=== PATIENT | female | born 1940 | race African-American/Black ===

== ENCOUNTER 2016-06-11 14:03 | Inpatient (IN) | payer MEDICARE, MEDICAID ==
[~2016-06-11] VITALS: Ht 165.1 cm; Wt 88.5 kg
[~2016-06-11 14:03] MED LIST: ACETAMINOPHEN325 M1 ORAL; ALDACTONE25 MG ORAL; APRESOLINE10 MG ORAL; ATORVASTATIN CA10 MG ORAL; BP MEDS; COLACE100 MG ORAL; FLUCONAZOLE100 MG ORAL; FUROSEMIDE40 MG ORAL; GABAPENTIN100 MG ORAL; METFORMIN HCL500 M1 ORAL; MONTELUKAST SOD10 MG ORAL; NAMENDA5 MG ORAL; NOVOLOG100 UNITS1 SUBQ; POTASSIUM20 MEQ/15 ORAL; PROTONIX40 MG ORAL; TORADOL30 MG IV; UNOBMED; VERAPAMIL ER240 MG ORAL; XARELTO15 MG NG
[2016-06-11 14:10] VITALS: BP 102/43
[2016-06-11] MEDS ORDERED: Vancomycin 1.5gm/D5W 300ml 325 ML IVPB ONE (14:30)
--- NOTE | 2016-06-11 14:37 | Emergency Room Report ---
History of Present Illness General Chief Complaint: Altered Level of Consciousness Source: Medical Record, EMS Present Illness HPI 75 YOF BIBEMS from [facility] for "more altered than usual" and fever. EMS states patient currently being treated for UTI (Bactrim per SNF paperwork). Vitals there were hypotension, tachycardia, hypoxia. Improved with supplemental O2, IVF bolus en route. Fingerstick WNL. History of dementia. Patient not providing additional info. HPI otherwise limited. No family members present at time of endorsement. Allergies: Coded Allergies: ERYTHROMYCIN BASE (Verified Allergy, Intermediate, 06/11/16) MEPERIDINE (Verified Allergy, Unknown, 06/11/16) PENICILLINS (Verified Allergy, Unknown, 06/11/16) Patient History Past Medical History: CHF, dementia Past Surgical History: pacemaker Pertinent Family History: unable to obtain Social History: Denies: alcohol use, drug use, smoking Now: No Immunizations: UTD Reviewed Nursing Documentation: PMH: Agreed, PSxH: Agreed Nursing Documentation-PMH Hx Cardiac Problems: Yes Hx Hypertension: Yes Hx Pacemaker: Yes Hx Asthma: Yes Hx COPD: Yes Hx Diabetes: Yes Hx Cancer: No Hx Gastrointestinal Problems: Yes History Of Psychiatric Problem: Yes - dementia Hx Neurological Problems: Yes - neuralgia Review of Systems All Other Systems: limited Physical Exam Vital Signs Date Time Temp Pulse Resp B/P Pulse Ox O2 Delivery O2 Flow Rate FiO2 06/11/16 14:05 99.7 80 20 90/60 98 Nasal Cannula Sp02 EP Interpretation: reviewed, abnormal General Appearance: no apparent distress, non-toxic, lethargic, obese, other Head: normocephalic, atraumatic Eyes: bilateral eye EOMI, bilateral eye PERRL ENT: normal ENT inspection, hearing grossly normal, normal pharynx, no angioedema, TMs + canals normal, uvula midline, dry mucus membranes Neck: normal inspection, full range of motion, supple, thyroid normal, no meningismus, no bony tend Respiratory: normal inspection, lungs clear, normal breath sounds, no respiratory distress, no retraction, no wheezing Cardiovascular #1: regular rate, rhythm, no edema Gastrointestinal: normal inspection, normal bowel sounds, non tender, soft, no guarding, no hernia Genitourinary: no CVA tenderness Musculoskeletal: normal inspection, back normal, normal range of motion, Lorne' s Sign negative, other - lower extremity contractures Neurologic: normal inspection, responsive, customer service assistant III-XII nml as tested, motor strength/tone normal, other - Opens eyes to commands. Knows name. Skin: normal inspection, normal color, no rash Lymphatic: normal inspection Procedures Critical Care Time Critical Care Time CC time 35 minutes Care for a 75 YOF with AMS, febrile, hypotensive DDx includes likely sepsis, metabolic abnormality Patient is disoriented, no obvious sign of trauma. Comprehensive physical exam completed, atraumatic. Unreliable history from patient. Labs include CBC, chem panel, CT head, EKG 12 lead and constant cardiac rhythm strip monitoring, IV established, Blood Cx Airway adequately maintained by patient upon arrival. EKG reveals atrial paced Empiric Abx and IVF bolus given for suspected sepsis. Will not give full bolus because of patient's history of CHF. Physician spent 35 minutes of direct critical care time monitoring patient's respiratory, cardiac and neurological status, reassessment, review of imaging, labs and discussion with attending hospitalist. Does not include procedures Medical Decision Making Medicare Attestation I Derek Anne MD hereby attest that the medical record entry for date of service, 03/17/16 accurately reflects signatures/notations that I made in my capacity as MD when I treated/diagnosed the above listed Medicare beneficiary. I attest that this information is true, accurate and complete to the best of my knowledge. I understand that any falsification, omission, or concealment of material fact may subject me to administrative, civil, or criminal liability. This patient warrants hospital admission for extreme of age and has a condition that cannot be treated as outpatient. Diagnostic Impression: Primary Impression: Altered mental status Qualified Codes: R41.82 - Altered mental status, unspecified Additional Impression: Sepsis due to urinary tract infection ER Course Labs: 21k. UA + for nitrites. CXR does not show PNA. Unchanged from previous Empiric Abx given DC tylenol given for fever Only 1L NS given as patient with history of CHF and has interstitial fluid on exam Endorsed to Dr Echevarria at 346pm for tele admission EKG Diagnostic Results Rate: tachycardiac, other - atrial senses, ventricular paced Rhythm Strip Diag. Results EP Interpretation: yes Rate: 109 Rhythm: no PVC's, no ectopy Chest X-Ray Diagnostic Results EP Interpretation: Yes Findings: no consolidation, no effusion, no pneumothorax, no acute cardiopulmonary disease Number of Views: 1 Last Vital Signs Date Time Temp Pulse Resp B/P Pulse Ox O2 Delivery O2 Flow Rate FiO2 06/11/16 14:05 99.7 80 20 90/60 98 Nasal Cannula Status: improved Disposition: ADMITTED INPATIENT Condition: Critical Referrals: Zion Echevarria MD (PCP) DEREK ANNE M.D. Jun 11, 2016 14:37
--- NOTE | 2016-06-11 15:03 | Diagnostic Imaging Report ---
Indication: Dyspnea Comparison: 09/01/15 A single view chest radiograph was obtained. Findings: There is hazy increased vascularity within the lungs. Findings do not appear significantly different from the last study. There is a pacemaker on the left. Aorta is enlarged and calcified. Bones are osteopenic. Impression: Some pulmonary vascularity without overt CHF.
[2016-06-11] MEDS ORDERED: Acetaminophen 650 MG SUPP RECTAL ONE (15:15)
[2016-06-11 15:18] LABS: APPEARANCE,URINE CLEAR; KETONES,URINE NEGATIVE (NEGATIVE); LEUKOCYTE ESTERASE ,URINE 1+ (NEGATIVE); MEAN CORPUSCULAR HEMOGLOBIN 27.5 PG (27.0-31.0); MEAN CORPUSCULAR HGB CONC 32.7 G/DL (32.0-36.0); MEAN CORPUSCULAR VOLUME 84 FL (80-99); MEAN PLATELET VOLUME 7.8 FL (6.5-10.1); NITRITE,URINE POSITIVE (NEGATIVE); PH,URINE 6 (4.5-8.0); PLATELET COUNT 110 K/UL (150-450); PROTEIN,URINE NEGATIVE (NEGATIVE); RED BLOOD COUNT 5.31 M/UL (4.20-5.40); RED CELL DISTRIBUTION WIDTH 13.4 % (11.6-14.8); UROBILINOGEN,URINE NORMAL MG/DL (0.0-1.0); WHITE BLOOD COUNT 20.6 K/UL (4.8-10.8)
[2016-06-11 15:21] VITALS: BP 103/52
[2016-06-11 15:25] LABS: BACTERIA,URINE MANY /HPF; RBC,URINE 0-2 /HPF (0 - 2); SQUAMOUS EPITHELIAL CELL,UR OCCASIONAL /LPF (NONE/OCC)
[2016-06-11] MEDS ORDERED: GABAPENTIN300 MG ORAL (15:31)
[2016-06-11] MEDS ORDERED: DUONEB 0.5-3(2.53 ML HHN (15:31)
[2016-06-11] MEDS ORDERED: IBUPROFEN600 MG ORAL (15:31)
[2016-06-11 15:44] LABS: ALANINE AMINOTRANSFERASE 170 U/L (3-33); ANION GAP 19 (5-15); ASPARTATE AMINO TRANSFERASE 90 U/L (5-40); CALCIUM 8.9 mg/dL (8.6-10.2); CARBON DIOXIDE 25 mEQ/L (20-30); CHLORIDE 90 mEQ/L (98-107); CREATININE 1.2 mg/dL (0.5-0.9); HEMOLYSIS 11; POTASSIUM 3.9 mEQ/L (3.4-4.9); SODIUM 134 mEQ/L (135-145); TOTAL PROTEIN 7.2 g/dL (6.6-8.7)
[2016-06-11] MEDS ORDERED: DiphenhydrAMINE 50mg/ml Inj IM ONE (15:45)
[2016-06-11] MEDS ORDERED: LORazepam Inj 2mg/ml 1ml IM ONE (15:45)
[2016-06-11 15:46] LABS: TROPONIN I < 0.30 ng/mL (<=0.30)
[2016-06-11 15:51] LABS: REFLEX LACTIC ACID YES OR NO YES
[2016-06-11 15:54] LABS: CKMB < 1.5 ng/mL (< 3.8)
[2016-06-11 16:07] LABS: BILIRUBIN,DIRECT 0.4 mg/dL (0.1-0.3)
[2016-06-11 16:17] LABS: BAND NEUTROPHILS % (MANUAL) 10 % (0-8); LYMPHOCYTES % (MANUAL) 8 % (20-45); NEUTROPHILS % (MANUAL) 81 % (45-75); TOTAL CELLS COUNTED 100
[2016-06-11 16:26] LABS: BASOPHILS % (MANUAL) 0 % (0-2); EOSINOPHILS % (MANUAL) 0 % (0-3); PLATELET ESTIMATE DECREASED
[2016-06-11 16:33] LABS: PLATELET MORPHOLOGY NORMAL
[2016-06-11 17:56] VITALS: BP 92/49
[2016-06-11 20:00] VITALS: BP 85/51
[2016-06-11] MEDS: Docusate 100mg cap ORAL SCH (20:36)
[2016-06-11] MEDS ORDERED: NovoLOG Insulin Flexpen SUBQ SCH (21:00)
--- NOTE | 2016-06-11 21:39 | History & Physical ---
History and Physical History & Physicial job # [id number] Zion Echevarria MD Jun 11, 2016 21:39
[2016-06-11] MEDS: Cefepime HCl 1 GM in D5W 55 ML IVPB SCH (22:19)
[2016-06-11] MEDS: Xarelto 15mg tab ORAL SCH (22:28)
[2016-06-11] MEDS: Verapamil 80mg tab ORAL SCH (22:28)
[2016-06-11] MEDS: NovoLOG Insulin Flexpen SUBQ SCH (22:30)
[2016-06-11] MEDS ORDERED: Acetaminophen 650 MG SUPP RECTAL PRN (23:00)
[2016-06-12] VITALS: BP 98/51
--- NOTE | 2016-06-12 01:08 | History and Physical Report ---
DATE OF ADMISSION: 06/11/2016 CHIEF COMPLAINT: Transfer from the skilled nursing of [facility] due to the altered mental status. HISTORY OF PRESENT ILLNESS: This is a 75-year-old very unfortunate female, with past medical history significant for sick sinus syndrome status post pacemaker, dyslipidemia, hypertension, chronic obstructive pulmonary disease, and asthma, who has presented to the hospital from [facility] after she was noted to be in altered mental status. The patient was noted to be febrile and was currently on Bactrim for a urinary tract infection, however, her symptoms not improved and she become hypotensive, tachycardic, and hypoxemic, and subsequently, the patient required oxygen and a bolus of fluid was given in route to the hospital. The patient's blood glucose level was checked and was within normal. Shortly after initial evaluation in the emergency room, the patient was admitted to the hospital with altered mental status, most likely secondary to toxic metabolic encephalopathy as well as sepsis secondary to urinary tract infection. History is very limited and the patient's history mostly taken from the previous admission to [place] as well as the skilled nursing documentation. PAST MEDICAL HISTORY: As above. History of sick sinus syndrome status post pacemaker, dyslipidemia, hypertension, chronic obstructive pulmonary disease, asthma, dysphagia, history of urinary tract infection in the past with a pyelonephritis and Enterococcus urinary tract infection, and the patient has a history of diabetes type 2. Previous admission was noted at the [facility] on 08/27/2015 with the same presentation with altered mental status as well as dehydration. PAST SURGICAL HISTORY: Significant for pacemaker in left chest wall. MEDICATIONS: At home significant for Lipitor, Colace, gabapentin, hydralazine, Namenda, Singulair, Protonix, and verapamil. ALLERGIES: Penicillin, meperidine, codeine, and erythromycin basis medication. However, the patient tolerated cefepime and cephalosporins in the past. SOCIAL HISTORY: assisted resident. No smoking, alcohol, or drugs. FAMILY HISTORY: Noncontributory. CODE STATUS: Full Code. REVIEW OF SYSTEMS: Limited secondary to the patient's status. She is not verbal at this time and confused. However at the nursing documentation, the patient was febrile and hypotensive. PHYSICAL EXAMINATION: VITAL SIGNS: On admission from the ER, temperature 99.7 degrees, pulse of 80, respirations 20, and blood pressure 90/60. GENERAL: The patient is awake, responsive to verbal comment only with one word, however, cannot follow commands. HEENT: Pupils reactive to light. Extraocular movements are intact. NECK: Supple. No JVD. LUNGS: Good air entry. Poor inspiratory effort. No wheezing or rales. HEART: Reveals S1 and S2. Tachycardic. Pacemaker in the left upper chest wall was noted. ABDOMEN: Soft and nontender. Mildly obese. EXTREMITIES: No cyanosis, clubbing, or edema. NEUROLOGIC: Very limited secondary to the patient's status. The patient is moving all her extremities very slowly. CENTRAL NERVOUS SYSTEM: Cranial nerves II through XII, unable to obtain due to the patient cannot follow commands. LABORATORY DATA: On admission from the ER, WBC of 20, hemoglobin of 14, hematocrit 44, and platelet is 110,000. Sodium 134, potassium 2.9, chloride 90, bicarb 25, BUN 33, creatinine 1.2, and glucose is 163. Lactic acid is 2.90 and second one is 3.40. Direct bilirubin of 0.4 and total bilirubin of 1.2. AST of 90, ALT of 170, and alkaline phosphatase was 113. First troponin less than 0.30. Urinalysis, +3 occult blood, positive nitrates, +1 leukocytes, 5 to 10 WBCs, and many bacteria. The patient had a chest x-ray and some pulmonary vascularity without overt congestive heart failure. ASSESSMENT: 1. Altered mental status, most likely secondary to toxic metabolic encephalopathy as a result of sepsis. 2. Sepsis secondary to urinary tract infection. 3. Mild obesity. 4. Hyponatremia. 5. Acute kidney injury most likely secondary to dehydration. 6. Dehydration and hypovolemia. 7. Sick sinus syndrome status post pacemaker. 8. Hypertension. 9. Dyslipidemia. 10. Chronic obstructive pulmonary disease and asthma. PLAN: Admit the patient to telemetry. We will follow up laboratory, intravenous hydration, septic workup, broad-spectrum antibiotics vancomycin and cefepime, and resume skilled nursing medications. Keep the patient NPO. We will follow up with the bedside swallow study in the morning and review records from prior admission. Dr. Mayes consultation from Cardiology and Dr. Carlos Woody from ID. Follow up with 2D echo and DVT prophylaxis. The patient is already on Xarelto. Zion Echevarria M.D. DR: YUKI JOB#: [id number] CC:
[2016-06-12 04:25] VITALS: BP 99/50
[2016-06-12] MEDS: NovoLOG Insulin Flexpen SUBQ SCH ×4 (06:30→22:02)
[2016-06-12 08:00] VITALS: BP 107/49
[2016-06-12 08:26] LABS: MEAN CORPUSCULAR HEMOGLOBIN 27.9 PG (27.0-31.0); MEAN CORPUSCULAR HGB CONC 33.2 G/DL (32.0-36.0); MEAN CORPUSCULAR VOLUME 84 FL (80-99); MEAN PLATELET VOLUME 7.7 FL (6.5-10.1); PLATELET COUNT 117 K/UL (150-450); RED BLOOD COUNT 4.29 M/UL (4.20-5.40); RED CELL DISTRIBUTION WIDTH 13.7 % (11.6-14.8)
[2016-06-12 08:36] LABS: ALANINE AMINOTRANSFERASE 125 U/L (3-33); ALBUMIN/GLOBULIN RATIO 0.9 (1.0-2.7); ANION GAP 14 (5-15); ASPARTATE AMINO TRANSFERASE 75 U/L (5-40); CARBON DIOXIDE 26 mEQ/L (20-30); CHLORIDE 96 mEQ/L (98-107); CREATININE 1.2 mg/dL (0.5-0.9); HEMOLYSIS 3; MAGNESIUM 1.7 mg/dL (1.7-2.5); PHOSPHORUS 3.8 mg/dL (2.5-4.8); SODIUM 136 mEQ/L (135-145); TOTAL PROTEIN 6.1 g/dL (6.6-8.7)
[2016-06-12 08:37] LABS: WHITE BLOOD COUNT 26.6 K/UL (4.8-10.8)
[2016-06-12 09:00] LABS: BILIRUBIN,DIRECT 0.5 mg/dL (0.1-0.3)
[2016-06-12] MEDS: Docusate 100mg cap ORAL SCH ×2 (09:00→22:00)
[2016-06-12] MEDS: Verapamil 80mg tab ORAL SCH ×2 (09:00→22:00)
[2016-06-12 10:14] LABS: BAND NEUTROPHILS % (MANUAL) 1 % (0-8); BASOPHILS % (MANUAL) 0 % (0-2); EOSINOPHILS % (MANUAL) 0 % (0-3); HYPOCHROMASIA 1+; LYMPHOCYTES % (MANUAL) 13 % (20-45); NEUTROPHILS % (MANUAL) 81 % (45-75); PLATELET ESTIMATE DECREASED; PLATELET MORPHOLOGY NORMAL; TOTAL CELLS COUNTED 100
--- NOTE | 2016-06-12 11:56 | Wound Care Consultation ---
Wound Assessment Wound Assessment : Wound Number: #1 Wound Present on Admission: Yes New Wound: No Status Change of Wound: No Wound Location Body Site Modif: mid Wound Location Body Site: sacral Wound Type: pressure ulcer Dyan Test: Does not Dyan Pressure Ulcer Stage: IV/unstageable Wound Thickness: Full Thickness Wound Length: 2.0 Wound Width: 2.0 Wound Depth: 0.5 Percent of Wound [place]/Red: 50 Percent of Wound Purple/Maroon: 50 Wound Drainage Description: Serosanguineous Wound Drainage Amount: Moderate Wound Drainage Odor: None/Absent Tissue Surrounding Wound: Macerated Wound General Appearance: Reddened - 50% maroon color also noted to wound bed, Draining Wound Comment #1 Sacral pressure ulcer stage IV/Unstageable. #2 Right and left superior gluteal fold full thickness scar tissue. Recommendation -Local wound care as ordered. -Apply Low air loss overlay mattress. -Turn and reposition. -Keep clean and dry. -Optimize nutrition. -Heel protectors. -Offload affected area. -Assess and notify MD for change of condition. MICHAEL TAMAYO Jun 12, 2016 11:56
[2016-06-12 12:00] VITALS: BP 107/59
[2016-06-12] MEDS ORDERED: Amikacin Rx to dose MISC PRN (13:45)
--- NOTE | 2016-06-12 13:45 | Infectious Diseases Prog Note ---
Assessment/Plan Assessment/Plan Full consult to follow: A) 1) uti, sepsis, ? c.diff., ? hx multi drug resistant uti per pt, ? hx abx 2) allergies - pcn 3) pmh noted P) 1) cefepime, flagyl, amikacin to cover mdr 2) check uc, watch cr closely and wbc, check c.diff. if has diarrhea 3) thank you Subjective Allergies: Coded Allergies: ERYTHROMYCIN BASE (Verified Allergy, Intermediate, 06/11/16) CODEINE (Verified Allergy, Unknown, 06/11/16) MEPERIDINE (Verified Allergy, Unknown, 06/11/16) PENICILLINS (Verified Allergy, Unknown, 06/11/16) Objective Vital Signs Last 24 Hour Vital Signs Date Time Temp Pulse Resp B/P Pulse Ox O2 Delivery O2 Flow Rate FiO2 06/12/16 12:00 95 06/12/16 09:00 89 107/49 06/12/16 08:00 96.9 89 17 107/49 95 Nasal Cannula 2.0 06/12/16 08:00 87 06/12/16 04:25 98.2 89 20 99/50 98 Nasal Cannula 2.0 06/12/16 04:05 91 06/12/16 04:00 86 06/12/16 00:00 98.4 94 20 98/51 100 Nasal Cannula 2.0 06/11/16 20:04 101 06/11/16 20:00 101.7 101 20 85/51 Nasal Cannula 2.0 100 06/11/16 17:56 99.9 89 20 92/49 Nasal Cannula 06/11/16 17:38 85 06/11/16 16:45 100.3 85 24 86/45 97 Nasal Cannula 2.0 06/11/16 16:34 100.3 06/11/16 16:08 100.3 06/11/16 15:21 86 24 103/52 97 Nasal Cannula 2.0 06/11/16 14:10 103.3 112 24 102/43 97 Nasal Cannula 2.0 06/11/16 14:05 99.7 80 20 90/60 98 Nasal Cannula Height (Feet): 5 Height (Inches): 5.00 Weight (Pounds): 195 Microbiology Date/Time Source Procedure Growth Status 06/11/16 14:30 Urine,Clean Catch Urine Culture - Preliminary Gram Negative Bacillus 1 Resulted Laboratory Tests Test 06/11/16 14:30 06/11/16 16:20 06/12/16 07:22 White Blood Count 20.6 K/UL (4.8-10.8) H 26.6 K/UL (4.8-10.8) *H Red Blood Count 5.31 M/UL (4.20-5.40) 4.29 M/UL (4.20-5.40) Hemoglobin 14.6 G/DL (12.0-16.0) 12.0 G/DL (12.0-16.0) Hematocrit 44.7 % (37.0-47.0) 36.0 % (37.0-47.0) L Mean Corpuscular Volume 84 FL (80-99) 84 FL (80-99) Mean Corpuscular Hemoglobin 27.5 PG (27.0-31.0) 27.9 PG (27.0-31.0) Mean Corpuscular Hemoglobin Concent 32.7 G/DL (32.0-36.0) 33.2 G/DL (32.0-36.0) Red Cell Distribution Width 13.4 % (11.6-14.8) 13.7 % (11.6-14.8) Platelet Count 110 K/UL (150-450) L 117 K/UL (150-450) L Mean Platelet Volume 7.8 FL (6.5-10.1) 7.7 FL (6.5-10.1) Neutrophils (%) (Auto) % (45.0-75.0) % (45.0-75.0) Lymphocytes (%) (Auto) % (20.0-45.0) % (20.0-45.0) Monocytes (%) (Auto) % (1.0-10.0) % (1.0-10.0) Eosinophils (%) (Auto) % (0.0-3.0) % (0.0-3.0) Basophils (%) (Auto) % (0.0-2.0) % (0.0-2.0) Differential Total Cells Counted 100 100 Neutrophils % (Manual) 81 % (45-75) H 81 % (45-75) H Lymphocytes % (Manual) 8 % (20-45) L 13 % (20-45) L Monocytes % (Manual) 1 % (1-10) 5 % (1-10) Eosinophils % (Manual) 0 % (0-3) 0 % (0-3) Basophils % (Manual) 0 % (0-2) 0 % (0-2) Band Neutrophils 10 % (0-8) H 1 % (0-8) Platelet Estimate Decreased L Decreased L Platelet Morphology Normal Normal Red Blood Cell Morphology Normal Urine Color Pale yellow Urine Appearance Clear Urine pH 6 (4.5-8.0) Urine Specific [place] 1.010 (1.005-1.035) Urine Protein Negative (NEGATIVE) Urine Glucose (UA) Negative (NEGATIVE) Urine Ketones Negative (NEGATIVE) Urine Occult Blood 3+ (NEGATIVE) H Urine Nitrite Positive (NEGATIVE) H Urine Bilirubin Negative (NEGATIVE) Urine Urobilinogen Normal MG/DL (0.0-1.0) Urine Leukocyte Esterase 1+ (NEGATIVE) H Urine RBC 0-2 /HPF (0 - 2) Urine WBC 5-10 /HPF (0 - 2) H Urine Squamous Epithelial Cells Occasional /LPF Urine Bacteria Many /HPF (NONE) H Sodium Level 134 mEQ/L (135-145) L 136 mEQ/L (135-145) Potassium Level 3.9 mEQ/L (3.4-4.9) 4.0 mEQ/L (3.4-4.9) Chloride Level 90 mEQ/L (98-107) L 96 mEQ/L (98-107) L Carbon Dioxide Level 25 mEQ/L (20-30) 26 mEQ/L (20-30) Anion Gap 19 (5-15) H 14 (5-15) Blood Urea Nitrogen 33 mg/dL (7-23) H 36 mg/dL (7-23) H Creatinine 1.2 mg/dL (0.5-0.9) H 1.2 mg/dL (0.5-0.9) H Estimat Glomerular Filtration Rate mL/min (>60) mL/min (>60) Glucose Level 168 mg/dL (74-106) H 146 mg/dL (74-106) H Hemoglobin A1c 7.0 % (< 6.0) H Lactic Acid Level 2.90 mmol/L (0.66-2.22) H 3.40 mmol/L (0.66-2.22) H Calcium Level 8.9 mg/dL (8.6-10.2) 8.0 mg/dL (8.6-10.2) L Total Bilirubin 1.2 mg/dL (0.0-1.2) 1.2 mg/dL (0.0-1.2) Direct Bilirubin 0.4 mg/dL (0.1-0.3) H 0.5 mg/dL (0.1-0.3) H Aspartate Amino Transf (AST/SGOT) 90 U/L (5-40) H 75 U/L (5-40) H Alanine Aminotransferase (ALT/SGPT) 170 U/L (3-33) H 125 U/L (3-33) H Alkaline Phosphatase 113 U/L (35-104) H 90 U/L (35-104) Total Creatine Kinase 24 U/L (26-140) L Creatine Kinase MB < 1.5 ng/mL (< 3.8) Creatine Kinase MB Relative Index 6.2 Troponin I < 0.30 ng/mL (<=0.30) Total Protein 7.2 g/dL (6.6-8.7) 6.1 g/dL (6.6-8.7) L Albumin 3.6 g/dL (3.5-5.2) 2.9 g/dL (3.5-5.2) L Globulin 3.6 g/dL 3.2 g/dL Albumin/Globulin Ratio 1.0 (1.0-2.7) 0.9 (1.0-2.7) L Hypochromasia 1+ Phosphorus Level 3.8 mg/dL (2.5-4.8) Magnesium Level 1.7 mg/dL (1.7-2.5) Current Medications Medications (Trade) Dose Ordered Sig/Joann Route PRN Reason Start Time Stop Time Status Last Admin Dose Admin Acetaminophen (Tylenol) 650 mg Q4H PRN ORAL Mild Pain / TEMP>101 06/11/16 18:45 07/11/16 18:44 Acetaminophen (Tylenol) 650 mg Q4H PRN RECTAL Mild Pain/Temp > 100.5 06/11/16 23:00 07/11/16 22:59 Atorvastatin Calcium (Lipitor) 10 mg BEDTIME ORAL 06/11/16 21:00 07/11/16 20:59 Cefepime HCl 1 gm/ Dextrose 55 ml @ 110 mls/hr DAILY@2100 IVPB 06/11/16 22:30 06/18/16 22:29 06/11/16 22:19 Dextrose STAT PRN IV Hypoglycemia 06/11/16 21:30 07/11/16 21:29 Docusate Sodium (Colace) 100 mg EVERY 12 HOURS ORAL 06/11/16 21:00 07/11/16 20:59 Ibuprofen (Advil) 200 mg Q4H PRN ORAL For Pain 06/11/16 18:45 07/11/16 18:44 Insulin Aspart (NovoLOG) BEFORE MEALS AND HS SUBQ 06/11/16 22:30 07/11/16 22:29 Pantoprazole (Protonix) 40 mg DAILY ORAL 06/12/16 09:00 07/12/16 08:59 Rivaroxaban (Xarelto) 15 mg QPM ORAL 06/11/16 23:00 07/11/16 22:59 Sodium Chloride (Sodium Chloride 1000ml bag) 1,000 ml @ 75 mls/hr [id number] IV 06/11/16 23:00 07/11/16 22:59 06/12/16 13:19 Verapamil HCl (Calan) 80 mg Q12HR ORAL 06/11/16 23:00 07/11/16 22:59 RAMÓN ALMARAZ 2, 2017 13:45
[2016-06-12] MEDS: metroNIDAZOLE 500mg tab ORAL SCH ×2 (14:42→21:59)
--- NOTE | 2016-06-12 15:00 | Cardiac Electrophysiology PN ---
Subjective Subjective 1. Status post [employer] pacemaker. 2. Hypertension. 3. CHF with EF 40% by echo. 4. Bilateral acute lower extremity deep venous thrombosis, on Xarelto 15 mg b.i.d. 5. Hyperlipidemia. 6. UTI sepsiss Dictated Objective Last 24 Hour Vital Signs Date Time Temp Pulse Resp B/P Pulse Ox O2 Delivery O2 Flow Rate FiO2 06/12/16 12:00 97.5 92 17 107/59 97 Room Air 93 06/12/16 12:00 95 06/12/16 09:00 89 107/49 06/12/16 08:00 96.9 89 17 107/49 95 Nasal Cannula 2.0 06/12/16 08:00 87 06/12/16 04:25 98.2 89 20 99/50 98 Nasal Cannula 2.0 06/12/16 04:05 91 06/12/16 04:00 86 06/12/16 00:00 98.4 94 20 98/51 100 Nasal Cannula 2.0 06/11/16 20:04 101 06/11/16 20:00 101.7 101 20 85/51 Nasal Cannula 2.0 100 06/11/16 17:56 99.9 89 20 92/49 Nasal Cannula 06/11/16 17:38 85 06/11/16 16:45 100.3 85 24 86/45 97 Nasal Cannula 2.0 06/11/16 16:34 100.3 06/11/16 16:08 100.3 06/11/16 15:21 86 24 103/52 97 Nasal Cannula 2.0 Intake and Output 06/11/16 06/12/16 19:00 07:00 Intake Total 1000 ml 600 ml Output Total 650 ml Balance 1000 ml -50 ml IV Total 600 ml Other 1000 ml Output Urine Total 650 ml Laboratory Tests Test 06/11/16 16:20 06/12/16 07:22 Lactic Acid Level 3.40 mmol/L (0.66-2.22) H White Blood Count 26.6 K/UL (4.8-10.8) *H Red Blood Count 4.29 M/UL (4.20-5.40) Hemoglobin 12.0 G/DL (12.0-16.0) Hematocrit 36.0 % (37.0-47.0) L Mean Corpuscular Volume 84 FL (80-99) Mean Corpuscular Hemoglobin 27.9 PG (27.0-31.0) Mean Corpuscular Hemoglobin Concent 33.2 G/DL (32.0-36.0) Red Cell Distribution Width 13.7 % (11.6-14.8) Platelet Count 117 K/UL (150-450) L Mean Platelet Volume 7.7 FL (6.5-10.1) Neutrophils (%) (Auto) % (45.0-75.0) Lymphocytes (%) (Auto) % (20.0-45.0) Monocytes (%) (Auto) % (1.0-10.0) Eosinophils (%) (Auto) % (0.0-3.0) Basophils (%) (Auto) % (0.0-2.0) Differential Total Cells Counted 100 Neutrophils % (Manual) 81 % (45-75) H Lymphocytes % (Manual) 13 % (20-45) L Monocytes % (Manual) 5 % (1-10) Eosinophils % (Manual) 0 % (0-3) Basophils % (Manual) 0 % (0-2) Band Neutrophils 1 % (0-8) Platelet Estimate Decreased L Platelet Morphology Normal Hypochromasia 1+ Sodium Level 136 mEQ/L (135-145) Potassium Level 4.0 mEQ/L (3.4-4.9) Chloride Level 96 mEQ/L (98-107) L Carbon Dioxide Level 26 mEQ/L (20-30) Anion Gap 14 (5-15) Blood Urea Nitrogen 36 mg/dL (7-23) H Creatinine 1.2 mg/dL (0.5-0.9) H Estimat Glomerular Filtration Rate mL/min (>60) Glucose Level 146 mg/dL (74-106) H Calcium Level 8.0 mg/dL (8.6-10.2) L Phosphorus Level 3.8 mg/dL (2.5-4.8) Magnesium Level 1.7 mg/dL (1.7-2.5) Total Bilirubin 1.2 mg/dL (0.0-1.2) Direct Bilirubin 0.5 mg/dL (0.1-0.3) H Aspartate Amino Transf (AST/SGOT) 75 U/L (5-40) H Alanine Aminotransferase (ALT/SGPT) 125 U/L (3-33) H Alkaline Phosphatase 90 U/L (35-104) Total Protein 6.1 g/dL (6.6-8.7) L Albumin 2.9 g/dL (3.5-5.2) L Globulin 3.2 g/dL Albumin/Globulin Ratio 0.9 (1.0-2.7) L Microbiology Date/Time Source Procedure Growth Status 06/11/16 14:30 Urine,Clean Catch Urine Culture - Preliminary Gram Negative Bacillus 1 Resulted JAMAAL LAWS Jun 12, 2016 15:00
--- NOTE | 2016-06-12 15:47 | Consultation ---
History of Present Illness General Date patient seen: Jun 12, 2016 Chief Complaint: Altered Level of Consciousness Referring physician: Dr. Byrd Present Illness HPI 75 year old female with hx of COPD, DM, CVA, bed bound, pace maker brought in by paramedics from [facility] for "more altered than usual" and fever. EMS states patient currently being treated for UTI (Bactrim per SNF paperwork). She also had hypotension, tachycardia, hypoxia. Improved with supplemental O2 , IVF bolus en route. She was diagnosed to have sepsis and received abx in ER. Her initial mental status improved somewhat after initial treatment in the ER. She is admitted to telemetry to further work up Allergies: Coded Allergies: ERYTHROMYCIN BASE (Verified Allergy, Intermediate, 06/11/16) CODEINE (Verified Allergy, Unknown, 06/11/16) MEPERIDINE (Verified Allergy, Unknown, 06/11/16) PENICILLINS (Verified Allergy, Unknown, 06/11/16) Medication History Scheduled Atorvastatin Calcium* (Lipitor*), 10 MG ORAL BEDTIME, (Reported) Docusate Sodium* (Colace*), 100 MG ORAL EVERY 12 HOURS Furosemide* (Lasix*), 40 MG ORAL DAILY Gabapentin* (Gabapentin*), 100 MG ORAL TID Gabapentin* (Gabapentin*), 300 MG ORAL BID, (Reported) Hydralazine HCl (Hydralazine HCl), 25 MG ORAL EVERY 6 HOURS, (Reported) Insulin Aspart (Novolog Flexpen), 0 UNITS SUBQ BEFORE MEALS AND HS Memantine Hcl* (Namenda*), 5 MG ORAL BID, (Reported) Montelukast Sodium* (Montelukast Sodium*), 10 MG ORAL DAILY, (Reported) Pantoprazole* (Protonix*), 40 MG ORAL DAILY Potassium Chloride (Potassium Chloride), 10 MEQ ORAL DAILY Rivaroxaban (Xarelto), 15 MG NG BIAC Spironolactone (Aldactone), 25 MG ORAL DAILY Verapamil Hcl* (Calan Sr*), 250 MG ORAL DAILY, (Reported) Scheduled PRN Acetaminophen* (Acetaminophen*), 650 MG ORAL Q4H PRN for Mild Pain / TEMP>101 Ibuprofen* (Motrin*), 200 MG ORAL Q4HR PRN for For Pain, (Reported) Miscellaneous Medications Ipratropium/Albuterol Sulfate (DuoNeb 0.5-3(2.5)mg/3ml), 3 ML HHN, (Reported) Patient History Healthcare decision maker Resuscitation status Full Code Advanced Directive on File Past Medical/Surgical History Past Medical/Surgical History: (1) Pacemaker (2) Decubitus ulcer (3) COPD (chronic obstructive pulmonary disease) (4) Hypertension (5) Gout Review of Systems All Other Systems: negative except mentioned in HPI Physical Exam General Appearance: WD/WN Lines, tubes and drains: peripheral, central line HEENT: normocephalic Neck: non-tender, normal alignment Breasts: no masses Cardiovascular/Chest: normal peripheral pulses, normal rate, no JVD Abdomen: non tender Last 24 Hour Vital Signs Date Time Temp Pulse Resp B/P Pulse Ox O2 Delivery O2 Flow Rate FiO2 06/12/16 12:00 97.5 92 17 107/59 97 Room Air 93 06/12/16 12:00 95 06/12/16 09:00 89 107/49 06/12/16 08:00 96.9 89 17 107/49 95 Nasal Cannula 2.0 06/12/16 08:00 87 06/12/16 04:25 98.2 89 20 99/50 98 Nasal Cannula 2.0 06/12/16 04:05 91 06/12/16 04:00 86 06/12/16 00:00 98.4 94 20 98/51 100 Nasal Cannula 2.0 06/11/16 20:04 101 06/11/16 20:00 101.7 101 20 85/51 Nasal Cannula 2.0 100 06/11/16 17:56 99.9 89 20 92/49 Nasal Cannula 06/11/16 17:38 85 06/11/16 16:45 100.3 85 24 86/45 97 Nasal Cannula 2.0 06/11/16 16:34 100.3 06/11/16 16:08 100.3 Intake and Output 06/11/16 06/12/16 19:00 07:00 Intake Total 1000 ml 600 ml Output Total 650 ml Balance 1000 ml -50 ml IV Total 600 ml Other 1000 ml Output Urine Total 650 ml Laboratory Tests Test 06/11/16 16:20 06/12/16 07:22 Lactic Acid Level 3.40 mmol/L (0.66-2.22) H White Blood Count 26.6 K/UL (4.8-10.8) *H Red Blood Count 4.29 M/UL (4.20-5.40) Hemoglobin 12.0 G/DL (12.0-16.0) Hematocrit 36.0 % (37.0-47.0) L Mean Corpuscular Volume 84 FL (80-99) Mean Corpuscular Hemoglobin 27.9 PG (27.0-31.0) Mean Corpuscular Hemoglobin Concent 33.2 G/DL (32.0-36.0) Red Cell Distribution Width 13.7 % (11.6-14.8) Platelet Count 117 K/UL (150-450) L Mean Platelet Volume 7.7 FL (6.5-10.1) Neutrophils (%) (Auto) % (45.0-75.0) Lymphocytes (%) (Auto) % (20.0-45.0) Monocytes (%) (Auto) % (1.0-10.0) Eosinophils (%) (Auto) % (0.0-3.0) Basophils (%) (Auto) % (0.0-2.0) Differential Total Cells Counted 100 Neutrophils % (Manual) 81 % (45-75) H Lymphocytes % (Manual) 13 % (20-45) L Monocytes % (Manual) 5 % (1-10) Eosinophils % (Manual) 0 % (0-3) Basophils % (Manual) 0 % (0-2) Band Neutrophils 1 % (0-8) Platelet Estimate Decreased L Platelet Morphology Normal Hypochromasia 1+ Sodium Level 136 mEQ/L (135-145) Potassium Level 4.0 mEQ/L (3.4-4.9) Chloride Level 96 mEQ/L (98-107) L Carbon Dioxide Level 26 mEQ/L (20-30) Anion Gap 14 (5-15) Blood Urea Nitrogen 36 mg/dL (7-23) H Creatinine 1.2 mg/dL (0.5-0.9) H Estimat Glomerular Filtration Rate mL/min (>60) Glucose Level 146 mg/dL (74-106) H Calcium Level 8.0 mg/dL (8.6-10.2) L Phosphorus Level 3.8 mg/dL (2.5-4.8) Magnesium Level 1.7 mg/dL (1.7-2.5) Total Bilirubin 1.2 mg/dL (0.0-1.2) Direct Bilirubin 0.5 mg/dL (0.1-0.3) H Aspartate Amino Transf (AST/SGOT) 75 U/L (5-40) H Alanine Aminotransferase (ALT/SGPT) 125 U/L (3-33) H Alkaline Phosphatase 90 U/L (35-104) Total Protein 6.1 g/dL (6.6-8.7) L Albumin 2.9 g/dL (3.5-5.2) L Globulin 3.2 g/dL Albumin/Globulin Ratio 0.9 (1.0-2.7) L Height (Feet): 5 Height (Inches): 5.00 Weight (Pounds): 195 Medications Current Medications Medications (Trade) Dose Ordered Sig/Joann Route PRN Reason Start Time Stop Time Status Last Admin Dose Admin Acetaminophen (Tylenol) 650 mg Q4H PRN ORAL Mild Pain / TEMP>101 06/11/16 18:45 07/11/16 18:44 Acetaminophen (Tylenol) 650 mg Q4H PRN RECTAL Mild Pain/Temp > 100.5 06/11/16 23:00 07/11/16 22:59 Amikacin Protocol 1 ea 1 ea DAILY PRN MISC Per rx protocol 06/12/16 13:45 07/12/16 13:44 Amikacin Sulfate/ Dextrose (Amikin/D5W) 114 ml @ 228 mls/hr Q36H IV 06/12/16 16:00 06/19/16 15:59 Atorvastatin Calcium (Lipitor) 10 mg BEDTIME ORAL 06/11/16 21:00 07/11/16 20:59 Cefepime HCl 1 gm/ Dextrose 55 ml @ 110 mls/hr DAILY@2100 IVPB 06/11/16 22:30 06/18/16 22:29 06/11/16 22:19 Dextrose STAT PRN IV Hypoglycemia 06/11/16 21:30 07/11/16 21:29 Docusate Sodium (Colace) 100 mg EVERY 12 HOURS ORAL 06/11/16 21:00 07/11/16 20:59 Ibuprofen (Advil) 200 mg Q4H PRN ORAL For Pain 06/11/16 18:45 07/11/16 18:44 Insulin Aspart (NovoLOG) BEFORE MEALS AND HS SUBQ 06/11/16 22:30 07/11/16 22:29 Metronidazole (Flagyl) 500 mg EVERY 8 HOURS ORAL 06/12/16 14:00 06/19/16 13:59 06/12/16 14:42 Pantoprazole (Protonix) 40 mg DAILY ORAL 06/12/16 09:00 07/12/16 08:59 Rivaroxaban (Xarelto) 15 mg QPM ORAL 06/11/16 23:00 07/11/16 22:59 Sodium Chloride (Sodium Chloride 1000ml bag) 1,000 ml @ 75 mls/hr [id number] IV 06/11/16 23:00 07/11/16 22:59 06/12/16 13:19 Verapamil HCl (Calan) 80 mg Q12HR ORAL 06/11/16 23:00 07/11/16 22:59 Assessment/Plan Problem List: (1) Sepsis ICD Codes: A41.9 - Sepsis, unspecified organism SNOMED: 48882252 (2) COPD (chronic obstructive pulmonary disease) ICD Codes: J44.9 - Chronic obstructive pulmonary disease, unspecified SNOMED: 00305303 (3) Toxic metabolic encephalopathy ICD Codes: G92 - Toxic encephalopathy SNOMED: 864661507 (4) Pacemaker ICD Codes: Z95.0 - Presence of cardiac pacemaker SNOMED: 107762464 (5) Functional quadriplegia ICD Codes: R53.2 - Functional quadriplegia SNOMED: 902145122684254 (6) Hypertension ICD Codes: I10 - Essential (primary) hypertension SNOMED: 19183073 Assessment/Plan IV fluids lind cultures IV antibiotics check cultures check electrolytes respiratory treatment titrate fio2 to sat of 92% JONH RODRIGUEZ Jun 12, 2016 15:47
[2016-06-12 16:00] VITALS: BP 155/95
[2016-06-12] MEDS: Amikacin 1,000 MG in D5W 110 ML IV SCH (16:57)
[2016-06-12] MEDS: Xarelto 15mg tab ORAL SCH (16:57)
--- NOTE | 2016-06-12 17:12 | Internal Med Progress Note ---
Subjective Date of Service: Jun 12, 2016 Physician Name Chema Vázquez Attending Physician Zion Echevarria MD Current Medications Medications (Trade) Dose Ordered Sig/Joann Route PRN Reason Start Time Stop Time Status Last Admin Dose Admin Acetaminophen (Tylenol) 650 mg Q4H PRN ORAL Mild Pain / TEMP>101 06/11/16 18:45 07/11/16 18:44 06/12/16 16:58 Acetaminophen (Tylenol) 650 mg Q4H PRN RECTAL Mild Pain/Temp > 100.5 06/11/16 23:00 07/11/16 22:59 Amikacin Protocol 1 ea 1 ea DAILY PRN MISC Per rx protocol 06/12/16 13:45 07/12/16 13:44 Amikacin Sulfate/ Dextrose (Amikin/D5W) 114 ml @ 228 mls/hr Q36H IV 06/12/16 16:00 06/19/16 15:59 06/12/16 16:57 Atorvastatin Calcium (Lipitor) 10 mg BEDTIME ORAL 06/11/16 21:00 07/11/16 20:59 Cefepime HCl 1 gm/ Dextrose 55 ml @ 110 mls/hr DAILY@2100 IVPB 06/11/16 22:30 06/18/16 22:29 06/11/16 22:19 Dextrose STAT PRN IV Hypoglycemia 06/11/16 21:30 07/11/16 21:29 Docusate Sodium (Colace) 100 mg EVERY 12 HOURS ORAL 06/11/16 21:00 07/11/16 20:59 Ibuprofen (Advil) 200 mg Q4H PRN ORAL For Pain 06/11/16 18:45 07/11/16 18:44 Insulin Aspart (NovoLOG) BEFORE MEALS AND HS SUBQ 06/11/16 22:30 07/11/16 22:29 06/12/16 17:01 Metronidazole (Flagyl) 500 mg EVERY 8 HOURS ORAL 06/12/16 14:00 06/19/16 13:59 06/12/16 14:42 Ondansetron HCl (Zofran) 4 mg Q4H PRN IVP Nausea & Vomiting 06/12/16 16:45 07/12/16 16:44 06/12/16 17:00 Pantoprazole (Protonix) 40 mg DAILY ORAL 06/12/16 09:00 07/12/16 08:59 Rivaroxaban (Xarelto) 15 mg QPM ORAL 06/11/16 23:00 07/11/16 22:59 06/12/16 16:57 Sodium Chloride (Sodium Chloride 1000ml bag) 1,000 ml @ 75 mls/hr [id number] IV 06/11/16 23:00 07/11/16 22:59 06/12/16 13:19 Verapamil HCl (Calan) 80 mg Q12HR ORAL 06/11/16 23:00 07/11/16 22:59 Allergies: Coded Allergies: ERYTHROMYCIN BASE (Verified Allergy, Intermediate, 06/11/16) CODEINE (Verified Allergy, Unknown, 06/11/16) MEPERIDINE (Verified Allergy, Unknown, 06/11/16) PENICILLINS (Verified Allergy, Unknown, 06/11/16) ROS Limited/Unobtainable: Yes Subjective 75 YO F admitted with altered mental status. Now Urinary tract infection. C/O nausea and vomiting. Cover for Int Med-Dr Echevarria. Objective Last Vital Signs Date Time Temp Pulse Resp B/P Pulse Ox O2 Delivery O2 Flow Rate FiO2 06/12/16 12:00 97.5 92 17 107/59 97 Room Air 93 06/12/16 08:00 2.0 06/11/16 20:00 100 General Appearance: WD/WN, moderate distress, obese EENT: PERRL/EOMI, normal ENT inspection Neck: non-tender, normal alignment, supple Cardiovascular: normal peripheral pulses, normal rate, regular rhythm, no gallop/murmur, no JVD Respiratory/Chest: chest wall non-tender, lungs clear, normal breath sounds, no respiratory distress, no accessory muscle use Abdomen: no organomegaly, no mass, decreased bowel sounds, guarding, tender Extremities: normal range of motion Neurologic: community services officer II-XII grossly normal, no motor/sensory deficits Skin: normal pigmentation, warm/dry Laboratory Tests Test 06/12/16 07:22 White Blood Count 26.6 K/UL (4.8-10.8) *H Red Blood Count 4.29 M/UL (4.20-5.40) Hemoglobin 12.0 G/DL (12.0-16.0) Hematocrit 36.0 % (37.0-47.0) L Mean Corpuscular Volume 84 FL (80-99) Mean Corpuscular Hemoglobin 27.9 PG (27.0-31.0) Mean Corpuscular Hemoglobin Concent 33.2 G/DL (32.0-36.0) Red Cell Distribution Width 13.7 % (11.6-14.8) Platelet Count 117 K/UL (150-450) L Mean Platelet Volume 7.7 FL (6.5-10.1) Neutrophils (%) (Auto) % (45.0-75.0) Lymphocytes (%) (Auto) % (20.0-45.0) Monocytes (%) (Auto) % (1.0-10.0) Eosinophils (%) (Auto) % (0.0-3.0) Basophils (%) (Auto) % (0.0-2.0) Differential Total Cells Counted 100 Neutrophils % (Manual) 81 % (45-75) H Lymphocytes % (Manual) 13 % (20-45) L Monocytes % (Manual) 5 % (1-10) Eosinophils % (Manual) 0 % (0-3) Basophils % (Manual) 0 % (0-2) Band Neutrophils 1 % (0-8) Platelet Estimate Decreased L Platelet Morphology Normal Hypochromasia 1+ Sodium Level 136 mEQ/L (135-145) Potassium Level 4.0 mEQ/L (3.4-4.9) Chloride Level 96 mEQ/L (98-107) L Carbon Dioxide Level 26 mEQ/L (20-30) Anion Gap 14 (5-15) Blood Urea Nitrogen 36 mg/dL (7-23) H Creatinine 1.2 mg/dL (0.5-0.9) H Estimat Glomerular Filtration Rate mL/min (>60) Glucose Level 146 mg/dL (74-106) H Calcium Level 8.0 mg/dL (8.6-10.2) L Phosphorus Level 3.8 mg/dL (2.5-4.8) Magnesium Level 1.7 mg/dL (1.7-2.5) Total Bilirubin 1.2 mg/dL (0.0-1.2) Direct Bilirubin 0.5 mg/dL (0.1-0.3) H Aspartate Amino Transf (AST/SGOT) 75 U/L (5-40) H Alanine Aminotransferase (ALT/SGPT) 125 U/L (3-33) H Alkaline Phosphatase 90 U/L (35-104) Total Protein 6.1 g/dL (6.6-8.7) L Albumin 2.9 g/dL (3.5-5.2) L Globulin 3.2 g/dL Albumin/Globulin Ratio 0.9 (1.0-2.7) L Microbiology Date/Time Source Procedure Growth Status 06/11/16 14:30 Urine,Clean Catch Urine Culture - Preliminary Gram Negative Bacillus 1 Resulted Intake and Output 06/11/16 06/12/16 19:00 07:00 Intake Total 1000 ml 600 ml Output Total 650 ml Balance 1000 ml -50 ml IV Total 600 ml Other 1000 ml Output Urine Total 650 ml Assessment/Plan Problem List: (1) DVT (deep venous thrombosis) Assessment & Plan: Cont xarelto. (2) Renal failure Assessment & Plan: Pre renal. ?dehydration? Cont IV fluids. (3) Sick sinus syndrome (4) UTI (urinary tract infection) Assessment & Plan: Gram neg eloise. Cont cefepime, flagyl and amikacin per ID. Await ID and sensitivity. (5) Altered mental status Assessment & Plan: Due to UTI. (6) Toxic metabolic encephalopathy (7) Pacemaker (8) Sepsis Assessment & Plan: See ID note. (9) Hypertension Assessment & Plan: Cont verapamil. (10) COPD (chronic obstructive pulmonary disease) (11) Hypercholesterolemia (12) Dysphagia (13) Leukocytosis (14) Nausea & vomiting Assessment & Plan: Start zofran. Status: not improved CHEMA VÁZQUEZ Jun 12, 2016 17:12
[2016-06-12 17:47] LABS: LIPASE 25 U/L (< 60)
[2016-06-12 17:51] LABS: AMYLASE 969 U/L (10-110)
[2016-06-12 20:00] VITALS: BP 109/60
--- NOTE | 2016-06-12 21:10 | Consultation ---
DATE OF CONSULTATION: 06/12/2016 CARDIOLOGY CONSULTATION REFERRING PHYSICIAN: Zion Echevarria M.D. REASON FOR CONSULTATION: Evaluation of the patient's pacemaker as well as hypertension. HISTORY OF PRESENT ILLNESS: The patient is a 75-year-old lady with a history of sick sinus syndrome status post [employer] pacemaker implantation, hyperlipidemia and COPD and asthma, who presented from [facility] for altered mental status. The patient was noted to be febrile, was already on Bactrim for UTI. The patient also became hypotensive, tachycardic and hypoxic and required IV bolus as well as oxygen. In the emergency room, the patient was still altered and also due to metabolic encephalopathy and sepsis secondary to urinary tract infection. At the time of my evaluation, the patient is on telemetry unit, denies any chest pain and quite alert and oriented. PAST MEDICAL HISTORY: 1. Hypertension. 2. Diabetes. 3. Hyperlipidemia. 4. Sick sinus syndrome status post [employer] pacemaker implantation. 5. COPD and asthma. 6. Urinary tract infection with pyelonephritis, with the most recent hospitalization of [place] in August 2015. PAST SURGICAL HISTORY: Permanent pacemaker placement. MEDICATIONS: Per reconciliation. ALLERGIES: She is allergic to penicillin, meperidine, codeine and erythromycin. SOCIAL HISTORY: She lives in correction. Does smoke or drink alcohol. FAMILY HISTORY: Noncontributory. REVIEW OF SYSTEMS: Negative other than what was mentioned in history of present illness. PHYSICAL EXAMINATION: VITAL SIGNS: Blood pressure is 107/59, pulse is 95, respirations 18, and she is afebrile. HEAD AND NECK: No JVD. LUNGS: Clear. CARDIOVASCULAR: Regular S1 and S2 with no gallop or murmur. The pacemaker is left subclavian. ABDOMEN: Soft, but obese. EXTREMITIES: There is 1+ pitting edema. LABORATORY AND DIAGNOSTIC DATA: White count of 26.6, hemoglobin 12 and hematocrit 36, and platelets of 117,000. Sodium 136, potassium 4.0, BUN of 36, creatinine 1.2 and glucose of 146. INR is 1.2. Vancomycin level was 7.3, but it was from August. Urinalysis was positive for nitrites with 5 to 10 WBC. ASSESSMENT AND PLAN: 1. Status post [employer] pacemaker placement. We will interrogate the pacemaker for further evaluation. The patient's insisted that the battery needs to be changed, but again we will interrogate the pacemaker. 2. Hypertension. The patient on verapamil 80 mg b.i.d. 3. Hyperlipidemia, on Lipitor. 4. Urinary tract infection and sepsis on broad-spectrum antibiotics with amikacin and Flagyl per Dr. Woody. 5. Chronic obstructive pulmonary disease, although the patient is currently on Xarelto, but EKG is sinus rhythm and echocardiogram showed ejection fraction of 40% to 45%. with no burden of atrial fibrillation if she has any atrial fibrillation, but my last note in 2015, the patient was on for bilateral lower extremity DVT. Thank you very much Dr. Echevarria for allowing me to participate in the care of this patient. Please do not hesitate to contact me for any questions regarding my evaluation. Juve Mayes M.D. DR: JOSS JOB#: [id number] CC:
[2016-06-12] MEDS: Cefepime HCl 1 GM in D5W 55 ML IVPB SCH (21:59)
[2016-06-13] VITALS: BP 103/58
[2016-06-13 04:12] VITALS: BP 92/54
[2016-06-13 04:22] LABS: BASOPHILS % (AUTO) 0.9 % (0.0-2.0); EOSINOPHILS % (AUTO) 0.7 % (0.0-3.0); LYMPHOCYTES % (AUTO) 10.7 % (20.0-45.0); MEAN CORPUSCULAR HEMOGLOBIN 27.8 PG (27.0-31.0); MEAN CORPUSCULAR HGB CONC 33.2 G/DL (32.0-36.0); MEAN CORPUSCULAR VOLUME 84 FL (80-99); MEAN PLATELET VOLUME 7.3 FL (6.5-10.1); MONOCYTES % (AUTO) 6.6 % (1.0-10.0); NEUTROPHILS % (AUTO) 81.1 % (45.0-75.0); PLATELET COUNT 116 K/UL (150-450); RED CELL DISTRIBUTION WIDTH 13.4 % (11.6-14.8); WHITE BLOOD COUNT 16.1 K/UL (4.8-10.8)
[2016-06-13 04:39] LABS: ANION GAP 12 (5-15); CALCIUM 8.7 mg/dL (8.6-10.2); CARBON DIOXIDE 27 mEQ/L (20-30); CHLORIDE 100 mEQ/L (98-107); CREATININE 0.9 mg/dL (0.5-0.9); HEMOLYSIS 0; POTASSIUM 3.9 mEQ/L (3.4-4.9); SODIUM 139 mEQ/L (135-145)
[2016-06-13] MEDS: metroNIDAZOLE 500mg tab ORAL SCH ×3 (06:00→22:00)
[2016-06-13] MEDS: NovoLOG Insulin Flexpen SUBQ SCH ×4 (06:23→22:07)
[2016-06-13 06:27] LABS: BILIRUBIN,DIRECT 0.6 mg/dL (0.1-0.3)
[2016-06-13 07:46] VITALS: BP 108/58
[2016-06-13] MEDS: Docusate 100mg cap ORAL SCH ×2 (09:00→21:00)
[2016-06-13] MEDS: Verapamil 80mg tab ORAL SCH ×2 (09:00→21:00)
[2016-06-13 11:25] VITALS: BP 107/63
[2016-06-13 12:26] LABS: OTHERS PATHOLOGIST COMMENT
--- NOTE | 2016-06-13 13:42 | Diagnostic Imaging Report ---
Indications: Nausea Technique: AP abdomen Findings: Comparison: 08/31/2015 Bowel gas pattern remains unremarkable. Right upper quadrant surgical clips, lumbar vertebral degenerative changes, scattered vascular calcifications again noted. Surgical clip also noted in left hemipelvis, are excluded from image previously. Mondragon catheter in place. IMPRESSION: No evidence of acute abdominopelvic disease, unchanged Chronic changes as described
--- NOTE | 2016-06-13 13:42 | Cardiology Report ---
APPROVED REPORT EXAM: Two-dimensional and M-mode echocardiogram with Doppler and color Doppler. INDICATION Abnormal cardiac study M-Mode DIMENSIONS IVSd1.7 (0.7-1.1cm)Left Atrium (MM)3.8 (1.6-4.0cm) LVDd5.1 (3.5-5.6cm)Aortic Root3.0 (2.0-3.7cm) PWd1.5 (0.7-1.1cm)Aortic Cusp Exc.1.0 (1.5-2.0cm) LVDs3.4 (2.5-4.0cm) PWs1.8 cm Technically difficult study due to poor acoustical windows. Normal left ventricular chamber size. Abnormal septal motion. Left ventricular ejection fraction estimated to be 50-55 %. Study quality precludes accurate assessment of regional wall motion. Moderate left ventricular hypertrophy. No evidence of pericardial effusion. Right ventricular chamber size is within normal limits. Aortic valve calcification with decreased cusp excursion c/w mild aortic stenosis. Thickened mitral valve leaflets with normal excursion. Mitral annulus and aortic root calcification. Pulmonic valve not well visualized. Normal tricuspid valve structure. IVC measured at 2.2 cm with physiologic collapse. Pacemaker wire present in the right side chambers. A color flow and spectral Doppler study was performed and revealed: Trace aortic regurgitation. Peak aortic valve gradient of 18 mm Hg and a mean of 11 mmHg. Aortic valve area 1.9 cm2 calculated by continuity equation. Mild mitral regurgitation. Mitral diastolic velocities suggest reduced left ventricular relaxation c/w mild LV diastolic dysfunction (Grade I ). Mild tricuspid regurgitation. Tricuspid systolic velocities suggests peak right ventricular systolic pressure of 50 mmHg, consistent with moderate pulmonary hypertension.
--- NOTE | 2016-06-13 14:53 | Cardiac Electrophysiology PN ---
Assessment/Plan Assessment/Plan 1. Status post [employer] pacemaker. Interrogation showed normal function. 2. Hypertension. On Verapamil 80 bid. 3. CHF with EF 40% by prior echo. Now 50-55% by echo yesterday. 4. Bilateral acute lower extremity deep venous thrombosis, on Xarelto 15 mg daily 5. Hyperlipidemia. 6. UTI sepsis DW RN Subjective Subjective Felling better.Denies any chest pain. Objective Last 24 Hour Vital Signs Date Time Temp Pulse Resp B/P Pulse Ox O2 Delivery O2 Flow Rate FiO2 06/13/16 12:09 98.8 06/13/16 11:25 100.0 83 18 107/63 99 Nasal Cannula 2.0 06/13/16 09:00 82 108/58 06/13/16 08:00 80 06/13/16 07:46 99.0 82 18 108/58 99 Nasal Cannula 2.0 06/13/16 04:12 99.7 87 20 92/54 100 Nasal Cannula 2.0 06/13/16 04:00 81 06/13/16 01:44 81 06/13/16 00:00 98.0 79 24 103/58 100 Nasal Cannula 2.0 06/12/16 22:00 81 109/60 06/12/16 20:00 106 06/12/16 20:00 96.6 81 20 109/60 Nasal Cannula 2.0 99 06/12/16 16:00 96 06/12/16 16:00 102.0 125 20 155/95 99 Room Air Intake and Output 06/12/16 06/13/16 19:00 07:00 Intake Total 1165 ml 525 ml Output Total 450 ml 600 ml Balance 715 ml -75 ml Intake Oral 640 ml IV Total 525 ml 525 ml Output Urine Total 450 ml 600 ml Laboratory Tests Test 06/13/16 04:00 White Blood Count 16.1 K/UL (4.8-10.8) H Red Blood Count 4.00 M/UL (4.20-5.40) L Hemoglobin 11.1 G/DL (12.0-16.0) L Hematocrit 33.5 % (37.0-47.0) L Mean Corpuscular Volume 84 FL (80-99) Mean Corpuscular Hemoglobin 27.8 PG (27.0-31.0) Mean Corpuscular Hemoglobin Concent 33.2 G/DL (32.0-36.0) Red Cell Distribution Width 13.4 % (11.6-14.8) Platelet Count 116 K/UL (150-450) L Mean Platelet Volume 7.3 FL (6.5-10.1) Neutrophils (%) (Auto) 81.1 % (45.0-75.0) H Lymphocytes (%) (Auto) 10.7 % (20.0-45.0) L Monocytes (%) (Auto) 6.6 % (1.0-10.0) Eosinophils (%) (Auto) 0.7 % (0.0-3.0) Basophils (%) (Auto) 0.9 % (0.0-2.0) Sodium Level 139 mEQ/L (135-145) Potassium Level 3.9 mEQ/L (3.4-4.9) Chloride Level 100 mEQ/L (98-107) Carbon Dioxide Level 27 mEQ/L (20-30) Anion Gap 12 (5-15) Blood Urea Nitrogen 24 mg/dL (7-23) H Creatinine 0.9 mg/dL (0.5-0.9) Estimat Glomerular Filtration Rate mL/min (>60) Glucose Level 137 mg/dL (74-106) H Calcium Level 8.7 mg/dL (8.6-10.2) Total Bilirubin 1.6 mg/dL (0.0-1.2) H Direct Bilirubin 0.6 mg/dL (0.1-0.3) H Aspartate Amino Transf (AST/SGOT) 160 U/L (5-40) H Alanine Aminotransferase (ALT/SGPT) 146 U/L (3-33) H Alkaline Phosphatase 83 U/L (35-104) Total Protein 6.0 g/dL (6.6-8.7) L Albumin 2.8 g/dL (3.5-5.2) L Random Amikacin Level 7.6 ug/mL Microbiology Date/Time Source Procedure Growth Status 06/11/16 14:45 Blood Blood Culture - Preliminary NO GROWTH AFTER 24 HOURS Resulted 06/11/16 14:30 Blood Blood Culture - Preliminary NO GROWTH AFTER 24 HOURS Resulted 06/11/16 16:00 Nasal Nares MRSA Culture - Final NO METHICILLIN RESISTANT STAPH AUREUS... Complete 06/11/16 14:30 Urine,Clean Catch Urine Culture - Final Escherichia Coli - Esbl Complete 06/11/16 16:00 Rectum VRE Culture - Final Enterococcus Faecalis - Vre Complete Objective HEAD AND NECK: No JVD. LUNGS: Clear. CARDIOVASCULAR: Regular S1 and S2 with no gallop or murmur. The pacemaker is left subclavian. ABDOMEN: Soft, but obese. EXTREMITIES: There is 1+ pitting edema. JAMAAL LAWS Jun 13, 2016 14:53
--- NOTE | 2016-06-13 15:08 | Pulmonology Progress Note ---
Assessment/Plan Problems: (1) Sepsis (2) COPD (chronic obstructive pulmonary disease) (3) Toxic metabolic encephalopathy (4) Pacemaker (5) Functional quadriplegia (6) Hypertension Assessment/Plan continue IV antibiotic MRD urosepsis check electrolytes pace maker interrogated, titrate fio2 to sat of 92% Subjective ROS Limited/Unobtainable: No Interval Events: no new complains Constitutional: Reports: no symptoms HEENT: Repors: no symptoms Allergies: Coded Allergies: ERYTHROMYCIN BASE (Verified Allergy, Intermediate, 06/11/16) CODEINE (Verified Allergy, Unknown, 06/11/16) MEPERIDINE (Verified Allergy, Unknown, 06/11/16) PENICILLINS (Verified Allergy, Unknown, 06/11/16) Objective Last 24 Hour Vital Signs Date Time Temp Pulse Resp B/P Pulse Ox O2 Delivery O2 Flow Rate FiO2 06/13/16 12:09 98.8 06/13/16 11:25 100.0 83 18 107/63 99 Nasal Cannula 2.0 06/13/16 09:00 82 108/58 06/13/16 08:00 80 06/13/16 07:46 99.0 82 18 108/58 99 Nasal Cannula 2.0 06/13/16 04:12 99.7 87 20 92/54 100 Nasal Cannula 2.0 06/13/16 04:00 81 06/13/16 01:44 81 06/13/16 00:00 98.0 79 24 103/58 100 Nasal Cannula 2.0 06/12/16 22:00 81 109/60 06/12/16 20:00 106 06/12/16 20:00 96.6 81 20 109/60 Nasal Cannula 2.0 99 06/12/16 16:00 96 06/12/16 16:00 102.0 125 20 155/95 99 Room Air Intake and Output 06/12/16 06/13/16 19:00 07:00 Intake Total 1165 ml 525 ml Output Total 450 ml 600 ml Balance 715 ml -75 ml Intake Oral 640 ml IV Total 525 ml 525 ml Output Urine Total 450 ml 600 ml General Appearance: WD/WN HEENT: normocephalic, atraumatic Respiratory/Chest: chest wall non-tender, lungs clear Cardiovascular: normal peripheral pulses, normal rate Abdomen: normal bowel sounds, soft, non tender Genitourinary: normal external genitalia Skin: no rash 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 Complete 06/11/16 14:30 Urine,Clean Catch Urine Culture - Final Escherichia Coli - Esbl Complete 06/11/16 16:00 Rectum VRE Culture - Final Enterococcus Faecalis - Vre Complete Laboratory Tests 06/13/16 04:00: White Blood Count 16.1H, Red Blood Count 4.00L, Hemoglobin 11.1L, Hematocrit 33.5L, Mean Corpuscular Volume 84, Mean Corpuscular Hemoglobin 27.8, Mean Corpuscular Hemoglobin Concent 33.2, Red Cell Distribution Width 13.4, Platelet Count 116L, Mean Platelet Volume 7.3, Neutrophils (%) (Auto) 81.1H, Lymphocytes (%) (Auto) 10.7L, Monocytes (%) (Auto) 6.6, Eosinophils (%) (Auto) 0.7, Basophils (%) (Auto) 0.9, Sodium Level 139, Potassium Level 3.9, Chloride Level 100, Carbon Dioxide Level 27, Anion Gap 12, Blood Urea Nitrogen 24H, Creatinine 0.9, Estimat Glomerular Filtration Rate , Glucose Level 137H, Calcium Level 8.7 , Total Bilirubin 1.6H, Direct Bilirubin 0.6H, Aspartate Amino Transf (AST/SGOT ) 160H, Alanine Aminotransferase (ALT/SGPT) 146H, Alkaline Phosphatase 83, Total Protein 6.0L, Albumin 2.8L, Random Amikacin Level 7.6 Current Medications Medications (Trade) Dose Ordered Sig/Joann Route PRN Reason Start Time Stop Time Status Last Admin Dose Admin Acetaminophen (Tylenol) 650 mg Q4H PRN ORAL Mild Pain / TEMP>101 06/11/16 18:45 07/11/16 18:44 06/13/16 11:10 Acetaminophen (Tylenol) 650 mg Q4H PRN RECTAL Mild Pain/Temp > 100.5 06/11/16 23:00 07/11/16 22:59 Amikacin Protocol 1 ea 1 ea DAILY PRN MISC Per rx protocol 3/2/17 13:45 07/12/16 13:44 Amikacin Sulfate/ Dextrose (Amikin/D5W) 114 ml @ 228 mls/hr Q36H IV 06/12/16 16:00 06/19/16 15:59 06/12/16 16:57 Atorvastatin Calcium (Lipitor) 10 mg BEDTIME ORAL 06/11/16 21:00 07/11/16 20:59 06/12/16 22:00 Cefepime HCl 1 gm/ Dextrose 55 ml @ 110 mls/hr DAILY@2100 IVPB 06/11/16 22:30 06/18/16 22:29 06/12/16 21:59 Dextrose STAT PRN IV Hypoglycemia 06/11/16 21:30 07/11/16 21:29 Docusate Sodium (Colace) 100 mg EVERY 12 HOURS ORAL 06/11/16 21:00 07/11/16 20:59 06/12/16 22:00 Ibuprofen (Advil) 200 mg Q4H PRN ORAL For Pain 06/11/16 18:45 07/11/16 18:44 Insulin Aspart (NovoLOG) BEFORE MEALS AND HS SUBQ 06/11/16 22:30 07/11/16 22:29 06/13/16 12:50 Metronidazole (Flagyl) 500 mg EVERY 8 HOURS ORAL 06/12/16 14:00 06/19/16 13:59 06/13/16 14:42 Ondansetron HCl (Zofran) 4 mg Q4H PRN IVP Nausea & Vomiting 06/12/16 16:45 07/12/16 16:44 06/12/16 17:00 Pantoprazole (Protonix) 40 mg DAILY ORAL 06/12/16 09:00 07/12/16 08:59 Rivaroxaban (Xarelto) 15 mg QPM ORAL 06/11/16 23:00 07/11/16 22:59 06/12/16 16:57 Sodium Chloride (Sodium Chloride 1000ml bag) 1,000 ml @ 75 mls/hr [id number] IV 06/11/16 23:00 07/11/16 22:59 06/13/16 06:00 Verapamil HCl (Calan) 80 mg Q12HR ORAL 06/11/16 23:00 07/11/16 22:59 06/12/16 22:00 JONH RODRIGUEZ Jun 13, 2016 15:08
--- NOTE | 2016-06-13 15:13 | Infectious Diseases Prog Note ---
Assessment/Plan Assessment/Plan A) 1) esbl e.coli uti, sepsis, ? c.diff., leukocytosis, fevers 2) allergies - pcn 3) pmh noted P) 1) amikacin and flagyl 2) check uc, watch cr closely and wbc, check c.diff. if has diarrhea 3) vre colonization and isolation Subjective Allergies: Coded Allergies: ERYTHROMYCIN BASE (Verified Allergy, Intermediate, 06/11/16) CODEINE (Verified Allergy, Unknown, 06/11/16) MEPERIDINE (Verified Allergy, Unknown, 06/11/16) PENICILLINS (Verified Allergy, Unknown, 06/11/16) Objective Vital Signs Last 24 Hour Vital Signs Date Time Temp Pulse Resp B/P Pulse Ox O2 Delivery O2 Flow Rate FiO2 06/13/16 12:09 98.8 06/13/16 11:25 100.0 83 18 107/63 99 Nasal Cannula 2.0 06/13/16 09:00 82 108/58 06/13/16 08:00 80 06/13/16 07:46 99.0 82 18 108/58 99 Nasal Cannula 2.0 06/13/16 04:12 99.7 87 20 92/54 100 Nasal Cannula 2.0 06/13/16 04:00 81 06/13/16 01:44 81 06/13/16 00:00 98.0 79 24 103/58 100 Nasal Cannula 2.0 06/12/16 22:00 81 109/60 06/12/16 20:00 106 06/12/16 20:00 96.6 81 20 109/60 Nasal Cannula 2.0 99 06/12/16 16:00 96 06/12/16 16:00 102.0 125 20 155/95 99 Room Air Height (Feet): 5 Height (Inches): 5.00 Weight (Pounds): 195 Microbiology Date/Time Source Procedure Growth Status 06/11/16 14:45 Blood Blood Culture - Preliminary NO GROWTH AFTER 24 HOURS Resulted 06/11/16 14:30 Blood Blood Culture - Preliminary NO GROWTH AFTER 24 HOURS Resulted 06/11/16 16:00 Nasal Nares MRSA Culture - Final NO METHICILLIN RESISTANT STAPH AUREUS... Complete 06/11/16 14:30 Urine,Clean Catch Urine Culture - Final Escherichia Coli - Esbl Complete 06/11/16 16:00 Rectum VRE Culture - Final Enterococcus Faecalis - Vre Complete Laboratory Tests Test 06/13/16 04:00 White Blood Count 16.1 K/UL (4.8-10.8) H Red Blood Count 4.00 M/UL (4.20-5.40) L Hemoglobin 11.1 G/DL (12.0-16.0) L Hematocrit 33.5 % (37.0-47.0) L Mean Corpuscular Volume 84 FL (80-99) Mean Corpuscular Hemoglobin 27.8 PG (27.0-31.0) Mean Corpuscular Hemoglobin Concent 33.2 G/DL (32.0-36.0) Red Cell Distribution Width 13.4 % (11.6-14.8) Platelet Count 116 K/UL (150-450) L Mean Platelet Volume 7.3 FL (6.5-10.1) Neutrophils (%) (Auto) 81.1 % (45.0-75.0) H Lymphocytes (%) (Auto) 10.7 % (20.0-45.0) L Monocytes (%) (Auto) 6.6 % (1.0-10.0) Eosinophils (%) (Auto) 0.7 % (0.0-3.0) Basophils (%) (Auto) 0.9 % (0.0-2.0) Sodium Level 139 mEQ/L (135-145) Potassium Level 3.9 mEQ/L (3.4-4.9) Chloride Level 100 mEQ/L (98-107) Carbon Dioxide Level 27 mEQ/L (20-30) Anion Gap 12 (5-15) Blood Urea Nitrogen 24 mg/dL (7-23) H Creatinine 0.9 mg/dL (0.5-0.9) Estimat Glomerular Filtration Rate mL/min (>60) Glucose Level 137 mg/dL (74-106) H Calcium Level 8.7 mg/dL (8.6-10.2) Total Bilirubin 1.6 mg/dL (0.0-1.2) H Direct Bilirubin 0.6 mg/dL (0.1-0.3) H Aspartate Amino Transf (AST/SGOT) 160 U/L (5-40) H Alanine Aminotransferase (ALT/SGPT) 146 U/L (3-33) H Alkaline Phosphatase 83 U/L (35-104) Total Protein 6.0 g/dL (6.6-8.7) L Albumin 2.8 g/dL (3.5-5.2) L Random Amikacin Level 7.6 ug/mL Current Medications Medications (Trade) Dose Ordered Sig/Joann Route PRN Reason Start Time Stop Time Status Last Admin Dose Admin Acetaminophen (Tylenol) 650 mg Q4H PRN ORAL Mild Pain / TEMP>101 06/11/16 18:45 07/11/16 18:44 06/13/16 11:10 Acetaminophen (Tylenol) 650 mg Q4H PRN RECTAL Mild Pain/Temp > 100.5 06/11/16 23:00 07/11/16 22:59 Amikacin Protocol 1 ea 1 ea DAILY PRN MISC Per rx protocol 06/12/16 13:45 07/12/16 13:44 Amikacin Sulfate/ Dextrose (Amikin/D5W) 114 ml @ 228 mls/hr Q36H IV 06/12/16 16:00 06/19/16 15:59 06/12/16 16:57 Atorvastatin Calcium (Lipitor) 10 mg BEDTIME ORAL 06/11/16 21:00 07/11/16 20:59 06/12/16 22:00 Cefepime HCl 1 gm/ Dextrose 55 ml @ 110 mls/hr DAILY@2100 IVPB 06/11/16 22:30 06/18/16 22:29 06/12/16 21:59 Dextrose STAT PRN IV Hypoglycemia 06/11/16 21:30 07/11/16 21:29 Docusate Sodium (Colace) 100 mg EVERY 12 HOURS ORAL 06/11/16 21:00 07/11/16 20:59 06/12/16 22:00 Ibuprofen (Advil) 200 mg Q4H PRN ORAL For Pain 06/11/16 18:45 07/11/16 18:44 Insulin Aspart (NovoLOG) BEFORE MEALS AND HS SUBQ 06/11/16 22:30 07/11/16 22:29 06/13/16 12:50 Metronidazole (Flagyl) 500 mg EVERY 8 HOURS ORAL 06/12/16 14:00 06/19/16 13:59 06/13/16 14:42 Ondansetron HCl (Zofran) 4 mg Q4H PRN IVP Nausea & Vomiting 06/12/16 16:45 4/1/17 16:44 06/12/16 17:00 Pantoprazole (Protonix) 40 mg DAILY ORAL 06/12/16 09:00 07/12/16 08:59 Rivaroxaban (Xarelto) 15 mg QPM ORAL 06/11/16 23:00 07/11/16 22:59 06/12/16 16:57 Sodium Chloride (Sodium Chloride 1000ml bag) 1,000 ml @ 75 mls/hr [id number] IV 06/11/16 23:00 07/11/16 22:59 06/13/16 06:00 Verapamil HCl (Calan) 80 mg Q12HR ORAL 06/11/16 23:00 07/11/16 22:59 06/12/16 22:00 RAMÓN ALMARAZ 3, 2017 15:13
[2016-06-13 16:00] VITALS: BP 105/62
--- NOTE | 2016-06-13 17:35 | Internal Med Progress Note ---
Subjective Date of Service: Jun 13, 2016 Physician Name Wilder Vázquez Attending Physician Zion Echevarria MD Current Medications Medications (Trade) Dose Ordered Sig/Joann Route PRN Reason Start Time Stop Time Status Last Admin Dose Admin Acetaminophen (Tylenol) 650 mg Q4H PRN ORAL Mild Pain / TEMP>101 06/11/16 18:45 07/11/16 18:44 06/13/16 11:10 Acetaminophen (Tylenol) 650 mg Q4H PRN RECTAL Mild Pain/Temp > 100.5 06/11/16 23:00 07/11/16 22:59 Amikacin Protocol 1 ea 1 ea DAILY PRN MISC Per rx protocol 06/12/16 13:45 07/12/16 13:44 Amikacin Sulfate/ Dextrose (Amikin/D5W) 114 ml @ 228 mls/hr Q36H IV 06/12/16 16:00 06/19/16 15:59 06/12/16 16:57 Atorvastatin Calcium (Lipitor) 10 mg BEDTIME ORAL 06/11/16 21:00 07/11/16 20:59 06/12/16 22:00 Dextrose STAT PRN IV Hypoglycemia 06/11/16 21:30 07/11/16 21:29 Docusate Sodium (Colace) 100 mg EVERY 12 HOURS ORAL 06/11/16 21:00 07/11/16 20:59 06/12/16 22:00 Ibuprofen (Advil) 200 mg Q4H PRN ORAL For Pain 06/11/16 18:45 07/11/16 18:44 Insulin Aspart (NovoLOG) BEFORE MEALS AND HS SUBQ 06/11/16 22:30 07/11/16 22:29 06/13/16 12:50 Metronidazole (Flagyl) 500 mg EVERY 8 HOURS ORAL 06/12/16 14:00 06/19/16 13:59 06/13/16 14:42 Ondansetron HCl (Zofran) 4 mg Q4H PRN IVP Nausea & Vomiting 06/12/16 16:45 07/12/16 16:44 06/12/16 17:00 Pantoprazole (Protonix) 40 mg DAILY ORAL 06/12/16 09:00 07/12/16 08:59 Rivaroxaban (Xarelto) 15 mg QPM ORAL 06/11/16 23:00 07/11/16 22:59 06/12/16 16:57 Sodium Chloride (Sodium Chloride 1000ml bag) 1,000 ml @ 75 mls/hr [id number] IV 06/11/16 23:00 07/11/16 22:59 06/13/16 06:00 Verapamil HCl (Calan) 80 mg Q12HR ORAL 06/11/16 23:00 07/11/16 22:59 06/12/16 22:00 Allergies: Coded Allergies: ERYTHROMYCIN BASE (Verified Allergy, Intermediate, 06/11/16) CODEINE (Verified Allergy, Unknown, 06/11/16) MEPERIDINE (Verified Allergy, Unknown, 06/11/16) PENICILLINS (Verified Allergy, Unknown, 06/11/16) ROS Limited/Unobtainable: No Constitutional: Reports: no symptoms HEENT: Reports: no symptoms Cardiovascular: Reports: no symptoms Respiratory: Reports: no symptoms Gastrointestinal/Abdominal: Reports: no symptoms Genitourinary: Reports: no symptoms Neurologic/Psychiatric: Reports: no symptoms Subjective 75 YO F admitted with altered mental status. Now Urinary tract infection. C/O nausea and vomiting. Cover for Int Med-Dr Echevarria. Objective Last Vital Signs Date Time Temp Pulse Resp B/P Pulse Ox O2 Delivery O2 Flow Rate FiO2 06/13/16 16:00 97.7 67 20 105/62 98 Nasal Cannula 2.0 06/12/16 20:00 99 Laboratory Tests Test 06/13/16 04:00 White Blood Count 16.1 K/UL (4.8-10.8) H Red Blood Count 4.00 M/UL (4.20-5.40) L Hemoglobin 11.1 G/DL (12.0-16.0) L Hematocrit 33.5 % (37.0-47.0) L Mean Corpuscular Volume 84 FL (80-99) Mean Corpuscular Hemoglobin 27.8 PG (27.0-31.0) Mean Corpuscular Hemoglobin Concent 33.2 G/DL (32.0-36.0) Red Cell Distribution Width 13.4 % (11.6-14.8) Platelet Count 116 K/UL (150-450) L Mean Platelet Volume 7.3 FL (6.5-10.1) Neutrophils (%) (Auto) 81.1 % (45.0-75.0) H Lymphocytes (%) (Auto) 10.7 % (20.0-45.0) L Monocytes (%) (Auto) 6.6 % (1.0-10.0) Eosinophils (%) (Auto) 0.7 % (0.0-3.0) Basophils (%) (Auto) 0.9 % (0.0-2.0) Sodium Level 139 mEQ/L (135-145) Potassium Level 3.9 mEQ/L (3.4-4.9) Chloride Level 100 mEQ/L (98-107) Carbon Dioxide Level 27 mEQ/L (20-30) Anion Gap 12 (5-15) Blood Urea Nitrogen 24 mg/dL (7-23) H Creatinine 0.9 mg/dL (0.5-0.9) Estimat Glomerular Filtration Rate mL/min (>60) Glucose Level 137 mg/dL (74-106) H Calcium Level 8.7 mg/dL (8.6-10.2) Total Bilirubin 1.6 mg/dL (0.0-1.2) H Direct Bilirubin 0.6 mg/dL (0.1-0.3) H Aspartate Amino Transf (AST/SGOT) 160 U/L (5-40) H Alanine Aminotransferase (ALT/SGPT) 146 U/L (3-33) H Alkaline Phosphatase 83 U/L (35-104) Total Protein 6.0 g/dL (6.6-8.7) L Albumin 2.8 g/dL (3.5-5.2) L Random Amikacin Level 7.6 ug/mL Microbiology Date/Time Source Procedure Growth Status 06/11/16 14:45 Blood Blood Culture - Preliminary NO GROWTH AFTER 24 HOURS Resulted 06/11/16 14:30 Blood Blood Culture - Preliminary NO GROWTH AFTER 24 HOURS Resulted 06/11/16 16:00 Nasal Nares MRSA Culture - Final NO METHICILLIN RESISTANT STAPH AUREUS... Complete 06/11/16 14:30 Urine,Clean Catch Urine Culture - Final Escherichia Coli - Esbl Complete 06/11/16 16:00 Rectum VRE Culture - Final Enterococcus Faecalis - Vre Complete Intake and Output 06/12/16 06/13/16 19:00 07:00 Intake Total 1165 ml 525 ml Output Total 450 ml 600 ml Balance 715 ml -75 ml Intake Oral 640 ml IV Total 525 ml 525 ml Output Urine Total 450 ml 600 ml Objective General Appearance: WD/WN, moderate distress, obese EENT: PERRL/EOMI, normal ENT inspection Neck: non-tender, normal alignment, supple Cardiovascular: normal peripheral pulses, normal rate, regular rhythm, no gallop/murmur, no JVD Respiratory/Chest: chest wall non-tender, lungs clear, normal breath sounds, no respiratory distress, no accessory muscle use Abdomen: no organomegaly, no mass, decreased bowel sounds, guarding, tender Extremities: normal range of motion 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 (2) Renal failure Assessment & Plan: Pre renal. ?dehydration? Cont IV fluids. (3) Sick sinus syndrome Assessment & Plan: S/P pacemaker - normal interrogation. See cardiology note. (4) UTI (urinary tract infection) Assessment & Plan: ESBL E. Coli. D/C cefepime. Continue flagyl and amikacin per ID. (5) Altered mental status Assessment & Plan: Due to UTI. (6) Toxic metabolic encephalopathy (7) Pacemaker (8) Sepsis Assessment & Plan: See ID note. (9) Hypertension Assessment & Plan: Cont verapamil. (10) COPD (chronic obstructive pulmonary disease) (11) Hypercholesterolemia (12) Dysphagia (13) Leukocytosis (14) Nausea & vomiting Assessment & Plan: Start zofran. Status: not improved WILDER VÁZQUEZ Jun 13, 2016 17:35
[2016-06-13] MEDS: Xarelto 15mg tab ORAL SCH (18:21)
[2016-06-13 20:00] VITALS: BP 106/45
--- NOTE | 2016-06-13 23:18 | Consultation ---
DATE OF CONSULTATION: The patient has also conversation. There is no need for treatment. We will continue isolation of if possible. Carlos Woody M.D. DR: Odell JOB#: [id number] CC:
[2016-06-14] VITALS: BP 118/61
--- NOTE | 2016-06-14 02:28 | Consultation ---
DATE OF CONSULTATION: INFECTIOUS DISEASE CONSULTATION ATTENDING PHYSICIAN: Zion Echevarria M.D. REASON FOR CONSULTATION: E. coli, ESBL, UTI, sepsis, and liver cirrhosis. CHIEF COMPLAINT: The patient's chief complaint coming in the hospital with alerted level of consciousness. HISTORY OF PRESENT ILLNESS: This is a 75-year-old female, who comes in to [facility] with altered mental status. The patient was noted to have significant elevated white count likely aseptic. The patient's workup shows that she has ESBL E. coli UTI with sepsis. Infectious consultation was requested for further antibiotic management. The patient also had elevated lactic level, which was consistent with sepsis syndrome. When I saw the patient yesterday, the patient was placed on antibiotics including amikacin, Flagyl and cefepime. Today, the culture came back to be ESBL E. coli. sensitive to amikacin. She has allergy to penicillins. The patient will continue amikacin and Flagyl. She has a risk for C. diff. MAR was noted. Orders were noted. Notes were reviewed. Case was discussed with Dr. Echevarria. She has a Mondragon that will be removed. PAST MEDICAL HISTORY: Obtained from the records: The patient has a past medical history as following: The patient has a past medical history of sick sinus syndrome, history of pacemaker, history of dyslipidemia, history of hypertension, history of COPD, asthma, dysphagia, history of UTI, history of pyelonephritis, history of enterococcus and history of diabetes. She has a Mondragon. She came in with elevated creatinine, but now it is normalized. She has anemia. She has a history of dementia, CHF, cardiac disease, and asthma. Please put past medical history in medical order. MEDICATIONS: Upon reviewing the MAR, the patient is on the following medications. The patient is on Zofran, amikacin, and Flagyl. I will discontinue cefepime she was on. She is on Xarelto, and Protonix. She is on Tylenol, NovoLog insulin, and IV fluids. She is on Colace, Tylenol, and Advil. Please see medications in medical order and past medical history in medical order. ALLERGIES: Include codeine, erythromycin, meperidine, and penicillin. FAMILY HISTORY: Noncontributory. Negative exposure to tuberculosis or cancer. SOCIAL HISTORY: Negative for smoking, alcohol, or drug abuse. She is a long term resident. REVIEW OF SYSTEMS: Constitutional: No central line. She has a Mondragon. She came in with altered mental status. She is more alert now. She has fevers low grade. Head And Neck: No head pain or neck pain. No thrush or dysphagia. Cardiac: No chest pain. GI: No nausea, vomiting, or diarrhea. No pressors. : She has a Mondragon. Pulmonary: No significant shortness of breath or congestion. Skin: No rash or itching. Extremities: No extremity pain. Neurologic: No seizures. She has generalized weakness and fatigue. No weight loss. PHYSICAL EXAMINATION: VITAL SIGNS: The patient's temperature 100.0 degrees, pulse rate 80, respiratory rate 18, blood pressure 106/63, and saturation 99%. Pulse rate is as high as 125. Temperature is as high as 103.3 degrees. GENERAL: Alert and responsive, in no acute distress. HEENT: Head and Neck: Oral exam, no thrush. Eye exam, no icterus. Neck is supple. No JVD. No sinus tenderness. Normocephalic. No facial droop. No neck stiffness. HEART: Regular. No gallop or murmur. No friction or rub. LUNGS: Clear. Bilateral rhonchi and rales. ABDOMEN: Soft. Positive bowel sounds. SKIN: No rash or dermatitis. MUSCULOSKELETAL: No effusions or contractures. Lower extremities without cellulitis. PERIPHERAL VASCULAR: No cyanosis or gangrene. RECTAL: Deferred. GENITOURINARY: She has a Mondragon. Urine is cloudy. LINES: Line sites are without phlebitis. NEUROLOGIC: Generalized weakness. Responsive. I reviewed her wound. There is a small wound on the sacral area that looks clean and it is not infected in sacral areas. LABORATORY AND DIAGNOSTIC DATA: Laboratory as follows, white count is as high as 20.6, and hemoglobin 12.0. Now, white count today is 16.1, and hemoglobin 11.1. The patient's creatinine is normal was 1.2. Urinalysis had 1+ leukocyte esterase, 5 to 10 white blood cells, C. diff was ordered. It is pending. VRE screen is positive. Blood cultures are negative. Urine culture, ESBL E. Coli. Sensitive to amikacin, ertapenem, imipenem, Zosyn and Tygacil and also nitrofurantoin. IMAGING STUDIES: Chest x-ray was done, which showed pulmonary vascular congestion. No CHF. ASSESSMENT AND PLAN: 1. The patient has Extended-Spectrum beta- Lactamase, Escherichia Coli, urinary tract infection with sepsis and liver cirrhosis possible . She has fevers. She likely has pyelonephritis. She is on day #2 amikacin. She penicillin. Continue amikacin and Flagyl since discharge diarrhea. Watch creatinine closely. She will need around approximately 10 day course of amikacin. 10. Continue antibiotics. She will follow up as needed. Watch creatinine closely. Check C. diff as well as diarrhea. Continue Flagyl for now. 2. The patient has history of sick sinus syndrome. 3. Dyslipidemia. 4. Hypertension. 5. Diabetes. 6. Chronic obstructive pulmonary disease. 7. Asthma. 8. Dysphagia. 9. History of urinary tract infection. 10. Elevated creatinine improved. 11. Anemia. 12. Continue treatment for diabetes and hypertension, per primary. 13. Dementia. 14. Dehydration. 15. Pacemaker. 16. 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 17. Allergy to codeine, erythromycin, meperidine, and penicillin. 18. Family history is noncontributory. 19. Social history is negative. 20. . 21. MAR was noted. 22. Case was discussed with RN. 23. Case was discussed with patient. 24. Case was discussed with Dr. Echevarria. 25. Wound care protocol. Carlos Woody M.D. DR: PABLO JOB#: [id number] CC:
[2016-06-14 04:00] VITALS: BP 132/71
[2016-06-14] MEDS: Amikacin 1,000 MG in D5W 110 ML IV SCH (04:30)
[2016-06-14] MEDS: metroNIDAZOLE 500mg tab ORAL SCH ×3 (06:00→21:19)
[2016-06-14] MEDS: NovoLOG Insulin Flexpen SUBQ SCH ×4 (06:17→21:18)
[2016-06-14 08:00] VITALS: BP 140/60
[2016-06-14] MEDS: Verapamil 80mg tab ORAL SCH ×2 (09:11→21:16)
[2016-06-14] MEDS: Docusate 100mg cap ORAL SCH ×2 (09:11→21:16)
[2016-06-14 09:56] LABS: BASOPHILS % (AUTO) 0.7 % (0.0-2.0); EOSINOPHILS % (AUTO) 1.2 % (0.0-3.0); LYMPHOCYTES % (AUTO) 15.1 % (20.0-45.0); MEAN CORPUSCULAR HEMOGLOBIN 27.5 PG (27.0-31.0); MEAN CORPUSCULAR HGB CONC 32.4 G/DL (32.0-36.0); MEAN CORPUSCULAR VOLUME 85 FL (80-99); MEAN PLATELET VOLUME 7.6 FL (6.5-10.1); MONOCYTES % (AUTO) 9.9 % (1.0-10.0); NEUTROPHILS % (AUTO) 73.2 % (45.0-75.0); PLATELET COUNT 105 K/UL (150-450); RED BLOOD COUNT 3.75 M/UL (4.20-5.40); RED CELL DISTRIBUTION WIDTH 13.6 % (11.6-14.8); WHITE BLOOD COUNT 7.7 K/UL (4.8-10.8)
[2016-06-14 10:00] LABS: ALANINE AMINOTRANSFERASE 126 U/L (3-33); ALBUMIN/GLOBULIN RATIO 0.9 (1.0-2.7); ANION GAP 12 (5-15); ASPARTATE AMINO TRANSFERASE 145 U/L (5-40); CALCIUM 8.5 mg/dL (8.6-10.2); CARBON DIOXIDE 26 mEQ/L (20-30); CHLORIDE 99 mEQ/L (98-107); CREATININE 0.6 mg/dL (0.5-0.9); HEMOLYSIS 3; INR 1.2 (0.9-1.1); MAGNESIUM 1.4 mg/dL (1.7-2.5); PHOSPHORUS 2.6 mg/dL (2.5-4.8); POTASSIUM 3.5 mEQ/L (3.4-4.9); PROTHROMBIN TIME 12.2 SEC (9.30-11.50); SODIUM 137 mEQ/L (135-145); TOTAL PROTEIN 5.7 g/dL (6.6-8.7)
[2016-06-14 11:07] LABS: BILIRUBIN,DIRECT 0.5 mg/dL (0.1-0.3)
[2016-06-14 12:00] VITALS: BP 111/59
[2016-06-14] MEDS ORDERED: DuoNeb 0.5-3(2.5)mg/3ml neb HHN SCH (12:30)
[2016-06-14] MEDS ORDERED: Furosemide 40mg tab ORAL SCH (12:30)
[2016-06-14] MEDS ORDERED: HydrALAZINE 10mg Tab ORAL SCH (12:30)
[2016-06-14] MEDS ORDERED: Memantine 10mg tab ORAL SCH (12:30)
[2016-06-14] MEDS ORDERED: Verapamil SR 240mg tab ORAL SCH (12:30)
[2016-06-14] MEDS ORDERED: Spironolactone 25mg tab ORAL SCH (12:30)
[2016-06-14] MEDS ORDERED: KCl 10% 20 mEq/15ml liquid ORAL SCH (12:30)
[2016-06-14] MEDS ORDERED: Montelukast 10mg tablet ORAL SCH (12:30)
[2016-06-14] MEDS ORDERED: Acetaminophen 650 MG SUPP RECTAL PRN (12:45)
[2016-06-14] MEDS ORDERED: Amikacin Rx to dose MISC PRN (13:00)
[2016-06-14 16:00] VITALS: BP 111/68
[2016-06-14] MEDS ORDERED: Tubing IV Secondary IV ONE (16:37)
[2016-06-14] MEDS ORDERED: NS 275ml ONE (16:37)
--- NOTE | 2016-06-14 16:40 | Pulmonology Progress Note ---
Subjective Allergies: Coded Allergies: ERYTHROMYCIN BASE (Verified Allergy, Intermediate, 06/11/16) CODEINE (Verified Allergy, Unknown, 06/11/16) MEPERIDINE (Verified Allergy, Unknown, 06/11/16) PENICILLINS (Verified Allergy, Unknown, 06/11/16) Objective Last 24 Hour Vital Signs Date Time Temp Pulse Resp B/P Pulse Ox O2 Delivery O2 Flow Rate FiO2 06/14/16 12:00 97.8 69 17 111/59 100 Nasal Cannula 06/14/16 09:11 69 132/71 06/14/16 08:00 97.9 78 18 140/60 96 Nasal Cannula 2.0 06/14/16 04:00 98.8 69 20 132/71 92 Nasal Cannula 2.0 06/14/16 00:00 99.3 73 20 118/61 98 Nasal Cannula 2.0 06/13/16 21:00 106/45 06/13/16 20:00 98.1 76 20 106/45 96 Nasal Cannula 2.0 Intake and Output 06/13/16 06/14/16 19:00 07:00 Intake Total 1215 ml 1235 ml Output Total 475 ml Balance 740 ml 1235 ml Intake Oral 240 ml 300 ml IV Total 975 ml 935 ml Output Urine Total 475 ml # Voids 4 # Bowel Movements 1 2 Laboratory Tests 06/14/16 04:50: White Blood Count 7.7#, Red Blood Count 3.75L, Hemoglobin 10.3L, Hematocrit 31.8L, Mean Corpuscular Volume 85, Mean Corpuscular Hemoglobin 27.5, Mean Corpuscular Hemoglobin Concent 32.4, Red Cell Distribution Width 13.6, Platelet Count 105L, Mean Platelet Volume 7.6, Neutrophils (%) (Auto) 73.2, Lymphocytes ( %) (Auto) 15.1L, Monocytes (%) (Auto) 9.9, Eosinophils (%) (Auto) 1.2, Basophils (%) (Auto) 0.7, Prothrombin Time 12.2H, Prothromb Time International Ratio 1.2H, Activated Partial Thromboplast Time 35H, Sodium Level 137, Potassium Level 3.5, Chloride Level 99, Carbon Dioxide Level 26, Anion Gap 12, Blood Urea Nitrogen 15, Creatinine 0.6, Estimat Glomerular Filtration Rate , Glucose Level 233H, Calcium Level 8.5L, Phosphorus Level 2.6, Magnesium Level 1.4L, Total Bilirubin 1.2, Direct Bilirubin 0.5H, Aspartate Amino Transf (AST/ SGOT) 145H, Alanine Aminotransferase (ALT/SGPT) 126H, Alkaline Phosphatase 72, Total Protein 5.7L, Albumin 2.7L, Globulin 3.0, Albumin/Globulin Ratio 0.9L Current Medications Medications (Trade) Dose Ordered Sig/Joann Route PRN Reason Start Time Stop Time Status Last Admin Dose Admin Acetaminophen (Tylenol) 650 mg Q4H PRN ORAL Mild Pain / TEMP>101 06/14/16 12:30 07/14/16 12:29 Acetaminophen (Tylenol) 650 mg Q4H PRN RECTAL Mild Pain/Temp > 100.5 06/14/16 12:45 07/14/16 12:44 Amikacin Protocol (Amikacin pharmacy to dose) 1 ea DAILY PRN MISC Per rx protocol 06/14/16 13:00 07/14/16 12:59 Amikacin Sulfate 1000 mg/Dextrose 114 ml @ 228 mls/hr Q36H IV 06/15/16 16:00 06/22/16 15:59 Atorvastatin Calcium (Lipitor) 10 mg BEDTIME ORAL 06/14/16 21:00 07/14/16 20:59 Dextrose (Dextrose 50%) STAT PRN IV Hypoglycemia 06/14/16 13:00 07/14/16 12:59 Docusate Sodium (Colace) 100 mg EVERY 12 HOURS ORAL 06/14/16 21:00 07/14/16 20:59 Ibuprofen (Advil) 200 mg Q4H PRN ORAL Mild Pain (Pain Scale 1-3) 06/14/16 14:45 07/14/16 14:44 Insulin Aspart (NovoLOG) BEFORE MEALS AND HS SUBQ 06/14/16 13:00 07/14/16 12:59 06/14/16 13:01 Metronidazole (Flagyl) 500 mg EVERY 8 HOURS ORAL 06/14/16 14:00 06/21/16 13:59 06/14/16 13:41 Ondansetron HCl (Zofran) 4 mg Q4H PRN IVP Nausea & Vomiting 06/14/16 12:45 07/14/16 12:44 Pantoprazole (Protonix) 40 mg DAILY ORAL 06/15/16 09:00 07/15/16 08:59 Rivaroxaban (Xarelto) 15 mg QPM ORAL 06/14/16 16:30 07/14/16 16:29 Sodium Chloride (Sodium Chloride 1000ml bag) 1,000 ml @ 75 mls/hr [id number] IV 06/14/16 12:45 07/14/16 12:44 06/14/16 13:42 Verapamil HCl (Calan) 80 mg Q12HR ORAL 06/14/16 21:00 07/14/16 20:59 Satya ([facility])Margo NP Jun 14, 2016 16:40
--- NOTE | 2016-06-14 16:51 | Internal Med Progress Note ---
Subjective Date of Service: Jun 14, 2016 Physician Name Chema Vzáquez Attending Physician Zion Echevarria MD Current Medications Medications (Trade) Dose Ordered Sig/Joann Route PRN Reason Start Time Stop Time Status Last Admin Dose Admin Acetaminophen (Tylenol) 650 mg Q4H PRN ORAL Mild Pain / TEMP>101 06/14/16 12:30 07/14/16 12:29 Acetaminophen (Tylenol) 650 mg Q4H PRN RECTAL Mild Pain/Temp > 100.5 06/14/16 12:45 07/14/16 12:44 Amikacin Protocol (Amikacin pharmacy to dose) 1 ea DAILY PRN MISC Per rx protocol 06/14/16 13:00 07/14/16 12:59 Amikacin Sulfate 1000 mg/Dextrose 114 ml @ 228 mls/hr Q36H IV 06/15/16 16:00 06/22/16 15:59 Atorvastatin Calcium (Lipitor) 10 mg BEDTIME ORAL 06/14/16 21:00 07/14/16 20:59 Dextrose (Dextrose 50%) STAT PRN IV Hypoglycemia 06/14/16 13:00 07/14/16 12:59 Docusate Sodium (Colace) 100 mg EVERY 12 HOURS ORAL 06/14/16 21:00 07/14/16 20:59 Ibuprofen (Advil) 200 mg Q4H PRN ORAL Mild Pain (Pain Scale 1-3) 06/14/16 14:45 07/14/16 14:44 Insulin Aspart (NovoLOG) BEFORE MEALS AND HS SUBQ 06/14/16 13:00 07/14/16 12:59 06/14/16 13:01 Metronidazole (Flagyl) 500 mg EVERY 8 HOURS ORAL 06/14/16 14:00 06/21/16 13:59 06/14/16 13:41 Ondansetron HCl (Zofran) 4 mg Q4H PRN IVP Nausea & Vomiting 06/14/16 12:45 07/14/16 12:44 Pantoprazole (Protonix) 40 mg DAILY ORAL 06/15/16 09:00 07/15/16 08:59 Rivaroxaban (Xarelto) 15 mg QPM ORAL 06/14/16 16:30 07/14/16 16:29 Sodium Chloride (Sodium Chloride 1000ml bag) 1,000 ml @ 75 mls/hr [id number] IV 06/14/16 12:45 07/14/16 12:44 06/14/16 13:42 Verapamil HCl (Calan) 80 mg Q12HR ORAL 06/14/16 21:00 07/14/16 20:59 Allergies: Coded Allergies: ERYTHROMYCIN BASE (Verified Allergy, Intermediate, 06/11/16) CODEINE (Verified Allergy, Unknown, 06/11/16) MEPERIDINE (Verified Allergy, Unknown, 06/11/16) PENICILLINS (Verified Allergy, Unknown, 06/11/16) ROS Limited/Unobtainable: No Constitutional: Reports: no symptoms HEENT: Reports: no symptoms Cardiovascular: Reports: no symptoms Respiratory: Reports: no symptoms Gastrointestinal/Abdominal: Reports: no symptoms Genitourinary: Reports: no symptoms Neurologic/Psychiatric: Reports: no symptoms Subjective 75 YO F admitted with altered mental status. Now Urinary tract infection. C/O nausea and vomiting. Cover for Int Ryan-Dr Echevarria. Objective Last Vital Signs Date Time Temp Pulse Resp B/P Pulse Ox O2 Delivery O2 Flow Rate FiO2 06/14/16 12:00 97.8 69 17 111/59 100 Nasal Cannula 06/14/16 08:00 2.0 06/12/16 20:00 99 Laboratory Tests Test 06/14/16 04:50 White Blood Count 7.7 K/UL (4.8-10.8) # Red Blood Count 3.75 M/UL (4.20-5.40) L Hemoglobin 10.3 G/DL (12.0-16.0) L Hematocrit 31.8 % (37.0-47.0) L Mean Corpuscular Volume 85 FL (80-99) Mean Corpuscular Hemoglobin 27.5 PG (27.0-31.0) Mean Corpuscular Hemoglobin Concent 32.4 G/DL (32.0-36.0) Red Cell Distribution Width 13.6 % (11.6-14.8) Platelet Count 105 K/UL (150-450) L Mean Platelet Volume 7.6 FL (6.5-10.1) Neutrophils (%) (Auto) 73.2 % (45.0-75.0) Lymphocytes (%) (Auto) 15.1 % (20.0-45.0) L Monocytes (%) (Auto) 9.9 % (1.0-10.0) Eosinophils (%) (Auto) 1.2 % (0.0-3.0) Basophils (%) (Auto) 0.7 % (0.0-2.0) Prothrombin Time 12.2 SEC (9.30-11.50) H Prothromb Time International Ratio 1.2 (0.9-1.1) H Activated Partial Thromboplast Time 35 SEC (23-33) H Sodium Level 137 mEQ/L (135-145) Potassium Level 3.5 mEQ/L (3.4-4.9) Chloride Level 99 mEQ/L (98-107) Carbon Dioxide Level 26 mEQ/L (20-30) Anion Gap 12 (5-15) Blood Urea Nitrogen 15 mg/dL (7-23) Creatinine 0.6 mg/dL (0.5-0.9) Estimat Glomerular Filtration Rate mL/min (>60) Glucose Level 233 mg/dL (74-106) H Calcium Level 8.5 mg/dL (8.6-10.2) L Phosphorus Level 2.6 mg/dL (2.5-4.8) Magnesium Level 1.4 mg/dL (1.7-2.5) L Total Bilirubin 1.2 mg/dL (0.0-1.2) Direct Bilirubin 0.5 mg/dL (0.1-0.3) H Aspartate Amino Transf (AST/SGOT) 145 U/L (5-40) H Alanine Aminotransferase (ALT/SGPT) 126 U/L (3-33) H Alkaline Phosphatase 72 U/L (35-104) Total Protein 5.7 g/dL (6.6-8.7) L Albumin 2.7 g/dL (3.5-5.2) L Globulin 3.0 g/dL Albumin/Globulin Ratio 0.9 (1.0-2.7) L Intake and Output 06/13/16 06/14/16 19:00 07:00 Intake Total 1215 ml 1235 ml Output Total 475 ml Balance 740 ml 1235 ml Intake Oral 240 ml 300 ml IV Total 975 ml 935 ml Output Urine Total 475 ml # Voids 4 # Bowel Movements 1 2 Objective General Appearance: WD/WN, moderate distress, obese EENT: PERRL/EOMI, normal ENT inspection Neck: non-tender, normal alignment, supple Cardiovascular: normal peripheral pulses, normal rate, regular rhythm, no gallop/murmur, no JVD Respiratory/Chest: chest wall non-tender, lungs clear, normal breath sounds, no respiratory distress, no accessory muscle use Abdomen: no organomegaly, no mass, decreased bowel sounds, guarding, tender Extremities: normal range of motion Neurologic: language assistant II-XII grossly normal, no motor/sensory deficits Skin: normal pigmentation, warm/dry Assessment/Plan Problem List: (1) DVT (deep venous thrombosis) Assessment & Plan: Cont xarelto. (2) Renal failure Assessment & Plan: Pre renal. ?dehydration? Cont IV fluids. (3) Sick sinus syndrome Assessment & Plan: S/P pacemaker - normal interrogation. See cardiology note. (4) UTI (urinary tract infection) Assessment & Plan: ESBL E. Coli. D/C cefepime. Continue flagyl and amikacin per ID. (5) Altered mental status Assessment & Plan: Due to UTI. (6) Toxic metabolic encephalopathy (7) Pacemaker (8) Sepsis Assessment & Plan: See ID note. (9) Hypertension Assessment & Plan: Cont verapamil. (10) COPD (chronic obstructive pulmonary disease) (11) Hypercholesterolemia (12) Dysphagia (13) Leukocytosis (14) Nausea & vomiting Assessment & Plan: Start zofran. (15) Pancreatitis, acute Assessment & Plan: Await MRCP. Await GI consult. Dr Roper contacted earlier in week; Dr Massey notified. (16) Elevated liver function tests Status: not improved CHEMA VÁZQUEZ Jun 14, 2016 16:51
[2016-06-14] MEDS: Xarelto 15mg tab ORAL SCH (17:00)
--- NOTE | 2016-06-14 19:10 | Pulmonology Progress Note ---
Assessment/Plan Assessment/Plan ASSESSMENT acute metabolic encephalopathy ( due to sepsis) sepsis UTI COPD pacemaker HTN moderate pulmonary HTN acute DVT BLE hyperlipidemia DM functional quadriplegia sacral decub st 4, present on admission PLAN OF CARE [facility] floor IVF abx, ID follows urine cx + E coli ESBL, blood cx preliminary negative ECHO with EF 50-55% and RVSP of 50 c/w moderate pulmonary HTN , moderate LVH, midl pacemaker interrogation done, functioning properly BP management with CCB and optimize as needed continue Xarelto, no evidcne of bleeding BS management with SS of insulin, HgA1c -5.5 swallow eval GI prophylaxis lipid panel noted, no statin due to elevated LFT, small trend down wound care as per wound nurse recommendations case discussed and evaluated by supervising physician Subjective Allergies: Coded Allergies: ERYTHROMYCIN BASE (Verified Allergy, Intermediate, 06/11/16) CODEINE (Verified Allergy, Unknown, 06/11/16) MEPERIDINE (Verified Allergy, Unknown, 06/11/16) PENICILLINS (Verified Allergy, Unknown, 06/11/16) Subjective leukocytosis resolved, afebrile on O2 via NC sat stable, no sign of respiratory distress Objective Last 24 Hour Vital Signs Date Time Temp Pulse Resp B/P Pulse Ox O2 Delivery O2 Flow Rate FiO2 06/14/16 16:00 97.9 61 19 111/68 100 Nasal Cannula 2.0 06/14/16 12:00 97.8 69 17 111/59 100 Nasal Cannula 06/14/16 09:11 69 132/71 06/14/16 08:00 97.9 78 18 140/60 96 Nasal Cannula 2.0 06/14/16 04:00 98.8 69 20 132/71 92 Nasal Cannula 2.0 06/14/16 00:00 99.3 73 20 118/61 98 Nasal Cannula 2.0 06/13/16 21:00 106/45 06/13/16 20:00 98.1 76 20 106/45 96 Nasal Cannula 2.0 Intake and Output 06/13/16 06/14/16 19:00 07:00 Intake Total 1215 ml 1235 ml Output Total 475 ml Balance 740 ml 1235 ml Intake Oral 240 ml 300 ml IV Total 975 ml 935 ml Output Urine Total 475 ml # Voids 4 # Bowel Movements 1 2 Objective General Appearance: WD/WN, in NAD, obese female EENT: EOMI, sclera anicteric Neck: non-tender, normal alignment, supple Cardiovascular: normal peripheral pulses, normal rate, regular rhythm, no gallop/murmur, no JVD Respiratory/Chest: chest wall non-tender, lungs clear, normal breath sounds, no respiratory distress, no accessory muscle use Abdomen: no organomegaly, no mass, decreased bowel sounds, soft, obese Extremities: moves al extremities Skin: sacral decub st 4, POA Laboratory Tests 06/14/16 04:50: White Blood Count 7.7#, Red Blood Count 3.75L, Hemoglobin 10.3L, Hematocrit 31.8L, Mean Corpuscular Volume 85, Mean Corpuscular Hemoglobin 27.5, Mean Corpuscular Hemoglobin Concent 32.4, Red Cell Distribution Width 13.6, Platelet Count 105L, Mean Platelet Volume 7.6, Neutrophils (%) (Auto) 73.2, Lymphocytes ( %) (Auto) 15.1L, Monocytes (%) (Auto) 9.9, Eosinophils (%) (Auto) 1.2, Basophils (%) (Auto) 0.7, Prothrombin Time 12.2H, Prothromb Time International Ratio 1.2H, Activated Partial Thromboplast Time 35H, Sodium Level 137, Potassium Level 3.5, Chloride Level 99, Carbon Dioxide Level 26, Anion Gap 12, Blood Urea Nitrogen 15, Creatinine 0.6, Estimat Glomerular Filtration Rate , Glucose Level 233H, Calcium Level 8.5L, Phosphorus Level 2.6, Magnesium Level 1.4L, Total Bilirubin 1.2, Direct Bilirubin 0.5H, Aspartate Amino Transf (AST/ SGOT) 145H, Alanine Aminotransferase (ALT/SGPT) 126H, Alkaline Phosphatase 72, Total Protein 5.7L, Albumin 2.7L, Globulin 3.0, Albumin/Globulin Ratio 0.9L Current Medications Medications (Trade) Dose Ordered Sig/Joann Route PRN Reason Start Time Stop Time Status Last Admin Dose Admin Acetaminophen (Tylenol) 650 mg Q4H PRN ORAL Mild Pain / TEMP>101 06/14/16 12:30 07/14/16 12:29 Acetaminophen (Tylenol) 650 mg Q4H PRN RECTAL Mild Pain/Temp > 100.5 06/14/16 12:45 07/14/16 12:44 Amikacin Protocol (Amikacin pharmacy to dose) 1 ea DAILY PRN MISC Per rx protocol 06/14/16 13:00 07/14/16 12:59 Amikacin Sulfate 1000 mg/Dextrose 114 ml @ 228 mls/hr Q36H IV 06/15/16 16:00 06/22/16 15:59 Atorvastatin Calcium (Lipitor) 10 mg BEDTIME ORAL 06/14/16 21:00 07/14/16 20:59 Dextrose (Dextrose 50%) STAT PRN IV Hypoglycemia 06/14/16 13:00 07/14/16 12:59 Docusate Sodium (Colace) 100 mg EVERY 12 HOURS ORAL 06/14/16 21:00 07/14/16 20:59 Ibuprofen (Advil) 200 mg Q4H PRN ORAL Mild Pain (Pain Scale 1-3) 06/14/16 14:45 07/14/16 14:44 Insulin Aspart (NovoLOG) BEFORE MEALS AND HS SUBQ 06/14/16 13:00 07/14/16 12:59 06/14/16 17:53 Metronidazole (Flagyl) 500 mg EVERY 8 HOURS ORAL 06/14/16 14:00 06/21/16 13:59 06/14/16 13:41 Ondansetron HCl (Zofran) 4 mg Q4H PRN IVP Nausea & Vomiting 06/14/16 12:45 07/14/16 12:44 Pantoprazole (Protonix) 40 mg DAILY ORAL 06/15/16 09:00 07/15/16 08:59 Rivaroxaban (Xarelto) 15 mg QPM ORAL 06/14/16 16:30 07/14/16 16:29 06/14/16 17:00 Sodium Chloride (Sodium Chloride 1000ml bag) 1,000 ml @ 75 mls/hr [id number] IV 06/14/16 12:45 07/14/16 12:44 06/14/16 13:42 Verapamil HCl (Calan) 80 mg Q12HR ORAL 06/14/16 21:00 07/14/16 20:59 Satya (John)Margo NP Jun 14, 2016 19:10
[2016-06-14] MEDS ORDERED: DuoNeb 0.5-3(2.5)mg/3ml neb HHN PRN (19:15)
[2016-06-14 20:00] VITALS: BP 126/73
--- NOTE | 2016-06-14 20:00 | Cardiac Electrophysiology PN ---
Assessment/Plan Assessment/Plan 1. Status post [employer] pacemaker. Interrogation showed normal function. 2. Hypertension. Stable on Verapamil 80 bid. 3. CHF with EF 40% by prior echo. Now 50-55% by echo 4. Bilateral acute lower extremity deep venous thrombosis, on Xarelto 15 mg daily 5. Hyperlipidemia. On Lipitor 10 6. UTI sepsis DW RN Subjective Subjective Felling better.Denies any chest pain or SOB. RN at bedside. Objective Last 24 Hour Vital Signs Date Time Temp Pulse Resp B/P Pulse Ox O2 Delivery O2 Flow Rate FiO2 06/14/16 16:00 97.9 61 19 111/68 100 Nasal Cannula 2.0 06/14/16 12:00 97.8 69 17 111/59 100 Nasal Cannula 06/14/16 09:11 69 132/71 06/14/16 08:00 97.9 78 18 140/60 96 Nasal Cannula 2.0 06/14/16 04:00 98.8 69 20 132/71 92 Nasal Cannula 2.0 06/14/16 00:00 99.3 73 20 118/61 98 Nasal Cannula 2.0 06/13/16 21:00 106/45 06/13/16 20:00 98.1 76 20 106/45 96 Nasal Cannula 2.0 Intake and Output 06/13/16 06/14/16 19:00 07:00 Intake Total 1215 ml 1235 ml Output Total 475 ml Balance 740 ml 1235 ml Intake Oral 240 ml 300 ml IV Total 975 ml 935 ml Output Urine Total 475 ml # Voids 4 # Bowel Movements 1 2 Laboratory Tests Test 06/14/16 04:50 White Blood Count 7.7 K/UL (4.8-10.8) # Red Blood Count 3.75 M/UL (4.20-5.40) L Hemoglobin 10.3 G/DL (12.0-16.0) L Hematocrit 31.8 % (37.0-47.0) L Mean Corpuscular Volume 85 FL (80-99) Mean Corpuscular Hemoglobin 27.5 PG (27.0-31.0) Mean Corpuscular Hemoglobin Concent 32.4 G/DL (32.0-36.0) Red Cell Distribution Width 13.6 % (11.6-14.8) Platelet Count 105 K/UL (150-450) L Mean Platelet Volume 7.6 FL (6.5-10.1) Neutrophils (%) (Auto) 73.2 % (45.0-75.0) Lymphocytes (%) (Auto) 15.1 % (20.0-45.0) L Monocytes (%) (Auto) 9.9 % (1.0-10.0) Eosinophils (%) (Auto) 1.2 % (0.0-3.0) Basophils (%) (Auto) 0.7 % (0.0-2.0) Prothrombin Time 12.2 SEC (9.30-11.50) H Prothromb Time International Ratio 1.2 (0.9-1.1) H Activated Partial Thromboplast Time 35 SEC (23-33) H Sodium Level 137 mEQ/L (135-145) Potassium Level 3.5 mEQ/L (3.4-4.9) Chloride Level 99 mEQ/L (98-107) Carbon Dioxide Level 26 mEQ/L (20-30) Anion Gap 12 (5-15) Blood Urea Nitrogen 15 mg/dL (7-23) Creatinine 0.6 mg/dL (0.5-0.9) Estimat Glomerular Filtration Rate mL/min (>60) Glucose Level 233 mg/dL (74-106) H Calcium Level 8.5 mg/dL (8.6-10.2) L Phosphorus Level 2.6 mg/dL (2.5-4.8) Magnesium Level 1.4 mg/dL (1.7-2.5) L Total Bilirubin 1.2 mg/dL (0.0-1.2) Direct Bilirubin 0.5 mg/dL (0.1-0.3) H Aspartate Amino Transf (AST/SGOT) 145 U/L (5-40) H Alanine Aminotransferase (ALT/SGPT) 126 U/L (3-33) H Alkaline Phosphatase 72 U/L (35-104) Total Protein 5.7 g/dL (6.6-8.7) L Albumin 2.7 g/dL (3.5-5.2) L Globulin 3.0 g/dL Albumin/Globulin Ratio 0.9 (1.0-2.7) L Objective HEAD AND NECK: No JVD. LUNGS: Clear. CARDIOVASCULAR: Regular S1 and S2 with no gallop or murmur. The pacemaker is left subclavian. ABDOMEN: Soft, but obese. EXTREMITIES: 1+ pitting edema. JAMAAL LAWS Jun 14, 2016 20:00
[2016-06-15] VITALS (7 sets, daily range): BP systolic 108–148; BP diastolic 58–76
[2016-06-15] MEDS: metroNIDAZOLE 500mg tab ORAL SCH ×3 (06:27→21:15)
[2016-06-15] MEDS: NovoLOG Insulin Flexpen SUBQ SCH ×4 (06:27→21:16)
[2016-06-15 08:07] LABS: EOSINOPHILS % (AUTO) 1.6 % (0.0-3.0); LYMPHOCYTES % (AUTO) 22.4 % (20.0-45.0); MEAN CORPUSCULAR HEMOGLOBIN 27.2 PG (27.0-31.0); MEAN CORPUSCULAR HGB CONC 32.1 G/DL (32.0-36.0); MEAN CORPUSCULAR VOLUME 85 FL (80-99); MEAN PLATELET VOLUME 7.4 FL (6.5-10.1); PLATELET COUNT 127 K/UL (150-450); RED BLOOD COUNT 3.72 M/UL (4.20-5.40); RED CELL DISTRIBUTION WIDTH 13.1 % (11.6-14.8); WHITE BLOOD COUNT 6.6 K/UL (4.8-10.8)
[2016-06-15 08:24] LABS: ALANINE AMINOTRANSFERASE 125 U/L (3-33); ALBUMIN/GLOBULIN RATIO 0.8 (1.0-2.7); AMYLASE 91 U/L (10-110); ANION GAP 13 (5-15); ASPARTATE AMINO TRANSFERASE 151 U/L (5-40); CALCIUM 8.7 mg/dL (8.6-10.2); CARBON DIOXIDE 27 mEQ/L (20-30); CHLORIDE 100 mEQ/L (98-107); CREATININE 0.6 mg/dL (0.5-0.9); HEMOLYSIS 8; LIPASE 52 U/L (< 60); POTASSIUM 3.3 mEQ/L (3.4-4.9); SODIUM 140 mEQ/L (135-145); TOTAL PROTEIN 5.5 g/dL (6.6-8.7)
[2016-06-15 08:37] LABS: BILIRUBIN,DIRECT 0.5 mg/dL (0.1-0.3)
[2016-06-15] MEDS: Docusate 100mg cap ORAL SCH ×2 (09:35→21:15)
[2016-06-15] MEDS: Verapamil 80mg tab ORAL SCH ×2 (09:36→21:15)
--- NOTE | 2016-06-15 12:47 | Pulmonology Progress Note ---
Assessment/Plan Assessment/Plan ASSESSMENT acute metabolic encephalopathy ( due to sepsis) sepsis UTI COPD pacemaker HTN moderate pulmonary HTN acute DVT BLE hyperlipidemia DM functional quadriplegia sacral decub st 4, present on admission e/lyte imbalance : hypo K, hypo Mg PLAN OF CARE [facility] floor IVF abx, ID follows urine cx + E coli ESBL, blood cx preliminary negative ECHO with EF 50-55% and RVSP of 50 c/w moderate pulmonary HTN , moderate LVH, midl pacemaker interrogation done, functioning properly BP management with CCB and optimize as needed continue Xarelto, no evidcne of bleeding BS management with SS of insulin, HgA1c -5.5 swallow eval GI prophylaxis lipid panel noted, no statin due to elevated LFT with small trend down replace K and Mg. ccehck in am wound care as per wound nurse recommendations case discussed and evaluated by supervising physician Subjective Allergies: Coded Allergies: ERYTHROMYCIN BASE (Verified Allergy, Intermediate, 06/11/16) CODEINE (Verified Allergy, Unknown, 06/11/16) MEPERIDINE (Verified Allergy, Unknown, 06/11/16) PENICILLINS (Verified Allergy, Unknown, 06/11/16) Subjective leukocytosis resolved, afebrile on O2 via NC sat stable, no sign of respiratory distress K-3.3 ; Mg-1.4 later done ( added) Objective Last 24 Hour Vital Signs Date Time Temp Pulse Resp B/P Pulse Ox O2 Delivery O2 Flow Rate FiO2 06/15/16 12:15 98.0 67 19 134/76 95 Room Air 06/15/16 09:36 61 143/70 06/15/16 08:15 98.2 61 20 143/70 97 Room Air 06/15/16 04:00 98.1 61 18 144/66 100 Nasal Cannula 2.0 06/15/16 00:00 98.2 67 18 148/70 97 Nasal Cannula 2.0 06/14/16 22:33 66 18 Nasal Cannula 2.0 28 06/14/16 21:16 66 126/73 06/14/16 20:00 99.0 66 18 126/73 100 Nasal Cannula 2.0 06/14/16 16:00 97.9 61 19 111/68 100 Nasal Cannula 2.0 Intake and Output 06/14/16 06/15/16 19:00 07:00 Intake Total 500 ml 720 ml Balance 500 ml 720 ml Intake Oral 500 ml 720 ml # Voids 3 3 # Bowel Movements 1 Objective General Appearance: WD/WN, in NAD, obese female EENT: EOMI, sclera anicteric Neck: non-tender, normal alignment, supple Cardiovascular: normal peripheral pulses, normal rate, regular rhythm, no gallop/murmur, no JVD Respiratory/Chest: chest wall non-tender, lungs clear, normal breath sounds, no respiratory distress, no accessory muscle use Abdomen: no organomegaly, no mass, decreased bowel sounds, soft, obese Extremities: moves al extremities Skin: sacral decub st 4, POA Laboratory Tests 06/15/16 05:10: White Blood Count 6.6, Red Blood Count 3.72L, Hemoglobin 10.1L, Hematocrit 31.5L , Mean Corpuscular Volume 85, Mean Corpuscular Hemoglobin 27.2, Mean Corpuscular Hemoglobin Concent 32.1, Red Cell Distribution Width 13.1, Platelet Count 127L, Mean Platelet Volume 7.4, Neutrophils (%) (Auto) 65.0, Lymphocytes ( %) (Auto) 22.4, Monocytes (%) (Auto) 10.0, Eosinophils (%) (Auto) 1.6, Basophils (%) (Auto) 1.0, Sodium Level 140, Potassium Level 3.3L, Chloride Level 100, Carbon Dioxide Level 27, Anion Gap 13, Blood Urea Nitrogen 10, Creatinine 0.6, Estimat Glomerular Filtration Rate , Glucose Level 116#H, Calcium Level 8.7, Total Bilirubin 1.1, Direct Bilirubin 0.5H, Aspartate Amino Transf (AST/SGOT) 151H, Alanine Aminotransferase (ALT/SGPT) 125H, Alkaline Phosphatase 68, Total Protein 5.5L, Albumin 2.5L, Globulin 3.0, Albumin/ Globulin Ratio 0.8L, Amylase Level 91, Lipase 52 Current Medications Medications (Trade) Dose Ordered Sig/Joann Route PRN Reason Start Time Stop Time Status Last Admin Dose Admin Acetaminophen (Tylenol) 650 mg Q4H PRN ORAL Mild Pain / TEMP>101 06/14/16 12:30 07/14/16 12:29 Acetaminophen (Tylenol) 650 mg Q4H PRN RECTAL Mild Pain/Temp > 100.5 06/14/16 12:45 07/14/16 12:44 Albuterol/ Ipratropium (DuoNeb 0.5-3(2.5)mg/3ml) 3 ml Q4H PRN HHN Shortness of Breath 06/14/16 19:15 06/19/16 19:14 Amikacin Protocol (Amikacin pharmacy to dose) 1 ea DAILY PRN MISC Per rx protocol 06/14/16 13:00 07/14/16 12:59 Amikacin Sulfate 1000 mg/Dextrose 114 ml @ 228 mls/hr Q36H IV 06/15/16 16:00 06/22/16 15:59 Atorvastatin Calcium (Lipitor) 10 mg BEDTIME ORAL 06/14/16 21:00 07/14/16 20:59 06/14/16 21:15 Dextrose (Dextrose 50%) STAT PRN IV Hypoglycemia 06/14/16 13:00 07/14/16 12:59 Docusate Sodium (Colace) 100 mg EVERY 12 HOURS ORAL 06/14/16 21:00 07/14/16 20:59 06/15/16 09:35 Ibuprofen (Advil) 200 mg Q4H PRN ORAL Mild Pain (Pain Scale 1-3) 06/14/16 14:45 07/14/16 14:44 Insulin Aspart (NovoLOG) BEFORE MEALS AND HS SUBQ 06/14/16 13:00 07/14/16 12:59 06/14/16 21:18 Metronidazole (Flagyl) 500 mg EVERY 8 HOURS ORAL 06/14/16 14:00 06/21/16 13:59 06/15/16 06:27 Ondansetron HCl (Zofran) 4 mg Q4H PRN IVP Nausea & Vomiting 06/14/16 12:45 07/14/16 12:44 Pantoprazole (Protonix) 40 mg DAILY ORAL 06/15/16 09:00 07/15/16 08:59 06/15/16 09:35 Rivaroxaban (Xarelto) 15 mg QPM ORAL 06/14/16 16:30 07/14/16 16:29 06/14/16 17:00 Sodium Chloride (Sodium Chloride 1000ml bag) 1,000 ml @ 75 mls/hr [id number] IV 06/14/16 12:45 07/14/16 12:44 06/15/16 00:12 Verapamil HCl (Calan) 80 mg Q12HR ORAL 06/14/16 21:00 07/14/16 20:59 06/15/16 09:36 Satya ([facility]),Margo MELENDEZ Jun 15, 2016 12:47
--- NOTE | 2016-06-15 13:16 | Internal Med Progress Note ---
Subjective Date of Service: Jun 15, 2016 Physician Name Vázquez,Chema Attending Physician Zion Echevarria MD Current Medications Medications (Trade) Dose Ordered Sig/Joann Route PRN Reason Start Time Stop Time Status Last Admin Dose Admin Acetaminophen (Tylenol) 650 mg Q4H PRN ORAL Mild Pain / TEMP>101 06/14/16 12:30 07/14/16 12:29 Acetaminophen (Tylenol) 650 mg Q4H PRN RECTAL Mild Pain/Temp > 100.5 06/14/16 12:45 07/14/16 12:44 Albuterol/ Ipratropium 3 ml 3 ml Q4H PRN HHN Shortness of Breath 06/14/16 19:15 06/19/16 19:14 Amikacin Protocol (Amikacin pharmacy to dose) 1 ea DAILY PRN MISC Per rx protocol 06/14/16 13:00 07/14/16 12:59 Amikacin Sulfate/ Dextrose (Amikin/D5W) 114 ml @ 228 mls/hr Q36H IV 06/15/16 16:00 06/22/16 15:59 Atorvastatin Calcium (Lipitor) 10 mg BEDTIME ORAL 06/14/16 21:00 07/14/16 20:59 06/14/16 21:15 Dextrose (Dextrose 50%) STAT PRN IV Hypoglycemia 06/14/16 13:00 07/14/16 12:59 Docusate Sodium (Colace) 100 mg EVERY 12 HOURS ORAL 06/14/16 21:00 07/14/16 20:59 06/15/16 09:35 Ibuprofen (Advil) 200 mg Q4H PRN ORAL Mild Pain (Pain Scale 1-3) 06/14/16 14:45 07/14/16 14:44 Insulin Aspart (NovoLOG) BEFORE MEALS AND HS SUBQ 06/14/16 13:00 07/14/16 12:59 06/14/16 21:18 Magnesium Sulfate 100 ml @ 100 mls/hr Q1H IVPB 06/15/16 13:00 06/15/16 14:59 Metronidazole (Flagyl) 500 mg EVERY 8 HOURS ORAL 06/14/16 14:00 06/21/16 13:59 06/15/16 06:27 Ondansetron HCl (Zofran) 4 mg Q4H PRN IVP Nausea & Vomiting 06/14/16 12:45 07/14/16 12:44 Pantoprazole (Protonix) 40 mg DAILY ORAL 06/15/16 09:00 07/15/16 08:59 06/15/16 09:35 Rivaroxaban (Xarelto) 15 mg QPM ORAL 06/14/16 16:30 07/14/16 16:29 06/14/16 17:00 Sodium Chloride (Sodium Chloride 1000ml bag) 1,000 ml @ 50 mls/hr Q20H IV 06/15/16 13:00 07/15/16 12:59 Verapamil HCl (Calan) 80 mg Q12HR ORAL 06/14/16 21:00 07/14/16 20:59 06/15/16 09:36 Allergies: Coded Allergies: ERYTHROMYCIN BASE (Verified Allergy, Intermediate, 06/11/16) CODEINE (Verified Allergy, Unknown, 06/11/16) MEPERIDINE (Verified Allergy, Unknown, 06/11/16) PENICILLINS (Verified Allergy, Unknown, 06/11/16) ROS Limited/Unobtainable: No Constitutional: Reports: no symptoms HEENT: Reports: no symptoms Cardiovascular: Reports: no symptoms Respiratory: Reports: no symptoms Gastrointestinal/Abdominal: Reports: no symptoms Genitourinary: Reports: no symptoms Neurologic/Psychiatric: Reports: no symptoms Subjective 75 YO F admitted with altered mental status. Now Urinary tract infection. C/O nausea and vomiting. Await GI consult. Cover for Int Med-Dr Echevarria. Objective Last Vital Signs Date Time Temp Pulse Resp B/P Pulse Ox O2 Delivery O2 Flow Rate FiO2 06/15/16 12:15 98.0 67 19 134/76 95 Room Air 06/15/16 07:18 1.5 06/14/16 22:33 28 Laboratory Tests Test 06/15/16 05:10 White Blood Count 6.6 K/UL (4.8-10.8) Red Blood Count 3.72 M/UL (4.20-5.40) L Hemoglobin 10.1 G/DL (12.0-16.0) L Hematocrit 31.5 % (37.0-47.0) L Mean Corpuscular Volume 85 FL (80-99) Mean Corpuscular Hemoglobin 27.2 PG (27.0-31.0) Mean Corpuscular Hemoglobin Concent 32.1 G/DL (32.0-36.0) Red Cell Distribution Width 13.1 % (11.6-14.8) Platelet Count 127 K/UL (150-450) L Mean Platelet Volume 7.4 FL (6.5-10.1) Neutrophils (%) (Auto) 65.0 % (45.0-75.0) Lymphocytes (%) (Auto) 22.4 % (20.0-45.0) Monocytes (%) (Auto) 10.0 % (1.0-10.0) Eosinophils (%) (Auto) 1.6 % (0.0-3.0) Basophils (%) (Auto) 1.0 % (0.0-2.0) Sodium Level 140 mEQ/L (135-145) Potassium Level 3.3 mEQ/L (3.4-4.9) L Chloride Level 100 mEQ/L (98-107) Carbon Dioxide Level 27 mEQ/L (20-30) Anion Gap 13 (5-15) Blood Urea Nitrogen 10 mg/dL (7-23) Creatinine 0.6 mg/dL (0.5-0.9) Estimat Glomerular Filtration Rate mL/min (>60) Glucose Level 116 mg/dL (74-106) #H Calcium Level 8.7 mg/dL (8.6-10.2) Total Bilirubin 1.1 mg/dL (0.0-1.2) Direct Bilirubin 0.5 mg/dL (0.1-0.3) H Aspartate Amino Transf (AST/SGOT) 151 U/L (5-40) H Alanine Aminotransferase (ALT/SGPT) 125 U/L (3-33) H Alkaline Phosphatase 68 U/L (35-104) Total Protein 5.5 g/dL (6.6-8.7) L Albumin 2.5 g/dL (3.5-5.2) L Globulin 3.0 g/dL Albumin/Globulin Ratio 0.8 (1.0-2.7) L Amylase Level 91 U/L (10-110) Lipase 52 U/L (< 60) Intake and Output 06/14/16 06/15/16 19:00 07:00 Intake Total 500 ml 720 ml Balance 500 ml 720 ml Intake Oral 500 ml 720 ml # Voids 3 3 # Bowel Movements 1 Objective General Appearance: WD/WN, moderate distress, obese EENT: PERRL/EOMI, normal ENT inspection Neck: non-tender, normal alignment, supple Cardiovascular: normal peripheral pulses, normal rate, regular rhythm, no gallop/murmur, no JVD Respiratory/Chest: chest wall non-tender, lungs clear, normal breath sounds, no respiratory distress, no accessory muscle use Abdomen: no organomegaly, no mass, decreased bowel sounds, guarding, tender Extremities: normal range of motion 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 (2) Renal failure Assessment & Plan: Pre renal. ?dehydration? Cont IV fluids. (3) Sick sinus syndrome Assessment & Plan: S/P pacemaker - normal interrogation. See cardiology note. (4) UTI (urinary tract infection) Assessment & Plan: ESBL E. Coli. D/C cefepime. Continue flagyl and amikacin per ID. (5) Altered mental status Assessment & Plan: Due to UTI. (6) Toxic metabolic encephalopathy (7) Pacemaker (8) Sepsis Assessment & Plan: See ID note. (9) Hypertension Assessment & Plan: Cont verapamil. (10) COPD (chronic obstructive pulmonary disease) (11) Hypercholesterolemia (12) Dysphagia (13) Leukocytosis (14) Nausea & vomiting Assessment & Plan: Start zofran. (15) Pancreatitis, acute Assessment & Plan: Await MRCP. Await GI consult. Dr Roper contacted earlier in week; Dr Massey notified. (16) Elevated liver function tests Status: not improved Assessment/Plan Discharge planning: [facility] CHEMA VÁZQUEZ Jun 15, 2016 13:16
--- NOTE | 2016-06-15 13:55 | Infectious Diseases Prog Note ---
Assessment/Plan Assessment/Plan 1. esbl e.coli uti, sepsis, fevers, leukocytosis, ? c.diff. - clinically better - leukocytosis and fever resolved - day number 4 of amikacin and flagyl - check labs 2. The patient has history of sick sinus syndrome. 3. Dyslipidemia. 4. Hypertension. 5. Diabetes. 6. Chronic obstructive pulmonary disease. 7. Asthma. 8. Dysphagia. 9. History of urinary tract infection. 10. Elevated creatinine improved. 11. Anemia. 12. Continue treatment for diabetes and hypertension, per primary. 13. Dementia. 14. Dehydration. 15. Pacemaker. 16. Continue treatment per primary library consultant. 17. Allergy to codeine, erythromycin, meperidine, and penicillin. 18. Family history is noncontributory. 19. Social history is negative. 20. guadarrama removed 21. MAR was noted. 22. Case was discussed with RN. 23. Case was discussed with patient. 24. continue treatment per primary and consultants 25. Wound care protocol. 26. d/w pt and answered questions 27. notes and record reviewed Subjective Constitutional: Denies: fever HEENT: Denies: congestion Respiratory: Denies: shortness of breath Cardiovascular: Denies: chest pain Gastrointestinal/Abdominal: Denies: diarrhea, nausea, vomiting Genitourinary: Reports: other - guadarrama removed, Denies: frequency, hematuria, nocturia Neurologic: Denies: headache Psychiatric: Denies: depression Skin: Denies: rash Hematologic: Denies: bleeding Musculoskeletal: Denies: pain Allergies: Coded Allergies: ERYTHROMYCIN BASE (Verified Allergy, Intermediate, 06/11/16) CODEINE (Verified Allergy, Unknown, 06/11/16) MEPERIDINE (Verified Allergy, Unknown, 06/11/16) PENICILLINS (Verified Allergy, Unknown, 06/11/16) Objective Vital Signs Last 24 Hour Vital Signs Date Time Temp Pulse Resp B/P Pulse Ox O2 Delivery O2 Flow Rate FiO2 06/15/16 12:15 98.0 67 19 134/76 95 Room Air 06/15/16 09:36 61 143/70 06/15/16 08:15 98.2 61 20 143/70 97 Room Air 06/15/16 07:18 61 16 Nasal Cannula 1.5 06/15/16 04:00 98.1 61 18 144/66 100 Nasal Cannula 2.0 06/15/16 00:00 98.2 67 18 148/70 97 Nasal Cannula 2.0 06/14/16 22:33 66 18 Nasal Cannula 2.0 28 06/14/16 21:16 66 126/73 06/14/16 20:00 99.0 66 18 126/73 100 Nasal Cannula 2.0 06/14/16 16:00 97.9 61 19 111/68 100 Nasal Cannula 2.0 Height (Feet): 5 Height (Inches): 5.00 Weight (Pounds): 195 General Appearance: no acute distress HEENT: normocephalic, atraumatic, anicteric, mucous membranes moist, PERRL, EOMI, pharynx normal, supple, no JVD Respiratory/Chest: lungs clear, normal breath sounds, no respiratory distress, no accessory muscle use Cardiovascular: normal rate, regular rhythm, no gallop/murmur, no JVD Abdomen: normal bowel sounds, soft, non tender, no organomegaly, non distended Genitourinary: other - no guadarrama Extremities: no cyanosis Skin: no rash 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 Complete 06/11/16 14:30 Urine,Clean Catch Urine Culture - Final Escherichia Coli - Esbl Complete 06/11/16 16:00 Rectum VRE Culture - Final Enterococcus Faecalis - Vre Complete Laboratory Tests Test 06/15/16 05:10 White Blood Count 6.6 K/UL (4.8-10.8) Red Blood Count 3.72 M/UL (4.20-5.40) L Hemoglobin 10.1 G/DL (12.0-16.0) L Hematocrit 31.5 % (37.0-47.0) L Mean Corpuscular Volume 85 FL (80-99) Mean Corpuscular Hemoglobin 27.2 PG (27.0-31.0) Mean Corpuscular Hemoglobin Concent 32.1 G/DL (32.0-36.0) Red Cell Distribution Width 13.1 % (11.6-14.8) Platelet Count 127 K/UL (150-450) L Mean Platelet Volume 7.4 FL (6.5-10.1) Neutrophils (%) (Auto) 65.0 % (45.0-75.0) Lymphocytes (%) (Auto) 22.4 % (20.0-45.0) Monocytes (%) (Auto) 10.0 % (1.0-10.0) Eosinophils (%) (Auto) 1.6 % (0.0-3.0) Basophils (%) (Auto) 1.0 % (0.0-2.0) Sodium Level 140 mEQ/L (135-145) Potassium Level 3.3 mEQ/L (3.4-4.9) L Chloride Level 100 mEQ/L (98-107) Carbon Dioxide Level 27 mEQ/L (20-30) Anion Gap 13 (5-15) Blood Urea Nitrogen 10 mg/dL (7-23) Creatinine 0.6 mg/dL (0.5-0.9) Estimat Glomerular Filtration Rate mL/min (>60) Glucose Level 116 mg/dL (74-106) #H Calcium Level 8.7 mg/dL (8.6-10.2) Total Bilirubin 1.1 mg/dL (0.0-1.2) Direct Bilirubin 0.5 mg/dL (0.1-0.3) H Aspartate Amino Transf (AST/SGOT) 151 U/L (5-40) H Alanine Aminotransferase (ALT/SGPT) 125 U/L (3-33) H Alkaline Phosphatase 68 U/L (35-104) Total Protein 5.5 g/dL (6.6-8.7) L Albumin 2.5 g/dL (3.5-5.2) L Globulin 3.0 g/dL Albumin/Globulin Ratio 0.8 (1.0-2.7) L Amylase Level 91 U/L (10-110) Lipase 52 U/L (< 60) Current Medications Medications (Trade) Dose Ordered Sig/Joann Route PRN Reason Start Time Stop Time Status Last Admin Dose Admin Acetaminophen (Tylenol) 650 mg Q4H PRN ORAL Mild Pain / TEMP>101 06/14/16 12:30 07/14/16 12:29 Acetaminophen (Tylenol) 650 mg Q4H PRN RECTAL Mild Pain/Temp > 100.5 06/14/16 12:45 07/14/16 12:44 Albuterol/ Ipratropium 3 ml 3 ml Q4H PRN HHN Shortness of Breath 06/14/16 19:15 06/19/16 19:14 Amikacin Protocol (Amikacin pharmacy to dose) 1 ea DAILY PRN MISC Per rx protocol 06/14/16 13:00 07/14/16 12:59 Amikacin Sulfate/ Dextrose (Amikin/D5W) 114 ml @ 228 mls/hr Q36H IV 06/15/16 16:00 06/22/16 15:59 Atorvastatin Calcium (Lipitor) 10 mg BEDTIME ORAL 06/14/16 21:00 07/14/16 20:59 06/14/16 21:15 Dextrose (Dextrose 50%) STAT PRN IV Hypoglycemia 06/14/16 13:00 07/14/16 12:59 Docusate Sodium (Colace) 100 mg EVERY 12 HOURS ORAL 06/14/16 21:00 07/14/16 20:59 06/15/16 09:35 Ibuprofen (Advil) 200 mg Q4H PRN ORAL Mild Pain (Pain Scale 1-3) 06/14/16 14:45 07/14/16 14:44 Insulin Aspart (NovoLOG) BEFORE MEALS AND HS SUBQ 06/14/16 13:00 07/14/16 12:59 06/15/16 13:21 Magnesium Sulfate 100 ml @ 100 mls/hr Q1H IVPB 06/15/16 13:00 06/15/16 14:59 06/15/16 13:25 Metronidazole (Flagyl) 500 mg EVERY 8 HOURS ORAL 06/14/16 14:00 06/21/16 13:59 06/15/16 13:25 Ondansetron HCl (Zofran) 4 mg Q4H PRN IVP Nausea & Vomiting 06/14/16 12:45 07/14/16 12:44 Pantoprazole (Protonix) 40 mg DAILY ORAL 06/15/16 09:00 07/15/16 08:59 06/15/16 09:35 Rivaroxaban (Xarelto) 15 mg QPM ORAL 06/14/16 16:30 07/14/16 16:29 06/14/16 17:00 Sodium Chloride (Sodium Chloride 1000ml bag) 1,000 ml @ 50 mls/hr Q20H IV 06/15/16 13:00 07/15/16 12:59 06/15/16 13:24 Verapamil HCl (Calan) 80 mg Q12HR ORAL 06/14/16 21:00 07/14/16 20:59 06/15/16 09:36 RAMÓN ALMARAZ Jun 15, 2016 13:55
[2016-06-15] MEDS: Amikacin 1,000 MG in D5W 110 ML IV SCH (16:15)
[2016-06-15] MEDS: Xarelto 15mg tab ORAL SCH (16:23)
[2016-06-16] VITALS: BP_SYST 109; BP_SYST 119; BP_DIAS 55; BP_DIAS 57
--- NOTE | 2016-06-16 03:38 | Consultation ---
DATE OF CONSULTATION: 06/15/2016 CHIEF COMPLAINT: Nausea, vomiting, and abdominal pain. HISTORY OF PRESENT ILLNESS: This is a 75-year-old female, who has past medical history of cholecystectomy, history of diabetes for over 10 years. She has history of dysphagia and altered mental status in the past, was admitted to the hospital. She had an episode of vomiting yesterday, so GI consult was requested for evaluation. PAST MEDICAL HISTORY: 1. History of diabetes for over 10 years. 2. History of UTI. 3. History of pacemaker placement. 4. Hypercholesterolemia. 5. COPD. 6. Hypertension. 7. Altered mental status. 8. Anemia. PAST SURGICAL HISTORY: Hysterectomy, cholecystectomy, and pacemaker placement. ALLERGIES: To codeine, erythromycin, meperidine, and penicillin. MEDICATIONS: Please see medication reconciliation list. SOCIAL HISTORY: The patient denies any tobacco, alcohol, or drug abuse. FAMILY HISTORY: Noncontributory. REVIEW OF SYSTEMS: Ten point review of system was performed pertinent positives in history of present illness. PHYSICAL EXAMINATION: GENERAL: This is a well-developed female, in no acute distress. VITAL SIGNS: Most recent vital signs, temperature is 98.2 degrees, pulse 61, respirations 20, and blood pressure is 143/70. HEENT: Normocephalic and atraumatic. Sclerae anicteric. NECK: Supple. No evidence of lymphadenopathy. CARDIOVASCULAR: Rhythm. Plus S1 and S2. LUNGS: Decreased breath sounds bilaterally . ABDOMEN: Soft and nontender. No rebound. No guarding. There is a scar in the midline below the umbilicus from prior hysterectomy. EXTREMITIES: No cyanosis, no clubbing, no edema. LABORATORY AND DIAGNOSTIC DATA: White count is 6.6, hemoglobin 10.1, hematocrit 31.5, and platelets are 127. INR is 1.2. Chem-7, sodium is 140, potassium 3.3, BUN is 10, creatinine is 0.6, and glucose is 116. Bilirubin is 1.1. AST of 151, ALT of 125, alkaline phosphatase of 68. Albumin is 2.5. INR is 1.2. ASSESSMENT: 1. Nausea and vomiting. 2. Abnormal liver function test. 3. Diabetes. 4. History of pacemaker placement. 5. Anemia, chronic. 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 Given, the patient has diabetes over 10 years. Other possibility given abnormal liver function tests and prior history of dilated common bile duct will be retained CBD stone. Other causes for abnormal liver function tests, would be given her body habitus and will be fatty liver and possibly Guerra on alcoholic steatohepatitis. The patient also had evidence of hypoalbuminemia, mild coagulopathy, mild thrombocytopenia, which suggest maybe chronic liver disease. Our plan will be to order abdominal ultrasound. Unfortunately, cannot do an MRCP given the patient has pacemaker. We are going to order an abnormal MRCP repeat liver function tests for tomorrow. We will send her for acute hepatitis panel for tomorrow. Meanwhile, we will consider adding Reglan for nausea and vomiting, the patient has recurrent vomiting. We also recommend tight blood sugar control. In terms of anemia, it seems to be chronic in prior admissions, the patient was anemic before. The patient denies any prior history of endoscopy and colonoscopy. We will start anemia workup. The patient is on Zoloft the patient is gastrointestinal procedures. We will have to stop the Zoloft for 48 hours. I want to thank, Dr. Zion Echevarria, for this kind referral. Prabhjot Massey M.D. DR: Tristan JOB#: [id number] CC: Zion Echevarria M.D.; Fax#: [phone]
[2016-06-16 04:00] VITALS: BP 134/72
[2016-06-16] MEDS: metroNIDAZOLE 500mg tab ORAL SCH ×3 (05:49→22:12)
[2016-06-16] MEDS: NovoLOG Insulin Flexpen SUBQ SCH ×4 (06:19→22:18)
[2016-06-16 07:23] LABS: MEAN CORPUSCULAR HEMOGLOBIN 27.9 PG (27.0-31.0); MEAN CORPUSCULAR HGB CONC 33.1 G/DL (32.0-36.0); MEAN CORPUSCULAR VOLUME 84 FL (80-99); PLATELET COUNT 150 K/UL (150-450); RED BLOOD COUNT 3.73 M/UL (4.20-5.40); RED CELL DISTRIBUTION WIDTH 13.3 % (11.6-14.8); WHITE BLOOD COUNT 5.8 K/UL (4.8-10.8)
[2016-06-16 07:24] LABS: BASOPHILS % (AUTO) 2.3 % (0.0-2.0); EOSINOPHILS % (AUTO) 2.1 % (0.0-3.0); LYMPHOCYTES % (AUTO) 22.2 % (20.0-45.0); MEAN PLATELET VOLUME 7.6 FL (6.5-10.1); MONOCYTES % (AUTO) 11.5 % (1.0-10.0); NEUTROPHILS % (AUTO) 61.8 % (45.0-75.0)
[2016-06-16 07:30] LABS: ALANINE AMINOTRANSFERASE 94 U/L (3-33); ALBUMIN/GLOBULIN RATIO 0.8 (1.0-2.7); ANION GAP 11 (5-15); ASPARTATE AMINO TRANSFERASE 73 U/L (5-40); CALCIUM 8.6 mg/dL (8.6-10.2); CARBON DIOXIDE 28 mEQ/L (20-30); CHLORIDE 103 mEQ/L (98-107); CREATININE 0.5 mg/dL (0.5-0.9); POTASSIUM 3.5 mEQ/L (3.4-4.9); SODIUM 142 mEQ/L (135-145); TOTAL PROTEIN 5.8 g/dL (6.6-8.7)
[2016-06-16 07:58] VITALS: BP 132/72
[2016-06-16 08:01] LABS: HEMOLYSIS 1; IRON 51 ug/dL (37-145); TOTAL IRON BINDING CAPACITY 217 ug/dL (250-400)
--- NOTE | 2016-06-16 11:13 | Internal Med Progress Note ---
Subjective Date of Service: Jun 16, 2016 Physician Name Wilder Vázquez Attending Physician Zion Echevarria MD Current Medications Medications (Trade) Dose Ordered Sig/Joann Route PRN Reason Start Time Stop Time Status Last Admin Dose Admin Acetaminophen (Tylenol) 650 mg Q4H PRN ORAL Mild Pain / TEMP>101 06/14/16 12:30 07/14/16 12:29 Acetaminophen (Tylenol) 650 mg Q4H PRN RECTAL Mild Pain/Temp > 100.5 06/14/16 12:45 07/14/16 12:44 Albuterol/ Ipratropium 3 ml 3 ml Q4H PRN HHN Shortness of Breath 06/14/16 19:15 06/19/16 19:14 Amikacin Protocol (Amikacin pharmacy to dose) 1 ea DAILY PRN MISC Per rx protocol 06/14/16 13:00 07/14/16 12:59 Amikacin Sulfate/ Dextrose (Amikin/D5W) 114 ml @ 228 mls/hr Q36H IV 06/15/16 16:00 06/22/16 15:59 06/15/16 16:15 Atorvastatin Calcium (Lipitor) 10 mg BEDTIME ORAL 06/14/16 21:00 07/14/16 20:59 06/15/16 21:14 Dextrose (Dextrose 50%) STAT PRN IV Hypoglycemia 06/14/16 13:00 07/14/16 12:59 Docusate Sodium (Colace) 100 mg EVERY 12 HOURS ORAL 06/14/16 21:00 07/14/16 20:59 06/15/16 21:15 Ibuprofen (Advil) 200 mg Q4H PRN ORAL Mild Pain (Pain Scale 1-3) 06/14/16 14:45 07/14/16 14:44 Insulin Aspart (NovoLOG) BEFORE MEALS AND HS SUBQ 06/14/16 13:00 07/14/16 12:59 06/15/16 21:16 Metronidazole (Flagyl) 500 mg EVERY 8 HOURS ORAL 06/14/16 14:00 06/21/16 13:59 06/16/16 05:49 Ondansetron HCl (Zofran) 4 mg Q4H PRN IVP Nausea & Vomiting 06/14/16 12:45 07/14/16 12:44 Pantoprazole (Protonix) 40 mg DAILY ORAL 06/15/16 09:00 07/15/16 08:59 06/15/16 09:35 Rivaroxaban (Xarelto) 15 mg QPM ORAL 06/14/16 16:30 07/14/16 16:29 06/15/16 16:23 Sodium Chloride (Sodium Chloride 1000ml bag) 1,000 ml @ 50 mls/hr Q20H IV 06/15/16 13:00 07/15/16 12:59 06/15/16 13:24 Verapamil HCl (Calan) 80 mg Q12HR ORAL 06/14/16 21:00 07/14/16 20:59 06/15/16 21:15 Allergies: Coded Allergies: ERYTHROMYCIN BASE (Verified Allergy, Intermediate, 06/11/16) CODEINE (Verified Allergy, Unknown, 06/11/16) MEPERIDINE (Verified Allergy, Unknown, 06/11/16) PENICILLINS (Verified Allergy, Unknown, 06/11/16) ROS Limited/Unobtainable: No Constitutional: Reports: no symptoms HEENT: Reports: no symptoms Cardiovascular: Reports: no symptoms Respiratory: Reports: no symptoms Gastrointestinal/Abdominal: Reports: no symptoms Genitourinary: Reports: no symptoms Neurologic/Psychiatric: Reports: no symptoms Subjective 75 YO F admitted with altered mental status. Now Urinary tract infection. Appreciate GI consult. Await abdominal ultrasound. Cover for Int Med-Dr Echevarria. Objective Last Vital Signs Date Time Temp Pulse Resp B/P Pulse Ox O2 Delivery O2 Flow Rate FiO2 06/16/16 07:58 97.7 61 20 132/72 96 Nasal Cannula 06/16/16 04:00 2.0 06/15/16 21:52 28 Laboratory Tests Test 06/16/16 06:25 White Blood Count 5.8 K/UL (4.8-10.8) Red Blood Count 3.73 M/UL (4.20-5.40) L Hemoglobin 10.4 G/DL (12.0-16.0) L Hematocrit 31.5 % (37.0-47.0) L Mean Corpuscular Volume 84 FL (80-99) Mean Corpuscular Hemoglobin 27.9 PG (27.0-31.0) Mean Corpuscular Hemoglobin Concent 33.1 G/DL (32.0-36.0) Red Cell Distribution Width 13.3 % (11.6-14.8) Platelet Count 150 K/UL (150-450) Mean Platelet Volume 7.6 FL (6.5-10.1) Neutrophils (%) (Auto) 61.8 % (45.0-75.0) Lymphocytes (%) (Auto) 22.2 % (20.0-45.0) Monocytes (%) (Auto) 11.5 % (1.0-10.0) H Eosinophils (%) (Auto) 2.1 % (0.0-3.0) Basophils (%) (Auto) 2.3 % (0.0-2.0) H Sodium Level 142 mEQ/L (135-145) Potassium Level 3.5 mEQ/L (3.4-4.9) Chloride Level 103 mEQ/L (98-107) Carbon Dioxide Level 28 mEQ/L (20-30) Anion Gap 11 (5-15) Blood Urea Nitrogen 9 mg/dL (7-23) Creatinine 0.5 mg/dL (0.5-0.9) Estimat Glomerular Filtration Rate mL/min (>60) Glucose Level 141 mg/dL (74-106) H Calcium Level 8.6 mg/dL (8.6-10.2) Magnesium Level 1.7 mg/dL (1.7-2.5) Iron Level 51 ug/dL (37-145) Total Iron Binding Capacity 217 ug/dL (250-400) L Percent Iron Saturation 24 % (15-50) Unsaturated Iron Binding 166 ug/dL (112-346) Total Bilirubin 0.8 mg/dL (0.0-1.2) Aspartate Amino Transf (AST/SGOT) 73 U/L (5-40) H Alanine Aminotransferase (ALT/SGPT) 94 U/L (3-33) H Alkaline Phosphatase 67 U/L (35-104) Total Protein 5.8 g/dL (6.6-8.7) L Albumin 2.7 g/dL (3.5-5.2) L Globulin 3.1 g/dL Albumin/Globulin Ratio 0.8 (1.0-2.7) L Carcinoembryonic Antigen 1.8 ng/mL Vitamin B12 Level 1015 pg/mL (211-946) H Folate Pending Hepatitis A IgM Antibody Pending Hepatitis B Surface Antigen Pending Hepatitis B Core IgM Antibody Pending Hepatitis C Antibody Pending Intake and Output 06/15/16 06/16/16 18:59 06:59 Intake Total 480 ml 800 ml Balance 480 ml 800 ml Intake Oral 480 ml 250 ml IV Total 550 ml # Voids 3 2 Objective General Appearance: WD/WN, moderate distress, obese EENT: PERRL/EOMI, normal ENT inspection Neck: non-tender, normal alignment, supple Cardiovascular: normal peripheral pulses, normal rate, regular rhythm, no gallop/murmur, no JVD Respiratory/Chest: chest wall non-tender, lungs clear, normal breath sounds, no respiratory distress, no accessory muscle use Abdomen: no organomegaly, no mass, decreased bowel sounds, guarding, tender Extremities: normal range of motion 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 (2) Renal failure Assessment & Plan: Pre renal. ?dehydration? Cont IV fluids. (3) Sick sinus syndrome Assessment & Plan: S/P pacemaker - normal interrogation. See cardiology note. (4) UTI (urinary tract infection) Assessment & Plan: ESBL E. Coli. D/C cefepime. Continue flagyl and amikacin per ID. (5) Altered mental status Assessment & Plan: Due to UTI. (6) Toxic metabolic encephalopathy (7) Pacemaker (8) Sepsis Assessment & Plan: See ID note. (9) Hypertension Assessment & Plan: Cont verapamil. (10) COPD (chronic obstructive pulmonary disease) (11) Hypercholesterolemia (12) Dysphagia (13) Leukocytosis (14) Nausea & vomiting Assessment & Plan: Start zofran. (15) Pancreatitis, acute Assessment & Plan: MRCP cancelled due to pacemaker - see GI consult; Dr Massey (16) Elevated liver function tests Assessment/Plan Discharge planning: [facility] if abdominal ultrasound normal. WILDER VÁZQUEZ Jun 16, 2016 11:13
[2016-06-16 11:47] VITALS: BP 136/70
[2016-06-16] MEDS: Verapamil 80mg tab ORAL SCH ×2 (12:26→22:12)
[2016-06-16] MEDS: Docusate 100mg cap ORAL SCH ×2 (12:26→22:12)
[2016-06-16 16:00] VITALS: BP 127/72
--- NOTE | 2016-06-16 16:12 | Cardiac Electrophysiology PN ---
Assessment/Plan Assessment/Plan 1. Status post [employer] pacemaker with normal function. 2. Hypertension. Continue Verapamil 80 bid. 3. Diastolic CHF with EF 50-55%. Euvolemic 4. Bilateral acute lower extremity deep venous thrombosis, on Xarelto 15 mg daily 5. Hyperlipidemia. On Lipitor 10 6. UTI sepsis DW RN Subjective Subjective No new events overnight. Denies any chest pain or SOB. DC planning is for tomorrow. Objective Last 24 Hour Vital Signs Date Time Temp Pulse Resp B/P Pulse Ox O2 Delivery O2 Flow Rate FiO2 06/16/16 12:26 60 136/70 06/16/16 11:47 98.7 60 21 136/70 99 Nasal Cannula 2.0 06/16/16 07:58 97.7 61 20 132/72 96 Nasal Cannula 06/16/16 07:19 Nasal Cannula 2.0 06/16/16 07:19 60 16 Nasal Cannula 2.0 06/16/16 07:19 99 Nasal Cannula 2.0 06/16/16 04:00 97.3 63 20 134/72 100 Nasal Cannula 2.0 06/16/16 00:00 97.9 60 20 119/57 94 Nasal Cannula 2.0 06/15/16 21:52 Nasal Cannula 2.0 28 06/15/16 21:52 99 Nasal Cannula 2.0 28 06/15/16 21:51 65 16 Nasal Cannula 2.0 28 06/15/16 21:15 66 129/70 06/15/16 20:00 98.2 65 20 108/58 99 Nasal Cannula 2.0 Intake and Output 06/15/16 06/16/16 19:00 07:00 Intake Total 480 ml 850 ml Balance 480 ml 850 ml Intake Oral 480 ml 250 ml IV Total 600 ml # Voids 3 2 Laboratory Tests Test 06/16/16 06:25 White Blood Count 5.8 K/UL (4.8-10.8) Red Blood Count 3.73 M/UL (4.20-5.40) L Hemoglobin 10.4 G/DL (12.0-16.0) L Hematocrit 31.5 % (37.0-47.0) L Mean Corpuscular Volume 84 FL (80-99) Mean Corpuscular Hemoglobin 27.9 PG (27.0-31.0) Mean Corpuscular Hemoglobin Concent 33.1 G/DL (32.0-36.0) Red Cell Distribution Width 13.3 % (11.6-14.8) Platelet Count 150 K/UL (150-450) Mean Platelet Volume 7.6 FL (6.5-10.1) Neutrophils (%) (Auto) 61.8 % (45.0-75.0) Lymphocytes (%) (Auto) 22.2 % (20.0-45.0) Monocytes (%) (Auto) 11.5 % (1.0-10.0) H Eosinophils (%) (Auto) 2.1 % (0.0-3.0) Basophils (%) (Auto) 2.3 % (0.0-2.0) H Sodium Level 142 mEQ/L (135-145) Potassium Level 3.5 mEQ/L (3.4-4.9) Chloride Level 103 mEQ/L (98-107) Carbon Dioxide Level 28 mEQ/L (20-30) Anion Gap 11 (5-15) Blood Urea Nitrogen 9 mg/dL (7-23) Creatinine 0.5 mg/dL (0.5-0.9) Estimat Glomerular Filtration Rate mL/min (>60) Glucose Level 141 mg/dL (74-106) H Calcium Level 8.6 mg/dL (8.6-10.2) Magnesium Level 1.7 mg/dL (1.7-2.5) Iron Level 51 ug/dL (37-145) Total Iron Binding Capacity 217 ug/dL (250-400) L Percent Iron Saturation 24 % (15-50) Unsaturated Iron Binding 166 ug/dL (112-346) Total Bilirubin 0.8 mg/dL (0.0-1.2) Aspartate Amino Transf (AST/SGOT) 73 U/L (5-40) H Alanine Aminotransferase (ALT/SGPT) 94 U/L (3-33) H Alkaline Phosphatase 67 U/L (35-104) Total Protein 5.8 g/dL (6.6-8.7) L Albumin 2.7 g/dL (3.5-5.2) L Globulin 3.1 g/dL Albumin/Globulin Ratio 0.8 (1.0-2.7) L Carcinoembryonic Antigen 1.8 ng/mL Vitamin B12 Level 1015 pg/mL (211-946) H Folate Pending Hepatitis A IgM Antibody Pending Hepatitis B Surface Antigen Pending Hepatitis B Core IgM Antibody Pending Hepatitis C Antibody Pending Objective HEAD AND NECK: No JVD. LUNGS: Clear. CARDIOVASCULAR: Regular S1 and S2 with no gallop or murmur. The pacemaker is left subclavian. ABDOMEN: Soft, but obese. EXTREMITIES: 1+ pitting edema. JAMAAL LAWS Jun 16, 2016 16:12
--- NOTE | 2016-06-16 16:28 | Pulmonology Progress Note ---
Assessment/Plan Problems: (1) Sepsis (2) COPD (chronic obstructive pulmonary disease) (3) Toxic metabolic encephalopathy (4) Pacemaker (5) Functional quadriplegia (6) Hypertension Assessment/Plan continue IV antibiotic MRD urosepsis improving tolerating diet check electrolytes pace maker interrogated, titrate fio2 to sat of 92% dc planning Subjective ROS Limited/Unobtainable: No Interval Events: comfortable, no new complains Allergies: Coded Allergies: ERYTHROMYCIN BASE (Verified Allergy, Intermediate, 06/11/16) CODEINE (Verified Allergy, Unknown, 06/11/16) MEPERIDINE (Verified Allergy, Unknown, 06/11/16) PENICILLINS (Verified Allergy, Unknown, 06/11/16) Objective Last 24 Hour Vital Signs Date Time Temp Pulse Resp B/P Pulse Ox O2 Delivery O2 Flow Rate FiO2 06/16/16 12:26 60 136/70 06/16/16 11:47 98.7 60 21 136/70 99 Nasal Cannula 2.0 06/16/16 07:58 97.7 61 20 132/72 96 Nasal Cannula 06/16/16 07:19 Nasal Cannula 2.0 06/16/16 07:19 60 16 Nasal Cannula 2.0 06/16/16 07:19 99 Nasal Cannula 2.0 06/16/16 04:00 97.3 63 20 134/72 100 Nasal Cannula 2.0 06/16/16 00:00 97.9 60 20 119/57 94 Nasal Cannula 2.0 06/15/16 21:52 Nasal Cannula 2.0 28 06/15/16 21:52 99 Nasal Cannula 2.0 28 06/15/16 21:51 65 16 Nasal Cannula 2.0 28 06/15/16 21:15 66 129/70 06/15/16 20:00 98.2 65 20 108/58 99 Nasal Cannula 2.0 Intake and Output 06/15/16 06/16/16 19:00 07:00 Intake Total 480 ml 850 ml Balance 480 ml 850 ml Intake Oral 480 ml 250 ml IV Total 600 ml # Voids 3 2 General Appearance: WD/WN HEENT: normocephalic, atraumatic Respiratory/Chest: chest wall non-tender, lungs clear, normal breath sounds Cardiovascular: normal peripheral pulses, normal rate Abdomen: normal bowel sounds Extremities: no cyanosis Skin: no rash, no lesions 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, no motor/sensory deficits Lymphatic: no neck adenopathy Laboratory Tests 06/16/16 06:25: White Blood Count 5.8, Red Blood Count 3.73L, Hemoglobin 10.4L, Hematocrit 31.5L , Mean Corpuscular Volume 84, Mean Corpuscular Hemoglobin 27.9, Mean Corpuscular Hemoglobin Concent 33.1, Red Cell Distribution Width 13.3, Platelet Count 150, Mean Platelet Volume 7.6, Neutrophils (%) (Auto) 61.8, Lymphocytes (% ) (Auto) 22.2, Monocytes (%) (Auto) 11.5H, Eosinophils (%) (Auto) 2.1, Basophils (%) (Auto) 2.3H, Sodium Level 142, Potassium Level 3.5, Chloride Level 103, Carbon Dioxide Level 28, Anion Gap 11, Blood Urea Nitrogen 9, Creatinine 0.5, Estimat Glomerular Filtration Rate , Glucose Level 141H, Calcium Level 8.6, Magnesium Level 1.7, Iron Level 51, Total Iron Binding Capacity 217L, Percent Iron Saturation 24, Unsaturated Iron Binding 166, Total Bilirubin 0.8, Aspartate Amino Transf (AST/SGOT) 73H, Alanine Aminotransferase ( ALT/SGPT) 94H, Alkaline Phosphatase 67, Total Protein 5.8L, Albumin 2.7L, Globulin 3.1, Albumin/Globulin Ratio 0.8L, Carcinoembryonic Antigen 1.8, Vitamin B12 Level 1015H, Folate [Pending], Hepatitis A IgM Antibody [Pending], Hepatitis B Surface Antigen [Pending], Hepatitis B Core IgM Antibody [Pending], Hepatitis C Antibody [Pending] Current Medications Medications (Trade) Dose Ordered Sig/Joann Route PRN Reason Start Time Stop Time Status Last Admin Dose Admin Acetaminophen (Tylenol) 650 mg Q4H PRN ORAL Mild Pain / TEMP>101 06/14/16 12:30 07/14/16 12:29 Acetaminophen (Tylenol) 650 mg Q4H PRN RECTAL Mild Pain/Temp > 100.5 06/14/16 12:45 07/14/16 12:44 Albuterol/ Ipratropium (DuoNeb 0.5-3(2.5)mg/3ml) 3 ml Q4H PRN HHN Shortness of Breath 06/14/16 19:15 06/19/16 19:14 Amikacin Protocol (Amikacin pharmacy to dose) 1 ea DAILY PRN MISC Per rx protocol 06/14/16 13:00 07/14/16 12:59 Amikacin Sulfate/ Dextrose (Amikin/D5W) 114 ml @ 228 mls/hr Q36H IV 06/15/16 16:00 06/22/16 15:59 06/15/16 16:15 Atorvastatin Calcium (Lipitor) 10 mg BEDTIME ORAL 06/14/16 21:00 07/14/16 20:59 06/15/16 21:14 Dextrose (Dextrose 50%) STAT PRN IV Hypoglycemia 06/14/16 13:00 07/14/16 12:59 Docusate Sodium (Colace) 100 mg EVERY 12 HOURS ORAL 06/14/16 21:00 07/14/16 20:59 06/16/16 12:26 Ibuprofen (Advil) 200 mg Q4H PRN ORAL Mild Pain (Pain Scale 1-3) 06/14/16 14:45 07/14/16 14:44 Insulin Aspart (NovoLOG) BEFORE MEALS AND HS SUBQ 06/14/16 13:00 07/14/16 12:59 06/16/16 12:30 Metronidazole (Flagyl) 500 mg EVERY 8 HOURS ORAL 06/14/16 14:00 06/21/16 13:59 06/16/16 14:11 Ondansetron HCl (Zofran) 4 mg Q4H PRN IVP Nausea & Vomiting 06/14/16 12:45 07/14/16 12:44 Pantoprazole (Protonix) 40 mg DAILY ORAL 06/15/16 09:00 07/15/16 08:59 06/15/16 09:35 Rivaroxaban (Xarelto) 15 mg QPM ORAL 06/14/16 16:30 07/14/16 16:29 06/15/16 16:23 Verapamil HCl (Calan) 80 mg Q12HR ORAL 06/14/16 21:00 07/14/16 20:59 06/16/16 12:26 JONH RODRIGUEZ Jun 16, 2016 16:28
--- NOTE | 2016-06-16 16:51 | GI Progress Note ---
Assessment/Plan Problems: (1) Uncontrolled diabetes mellitus ICD Codes: E11.65 - Type 2 diabetes mellitus with hyperglycemia SNOMED: 427111988 (2) Pacemaker ICD Codes: Z95.0 - Presence of cardiac pacemaker SNOMED: 797457979 (3) Elevated liver function tests ICD Codes: R94.5 - Abnormal results of liver function studies SNOMED: 739207995 (4) Altered mental status ICD Codes: R41.82 - Altered mental status, unspecified SNOMED: 228488533 Qualifiers: Qualified Codes: R41.82 - Altered mental status, unspecified (5) Dysphagia ICD Codes: R13.10 - Dysphagia, unspecified SNOMED: 17075173, 975995717 (6) Failure to thrive ICD Codes: QIJ4589 - Reserved for [id number] codable problem concepts SNOMED: 78640222 Status: unchanged Status Narrative Discussed with Dr. Massey. Assessment/Plan abnormal LFTs >> downtrending N/V >> possible DM induced gastroparesis >> reglan fu abdominal U/S fu hep side panel hanger H&H, transfuse prn ppi bowel regime fu labs pt on Xarelto (will have to stop x 48 hours prior GI procedures) The patient was seen and examined at bedside and all new and available data was reviewed in the patients chart. I agree with the above findings, impression and plan. (Patient seen earlier today. Signature stamp does not reflect patient encounter time.). -Prabhjot Massey MD Subjective Subjective limited Objective Last 24 Hour Vital Signs Date Time Temp Pulse Resp B/P Pulse Ox O2 Delivery O2 Flow Rate FiO2 06/16/16 12:26 60 136/70 06/16/16 11:47 98.7 60 21 136/70 99 Nasal Cannula 2.0 06/16/16 07:58 97.7 61 20 132/72 96 Nasal Cannula 06/16/16 07:19 Nasal Cannula 2.0 06/16/16 07:19 60 16 Nasal Cannula 2.0 06/16/16 07:19 99 Nasal Cannula 2.0 06/16/16 04:00 97.3 63 20 134/72 100 Nasal Cannula 2.0 06/16/16 00:00 97.9 60 20 119/57 94 Nasal Cannula 2.0 06/15/16 21:52 Nasal Cannula 2.0 28 06/15/16 21:52 99 Nasal Cannula 2.0 28 06/15/16 21:51 65 16 Nasal Cannula 2.0 28 06/15/16 21:15 66 129/70 06/15/16 20:00 98.2 65 20 108/58 99 Nasal Cannula 2.0 Intake and Output 06/15/16 06/16/16 19:00 07:00 Intake Total 480 ml 850 ml Balance 480 ml 850 ml Intake Oral 480 ml 250 ml IV Total 600 ml # Voids 3 2 Laboratory Tests Test 06/16/16 06:25 White Blood Count 5.8 K/UL (4.8-10.8) Red Blood Count 3.73 M/UL (4.20-5.40) L Hemoglobin 10.4 G/DL (12.0-16.0) L Hematocrit 31.5 % (37.0-47.0) L Mean Corpuscular Volume 84 FL (80-99) Mean Corpuscular Hemoglobin 27.9 PG (27.0-31.0) Mean Corpuscular Hemoglobin Concent 33.1 G/DL (32.0-36.0) Red Cell Distribution Width 13.3 % (11.6-14.8) Platelet Count 150 K/UL (150-450) Mean Platelet Volume 7.6 FL (6.5-10.1) Neutrophils (%) (Auto) 61.8 % (45.0-75.0) Lymphocytes (%) (Auto) 22.2 % (20.0-45.0) Monocytes (%) (Auto) 11.5 % (1.0-10.0) H Eosinophils (%) (Auto) 2.1 % (0.0-3.0) Basophils (%) (Auto) 2.3 % (0.0-2.0) H Sodium Level 142 mEQ/L (135-145) Potassium Level 3.5 mEQ/L (3.4-4.9) Chloride Level 103 mEQ/L (98-107) Carbon Dioxide Level 28 mEQ/L (20-30) Anion Gap 11 (5-15) Blood Urea Nitrogen 9 mg/dL (7-23) Creatinine 0.5 mg/dL (0.5-0.9) Estimat Glomerular Filtration Rate mL/min (>60) Glucose Level 141 mg/dL (74-106) H Calcium Level 8.6 mg/dL (8.6-10.2) Magnesium Level 1.7 mg/dL (1.7-2.5) Iron Level 51 ug/dL (37-145) Total Iron Binding Capacity 217 ug/dL (250-400) L Percent Iron Saturation 24 % (15-50) Unsaturated Iron Binding 166 ug/dL (112-346) Total Bilirubin 0.8 mg/dL (0.0-1.2) Aspartate Amino Transf (AST/SGOT) 73 U/L (5-40) H Alanine Aminotransferase (ALT/SGPT) 94 U/L (3-33) H Alkaline Phosphatase 67 U/L (35-104) Total Protein 5.8 g/dL (6.6-8.7) L Albumin 2.7 g/dL (3.5-5.2) L Globulin 3.1 g/dL Albumin/Globulin Ratio 0.8 (1.0-2.7) L Carcinoembryonic Antigen 1.8 ng/mL Vitamin B12 Level 1015 pg/mL (211-946) H Folate Pending Hepatitis A IgM Antibody Pending Hepatitis B Surface Antigen Pending Hepatitis B Core IgM Antibody Pending Hepatitis C Antibody Pending Height (Feet): 5 Height (Inches): 5.00 Weight (Pounds): 195 General Appearance: no apparent distress, alert, confused Cardiovascular: normal rate Respiratory/Chest: no respiratory distress Abdominal Exam: normal bowel sounds, non tender, soft Juanita Friedman N.P. Jun 16, 2016 16:51 PRABHJOT MASSEY Jun 20, 2016 07:59
--- NOTE | 2016-06-16 17:14 | Diagnostic Imaging Report ---
Indication: Abdominal pain, abnormal liver function tests, abnormal amylase and lipase Technique: Liu-scale and duplex images of the upper abdomen were obtained Comparison: 05/02/2015 Findings: The pancreas is unremarkable. The liver demonstrates normal echogenicity, no focal abnormality. Patent portal and hepatic veins. Right kidney measures 10.9 cm in length. It demonstrates mild hydronephrosis. It demonstrates multiple cysts, measuring up to 2.8 cm long axis dimension. Focal hyperechoic area measuring 5 mm diameter is seen within the cortex. This is not definitely evident previously. The gallbladder is surgically absent. The common bile duct measures 9 mm diameter. Is larger than the previous dimension of 4 mm diameter. The abdominal aorta is normal in caliber. The left kidney measures 11.4 cm in length. Demonstrates multiple cysts. Possible calcifications are seen within the cortex. Is not definitely evident previously. The spleen is borderline enlarged, measuring 13 cm long axis dimension. The bladder is unremarkable. Impression: Surgically absent gallbladder. Mildly dilated common bile duct, downstream obstruction not. Correlate with liver function tests, consider MRCP if clinically indicated. Mild right hydronephrosis. Etiology not demonstrated. Consider CT for further evaluation if clinically indicated. Echogenic structure in the left kidney, may reflect small calculi demonstrated on CT scan of 08/29/2015 Questionable echogenic structure in the right kidney, possibly a calculus or cortical calcification. Note, however, no corresponding abnormality is seen on recent CT scan the right kidney Bilateral renal cysts Borderline splenomegaly
[2016-06-16] MEDS: Xarelto 15mg tab ORAL SCH (17:50)
[2016-06-16 19:00] VITALS: BP 136/76
[2016-06-17] VITALS (7 sets, daily range): BP systolic 103–141; BP diastolic 40–74
[2016-06-17] MEDS: Amikacin 1,000 MG in D5W 110 ML IV SCH (05:12)
[2016-06-17] MEDS: metroNIDAZOLE 500mg tab ORAL SCH ×2 (05:12→14:46)
[2016-06-17] MEDS: NovoLOG Insulin Flexpen SUBQ SCH ×4 (06:47→21:00)
[2016-06-17 07:22] LABS: ALANINE AMINOTRANSFERASE 78 U/L (3-33); ALBUMIN/GLOBULIN RATIO 0.7 (1.0-2.7); ANION GAP 13 (5-15); ASPARTATE AMINO TRANSFERASE 68 U/L (5-40); CALCIUM 8.7 mg/dL (8.6-10.2); CARBON DIOXIDE 26 mEQ/L (20-30); CHLORIDE 100 mEQ/L (98-107); CREATININE 0.4 mg/dL (0.5-0.9); HEMOLYSIS 7; POTASSIUM 3.4 mEQ/L (3.4-4.9); SODIUM 139 mEQ/L (135-145); TOTAL PROTEIN 5.9 g/dL (6.6-8.7)
[2016-06-17 07:41] LABS: BASOPHILS % (AUTO) 1.3 % (0.0-2.0); EOSINOPHILS % (AUTO) 2.3 % (0.0-3.0); LYMPHOCYTES % (AUTO) 21.5 % (20.0-45.0); MEAN CORPUSCULAR HEMOGLOBIN 27.4 PG (27.0-31.0); MEAN CORPUSCULAR HGB CONC 32.5 G/DL (32.0-36.0); MEAN CORPUSCULAR VOLUME 84 FL (80-99); MEAN PLATELET VOLUME 7.1 FL (6.5-10.1); MONOCYTES % (AUTO) 10.1 % (1.0-10.0); NEUTROPHILS % (AUTO) 64.7 % (45.0-75.0); PLATELET COUNT 178 K/UL (150-450); RED CELL DISTRIBUTION WIDTH 13.2 % (11.6-14.8); WHITE BLOOD COUNT 6.1 K/UL (4.8-10.8)
[2016-06-17] MEDS: Docusate 100mg cap ORAL SCH ×2 (08:04→21:31)
[2016-06-17] MEDS: Verapamil 80mg tab ORAL SCH ×2 (08:05→21:31)
--- NOTE | 2016-06-17 13:02 | GI Progress Note ---
Assessment/Plan Problems: (1) Uncontrolled diabetes mellitus ICD Codes: E11.65 - Type 2 diabetes mellitus with hyperglycemia SNOMED: 912268734 (2) Pacemaker ICD Codes: Z95.0 - Presence of cardiac pacemaker SNOMED: 962831273 (3) Elevated liver function tests ICD Codes: R94.5 - Abnormal results of liver function studies SNOMED: 195583020 (4) Altered mental status ICD Codes: R41.82 - Altered mental status, unspecified SNOMED: 835739270 Qualifiers: Qualified Codes: R41.82 - Altered mental status, unspecified (5) Dysphagia ICD Codes: R13.10 - Dysphagia, unspecified SNOMED: 84203865, 120453262 (6) Failure to thrive ICD Codes: OIW4429 - Reserved for [id number] codable problem concepts SNOMED: 81915890 Status: stable, progressing Status Narrative Discussed with Dr. Massey. Assessment/Plan elevated LFTs >> downtrending N/V >> possible DM induced gastroparesis >> reglan fu abdominal U/S >> Mildly dilated common bile duct >> defer MRCP, pt has pacemaker fu hep panel beater H&H, transfuse prn ppi bowel regime tolerating diet fu labs pt on Xarelto (will have to stop x 48 hours prior GI procedures) Subjective Gastrointestinal/Abdominal: Reports: no symptoms Objective Last 24 Hour Vital Signs Date Time Temp Pulse Resp B/P Pulse Ox O2 Delivery O2 Flow Rate FiO2 06/17/16 11:26 97.1 66 14 130/64 97 Room Air 06/17/16 08:05 60 127/77 06/17/16 07:51 Room Air 06/17/16 07:51 97 Room Air 21 06/17/16 07:50 60 18 Room Air 21 06/17/16 07:33 97.0 60 14 127/67 97 Room Air 06/17/16 04:00 97.9 62 20 123/63 98 Nasal Cannula 2.0 06/17/16 00:00 98.2 64 20 136/67 100 Nasal Cannula 2.0 06/16/16 22:12 60 136/76 06/16/16 20:26 100 Nasal Cannula 2.0 28 06/16/16 20:26 Nasal Cannula 2.0 28 06/16/16 20:25 60 18 Nasal Cannula 2.0 28 06/16/16 19:00 98.6 64 20 136/76 99 Room Air 06/16/16 16:00 97.7 60 20 127/72 98 Room Air Intake and Output 06/16/16 06/17/16 18:59 06:59 Intake Total 590 ml 240 ml Balance 590 ml 240 ml Intake Oral 240 ml 240 ml IV Total 350 ml # Voids 2 6 Laboratory Tests Test 06/17/16 04:35 White Blood Count 6.1 K/UL (4.8-10.8) Red Blood Count 3.80 M/UL (4.20-5.40) L Hemoglobin 10.4 G/DL (12.0-16.0) L Hematocrit 32.1 % (37.0-47.0) L Mean Corpuscular Volume 84 FL (80-99) Mean Corpuscular Hemoglobin 27.4 PG (27.0-31.0) Mean Corpuscular Hemoglobin Concent 32.5 G/DL (32.0-36.0) Red Cell Distribution Width 13.2 % (11.6-14.8) Platelet Count 178 K/UL (150-450) Mean Platelet Volume 7.1 FL (6.5-10.1) Neutrophils (%) (Auto) 64.7 % (45.0-75.0) Lymphocytes (%) (Auto) 21.5 % (20.0-45.0) Monocytes (%) (Auto) 10.1 % (1.0-10.0) H Eosinophils (%) (Auto) 2.3 % (0.0-3.0) Basophils (%) (Auto) 1.3 % (0.0-2.0) Sodium Level 139 mEQ/L (135-145) Potassium Level 3.4 mEQ/L (3.4-4.9) Chloride Level 100 mEQ/L (98-107) Carbon Dioxide Level 26 mEQ/L (20-30) Anion Gap 13 (5-15) Blood Urea Nitrogen 9 mg/dL (7-23) Creatinine 0.4 mg/dL (0.5-0.9) L Estimat Glomerular Filtration Rate mL/min (>60) Glucose Level 146 mg/dL (74-106) H Calcium Level 8.7 mg/dL (8.6-10.2) Total Bilirubin 0.7 mg/dL (0.0-1.2) Aspartate Amino Transf (AST/SGOT) 68 U/L (5-40) H Alanine Aminotransferase (ALT/SGPT) 78 U/L (3-33) H Alkaline Phosphatase 70 U/L (35-104) Total Protein 5.9 g/dL (6.6-8.7) L Albumin 2.6 g/dL (3.5-5.2) L Globulin 3.3 g/dL Albumin/Globulin Ratio 0.7 (1.0-2.7) L Height (Feet): 5 Height (Inches): 5.00 Weight (Pounds): 195 General Appearance: no apparent distress, alert, obese Cardiovascular: normal rate Respiratory/Chest: normal breath sounds, no respiratory distress Abdominal Exam: normal bowel sounds, non tender, soft Juanita Friedman N.Stella Jun 17, 2016 13:02
--- NOTE | 2016-06-17 13:03 | Infectious Diseases Prog Note ---
Assessment/Plan Assessment/Plan 1. esbl e.coli uti, sepsis, fevers, leukocytosis, ? c.diff. - clinically improving - leukocytosis and fever resolved - day number 6 of amikacin and flagyl - check labs 2. The patient has history of sick sinus syndrome. 3. Dyslipidemia. 4. Hypertension. 5. Diabetes. 6. Chronic obstructive pulmonary disease. 7. Asthma. 8. Dysphagia. 9. History of urinary tract infection. 10. Elevated creatinine improved. 11. Anemia. 12. Continue treatment for diabetes and hypertension, per primary. 13. Dementia. 14. Dehydration. 15. Pacemaker. 16. Continue treatment per primary assessment consultant. 17. Allergy to codeine, erythromycin, meperidine, and penicillin. 18. Family history is noncontributory. 19. Social history is negative. 20. ugadarrama removed 21. MAR was noted. 22. Case was discussed with RN. 23. Case was discussed with patient. 24. continue treatment per primary and consultants 25. Wound care protocol. 26. d/w pt and answered questions 27. notes and record reviewed Subjective Constitutional: Reports: fatigue, other - feels better, Denies: fever Respiratory: Denies: shortness of breath Cardiovascular: Denies: chest pain Gastrointestinal/Abdominal: Denies: diarrhea, nausea, vomiting Genitourinary: Reports: other - no guadarrama Neurologic: Denies: headache Skin: Denies: rash Endocrine: Denies: feels warm Musculoskeletal: Denies: pain, stiffness Allergies: Coded Allergies: ERYTHROMYCIN BASE (Verified Allergy, Intermediate, 06/11/16) CODEINE (Verified Allergy, Unknown, 06/11/16) MEPERIDINE (Verified Allergy, Unknown, 06/11/16) PENICILLINS (Verified Allergy, Unknown, 06/11/16) Objective Vital Signs Last 24 Hour Vital Signs Date Time Temp Pulse Resp B/P Pulse Ox O2 Delivery O2 Flow Rate FiO2 06/17/16 11:26 97.1 66 14 130/64 97 Room Air 06/17/16 08:05 60 127/77 06/17/16 07:51 Room Air 06/17/16 07:51 97 Room Air 21 06/17/16 07:50 60 18 Room Air 21 06/17/16 07:33 97.0 60 14 127/67 97 Room Air 06/17/16 04:00 97.9 62 20 123/63 98 Nasal Cannula 2.0 06/17/16 00:00 98.2 64 20 136/67 100 Nasal Cannula 2.0 06/16/16 22:12 60 136/76 06/16/16 20:26 100 Nasal Cannula 2.0 28 06/16/16 20:26 Nasal Cannula 2.0 28 06/16/16 20:25 60 18 Nasal Cannula 2.0 28 06/16/16 19:00 98.6 64 20 136/76 99 Room Air 06/16/16 16:00 97.7 60 20 127/72 98 Room Air Height (Feet): 5 Height (Inches): 5.00 Weight (Pounds): 195 General Appearance: no acute distress HEENT: normocephalic, atraumatic, anicteric, mucous membranes moist, PERRL, EOMI, pharynx normal, supple, no JVD Respiratory/Chest: lungs clear, normal breath sounds, no respiratory distress, no accessory muscle use Cardiovascular: normal rate, regular rhythm, no gallop/murmur, no JVD Abdomen: normal bowel sounds, soft, non tender, no organomegaly, non distended Genitourinary: other - no guadarrama Extremities: no cyanosis Skin: no rash 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 Complete 06/11/16 14:30 Urine,Clean Catch Urine Culture - Final Escherichia Coli - Esbl Complete 06/11/16 16:00 Rectum VRE Culture - Final Enterococcus Faecalis - Vre Complete Laboratory Tests Test 06/17/16 04:35 White Blood Count 6.1 K/UL (4.8-10.8) Red Blood Count 3.80 M/UL (4.20-5.40) L Hemoglobin 10.4 G/DL (12.0-16.0) L Hematocrit 32.1 % (37.0-47.0) L Mean Corpuscular Volume 84 FL (80-99) Mean Corpuscular Hemoglobin 27.4 PG (27.0-31.0) Mean Corpuscular Hemoglobin Concent 32.5 G/DL (32.0-36.0) Red Cell Distribution Width 13.2 % (11.6-14.8) Platelet Count 178 K/UL (150-450) Mean Platelet Volume 7.1 FL (6.5-10.1) Neutrophils (%) (Auto) 64.7 % (45.0-75.0) Lymphocytes (%) (Auto) 21.5 % (20.0-45.0) Monocytes (%) (Auto) 10.1 % (1.0-10.0) H Eosinophils (%) (Auto) 2.3 % (0.0-3.0) Basophils (%) (Auto) 1.3 % (0.0-2.0) Sodium Level 139 mEQ/L (135-145) Potassium Level 3.4 mEQ/L (3.4-4.9) Chloride Level 100 mEQ/L (98-107) Carbon Dioxide Level 26 mEQ/L (20-30) Anion Gap 13 (5-15) Blood Urea Nitrogen 9 mg/dL (7-23) Creatinine 0.4 mg/dL (0.5-0.9) L Estimat Glomerular Filtration Rate mL/min (>60) Glucose Level 146 mg/dL (74-106) H Calcium Level 8.7 mg/dL (8.6-10.2) Total Bilirubin 0.7 mg/dL (0.0-1.2) Aspartate Amino Transf (AST/SGOT) 68 U/L (5-40) H Alanine Aminotransferase (ALT/SGPT) 78 U/L (3-33) H Alkaline Phosphatase 70 U/L (35-104) Total Protein 5.9 g/dL (6.6-8.7) L Albumin 2.6 g/dL (3.5-5.2) L Globulin 3.3 g/dL Albumin/Globulin Ratio 0.7 (1.0-2.7) L Current Medications Medications (Trade) Dose Ordered Sig/Joann Route PRN Reason Start Time Stop Time Status Last Admin Dose Admin Acetaminophen (Tylenol) 650 mg Q4H PRN ORAL Mild Pain / TEMP>101 06/14/16 12:30 07/14/16 12:29 06/17/16 08:20 Acetaminophen (Tylenol) 650 mg Q4H PRN RECTAL Mild Pain/Temp > 100.5 06/14/16 12:45 07/14/16 12:44 Albuterol/ Ipratropium (DuoNeb 0.5-3(2.5)mg/3ml) 3 ml Q4H PRN HHN Shortness of Breath 06/14/16 19:15 06/19/16 19:14 Amikacin Protocol (Amikacin pharmacy to dose) 1 ea DAILY PRN MISC Per rx protocol 06/14/16 13:00 07/14/16 12:59 Amikacin Sulfate/ Dextrose (Amikin/D5W) 114 ml @ 228 mls/hr Q36H IV 06/15/16 16:00 06/22/16 15:59 06/17/16 05:12 Atorvastatin Calcium (Lipitor) 10 mg BEDTIME ORAL 06/14/16 21:00 07/14/16 20:59 06/16/16 22:12 Dextrose (Dextrose 50%) STAT PRN IV Hypoglycemia 06/14/16 13:00 07/14/16 12:59 Docusate Sodium (Colace) 100 mg EVERY 12 HOURS ORAL 06/14/16 21:00 07/14/16 20:59 06/17/16 08:04 Ibuprofen (Advil) 200 mg Q4H PRN ORAL Mild Pain (Pain Scale 1-3) 06/14/16 14:45 07/14/16 14:44 Insulin Aspart (NovoLOG) BEFORE MEALS AND HS SUBQ 06/14/16 13:00 07/14/16 12:59 06/17/16 12:31 Metronidazole (Flagyl) 500 mg EVERY 8 HOURS ORAL 06/14/16 14:00 06/21/16 13:59 06/17/16 05:12 Ondansetron HCl (Zofran) 4 mg Q4H PRN IVP Nausea & Vomiting 06/14/16 12:45 07/14/16 12:44 Pantoprazole (Protonix) 40 mg DAILY ORAL 06/15/16 09:00 07/15/16 08:59 06/17/16 08:04 Rivaroxaban (Xarelto) 15 mg QPM ORAL 06/14/16 16:30 07/14/16 16:29 06/16/16 17:50 Verapamil HCl (Calan) 80 mg Q12HR ORAL 06/14/16 21:00 07/14/16 20:59 06/17/16 08:05 RAMÓN ALMARAZ Jun 17, 2016 13:03
--- NOTE | 2016-06-17 16:23 | Cardiac Electrophysiology PN ---
Assessment/Plan Assessment/Plan 1. Status post [employer] pacemaker with normal function. 2. Hypertension. Continue Verapamil 80 bid. 3. Diastolic CHF with EF 50-55%. Euvolemic 4. Bilateral acute lower extremity deep venous thrombosis, on Xarelto 15 mg daily 5. Hyperlipidemia. On Lipitor 10 6. UTI sepsis. On IV abx per ID DW RN Subjective Subjective Comfortable. Denies any chest pain or SOB. Objective Last 24 Hour Vital Signs Date Time Temp Pulse Resp B/P Pulse Ox O2 Delivery O2 Flow Rate FiO2 06/17/16 11:26 97.1 66 14 130/64 97 Room Air 06/17/16 08:05 60 127/77 06/17/16 07:51 Room Air 06/17/16 07:51 97 Room Air 21 06/17/16 07:50 60 18 Room Air 21 06/17/16 07:33 97.0 60 14 127/67 97 Room Air 06/17/16 04:00 97.9 62 20 123/63 98 Nasal Cannula 2.0 06/17/16 00:00 98.2 64 20 136/67 100 Nasal Cannula 2.0 06/16/16 22:12 60 136/76 06/16/16 20:26 100 Nasal Cannula 2.0 28 06/16/16 20:26 Nasal Cannula 2.0 28 06/16/16 20:25 60 18 Nasal Cannula 2.0 28 06/16/16 19:00 98.6 64 20 136/76 99 Room Air Intake and Output 06/16/16 06/17/16 19:00 07:00 Intake Total 540 ml 240 ml Balance 540 ml 240 ml Intake Oral 240 ml 240 ml IV Total 300 ml # Voids 2 6 Laboratory Tests Test 06/17/16 04:35 White Blood Count 6.1 K/UL (4.8-10.8) Red Blood Count 3.80 M/UL (4.20-5.40) L Hemoglobin 10.4 G/DL (12.0-16.0) L Hematocrit 32.1 % (37.0-47.0) L Mean Corpuscular Volume 84 FL (80-99) Mean Corpuscular Hemoglobin 27.4 PG (27.0-31.0) Mean Corpuscular Hemoglobin Concent 32.5 G/DL (32.0-36.0) Red Cell Distribution Width 13.2 % (11.6-14.8) Platelet Count 178 K/UL (150-450) Mean Platelet Volume 7.1 FL (6.5-10.1) Neutrophils (%) (Auto) 64.7 % (45.0-75.0) Lymphocytes (%) (Auto) 21.5 % (20.0-45.0) Monocytes (%) (Auto) 10.1 % (1.0-10.0) H Eosinophils (%) (Auto) 2.3 % (0.0-3.0) Basophils (%) (Auto) 1.3 % (0.0-2.0) Sodium Level 139 mEQ/L (135-145) Potassium Level 3.4 mEQ/L (3.4-4.9) Chloride Level 100 mEQ/L (98-107) Carbon Dioxide Level 26 mEQ/L (20-30) Anion Gap 13 (5-15) Blood Urea Nitrogen 9 mg/dL (7-23) Creatinine 0.4 mg/dL (0.5-0.9) L Estimat Glomerular Filtration Rate mL/min (>60) Glucose Level 146 mg/dL (74-106) H Calcium Level 8.7 mg/dL (8.6-10.2) Total Bilirubin 0.7 mg/dL (0.0-1.2) Aspartate Amino Transf (AST/SGOT) 68 U/L (5-40) H Alanine Aminotransferase (ALT/SGPT) 78 U/L (3-33) H Alkaline Phosphatase 70 U/L (35-104) Total Protein 5.9 g/dL (6.6-8.7) L Albumin 2.6 g/dL (3.5-5.2) L Globulin 3.3 g/dL Albumin/Globulin Ratio 0.7 (1.0-2.7) L Microbiology Date/Time Source Procedure Growth Status 06/15/16 05:30 Blood Blood Culture - Preliminary NO GROWTH AFTER 24 HOURS Resulted 06/15/16 05:10 Blood Blood Culture - Preliminary NO GROWTH AFTER 24 HOURS Resulted Objective HEAD AND NECK: No JVD. LUNGS: Clear. CARDIOVASCULAR: Regular S1 and S2 with no gallop or murmur. The pacemaker is left subclavian. ABDOMEN: Soft, but obese. EXTREMITIES: 1+ pitting edema. JAMAAL LAWS Jun 17, 2016 16:23
[2016-06-17] MEDS ORDERED: Xarelto 10mg tab ORAL SCH (16:30)
--- NOTE | 2016-06-17 17:32 | Internal Med Progress Note ---
Subjective Date of Service: Jun 17, 2016 Physician Name Colin,Chema Attending Physician Zion Echevarria MD Current Medications Medications (Trade) Dose Ordered Sig/Joann Route PRN Reason Start Time Stop Time Status Last Admin Dose Admin Acetaminophen (Tylenol) 650 mg Q4H PRN ORAL Mild Pain / TEMP>101 06/14/16 12:30 07/14/16 12:29 06/17/16 08:20 Acetaminophen (Tylenol) 650 mg Q4H PRN RECTAL Mild Pain/Temp > 100.5 06/14/16 12:45 07/14/16 12:44 Albuterol/ Ipratropium (DuoNeb 0.5-3(2.5)mg/3ml) 3 ml Q4H PRN HHN Shortness of Breath 06/14/16 19:15 06/19/16 19:14 Amikacin Protocol (Amikacin pharmacy to dose) 1 ea DAILY PRN MISC Per rx protocol 06/14/16 13:00 07/14/16 12:59 Amikacin Sulfate/ Dextrose (Amikin/D5W) 114 ml @ 228 mls/hr Q36H IV 06/15/16 16:00 06/22/16 15:59 06/17/16 05:12 Atorvastatin Calcium (Lipitor) 10 mg BEDTIME ORAL 06/14/16 21:00 07/14/16 20:59 06/16/16 22:12 Dextrose (Dextrose 50%) STAT PRN IV Hypoglycemia 06/14/16 13:00 07/14/16 12:59 Docusate Sodium (Colace) 100 mg EVERY 12 HOURS ORAL 06/14/16 21:00 07/14/16 20:59 06/17/16 08:04 Ibuprofen (Advil) 200 mg Q4H PRN ORAL Mild Pain (Pain Scale 1-3) 06/14/16 14:45 07/14/16 14:44 Insulin Aspart (NovoLOG) BEFORE MEALS AND HS SUBQ 06/14/16 13:00 07/14/16 12:59 06/17/16 12:31 Metronidazole (Flagyl) 500 mg EVERY 8 HOURS ORAL 06/14/16 14:00 06/21/16 13:59 06/17/16 14:46 Ondansetron HCl (Zofran) 4 mg Q4H PRN IVP Nausea & Vomiting 06/14/16 12:45 07/14/16 12:44 Pantoprazole (Protonix) 40 mg DAILY ORAL 06/15/16 09:00 07/15/16 08:59 06/17/16 08:04 Rivaroxaban (Xarelto) 15 mg QPM ORAL 06/14/16 16:30 07/14/16 16:29 06/16/16 17:50 Verapamil HCl (Calan) 80 mg Q12HR ORAL 06/14/16 21:00 07/14/16 20:59 06/17/16 08:05 Allergies: Coded Allergies: ERYTHROMYCIN BASE (Verified Allergy, Intermediate, 06/11/16) CODEINE (Verified Allergy, Unknown, 06/11/16) MEPERIDINE (Verified Allergy, Unknown, 06/11/16) PENICILLINS (Verified Allergy, Unknown, 06/11/16) ROS Limited/Unobtainable: No Constitutional: Reports: no symptoms HEENT: Reports: no symptoms Cardiovascular: Reports: no symptoms Respiratory: Reports: no symptoms Gastrointestinal/Abdominal: Reports: no symptoms Genitourinary: Reports: no symptoms Neurologic/Psychiatric: Reports: no symptoms Subjective 75 YO F admitted with altered mental status. Now Urinary tract infection. Cover for Int Med-Dr Echevarria. Await transfer to [facility]. Objective Last Vital Signs Date Time Temp Pulse Resp B/P Pulse Ox O2 Delivery O2 Flow Rate FiO2 06/17/16 11:26 97.1 66 14 130/64 97 Room Air 06/17/16 07:51 21 06/17/16 04:00 2.0 Laboratory Tests Test 06/17/16 04:35 White Blood Count 6.1 K/UL (4.8-10.8) Red Blood Count 3.80 M/UL (4.20-5.40) L Hemoglobin 10.4 G/DL (12.0-16.0) L Hematocrit 32.1 % (37.0-47.0) L Mean Corpuscular Volume 84 FL (80-99) Mean Corpuscular Hemoglobin 27.4 PG (27.0-31.0) Mean Corpuscular Hemoglobin Concent 32.5 G/DL (32.0-36.0) Red Cell Distribution Width 13.2 % (11.6-14.8) Platelet Count 178 K/UL (150-450) Mean Platelet Volume 7.1 FL (6.5-10.1) Neutrophils (%) (Auto) 64.7 % (45.0-75.0) Lymphocytes (%) (Auto) 21.5 % (20.0-45.0) Monocytes (%) (Auto) 10.1 % (1.0-10.0) H Eosinophils (%) (Auto) 2.3 % (0.0-3.0) Basophils (%) (Auto) 1.3 % (0.0-2.0) Sodium Level 139 mEQ/L (135-145) Potassium Level 3.4 mEQ/L (3.4-4.9) Chloride Level 100 mEQ/L (98-107) Carbon Dioxide Level 26 mEQ/L (20-30) Anion Gap 13 (5-15) Blood Urea Nitrogen 9 mg/dL (7-23) Creatinine 0.4 mg/dL (0.5-0.9) L Estimat Glomerular Filtration Rate mL/min (>60) Glucose Level 146 mg/dL (74-106) H Calcium Level 8.7 mg/dL (8.6-10.2) Total Bilirubin 0.7 mg/dL (0.0-1.2) Aspartate Amino Transf (AST/SGOT) 68 U/L (5-40) H Alanine Aminotransferase (ALT/SGPT) 78 U/L (3-33) H Alkaline Phosphatase 70 U/L (35-104) Total Protein 5.9 g/dL (6.6-8.7) L Albumin 2.6 g/dL (3.5-5.2) L Globulin 3.3 g/dL Albumin/Globulin Ratio 0.7 (1.0-2.7) L Microbiology Date/Time Source Procedure Growth Status 06/15/16 05:30 Blood Blood Culture - Preliminary NO GROWTH AFTER 24 HOURS Resulted 06/15/16 05:10 Blood Blood Culture - Preliminary NO GROWTH AFTER 24 HOURS Resulted Intake and Output 06/16/16 06/17/16 19:00 07:00 Intake Total 540 ml 240 ml Balance 540 ml 240 ml Intake Oral 240 ml 240 ml IV Total 300 ml # Voids 2 6 Objective General Appearance: WD/WN, moderate distress, obese EENT: PERRL/EOMI, normal ENT inspection Neck: non-tender, normal alignment, supple Cardiovascular: normal peripheral pulses, normal rate, regular rhythm, no gallop/murmur, no JVD Respiratory/Chest: chest wall non-tender, lungs clear, normal breath sounds, no respiratory distress, no accessory muscle use Abdomen: no organomegaly, no mass, decreased bowel sounds, guarding, tender Extremities: normal range of motion 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 (2) Renal failure Assessment & Plan: Pre renal. ?dehydration? Cont IV fluids. (3) Sick sinus syndrome Assessment & Plan: S/P pacemaker - normal interrogation. See cardiology note. (4) UTI (urinary tract infection) Assessment & Plan: ESBL E. Coli. D/C cefepime. Continue flagyl and amikacin per ID. (5) Altered mental status Assessment & Plan: Due to UTI. (6) Toxic metabolic encephalopathy (7) Pacemaker (8) Sepsis Assessment & Plan: See ID note. (9) Hypertension Assessment & Plan: Cont verapamil. (10) COPD (chronic obstructive pulmonary disease) (11) Hypercholesterolemia (12) Dysphagia (13) Leukocytosis (14) Nausea & vomiting Assessment & Plan: Start zofran. (15) Pancreatitis, acute Assessment & Plan: MRCP cancelled due to pacemaker - see GI consult; Dr Massey (16) Elevated liver function tests Status: stable Assessment/Plan Discharge planning: [facility] CHEMA Grace Jun 17, 2016 17:32
[2016-06-17] MEDS: Xarelto 15mg tab ORAL SCH (17:35)
[2016-06-17] MEDS ORDERED: Amikacin Rx to dose MISC (17:36)
[2016-06-17] MEDS ORDERED: FLAGYL500 MG ORAL (17:36)
--- NOTE | 2016-06-17 23:01 | Pulmonology Progress Note ---
Assessment/Plan Problems: (1) Sepsis (2) COPD (chronic obstructive pulmonary disease) (3) Toxic metabolic encephalopathy (4) Pacemaker (5) Functional quadriplegia (6) Hypertension Assessment/Plan continue IV antibiotic MRD urosepsis improving tolerating diet check electrolytes pace maker interrogated, titrate fio2 to sat of 92% dc planning Subjective ROS Limited/Unobtainable: Yes Constitutional: Reports: anorexia, chills, fatigue, fever Respiratory: Reports: dyspnea at rest, productive cough, shortness of breath, sputum Neurologic: Reports: confusion, numbness, weakness Skin: Reports: rash, ulcer Musculoskeletal: Reports: pain, stiffness, swelling Allergies: Coded Allergies: ERYTHROMYCIN BASE (Verified Allergy, Intermediate, 06/11/16) CODEINE (Verified Allergy, Unknown, 06/11/16) MEPERIDINE (Verified Allergy, Unknown, 06/11/16) PENICILLINS (Verified Allergy, Unknown, 06/11/16) Objective Last 24 Hour Vital Signs Date Time Temp Pulse Resp B/P Pulse Ox O2 Delivery O2 Flow Rate FiO2 06/17/16 21:31 60 141/74 06/17/16 20:40 Room Air 06/17/16 20:40 98 Room Air 21 06/17/16 20:40 60 18 Room Air 21 06/17/16 20:00 98.2 60 16 141/74 98 Room Air 06/17/16 16:00 98.1 68 16 103/40 96 Room Air 06/17/16 11:26 97.1 66 14 130/64 97 Room Air 06/17/16 08:05 60 127/77 06/17/16 07:51 Room Air 06/17/16 07:51 97 Room Air 21 06/17/16 07:50 60 18 Room Air 21 06/17/16 07:33 97.0 60 14 127/67 97 Room Air 06/17/16 04:00 97.9 62 20 123/63 98 Nasal Cannula 2.0 06/17/16 00:00 98.2 64 20 136/67 100 Nasal Cannula 2.0 Intake and Output 06/16/16 06/17/16 19:00 07:00 Intake Total 540 ml 240 ml Balance 540 ml 240 ml Intake Oral 240 ml 240 ml IV Total 300 ml # Voids 2 6 General Appearance: no acute distress HEENT: normocephalic, atraumatic, PERRL Respiratory/Chest: chest wall non-tender, decreased breath sounds, accessory muscle use, rhonchi Breasts: no masses Cardiovascular: normal peripheral pulses, normal rate, regular rhythm, no JVD Abdomen: normal bowel sounds, soft, non tender, no organomegaly Genitourinary: normal external genitalia Extremities: no cyanosis Skin: rash, lesions, ulcers Neurologic/Psychiatric: responsive, abnormal CN, motor weakness, disoriented Microbiology Date/Time Source Procedure Growth Status 06/15/16 05:30 Blood Blood Culture - Preliminary NO GROWTH AFTER 24 HOURS Resulted 06/15/16 05:10 Blood Blood Culture - Preliminary NO GROWTH AFTER 24 HOURS Resulted Laboratory Tests 06/17/16 04:35: White Blood Count 6.1, Red Blood Count 3.80L, Hemoglobin 10.4L, Hematocrit 32.1L , Mean Corpuscular Volume 84, Mean Corpuscular Hemoglobin 27.4, Mean Corpuscular Hemoglobin Concent 32.5, Red Cell Distribution Width 13.2, Platelet Count 178, Mean Platelet Volume 7.1, Neutrophils (%) (Auto) 64.7, Lymphocytes (% ) (Auto) 21.5, Monocytes (%) (Auto) 10.1H, Eosinophils (%) (Auto) 2.3, Basophils (%) (Auto) 1.3, Sodium Level 139, Potassium Level 3.4, Chloride Level 100, Carbon Dioxide Level 26, Anion Gap 13, Blood Urea Nitrogen 9, Creatinine 0.4L, Estimat Glomerular Filtration Rate , Glucose Level 146H, Calcium Level 8.7 , Total Bilirubin 0.7, Aspartate Amino Transf (AST/SGOT) 68H, Alanine Aminotransferase (ALT/SGPT) 78H, Alkaline Phosphatase 70, Total Protein 5.9L, Albumin 2.6L, Globulin 3.3, Albumin/Globulin Ratio 0.7L JONH RODRIGUEZ Jun 17, 2016 23:01
--- NOTE | 2016-06-19 14:50 | Discharge Summary ---
Discharge Summary Hospital Course Date of Admission Jun 11, 2016 at 14:37 Date of Discharge Jun 17, 2016 at 21:45 Admitting Diagnosis ALOC HPI Amol Serrano is a 75 year old female who was admitted on Jun 11, 2016 at 14: 37 for Altered Level Of Consciousness Hospital Course [id number] Discharge Discharge Disposition Patient was discharged to [facility] (04) Discharge Diagnoses: Delmi Graham NP Jun 19, 2016 14:50
--- NOTE | 2016-06-20 00:18 | Discharge Summary 2 SIG ---
DATE OF ADMISSION: 06/11/2016 DATE OF DISCHARGE: 06/17/2016 CONSULTANTS: 1. Chelsea Telles M.D. 2. Juve Mayes M.D. 3. Carlos Woody M.D. 4. Prabhjot Massey M.D. BRIEF HOSPITAL COURSE: The patient is a 75-year-old female with past medical history significant for sick sinus syndrome, status post pacemaker, dyslipidemia, hypertension, chronic obstructive pulmonary disease, and asthma, presented to the hospital from [facility] after she was noted to be in altered mental status. The patient was febrile and has been on Bactrim for urinary tract infection, however, symptoms has not improved and she became hypotensive, tachycardic, and hypoxemic. On evaluation at ED, the patient was assessed to have altered mental status, most likely secondary to toxic metabolic encephalopathy as well as sepsis, secondary to urinary tract infection. During hospital stay, she was followed by Infectious Disease specialist. Workup showed the patient has ESBL E. coli urinary tract infection and had elevated lactic acid consistent with sepsis syndrome. She has allergy to penicillin. Culture showed sensitivity to amikacin and was given amikacin and Flagyl. Dr. Mayes was consulted. The patient has [employer] pacemaker, interrogation done showed normal function. She had bilateral lower extremity DVT and Xarelto was continued. The patient has a history of dysphagia and had episodes of vomiting and nausea probably secondary to diabetes-induced gastroparesis. She has evidence of hypoalbuminemia, mild coagulopathy, and mild thrombocytopenia suggestive of chronic liver disease. Unfortunately, unable to do an MRCP as the patient has a pacemaker. She was given proton pump inhibitors and was given bowel regimen and Reglan for gastroparesis. LFTs downtrended. She was eventually transferred back to halfway. FINAL DIAGNOSES: 1. Acute toxic metabolic encephalopathy. 2. Sepsis, secondary to urinary tract infection with extended-spectrum beta-lactamases Escherichia coli. 3. Sick sinus syndrome, status post [employer] pacemaker with normal function. 4. Acute renal failure, prerenal, possibly from dehydration. 5. Deep vein thrombosis, on Xarelto. 6. Hypertension. 7. Chronic obstructive pulmonary disease. 8. Hypercholesterolemia. 9. Nausea and vomiting, possibly from diabetic gastroparesis. 10. Acute pancreatitis, unable to do MRCP. 11. Elevated liver transaminases. 12. Functional quadriplegia. 13. Dyslipidemia. 14. Uncontrolled diabetes mellitus with hyperglycemia. 15. Dysphagia. 16. Sacral pressure ulcer stage IV/unstageable, present on admission. Wilder Colin M.D. I have been assigned to dictate discharge summary on this account and I was not involved in the patient's management. Delmi Graham N.P. DR: REYNA JOB#: [id number] CC: BLANCA
== END 2016-06-17 21:45 | DRG 871 ==
LOC: EDBD 14:03 → EMR 14:26 → 2E 14:37 → EDBEDREQ 16:44 → 4E 06-14 01:45
DX: A41.9 Sepsis, unspecified organism (principal); G92 Toxic encephalopathy; N17.9 Acute kidney failure, unspecified; R53.2 Functional quadriplegia; K31.84 Gastroparesis; E87.1 Hypo-osmolality and hyponatremia; J44.9 Chronic obstructive pulmonary disease, unspecified; E11.43 Type 2 diabetes mellitus with diabetic autonomic (poly)neuropathy; N39.0 Urinary tract infection, site not specified; E86.0 Dehydration; I10 Essential (primary) hypertension; Z95.0 Presence of cardiac pacemaker; B96.20 Unspecified Escherichia coli [E. coli] as the cause of diseases classified elsewhere; Z16.12 Extended spectrum beta lactamase (ESBL) resistance; Z88.0 Allergy status to penicillin; Z86.718 Personal history of other venous thrombosis and embolism; Z79.01 Long term (current) use of anticoagulants; E78.00 Pure hypercholesterolemia, unspecified; R13.10 Dysphagia, unspecified; J45.909 Unspecified asthma, uncomplicated
CPT/HCPCS: 36415; 71010; 74000; 76700; 80048; 80053; 80076; 80150; 81003; 82150; 82248; 82378; 82550; 82553; 82607; 82746; 82962; 83036; 83540; 83550; 83605; 83690; 83735; 84100; 84484; 85007; 85025; 85610; 85730; 86705; 86709; 86803; 87040; 87081; 87086; 87181; 87340; 93005; 93306; 94664; 94760; J1815; J2405; J8499

== ENCOUNTER 2016-08-28 00:09 | Inpatient (IN) | payer MEDICARE, MEDICAID ==
[~2016-08-28] VITALS: Ht 165.1 cm; Wt 105.2 kg
[2016-08-28] VITALS (7 sets, daily range): BP systolic 91–108; BP diastolic 47–66
[~2016-08-28 00:09] MED LIST changes: +Amikacin Rx to dose MISC; +DUONEB 0.5-3(2.53 ML HHN; +FLAGYL500 MG ORAL; +GABAPENTIN300 MG ORAL; +IBUPROFEN600 MG ORAL
[2016-08-28] MEDS ORDERED: NS 1000ml 2,600 ML IVLG ONE (00:15)
[2016-08-28] MEDS ORDERED: Cefepime HCl 1 GM in NS 55 ML IV SCH (00:15)
--- NOTE | 2016-08-28 00:18 | Emergency Room Report ---
History of Present Illness General Chief Complaint: Fever Source: Patient Present Illness HPI This is a 75-year-old female with multiple medical problem. She presents with chief complaint of fever and weakness. Onset for last day or so. She was given Tylenol around 10:30 PM. She has cough and vomiting. No abdominal pain. Vomiting is nonbloody nonbilious. No diarrhea. Coughing is nonproductive in nature. Allergies: Coded Allergies: ERYTHROMYCIN BASE (Verified Allergy, Intermediate, 08/28/16) CODEINE (Verified Allergy, Unknown, 08/28/16) MEPERIDINE (Verified Allergy, Unknown, 08/28/16) PENICILLINS (Verified Allergy, Unknown, 08/28/16) Patient History Past Medical History: see triage record, old chart reviewed Past Surgical History: other Pertinent Family History: none Social History: Denies: smoking Last Menstrual Period: n/a Now: No Immunizations: other Reviewed Nursing Documentation: PMH: Agreed, PSxH: Agreed Nursing Documentation-PMH Past Medical History: No History, Except For Hx Hypertension: Yes Hx Pacemaker: Yes Hx Asthma: Yes Hx COPD: Yes Hx Diabetes: Yes Hx Cancer: No Hx Gastrointestinal Problems: Yes - gerd Hx Neurological Problems: Yes - neuralgia, SCHIZOPHRENIA Hx Dementia: Yes Review of Systems Constitutional: Reports: fever, weakness Eye: Denies: blurred vision, eye pain ENT: Denies: ear pain, nose congestion, throat swelling Respiratory: Reports: cough, Denies: shortness of breath Cardiovascular: Denies: chest pain, palpitations Gastrointestinal: Reports: nausea, vomiting, Denies: abdominal pain, diarrhea Musculoskeletal: Denies: back pain, joint pain Skin: Denies: rash Neurological: Denies: headache, numbness Endocrine: Denies: increased thirst, increased urine Hematologic/Lymphatic: Denies: easy bruising All Other Systems: negative except mentioned in HPI Physical Exam Vital Signs Date Time Temp Pulse Resp B/P Pulse Ox O2 Delivery O2 Flow Rate FiO2 08/28/16 00:09 99.9 85 33 145/113 96 Nasal Cannula 2.0 vitals with fever and hypertension Sp02 EP Interpretation: abnormal General Appearance: alert, mild distress, Chronically Ill Head: normocephalic, atraumatic Eyes: bilateral eye EOMI, bilateral eye PERRL ENT: hearing grossly normal, normal pharynx Neck: full range of motion, supple, no meningismus Respiratory: chest non-tender, normal breath sounds, rhonchi Cardiovascular #1: regular rate, rhythm, no murmur Gastrointestinal: normal bowel sounds, non tender, no mass, no organomegaly, no bruit, non-distended Musculoskeletal: back normal, normal range of motion Neurologic: alert Psychiatric: mood/affect normal Skin: warm/dry Procedures Critical Care Time Critical Care Time Critical care is mandated in this patient who presented with severe sepsis. Patient require my urgent intervention to attenuate the risks of metabolic collapse which may lead to cardiovascular collapse and . Critical care time is 35 minutes excluding any reportable procedure. Critical care time included evaluation, multiple reevaluation, looking at old charts, interpreting laboratory and diagnostic data, discussing case with patient and family and consultants, and charting. Medical Decision Making Diagnostic Impression: Primary Impression: Severe sepsis Additional Impressions: UTI (urinary tract infection) Qualified Codes: N30.00 - Acute cystitis without hematuria Infection due to ESBL-producing Escherichia coli Proteinuria Qualified Codes: R80.9 - Proteinuria, unspecified Nausea & vomiting Qualified Codes: R11.2 - Nausea with vomiting, unspecified ER Course Patient presents with fever up to 103 rectally here. She also has a urinary tract infection and severe sepsis. Mentation better and heart rate better after IV fluid. In June she grew out ESBL Escherichia coli that is resistant to multiple drugs. It is sensitive to Invanz. I gave her a dose here. No evidence of pneumonia, septic shock, TIA or CVA. Will admit for IV antibiotics. Prognosis poor. Lab Results Impression labs was high lactic acid EKG Diagnostic Results Rate: normal, tachycardiac Rhythm: NSR ST Segments: no acute changes Rhythm Strip Diag. Results EP Interpretation: yes Rate: 110 Rhythm: NSR, no PVC's, no ectopy Chest X-Ray Diagnostic Results EP Interpretation: Yes Findings: no consolidation, no effusion, no pneumothorax, no acute cardiopulmonary disease, other - No change from prior chest x-ray Number of Views: 1 Last Vital Signs Date Time Temp Pulse Resp B/P Pulse Ox O2 Delivery O2 Flow Rate FiO2 08/28/16 00:09 99.9 85 33 145/113 96 Nasal Cannula 2.0 Status: improved Disposition: ADMITTED INPATIENT Condition: Serious JAVY BAR M.D. August 28, 2016 00:18
[2016-08-28] MEDS ORDERED: OMEPRAZOLE20 M2 ORAL (00:21)
[2016-08-28] MEDS ORDERED: METFORMIN HCL500 M1 ORAL (00:21)
[2016-08-28 00:37] LABS: BASOPHILS % (AUTO) 0.6 % (0.0-2.0); EOSINOPHILS % (AUTO) 0.8 % (0.0-3.0); LYMPHOCYTES % (AUTO) 14.3 % (20.0-45.0); MEAN CORPUSCULAR HEMOGLOBIN 27.5 PG (27.0-31.0); MEAN CORPUSCULAR HGB CONC 32.4 G/DL (32.0-36.0); MEAN CORPUSCULAR VOLUME 85 FL (80-99); MEAN PLATELET VOLUME 7.3 FL (6.5-10.1); MONOCYTES % (AUTO) 1.3 % (1.0-10.0); PLATELET COUNT 172 K/UL (150-450); RED BLOOD COUNT 4.92 M/UL (4.20-5.40); RED CELL DISTRIBUTION WIDTH 13.1 % (11.6-14.8); WHITE BLOOD COUNT 4.8 K/UL (4.8-10.8)
[2016-08-28 00:49] LABS: PROTHROMBIN TIME 10.4 SEC (9.30-11.50)
[2016-08-28 00:53] LABS: ALANINE AMINOTRANSFERASE 29 U/L (3-33); ANION GAP 17 (5-15); ASPARTATE AMINO TRANSFERASE 38 U/L (5-40); CALCIUM 9.6 mg/dL (8.6-10.2); CARBON DIOXIDE 26 mEQ/L (20-30); CHLORIDE 97 mEQ/L (98-107); HEMOLYSIS 2; SODIUM 140 mEQ/L (135-145)
[2016-08-28 00:55] LABS: REFLEX LACTIC ACID YES OR NO YES
[2016-08-28 00:59] LABS: TROPONIN I < 0.30 ng/mL (<=0.30)
[2016-08-28 01:05] LABS: APPEARANCE,URINE SLIGHTLY CLOUDY; KETONES,URINE NEGATIVE (NEGATIVE); LEUKOCYTE ESTERASE ,URINE 3+ (NEGATIVE); NITRITE,URINE NEGATIVE (NEGATIVE); PH,URINE 5 (4.5-8.0); PROTEIN,URINE 2+ (NEGATIVE); UROBILINOGEN,URINE 1 MG/DL (0.0-1.0)
[2016-08-28 01:15] LABS: BACTERIA,URINE MANY /HPF; RBC,URINE 15-20 /HPF (0 - 2); SQUAMOUS EPITHELIAL CELL,UR FEW /LPF (NONE/OCC); WBC,URINE TNTC /HPF (0 - 2)
[2016-08-28] MEDS ORDERED: Ertapenem (INVanz) Inj ONE (01:27)
[2016-08-28] MEDS ORDERED: Acetaminophen 500mg (ES) tab ORAL ONE (01:30)
[2016-08-28] MEDS ORDERED: Ertapenem 1 GM in NS 55 ML IV ONE (01:30)
[2016-08-28 03:12] LABS: CKMB < 1.5 ng/mL (< 3.8)
[2016-08-28] MEDS ORDERED: Metoclopramide 10mg/2ml Inj IVP PRN (04:45)
[2016-08-28] MEDS ORDERED: LORazepam Inj 2mg/ml 1ml IV PRN (04:45)
[2016-08-28] MEDS ORDERED: Miralax 17gm pkt ORAL PRN (04:45)
[2016-08-28] MEDS ORDERED: Mylanta II UD 30ml ORAL PRN (04:45)
[2016-08-28] MEDS ORDERED: Nitroglycerin Subl 0.4mg tab (Bottle Of 25) SL PRN (04:45)
[2016-08-28] MEDS: HydrALAZINE 10mg Tab ORAL SCH ×3 (06:00→18:00)
[2016-08-28] MEDS ORDERED: Heparin 5000 units/ml inj SUBQ SCH (09:00)
[2016-08-28] MEDS ORDERED: Docusate 100mg cap ORAL SCH (09:00)
[2016-08-28] MEDS: Memantine 10mg tab ORAL SCH ×2 (09:29→18:27)
[2016-08-28] MEDS: Pantoprazole Inj IV SCH (09:29)
[2016-08-28 10:25] LABS: MEAN CORPUSCULAR HEMOGLOBIN 28.2 PG (27.0-31.0); MEAN CORPUSCULAR HGB CONC 32.4 G/DL (32.0-36.0); MEAN CORPUSCULAR VOLUME 87 FL (80-99); PLATELET COUNT 161 K/UL (150-450); RED BLOOD COUNT 4.16 M/UL (4.20-5.40); RED CELL DISTRIBUTION WIDTH 13.5 % (11.6-14.8); WHITE BLOOD COUNT 20.2 K/UL (4.8-10.8)
--- NOTE | 2016-08-28 10:25 | Diagnostic Imaging Report ---
Indications: Shortness of breath Technique: Portable AP chest Findings: Comparison: 06/11/2016 Inspiratory effort remains suboptimal. Linear densities persist in the right lower and left midlung regions, decreased in prominence. Cardiac silhouette remains enlarged. Left retrocardiac region better defined. Pulmonary vasculature are main be mildly redistributed. No pleural abnormalities demonstrated. Aortic arch calcification, left chest wall pacemaker again noted. IMPRESSION: Decrease in bilateral pulmonary subsegmental atelectasis Resolution of left retrocardiac atelectasis versus focal infiltrate Stable cardiomegaly with suggestion of mild pulmonary venous hypertension No new abnormality
[2016-08-28 10:44] LABS: ALANINE AMINOTRANSFERASE 28 U/L (3-33); ALBUMIN/GLOBULIN RATIO 1.1 (1.0-2.7); ANION GAP 15 (5-15); ASPARTATE AMINO TRANSFERASE 38 U/L (5-40); CALCIUM 8.9 mg/dL (8.6-10.2); CARBON DIOXIDE 26 mEQ/L (20-30); CHLORIDE 101 mEQ/L (98-107); CREATININE 1.4 mg/dL (0.5-0.9); HEMOLYSIS 1; MAGNESIUM 1.3 mg/dL (1.7-2.5); PHOSPHORUS 3.7 mg/dL (2.5-4.8); POTASSIUM 4.5 mEQ/L (3.4-4.9); SODIUM 142 mEQ/L (135-145); TOTAL PROTEIN 6.6 g/dL (6.6-8.7)
[2016-08-28 10:45] LABS: REFLEX LACTIC ACID YES OR NO YES
--- NOTE | 2016-08-28 11:41 | GI Initial Consult Note ---
History of Present Illness General Date patient seen: August 28, 2016 Time patient seen: 10:00 Reason for Hospitalization: Fever Referring physician: FATUMA ADAN Reason for Consultation: ABNORMAL LFTS Present Illness HPI This is a 75-year-old female with multiple medical problem. She presents with chief complaint of fever and weakness. Onset for last day or so. She was given Tylenol around 10:30 PM. She has cough and vomiting. No abdominal pain. Vomiting is nonbloody nonbilious. No diarrhea. Coughing is nonproductive in nature. GI CONSULT: This is a 75-year-old female, who has past medical history of cholecystectomy, history of diabetes for over 10 years. She has history of dysphagia and altered mental status in the past, was admitted to the hospital. She had an episode of vomiting yesterday, so GI consult was requested for evaluation. Home Meds Active Scripts Metronidazole* (FLAGYL*) 500 Mg Tablet, 500 MG ORAL EVERY 8 HOURS for 4 Days, TAB Prov:CHEMA VÁZQUEZ 06/17/16 [Amikacin Rx to dose] 1 EA MISC No Conflict Check, 1 EA MISC DAILY Y for 4 Days Prov:CHEMA VÁZQUEZ 06/17/16 Potassium Chloride (Potassium Chloride) 20 Meq/15 Ml Liqd, 10 MEQ ORAL DAILY, # 30 ML Prov:Fatuma Adan MD 09/07/15 Spironolactone (ALDACTONE) 25 Mg Tablet, 25 MG ORAL DAILY, #30 TAB Prov:Fatuma Adan MD 09/07/15 Rivaroxaban (XARELTO) 15 Mg Tablet, 15 MG NG BIAC, #10 TAB Prov:Fatuma Adan MD 09/07/15 Furosemide* (LASIX*) 40 Mg Tablet, 40 MG ORAL DAILY, #30 TAB Prov:Fatuma Adan MD 09/07/15 Pantoprazole* (PROTONIX*) 40 Mg Tablet.dr, 40 MG ORAL DAILY for 30 Days, TAB Prov:Feliciano Ricardo M.D. 05/01/15 Insulin Aspart (Novolog Flexpen) 100 Units/Ml Pen, 0 UNITS SUBQ BEFORE MEALS AND HS for 30 Days, EA Prov:Feliciano Ricardo M.D. 05/01/15 Gabapentin* (GABAPENTIN*) 100 Mg Capsule, 100 MG ORAL TID for 30 Days, CAP Prov:Feliciano Ricardo M.D. 05/01/15 Docusate Sodium* (COLACE*) 100 Mg Capsule, 100 MG ORAL EVERY 12 HOURS for 30 Days, CAP Prov:Feliciano Ricardo M.D. 05/01/15 Acetaminophen* (ACETAMINOPHEN 325MG TABLET*) 325 Mg Tablet, 650 MG ORAL Q4H Y for Mild Pain / TEMP>101 for 30 Days, TAB Prov:Feliciano Ricardo M.D. 05/01/15 Reported Medications Omeprazole (OMEPRAZOLE) 20 Mg Capsule.dr, 20 MG ORAL DAILY, CAP 08/28/16 Metformin Hcl* (METFORMIN HCL*) 500 Mg Tablet, 500 MG ORAL TWICE A DAY, TAB 08/28/16 Ibuprofen* (MOTRIN*) 600 Mg Tablet, 200 MG ORAL Q4HR Y for For Pain, #30 TAB 06/11/16 Gabapentin* (GABAPENTIN*) 300 Mg Capsule, 300 MG ORAL BID, CAP 06/11/16 Ipratropium/Albuterol Sulfate (DuoNeb 0.5-3(2.5)mg/3ml) 3 Ml Ampul.neb, 3 ML HHN , EA 06/11/16 Memantine Hcl* (NAMENDA*) 5 Mg Tablet, 5 MG ORAL BID, TAB 05/15/15 Hydralazine HCl (Hydralazine HCl) 10 Mg Tab, 25 MG ORAL EVERY 6 HOURS for For High Blood Pressure, TAB 05/15/15 Atorvastatin Calcium* (LIPITOR*) 10 Mg Tablet, 10 MG ORAL BEDTIME, TAB 04/26/15 Montelukast Sodium* (MONTELUKAST SODIUM*) 10 Mg Tablet, 10 MG ORAL DAILY, TAB 04/26/15 Verapamil Hcl* (CALAN SR*) 240 Mg Tablet.er, 250 MG ORAL DAILY, #30 CAP 0 Refills 04/26/15 Med list reviewed/reconciled: Yes Allergies: Coded Allergies: ERYTHROMYCIN BASE (Verified Allergy, Intermediate, 08/28/16) CODEINE (Verified Allergy, Unknown, 08/28/16) MEPERIDINE (Verified Allergy, Unknown, 08/28/16) PENICILLINS (Verified Allergy, Unknown, 08/28/16) Patient History Limited by: medical condition History Provided By: Medical Record [facility] Narrative Past Medical History: see triage record, old chart reviewed Past Surgical History: other Pertinent Family History: none Social History: Denies: smoking Last Menstrual Period: n/a Now: No Immunizations: other Reviewed Nursing Documentation: PMH: Agreed, PSxH: Agreed Nursing Documentation-PMH Past Medical History: No History, Except For Hx Hypertension: Yes Hx Pacemaker: Yes Hx Asthma: Yes Hx COPD: Yes Hx Diabetes: Yes Hx Cancer: No Hx Gastrointestinal Problems: Yes - gerd Hx Neurological Problems: Yes - neuralgia, SCHIZOPHRENIA Hx Dementia: Yes Review of Systems All Other Systems: negative except mentioned in HPI Physical Exam Vital Signs Date Time Temp Pulse Resp B/P Pulse Ox O2 Delivery O2 Flow Rate FiO2 08/28/16 00:09 99.9 85 33 145/113 96 Nasal Cannula 2.0 08/28/16 08:00 97 Sp02 EP Interpretation: reviewed Labs Laboratory Tests Test 08/28/16 00:22 08/28/16 00:44 08/28/16 01:56 08/28/16 09:50 White Blood Count 4.8 K/UL (4.8-10.8) 20.2 K/UL (4.8-10.8) #H Red Blood Count 4.92 M/UL (4.20-5.40) 4.16 M/UL (4.20-5.40) L Hemoglobin 13.5 G/DL (12.0-16.0) 11.7 G/DL (12.0-16.0) L Hematocrit 41.7 % (37.0-47.0) 36.2 % (37.0-47.0) L Mean Corpuscular Volume 85 FL (80-99) 87 FL (80-99) Mean Corpuscular Hemoglobin 27.5 PG (27.0-31.0) 28.2 PG (27.0-31.0) Mean Corpuscular Hemoglobin Concent 32.4 G/DL (32.0-36.0) 32.4 G/DL (32.0-36.0) Red Cell Distribution Width 13.1 % (11.6-14.8) 13.5 % (11.6-14.8) Platelet Count 172 K/UL (150-450) 161 K/UL (150-450) Mean Platelet Volume 7.3 FL (6.5-10.1) 8.0 FL (6.5-10.1) Neutrophils (%) (Auto) 83.0 % (45.0-75.0) H % (45.0-75.0) Lymphocytes (%) (Auto) 14.3 % (20.0-45.0) L % (20.0-45.0) Monocytes (%) (Auto) 1.3 % (1.0-10.0) % (1.0-10.0) Eosinophils (%) (Auto) 0.8 % (0.0-3.0) % (0.0-3.0) Basophils (%) (Auto) 0.6 % (0.0-2.0) % (0.0-2.0) Prothrombin Time 10.4 SEC (9.30-11.50) Prothromb Time International Ratio 1.0 (0.9-1.1) Activated Partial Thromboplast Time 24 SEC (23-33) Sodium Level 140 mEQ/L (135-145) 142 mEQ/L (135-145) Potassium Level 4.0 mEQ/L (3.4-4.9) 4.5 mEQ/L (3.4-4.9) Chloride Level 97 mEQ/L (98-107) L 101 mEQ/L (98-107) Carbon Dioxide Level 26 mEQ/L (20-30) 26 mEQ/L (20-30) Anion Gap 17 (5-15) H 15 (5-15) Blood Urea Nitrogen 28 mg/dL (7-23) H 34 mg/dL (7-23) H Creatinine 1.0 mg/dL (0.5-0.9) H 1.4 mg/dL (0.5-0.9) H Estimat Glomerular Filtration Rate mL/min (>60) mL/min (>60) Glucose Level 158 mg/dL (74-106) H 155 mg/dL (74-106) H Lactic Acid Level 4.60 mmol/L (0.66-2.22) H 3.80 mmol/L (0.66-2.22) H 3.00 mmol/L (0.66-2.22) H Calcium Level 9.6 mg/dL (8.6-10.2) 8.9 mg/dL (8.6-10.2) Total Bilirubin 0.6 mg/dL (0.0-1.2) 0.5 mg/dL (0.0-1.2) Aspartate Amino Transf (AST/SGOT) 38 U/L (5-40) 38 U/L (5-40) Alanine Aminotransferase (ALT/SGPT) 29 U/L (3-33) 28 U/L (3-33) Alkaline Phosphatase 147 U/L (35-104) H 117 U/L (35-104) H Total Creatine Kinase 38 U/L (26-140) Creatine Kinase MB < 1.5 ng/mL (< 3.8) Creatine Kinase MB Relative Index 3.9 Troponin I < 0.30 ng/mL (<=0.30) Total Protein 8.0 g/dL (6.6-8.7) 6.6 g/dL (6.6-8.7) Albumin 4.1 g/dL (3.5-5.2) 3.5 g/dL (3.5-5.2) Globulin 3.9 g/dL 3.1 g/dL Albumin/Globulin Ratio 1.0 (1.0-2.7) 1.1 (1.0-2.7) Urine Color Yellow Urine Appearance Slightly cloudy Urine pH 5 (4.5-8.0) Urine Specific [place] 1.010 (1.005-1.035) Urine Protein 2+ (NEGATIVE) H Urine Glucose (UA) Negative (NEGATIVE) Urine Ketones Negative (NEGATIVE) Urine Occult Blood 4+ (NEGATIVE) H Urine Nitrite Negative (NEGATIVE) Urine Bilirubin Negative (NEGATIVE) Urine Urobilinogen 1 MG/DL (0.0-1.0) H Urine Leukocyte Esterase 3+ (NEGATIVE) H Urine RBC 15-20 /HPF (0 - 2) H Urine WBC Tntc /HPF (0 - 2) H Urine Squamous Epithelial Cells Few /LPF (NONE/OCC) Urine Bacteria Many /HPF (NONE) H Neutrophils % (Manual) Pending Lymphocytes % (Manual) Pending Platelet Estimate Pending Platelet Morphology Pending Phosphorus Level 3.7 mg/dL (2.5-4.8) Magnesium Level 1.3 mg/dL (1.7-2.5) L General Appearance: no apparent distress, alert Head: normocephalic EENT: normal ENT inspection Neck: supple Respiratory: no respiratory distress, other - 2LNC Cardiovascular: normal rate Gastrointestinal: normal inspection, non tender, soft Rectal: deferred Musculoskeletal: back normal Neurologic: alert, other - sleepy Skin: normal inspection, normal color, no rash Lymphatic: normal inspection, no adenopathy Current Medications Current Medications Medications (Trade) Dose Ordered Sig/Joann Route PRN Reason Start Time Stop Time Status Last Admin Dose Admin Acetaminophen (Tylenol) 650 mg Q4H PRN ORAL fever 08/28/16 04:45 09/27/16 04:44 Al Hydroxide/Mg Hydroxide (Mylanta II) 30 ml Q6H PRN ORAL dyspepsia 08/28/16 04:45 09/27/16 04:44 Atorvastatin Calcium (Lipitor) 10 mg BEDTIME ORAL 08/28/16 21:00 09/27/16 20:59 Dextrose (Dextrose 50%) STAT PRN IV Hypoglycemia 08/28/16 04:45 09/27/16 04:44 Dextrose/Sodium Chloride (D5 0.45% NS) 1,000 ml @ 75 mls/hr [id number] IV 08/28/16 17:40 09/27/16 17:39 Diphenhydramine HCl (Benadryl) 25 mg Q6H PRN ORAL Itching/Pruritis 08/28/16 04:45 09/27/16 04:44 Docusate Sodium (Colace) 100 mg EVERY 12 HOURS ORAL 08/28/16 09:00 09/27/16 08:59 08/28/16 09:29 Ertapenem/Sodium Chloride (INVanz/Sodium Chloride) 55 ml @ 110 mls/hr Q24HRS IVPB 08/29/16 01:00 08/30/16 00:59 Gabapentin (Neurontin) 100 mg TID ORAL 08/28/16 09:00 09/27/16 08:59 08/28/16 09:29 Heparin Sodium (Porcine) (Heparin 5000 units/ml) 5,000 units EVERY 12 HOURS SUBQ 08/28/16 09:00 09/27/16 08:59 08/28/16 09:33 Hydralazine HCl (Apresoline) 25 mg EVERY 6 HOURS ORAL 08/28/16 06:00 09/27/16 05:59 Lorazepam (Ativan 2mg/ml 1ml) 1 mg EVERY 4 HOURS PRN IV agitation 08/28/16 04:45 09/04/16 04:44 Memantine (Namenda) 5 mg BID ORAL 08/28/16 09:00 09/27/16 08:59 08/28/16 09:29 Metoclopramide HCl (Reglan) 10 mg Q6H PRN IVP servere nausea 08/28/16 04:45 09/27/16 04:44 Nitroglycerin (Ntg) 0.4 mg Q5M X 3 DOSES PRN SL Prn Chest Pain 08/28/16 04:45 09/27/16 04:44 Ondansetron HCl (Zofran) 4 mg Q6H PRN IVP Nausea & Vomiting 08/28/16 04:45 09/27/16 04:44 Pantoprazole (Protonix) 40 mg DAILY IV 08/28/16 09:00 09/27/16 08:59 08/28/16 09:29 Polyethylene Glycol (Miralax) 17 gm HSPRN PRN ORAL Constipation 08/28/16 04:45 09/27/16 04:44 Rivaroxaban 15 mg 15 mg BIAC NG 08/28/16 06:30 09/27/16 06:29 UNV Sodium Chloride 1,000 ml @ 75 mls/hr [id number] IV 08/28/16 03:00 09/27/16 02:59 Temazepam (Restoril) 15 mg HSPRN PRN ORAL Insomnia 08/28/16 04:45 09/04/16 04:44 GI: Plan Problems: (1) Hepatitis C (2) Uncontrolled diabetes mellitus (3) Pacemaker (4) Altered mental status Plan Hep C positive >> outpt tx elevated alkaline phos DM induced gastroparesis >> reglan hold MRCP >> pt has pacemaker held Xarelto 20 mg for EGD/colonoscopy tomorrow, resume after procedure fu abdominal U/S monitor LFTs monitor H&H, transfuse prn ppi bowel regime tolerating diet fu labs pt on Xarelto (will have to stop x 48 hours prior GI procedures) Discussed with Dr. Massey. Thank you for referring this patient, we will follow. Juanita Friedman N.P. August 28, 2016 11:41
--- NOTE | 2016-08-28 13:06 | Consultation ---
History of Present Illness General Date patient seen: August 28, 2016 Chief Complaint: Fever Referring physician: FATUMA ADAN Reason for Consultation: ABNORMAL LFTS Present Illness HPI 75-year-old female with PMHx of asthma, pacemaker, dementia, senior living resident JOSE with chief complaint of fever and weakness. She was given Tylenol around 10:30 PM. She has cough and vomiting. No abdominal pain. Vomiting is nonbloody nonbilious. No diarrhea. Pt is confused and doesn't know why she is in hospital. Baseline mental status unknown. She had a temp of 103 in ER. Allergies: Coded Allergies: ERYTHROMYCIN BASE (Verified Allergy, Intermediate, 08/28/16) CODEINE (Verified Allergy, Unknown, 08/28/16) MEPERIDINE (Verified Allergy, Unknown, 08/28/16) PENICILLINS (Verified Allergy, Unknown, 08/28/16) Medication History Scheduled Atorvastatin Calcium* (Lipitor*), 10 MG ORAL BEDTIME, (Reported) Docusate Sodium* (Colace*), 100 MG ORAL EVERY 12 HOURS Furosemide* (Lasix*), 40 MG ORAL DAILY Gabapentin* (Gabapentin*), 100 MG ORAL TID Gabapentin* (Gabapentin*), 300 MG ORAL BID, (Reported) Hydralazine HCl (Hydralazine HCl), 25 MG ORAL EVERY 6 HOURS, (Reported) Insulin Aspart (Novolog Flexpen), 0 UNITS SUBQ BEFORE MEALS AND HS Memantine Hcl* (Namenda*), 5 MG ORAL BID, (Reported) Metformin Hcl* (Metformin Hcl*), 500 MG ORAL TWICE A DAY, (Reported) Metronidazole* (Flagyl*), 500 MG ORAL EVERY 8 HOURS Montelukast Sodium* (Montelukast Sodium*), 10 MG ORAL DAILY, (Reported) Omeprazole (Omeprazole), 20 MG ORAL DAILY, (Reported) Pantoprazole* (Protonix*), 40 MG ORAL DAILY Potassium Chloride (Potassium Chloride), 10 MEQ ORAL DAILY Rivaroxaban (Xarelto), 15 MG NG BIAC Spironolactone (Aldactone), 25 MG ORAL DAILY Verapamil Hcl* (Calan Sr*), 250 MG ORAL DAILY, (Reported) Scheduled PRN Acetaminophen* (Acetaminophen 325MG Tablet*), 650 MG ORAL Q4H PRN for Mild Pain / TEMP>101 Ibuprofen* (Motrin*), 200 MG ORAL Q4HR PRN for For Pain, (Reported) [Amikacin Rx to dose], 1 EA MISC DAILY PRN Miscellaneous Medications Ipratropium/Albuterol Sulfate (DuoNeb 0.5-3(2.5)mg/3ml), 3 ML HHN, (Reported) Patient History Healthcare decision maker Resuscitation status Full Code Advanced Directive on File Past Medical/Surgical History Past Medical/Surgical History: (1) COPD (chronic obstructive pulmonary disease) (2) Gout (3) Hypertension (4) Hepatitis C Physical Exam General Appearance: WD/WN Lines, tubes and drains: peripheral HEENT: normocephalic, atraumatic Neck: non-tender, normal alignment Respiratory/Chest: chest wall non-tender, lungs clear Cardiovascular/Chest: normal peripheral pulses Genitourinary/Rectal: normal genital exam Extremities: normal range of motion Skin Exam: normal pigmentation 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 Last 24 Hour Vital Signs Date Time Temp Pulse Resp B/P Pulse Ox O2 Delivery O2 Flow Rate FiO2 08/28/16 12:00 97.0 109 20 108/58 Nasal Cannula 2.0 100 08/28/16 08:00 98.2 115 20 93/66 Nasal Cannula 2.0 97 08/28/16 06:00 100/47 08/28/16 04:00 119 08/28/16 04:00 119 08/28/16 03:52 98.1 104 19 100/47 99 Nasal Cannula 4.0 08/28/16 02:32 100.0 101 26 100/65 100 Nasal Cannula 2.0 08/28/16 02:28 100.0 08/28/16 01:59 100.0 101 26 100/65 100 Nasal Cannula 2.0 08/28/16 01:06 103.2 124 30 108/49 100 Nasal Cannula 2.0 08/28/16 00:09 99.9 85 33 145/113 96 Nasal Cannula 2.0 Intake and Output 08/27/16 08/28/16 19:00 07:00 Intake Total 1055 ml Output Total 250 ml Balance 805 ml Intake IV Total 1055 ml Output Urine Total 250 ml # Bowel Movements 1 Laboratory Tests Test 08/28/16 00:22 08/28/16 00:44 08/28/16 01:56 08/28/16 09:50 White Blood Count 4.8 K/UL (4.8-10.8) 20.2 K/UL (4.8-10.8) #H Red Blood Count 4.92 M/UL (4.20-5.40) 4.16 M/UL (4.20-5.40) L Hemoglobin 13.5 G/DL (12.0-16.0) 11.7 G/DL (12.0-16.0) L Hematocrit 41.7 % (37.0-47.0) 36.2 % (37.0-47.0) L Mean Corpuscular Volume 85 FL (80-99) 87 FL (80-99) Mean Corpuscular Hemoglobin 27.5 PG (27.0-31.0) 28.2 PG (27.0-31.0) Mean Corpuscular Hemoglobin Concent 32.4 G/DL (32.0-36.0) 32.4 G/DL (32.0-36.0) Red Cell Distribution Width 13.1 % (11.6-14.8) 13.5 % (11.6-14.8) Platelet Count 172 K/UL (150-450) 161 K/UL (150-450) Mean Platelet Volume 7.3 FL (6.5-10.1) 8.0 FL (6.5-10.1) Neutrophils (%) (Auto) 83.0 % (45.0-75.0) H % (45.0-75.0) Lymphocytes (%) (Auto) 14.3 % (20.0-45.0) L % (20.0-45.0) Monocytes (%) (Auto) 1.3 % (1.0-10.0) % (1.0-10.0) Eosinophils (%) (Auto) 0.8 % (0.0-3.0) % (0.0-3.0) Basophils (%) (Auto) 0.6 % (0.0-2.0) % (0.0-2.0) Prothrombin Time 10.4 SEC (9.30-11.50) Prothromb Time International Ratio 1.0 (0.9-1.1) Activated Partial Thromboplast Time 24 SEC (23-33) Sodium Level 140 mEQ/L (135-145) 142 mEQ/L (135-145) Potassium Level 4.0 mEQ/L (3.4-4.9) 4.5 mEQ/L (3.4-4.9) Chloride Level 97 mEQ/L (98-107) L 101 mEQ/L (98-107) Carbon Dioxide Level 26 mEQ/L (20-30) 26 mEQ/L (20-30) Anion Gap 17 (5-15) H 15 (5-15) Blood Urea Nitrogen 28 mg/dL (7-23) H 34 mg/dL (7-23) H Creatinine 1.0 mg/dL (0.5-0.9) H 1.4 mg/dL (0.5-0.9) H Estimat Glomerular Filtration Rate mL/min (>60) mL/min (>60) Glucose Level 158 mg/dL (74-106) H 155 mg/dL (74-106) H Lactic Acid Level 4.60 mmol/L (0.66-2.22) H 3.80 mmol/L (0.66-2.22) H 3.00 mmol/L (0.66-2.22) H Calcium Level 9.6 mg/dL (8.6-10.2) 8.9 mg/dL (8.6-10.2) Total Bilirubin 0.6 mg/dL (0.0-1.2) 0.5 mg/dL (0.0-1.2) Aspartate Amino Transf (AST/SGOT) 38 U/L (5-40) 38 U/L (5-40) Alanine Aminotransferase (ALT/SGPT) 29 U/L (3-33) 28 U/L (3-33) Alkaline Phosphatase 147 U/L (35-104) H 117 U/L (35-104) H Total Creatine Kinase 38 U/L (26-140) Creatine Kinase MB < 1.5 ng/mL (< 3.8) Creatine Kinase MB Relative Index 3.9 Troponin I < 0.30 ng/mL (<=0.30) Total Protein 8.0 g/dL (6.6-8.7) 6.6 g/dL (6.6-8.7) Albumin 4.1 g/dL (3.5-5.2) 3.5 g/dL (3.5-5.2) Globulin 3.9 g/dL 3.1 g/dL Albumin/Globulin Ratio 1.0 (1.0-2.7) 1.1 (1.0-2.7) Urine Color Yellow Urine Appearance Slightly cloudy Urine pH 5 (4.5-8.0) Urine Specific [place] 1.010 (1.005-1.035) Urine Protein 2+ (NEGATIVE) H Urine Glucose (UA) Negative (NEGATIVE) Urine Ketones Negative (NEGATIVE) Urine Occult Blood 4+ (NEGATIVE) H Urine Nitrite Negative (NEGATIVE) Urine Bilirubin Negative (NEGATIVE) Urine Urobilinogen 1 MG/DL (0.0-1.0) H Urine Leukocyte Esterase 3+ (NEGATIVE) H Urine RBC 15-20 /HPF (0 - 2) H Urine WBC Tntc /HPF (0 - 2) H Urine Squamous Epithelial Cells Few /LPF (NONE/OCC) Urine Bacteria Many /HPF (NONE) H Neutrophils % (Manual) Pending Lymphocytes % (Manual) Pending Platelet Estimate Pending Platelet Morphology Pending Phosphorus Level 3.7 mg/dL (2.5-4.8) Magnesium Level 1.3 mg/dL (1.7-2.5) L Height (Feet): 5 Height (Inches): 6.00 Weight (Pounds): 222 Medications Current Medications Medications (Trade) Dose Ordered Sig/Joann Route PRN Reason Start Time Stop Time Status Last Admin Dose Admin Acetaminophen (Tylenol) 650 mg Q4H PRN ORAL fever 08/28/16 04:45 09/27/16 04:44 Al Hydroxide/Mg Hydroxide (Mylanta II) 30 ml Q6H PRN ORAL dyspepsia 08/28/16 04:45 09/27/16 04:44 Atorvastatin Calcium (Lipitor) 10 mg BEDTIME ORAL 08/28/16 21:00 09/27/16 20:59 Dextrose (Dextrose 50%) STAT PRN IV Hypoglycemia 08/28/16 04:45 09/27/16 04:44 Dextrose/Sodium Chloride (D5 0.45% NS) 1,000 ml @ 75 mls/hr [id number] IV 08/28/16 17:40 09/27/16 17:39 Diphenhydramine HCl (Benadryl) 25 mg Q6H PRN ORAL Itching/Pruritis 08/28/16 04:45 09/27/16 04:44 Docusate Sodium (Colace) 100 mg THREE TIMES A DAY ORAL 08/28/16 13:00 09/27/16 12:59 Ertapenem/Sodium Chloride (INVanz/Sodium Chloride) 55 ml @ 110 mls/hr Q24HRS IVPB 08/29/16 01:00 08/30/16 00:59 Gabapentin (Neurontin) 100 mg TID ORAL 08/28/16 09:00 09/27/16 08:59 08/28/16 09:29 Heparin Sodium (Porcine) (Heparin 5000 units/ml) 5,000 units EVERY 12 HOURS SUBQ 08/28/16 09:00 09/27/16 08:59 08/28/16 09:33 Hydralazine HCl (Apresoline) 25 mg EVERY 6 HOURS ORAL 08/28/16 06:00 09/27/16 05:59 Lorazepam (Ativan 2mg/ml 1ml) 1 mg EVERY 4 HOURS PRN IV agitation 08/28/16 04:45 09/04/16 04:44 Magnesium Sulfate (Magnesium Sulfate 1gm/100ml) 100 ml @ 100 mls/hr Q1H IVPB 08/28/16 12:00 08/28/16 13:59 08/28/16 12:10 Memantine (Namenda) 5 mg BID ORAL 08/28/16 09:00 09/27/16 08:59 08/28/16 09:29 Metoclopramide HCl (Reglan) 10 mg Q6H PRN IVP servere nausea 08/28/16 04:45 09/27/16 04:44 Nitroglycerin (Ntg) 0.4 mg Q5M X 3 DOSES PRN SL Prn Chest Pain 08/28/16 04:45 09/27/16 04:44 Ondansetron HCl (Zofran) 4 mg Q6H PRN IVP Nausea & Vomiting 08/28/16 04:45 09/27/16 04:44 Pantoprazole (Protonix) 40 mg DAILY IV 08/28/16 09:00 09/27/16 08:59 08/28/16 09:29 Polyethylene Glycol (Miralax) 17 gm HSPRN PRN ORAL Constipation 08/28/16 04:45 09/27/16 04:44 Polyethylene Glycol 17 gm 17 gm BEDTIME ORAL 08/28/16 21:00 09/27/16 20:59 Rivaroxaban 15 mg 15 mg BIAC NG 08/28/16 06:30 09/27/16 06:29 UNV Sodium Chloride 1,000 ml @ 75 mls/hr [id number] IV 08/28/16 03:00 09/27/16 02:59 Temazepam (Restoril) 15 mg HSPRN PRN ORAL Insomnia 08/28/16 04:45 09/04/16 04:44 Assessment/Plan Problem List: (1) Encephalopathy acute ICD Codes: G93.40 - Encephalopathy, unspecified SNOMED: 1279057 (2) Severe sepsis ICD Codes: A41.9 - Sepsis, unspecified organism; R65.20 - Severe sepsis without septic shock SNOMED: 77503344 (3) COPD (chronic obstructive pulmonary disease) ICD Codes: J44.9 - Chronic obstructive pulmonary disease, unspecified SNOMED: 17517451 (4) Gout ICD Codes: M10.9 - Gout, unspecified SNOMED: 18314708 (5) Hypertension ICD Codes: I10 - Essential (primary) hypertension SNOMED: 99330690 (6) Pacemaker ICD Codes: Z95.0 - Presence of cardiac pacemaker SNOMED: 727437832 (7) Hepatitis C ICD Codes: B19.20 - Unspecified viral hepatitis C without hepatic coma SNOMED: 35648822 Assessment/Plan lind culture broad spectrum antibiotics iv fluids swallow study monitor in teli check electrolytes. JONH RODRIGUEZ August 28, 2016 13:06
--- NOTE | 2016-08-28 13:14 | Diagnostic Imaging Report ---
Indications: Abdominal pain, elevated renal and hepatic function tests Technique: Transabdominal real-time grayscale and duplex Doppler imaging of the upper abdomen and retroperitoneum was performed. Findings: Comparison: Abdominal ultrasound of 06/16/2016; abdominopelvic CT scan 08/29/2015. Liver normal size and surface contour, diffuse coarsening of parenchymal echogenicity. No focal lesions. Gallbladder not identified. Sonographic Jesus sign reported as negative. Bile ducts normal caliber. Common bile duct 7 mm. Pancreas head and body unremarkable; tail obscured. Spleen unremarkable. Right kidney contains several circumscribed anechoic cortical foci up to 2.7 cm, several small nodular non-shadowing echogenic foci up to 7 mm, and demonstrates very mild distention of its collecting system.. Left kidney contains several circumscribed anechoic cortical foci up to 2.5 cm, one or more small nodular non-shadowing echogenic foci up to 8 mm. Abdominal aorta, intrahepatic portion of inferior vena cava patent, normal caliber. Duplex Doppler imaging demonstrates antegrade flow in splenic, portal, hepatic veins. No ascites. IMPRESSION: Coarsened liver echotexture compatible with chronic hepatocellular disease, nonspecific. Nonvisualization of gallbladder compatible with previous cholecystectomy Pancreatic tail obscured Mild right renal collecting system dilation, nonspecific, stable. Bilateral renal cortical cysts Bilateral renal echogenic non-shadowing foci--stones versus angiomyolipomas versus other nonspecific specular reflectors. 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
[2016-08-28 13:26] LABS: BAND NEUTROPHILS % (MANUAL) 9 % (0-8); BASOPHILS % (MANUAL) 1 % (0-2); EOSINOPHILS % (MANUAL) 0 % (0-3); LYMPHOCYTES % (MANUAL) 8 % (20-45); NEUTROPHILS % (MANUAL) 74 % (45-75); PLATELET ESTIMATE ADEQUATE; PLATELET MORPHOLOGY NORMAL; TOTAL CELLS COUNTED 100
[2016-08-28 13:27] LABS: HYPOCHROMASIA 1+
[2016-08-28] MEDS: Docusate 100mg cap ORAL SCH ×2 (14:32→18:00)
--- NOTE | 2016-08-28 14:54 | Consultation ---
Consult Note Consult Note ID Dic # [id number] Assessment/Plan A: Sepsis leukocytosis Abd pain probable UTI ? Pna P : CT of Abd w cont when Cr improves FAHAD SMITH M.D. August 28, 2016 14:54
[2016-08-28] MEDS ORDERED: Nulytely 4L ORAL ONE (16:00)
[2016-08-28] MEDS ORDERED: Bisacodyl EC 5mg tab ORAL ONE (16:00)
--- NOTE | 2016-08-28 16:48 | History & Physical ---
History and Physical History & Physicial Dictated for Int Med-Dr Echevarria no. [id number]. CHEMA VÁZQUEZ August 28, 2016 16:48
[2016-08-28] MEDS: D5 1/2NS 1,000 ML IV SCH (18:26)
[2016-08-28] MEDS: Miralax 17gm pkt ORAL SCH (21:04)
--- NOTE | 2016-08-28 21:31 | Consultation ---
DATE OF CONSULTATION: INFECTIOUS DISEASE CONSULT CONSULTING PHYSICIAN: Kaushal Chaney M.D. REFERRING PHYSICIAN: Chelsae Telles M.D. REASON FOR CONSULTATION: Evaluation of the patient for sepsis and antibiotic management. HISTORY OF PRESENT ILLNESS: The patient is a 75-year-old female with multiple medical problems, as listed below, who was admitted to this medical center because of the fever, general weakness, abdominal pain, and cough. The patient was found to have leukocytosis of 20,000. An Infectious Disease consultation has been requested for further evaluation of the patient and antibiotic management. PAST MEDICAL HISTORY: 1. History of recent ESBL E. coli urinary tract infection. 2. Sick sinus syndrome. 3. Hyperlipidemia. 4. Hypertension. 5. Diabetes. 6. COPD. 7. Dysphagia. 8. Anemia. 9. Status post pacemaker placement. MEDICATIONS: Ertapenem. ALLERGIES: Erythromycin, meperidine, and penicillin. FAMILY HISTORY: Noncontributory. REVIEW OF SYSTEMS: HEENT: No recent change in vision or hearing. Pulmonary: The patient has cough with mild sputum production times few days. Cardiovascular: No chest pain or palpitations. Gastrointestinal/Abdomen: As mentioned above. The patient has lower abdominal pain x1 day. Genitourinary: No dysuria. Musculoskeletal: The patient is unable to ambulate due to DJD. PHYSICAL EXAMINATION: VITAL SIGNS: Temperature 98 degrees, blood pressure 108/58, pulse 86, and respiratory rate 18. T-max 103.2 degrees. HEENT: Mild pale conjunctivae. No icterus. NECK: No lymphadenopathy. CHEST: Coarse breathing sounds. HEART: S1 and S2. ABDOMEN: Obese. The patient has abdominal tenderness in all four quadrants mostly on the liver quadrants with [id number] rebound. EXTREMITIES: No cyanosis. NEUROLOGIC: Awake and alert. LABORATORY DATA: BUN 34 and creatinine 1.4. White blood cells 20, hemoglobin 11, and platelets 161,000. Hepatitis C antibody is positive from two months ago. Ultrasound of the abdomen suggestive of chronic hepatocellular disease status post cholecystectomy. Chest x-ray noted pulmonary atelectasis. ASSESSMENT: This patient is a 75-year-old female with multiple medical problems, who has been admitted to this medical center for fever and leukocytosis. The patient has lower abdominal pain and some cough. The patient has a history of Escherichia coli urinary tract infection. It is possible the patient have recurrent urinary tract infection bacteremia, however, the source of intraabdominal abscess needs to be considered. PLAN: 1. We will continue the patient on IV Invanz. 2. Monitor CBC. 3. Monitor BMP. 4. Monitor cultures (blood, urine, and sputum). 5. CT scan of the abdomen when the patient's renal function improves. 6. Monitor chest x-ray. 7. Based on the patient's clinical course and laboratories, we will do further recommendations. Thank you, Dr. Telles, for allowing me to participate in the care of this patient. I will follow the patient with you during this hospitalization. Kaushal Chaney M.D. DR: NAHEED JOB#: [id number] CC:
--- NOTE | 2016-08-28 22:16 | History and Physical Report ---
DATE OF ADMISSION: 08/28/[address] Echevarria. CHIEF COMPLAINT: The patient is a 75-year-old, female, who presents with chief complaint of fever and generalized weakness. HISTORY OF PRESENT ILLNESS: The patient is a resident of [facility]. According to staff at [facility], the patient began to experience fevers of up to 101 degrees Fahrenheit. The patient also has had a nonproductive cough. The patient had vomiting a couple of times. The patient presented to [place] emergency room. The patient was found to have urinary tract infection. The patient was admitted for urinary tract infection to rule out sepsis. PAST MEDICAL HISTORY: Significant for. 1. Sick sinus syndrome. 2. Hypercholesterolemia. 3. Hypertension. 4. Chronic obstructive pulmonary disease. 5. Dysphagia. 6. Diabetes type 2. PAST SURGICAL HISTORY: Significant for pacemaker implantation in the left chest wall. CURRENT MEDICATIONS: 1. Tylenol 650 mg p.o. q.4 hours p.r.n. 2. Spironolactone 25 mg one tablet p.o. daily. 3. Aleve 220 mg p.o. q.8 hours p.r.n. 4. Lipitor 10 mg one tablet p.o. daily. 5. Colace 100 mg one tablet p.o. twice daily p.r.n. 6. DuoNeb nebulized q.6 hours p.r.n. 7. Eliquis 2.5 mg one tablet p.o. twice daily. 8. Gabapentin 300 mg one tablet p.o. twice daily. 9. Hydralazine 25 mg one tablet p.o. q.6 hours p.r.n. for hypertension. 10. Lasix 40 mg one tablet p.o. daily for heart failure. 11. Magnesium oxide 400 mg one tablet p.o. daily. 12. Metformin 500 mg one tablet p.o. twice daily. 13. Singulair 10 mg one tablet p.o. daily. 14. Multivitamin one tablet p.o. daily. 15. Namenda 5 mg one tablet p.o. twice daily. 16. Webster 5/325 mg one tablet p.o. q.6 hours p.r.n. 17. NovoLog insulin sliding scale. 18. Omeprazole 20 mg one tablet p.o. daily. 19. Potassium chloride 20 mEq one tablet p.o. daily. 20. Verapamil 240 mg one tablet p.o. daily. 21. Vitamin C 500 mg one tablet p.o. twice daily. ALLERGIES: 1. Erythromycin. 2. Codeine. 3. Meperidine. 4. Penicillin. SOCIAL HISTORY: The patient is a resident of [facility]. The patient denies tobacco or alcohol use. REVIEW OF SYSTEMS: Unable to assess, secondary to the patient's mental condition. PHYSICAL EXAMINATION: VITAL SIGNS: Temperature 98.1 degrees, respirations 19, pulse 104, and blood pressure 100/47. GENERAL: The patient is a thin-appearing, well-developed, well-nourished, female, who is somnolent, but arousable. HEENT: Eyes, pupils are equal and responsive to light and accommodation. Extraocular movements intact. NECK: Supple without lymphadenopathy. CHEST: Lungs are clear to auscultation bilaterally without wheezes or rales. CARDIOVASCULAR: Regular rhythm and rate. S1 and S2 are normal without murmurs, rubs, or gallops. ABDOMEN: Soft, nontender, and nondistended. Positive bowel sounds. No evidence of hepatosplenomegaly. Currently, no rebound or guarding. EXTREMITIES: Negative for clubbing, cyanosis, or edema. RECTAL: Refused. GENITALIA: Refused. NEUROLOGIC: Cranial nerves II through XII are grossly intact without focal deficits. Motor strength is 5/5 bilaterally. Deep tendon reflexes are 2+ plantar. LABORATORY STUDIES: WBC 4.8, hemoglobin 13.5, hematocrit 41.7, and platelets 172,000. Sodium 142, potassium 4.5, chloride 101, CO2 26, BUN 34, creatinine 1.4, and glucose 165. Lactic acid is elevated at 4.6. Urinalysis showed 2+ protein, 4+ occult blood, 3+ leukocyte esterase with WBC too numerous to count. ASSESSMENT: This is a 75-year-old, female. 1. Sepsis. 2. Urinary tract infection. 3. Fever. 4. Generalized weakness. 5. Leukocytosis. 6. Renal failure. 7. Sick sinus syndrome. 8. Diabetes type 2. 9. Hypertension. 10. Hypercholesterolemia. 11. Chronic obstructive pulmonary disease. 12. Dysphagia. TREATMENT: 1. Sepsis/urinary tract infection. An Infectious Disease consultation was obtained with Dr. Chnaey. Urine cultures are pending. Blood cultures are pending. The patient has been started empirically on ertapenem. We will follow recommendation of Infectious Disease. 2. Fever/generalized weakness. This is probably secondary to sepsis as above. 3. Leukocytosis. This is probably secondary to sepsis as above. 4. Renal failure. A Nephrology consultation is pending. This may be secondary to dehydration. The patient is currently receiving intravenous fluids. 5. Sick sinus syndrome. The patient is status post pacemaker implantation. 6. Diabetes type 2. Continue NovoLog sliding scale and metformin as above. 7. Hypertension. The patient is currently off antihypertensive medications secondary to hypotension. 8. Hypercholesterolemia. Continue Lipitor as above. 9. Chronic obstructive pulmonary disease. A Pulmonary consultation was obtained with Dr. Chelsea Telles. Continue DuoNeb as above. 10. Dysphagia. Wilder Colin M.D. DR: CONNIE JOB#: [id number] CC:
[2016-08-28] MEDS ORDERED: Fleet's Enema 133ml RECTAL ONE (23:00)
[2016-08-29] VITALS: BP 97/60
[2016-08-29] MEDS: HydrALAZINE 10mg Tab ORAL SCH ×2 (00:16→06:11)
[2016-08-29] MEDS ORDERED: Ertapenem 1 GM in NS 55 ML IVPB SCH (01:00)
[2016-08-29] MEDS: D5 1/2NS 1,000 ML IV SCH ×3 (07:00→20:20)
[2016-08-29 07:23] LABS: BASOPHILS % (AUTO) 0.7 % (0.0-2.0); EOSINOPHILS % (AUTO) 1.2 % (0.0-3.0); LYMPHOCYTES % (AUTO) 14.9 % (20.0-45.0); MEAN CORPUSCULAR HGB CONC 32.3 G/DL (32.0-36.0); MEAN CORPUSCULAR VOLUME 87 FL (80-99); MEAN PLATELET VOLUME 7.8 FL (6.5-10.1); MONOCYTES % (AUTO) 9.4 % (1.0-10.0); NEUTROPHILS % (AUTO) 73.8 % (45.0-75.0); PLATELET COUNT 131 K/UL (150-450); RED BLOOD COUNT 4.02 M/UL (4.20-5.40); RED CELL DISTRIBUTION WIDTH 13.8 % (11.6-14.8); WHITE BLOOD COUNT 17.1 K/UL (4.8-10.8)
[2016-08-29 07:38] LABS: INR 1.2 (0.9-1.1); PROTHROMBIN TIME 11.8 SEC (9.30-11.50)
--- NOTE | 2016-08-29 07:48 | Infectious Diseases Prog Note ---
Assessment/Plan Assessment/Plan ASSESSMENT: 75 y/o female with: Probable complicated UTI - UCx pending - US: Mild right renal collecting system dilation, nonspecific, stable. Bilateral renal cortical cysts. Bilateral renal echogenic non-shadowing foci-- stones versus angiomyolipomas versus other nonspecific specular reflectors. 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 Severe sepsis - improved lactic acidosis Leukocytosis - improved Fever - improved Left nephrolithiasis DM2 - HbA1c 7% Gastroparesis PCN, Emycin allergies - tolerating invanz Full Code PLAN: continue invanz d# 2 f/u cultures CT of Abd w cont when Cr improves EGD per GI monitor CBC, temperatures monitor BMP Subjective Allergies: Coded Allergies: ERYTHROMYCIN BASE (Verified Allergy, Intermediate, 08/28/16) CODEINE (Verified Allergy, Unknown, 08/28/16) MEPERIDINE (Verified Allergy, Unknown, 08/28/16) PENICILLINS (Verified Allergy, Unknown, 08/28/16) Subjective fevers, leukocytosis improved for possible EGD Objective Vital Signs Last 24 Hour Vital Signs Date Time Temp Pulse Resp B/P Pulse Ox O2 Delivery O2 Flow Rate FiO2 08/29/16 06:11 112/57 08/29/16 04:00 115 08/29/16 00:16 98/62 08/29/16 00:00 115 08/29/16 00:00 97.3 116 20 97/60 99 Nasal Cannula 2.0 99 08/28/16 20:00 103 08/28/16 20:00 97.3 103 18 96/62 96 Nasal Cannula 2.0 99 08/28/16 16:00 100 08/28/16 16:00 97.3 96 18 91/47 Nasal Cannula 2.0 99 08/28/16 12:00 97.0 109 20 108/58 Nasal Cannula 2.0 100 08/28/16 12:00 110 08/28/16 08:00 98.2 115 20 93/66 Nasal Cannula 2.0 97 08/28/16 08:00 112 Height (Feet): 5 Height (Inches): 5.00 Weight (Pounds): 221 General Appearance: no acute distress Respiratory/Chest: no respiratory distress Cardiovascular: normal rate, regular rhythm Abdomen: normal bowel sounds, soft, non tender, non distended Microbiology Date/Time Source Procedure Growth Status 08/28/16 00:40 Blood Blood Culture - Preliminary NO GROWTH AFTER 24 HOURS Resulted 08/28/16 00:25 Blood Blood Culture - Preliminary NO GROWTH AFTER 24 HOURS Resulted Laboratory Tests Test 08/28/16 09:50 08/28/16 13:10 08/29/16 05:35 White Blood Count 20.2 K/UL (4.8-10.8) #H 17.1 K/UL (4.8-10.8) H Red Blood Count 4.16 M/UL (4.20-5.40) L 4.02 M/UL (4.20-5.40) L Hemoglobin 11.7 G/DL (12.0-16.0) L 11.3 G/DL (12.0-16.0) L Hematocrit 36.2 % (37.0-47.0) L 34.9 % (37.0-47.0) L Mean Corpuscular Volume 87 FL (80-99) 87 FL (80-99) Mean Corpuscular Hemoglobin 28.2 PG (27.0-31.0) 28.0 PG (27.0-31.0) Mean Corpuscular Hemoglobin Concent 32.4 G/DL (32.0-36.0) 32.3 G/DL (32.0-36.0) Red Cell Distribution Width 13.5 % (11.6-14.8) 13.8 % (11.6-14.8) Platelet Count 161 K/UL (150-450) 131 K/UL (150-450) L Mean Platelet Volume 8.0 FL (6.5-10.1) 7.8 FL (6.5-10.1) Neutrophils (%) (Auto) % (45.0-75.0) 73.8 % (45.0-75.0) Lymphocytes (%) (Auto) % (20.0-45.0) 14.9 % (20.0-45.0) L Monocytes (%) (Auto) % (1.0-10.0) 9.4 % (1.0-10.0) Eosinophils (%) (Auto) % (0.0-3.0) 1.2 % (0.0-3.0) Basophils (%) (Auto) % (0.0-2.0) 0.7 % (0.0-2.0) Differential Total Cells Counted 100 Neutrophils % (Manual) 74 % (45-75) Lymphocytes % (Manual) 8 % (20-45) L Monocytes % (Manual) 8 % (1-10) Eosinophils % (Manual) 0 % (0-3) Basophils % (Manual) 1 % (0-2) Band Neutrophils 9 % (0-8) H Platelet Estimate Adequate Platelet Morphology Normal Hypochromasia 1+ Sodium Level 142 mEQ/L (135-145) Pending Potassium Level 4.5 mEQ/L (3.4-4.9) Pending Chloride Level 101 mEQ/L (98-107) Pending Carbon Dioxide Level 26 mEQ/L (20-30) Pending Anion Gap 15 (5-15) Blood Urea Nitrogen 34 mg/dL (7-23) H Pending Creatinine 1.4 mg/dL (0.5-0.9) H Pending Estimat Glomerular Filtration Rate mL/min (>60) Pending Glucose Level 155 mg/dL (74-106) H Pending Lactic Acid Level 3.00 mmol/L (0.66-2.22) H 2.60 mmol/L (0.66-2.22) H Calcium Level 8.9 mg/dL (8.6-10.2) Pending Phosphorus Level 3.7 mg/dL (2.5-4.8) Magnesium Level 1.3 mg/dL (1.7-2.5) L Total Bilirubin 0.5 mg/dL (0.0-1.2) Pending Aspartate Amino Transf (AST/SGOT) 38 U/L (5-40) Pending Alanine Aminotransferase (ALT/SGPT) 28 U/L (3-33) Pending Alkaline Phosphatase 117 U/L (35-104) H Pending Total Protein 6.6 g/dL (6.6-8.7) Pending Albumin 3.5 g/dL (3.5-5.2) Pending Globulin 3.1 g/dL Pending Albumin/Globulin Ratio 1.1 (1.0-2.7) Prothrombin Time 11.8 SEC (9.30-11.50) H Prothromb Time International Ratio 1.2 (0.9-1.1) H Activated Partial Thromboplast Time 36 SEC (23-33) H Amylase Level Pending Lipase Pending Current Medications Medications (Trade) Dose Ordered Sig/Joann Route PRN Reason Start Time Stop Time Status Last Admin Dose Admin Acetaminophen (Tylenol) 650 mg Q4H PRN ORAL fever 08/28/16 04:45 09/27/16 04:44 Al Hydroxide/Mg Hydroxide (Mylanta II) 30 ml Q6H PRN ORAL dyspepsia 08/28/16 04:45 09/27/16 04:44 Atorvastatin Calcium (Lipitor) 10 mg BEDTIME ORAL 08/28/16 21:00 09/27/16 20:59 08/28/16 21:04 Dextrose (Dextrose 50%) STAT PRN IV Hypoglycemia 08/28/16 04:45 09/27/16 04:44 Dextrose/Sodium Chloride (D5 0.45% NS) 1,000 ml @ 75 mls/hr [id number] IV 08/28/16 17:40 09/27/16 17:39 08/28/16 18:26 Diphenhydramine HCl (Benadryl) 25 mg Q6H PRN ORAL Itching/Pruritis 08/28/16 04:45 09/27/16 04:44 Docusate Sodium (Colace) 100 mg THREE TIMES A DAY ORAL 08/28/16 13:00 09/27/16 12:59 08/28/16 14:32 Ertapenem/Sodium Chloride (INVanz/Sodium Chloride) 55 ml @ 110 mls/hr Q24HRS IVPB 08/29/16 01:00 08/30/16 00:59 08/29/16 01:09 Gabapentin (Neurontin) 100 mg TID ORAL 08/28/16 09:00 09/27/16 08:59 08/28/16 18:27 Hydralazine HCl (Apresoline) 25 mg Q6HR ORAL 08/29/16 12:00 09/28/16 11:59 Lorazepam (Ativan 2mg/ml 1ml) 1 mg EVERY 4 HOURS PRN IV agitation 08/28/16 04:45 09/04/16 04:44 Memantine 5 mg 5 mg BID ORAL 08/28/16 09:00 09/27/16 08:59 08/28/16 18:27 Metoclopramide HCl (Reglan) 10 mg Q6H PRN IVP servere nausea 08/28/16 04:45 09/27/16 04:44 Nitroglycerin (Ntg) 0.4 mg Q5M X 3 DOSES PRN SL Prn Chest Pain 08/28/16 04:45 09/27/16 04:44 Ondansetron HCl (Zofran) 4 mg Q6H PRN IVP Nausea & Vomiting 08/28/16 04:45 09/27/16 04:44 Pantoprazole (Protonix) 40 mg DAILY IV 08/28/16 09:00 09/27/16 08:59 08/28/16 09:29 Polyethylene Glycol (Miralax) 17 gm BEDTIME ORAL 08/28/16 21:00 09/27/16 20:59 08/28/16 21:04 Polyethylene Glycol (Miralax) 17 gm HSPRN PRN ORAL Constipation 08/28/16 04:45 09/27/16 04:44 Temazepam (Restoril) 15 mg HSPRN PRN ORAL Insomnia 08/28/16 04:45 09/04/16 04:44 DANNA RODRIGUEZ August 29, 2016 07:48
[2016-08-29 07:55] LABS: ALANINE AMINOTRANSFERASE 29 U/L (3-33); ALBUMIN/GLOBULIN RATIO 0.9 (1.0-2.7); AMYLASE 346 U/L (10-110); ANION GAP 14 (5-15); ASPARTATE AMINO TRANSFERASE 36 U/L (5-40); CALCIUM 8.8 mg/dL (8.6-10.2); CARBON DIOXIDE 28 mEQ/L (20-30); CHLORIDE 94 mEQ/L (98-107); CREATININE 0.9 mg/dL (0.5-0.9); HEMOLYSIS 0; LIPASE 18 U/L (< 60); POTASSIUM 3.7 mEQ/L (3.4-4.9); SODIUM 136 mEQ/L (135-145); TOTAL PROTEIN 6.9 g/dL (6.6-8.7)
[2016-08-29 08:00] VITALS: BP 105/57
[2016-08-29] MEDS ORDERED: Pneumococcal Vaccine 25mcg/0.5ml IM ONE (09:00)
[2016-08-29] MEDS: Docusate 100mg cap ORAL SCH ×3 (10:49→18:01)
[2016-08-29] MEDS: Memantine 10mg tab ORAL SCH ×2 (10:49→10:54)
[2016-08-29] MEDS: Pantoprazole Inj IV SCH (10:50)
[2016-08-29 12:00] VITALS: BP_SYST 110; BP_SYST 116; BP_DIAS 51; BP_DIAS 68
[2016-08-29] MEDS: HydrALAZINE 25mg tab ORAL SCH ×2 (12:00→18:00)
--- NOTE | 2016-08-29 12:32 | Pulmonology Progress Note ---
Assessment/Plan Problems: (1) Severe sepsis (2) Encephalopathy acute (3) COPD (chronic obstructive pulmonary disease) (4) Gout (5) Hypertension (6) Pacemaker (7) Hepatitis C Assessment/Plan iv antibiotics check blood cultures EGD, for today liver disease stable renal function improving dvt borderline hypotensive, will keep in teli for today continue antibiotics Subjective Interval Events: general malaise, npo for EGD Allergies: Coded Allergies: ERYTHROMYCIN BASE (Verified Allergy, Intermediate, 08/28/16) CODEINE (Verified Allergy, Unknown, 08/28/16) MEPERIDINE (Verified Allergy, Unknown, 08/28/16) PENICILLINS (Verified Allergy, Unknown, 08/28/16) Objective Last 24 Hour Vital Signs Date Time Temp Pulse Resp B/P Pulse Ox O2 Delivery O2 Flow Rate FiO2 08/29/16 08:00 97.0 114 17 105/57 99 Nasal Cannula 2.0 08/29/16 06:11 112/57 08/29/16 04:00 115 08/29/16 00:16 98/62 08/29/16 00:00 115 08/29/16 00:00 97.3 116 20 97/60 99 Nasal Cannula 2.0 99 08/28/16 20:00 103 08/28/16 20:00 97.3 103 18 96/62 96 Nasal Cannula 2.0 99 08/28/16 16:00 100 08/28/16 16:00 97.3 96 18 91/47 Nasal Cannula 2.0 99 Intake and Output 08/28/16 08/29/16 19:00 07:00 Intake Total 880 ml Output Total 1000 ml Balance -120 ml Intake IV Total 880 ml Output Urine Total 1000 ml # Bowel Movements 1 1 General Appearance: WD/WN HEENT: normocephalic, atraumatic Respiratory/Chest: chest wall non-tender, normal breath sounds Cardiovascular: normal peripheral pulses, normal rate Abdomen: normal bowel sounds, soft, non tender Genitourinary: normal external genitalia Extremities: no clubbing Skin: no rash Microbiology Date/Time Source Procedure Growth Status 08/28/16 00:40 Blood Blood Culture - Preliminary Resulted 08/28/16 00:25 Blood Blood Culture - Preliminary Resulted 08/28/16 00:44 Nasal Nares MRSA Culture - Final Staphylococcus Aureus - Mrsa Complete 08/28/16 00:44 Urine,Clean Catch Urine Culture - Preliminary Gram Negative Bacillus 1 Resulted Laboratory Tests 08/28/16 13:10: Lactic Acid Level 2.60H 08/29/16 05:35: White Blood Count 17.1H, Red Blood Count 4.02L, Hemoglobin 11.3L, Hematocrit 34.9L, Mean Corpuscular Volume 87, Mean Corpuscular Hemoglobin 28.0, Mean Corpuscular Hemoglobin Concent 32.3, Red Cell Distribution Width 13.8, Platelet Count 131L, Mean Platelet Volume 7.8, Neutrophils (%) (Auto) 73.8, Lymphocytes ( %) (Auto) 14.9L, Monocytes (%) (Auto) 9.4, Eosinophils (%) (Auto) 1.2, Basophils (%) (Auto) 0.7, Prothrombin Time 11.8H, Prothromb Time International Ratio 1.2H, Activated Partial Thromboplast Time 36H, Sodium Level 136, Potassium Level 3.7, Chloride Level 94L, Carbon Dioxide Level 28, Anion Gap 14, Blood Urea Nitrogen 31H, Creatinine 0.9, Estimat Glomerular Filtration Rate , Glucose Level 115H, Calcium Level 8.8, Total Bilirubin 0.5, Aspartate Amino Transf (AST/SGOT) 36, Alanine Aminotransferase (ALT/SGPT) 29, Alkaline Phosphatase 144H, Total Protein 6.9, Albumin 3.3L, Globulin 3.6, Albumin/ Globulin Ratio 0.9L, Amylase Level 346H, Lipase 18 Current Medications Medications (Trade) Dose Ordered Sig/Joann Route PRN Reason Start Time Stop Time Status Last Admin Dose Admin Acetaminophen (Tylenol) 650 mg Q4H PRN ORAL fever 08/28/16 04:45 09/27/16 04:44 Al Hydroxide/Mg Hydroxide (Mylanta II) 30 ml Q6H PRN ORAL dyspepsia 08/28/16 04:45 09/27/16 04:44 Atorvastatin Calcium (Lipitor) 10 mg BEDTIME ORAL 08/28/16 21:00 09/27/16 20:59 08/28/16 21:04 Dextrose (Dextrose 50%) STAT PRN IV Hypoglycemia 08/28/16 04:45 09/27/16 04:44 Dextrose/Sodium Chloride (D5 0.45% NS) 1,000 ml @ 75 mls/hr [id number] IV 08/28/16 17:40 09/27/16 17:39 08/28/16 18:26 Diphenhydramine HCl (Benadryl) 25 mg Q6H PRN ORAL Itching/Pruritis 08/28/16 04:45 09/27/16 04:44 Docusate Sodium (Colace) 100 mg THREE TIMES A DAY ORAL 08/28/16 13:00 09/27/16 12:59 08/28/16 14:32 Ertapenem/Sodium Chloride (INVanz/Sodium Chloride) 55 ml @ 110 mls/hr Q24HRS IVPB 08/29/16 01:00 09/02/16 00:59 08/29/16 01:09 Gabapentin (Neurontin) 100 mg TID ORAL 08/28/16 09:00 09/27/16 08:59 08/28/16 18:27 Hydralazine HCl 25 mg 25 mg Q6HR ORAL 08/29/16 12:00 09/28/16 11:59 Lorazepam (Ativan 2mg/ml 1ml) 1 mg EVERY 4 HOURS PRN IV agitation 08/28/16 04:45 09/04/16 04:44 Memantine 5 mg 5 mg BID ORAL 08/28/16 09:00 09/27/16 08:59 08/28/16 18:27 Meropenem/Sodium Chloride (Merrem/Sodium Chloride) 110 ml @ 220 mls/hr Q8HR IVPB 08/29/16 14:00 09/03/16 13:59 UNV Metoclopramide HCl (Reglan) 10 mg Q6H PRN IVP servere nausea 08/28/16 04:45 09/27/16 04:44 Nitroglycerin (Ntg) 0.4 mg Q5M X 3 DOSES PRN SL Prn Chest Pain 08/28/16 04:45 09/27/16 04:44 Ondansetron HCl (Zofran) 4 mg Q6H PRN IVP Nausea & Vomiting 08/28/16 04:45 09/27/16 04:44 Pantoprazole (Protonix) 40 mg DAILY IV 08/28/16 09:00 09/27/16 08:59 08/29/16 10:50 Polyethylene Glycol (Miralax) 17 gm BEDTIME ORAL 08/28/16 21:00 09/27/16 20:59 08/28/16 21:04 Polyethylene Glycol (Miralax) 17 gm HSPRN PRN ORAL Constipation 08/28/16 04:45 09/27/16 04:44 Temazepam (Restoril) 15 mg HSPRN PRN ORAL Insomnia 08/28/16 04:45 09/04/16 04:44 JONH RODRIGUEZ August 29, 2016 12:31
--- NOTE | 2016-08-29 12:51 | Pre-Procedure Note/Attestation ---
Pre-Procedure Note/Attestation Complete Prior to Procedure Planned Procedure: not applicable Procedure Narrative: egd/colon Indications for Procedure Pre-Operative Diagnosis: anemia Attestation I attest that I discussed the nature of the procedure; its benefits; risks and complications; and alternatives (and the risks and benefits of such alternatives ), prior to the procedure, with the patient (or the patient's legal rental representative). I attest that, if there was a reasonable possibility of needing a blood transfusion, the patient (or the patient's legal rental representative) was given the [facility] standardized written summary, pursuant to the [employer] Blood Safety Act ([place] Health and Safety Code # 1645, as amended). I attest that I re-evaluated the patient just prior to the surgery and that there has been no change in the patient's H&P, except as documented below: MICHAEL SINGH August 29, 2016 12:51
--- NOTE | 2016-08-29 12:58 | Anethesia Preoperative Eval ---
Anesthesia Pre-op PMH/ROS General Date of Evaluation: August 29, 2016 Time of Evaluation: 12:55 Anesthesiologist: nakul ASA Score: ASA 3 Mallampati Score Class I : Soft palate, uvula, fauces, pillars visible Class II: Soft palate, uvula, fauces visible Class III: Soft palate, base of uvula visible Class IV: Only hard plate visible Mallampati Classification: Class III Surgeon: dariela Diagnosis: anemia, vomiting Surgical Procedure: egd/colonoscopy Anesthesia History: none Allergies: Coded Allergies: ERYTHROMYCIN BASE (Verified Allergy, Intermediate, 08/28/16) CODEINE (Verified Allergy, Unknown, 08/28/16) MEPERIDINE (Verified Allergy, Unknown, 08/28/16) PENICILLINS (Verified Allergy, Unknown, 08/28/16) Past Medical History Cardiovascular: Reports: HTN Pulmonary: Reports: COPD Gastrointestinal/Genitourinary: Reports: CRI, other - HEP C, pancreatitis Neurologic/Psychiatric: Reports: dementia Endocrine: Reports: DM Hematology/Immune: Reports: DVT, anemia Other: obesity Anesthesia Pre-op Phys. Exam Physician Exam Last Vital Signs Date Time Temp Pulse Resp B/P Pulse Ox O2 Delivery O2 Flow Rate FiO2 08/29/16 08:00 97.0 114 17 105/57 99 Nasal Cannula 2.0 08/29/16 00:00 99 Airway Exam Mallampati Score: Class III Teeth: missing Anesthesia Pre-op A/P Labs Hematology Test 08/29/16 05:35 White Blood Count 17.1 K/UL (4.8-10.8) H Red Blood Count 4.02 M/UL (4.20-5.40) L Hemoglobin 11.3 G/DL (12.0-16.0) L Hematocrit 34.9 % (37.0-47.0) L Mean Corpuscular Volume 87 FL (80-99) Mean Corpuscular Hemoglobin 28.0 PG (27.0-31.0) Mean Corpuscular Hemoglobin Concent 32.3 G/DL (32.0-36.0) Red Cell Distribution Width 13.8 % (11.6-14.8) Platelet Count 131 K/UL (150-450) L Mean Platelet Volume 7.8 FL (6.5-10.1) Neutrophils (%) (Auto) 73.8 % (45.0-75.0) Lymphocytes (%) (Auto) 14.9 % (20.0-45.0) L Monocytes (%) (Auto) 9.4 % (1.0-10.0) Eosinophils (%) (Auto) 1.2 % (0.0-3.0) Basophils (%) (Auto) 0.7 % (0.0-2.0) Coagulation Test 08/29/16 05:35 Prothrombin Time 11.8 SEC (9.30-11.50) H Prothromb Time International Ratio 1.2 (0.9-1.1) H Activated Partial Thromboplast Time 36 SEC (23-33) H Chemistry Test 08/28/16 13:10 08/29/16 05:35 Lactic Acid Level 2.60 mmol/L (0.66-2.22) H Sodium Level 136 mEQ/L (135-145) Potassium Level 3.7 mEQ/L (3.4-4.9) Chloride Level 94 mEQ/L (98-107) L Carbon Dioxide Level 28 mEQ/L (20-30) Anion Gap 14 (5-15) Blood Urea Nitrogen 31 mg/dL (7-23) H Creatinine 0.9 mg/dL (0.5-0.9) Estimat Glomerular Filtration Rate mL/min (>60) Glucose Level 115 mg/dL (74-106) H Calcium Level 8.8 mg/dL (8.6-10.2) Total Bilirubin 0.5 mg/dL (0.0-1.2) Aspartate Amino Transf (AST/SGOT) 36 U/L (5-40) Alanine Aminotransferase (ALT/SGPT) 29 U/L (3-33) Alkaline Phosphatase 144 U/L (35-104) H Total Protein 6.9 g/dL (6.6-8.7) Albumin 3.3 g/dL (3.5-5.2) L Globulin 3.6 g/dL Albumin/Globulin Ratio 0.9 (1.0-2.7) L Amylase Level 346 U/L (10-110) H Lipase 18 U/L (< 60) Risk Assessment & Plan Plan: propofol Status Change Before Surgery: Rashaun Hsu MD August 29, 2016 12:58
--- NOTE | 2016-08-29 13:00 | Immediate Post-Op Evaluation ---
Immediate Post-Op Evalulation Immediate Post-Op Evalulation Date of Evaluation: August 29, 2016 Pain Score (1-10): 0 Nausea: No Vomiting: No Complications none Patient Status: awake, patent, none Hydration Status: adequate Rashaun Faith MD August 29, 2016 13:00
--- NOTE | 2016-08-29 13:01 | 48 Hour Post Anesthesia Eval ---
Post Anesthesia Evaluation Date of Evaluation: August 29, 2016 Rashaun Faith MD August 29, 2016 13:01
[2016-08-29 13:08] VITALS: BP 118/65
--- NOTE | 2016-08-29 13:13 | General Progress Note ---
Assessment/Plan Problem List: (1) Hepatitis C ICD Codes: B19.20 - Unspecified viral hepatitis C without hepatic coma SNOMED: 19000674 (2) COPD (chronic obstructive pulmonary disease) ICD Codes: J44.9 - Chronic obstructive pulmonary disease, unspecified SNOMED: 96494224 (3) Hypertension ICD Codes: I10 - Essential (primary) hypertension SNOMED: 02590558 (4) Pacemaker ICD Codes: Z95.0 - Presence of cardiac pacemaker SNOMED: 487727869 (5) Fever ICD Codes: R50.9 - Fever, unspecified SNOMED: 030699365 Assessment/Plan GI procedures was canceled due to fever, elevated WBC, tachycardia plan possibly on Thursday if patient is stable Subjective ROS Limited/Unobtainable: No Allergies: Coded Allergies: ERYTHROMYCIN BASE (Verified Allergy, Intermediate, 08/28/16) CODEINE (Verified Allergy, Unknown, 08/28/16) MEPERIDINE (Verified Allergy, Unknown, 08/28/16) PENICILLINS (Verified Allergy, Unknown, 08/28/16) Objective Last 24 Hour Vital Signs Date Time Temp Pulse Resp B/P Pulse Ox O2 Delivery O2 Flow Rate FiO2 08/29/16 13:08 100.6 120 22 118/65 98 Nasal Cannula 4.0 08/29/16 12:00 98.0 118 17 110/51 98 Nasal Cannula 2.0 08/29/16 08:00 97.0 114 17 105/57 99 Nasal Cannula 2.0 08/29/16 06:11 112/57 08/29/16 04:00 115 08/29/16 00:16 98/62 08/29/16 00:00 115 08/29/16 00:00 97.3 116 20 97/60 99 Nasal Cannula 2.0 99 08/28/16 20:00 103 08/28/16 20:00 97.3 103 18 96/62 96 Nasal Cannula 2.0 99 08/28/16 16:00 100 08/28/16 16:00 97.3 96 18 91/47 Nasal Cannula 2.0 99 Intake and Output 08/28/16 08/29/16 19:00 07:00 Intake Total 880 ml Output Total 1000 ml Balance -120 ml Intake IV Total 880 ml Output Urine Total 1000 ml # Bowel Movements 1 1 Laboratory Tests 08/29/16 05:35: White Blood Count 17.1H, Red Blood Count 4.02L, Hemoglobin 11.3L, Hematocrit 34.9L, Mean Corpuscular Volume 87, Mean Corpuscular Hemoglobin 28.0, Mean Corpuscular Hemoglobin Concent 32.3, Red Cell Distribution Width 13.8, Platelet Count 131L, Mean Platelet Volume 7.8, Neutrophils (%) (Auto) 73.8, Lymphocytes ( %) (Auto) 14.9L, Monocytes (%) (Auto) 9.4, Eosinophils (%) (Auto) 1.2, Basophils (%) (Auto) 0.7, Prothrombin Time 11.8H, Prothromb Time International Ratio 1.2H, Activated Partial Thromboplast Time 36H, Sodium Level 136, Potassium Level 3.7, Chloride Level 94L, Carbon Dioxide Level 28, Anion Gap 14, Blood Urea Nitrogen 31H, Creatinine 0.9, Estimat Glomerular Filtration Rate , Glucose Level 115H, Calcium Level 8.8, Total Bilirubin 0.5, Aspartate Amino Transf (AST/SGOT) 36, Alanine Aminotransferase (ALT/SGPT) 29, Alkaline Phosphatase 144H, Total Protein 6.9, Albumin 3.3L, Globulin 3.6, Albumin/ Globulin Ratio 0.9L, Amylase Level 346H, Lipase 18 Height (Feet): 5 Height (Inches): 5.00 Weight (Pounds): 221 General Appearance: confused EENT: normal ENT inspection Neck: supple Cardiovascular: tachycardia Respiratory/Chest: decreased breath sounds Abdomen: normal bowel sounds, non tender, soft Extremities: non-tender MICHAEL SINGH August 29, 2016 13:13
[2016-08-29] MEDS: Meropenem 1 GM in NS 110 ML IVPB SCH ×2 (14:53→21:04)
[2016-08-29] MEDS ORDERED: Tubing IV Secondary IV ONE (15:31)
[2016-08-29] MEDS ORDERED: D5 1/2NS 1000ml IV ONE (15:31)
[2016-08-29 16:00] VITALS: BP 101/59
--- NOTE | 2016-08-29 16:14 | Internal Med Progress Note ---
Subjective Date of Service: August 29, 2016 Physician Name VázquezChema Attending Physician Zion Echevarria MD Current Medications Medications (Trade) Dose Ordered Sig/Joann Route PRN Reason Start Time Stop Time Status Last Admin Dose Admin Acetaminophen (Tylenol) 650 mg Q4H PRN ORAL fever 08/28/16 04:45 09/27/16 04:44 08/29/16 14:08 Al Hydroxide/Mg Hydroxide (Mylanta II) 30 ml Q6H PRN ORAL dyspepsia 08/28/16 04:45 09/27/16 04:44 Atorvastatin Calcium (Lipitor) 10 mg BEDTIME ORAL 08/28/16 21:00 09/27/16 20:59 08/28/16 21:04 Dextrose (Dextrose 50%) STAT PRN IV Hypoglycemia 08/28/16 04:45 09/27/16 04:44 Dextrose/Sodium Chloride (D5 0.45% NS) 1,000 ml @ 75 mls/hr [id number] IV 08/28/16 17:40 09/27/16 17:39 08/28/16 18:26 Diphenhydramine HCl (Benadryl) 25 mg Q6H PRN ORAL Itching/Pruritis 08/28/16 04:45 09/27/16 04:44 Docusate Sodium (Colace) 100 mg THREE TIMES A DAY ORAL 08/28/16 13:00 09/27/16 12:59 08/28/16 14:32 Gabapentin (Neurontin) 100 mg TID ORAL 08/28/16 09:00 09/27/16 08:59 08/28/16 18:27 Hydralazine HCl 25 mg 25 mg Q6HR ORAL 08/29/16 12:00 09/28/16 11:59 Lorazepam (Ativan 2mg/ml 1ml) 1 mg EVERY 4 HOURS PRN IV agitation 08/28/16 04:45 09/04/16 04:44 Memantine 5 mg 5 mg BID ORAL 08/28/16 09:00 09/27/16 08:59 08/28/16 18:27 Meropenem/Sodium Chloride (Merrem/Sodium Chloride) 110 ml @ 220 mls/hr Q8HR IVPB 08/29/16 14:30 09/03/16 14:29 08/29/16 14:53 Metoclopramide HCl (Reglan) 10 mg Q6H PRN IVP servere nausea 08/28/16 04:45 09/27/16 04:44 Nitroglycerin (Ntg) 0.4 mg Q5M X 3 DOSES PRN SL Prn Chest Pain 08/28/16 04:45 09/27/16 04:44 Ondansetron HCl (Zofran) 4 mg Q6H PRN IVP Nausea & Vomiting 08/28/16 04:45 09/27/16 04:44 Pantoprazole (Protonix) 40 mg DAILY IV 08/28/16 09:00 09/27/16 08:59 08/29/16 10:50 Polyethylene Glycol (Miralax) 17 gm BEDTIME ORAL 08/28/16 21:00 09/27/16 20:59 08/28/16 21:04 Polyethylene Glycol (Miralax) 17 gm HSPRN PRN ORAL Constipation 08/28/16 04:45 09/27/16 04:44 Temazepam (Restoril) 15 mg HSPRN PRN ORAL Insomnia 08/28/16 04:45 09/04/16 04:44 Allergies: Coded Allergies: ERYTHROMYCIN BASE (Verified Allergy, Intermediate, 08/28/16) CODEINE (Verified Allergy, Unknown, 08/28/16) MEPERIDINE (Verified Allergy, Unknown, 08/28/16) PENICILLINS (Verified Allergy, Unknown, 08/28/16) ROS Limited/Unobtainable: No Constitutional: Reports: fever HEENT: Reports: no symptoms Cardiovascular: Reports: no symptoms Respiratory: Reports: no symptoms Gastrointestinal/Abdominal: Reports: no symptoms Genitourinary: Reports: no symptoms Neurologic/Psychiatric: Reports: no symptoms Subjective 75 YO F admitted for fever and gen weakness. Now UTI. Cover for Int Med-Dr Echevarria. Low grade fever this am. "I thought I was in [place]". Objective Last Vital Signs Date Time Temp Pulse Resp B/P Pulse Ox O2 Delivery O2 Flow Rate FiO2 08/29/16 13:08 100.6 120 22 118/65 98 Nasal Cannula 4.0 08/29/16 00:00 99 Laboratory Tests Test 08/29/16 05:35 White Blood Count 17.1 K/UL (4.8-10.8) H Red Blood Count 4.02 M/UL (4.20-5.40) L Hemoglobin 11.3 G/DL (12.0-16.0) L Hematocrit 34.9 % (37.0-47.0) L Mean Corpuscular Volume 87 FL (80-99) Mean Corpuscular Hemoglobin 28.0 PG (27.0-31.0) Mean Corpuscular Hemoglobin Concent 32.3 G/DL (32.0-36.0) Red Cell Distribution Width 13.8 % (11.6-14.8) Platelet Count 131 K/UL (150-450) L Mean Platelet Volume 7.8 FL (6.5-10.1) Neutrophils (%) (Auto) 73.8 % (45.0-75.0) Lymphocytes (%) (Auto) 14.9 % (20.0-45.0) L Monocytes (%) (Auto) 9.4 % (1.0-10.0) Eosinophils (%) (Auto) 1.2 % (0.0-3.0) Basophils (%) (Auto) 0.7 % (0.0-2.0) Prothrombin Time 11.8 SEC (9.30-11.50) H Prothromb Time International Ratio 1.2 (0.9-1.1) H Activated Partial Thromboplast Time 36 SEC (23-33) H Sodium Level 136 mEQ/L (135-145) Potassium Level 3.7 mEQ/L (3.4-4.9) Chloride Level 94 mEQ/L (98-107) L Carbon Dioxide Level 28 mEQ/L (20-30) Anion Gap 14 (5-15) Blood Urea Nitrogen 31 mg/dL (7-23) H Creatinine 0.9 mg/dL (0.5-0.9) Estimat Glomerular Filtration Rate mL/min (>60) Glucose Level 115 mg/dL (74-106) H Calcium Level 8.8 mg/dL (8.6-10.2) Total Bilirubin 0.5 mg/dL (0.0-1.2) Aspartate Amino Transf (AST/SGOT) 36 U/L (5-40) Alanine Aminotransferase (ALT/SGPT) 29 U/L (3-33) Alkaline Phosphatase 144 U/L (35-104) H Total Protein 6.9 g/dL (6.6-8.7) Albumin 3.3 g/dL (3.5-5.2) L Globulin 3.6 g/dL Albumin/Globulin Ratio 0.9 (1.0-2.7) L Amylase Level 346 U/L (10-110) H Lipase 18 U/L (< 60) Microbiology Date/Time Source Procedure Growth Status 08/28/16 00:40 Blood Blood Culture - Preliminary Resulted 08/28/16 00:25 Blood Blood Culture - Preliminary Resulted 08/28/16 00:44 Nasal Nares MRSA Culture - Final Staphylococcus Aureus - Mrsa Complete 08/28/16 00:44 Urine,Clean Catch Urine Culture - Preliminary Gram Negative Bacillus 1 Resulted Intake and Output 08/28/16 08/29/16 19:00 07:00 Intake Total 880 ml Output Total 1000 ml Balance -120 ml Intake IV Total 880 ml Output Urine Total 1000 ml # Bowel Movements 1 1 Objective General: alert, cooperative, no distress, appears stated age Head: normocephalic, without obvious abnormality, atraumatic Eyes: conjunctivae/corneas clear. PERRL, EOM's intact Throat: lips, mucosa, and tongue normal. MMM Neck: supple, symmetrical, trachea midline, and no JVD Lungs: clear to auscultation bilaterally Heart: Sinus tachycardia; regular rhythm, S1, S2 normal, no murmur, click, rub or gallop Abdomen: soft, non-tender, non-distended, bowel sounds normal; no masses or organomegaly Extremities: extremities normal, atraumatic, no cyanosis or edema Pulses: 2+ and symmetric Skin: skin color, texture, turgor normal; no rashes or lesions Neurologic: grossly normal, no focal deficits Assessment/Plan Problem List: (1) Diabetes mellitus, type II Assessment & Plan: Continue novolog sliding scale. (2) Generalized weakness (3) Severe sepsis (4) Fever Assessment & Plan: Continues low grade. See ID note. D/C ertapenem; start Meropenem (5) UTI (urinary tract infection) Assessment & Plan: Gram neg eloise. D/C ertapenem; start meropenem. (6) Leukocytosis (7) Renal failure (8) Sick sinus syndrome Assessment & Plan: S/P pacemaker. Await interrogation. (9) Hypertension Assessment & Plan: Cont hydralazine (10) Hypercholesterolemia Assessment & Plan: Continue lipitor (11) COPD (chronic obstructive pulmonary disease) (12) Dysphagia (13) Sinus tachycardia Assessment & Plan: Await cardiology consult. (14) Toxic metabolic encephalopathy (15) Pacemaker Status: not improved CHEMA VÁZQUEZ August 29, 2016 16:14
[2016-08-29] MEDS ORDERED: Xarelto 10mg tab ORAL SCH (16:30)
[2016-08-29] MEDS: NovoLOG Insulin Flexpen SUBQ SCH ×2 (17:25→21:00)
[2016-08-29] MEDS: Albuterol ud Inhalation HHN SCH (18:00)
[2016-08-29 20:13] VITALS: BP 108/70
[2016-08-29] MEDS: Miralax 17gm pkt ORAL SCH (21:02)
[2016-08-30] VITALS: BP 131/64
[2016-08-30] MEDS: Albuterol ud Inhalation HHN SCH ×4 (01:00→19:21)
[2016-08-30] MEDS: HydrALAZINE 25mg tab ORAL SCH ×3 (01:07→13:35)
[2016-08-30 04:00] VITALS: BP 126/70
[2016-08-30] MEDS: Meropenem 1 GM in NS 110 ML IVPB SCH ×3 (05:51→21:00)
[2016-08-30] MEDS: NovoLOG Insulin Flexpen SUBQ SCH ×4 (05:58→21:05)
[2016-08-30 07:33] LABS: BASOPHILS % (AUTO) 0.8 % (0.0-2.0); EOSINOPHILS % (AUTO) 1.1 % (0.0-3.0); LYMPHOCYTES % (AUTO) 18.6 % (20.0-45.0); MEAN CORPUSCULAR HEMOGLOBIN 27.9 PG (27.0-31.0); MEAN CORPUSCULAR VOLUME 87 FL (80-99); MEAN PLATELET VOLUME 8.3 FL (6.5-10.1); MONOCYTES % (AUTO) 8.8 % (1.0-10.0); NEUTROPHILS % (AUTO) 70.7 % (45.0-75.0); PLATELET COUNT 138 K/UL (150-450); RED BLOOD COUNT 3.83 M/UL (4.20-5.40); RED CELL DISTRIBUTION WIDTH 13.2 % (11.6-14.8)
--- NOTE | 2016-08-30 07:36 | Pulmonology Progress Note ---
Assessment/Plan Assessment/Plan ASSESSMENT severe sepsis with bacteremia gram negative bacteremia UTI E coli ESBL COPD pacemaker L chest acute encephalopathy Hx of HTN Hep C ARF DM diabetes induced gastroparesis PLAN OF CARE tele IVF abx ID follows urine cx + E coli ESBL, blood cx + GNR GI follows EGD cancelled 08/29 due to fever and tachy, possible Thursday if stable abdominal US c/w chronic hepatocellular disease outpt Rx for hep C Reglan prn no MRCP -pt with pacemaker Xarelto on hold in lieu of pending GI procedure, to be resumed after procedure bowel regimen creat down to normal, ARF likely prerenal 2 to dehydration O2 HHN prn CXR no new abnormalities BS management with SS of insulin, [id number]. optimize as needed continue statin DVT, GI prophylaxis case discussed and evaluated by supervising physician Subjective Allergies: Coded Allergies: ERYTHROMYCIN BASE (Verified Allergy, Intermediate, 08/28/16) CODEINE (Verified Allergy, Unknown, 08/28/16) MEPERIDINE (Verified Allergy, Unknown, 08/28/16) PENICILLINS (Verified Allergy, Unknown, 08/28/16) Subjective low grade fever this am, mild tachy, leukocytosis trending down denies chest pain, SOB no n/v/ complains about food Objective Last 24 Hour Vital Signs Date Time Temp Pulse Resp B/P Pulse Ox O2 Delivery O2 Flow Rate FiO2 08/30/16 07:17 104 18 100 Room Air 21 08/30/16 07:09 21 08/30/16 07:09 105 18 99 Room Air 08/30/16 05:51 125/74 08/30/16 04:00 110 08/30/16 04:00 100.2 109 20 126/70 92 Room Air 4.0 08/30/16 01:15 103 18 99 Room Air 08/30/16 01:15 21 08/30/16 01:07 131/64 08/30/16 01:00 103 18 99 Room Air 21 08/30/16 00:00 103 08/30/16 00:00 99.7 101 20 131/64 94 Room Air 4.0 21 08/29/16 20:13 97.0 105 20 108/70 100 Room Air 08/29/16 20:00 105 08/29/16 19:25 21 08/29/16 19:25 Room Air 08/29/16 19:25 Room Air 08/29/16 18:00 101/59 08/29/16 16:00 98.2 98 17 101/59 98 Room Air 08/29/16 16:00 102 08/29/16 15:07 99.0 08/29/16 13:08 100.6 120 22 118/65 98 Nasal Cannula 4.0 08/29/16 12:00 117 08/29/16 12:00 98.0 118 17 110/51 98 Nasal Cannula 2.0 08/29/16 08:00 97.0 114 17 105/57 99 Nasal Cannula 2.0 08/29/16 08:00 116 Intake and Output 08/29/16 08/30/16 19:00 07:00 Intake Total 465 ml 862.5 ml Output Total 1010 ml 800 ml Balance -545 ml 62.5 ml Intake Oral 240 ml IV Total 225 ml 862.5 ml Output Urine Total 1010 ml 800 ml # Voids 1 General Appearance: no acute distress, other - awake, alert, oriented elderly AA female, obese HEENT: normocephalic, atraumatic, anicteric, mucous membranes moist Respiratory/Chest: lungs clear, no respiratory distress, no accessory muscle use, other - L chest pacemaker Cardiovascular: no JVD, tachycardia - 100-106 ; V pacing Abdomen: normal bowel sounds, soft, non tender - obese Extremities: no edema Neurologic/Psychiatric: abnormal gait, alert, responsive Microbiology Date/Time Source Procedure Growth Status 08/28/16 00:40 Blood Blood Culture - Preliminary Gram Negative Douglas Resulted 08/28/16 00:25 Blood Blood Culture - Preliminary Gram Negative Douglas Resulted 08/28/16 00:44 Nasal Nares MRSA Culture - Final Staphylococcus Aureus - Mrsa Complete 08/28/16 00:44 Urine,Clean Catch Urine Culture - Final Escherichia Coli - Esbl Complete Current Medications Medications (Trade) Dose Ordered Sig/Joann Route PRN Reason Start Time Stop Time Status Last Admin Dose Admin Acetaminophen (Tylenol) 650 mg Q4H PRN ORAL fever 08/28/16 04:45 09/27/16 04:44 08/29/16 14:08 Al Hydroxide/Mg Hydroxide (Mylanta II) 30 ml Q6H PRN ORAL dyspepsia 08/28/16 04:45 09/27/16 04:44 Albuterol Sulfate (Proventil) 2.5 mg Q6HRT HHN 08/29/16 18:00 09/03/16 17:59 08/30/16 07:09 Atorvastatin Calcium (Lipitor) 10 mg BEDTIME ORAL 08/28/16 21:00 09/27/16 20:59 08/29/16 21:03 Dextrose (Dextrose 50%) STAT PRN IV Hypoglycemia 08/29/16 16:00 09/28/16 15:59 Dextrose/Sodium Chloride (D5 0.45% NS) 1,000 ml @ 75 mls/hr [id number] IV 08/28/16 17:40 09/27/16 17:39 08/29/16 19:00 Diphenhydramine HCl (Benadryl) 25 mg Q6H PRN ORAL Itching/Pruritis 08/28/16 04:45 09/27/16 04:44 Docusate Sodium (Colace) 100 mg THREE TIMES A DAY ORAL 08/28/16 13:00 09/27/16 12:59 08/29/16 18:01 Gabapentin (Neurontin) 100 mg TID ORAL 08/28/16 09:00 09/27/16 08:59 08/29/16 18:01 Hydralazine HCl 25 mg 25 mg Q6HR ORAL 08/29/16 12:00 09/28/16 11:59 08/30/16 05:51 Insulin Aspart (NovoLOG) BEFORE MEALS AND HS SUBQ 08/29/16 17:00 09/28/16 16:59 08/30/16 05:58 Lorazepam (Ativan 2mg/ml 1ml) 1 mg EVERY 4 HOURS PRN IV agitation 08/28/16 04:45 09/04/16 04:44 Memantine 5 mg 5 mg BID ORAL 08/28/16 09:00 09/27/16 08:59 08/28/16 18:27 Meropenem/Sodium Chloride (Merrem/Sodium Chloride) 110 ml @ 220 mls/hr Q8HR IVPB 08/29/16 14:30 09/03/16 14:29 08/30/16 05:51 Metoclopramide HCl (Reglan) 10 mg Q6H PRN IVP servere nausea 08/28/16 04:45 09/27/16 04:44 Nitroglycerin (Ntg) 0.4 mg Q5M X 3 DOSES PRN SL Prn Chest Pain 08/28/16 04:45 09/27/16 04:44 Ondansetron HCl (Zofran) 4 mg Q6H PRN IVP Nausea & Vomiting 08/28/16 04:45 09/27/16 04:44 Pantoprazole (Protonix) 40 mg DAILY IV 08/28/16 09:00 09/27/16 08:59 08/29/16 10:50 Polyethylene Glycol (Miralax) 17 gm BEDTIME ORAL 08/28/16 21:00 09/27/16 20:59 08/29/16 21:02 Polyethylene Glycol (Miralax) 17 gm HSPRN PRN ORAL Constipation 08/28/16 04:45 09/27/16 04:44 Temazepam (Restoril) 15 mg HSPRN PRN ORAL Insomnia 08/28/16 04:45 09/04/16 04:44 Satya RizzoMary Imogene Bassett HospitalMargo Torres NP August 30, 2016 07:36
[2016-08-30 08:00] LABS: CALCIUM 9.4 mg/dL (8.6-10.2); CHLORIDE 97 mEQ/L (98-107); CREATININE 0.7 mg/dL (0.5-0.9); SODIUM 137 mEQ/L (135-145)
[2016-08-30 08:06] VITALS: BP 119/69
[2016-08-30 08:10] LABS: HEMOLYSIS 2
[2016-08-30 08:29] LABS: ANION GAP 15 (5-15); CARBON DIOXIDE 25 mEQ/L (20-30)
[2016-08-30] MEDS: Docusate 100mg cap ORAL SCH ×3 (08:42→17:29)
[2016-08-30] MEDS: Memantine 10mg tab ORAL SCH ×2 (08:45→17:30)
[2016-08-30] MEDS: Pantoprazole Inj IV SCH (08:46)
--- NOTE | 2016-08-30 09:07 | Diagnostic Imaging Report ---
Indications: COUGH Technique: Portable AP chest Findings: Comparison: 08/28/16 Linear densities have developed left midlung and base. Left costophrenic angle less distinct. Right lung and pleura remain grossly clear. Cardiac silhouette remains enlarged. Pulmonary vasculature remains within normal limits. IMPRESSION: Development of left mid and lower lung subsegmental atelectasis Indistinctness of left costophrenic angle likely secondary to cardiomegaly and suboptimal inspiration. Small pleural effusion not excludable. Upright PA and lateral chest radiographs with better inspiratory effort and optimal technique recommended for more complete evaluation.
--- NOTE | 2016-08-30 10:28 | General Progress Note ---
Assessment/Plan Problem List: (1) Hepatitis C ICD Codes: B19.20 - Unspecified viral hepatitis C without hepatic coma SNOMED: 13506423 (2) COPD (chronic obstructive pulmonary disease) ICD Codes: J44.9 - Chronic obstructive pulmonary disease, unspecified SNOMED: 55527567 (3) Hypertension ICD Codes: I10 - Essential (primary) hypertension SNOMED: 03628658 (4) Pacemaker ICD Codes: Z95.0 - Presence of cardiac pacemaker SNOMED: 504905031 (5) Fever ICD Codes: R50.9 - Fever, unspecified SNOMED: 863542897 (6) Anemia ICD Codes: D64.9 - Anemia, unspecified SNOMED: 685443745 (7) Diabetes mellitus, type II ICD Codes: E11.9 - Type 2 diabetes mellitus without complications SNOMED: 46284094 Assessment/Plan GI procedures was canceled due to fever, elevated WBC, tachycardia plan possibly on Thursday if patient is stable fu labs advance diet Subjective ROS Limited/Unobtainable: Yes Allergies: Coded Allergies: ERYTHROMYCIN BASE (Verified Allergy, Intermediate, 08/28/16) CODEINE (Verified Allergy, Unknown, 08/28/16) MEPERIDINE (Verified Allergy, Unknown, 08/28/16) PENICILLINS (Verified Allergy, Unknown, 08/28/16) Subjective no abd pain no BM c/o hip pain Objective Last 24 Hour Vital Signs Date Time Temp Pulse Resp B/P Pulse Ox O2 Delivery O2 Flow Rate FiO2 08/30/16 08:06 98.1 104 18 119/69 99 Room Air 08/30/16 07:17 104 18 100 Room Air 21 08/30/16 07:09 21 08/30/16 07:09 105 18 99 Room Air 08/30/16 05:51 125/74 08/30/16 04:00 110 08/30/16 04:00 100.2 109 20 126/70 92 Room Air 4.0 08/30/16 01:15 103 18 99 Room Air 08/30/16 01:15 21 08/30/16 01:07 131/64 08/30/16 01:00 103 18 99 Room Air 21 08/30/16 00:00 103 08/30/16 00:00 99.7 101 20 131/64 94 Room Air 4.0 08/29/16 20:13 97.0 105 20 108/70 100 Room Air 08/29/16 20:00 105 08/29/16 19:25 21 08/29/16 19:25 Room Air 08/29/16 19:25 Room Air 08/29/16 18:00 101/59 08/29/16 16:00 98.2 98 17 101/59 98 Room Air 08/29/16 16:00 102 08/29/16 15:07 99.0 08/29/16 13:08 100.6 120 22 118/65 98 Nasal Cannula 4.0 08/29/16 12:00 117 08/29/16 12:00 98.0 118 17 110/51 98 Nasal Cannula 2.0 Intake and Output 08/29/16 08/30/16 19:00 07:00 Intake Total 465 ml 862.5 ml Output Total 1010 ml 800 ml Balance -545 ml 62.5 ml Intake Oral 240 ml IV Total 225 ml 862.5 ml Output Urine Total 1010 ml 800 ml # Voids 1 Laboratory Tests 08/30/16 06:30: White Blood Count 12.0H, Red Blood Count 3.83L, Hemoglobin 10.7L, Hematocrit 33.4L, Mean Corpuscular Volume 87, Mean Corpuscular Hemoglobin 27.9, Mean Corpuscular Hemoglobin Concent 32.0, Red Cell Distribution Width 13.2, Platelet Count 138L, Mean Platelet Volume 8.3, Neutrophils (%) (Auto) 70.7, Lymphocytes ( %) (Auto) 18.6L, Monocytes (%) (Auto) 8.8, Eosinophils (%) (Auto) 1.1, Basophils (%) (Auto) 0.8, Sodium Level 137, Potassium Level 4.0, Chloride Level 97L, Carbon Dioxide Level 25, Anion Gap 15, Blood Urea Nitrogen 14, Creatinine 0.7, Estimat Glomerular Filtration Rate , Glucose Level 129H, Calcium Level 9.4 Height (Feet): 5 Height (Inches): 5.00 Weight (Pounds): 230 General Appearance: alert EENT: normal ENT inspection Neck: supple Cardiovascular: normal rate Respiratory/Chest: chest wall non-tender, lungs clear Abdomen: normal bowel sounds, non tender, soft Extremities: non-tender MICHAEL SINGH August 30, 2016 10:28
[2016-08-30 11:13] VITALS: BP 124/72
--- NOTE | 2016-08-30 12:58 | Internal Med Progress Note ---
Subjective Date of Service: August 30, 2016 Physician Name Vázquez,Chema Attending Physician Zion Echevarria MD Current Medications Medications (Trade) Dose Ordered Sig/Joann Route PRN Reason Start Time Stop Time Status Last Admin Dose Admin Acetaminophen (Tylenol) 650 mg Q4H PRN ORAL fever 08/28/16 04:45 09/27/16 04:44 08/29/16 14:08 Al Hydroxide/Mg Hydroxide (Mylanta II) 30 ml Q6H PRN ORAL dyspepsia 08/28/16 04:45 09/27/16 04:44 Albuterol Sulfate (Proventil) 2.5 mg Q6HRT HHN 08/29/16 18:00 09/03/16 17:59 08/30/16 07:09 Atorvastatin Calcium (Lipitor) 10 mg BEDTIME ORAL 08/28/16 21:00 09/27/16 20:59 08/29/16 21:03 Dextrose (Dextrose 50%) STAT PRN IV Hypoglycemia 08/29/16 16:00 09/28/16 15:59 Dextrose/Sodium Chloride (D5 0.45% NS) 1,000 ml @ 75 mls/hr [id number] IV 08/28/16 17:40 09/27/16 17:39 08/29/16 19:00 Diphenhydramine HCl (Benadryl) 25 mg Q6H PRN ORAL Itching/Pruritis 08/28/16 04:45 09/27/16 04:44 Docusate Sodium (Colace) 100 mg THREE TIMES A DAY ORAL 08/28/16 13:00 09/27/16 12:59 08/30/16 08:42 Gabapentin (Neurontin) 100 mg TID ORAL 08/28/16 09:00 09/27/16 08:59 08/30/16 08:42 Hydralazine HCl 25 mg 25 mg Q6HR ORAL 08/29/16 12:00 09/28/16 11:59 08/30/16 05:51 Insulin Aspart (NovoLOG) BEFORE MEALS AND HS SUBQ 08/29/16 17:00 09/28/16 16:59 08/30/16 05:58 Lorazepam (Ativan 2mg/ml 1ml) 1 mg EVERY 4 HOURS PRN IV agitation 08/28/16 04:45 09/04/16 04:44 Memantine 5 mg 5 mg BID ORAL 08/28/16 09:00 09/27/16 08:59 08/30/16 08:45 Meropenem/Sodium Chloride (Merrem/Sodium Chloride) 110 ml @ 220 mls/hr Q8HR IVPB 08/29/16 14:30 09/03/16 14:29 08/30/16 05:51 Metoclopramide HCl (Reglan) 10 mg Q6H PRN IVP servere nausea 08/28/16 04:45 09/27/16 04:44 Nitroglycerin (Ntg) 0.4 mg Q5M X 3 DOSES PRN SL Prn Chest Pain 08/28/16 04:45 09/27/16 04:44 Ondansetron HCl (Zofran) 4 mg Q6H PRN IVP Nausea & Vomiting 08/28/16 04:45 09/27/16 04:44 Pantoprazole (Protonix) 40 mg DAILY IV 08/28/16 09:00 09/27/16 08:59 08/29/16 10:50 Polyethylene Glycol (Miralax) 17 gm BEDTIME ORAL 08/28/16 21:00 09/27/16 20:59 08/29/16 21:02 Polyethylene Glycol (Miralax) 17 gm HSPRN PRN ORAL Constipation 08/28/16 04:45 09/27/16 04:44 Temazepam (Restoril) 15 mg HSPRN PRN ORAL Insomnia 08/28/16 04:45 09/04/16 04:44 Allergies: Coded Allergies: ERYTHROMYCIN BASE (Verified Allergy, Intermediate, 08/28/16) CODEINE (Verified Allergy, Unknown, 08/28/16) MEPERIDINE (Verified Allergy, Unknown, 08/28/16) PENICILLINS (Verified Allergy, Unknown, 08/28/16) ROS Limited/Unobtainable: No Constitutional: Reports: chills, fever HEENT: Reports: no symptoms Cardiovascular: Reports: no symptoms Respiratory: Reports: no symptoms Gastrointestinal/Abdominal: Reports: no symptoms Genitourinary: Reports: no symptoms Neurologic/Psychiatric: Reports: no symptoms Subjective 75 YO F admitted for fever and gen weakness. Now UTI and sepsis. Cover for Int Ryan-Dr Echevarria. Objective Last Vital Signs Date Time Temp Pulse Resp B/P Pulse Ox O2 Delivery O2 Flow Rate FiO2 08/30/16 11:13 98.4 111 18 124/72 97 Room Air 08/30/16 07:17 21 08/30/16 04:00 4.0 Laboratory Tests Test 08/30/16 06:30 White Blood Count 12.0 K/UL (4.8-10.8) H Red Blood Count 3.83 M/UL (4.20-5.40) L Hemoglobin 10.7 G/DL (12.0-16.0) L Hematocrit 33.4 % (37.0-47.0) L Mean Corpuscular Volume 87 FL (80-99) Mean Corpuscular Hemoglobin 27.9 PG (27.0-31.0) Mean Corpuscular Hemoglobin Concent 32.0 G/DL (32.0-36.0) Red Cell Distribution Width 13.2 % (11.6-14.8) Platelet Count 138 K/UL (150-450) L Mean Platelet Volume 8.3 FL (6.5-10.1) Neutrophils (%) (Auto) 70.7 % (45.0-75.0) Lymphocytes (%) (Auto) 18.6 % (20.0-45.0) L Monocytes (%) (Auto) 8.8 % (1.0-10.0) Eosinophils (%) (Auto) 1.1 % (0.0-3.0) Basophils (%) (Auto) 0.8 % (0.0-2.0) Sodium Level 137 mEQ/L (135-145) Potassium Level 4.0 mEQ/L (3.4-4.9) Chloride Level 97 mEQ/L (98-107) L Carbon Dioxide Level 25 mEQ/L (20-30) Anion Gap 15 (5-15) Blood Urea Nitrogen 14 mg/dL (7-23) Creatinine 0.7 mg/dL (0.5-0.9) Estimat Glomerular Filtration Rate mL/min (>60) Glucose Level 129 mg/dL (74-106) H Calcium Level 9.4 mg/dL (8.6-10.2) Microbiology Date/Time Source Procedure Growth Status 08/28/16 00:40 Blood Blood Culture - Preliminary Gram Negative Douglas Resulted 08/28/16 00:25 Blood Blood Culture - Preliminary Gram Negative Douglas Resulted 5/18/17 00:44 Nasal Nares MRSA Culture - Final Staphylococcus Aureus - Mrsa Complete 08/28/16 00:44 Urine,Clean Catch Urine Culture - Final Escherichia Coli - Esbl Complete 08/28/16 00:44 Rectum VRE Culture - Final Enterococcus Faecalis - Vre Complete Intake and Output 08/29/16 08/30/16 19:00 07:00 Intake Total 465 ml 862.5 ml Output Total 1010 ml 800 ml Balance -545 ml 62.5 ml Intake Oral 240 ml IV Total 225 ml 862.5 ml Output Urine Total 1010 ml 800 ml # Voids 1 Objective General: alert, cooperative, no distress, appears stated age Head: normocephalic, without obvious abnormality, atraumatic Eyes: conjunctivae/corneas clear. PERRL, EOM's intact Throat: lips, mucosa, and tongue normal. MMM Neck: supple, symmetrical, trachea midline, and no JVD Lungs: clear to auscultation bilaterally Heart: Sinus tachycardia; regular rhythm, S1, S2 normal, no murmur, click, rub or gallop Abdomen: soft, non-tender, non-distended, bowel sounds normal; no masses or organomegaly Extremities: extremities normal, atraumatic, no cyanosis or edema Pulses: 2+ and symmetric Skin: skin color, texture, turgor normal; no rashes or lesions Neurologic: grossly normal, no focal deficits Assessment/Plan Problem List: (1) Diabetes mellitus, type II Assessment & Plan: Continue novolog sliding scale. (2) Generalized weakness (3) Severe sepsis Assessment & Plan: Gram neg douglas. Await ID and Sens. See ID note. Cont meropenem for now. (4) Fever Assessment & Plan: Continues low grade. See ID note. D/C ertapenem; start Meropenem (5) UTI (urinary tract infection) Assessment & Plan: ESBL E. Coli. D/C ertapenem; start meropenem-see ID note. (6) Leukocytosis (7) Renal failure (8) Sick sinus syndrome Assessment & Plan: S/P pacemaker. Await interrogation. (9) Hypertension Assessment & Plan: Cont hydralazine (10) Hypercholesterolemia Assessment & Plan: Continue lipitor (11) COPD (chronic obstructive pulmonary disease) (12) Dysphagia (13) Sinus tachycardia Assessment & Plan: Await cardiology consult. (14) Toxic metabolic encephalopathy (15) Pacemaker Status: not improved CHEMA VÁZQUEZ August 30, 2016 12:58
--- NOTE | 2016-08-30 14:08 | Cardiac Electrophysiology PN ---
Subjective Subjective [id number] Objective Last 24 Hour Vital Signs Date Time Temp Pulse Resp B/P Pulse Ox O2 Delivery O2 Flow Rate FiO2 08/30/16 13:35 124/72 08/30/16 11:13 98.4 111 18 124/72 97 Room Air 08/30/16 08:06 98.1 104 18 119/69 99 Room Air 08/30/16 08:00 100 08/30/16 07:17 104 18 100 Room Air 08/30/16 07:09 21 08/30/16 07:09 105 18 99 Room Air 08/30/16 05:51 125/74 08/30/16 04:00 110 08/30/16 04:00 100.2 109 20 126/70 92 Room Air 4.0 08/30/16 01:15 103 18 99 Room Air 08/30/16 01:15 21 08/30/16 01:07 131/64 08/30/16 01:00 103 18 99 Room Air 08/30/16 00:00 103 08/30/16 00:00 99.7 101 20 131/64 94 Room Air 4.0 21 08/29/16 20:13 97.0 105 20 108/70 100 Room Air 08/29/16 20:00 105 08/29/16 19:25 21 08/29/16 19:25 Room Air 08/29/16 19:25 Room Air 08/29/16 18:00 101/59 08/29/16 16:00 98.2 98 17 101/59 98 Room Air 08/29/16 16:00 102 08/29/16 15:07 99.0 Intake and Output 08/29/16 08/30/16 19:00 07:00 Intake Total 465 ml 862.5 ml Output Total 1010 ml 800 ml Balance -545 ml 62.5 ml Intake Oral 240 ml IV Total 225 ml 862.5 ml Output Urine Total 1010 ml 800 ml # Voids 1 Laboratory Tests Test 08/30/16 06:30 White Blood Count 12.0 K/UL (4.8-10.8) H Red Blood Count 3.83 M/UL (4.20-5.40) L Hemoglobin 10.7 G/DL (12.0-16.0) L Hematocrit 33.4 % (37.0-47.0) L Mean Corpuscular Volume 87 FL (80-99) Mean Corpuscular Hemoglobin 27.9 PG (27.0-31.0) Mean Corpuscular Hemoglobin Concent 32.0 G/DL (32.0-36.0) Red Cell Distribution Width 13.2 % (11.6-14.8) Platelet Count 138 K/UL (150-450) L Mean Platelet Volume 8.3 FL (6.5-10.1) Neutrophils (%) (Auto) 70.7 % (45.0-75.0) Lymphocytes (%) (Auto) 18.6 % (20.0-45.0) L Monocytes (%) (Auto) 8.8 % (1.0-10.0) Eosinophils (%) (Auto) 1.1 % (0.0-3.0) Basophils (%) (Auto) 0.8 % (0.0-2.0) Sodium Level 137 mEQ/L (135-145) Potassium Level 4.0 mEQ/L (3.4-4.9) Chloride Level 97 mEQ/L (98-107) L Carbon Dioxide Level 25 mEQ/L (20-30) Anion Gap 15 (5-15) Blood Urea Nitrogen 14 mg/dL (7-23) Creatinine 0.7 mg/dL (0.5-0.9) Estimat Glomerular Filtration Rate mL/min (>60) Glucose Level 129 mg/dL (74-106) H Calcium Level 9.4 mg/dL (8.6-10.2) Microbiology Date/Time Source Procedure Growth Status 08/28/16 00:40 Blood Blood Culture - Preliminary Gram Negative Douglas Resulted 08/28/16 00:25 Blood Blood Culture - Preliminary Gram Negative Douglas Resulted 08/28/16 00:44 Nasal Nares MRSA Culture - Final Staphylococcus Aureus - Mrsa Complete 08/28/16 00:44 Urine,Clean Catch Urine Culture - Final Escherichia Coli - Esbl Complete 08/28/16 00:44 Rectum VRE Culture - Final Enterococcus Faecalis - Vre Complete JAMAAL LAWS August 30, 2016 14:08
[2016-08-30 15:16] VITALS: BP 106/60
[2016-08-30] MEDS ORDERED: NS 275 ML IVPB ONE (17:15)
[2016-08-30] MEDS ORDERED: Tubing IV Secondary IV ONE (18:57)
[2016-08-30 20:00] VITALS: BP 108/61
--- NOTE | 2016-08-30 20:46 | Consultation ---
DATE OF CONSULTATION: 08/30/2016 CARDIOLOGY CONSULTATION REFERRING PHYSICIAN: Zion Echevarria M.D. REASON FOR CONSULTATION: Management of hypertension and evaluation of the patient's pacemaker. HISTORY OF PRESENT ILLNESS: The patient is a 75-year-old lady with history of [employer] pacemaker, hypertension, hyperlipidemia, COPD, and diabetes, who is a resident of [facility]. The patient was having temperature of 101 degrees, as well as nonproductive cough and vomited couple of times. The patient was brought to the emergency room and was found to have urinary tract infection, and was started on IV antibiotics. In view of the patient's pacemaker, a Cardiology consultation was obtained for further evaluation and management. REVIEW OF SYSTEMS: Review of systems was performed and was negative other than what was mentioned in the history of present illness. PAST MEDICAL HISTORY: include: 1. Hypertension. 2. Diabetes. 3. Hyperlipidemia. 4. Sick sinus syndrome. 5. Status post [employer] pacemaker. 6. COPD. 7. DVT. MEDICATIONS: Per reconciliation form that also includes verapamil 240 mg daily, Lasix 40 mg daily, hydralazine 25 mg, Eliquis 2.5 mg b.i.d., Lipitor 10 mg daily, Aldactone 25 mg daily. ALLERGIES: The patient is allergic to erythromycin, , penicillin, and codeine. SOCIAL HISTORY: Does not smoke or drink alcohol. Resident of [facility] / [facility]. FAMILY HISTORY: Noncontributory. PHYSICAL EXAMINATION: VITAL SIGNS: Blood pressure is 124/72, pulse 110, respirations 18, and temperature 98.4 degrees. HEAD AND NECK: Showed no JVD. LUNGS: Clear. CARDIOVASCULAR: Shows regular S1 and S2 with no gallop or murmur. ABDOMEN: Soft. EXTREMITIES: No pitting edema. Pacemaker in left subclavian is intact. LABORATORY AND DIAGNOSTIC DATA: White count was as high as 20,000 on 08/28/2016 and today it down to 12, hemoglobin 10.7, hematocrit 33.5, and platelet count of 138,000. Sodium is 137, potassium 4.0, BUN of 14, creatinine 0.7, and glucose 129. Lipase 346. Troponin was negative. ASSESSMENT AND PLAN: 1. Status post [employer] pacemaker. The pacemaker will be interrogated for further evaluation and management. On telemetry, pacemaker is functioning normally. 2. History of cardiomyopathy with ejection fraction of 40%. The ejection fraction improved to 50% by echocardiogram. 3. Hypertension. Continue verapamil. 4. Bilateral lower extremity deep venous thrombosis. The patient is on Xarelto. 5. Hyperlipidemia, on Lipitor. 6. Urinary tract infection and sepsis with white count of 20,000, currently on intravenous antibiotics and meropenem. 7. Hypertension. I would discontinue hydralazine and resume the patient's verapamil, which was on the floor. Thank very much, Dr. Echevarria, for allowing me to participate in the care of this patient. Please do not hesitate to contact me for any questions regarding my evaluation. Juve Mayes M.D. DR: Chandler JOB#: [id number] CC:
[2016-08-30] MEDS: Miralax 17gm pkt ORAL SCH (20:59)
[2016-08-30] MEDS: D5 1/2NS 1,000 ML IV SCH (22:46)
--- NOTE | 2016-08-31 01:19 | Infectious Diseases Prog Note ---
Assessment/Plan Assessment/Plan ASSESSMENT: 75 y/o female with: Bacteremia : ESBL EColi Probable complicated UTI - UCx ESBL EColi - US: Mild right renal collecting system dilation, nonspecific, stable. Bilateral renal cortical cysts. Bilateral renal echogenic non-shadowing foci-- stones versus angiomyolipomas versus other nonspecific specular reflectors. 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 Severe sepsis - improved lactic acidosis Leukocytosis - improved Fever - improved Left nephrolithiasis DM2 - HbA1c 7% Gastroparesis PCN, Emycin allergies - tolerating invanz Full Code PLAN: continue invanz d# 3 f/u cultures CT of Abd w cont when Cr improves EGD per GI monitor CBC, temperatures monitor BMP late Entry date 08/30 Subjective Constitutional: Denies: anorexia, chills, drenching sweats, fatigue, fever, no symptoms, other Allergies: Coded Allergies: ERYTHROMYCIN BASE (Verified Allergy, Intermediate, 08/28/16) CODEINE (Verified Allergy, Unknown, 08/28/16) MEPERIDINE (Verified Allergy, Unknown, 08/28/16) PENICILLINS (Verified Allergy, Unknown, 08/28/16) Objective Vital Signs Last 24 Hour Vital Signs Date Time Temp Pulse Resp B/P Pulse Ox O2 Delivery O2 Flow Rate FiO2 08/30/16 20:00 97.5 95 17 108/61 100 Room Air 08/30/16 19:32 82 16 98 Room Air 08/30/16 19:21 104 15 97 Room Air 21 08/30/16 15:28 88 08/30/16 15:16 96.6 88 18 106/60 98 Room Air 08/30/16 14:10 78 18 98 Room Air 08/30/16 14:00 91 18 96 Room Air 08/30/16 13:35 124/72 08/30/16 12:00 96 08/30/16 11:13 98.4 111 18 124/72 97 Room Air 08/30/16 08:06 98.1 104 18 119/69 99 Room Air 08/30/16 08:00 100 08/30/16 07:17 104 18 100 Room Air 21 08/30/16 07:09 21 08/30/16 07:09 105 18 99 Room Air 21 08/30/16 05:51 125/74 08/30/16 04:00 110 08/30/16 04:00 100.2 109 20 126/70 92 Room Air 4.0 21 Height (Feet): 5 Height (Inches): 5.00 Weight (Pounds): 230 HEENT: atraumatic Respiratory/Chest: lungs clear Cardiovascular: normal rate Abdomen: no organomegaly Laboratory Tests Test 08/30/16 06:30 White Blood Count 12.0 K/UL (4.8-10.8) H Red Blood Count 3.83 M/UL (4.20-5.40) L Hemoglobin 10.7 G/DL (12.0-16.0) L Hematocrit 33.4 % (37.0-47.0) L Mean Corpuscular Volume 87 FL (80-99) Mean Corpuscular Hemoglobin 27.9 PG (27.0-31.0) Mean Corpuscular Hemoglobin Concent 32.0 G/DL (32.0-36.0) Red Cell Distribution Width 13.2 % (11.6-14.8) Platelet Count 138 K/UL (150-450) L Mean Platelet Volume 8.3 FL (6.5-10.1) Neutrophils (%) (Auto) 70.7 % (45.0-75.0) Lymphocytes (%) (Auto) 18.6 % (20.0-45.0) L Monocytes (%) (Auto) 8.8 % (1.0-10.0) Eosinophils (%) (Auto) 1.1 % (0.0-3.0) Basophils (%) (Auto) 0.8 % (0.0-2.0) Sodium Level 137 mEQ/L (135-145) Potassium Level 4.0 mEQ/L (3.4-4.9) Chloride Level 97 mEQ/L (98-107) L Carbon Dioxide Level 25 mEQ/L (20-30) Anion Gap 15 (5-15) Blood Urea Nitrogen 14 mg/dL (7-23) Creatinine 0.7 mg/dL (0.5-0.9) Estimat Glomerular Filtration Rate mL/min (>60) Glucose Level 129 mg/dL (74-106) H Calcium Level 9.4 mg/dL (8.6-10.2) Current Medications Medications (Trade) Dose Ordered Sig/Joann Route PRN Reason Start Time Stop Time Status Last Admin Dose Admin Acetaminophen (Tylenol) 650 mg Q4H PRN ORAL fever 08/28/16 04:45 09/27/16 04:44 08/29/16 14:08 Al Hydroxide/Mg Hydroxide (Mylanta II) 30 ml Q6H PRN ORAL dyspepsia 08/28/16 04:45 09/27/16 04:44 Albuterol Sulfate (Proventil) 2.5 mg Q6HRT HHN 08/29/16 18:00 09/03/16 17:59 08/30/16 19:21 Atorvastatin Calcium (Lipitor) 10 mg BEDTIME ORAL 08/28/16 21:00 09/27/16 20:59 08/30/16 20:59 Dextrose (Dextrose 50%) STAT PRN IV Hypoglycemia 08/29/16 16:00 09/28/16 15:59 Dextrose/Sodium Chloride (D5 0.45% NS) 1,000 ml @ 75 mls/hr [id number] IV 08/28/16 17:40 09/27/16 17:39 08/30/16 22:46 Diphenhydramine HCl (Benadryl) 25 mg Q6H PRN ORAL Itching/Pruritis 08/28/16 04:45 09/27/16 04:44 Docusate Sodium (Colace) 100 mg THREE TIMES A DAY ORAL 08/28/16 13:00 09/27/16 12:59 08/30/16 17:29 Gabapentin (Neurontin) 100 mg TID ORAL 08/28/16 09:00 09/27/16 08:59 08/30/16 17:29 Insulin Aspart (NovoLOG) BEFORE MEALS AND HS SUBQ 08/29/16 17:00 09/28/16 16:59 08/30/16 21:05 Lorazepam (Ativan 2mg/ml 1ml) 1 mg EVERY 4 HOURS PRN IV agitation 08/28/16 04:45 09/04/16 04:44 Memantine 5 mg 5 mg BID ORAL 08/28/16 09:00 09/27/16 08:59 08/30/16 17:30 Meropenem/Sodium Chloride (Merrem/Sodium Chloride) 110 ml @ 220 mls/hr Q8HR IVPB 08/29/16 14:30 09/03/16 14:29 08/30/16 21:00 Metoclopramide HCl (Reglan) 10 mg Q6H PRN IVP servere nausea 08/28/16 04:45 09/27/16 04:44 Nitroglycerin (Ntg) 0.4 mg Q5M X 3 DOSES PRN SL Prn Chest Pain 08/28/16 04:45 09/27/16 04:44 Ondansetron HCl (Zofran) 4 mg Q6H PRN IVP Nausea & Vomiting 08/28/16 04:45 09/27/16 04:44 Pantoprazole (Protonix) 40 mg DAILY IV 08/28/16 09:00 09/27/16 08:59 08/29/16 10:50 Polyethylene Glycol (Miralax) 17 gm HSPRN PRN ORAL Constipation 08/28/16 04:45 09/27/16 04:44 Polyethylene Glycol 17 gm 17 gm BEDTIME ORAL 08/28/16 21:00 09/27/16 20:59 08/30/16 20:59 Temazepam (Restoril) 15 mg HSPRN PRN ORAL Insomnia 08/28/16 04:45 09/04/16 04:44 Verapamil HCl (Calan SR) 240 mg DAILY ORAL 08/31/16 09:00 09/30/16 08:59 FAHAD SMITH M.D. August 31, 2016 01:19
[2016-08-31] MEDS: Albuterol ud Inhalation HHN SCH ×4 (03:16→20:37)
[2016-08-31 04:00] VITALS: BP 109/65
[2016-08-31 05:40] LABS: BASOPHILS % (AUTO) 1.4 % (0.0-2.0); EOSINOPHILS % (AUTO) 2.7 % (0.0-3.0); MEAN CORPUSCULAR HEMOGLOBIN 28.1 PG (27.0-31.0); MEAN CORPUSCULAR HGB CONC 32.4 G/DL (32.0-36.0); MEAN CORPUSCULAR VOLUME 87 FL (80-99); MEAN PLATELET VOLUME 8.1 FL (6.5-10.1); MONOCYTES % (AUTO) 7.3 % (1.0-10.0); NEUTROPHILS % (AUTO) 60.5 % (45.0-75.0); PLATELET COUNT 146 K/UL (150-450); RED BLOOD COUNT 3.86 M/UL (4.20-5.40); RED CELL DISTRIBUTION WIDTH 12.8 % (11.6-14.8); WHITE BLOOD COUNT 7.3 K/UL (4.8-10.8)
[2016-08-31] MEDS: Meropenem 1 GM in NS 110 ML IVPB SCH ×3 (05:51→21:42)
[2016-08-31] MEDS: NovoLOG Insulin Flexpen SUBQ SCH ×3 (06:21→17:24)
[2016-08-31 06:43] LABS: AMYLASE 155 U/L (10-110); LIPASE 34 U/L (< 60)
[2016-08-31 06:45] LABS: ANION GAP 15 (5-15); CALCIUM 9.4 mg/dL (8.6-10.2); CARBON DIOXIDE 26 mEQ/L (20-30); CHLORIDE 99 mEQ/L (98-107); CREATININE 0.6 mg/dL (0.5-0.9); HEMOLYSIS 23; POTASSIUM 4.1 mEQ/L (3.4-4.9); SODIUM 140 mEQ/L (135-145)
[2016-08-31 06:47] LABS: HEMOLYSIS 29; IRON 49 ug/dL (37-145); TOTAL IRON BINDING CAPACITY 259 ug/dL (250-400)
[2016-08-31 08:00] VITALS: BP 118/59
--- NOTE | 2016-08-31 08:13 | General Progress Note ---
Assessment/Plan Problem List: (1) Hepatitis C ICD Codes: B19.20 - Unspecified viral hepatitis C without hepatic coma SNOMED: 26166608 (2) COPD (chronic obstructive pulmonary disease) ICD Codes: J44.9 - Chronic obstructive pulmonary disease, unspecified SNOMED: 96292893 (3) Hypertension ICD Codes: I10 - Essential (primary) hypertension SNOMED: 27259941 (4) Pacemaker ICD Codes: Z95.0 - Presence of cardiac pacemaker SNOMED: 551141880 (5) Fever ICD Codes: R50.9 - Fever, unspecified SNOMED: 615470481 (6) Anemia ICD Codes: D64.9 - Anemia, unspecified SNOMED: 287871155 (7) Diabetes mellitus, type II ICD Codes: E11.9 - Type 2 diabetes mellitus without complications SNOMED: 86549870 Assessment/Plan GI procedures was canceled due to fever, elevated WBC, tachycardia plan on Thursday fu labs Subjective ROS Limited/Unobtainable: No Allergies: Coded Allergies: ERYTHROMYCIN BASE (Verified Allergy, Intermediate, 08/28/16) CODEINE (Verified Allergy, Unknown, 08/28/16) MEPERIDINE (Verified Allergy, Unknown, 08/28/16) PENICILLINS (Verified Allergy, Unknown, 08/28/16) Subjective no abd pain no BM c/o hip pain Objective Last 24 Hour Vital Signs Date Time Temp Pulse Resp B/P Pulse Ox O2 Delivery O2 Flow Rate FiO2 08/31/16 07:20 58 16 99 Room Air 08/31/16 06:20 56 16 96 Room Air 08/31/16 04:00 97.2 88 18 109/65 100 Room Air 08/31/16 04:00 82 08/31/16 03:55 85 16 99 Room Air 08/31/16 03:16 85 15 96 Room Air 08/31/16 00:00 87 08/30/16 20:00 97.5 95 17 108/61 100 Room Air 08/30/16 20:00 87 08/30/16 20:00 58 08/30/16 19:32 82 16 98 Room Air 08/30/16 19:21 104 15 97 Room Air 21 08/30/16 15:28 88 08/30/16 15:16 96.6 88 18 106/60 98 Room Air 08/30/16 14:10 78 18 98 Room Air 08/30/16 14:00 91 18 96 Room Air 08/30/16 13:35 124/72 08/30/16 12:00 96 08/30/16 11:13 98.4 111 18 124/72 97 Room Air Intake and Output 08/30/16 08/31/16 19:00 07:00 Intake Total 650 ml 990 ml Output Total 1100 ml Balance -450 ml 990 ml Intake Oral 390 ml 100 ml IV Total 260 ml 890 ml Output Urine Total 1100 ml # Voids 2 Laboratory Tests 08/31/16 04:15: White Blood Count 7.3, Red Blood Count 3.86L, Hemoglobin 10.9L, Hematocrit 33.5L , Mean Corpuscular Volume 87, Mean Corpuscular Hemoglobin 28.1, Mean Corpuscular Hemoglobin Concent 32.4, Red Cell Distribution Width 12.8, Platelet Count 146L, Mean Platelet Volume 8.1, Neutrophils (%) (Auto) 60.5, Lymphocytes ( %) (Auto) 28.0, Monocytes (%) (Auto) 7.3, Eosinophils (%) (Auto) 2.7, Basophils (%) (Auto) 1.4, Sodium Level 140, Potassium Level 4.1, Chloride Level 99, Carbon Dioxide Level 26, Anion Gap 15, Blood Urea Nitrogen 9, Creatinine 0.6, Estimat Glomerular Filtration Rate , Glucose Level 185H, Lactic Acid Level 1.30 , Calcium Level 9.4, Iron Level 49, Total Iron Binding Capacity 259, Percent Iron Saturation 19, Unsaturated Iron Binding 210, Amylase Level 155H, Lipase 34 Height (Feet): 5 Height (Inches): 5.00 Weight (Pounds): 230 General Appearance: alert EENT: normal ENT inspection Neck: supple Cardiovascular: normal rate Respiratory/Chest: decreased breath sounds Abdomen: normal bowel sounds, non tender, soft Extremities: non-tender MICHAEL SINGH August 31, 2016 08:13
--- NOTE | 2016-08-31 08:40 | Pulmonology Progress Note ---
Assessment/Plan Assessment/Plan ASSESSMENT severe sepsis with bacteremia gram negative bacteremia ( E coli ESBL) UTI E coli ESBL COPD pacemaker L chest acute encephalopathy Hx of HTN Hep C ARF DM diabetes induced gastroparesis PLAN OF CARE tele IVF abx ID follows urine cx + E coli ESBL, blood cx +E coli ESBL ( bacteremia clearly 2 to UTI) GI follows EGD cancelled 08/29 due to fever and tachy, possible Thursday abdominal US c/w chronic hepatocellular disease outpt Rx for hep C Reglan prn no MRCP -pt with pacemaker Xarelto on hold in lieu of pending GI procedure, to be resumed after procedure bowel regimen creat down to normal, ARF likely prerenal 2 to dehydration O2 HHN prn CXR no new abnormalities BS management with SS of insulin, ThV9v-2.6. optimize as needed continue statin DVT, GI prophylaxis case discussed and evaluated by supervising physician Subjective Allergies: Coded Allergies: ERYTHROMYCIN BASE (Verified Allergy, Intermediate, 08/28/16) CODEINE (Verified Allergy, Unknown, 08/28/16) MEPERIDINE (Verified Allergy, Unknown, 08/28/16) PENICILLINS (Verified Allergy, Unknown, 08/28/16) Subjective afebrile, leukocytosis resolved denies chest pain, SOB tachy resolved no n/v/ occasional abdominal pain Objective Last 24 Hour Vital Signs Date Time Temp Pulse Resp B/P Pulse Ox O2 Delivery O2 Flow Rate FiO2 08/31/16 07:20 58 16 99 Room Air 08/31/16 06:20 56 16 96 Room Air 08/31/16 04:00 97.2 88 18 109/65 100 Room Air 08/31/16 04:00 82 08/31/16 03:55 85 16 99 Room Air 08/31/16 03:16 85 15 96 Room Air 08/31/16 00:00 87 08/30/16 20:00 97.5 95 17 108/61 100 Room Air 08/30/16 20:00 87 08/30/16 20:00 58 08/30/16 19:32 82 16 98 Room Air 08/30/16 19:21 104 15 97 Room Air 08/30/16 15:28 88 08/30/16 15:16 96.6 88 18 106/60 98 Room Air 08/30/16 14:10 78 18 98 Room Air 08/30/16 14:00 91 18 96 Room Air 08/30/16 13:35 124/72 08/30/16 12:00 96 08/30/16 11:13 98.4 111 18 124/72 97 Room Air Intake and Output 08/30/16 08/31/16 19:00 07:00 Intake Total 650 ml 990 ml Output Total 1100 ml Balance -450 ml 990 ml Intake Oral 390 ml 100 ml IV Total 260 ml 890 ml Output Urine Total 1100 ml # Voids 2 Objective General Appearance: no acute distress, other - awake, alert, oriented elderly AA female, obese HEENT: normocephalic, atraumatic, anicteric, mucous membranes moist Respiratory/Chest: lungs clear, no respiratory distress, no accessory muscle use, L chest pacemaker Cardiovascular: no JVD, V pacing Abdomen: normal bowel sounds, soft, non tender - obese Extremities: no edema Neurologic/Psychiatric: abnormal gait, alert, responsive Laboratory Tests 08/31/16 04:15: White Blood Count 7.3, Red Blood Count 3.86L, Hemoglobin 10.9L, Hematocrit 33.5L , Mean Corpuscular Volume 87, Mean Corpuscular Hemoglobin 28.1, Mean Corpuscular Hemoglobin Concent 32.4, Red Cell Distribution Width 12.8, Platelet Count 146L, Mean Platelet Volume 8.1, Neutrophils (%) (Auto) 60.5, Lymphocytes ( %) (Auto) 28.0, Monocytes (%) (Auto) 7.3, Eosinophils (%) (Auto) 2.7, Basophils (%) (Auto) 1.4, Sodium Level 140, Potassium Level 4.1, Chloride Level 99, Carbon Dioxide Level 26, Anion Gap 15, Blood Urea Nitrogen 9, Creatinine 0.6, Estimat Glomerular Filtration Rate , Glucose Level 185H, Lactic Acid Level 1.30 , Calcium Level 9.4, Iron Level 49, Total Iron Binding Capacity 259, Percent Iron Saturation 19, Unsaturated Iron Binding 210, Amylase Level 155H, Lipase 34 Current Medications Medications (Trade) Dose Ordered Sig/Joann Route PRN Reason Start Time Stop Time Status Last Admin Dose Admin Acetaminophen (Tylenol) 650 mg Q4H PRN ORAL fever 08/28/16 04:45 09/27/16 04:44 08/29/16 14:08 Al Hydroxide/Mg Hydroxide (Mylanta II) 30 ml Q6H PRN ORAL dyspepsia 08/28/16 04:45 09/27/16 04:44 Albuterol Sulfate (Proventil) 2.5 mg Q6HRT HHN 08/29/16 18:00 09/03/16 17:59 08/31/16 07:25 Atorvastatin Calcium (Lipitor) 10 mg BEDTIME ORAL 08/28/16 21:00 09/27/16 20:59 08/30/16 20:59 Dextrose (Dextrose 50%) STAT PRN IV Hypoglycemia 08/29/16 16:00 09/28/16 15:59 Dextrose/Sodium Chloride (D5 0.45% NS) 1,000 ml @ 75 mls/hr [id number] IV 08/28/16 17:40 09/27/16 17:39 08/30/16 22:46 Diphenhydramine HCl (Benadryl) 25 mg Q6H PRN ORAL Itching/Pruritis 08/28/16 04:45 09/27/16 04:44 Docusate Sodium (Colace) 100 mg THREE TIMES A DAY ORAL 08/28/16 13:00 09/27/16 12:59 08/30/16 17:29 Gabapentin (Neurontin) 100 mg TID ORAL 08/28/16 09:00 09/27/16 08:59 08/30/16 17:29 Insulin Aspart (NovoLOG) BEFORE MEALS AND HS SUBQ 08/29/16 17:00 09/28/16 16:59 08/31/16 06:21 Lorazepam (Ativan 2mg/ml 1ml) 1 mg EVERY 4 HOURS PRN IV agitation 08/28/16 04:45 09/04/16 04:44 Memantine 5 mg 5 mg BID ORAL 08/28/16 09:00 09/27/16 08:59 08/30/16 17:30 Meropenem/Sodium Chloride (Merrem/Sodium Chloride) 110 ml @ 220 mls/hr Q8HR IVPB 08/29/16 14:30 09/03/16 14:29 08/31/16 05:51 Metoclopramide HCl (Reglan) 10 mg Q6H PRN IVP servere nausea 08/28/16 04:45 09/27/16 04:44 Nitroglycerin (Ntg) 0.4 mg Q5M X 3 DOSES PRN SL Prn Chest Pain 08/28/16 04:45 09/27/16 04:44 Ondansetron HCl (Zofran) 4 mg Q6H PRN IVP Nausea & Vomiting 08/28/16 04:45 09/27/16 04:44 Pantoprazole (Protonix) 40 mg DAILY IV 08/28/16 09:00 09/27/16 08:59 08/29/16 10:50 Polyethylene Glycol (Miralax) 17 gm HSPRN PRN ORAL Constipation 08/28/16 04:45 09/27/16 04:44 Polyethylene Glycol 17 gm 17 gm BEDTIME ORAL 08/28/16 21:00 09/27/16 20:59 08/30/16 20:59 Polyethylene Glycol/ Electrolytes (Nulytely) 4,000 ml ONCE ONCE ORAL 08/31/16 14:00 08/31/16 14:01 UNV Temazepam (Restoril) 15 mg HSPRN PRN ORAL Insomnia 08/28/16 04:45 09/04/16 04:44 Verapamil HCl (Calan SR) 240 mg DAILY ORAL 08/31/16 09:00 09/30/16 08:59 Satya ([facility])Margo NP August 31, 2016 08:40
--- NOTE | 2016-08-31 09:39 | Infectious Diseases Prog Note ---
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 P; continue Meropenem Subjective ROS Limited/Unobtainable: No Constitutional: Reports: no symptoms Respiratory: Reports: dry cough Gastrointestinal/Abdominal: Reports: other - epigastric pain Genitourinary: Reports: no symptoms Allergies: Coded Allergies: ERYTHROMYCIN BASE (Verified Allergy, Intermediate, 08/28/16) CODEINE (Verified Allergy, Unknown, 08/28/16) MEPERIDINE (Verified Allergy, Unknown, 08/28/16) PENICILLINS (Verified Allergy, Unknown, 08/28/16) Objective Vital Signs Last 24 Hour Vital Signs Date Time Temp Pulse Resp B/P Pulse Ox O2 Delivery O2 Flow Rate FiO2 08/31/16 08:00 98 08/31/16 07:20 58 16 99 Room Air 08/31/16 06:20 56 16 96 Room Air 21 08/31/16 04:00 97.2 88 18 109/65 100 Room Air 08/31/16 04:00 82 08/31/16 03:55 85 16 99 Room Air 08/31/16 03:16 85 15 96 Room Air 21 08/31/16 00:00 87 08/30/16 20:00 97.5 95 17 108/61 100 Room Air 08/30/16 20:00 87 08/30/16 20:00 58 08/30/16 19:32 82 16 98 Room Air 08/30/16 19:21 104 15 97 Room Air 21 08/30/16 15:28 88 08/30/16 15:16 96.6 88 18 106/60 98 Room Air 08/30/16 14:10 78 18 98 Room Air 08/30/16 14:00 91 18 96 Room Air 08/30/16 13:35 124/72 08/30/16 12:00 96 08/30/16 11:13 98.4 111 18 124/72 97 Room Air Height (Feet): 5 Height (Inches): 5.00 Weight (Pounds): 230 General Appearance: no acute distress HEENT: mucous membranes moist Respiratory/Chest: lungs clear Cardiovascular: normal rate Abdomen: soft, non tender Extremities: no edema Neurologic/Psychiatric: alert, oriented x 3, responsive Laboratory Tests Test 08/31/16 04:15 White Blood Count 7.3 K/UL (4.8-10.8) Red Blood Count 3.86 M/UL (4.20-5.40) L Hemoglobin 10.9 G/DL (12.0-16.0) L Hematocrit 33.5 % (37.0-47.0) L Mean Corpuscular Volume 87 FL (80-99) Mean Corpuscular Hemoglobin 28.1 PG (27.0-31.0) Mean Corpuscular Hemoglobin Concent 32.4 G/DL (32.0-36.0) Red Cell Distribution Width 12.8 % (11.6-14.8) Platelet Count 146 K/UL (150-450) L Mean Platelet Volume 8.1 FL (6.5-10.1) Neutrophils (%) (Auto) 60.5 % (45.0-75.0) Lymphocytes (%) (Auto) 28.0 % (20.0-45.0) Monocytes (%) (Auto) 7.3 % (1.0-10.0) Eosinophils (%) (Auto) 2.7 % (0.0-3.0) Basophils (%) (Auto) 1.4 % (0.0-2.0) Sodium Level 140 mEQ/L (135-145) Potassium Level 4.1 mEQ/L (3.4-4.9) Chloride Level 99 mEQ/L (98-107) Carbon Dioxide Level 26 mEQ/L (20-30) Anion Gap 15 (5-15) Blood Urea Nitrogen 9 mg/dL (7-23) Creatinine 0.6 mg/dL (0.5-0.9) Estimat Glomerular Filtration Rate mL/min (>60) Glucose Level 185 mg/dL (74-106) H Lactic Acid Level 1.30 mmol/L (0.66-2.22) Calcium Level 9.4 mg/dL (8.6-10.2) Iron Level 49 ug/dL (37-145) Total Iron Binding Capacity 259 ug/dL (250-400) Percent Iron Saturation 19 % (15-50) Unsaturated Iron Binding 210 ug/dL (112-346) Amylase Level 155 U/L (10-110) H Lipase 34 U/L (< 60) Current Medications Medications (Trade) Dose Ordered Sig/Joann Route PRN Reason Start Time Stop Time Status Last Admin Dose Admin Acetaminophen (Tylenol) 650 mg Q4H PRN ORAL fever 08/28/16 04:45 09/27/16 04:44 08/29/16 14:08 Al Hydroxide/Mg Hydroxide (Mylanta II) 30 ml Q6H PRN ORAL dyspepsia 08/28/16 04:45 09/27/16 04:44 Albuterol Sulfate (Proventil) 2.5 mg Q6HRT HHN 08/29/16 18:00 09/03/16 17:59 08/31/16 07:25 Atorvastatin Calcium (Lipitor) 10 mg BEDTIME ORAL 08/28/16 21:00 09/27/16 20:59 08/30/16 20:59 Dextrose (Dextrose 50%) STAT PRN IV Hypoglycemia 08/29/16 16:00 09/28/16 15:59 Dextrose/Sodium Chloride (D5 0.45% NS) 1,000 ml @ 75 mls/hr [id number] IV 08/28/16 17:40 09/27/16 17:39 08/30/16 22:46 Diphenhydramine HCl (Benadryl) 25 mg Q6H PRN ORAL Itching/Pruritis 08/28/16 04:45 09/27/16 04:44 Docusate Sodium (Colace) 100 mg THREE TIMES A DAY ORAL 08/28/16 13:00 09/27/16 12:59 08/30/16 17:29 Gabapentin (Neurontin) 100 mg TID ORAL 08/28/16 09:00 09/27/16 08:59 08/30/16 17:29 Insulin Aspart (NovoLOG) BEFORE MEALS AND HS SUBQ 08/29/16 17:00 09/28/16 16:59 08/31/16 06:21 Lorazepam (Ativan 2mg/ml 1ml) 1 mg EVERY 4 HOURS PRN IV agitation 08/28/16 04:45 09/04/16 04:44 Memantine 5 mg 5 mg BID ORAL 08/28/16 09:00 09/27/16 08:59 08/30/16 17:30 Meropenem/Sodium Chloride (Merrem/Sodium Chloride) 110 ml @ 220 mls/hr Q8HR IVPB 08/29/16 14:30 09/03/16 14:29 08/31/16 05:51 Metoclopramide HCl (Reglan) 10 mg Q6H PRN IVP servere nausea 08/28/16 04:45 09/27/16 04:44 Nitroglycerin (Ntg) 0.4 mg Q5M X 3 DOSES PRN SL Prn Chest Pain 08/28/16 04:45 09/27/16 04:44 Ondansetron HCl (Zofran) 4 mg Q6H PRN IVP Nausea & Vomiting 08/28/16 04:45 09/27/16 04:44 Pantoprazole (Protonix) 40 mg DAILY IV 08/28/16 09:00 09/27/16 08:59 08/29/16 10:50 Polyethylene Glycol (Miralax) 17 gm HSPRN PRN ORAL Constipation 08/28/16 04:45 09/27/16 04:44 Polyethylene Glycol 17 gm 17 gm BEDTIME ORAL 08/28/16 21:00 09/27/16 20:59 08/30/16 20:59 Polyethylene Glycol/ Electrolytes (Nulytely) 4,000 ml ONCE ONCE ORAL 08/31/16 14:00 08/31/16 14:01 Temazepam (Restoril) 15 mg HSPRN PRN ORAL Insomnia 08/28/16 04:45 09/04/16 04:44 Verapamil HCl (Calan SR) 240 mg DAILY ORAL 08/31/16 09:00 09/30/16 08:59 JUAQUIN PATTON August 31, 2016 09:39
[2016-08-31] MEDS: Docusate 100mg cap ORAL SCH ×3 (10:13→17:16)
[2016-08-31] MEDS: Memantine 10mg tab ORAL SCH ×2 (10:13→17:16)
[2016-08-31] MEDS: Verapamil SR 240mg tab ORAL SCH (10:13)
[2016-08-31] MEDS: Pantoprazole Inj IV SCH (10:14)
[2016-08-31 12:00] VITALS: BP 119/73
[2016-08-31] MEDS: D5 1/2NS 1,000 ML IV SCH (13:28)
[2016-08-31] MEDS ORDERED: Nulytely 4L ORAL ONE (14:00)
[2016-08-31 16:00] VITALS: BP 116/69
--- NOTE | 2016-08-31 16:31 | Internal Med Progress Note ---
Subjective Date of Service: August 31, 2016 Physician Name Vázquez,Chema Attending Physician Zion Echevarria MD Current Medications Medications (Trade) Dose Ordered Sig/Joann Route PRN Reason Start Time Stop Time Status Last Admin Dose Admin Acetaminophen (Tylenol) 650 mg Q4H PRN ORAL fever 08/28/16 04:45 09/27/16 04:44 08/29/16 14:08 Al Hydroxide/Mg Hydroxide (Mylanta II) 30 ml Q6H PRN ORAL dyspepsia 08/28/16 04:45 09/27/16 04:44 Albuterol Sulfate (Proventil) 2.5 mg Q6HRT HHN 08/29/16 18:00 09/03/16 17:59 08/31/16 13:57 Atorvastatin Calcium (Lipitor) 10 mg BEDTIME ORAL 08/28/16 21:00 09/27/16 20:59 08/30/16 20:59 Dextrose (Dextrose 50%) STAT PRN IV Hypoglycemia 08/29/16 16:00 09/28/16 15:59 Dextrose/Sodium Chloride (D5 0.45% NS) 1,000 ml @ 75 mls/hr [id number] IV 08/28/16 17:40 09/27/16 17:39 08/31/16 13:28 Diphenhydramine HCl (Benadryl) 25 mg Q6H PRN ORAL Itching/Pruritis 08/28/16 04:45 09/27/16 04:44 Docusate Sodium (Colace) 100 mg THREE TIMES A DAY ORAL 08/28/16 13:00 09/27/16 12:59 08/31/16 13:29 Gabapentin (Neurontin) 100 mg TID ORAL 08/28/16 09:00 09/27/16 08:59 08/31/16 13:29 Insulin Aspart (NovoLOG) BEFORE MEALS AND HS SUBQ 08/29/16 17:00 09/28/16 16:59 08/31/16 06:21 Lorazepam (Ativan 2mg/ml 1ml) 1 mg EVERY 4 HOURS PRN IV agitation 08/28/16 04:45 09/04/16 04:44 Memantine 5 mg 5 mg BID ORAL 08/28/16 09:00 09/27/16 08:59 08/31/16 10:13 Meropenem/Sodium Chloride (Merrem/Sodium Chloride) 110 ml @ 220 mls/hr Q8HR IVPB 08/29/16 14:30 09/03/16 14:29 08/31/16 14:15 Metoclopramide HCl (Reglan) 10 mg Q6H PRN IVP servere nausea 08/28/16 04:45 09/27/16 04:44 Nitroglycerin (Ntg) 0.4 mg Q5M X 3 DOSES PRN SL Prn Chest Pain 08/28/16 04:45 09/27/16 04:44 Ondansetron HCl (Zofran) 4 mg Q6H PRN IVP Nausea & Vomiting 08/28/16 04:45 09/27/16 04:44 Pantoprazole (Protonix) 40 mg DAILY ORAL 09/01/16 09:00 10/01/16 08:59 Polyethylene Glycol (Miralax) 17 gm HSPRN PRN ORAL Constipation 08/28/16 04:45 09/27/16 04:44 Polyethylene Glycol 17 gm 17 gm BEDTIME ORAL 08/28/16 21:00 09/27/16 20:59 08/30/16 20:59 Temazepam (Restoril) 15 mg HSPRN PRN ORAL Insomnia 08/28/16 04:45 09/04/16 04:44 Verapamil HCl (Calan SR) 240 mg DAILY ORAL 08/31/16 09:00 09/30/16 08:59 Allergies: Coded Allergies: ERYTHROMYCIN BASE (Verified Allergy, Intermediate, 08/28/16) CODEINE (Verified Allergy, Unknown, 08/28/16) MEPERIDINE (Verified Allergy, Unknown, 08/28/16) PENICILLINS (Verified Allergy, Unknown, 08/28/16) ROS Limited/Unobtainable: No Constitutional: Reports: no symptoms HEENT: Reports: no symptoms Cardiovascular: Reports: no symptoms Respiratory: Reports: no symptoms Gastrointestinal/Abdominal: Reports: no symptoms Genitourinary: Reports: no symptoms Neurologic/Psychiatric: Reports: no symptoms Subjective 75 YO F admitted for fever and gen weakness. Now UTI and sepsis. Cover for Int Med-Dr Echevarria. Objective Last Vital Signs Date Time Temp Pulse Resp B/P Pulse Ox O2 Delivery O2 Flow Rate FiO2 08/31/16 13:50 62 16 96 Room Air 21 08/31/16 12:00 97.9 119/73 08/30/16 04:00 4.0 Laboratory Tests Test 08/31/16 04:15 White Blood Count 7.3 K/UL (4.8-10.8) Red Blood Count 3.86 M/UL (4.20-5.40) L Hemoglobin 10.9 G/DL (12.0-16.0) L Hematocrit 33.5 % (37.0-47.0) L Mean Corpuscular Volume 87 FL (80-99) Mean Corpuscular Hemoglobin 28.1 PG (27.0-31.0) Mean Corpuscular Hemoglobin Concent 32.4 G/DL (32.0-36.0) Red Cell Distribution Width 12.8 % (11.6-14.8) Platelet Count 146 K/UL (150-450) L Mean Platelet Volume 8.1 FL (6.5-10.1) Neutrophils (%) (Auto) 60.5 % (45.0-75.0) Lymphocytes (%) (Auto) 28.0 % (20.0-45.0) Monocytes (%) (Auto) 7.3 % (1.0-10.0) Eosinophils (%) (Auto) 2.7 % (0.0-3.0) Basophils (%) (Auto) 1.4 % (0.0-2.0) Sodium Level 140 mEQ/L (135-145) Potassium Level 4.1 mEQ/L (3.4-4.9) Chloride Level 99 mEQ/L (98-107) Carbon Dioxide Level 26 mEQ/L (20-30) Anion Gap 15 (5-15) Blood Urea Nitrogen 9 mg/dL (7-23) Creatinine 0.6 mg/dL (0.5-0.9) Estimat Glomerular Filtration Rate mL/min (>60) Glucose Level 185 mg/dL (74-106) H Lactic Acid Level 1.30 mmol/L (0.66-2.22) Calcium Level 9.4 mg/dL (8.6-10.2) Iron Level 49 ug/dL (37-145) Total Iron Binding Capacity 259 ug/dL (250-400) Percent Iron Saturation 19 % (15-50) Unsaturated Iron Binding 210 ug/dL (112-346) Amylase Level 155 U/L (10-110) H Lipase 34 U/L (< 60) Intake and Output 08/30/16 08/31/16 19:00 07:00 Intake Total 650 ml 990 ml Output Total 1100 ml Balance -450 ml 990 ml Intake Oral 390 ml 100 ml IV Total 260 ml 890 ml Output Urine Total 1100 ml # Voids 2 Objective General: alert, cooperative, no distress, appears stated age Head: normocephalic, without obvious abnormality, atraumatic Eyes: conjunctivae/corneas clear. PERRL, EOM's intact Throat: lips, mucosa, and tongue normal. MMM Neck: supple, symmetrical, trachea midline, and no JVD Lungs: clear to auscultation bilaterally Heart: Sinus tachycardia; regular rhythm, S1, S2 normal, no murmur, click, rub or gallop Abdomen: soft, non-tender, non-distended, bowel sounds normal; no masses or organomegaly Extremities: extremities normal, atraumatic, no cyanosis or edema Pulses: 2+ and symmetric Skin: skin color, texture, turgor normal; no rashes or lesions Neurologic: grossly normal, no focal deficits Assessment/Plan Problem List: (1) Diabetes mellitus, type II Assessment & Plan: Continue novolog sliding scale. (2) Generalized weakness (3) Severe sepsis Assessment & Plan: E.Coli ESBL. See ID note. Cont meropenem. (4) Fever Assessment & Plan: Continues low grade. See ID note. D/C ertapenem; start Meropenem (5) UTI (urinary tract infection) Assessment & Plan: ESBL E. Coli. D/C ertapenem; start meropenem-see ID note. (6) Leukocytosis (7) Renal failure (8) Sick sinus syndrome Assessment & Plan: S/P pacemaker. Await interrogation. (9) Hypertension Assessment & Plan: Cont hydralazine (10) Hypercholesterolemia Assessment & Plan: Continue lipitor (11) COPD (chronic obstructive pulmonary disease) (12) Dysphagia (13) Sinus tachycardia Assessment & Plan: Await cardiology consult. (14) Toxic metabolic encephalopathy (15) Pacemaker Status: not improved CHEMA VÁZQUEZ August 31, 2016 16:31
[2016-08-31] MEDS ORDERED: D5 1/2NS 1000ml IV ONE (17:32)
[2016-08-31] MEDS ORDERED: Tubing IV Secondary IV ONE (17:32)
[2016-08-31] MEDS ORDERED: NS 275ml ONE (17:32)
[2016-08-31] MEDS ORDERED: metFORMIN 500mg tab ORAL SCH (18:00)
[2016-08-31] MEDS: Norco 5mg/325mg tab ORAL PRN (18:18)
[2016-08-31] MEDS: Miralax 17gm pkt ORAL SCH (21:35)
[2016-09-01] VITALS: BP 116/80
[2016-09-01] MEDS: Albuterol ud Inhalation HHN SCH ×4 (01:34→19:00)
[2016-09-01] MEDS: D5 1/2NS 1,000 ML IV SCH ×3 (01:40→19:00)
[2016-09-01] MEDS: Norco 5mg/325mg tab ORAL PRN ×2 (01:44→10:11)
[2016-09-01 04:00] VITALS: BP 131/56
[2016-09-01 06:59] LABS: EOSINOPHILS % (AUTO) 3.8 % (0.0-3.0); LYMPHOCYTES % (AUTO) 25.4 % (20.0-45.0); MEAN CORPUSCULAR HEMOGLOBIN 27.8 PG (27.0-31.0); MEAN CORPUSCULAR VOLUME 84 FL (80-99); MEAN PLATELET VOLUME 7.9 FL (6.5-10.1); MONOCYTES % (AUTO) 9.8 % (1.0-10.0); PLATELET COUNT 166 K/UL (150-450); RED BLOOD COUNT 3.81 M/UL (4.20-5.40); RED CELL DISTRIBUTION WIDTH 12.9 % (11.6-14.8); WHITE BLOOD COUNT 7.1 K/UL (4.8-10.8)
[2016-09-01] MEDS: Meropenem 1 GM in NS 110 ML IVPB SCH ×3 (06:59→21:30)
[2016-09-01] MEDS: metFORMIN 500mg tab ORAL SCH ×2 (06:59→17:25)
[2016-09-01 07:40] LABS: ANION GAP 15 (5-15); CALCIUM 9.8 mg/dL (8.6-10.2); CARBON DIOXIDE 26 mEQ/L (20-30); CHLORIDE 99 mEQ/L (98-107); CREATININE 0.6 mg/dL (0.5-0.9); HEMOLYSIS 2; POTASSIUM 3.8 mEQ/L (3.4-4.9); SODIUM 140 mEQ/L (135-145)
[2016-09-01 08:00] VITALS: BP 136/68
[2016-09-01] MEDS: Verapamil SR 240mg tab ORAL SCH (08:17)
[2016-09-01] MEDS: Memantine 10mg tab ORAL SCH ×2 (08:17→17:25)
[2016-09-01] MEDS: Docusate 100mg cap ORAL SCH ×3 (08:17→17:25)
--- NOTE | 2016-09-01 10:23 | Infectious Diseases Prog Note ---
Assessment/Plan Assessment/Plan ASSESSMENT: 75 y/o female with: Bacteremia : ESBL EColi Complicated UTI - UCx ESBL EColi - US: Mild right renal collecting system dilation, nonspecific, stable. Bilateral renal cortical cysts. Bilateral renal echogenic non-shadowing foci-- stones versus angiomyolipomas versus other nonspecific specular reflectors. 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 Severe sepsis -SP Leukocytosis , SP Fever -SP Left nephrolithiasis DM2 - HbA1c 7% Gastroparesis PCN, Emycin allergies - tolerating invanz Full Code PLAN: continue on Merrem d# , upon DC will change to Invanz to complete the course f/u cultures EGD per GI monitor CBC, temperatures monitor BMP Subjective Constitutional: Denies: anorexia, chills, drenching sweats, fatigue, fever, no symptoms, other Allergies: Coded Allergies: ERYTHROMYCIN BASE (Verified Allergy, Intermediate, 08/28/16) CODEINE (Verified Allergy, Unknown, 08/28/16) MEPERIDINE (Verified Allergy, Unknown, 08/28/16) PENICILLINS (Verified Allergy, Unknown, 08/28/16) Objective Vital Signs Last 24 Hour Vital Signs Date Time Temp Pulse Resp B/P Pulse Ox O2 Delivery O2 Flow Rate FiO2 09/01/16 08:17 84 136/78 09/01/16 08:00 97.2 47 18 136/68 96 Room Air 09/01/16 07:35 84 14 99 Room Air 09/01/16 07:27 84 12 99 Room Air 09/01/16 04:00 97.2 85 17 131/56 96 Room Air 09/01/16 01:43 89 16 99 Room Air 09/01/16 01:34 86 16 99 Room Air 09/01/16 00:00 91 09/01/16 00:00 97.5 91 18 116/80 97 Room Air 4.0 21 08/31/16 20:44 86 16 99 Room Air 08/31/16 20:36 91 16 99 Room Air 08/31/16 20:00 90 08/31/16 16:00 97.5 116 18 116/69 98 Room Air 08/31/16 16:00 115 08/31/16 13:50 62 16 96 Room Air 21 08/31/16 13:50 61 16 98 Room Air 08/31/16 12:00 97.9 90 16 119/73 98 Room Air 08/31/16 12:00 95 Height (Feet): 5 Height (Inches): 5.00 Weight (Pounds): 230 HEENT: PERRL Respiratory/Chest: no accessory muscle use Abdomen: normal bowel sounds, non distended Microbiology Date/Time Source Procedure Growth Status 08/30/16 06:45 Blood Blood Culture - Preliminary NO GROWTH AFTER 24 HOURS Resulted 08/30/16 06:30 Blood Blood Culture - Preliminary NO GROWTH AFTER 24 HOURS Resulted 08/31/16 08:10 Wound Gram Stain - Final Resulted 08/31/16 08:10 Wound Wound Culture - Preliminary Resulted Laboratory Tests Test 09/01/16 04:40 White Blood Count 7.1 K/UL (4.8-10.8) Red Blood Count 3.81 M/UL (4.20-5.40) L Hemoglobin 10.6 G/DL (12.0-16.0) L Hematocrit 32.1 % (37.0-47.0) L Mean Corpuscular Volume 84 FL (80-99) Mean Corpuscular Hemoglobin 27.8 PG (27.0-31.0) Mean Corpuscular Hemoglobin Concent 33.0 G/DL (32.0-36.0) Red Cell Distribution Width 12.9 % (11.6-14.8) Platelet Count 166 K/UL (150-450) Mean Platelet Volume 7.9 FL (6.5-10.1) Neutrophils (%) (Auto) 60.0 % (45.0-75.0) Lymphocytes (%) (Auto) 25.4 % (20.0-45.0) Monocytes (%) (Auto) 9.8 % (1.0-10.0) Eosinophils (%) (Auto) 3.8 % (0.0-3.0) H Basophils (%) (Auto) 1.0 % (0.0-2.0) Sodium Level 140 mEQ/L (135-145) Potassium Level 3.8 mEQ/L (3.4-4.9) Chloride Level 99 mEQ/L (98-107) Carbon Dioxide Level 26 mEQ/L (20-30) Anion Gap 15 (5-15) Blood Urea Nitrogen 8 mg/dL (7-23) Creatinine 0.6 mg/dL (0.5-0.9) Estimat Glomerular Filtration Rate mL/min (>60) Glucose Level 141 mg/dL (74-106) H Calcium Level 9.8 mg/dL (8.6-10.2) Current Medications Medications (Trade) Dose Ordered Sig/Joann Route PRN Reason Start Time Stop Time Status Last Admin Dose Admin Acetaminophen (Tylenol) 650 mg Q4H PRN ORAL fever 08/28/16 04:45 09/27/16 04:44 08/29/16 14:08 Acetaminophen/ Hydrocodone Bitart ([place] 5/325) 1 tab Q6H PRN ORAL For Pain 08/31/16 18:00 09/07/16 17:59 09/01/16 10:11 Al Hydroxide/Mg Hydroxide (Mylanta II) 30 ml Q6H PRN ORAL dyspepsia 08/28/16 04:45 09/27/16 04:44 Albuterol Sulfate (Proventil) 2.5 mg Q6HRT HHN 08/29/16 18:00 09/03/16 17:59 09/01/16 07:27 Atorvastatin Calcium (Lipitor) 10 mg BEDTIME ORAL 08/28/16 21:00 09/27/16 20:59 08/31/16 21:35 Dextrose/Sodium Chloride (D5 0.45% NS) 1,000 ml @ 75 mls/hr [id number] IV 08/28/16 17:40 09/27/16 17:39 08/31/16 13:28 Diphenhydramine HCl (Benadryl) 25 mg Q6H PRN ORAL Itching/Pruritis 08/28/16 04:45 09/27/16 04:44 Docusate Sodium (Colace) 100 mg THREE TIMES A DAY ORAL 08/28/16 13:00 09/27/16 12:59 09/01/16 08:17 Gabapentin (Neurontin) 100 mg TID ORAL 08/28/16 09:00 09/27/16 08:59 09/01/16 08:16 Lorazepam (Ativan 2mg/ml 1ml) 1 mg EVERY 4 HOURS PRN IV agitation 08/28/16 04:45 09/04/16 04:44 Memantine 5 mg 5 mg BID ORAL 08/28/16 09:00 09/27/16 08:59 09/01/16 08:17 Meropenem/Sodium Chloride (Merrem/Sodium Chloride) 110 ml @ 220 mls/hr Q8HR IVPB 08/29/16 14:30 09/03/16 14:29 09/01/16 06:59 Metformin HCl (Glucophage) 500 mg BIAC ORAL 09/01/16 06:30 10/01/16 06:29 09/01/16 06:59 Metoclopramide HCl (Reglan) 10 mg Q6H PRN IVP servere nausea 08/28/16 04:45 09/27/16 04:44 Nitroglycerin (Ntg) 0.4 mg Q5M X 3 DOSES PRN SL Prn Chest Pain 08/28/16 04:45 09/27/16 04:44 Ondansetron HCl (Zofran) 4 mg Q6H PRN IVP Nausea & Vomiting 08/28/16 04:45 09/27/16 04:44 Pantoprazole (Protonix) 40 mg DAILY ORAL 09/01/16 09:00 10/01/16 08:59 09/01/16 08:16 Polyethylene Glycol (Miralax) 17 gm HSPRN PRN ORAL Constipation 08/28/16 04:45 09/27/16 04:44 Polyethylene Glycol 17 gm 17 gm BEDTIME ORAL 08/28/16 21:00 09/27/16 20:59 08/31/16 21:35 Temazepam (Restoril) 15 mg HSPRN PRN ORAL Insomnia 08/28/16 04:45 09/04/16 04:44 Verapamil HCl (Calan SR) 240 mg DAILY ORAL 08/31/16 09:00 09/30/16 08:59 09/01/16 08:17 FAHAD SMITH M.D. September 01, 2016 10:23
--- NOTE | 2016-09-01 10:49 | GI Progress Note ---
Assessment/Plan Problems: (1) Failure to thrive ICD Codes: [id number] - Reserved for [id number] codable problem concepts SNOMED: 49193561 (2) Nausea & vomiting ICD Codes: R11.2 - Nausea with vomiting, unspecified SNOMED: 99782566 Qualifiers: Qualified Codes: R11.2 - Nausea with vomiting, unspecified (3) Altered mental status ICD Codes: R41.82 - Altered mental status, unspecified SNOMED: 276821068 (4) Hepatitis C ICD Codes: B19.20 - Unspecified viral hepatitis C without hepatic coma SNOMED: 61628147 (5) Generalized weakness ICD Codes: R53.1 - Weakness SNOMED: 26111837 (6) Anemia ICD Codes: D64.9 - Anemia, unspecified SNOMED: 328514681 (7) Pacemaker ICD Codes: Z95.0 - Presence of cardiac pacemaker SNOMED: 765879180 Status: stable Status Narrative Discussed with Dr. Massey. Assessment/Plan Hep C positive >> outpt tx elevated alkaline phos DM induced gastroparesis >> reglan hold MRCP >> pt has pacemaker abdominal U/S reviewed >> Coarsened liver echotexture compatible with chronic hepatocellular disease, nonspecific. held Xarelto 20 mg for EGD, resume after procedure pt refused to take colonoscopy prep monitor LFTs monitor H&H, transfuse prn ppi bowel regime fu labs Subjective Gastrointestinal/Abdominal: Reports: no symptoms Subjective constipated Objective Last 24 Hour Vital Signs Date Time Temp Pulse Resp B/P Pulse Ox O2 Delivery O2 Flow Rate FiO2 09/01/16 08:17 84 136/78 09/01/16 08:00 97.2 47 18 136/68 96 Room Air 09/01/16 07:35 84 14 99 Room Air 09/01/16 07:27 84 12 99 Room Air 09/01/16 04:00 97.2 85 17 131/56 96 Room Air 09/01/16 01:43 89 16 99 Room Air 09/01/16 01:34 86 16 99 Room Air 09/01/16 00:00 91 09/01/16 00:00 97.5 91 18 116/80 97 Room Air 4.0 21 08/31/16 20:44 86 16 99 Room Air 08/31/16 20:36 91 16 99 Room Air 08/31/16 20:00 90 08/31/16 16:00 97.5 116 18 116/69 98 Room Air 08/31/16 16:00 115 08/31/16 13:50 62 16 96 Room Air 21 08/31/16 13:50 61 16 98 Room Air 08/31/16 12:00 97.9 90 16 119/73 98 Room Air 08/31/16 12:00 95 Intake and Output 08/31/16 09/01/16 19:00 07:00 Intake Total 1405 ml 200 ml Balance 1405 ml 200 ml Intake Oral 550 ml 200 ml IV Total 855 ml # Voids 2 1 Laboratory Tests Test 09/01/16 04:40 White Blood Count 7.1 K/UL (4.8-10.8) Red Blood Count 3.81 M/UL (4.20-5.40) L Hemoglobin 10.6 G/DL (12.0-16.0) L Hematocrit 32.1 % (37.0-47.0) L Mean Corpuscular Volume 84 FL (80-99) Mean Corpuscular Hemoglobin 27.8 PG (27.0-31.0) Mean Corpuscular Hemoglobin Concent 33.0 G/DL (32.0-36.0) Red Cell Distribution Width 12.9 % (11.6-14.8) Platelet Count 166 K/UL (150-450) Mean Platelet Volume 7.9 FL (6.5-10.1) Neutrophils (%) (Auto) 60.0 % (45.0-75.0) Lymphocytes (%) (Auto) 25.4 % (20.0-45.0) Monocytes (%) (Auto) 9.8 % (1.0-10.0) Eosinophils (%) (Auto) 3.8 % (0.0-3.0) H Basophils (%) (Auto) 1.0 % (0.0-2.0) Sodium Level 140 mEQ/L (135-145) Potassium Level 3.8 mEQ/L (3.4-4.9) Chloride Level 99 mEQ/L (98-107) Carbon Dioxide Level 26 mEQ/L (20-30) Anion Gap 15 (5-15) Blood Urea Nitrogen 8 mg/dL (7-23) Creatinine 0.6 mg/dL (0.5-0.9) Estimat Glomerular Filtration Rate mL/min (>60) Glucose Level 141 mg/dL (74-106) H Calcium Level 9.8 mg/dL (8.6-10.2) Height (Feet): 5 Height (Inches): 5.00 Weight (Pounds): 230 General Appearance: no apparent distress, alert, confused Cardiovascular: normal rate Respiratory/Chest: lungs clear, no respiratory distress Abdominal Exam: normal bowel sounds, non tender, soft Juanita Friedman N.P. September 01, 2016 10:49
[2016-09-01 12:00] VITALS: BP 144/69
--- NOTE | 2016-09-01 12:11 | Internal Med Progress Note ---
Subjective Date of Service: September 01, 2016 Physician Name Wilder Colin Attending Physician Zion Echevarria MD Current Medications Medications (Trade) Dose Ordered Sig/Joann Route PRN Reason Start Time Stop Time Status Last Admin Dose Admin Acetaminophen (Tylenol) 650 mg Q4H PRN ORAL fever 08/28/16 04:45 09/27/16 04:44 08/29/16 14:08 Acetaminophen/ Hydrocodone Bitart ([place] 5/325) 1 tab Q6H PRN ORAL For Pain 08/31/16 18:00 09/07/16 17:59 09/01/16 10:11 Al Hydroxide/Mg Hydroxide (Mylanta II) 30 ml Q6H PRN ORAL dyspepsia 08/28/16 04:45 09/27/16 04:44 Albuterol Sulfate (Proventil) 2.5 mg Q6HRT HHN 08/29/16 18:00 09/03/16 17:59 09/01/16 07:27 Atorvastatin Calcium (Lipitor) 10 mg BEDTIME ORAL 08/28/16 21:00 09/27/16 20:59 08/31/16 21:35 Dextrose/Sodium Chloride (D5 0.45% NS) 1,000 ml @ 75 mls/hr [id number] IV 08/28/16 17:40 09/27/16 17:39 08/31/16 13:28 Diphenhydramine HCl (Benadryl) 25 mg Q6H PRN ORAL Itching/Pruritis 08/28/16 04:45 09/27/16 04:44 Docusate Sodium (Colace) 100 mg THREE TIMES A DAY ORAL 08/28/16 13:00 09/27/16 12:59 09/01/16 08:17 Gabapentin (Neurontin) 100 mg TID ORAL 08/28/16 09:00 09/27/16 08:59 09/01/16 08:16 Lorazepam (Ativan 2mg/ml 1ml) 1 mg EVERY 4 HOURS PRN IV agitation 08/28/16 04:45 09/04/16 04:44 Memantine 5 mg 5 mg BID ORAL 08/28/16 09:00 09/27/16 08:59 09/01/16 08:17 Meropenem/Sodium Chloride (Merrem/Sodium Chloride) 110 ml @ 220 mls/hr Q8HR IVPB 08/29/16 14:30 09/03/16 14:29 09/01/16 06:59 Metformin HCl (Glucophage) 500 mg BIAC ORAL 09/01/16 06:30 10/01/16 06:29 09/01/16 06:59 Metoclopramide HCl (Reglan) 10 mg Q6H PRN IVP servere nausea 08/28/16 04:45 09/27/16 04:44 Nitroglycerin (Ntg) 0.4 mg Q5M X 3 DOSES PRN SL Prn Chest Pain 08/28/16 04:45 09/27/16 04:44 Ondansetron HCl (Zofran) 4 mg Q6H PRN IVP Nausea & Vomiting 08/28/16 04:45 09/27/16 04:44 Pantoprazole (Protonix) 40 mg DAILY ORAL 09/01/16 09:00 10/01/16 08:59 09/01/16 08:16 Polyethylene Glycol (Miralax) 17 gm HSPRN PRN ORAL Constipation 08/28/16 04:45 09/27/16 04:44 Polyethylene Glycol 17 gm 17 gm BEDTIME ORAL 08/28/16 21:00 09/27/16 20:59 08/31/16 21:35 Temazepam (Restoril) 15 mg HSPRN PRN ORAL Insomnia 08/28/16 04:45 09/04/16 04:44 Verapamil HCl (Calan SR) 240 mg DAILY ORAL 08/31/16 09:00 09/30/16 08:59 09/01/16 08:17 Allergies: Coded Allergies: ERYTHROMYCIN BASE (Verified Allergy, Intermediate, 08/28/16) CODEINE (Verified Allergy, Unknown, 08/28/16) MEPERIDINE (Verified Allergy, Unknown, 08/28/16) PENICILLINS (Verified Allergy, Unknown, 08/28/16) ROS Limited/Unobtainable: Yes Subjective 75 YO F admitted for fever and gen weakness. Now UTI and sepsis. Cover for Int Med-Dr Echevarria. Objective Last Vital Signs Date Time Temp Pulse Resp B/P Pulse Ox O2 Delivery O2 Flow Rate FiO2 09/01/16 12:00 97.5 93 18 144/69 97 Room Air 09/01/16 00:00 4.0 21 Laboratory Tests Test 09/01/16 04:40 White Blood Count 7.1 K/UL (4.8-10.8) Red Blood Count 3.81 M/UL (4.20-5.40) L Hemoglobin 10.6 G/DL (12.0-16.0) L Hematocrit 32.1 % (37.0-47.0) L Mean Corpuscular Volume 84 FL (80-99) Mean Corpuscular Hemoglobin 27.8 PG (27.0-31.0) Mean Corpuscular Hemoglobin Concent 33.0 G/DL (32.0-36.0) Red Cell Distribution Width 12.9 % (11.6-14.8) Platelet Count 166 K/UL (150-450) Mean Platelet Volume 7.9 FL (6.5-10.1) Neutrophils (%) (Auto) 60.0 % (45.0-75.0) Lymphocytes (%) (Auto) 25.4 % (20.0-45.0) Monocytes (%) (Auto) 9.8 % (1.0-10.0) Eosinophils (%) (Auto) 3.8 % (0.0-3.0) H Basophils (%) (Auto) 1.0 % (0.0-2.0) Sodium Level 140 mEQ/L (135-145) Potassium Level 3.8 mEQ/L (3.4-4.9) Chloride Level 99 mEQ/L (98-107) Carbon Dioxide Level 26 mEQ/L (20-30) Anion Gap 15 (5-15) Blood Urea Nitrogen 8 mg/dL (7-23) Creatinine 0.6 mg/dL (0.5-0.9) Estimat Glomerular Filtration Rate mL/min (>60) Glucose Level 141 mg/dL (74-106) H Calcium Level 9.8 mg/dL (8.6-10.2) Microbiology Date/Time Source Procedure Growth Status 08/30/16 06:45 Blood Blood Culture - Preliminary NO GROWTH AFTER 24 HOURS Resulted 08/30/16 06:30 Blood Blood Culture - Preliminary NO GROWTH AFTER 24 HOURS Resulted 08/31/16 08:10 Wound Gram Stain - Final Resulted 08/31/16 08:10 Wound Wound Culture - Preliminary Resulted Intake and Output 08/31/16 09/01/16 19:00 07:00 Intake Total 1405 ml 200 ml Balance 1405 ml 200 ml Intake Oral 550 ml 200 ml IV Total 855 ml # Voids 2 1 Objective General: alert, cooperative, no distress, appears stated age Head: normocephalic, without obvious abnormality, atraumatic Eyes: conjunctivae/corneas clear. PERRL, EOM's intact Throat: lips, mucosa, and tongue normal. MMM Neck: supple, symmetrical, trachea midline, and no JVD Lungs: clear to auscultation bilaterally Heart: Sinus tachycardia; regular rhythm, S1, S2 normal, no murmur, click, rub or gallop Abdomen: soft, non-tender, non-distended, bowel sounds normal; no masses or organomegaly Extremities: extremities normal, atraumatic, no cyanosis or edema Pulses: 2+ and symmetric Skin: skin color, texture, turgor normal; no rashes or lesions Neurologic: grossly normal, no focal deficits Assessment/Plan Problem List: (1) Diabetes mellitus, type II Assessment & Plan: Continue novolog sliding scale. (2) Generalized weakness (3) Severe sepsis Assessment & Plan: E.Coli ESBL. See ID note. Cont meropenem. (4) Fever Assessment & Plan: Continues low grade. See ID note. D/C ertapenem; start Meropenem (5) UTI (urinary tract infection) Assessment & Plan: ESBL E. Coli. D/C ertapenem; start meropenem-see ID note. (6) Leukocytosis (7) Renal failure (8) Sick sinus syndrome Assessment & Plan: S/P pacemaker. Await interrogation. (9) Hypertension Assessment & Plan: Cont hydralazine (10) Hypercholesterolemia Assessment & Plan: Continue lipitor (11) COPD (chronic obstructive pulmonary disease) (12) Dysphagia (13) Sinus tachycardia Assessment & Plan: Await cardiology consult. (14) Toxic metabolic encephalopathy (15) Pacemaker Status: progressing Assessment/Plan Discharge planning: WILDER Fraga September 01, 2016 12:11
--- NOTE | 2016-09-01 12:43 | Pulmonology Progress Note ---
Assessment/Plan Problems: (1) Severe sepsis (2) Encephalopathy acute (3) COPD (chronic obstructive pulmonary disease) (4) Gout (5) Hypertension (6) Pacemaker (7) Hepatitis C Assessment/Plan iv antibiotics check blood cultures, Ecoli, f/u with sensitivity continue on Merrem d# / , liver disease stable renal function improving dvt Med/surg Subjective ROS Limited/Unobtainable: No Constitutional: Reports: no symptoms HEENT: Repors: no symptoms Respiratory: Reports: no symptoms Allergies: Coded Allergies: ERYTHROMYCIN BASE (Verified Allergy, Intermediate, 08/28/16) CODEINE (Verified Allergy, Unknown, 08/28/16) MEPERIDINE (Verified Allergy, Unknown, 08/28/16) PENICILLINS (Verified Allergy, Unknown, 08/28/16) Objective Last 24 Hour Vital Signs Date Time Temp Pulse Resp B/P Pulse Ox O2 Delivery O2 Flow Rate FiO2 09/01/16 12:00 97.5 93 18 144/69 97 Room Air 09/01/16 08:17 84 136/78 09/01/16 08:00 97.2 47 18 136/68 96 Room Air 09/01/16 07:35 84 14 99 Room Air 09/01/16 07:27 84 12 99 Room Air 09/01/16 04:00 97.2 85 17 131/56 96 Room Air 09/01/16 01:43 89 16 99 Room Air 09/01/16 01:34 86 16 99 Room Air 09/01/16 00:00 91 09/01/16 00:00 97.5 91 18 116/80 97 Room Air 4.0 21 08/31/16 20:44 86 16 99 Room Air 08/31/16 20:36 91 16 99 Room Air 08/31/16 20:00 90 08/31/16 16:00 97.5 116 18 116/69 98 Room Air 08/31/16 16:00 115 08/31/16 13:50 62 16 96 Room Air 21 08/31/16 13:50 61 16 98 Room Air Intake and Output 08/31/16 09/01/16 19:00 07:00 Intake Total 1405 ml 200 ml Balance 1405 ml 200 ml Intake Oral 550 ml 200 ml IV Total 855 ml # Voids 2 1 General Appearance: WD/WN HEENT: normocephalic, atraumatic Respiratory/Chest: chest wall non-tender, lungs clear Breasts: no masses Cardiovascular: normal peripheral pulses Abdomen: normal bowel sounds, soft, non tender Extremities: no cyanosis Skin: no rash 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 Lymphatic: no neck adenopathy Microbiology Date/Time Source Procedure Growth Status 08/30/16 06:45 Blood Blood Culture - Preliminary NO GROWTH AFTER 24 HOURS Resulted 08/30/16 06:30 Blood Blood Culture - Preliminary NO GROWTH AFTER 24 HOURS Resulted 08/31/16 08:10 Wound Gram Stain - Final Resulted 08/31/16 08:10 Wound Wound Culture - Preliminary Resulted Laboratory Tests 09/01/16 04:40: White Blood Count 7.1, Red Blood Count 3.81L, Hemoglobin 10.6L, Hematocrit 32.1L , Mean Corpuscular Volume 84, Mean Corpuscular Hemoglobin 27.8, Mean Corpuscular Hemoglobin Concent 33.0, Red Cell Distribution Width 12.9, Platelet Count 166, Mean Platelet Volume 7.9, Neutrophils (%) (Auto) 60.0, Lymphocytes (% ) (Auto) 25.4, Monocytes (%) (Auto) 9.8, Eosinophils (%) (Auto) 3.8H, Basophils (%) (Auto) 1.0, Sodium Level 140, Potassium Level 3.8, Chloride Level 99, Carbon Dioxide Level 26, Anion Gap 15, Blood Urea Nitrogen 8, Creatinine 0.6, Estimat Glomerular Filtration Rate , Glucose Level 141H, Calcium Level 9.8 Current Medications Medications (Trade) Dose Ordered Sig/Joann Route PRN Reason Start Time Stop Time Status Last Admin Dose Admin Acetaminophen (Tylenol) 650 mg Q4H PRN ORAL fever 08/28/16 04:45 09/27/16 04:44 08/29/16 14:08 Acetaminophen/ Hydrocodone Bitart ([place] 5/325) 1 tab Q6H PRN ORAL For Pain 08/31/16 18:00 09/07/16 17:59 09/01/16 10:11 Al Hydroxide/Mg Hydroxide (Mylanta II) 30 ml Q6H PRN ORAL dyspepsia 08/28/16 04:45 09/27/16 04:44 Albuterol Sulfate (Proventil) 2.5 mg Q6HRT HHN 08/29/16 18:00 09/03/16 17:59 09/01/16 07:27 Atorvastatin Calcium (Lipitor) 10 mg BEDTIME ORAL 08/28/16 21:00 09/27/16 20:59 08/31/16 21:35 Dextrose/Sodium Chloride (D5 0.45% NS) 1,000 ml @ 75 mls/hr [id number] IV 08/28/16 17:40 09/27/16 17:39 08/31/16 13:28 Diphenhydramine HCl (Benadryl) 25 mg Q6H PRN ORAL Itching/Pruritis 08/28/16 04:45 09/27/16 04:44 Docusate Sodium (Colace) 100 mg THREE TIMES A DAY ORAL 08/28/16 13:00 09/27/16 12:59 09/01/16 08:17 Gabapentin (Neurontin) 100 mg TID ORAL 08/28/16 09:00 09/27/16 08:59 09/01/16 08:16 Lorazepam (Ativan 2mg/ml 1ml) 1 mg EVERY 4 HOURS PRN IV agitation 08/28/16 04:45 09/04/16 04:44 Memantine 5 mg 5 mg BID ORAL 08/28/16 09:00 09/27/16 08:59 09/01/16 08:17 Meropenem/Sodium Chloride (Merrem/Sodium Chloride) 110 ml @ 220 mls/hr Q8HR IVPB 08/29/16 14:30 09/03/16 14:29 09/01/16 06:59 Metformin HCl (Glucophage) 500 mg BIAC ORAL 09/01/16 06:30 10/01/16 06:29 09/01/16 06:59 Metoclopramide HCl (Reglan) 10 mg Q6H PRN IVP servere nausea 08/28/16 04:45 09/27/16 04:44 Nitroglycerin (Ntg) 0.4 mg Q5M X 3 DOSES PRN SL Prn Chest Pain 08/28/16 04:45 09/27/16 04:44 Ondansetron HCl (Zofran) 4 mg Q6H PRN IVP Nausea & Vomiting 08/28/16 04:45 09/27/16 04:44 Pantoprazole (Protonix) 40 mg DAILY ORAL 5/22/17 09:00 10/01/16 08:59 09/01/16 08:16 Polyethylene Glycol (Miralax) 17 gm HSPRN PRN ORAL Constipation 08/28/16 04:45 09/27/16 04:44 Polyethylene Glycol 17 gm 17 gm BEDTIME ORAL 08/28/16 21:00 09/27/16 20:59 08/31/16 21:35 Temazepam (Restoril) 15 mg HSPRN PRN ORAL Insomnia 08/28/16 04:45 09/04/16 04:44 Verapamil HCl (Calan SR) 240 mg DAILY ORAL 08/31/16 09:00 09/30/16 08:59 09/01/16 08:17 JONH RODRIGUEZ September 01, 2016 12:43
[2016-09-01 16:00] VITALS: BP 108/68
--- NOTE | 2016-09-01 16:25 | Wound Care Consultation ---
Wound Assessment Wound Assessment #1: Wound Present on Admission: Yes New Wound: No Status Change of Wound: Yes Wound Location Body Site Modif: mid Wound Location Body Site: sacral Wound Type: pressure ulcer - resurfaced Dyan Test: Does not Dyan Pressure Ulcer Stage: IV/unstageable Wound Thickness: Full Thickness Wound Length: 0.7 Wound Width: 0.7 Wound Depth: utd Percent of Wound Bed Yellow/Wh: 100 Wound Drainage Description: Serosanguineous Wound Drainage Amount: Scant Wound Drainage Odor: None/Absent Tissue Surrounding Wound: full thickness scar tissue Wound General Appearance: Draining Wound Assessment #2: Wound Number: #2 Wound Present on Admission: Yes New Wound: No Status Change of Wound: No Wound Location Body Site Modif: left Wound Location Body Site: buttocks Wound Type: pressure ulcer Dyan Test: Does not Dyan Pressure Ulcer Stage: deep tissue injury Wound Thickness: Full Thickness Wound Length: 4.5 Wound Width: 2.0 Wound Depth: utd Percent of Wound Purple/Maroon: 100 Wound Drainage Amount: None Wound Drainage Odor: None/Absent Tissue Surrounding Wound: full thickness scar tissue Wound General Appearance: Reddened Wound Assessment #3: Wound Number: #3 Wound Present on Admission: Yes New Wound: No Status Change of Wound: No Wound Location Body Site Modif: right Wound Location Body Site: buttocks Wound Type: pressure ulcer Dyan Test: Does not Dyan Pressure Ulcer Stage: deep tissue injury Wound Thickness: Full Thickness Wound Length: 3.5 Wound Width: 1.4 Wound Depth: utd Percent of Wound Purple/Maroon: 100 Wound Drainage Amount: None Wound Drainage Odor: None/Absent Tissue Surrounding Wound: full thickness scar tissue Wound General Appearance: Reddened Wound Comment #1 Sacral resurfaced scar tissue unstageable pressure ulcer #2 Right buttock DTI pressure ulcer #3 Left buttock DTI pressure ulcer Recommendation -Sacral pressure ulcer Cleanse with saline, pat dry, apply Therahoney Gel to wound bed, cover with Biatain silicone daily and PRN soiled/dislodged -Local wound care per protocol for DTI on left and right buttock -Optimize nutrition -Low air loss mattress -Turn and reposition -Keep clean and dry -Offload both heels -Heel protector on both heels -Assess and f/u accordingly for any changes SANDRO RIDER RN September 01, 2016 16:25
--- NOTE | 2016-09-01 16:57 | Cardiac Electrophysiology PN ---
Assessment/Plan Assessment/Plan 1. Status post [employer] pacemaker. That was interrogated today and showed Nl Fx. 2. History of cardiomyopathy with ejection fraction of 40%. The ejection fraction improved to 50% by echocardiogram. 3. Hypertension. Continue verapamil 240 qd. 4. Bilateral lower extremity deep venous thrombosis. Xarelto on hold for EGD. 5. Hyperlipidemia, on Lipitor. 6. Urinary tract infection and sepsis with white count of 20,000 on intravenous meropenem. 7. Hep C. Subjective Subjective Comfortable in NAD. Pacer interrogated and showed NL Fx. Objective Last 24 Hour Vital Signs Date Time Temp Pulse Resp B/P Pulse Ox O2 Delivery O2 Flow Rate FiO2 09/01/16 16:00 97.0 65 18 108/68 99 Room Air 09/01/16 13:24 86 16 100 Room Air 09/01/16 13:17 87 14 98 Room Air 09/01/16 12:00 97.5 93 18 144/69 97 Room Air 09/01/16 08:17 84 136/78 09/01/16 08:00 97.2 47 18 136/68 96 Room Air 09/01/16 07:35 84 14 99 Room Air 09/01/16 07:27 84 12 99 Room Air 09/01/16 04:00 97.2 85 17 131/56 96 Room Air 09/01/16 01:43 89 16 99 Room Air 09/01/16 01:34 86 16 99 Room Air 09/01/16 00:00 91 09/01/16 00:00 97.5 91 18 116/80 97 Room Air 4.0 21 08/31/16 20:44 86 16 99 Room Air 08/31/16 20:36 91 16 99 Room Air 08/31/16 20:00 90 Intake and Output 08/31/16 09/01/16 19:00 07:00 Intake Total 1405 ml 200 ml Balance 1405 ml 200 ml Intake Oral 550 ml 200 ml IV Total 855 ml # Voids 2 1 Laboratory Tests Test 09/01/16 04:40 White Blood Count 7.1 K/UL (4.8-10.8) Red Blood Count 3.81 M/UL (4.20-5.40) L Hemoglobin 10.6 G/DL (12.0-16.0) L Hematocrit 32.1 % (37.0-47.0) L Mean Corpuscular Volume 84 FL (80-99) Mean Corpuscular Hemoglobin 27.8 PG (27.0-31.0) Mean Corpuscular Hemoglobin Concent 33.0 G/DL (32.0-36.0) Red Cell Distribution Width 12.9 % (11.6-14.8) Platelet Count 166 K/UL (150-450) Mean Platelet Volume 7.9 FL (6.5-10.1) Neutrophils (%) (Auto) 60.0 % (45.0-75.0) Lymphocytes (%) (Auto) 25.4 % (20.0-45.0) Monocytes (%) (Auto) 9.8 % (1.0-10.0) Eosinophils (%) (Auto) 3.8 % (0.0-3.0) H Basophils (%) (Auto) 1.0 % (0.0-2.0) Sodium Level 140 mEQ/L (135-145) Potassium Level 3.8 mEQ/L (3.4-4.9) Chloride Level 99 mEQ/L (98-107) Carbon Dioxide Level 26 mEQ/L (20-30) Anion Gap 15 (5-15) Blood Urea Nitrogen 8 mg/dL (7-23) Creatinine 0.6 mg/dL (0.5-0.9) Estimat Glomerular Filtration Rate mL/min (>60) Glucose Level 141 mg/dL (74-106) H Calcium Level 9.8 mg/dL (8.6-10.2) Microbiology Date/Time Source Procedure Growth Status 08/30/16 06:45 Blood Blood Culture - Preliminary NO GROWTH AFTER 24 HOURS Resulted 08/30/16 06:30 Blood Blood Culture - Preliminary NO GROWTH AFTER 24 HOURS Resulted 08/31/16 08:10 Wound Gram Stain - Final Resulted 08/31/16 08:10 Wound Wound Culture - Preliminary Resulted Objective HEAD AND NECK: Showed no JVD. LUNGS: Clear. CARDIOVASCULAR: Shows regular S1 and S2 with no gallop or murmur. Pacemaker in left subclavian intact. ABDOMEN: Soft. EXTREMITIES: No pitting edema. JAMAAL LAWS September 01, 2016 16:57
[2016-09-01] MEDS ORDERED: Nitroglycerin Subl 0.4mg tab (Bottle Of 25) SL PRN (18:15)
[2016-09-01] MEDS ORDERED: Mylanta II UD 30ml ORAL PRN (18:45)
[2016-09-01] MEDS ORDERED: LORazepam Inj 2mg/ml 1ml IV PRN (18:49)
[2016-09-01] MEDS ORDERED: Metoclopramide 10mg/2ml Inj IVP PRN (18:49)
[2016-09-01] MEDS ORDERED: Miralax 17gm pkt ORAL PRN (18:52)
[2016-09-01] MEDS ORDERED: Norco 5mg/325mg tab ORAL PRN (19:00)
[2016-09-01 20:00] VITALS: BP 112/71
[2016-09-01] MEDS: Miralax 17gm pkt ORAL SCH (21:00)
[2016-09-02] VITALS (10 sets, daily range): BP systolic 110–134; BP diastolic 60–72
[2016-09-02] MEDS: Albuterol ud Inhalation HHN SCH ×4 (00:08→19:32)
[2016-09-02] MEDS: Meropenem 1 GM in NS 110 ML IVPB SCH ×3 (05:52→21:25)
[2016-09-02] MEDS: metFORMIN 500mg tab ORAL SCH ×2 (06:06→17:32)
[2016-09-02 06:40] LABS: EOSINOPHILS % (AUTO) 3.5 % (0.0-3.0); LYMPHOCYTES % (AUTO) 30.1 % (20.0-45.0); MEAN CORPUSCULAR HEMOGLOBIN 27.7 PG (27.0-31.0); MEAN CORPUSCULAR HGB CONC 32.7 G/DL (32.0-36.0); MEAN CORPUSCULAR VOLUME 85 FL (80-99); MEAN PLATELET VOLUME 7.5 FL (6.5-10.1); MONOCYTES % (AUTO) 6.8 % (1.0-10.0); NEUTROPHILS % (AUTO) 58.5 % (45.0-75.0); PLATELET COUNT 185 K/UL (150-450); RED BLOOD COUNT 3.86 M/UL (4.20-5.40); RED CELL DISTRIBUTION WIDTH 12.7 % (11.6-14.8); WHITE BLOOD COUNT 6.9 K/UL (4.8-10.8)
[2016-09-02 07:02] LABS: PROTHROMBIN TIME 10.5 SEC (9.30-11.50)
[2016-09-02 08:04] LABS: ANION GAP 15 (5-15); CALCIUM 9.1 mg/dL (8.6-10.2); CARBON DIOXIDE 25 mEQ/L (20-30); CHLORIDE 99 mEQ/L (98-107); CREATININE 0.7 mg/dL (0.5-0.9); HEMOLYSIS 4; POTASSIUM 3.9 mEQ/L (3.4-4.9); SODIUM 139 mEQ/L (135-145)
[2016-09-02] MEDS: D5 1/2NS 1,000 ML IV SCH ×2 (08:41→21:25)
[2016-09-02] MEDS: Verapamil SR 240mg tab ORAL SCH (09:00)
[2016-09-02] MEDS: Memantine 10mg tab ORAL SCH ×2 (09:00→17:33)
[2016-09-02] MEDS: Docusate 100mg cap ORAL SCH ×3 (09:00→17:33)
--- NOTE | 2016-09-02 09:42 | Infectious Diseases Prog Note ---
Assessment/Plan Assessment/Plan ASSESSMENT: 75 y/o female with: Bacteremia : ESBL EColi Complicated UTI - UCx ESBL EColi - US: Mild right renal collecting system dilation, nonspecific, stable. Bilateral renal cortical cysts. Bilateral renal echogenic non-shadowing foci-- stones versus angiomyolipomas versus other nonspecific specular reflectors. 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 Severe sepsis -SP Leukocytosis , SP Fever -SP Left nephrolithiasis DM2 - HbA1c 7% Gastroparesis PCN, Emycin allergies - tolerating invanz Full Code PLAN: continue on Merrem d# , upon DC will change to Invanz to complete the course f/u cultures monitor CBC, temperatures monitor BMP Subjective Constitutional: Denies: anorexia, chills, drenching sweats, fatigue, fever, no symptoms, other Allergies: Coded Allergies: ERYTHROMYCIN BASE (Verified Allergy, Intermediate, 08/28/16) CODEINE (Verified Allergy, Unknown, 08/28/16) MEPERIDINE (Verified Allergy, Unknown, 08/28/16) PENICILLINS (Verified Allergy, Unknown, 08/28/16) Objective Vital Signs Last 24 Hour Vital Signs Date Time Temp Pulse Resp B/P Pulse Ox O2 Delivery O2 Flow Rate FiO2 09/02/16 07:52 97.2 84 16 133/71 97 Room Air 09/02/16 07:41 86 18 100 Room Air 21 09/02/16 07:33 85 16 98 Room Air 09/02/16 04:00 98.1 90 18 121/72 96 Room Air 09/02/16 00:51 97.7 09/02/16 00:09 88 20 100 Room Air 21 09/02/16 00:08 83 20 98 Room Air 21 09/02/16 00:00 98.1 82 18 119/71 100 Room Air 09/01/16 20:00 97.7 79 18 112/71 97 Room Air 09/01/16 19:30 16 09/01/16 19:30 16 09/01/16 16:00 97.0 65 18 108/68 99 Room Air 09/01/16 13:24 86 16 100 Room Air 09/01/16 13:17 87 14 98 Room Air 09/01/16 12:00 97.5 93 18 144/69 97 Room Air Height (Feet): 5 Height (Inches): 5.00 Weight (Pounds): 230 HEENT: anicteric Respiratory/Chest: respiratory distress Cardiovascular: no gallop/murmur Abdomen: no organomegaly Microbiology Date/Time Source Procedure Growth Status 08/31/16 08:10 Wound Gram Stain - Final Resulted 08/31/16 08:10 Wound Wound Culture - Preliminary Resulted Laboratory Tests Test 09/02/16 05:00 White Blood Count 6.9 K/UL (4.8-10.8) Red Blood Count 3.86 M/UL (4.20-5.40) L Hemoglobin 10.7 G/DL (12.0-16.0) L Hematocrit 32.7 % (37.0-47.0) L Mean Corpuscular Volume 85 FL (80-99) Mean Corpuscular Hemoglobin 27.7 PG (27.0-31.0) Mean Corpuscular Hemoglobin Concent 32.7 G/DL (32.0-36.0) Red Cell Distribution Width 12.7 % (11.6-14.8) Platelet Count 185 K/UL (150-450) Mean Platelet Volume 7.5 FL (6.5-10.1) Neutrophils (%) (Auto) 58.5 % (45.0-75.0) Lymphocytes (%) (Auto) 30.1 % (20.0-45.0) Monocytes (%) (Auto) 6.8 % (1.0-10.0) Eosinophils (%) (Auto) 3.5 % (0.0-3.0) H Basophils (%) (Auto) 1.0 % (0.0-2.0) Prothrombin Time 10.5 SEC (9.30-11.50) Prothromb Time International Ratio 1.0 (0.9-1.1) Activated Partial Thromboplast Time 29 SEC (23-33) Sodium Level 139 mEQ/L (135-145) Potassium Level 3.9 mEQ/L (3.4-4.9) Chloride Level 99 mEQ/L (98-107) Carbon Dioxide Level 25 mEQ/L (20-30) Anion Gap 15 (5-15) Blood Urea Nitrogen 10 mg/dL (7-23) Creatinine 0.7 mg/dL (0.5-0.9) Estimat Glomerular Filtration Rate mL/min (>60) Glucose Level 175 mg/dL (74-106) H Calcium Level 9.1 mg/dL (8.6-10.2) Current Medications Medications (Trade) Dose Ordered Sig/Joann Route PRN Reason Start Time Stop Time Status Last Admin Dose Admin Acetaminophen (Tylenol) 650 mg Q4H PRN ORAL fever 09/01/16 18:45 10/01/16 18:44 Acetaminophen/ Hydrocodone Bitart ([place] 5325) 1 tab Q6H PRN ORAL For Pain 09/01/16 19:00 09/08/16 18:59 09/01/16 23:52 Al Hydroxide/Mg Hydroxide (Mylanta II) 30 ml Q6H PRN ORAL dyspepsia 09/01/16 18:45 10/01/16 18:44 Albuterol Sulfate (Proventil) 2.5 mg Q6HRT HHN 09/01/16 19:00 09/06/16 18:59 09/02/16 07:33 Atorvastatin Calcium (Lipitor) 10 mg BEDTIME ORAL 09/01/16 21:00 10/01/16 20:59 09/01/16 21:29 Dextrose/Sodium Chloride 1,000 ml @ 75 mls/hr [id number] IV 09/01/16 19:00 10/01/16 18:59 09/02/16 08:41 Diphenhydramine HCl (Benadryl) 25 mg Q6H PRN ORAL Itching/Pruritis 09/01/16 18:46 10/01/16 18:45 Docusate Sodium (Colace) 100 mg THREE TIMES A DAY ORAL 09/02/16 09:00 10/02/16 08:59 Gabapentin (Neurontin) 100 mg TID ORAL 09/02/16 09:00 10/02/16 08:59 Lorazepam (Ativan 2mg/ml 1ml) 1 mg Q4H PRN IV agitation 09/01/16 18:49 09/08/16 18:48 Memantine (Namenda) 5 mg BID ORAL 09/02/16 09:00 10/02/16 08:59 Meropenem/Sodium Chloride (Merrem/Sodium Chloride) 110 ml @ 220 mls/hr Q8HR IVPB 09/01/16 22:00 09/06/16 21:59 09/02/16 05:52 Metformin HCl (Glucophage) 500 mg BIAC ORAL 09/02/16 06:30 10/02/16 06:29 Metoclopramide HCl (Reglan) 10 mg Q6H PRN IVP servere nausea 09/01/16 18:49 10/01/16 18:48 Nitroglycerin (Ntg) 0.4 mg Q5M X 3 DOSES PRN SL Prn Chest Pain 09/01/16 18:15 10/01/16 18:14 Ondansetron HCl (Zofran) 4 mg Q6H PRN IVP N/V 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 September 02, 2016 09:42
[2016-09-02] MEDS ORDERED: LR 1000ml ONE (11:45)
[2016-09-02] MEDS ORDERED: Lidocaine 1% MPF 10mg/ml 5ml ONE (11:45)
[2016-09-02] MEDS ORDERED: Propofol 10mg/ml 20ml IV ONE (11:45)
--- NOTE | 2016-09-02 11:48 | Pre-Procedure Note/Attestation ---
Pre-Procedure Note/Attestation Complete Prior to Procedure Planned Procedure: not applicable Procedure Narrative: egd Indications for Procedure Pre-Operative Diagnosis: anemia Attestation I attest that I discussed the nature of the procedure; its benefits; risks and complications; and alternatives (and the risks and benefits of such alternatives ), prior to the procedure, with the patient (or the patient's legal labor service representative). I attest that, if there was a reasonable possibility of needing a blood transfusion, the patient (or the patient's legal labor service representative) was given the [facility] standardized written summary, pursuant to the [place] Blood Safety Act ([place] Health and Safety Code # 1645, as amended). I attest that I re-evaluated the patient just prior to the surgery and that there has been no change in the patient's H&P, except as documented below: MICHAEL SINGH September 02, 2016 11:48
--- NOTE | 2016-09-02 11:58 | Endoscopy Procedure Note ---
Endoscopy Procedure Note Indication for Procedure: anemia Procedures Performed: EGD Operative Findings/Diagnosis: gastritis Specimen: yes Pt Tolerated Procedure Well: Yes Estimated Blood Loss: none Anesthesiologist: michael Anesthesia: MAC Implant(s) used?: No 50 yrs or older w/o bx or poly: Not Applicable 10yrs. F/U not recommended: Not Applicable MICHAEL SINGH September 02, 2016 11:58
--- NOTE | 2016-09-02 12:17 | Immediate Post-Op Evaluation ---
Immediate Post-Op Evalulation Immediate Post-Op Evalulation Procedure: EGD Date of Evaluation: September 02, 2016 Time of Evaluation: 12:22 IV Fluids: 200 LR Blood Products: 0 Estimated Blood Loss: 1 Urinary Output: 0 Blood Pressure Systolic: 122 Blood Pressure Diastolic: 65 Pulse Rate: 89 Respiratory Rate: 16 O2 Sat by Pulse Oximetry: 100 Temperature (Fahrenheit): 99 Pain Score (1-10): 0 Nausea: No Vomiting: No Complications 0 Patient Status: awake, reacts, patent, extubated, none Hydration Status: adequate Kelvin Jacinto MD September 02, 2016 12:17
--- NOTE | 2016-09-02 12:18 | 48 Hour Post Anesthesia Eval ---
Post Anesthesia Evaluation Procedure: EGD Date of Evaluation: September 02, 2016 Time of Evaluation: 14:36 Blood Pressure Systolic: 133 0: 67 Pulse Rate: 81 Respiratory Rate: 18 Temperature (Fahrenheit): 99 O2 Sat by Pulse Oximetry: 99 Airway: patent Nausea: No Vomiting: No Pain Intensity: 0 Hydration Status: adequate Cardiopulmonary Status: Stable Mental Status/LOC: patient returned to baseline Follow-up Care/Observations: 0 Post-Anesthesia Complications: 0 Follow-up care needed: N/A Kelvin Jacinto MD September 02, 2016 12:18
--- NOTE | 2016-09-02 16:21 | Cardiac Electrophysiology PN ---
Assessment/Plan Assessment/Plan 1. Status post [employer] pacemaker that was interrogated and showed Nl Fx. 2. History of cardiomyopathy with ejection fraction of 40%. The ejection fraction improved to 50% by echocardiogram. 3. Hypertension. Continue verapamil 240 qd. 4. Bilateral lower extremity deep venous thrombosis. Resume Xarelto if OK with GI. 5. Hyperlipidemia, on Lipitor. 6. Urinary tract infection and sepsis with white count of 20,000 on intravenous meropenem. 7. Hep C. ABIODUN RN. Subjective Subjective Comfortable in NAD. Had EGD and refused colonoscopy. Objective Last 24 Hour Vital Signs Date Time Temp Pulse Resp B/P Pulse Ox O2 Delivery O2 Flow Rate FiO2 09/02/16 12:30 98.8 85 18 114/72 96 Room Air 09/02/16 12:23 Room Air 09/02/16 12:23 Room Air 09/02/16 12:20 83 17 111/64 98 Room Air 09/02/16 12:18 81 18 99 09/02/16 12:17 89 16 100 09/02/16 12:15 81 14 110/62 100 Simple Mask 6.0 09/02/16 12:11 99.0 84 16 133/65 100 Simple Mask 6.0 09/02/16 09:00 84 133/71 09/02/16 07:52 97.2 84 16 133/71 97 Room Air 09/02/16 07:41 86 18 100 Room Air 21 09/02/16 07:33 85 16 98 Room Air 09/02/16 04:00 98.1 90 18 121/72 96 Room Air 09/02/16 00:51 97.7 09/02/16 00:09 88 20 100 Room Air 21 09/02/16 00:08 83 20 98 Room Air 21 09/02/16 00:00 98.1 82 18 119/71 100 Room Air 09/01/16 20:00 97.7 79 18 112/71 97 Room Air 09/01/16 19:30 16 09/01/16 19:30 16 Intake and Output 09/01/16 09/02/16 19:00 07:00 Intake Total 660 ml 1325 ml Balance 660 ml 1325 ml Intake Oral 660 ml 540 ml IV Total 785 ml # Voids 3 1 # Bowel Movements 1 Laboratory Tests Test 09/02/16 05:00 White Blood Count 6.9 K/UL (4.8-10.8) Red Blood Count 3.86 M/UL (4.20-5.40) L Hemoglobin 10.7 G/DL (12.0-16.0) L Hematocrit 32.7 % (37.0-47.0) L Mean Corpuscular Volume 85 FL (80-99) Mean Corpuscular Hemoglobin 27.7 PG (27.0-31.0) Mean Corpuscular Hemoglobin Concent 32.7 G/DL (32.0-36.0) Red Cell Distribution Width 12.7 % (11.6-14.8) Platelet Count 185 K/UL (150-450) Mean Platelet Volume 7.5 FL (6.5-10.1) Neutrophils (%) (Auto) 58.5 % (45.0-75.0) Lymphocytes (%) (Auto) 30.1 % (20.0-45.0) Monocytes (%) (Auto) 6.8 % (1.0-10.0) Eosinophils (%) (Auto) 3.5 % (0.0-3.0) H Basophils (%) (Auto) 1.0 % (0.0-2.0) Prothrombin Time 10.5 SEC (9.30-11.50) Prothromb Time International Ratio 1.0 (0.9-1.1) Activated Partial Thromboplast Time 29 SEC (23-33) Sodium Level 139 mEQ/L (135-145) Potassium Level 3.9 mEQ/L (3.4-4.9) Chloride Level 99 mEQ/L (98-107) Carbon Dioxide Level 25 mEQ/L (20-30) Anion Gap 15 (5-15) Blood Urea Nitrogen 10 mg/dL (7-23) Creatinine 0.7 mg/dL (0.5-0.9) Estimat Glomerular Filtration Rate mL/min (>60) Glucose Level 175 mg/dL (74-106) H Calcium Level 9.1 mg/dL (8.6-10.2) Microbiology Date/Time Source Procedure Growth Status 08/31/16 08:10 Wound Gram Stain - Final Resulted 08/31/16 08:10 Wound Wound Culture - Preliminary Resulted Objective HEAD AND NECK: Showed no JVD. LUNGS: Clear. CARDIOVASCULAR: Shows regular S1 and S2 with no gallop or murmur. Pacemaker in left subclavian intact. ABDOMEN: Soft. EXTREMITIES: No pitting edema. JAMAAL LAWS September 02, 2016 16:21
[2016-09-02] MEDS ORDERED: D5NS 1000ml IV ONE (17:53)
[2016-09-02] MEDS ORDERED: D5 1/2NS 1000ml IV ONE ×2 (17:53→17:58)
[2016-09-02] MEDS ORDERED: Tubing IV Secondary IV ONE ×2 (17:53→17:58)
--- NOTE | 2016-09-02 18:36 | Internal Med Progress Note ---
Subjective Physician Name Wilder Vázquez Attending Physician Zion Echevarria MD Current Medications Medications (Trade) Dose Ordered Sig/Joann Route PRN Reason Start Time Stop Time Status Last Admin Dose Admin Acetaminophen (Tylenol) 650 mg Q4H PRN ORAL fever 09/01/16 18:45 10/01/16 18:44 Acetaminophen/ Hydrocodone Bitart ([place] 5/325) 1 tab Q6H PRN ORAL For Pain 09/01/16 19:00 09/08/16 18:59 09/01/16 23:52 Al Hydroxide/Mg Hydroxide (Mylanta II) 30 ml Q6H PRN ORAL dyspepsia 09/01/16 18:45 10/01/16 18:44 Albuterol Sulfate (Proventil) 2.5 mg Q6HRT HHN 09/01/16 19:00 09/06/16 18:59 09/02/16 07:33 Atorvastatin Calcium (Lipitor) 10 mg BEDTIME ORAL 09/01/16 21:00 10/01/16 20:59 09/01/16 21:29 Dextrose/Sodium Chloride 1,000 ml @ 75 mls/hr [id number] IV 09/01/16 19:00 10/01/16 18:59 09/02/16 08:41 Diphenhydramine HCl (Benadryl) 25 mg Q6H PRN ORAL Itching/Pruritis 09/01/16 18:46 10/01/16 18:45 Docusate Sodium (Colace) 100 mg THREE TIMES A DAY ORAL 09/02/16 09:00 10/02/16 08:59 09/02/16 17:33 Gabapentin (Neurontin) 100 mg TID ORAL 09/02/16 09:00 10/02/16 08:59 09/02/16 17:33 Lorazepam (Ativan 2mg/ml 1ml) 1 mg Q4H PRN IV agitation 09/01/16 18:49 09/08/16 18:48 Memantine (Namenda) 5 mg BID ORAL 09/02/16 09:00 10/02/16 08:59 09/02/16 17:33 Meropenem/Sodium Chloride (Merrem/Sodium Chloride) 110 ml @ 220 mls/hr Q8HR IVPB 09/01/16 22:00 09/10/16 21:59 09/02/16 13:37 Metformin HCl (Glucophage) 500 mg BIAC ORAL 09/02/16 06:30 10/02/16 06:29 09/02/16 17:32 Metoclopramide HCl (Reglan) 10 mg Q6H PRN IVP servere nausea 09/01/16 18:49 10/01/16 18:48 Nitroglycerin (Ntg) 0.4 mg Q5M X 3 DOSES PRN SL Prn Chest Pain 09/01/16 18:15 10/01/16 18:14 Ondansetron HCl (Zofran) 4 mg Q6H PRN IVP N/V FIRST LINE AGENT 09/01/16 18:51 10/01/16 18:50 Pantoprazole (Protonix) 40 mg DAILY ORAL 09/02/16 09:00 10/02/16 08:59 Polyethylene Glycol (Miralax) 17 gm BEDTIME ORAL 09/01/16 21:00 10/01/16 20:59 Polyethylene Glycol (Miralax) 17 gm HSPRN PRN ORAL Constipation 09/01/16 18:52 10/01/16 18:51 Temazepam (Restoril) 15 mg HSPRN PRN ORAL Insomnia 09/01/16 18:53 09/08/16 18:52 Verapamil HCl (Calan SR) 240 mg DAILY ORAL 09/02/16 09:00 10/02/16 08:59 Allergies: Coded Allergies: ERYTHROMYCIN BASE (Verified Allergy, Intermediate, 08/28/16) CODEINE (Verified Allergy, Unknown, 08/28/16) MEPERIDINE (Verified Allergy, Unknown, 08/28/16) PENICILLINS (Verified Allergy, Unknown, 08/28/16) Subjective 75 YO F admitted for fever and gen weakness. Now UTI and sepsis. Cover for Int Med-Dr Echevarria. Objective Last Vital Signs Date Time Temp Pulse Resp B/P Pulse Ox O2 Delivery O2 Flow Rate FiO2 09/02/16 16:00 98.1 106 18 134/60 95 Room Air 09/02/16 12:15 6.0 09/02/16 07:41 21 Laboratory Tests Test 09/02/16 05:00 White Blood Count 6.9 K/UL (4.8-10.8) Red Blood Count 3.86 M/UL (4.20-5.40) L Hemoglobin 10.7 G/DL (12.0-16.0) L Hematocrit 32.7 % (37.0-47.0) L Mean Corpuscular Volume 85 FL (80-99) Mean Corpuscular Hemoglobin 27.7 PG (27.0-31.0) Mean Corpuscular Hemoglobin Concent 32.7 G/DL (32.0-36.0) Red Cell Distribution Width 12.7 % (11.6-14.8) Platelet Count 185 K/UL (150-450) Mean Platelet Volume 7.5 FL (6.5-10.1) Neutrophils (%) (Auto) 58.5 % (45.0-75.0) Lymphocytes (%) (Auto) 30.1 % (20.0-45.0) Monocytes (%) (Auto) 6.8 % (1.0-10.0) Eosinophils (%) (Auto) 3.5 % (0.0-3.0) H Basophils (%) (Auto) 1.0 % (0.0-2.0) Prothrombin Time 10.5 SEC (9.30-11.50) Prothromb Time International Ratio 1.0 (0.9-1.1) Activated Partial Thromboplast Time 29 SEC (23-33) Sodium Level 139 mEQ/L (135-145) Potassium Level 3.9 mEQ/L (3.4-4.9) Chloride Level 99 mEQ/L (98-107) Carbon Dioxide Level 25 mEQ/L (20-30) Anion Gap 15 (5-15) Blood Urea Nitrogen 10 mg/dL (7-23) Creatinine 0.7 mg/dL (0.5-0.9) Estimat Glomerular Filtration Rate mL/min (>60) Glucose Level 175 mg/dL (74-106) H Calcium Level 9.1 mg/dL (8.6-10.2) Microbiology Date/Time Source Procedure Growth Status 08/31/16 08:10 Wound Gram Stain - Final Resulted 08/31/16 08:10 Wound Wound Culture - Preliminary Resulted Intake and Output 09/01/16 09/02/16 19:00 07:00 Intake Total 660 ml 1325 ml Balance 660 ml 1325 ml Intake Oral 660 ml 540 ml IV Total 785 ml # Voids 3 1 # Bowel Movements 1 Objective General: alert, cooperative, no distress, appears stated age Head: normocephalic, without obvious abnormality, atraumatic Eyes: conjunctivae/corneas clear. PERRL, EOM's intact Throat: lips, mucosa, and tongue normal. MMM Neck: supple, symmetrical, trachea midline, and no JVD Lungs: clear to auscultation bilaterally Heart: Sinus tachycardia; regular rhythm, S1, S2 normal, no murmur, click, rub or gallop Abdomen: soft, non-tender, non-distended, bowel sounds normal; no masses or organomegaly Extremities: extremities normal, atraumatic, no cyanosis or edema Pulses: 2+ and symmetric Skin: skin color, texture, turgor normal; no rashes or lesions Neurologic: grossly normal, no focal deficits Assessment/Plan Problem List: (1) Diabetes mellitus, type II Assessment & Plan: Continue novolog sliding scale. (2) Generalized weakness (3) Severe sepsis Assessment & Plan: E.Coli ESBL. See ID note. Cont meropenem. (4) Fever Assessment & Plan: Continues low grade. See ID note. Continue Meropenem D #6/ (5) UTI (urinary tract infection) Assessment & Plan: ESBL E. Coli. D/C ertapenem; start meropenem-see ID note. (6) Leukocytosis (7) Renal failure (8) Sick sinus syndrome Assessment & Plan: S/P pacemaker. Await interrogation. (9) Hypertension Assessment & Plan: Cont hydralazine (10) Hypercholesterolemia Assessment & Plan: Continue lipitor (11) COPD (chronic obstructive pulmonary disease) (12) Dysphagia (13) Sinus tachycardia Assessment & Plan: Await cardiology consult. (14) Toxic metabolic encephalopathy (15) Pacemaker Status: progressing Assessment/Plan Discharge planning: [facility]. Needs PICC WILDER VÁZQUEZ September 02, 2016 18:36
[2016-09-02] MEDS: Miralax 17gm pkt ORAL SCH (21:00)
--- NOTE | 2016-09-02 22:16 | Procedure Note ---
DATE OF PROCEDURE: 09/02/2016 SURGEON: Prabhjot Massey M.D. PROCEDURE: Upper endoscopy with biopsy. ANESTHESIOLOGIST: Kelvin Jacinto M.D. INSTRUMENT: Olympus adult flexible upper endoscope. INDICATION: Anemia. REASON FOR PROCEDURE: The procedure, risks, benefits, and possible consequences, including hemorrhage, aspiration, perforation and infection, and alternative treatments, were explained to the patient/legal guardian by Dr. Prabhjot Massey and the patient/legal guardian understood and accepted these risks. DESCRIPTION OF PROCEDURE: After informed consent was obtained and the patient was adequately sedated, the Olympus upper endoscope was advanced from mouth into the second portion of duodenum and retroflexion was performed in the stomach. The patient has diffuse gastritis. Random biopsy from antrum was obtained to rule out H. pylori infection. Otherwise, the rest of the upper endoscopy examination grossly within normal limits. The patient tolerated the procedure very well without any complication. SUMMARY OF FINDINGS: Gastritis, otherwise normal endoscopic examination. RECOMMENDATIONS: 1. Followup biopsies and treat accordingly. 2. The patient will need outpatient colonoscopy. Prabhjot Massey M.D. DR: Tristan JOB#: [id number] CC:
--- NOTE | 2016-09-02 23:43 | Pulmonology Progress Note ---
Assessment/Plan Problems: (1) Severe sepsis (2) Encephalopathy acute (3) COPD (chronic obstructive pulmonary disease) (4) Gout (5) Hypertension (6) Pacemaker (7) Hepatitis C Assessment/Plan iv antibiotics check blood cultures, Ecoli, f/u with sensitivity continue on Merrem d# 5 / , liver disease stable renal function improving dvt Med/surg Subjective Allergies: Coded Allergies: ERYTHROMYCIN BASE (Verified Allergy, Intermediate, 08/28/16) CODEINE (Verified Allergy, Unknown, 08/28/16) MEPERIDINE (Verified Allergy, Unknown, 08/28/16) PENICILLINS (Verified Allergy, Unknown, 08/28/16) Objective Last 24 Hour Vital Signs Date Time Temp Pulse Resp B/P Pulse Ox O2 Delivery O2 Flow Rate FiO2 09/02/16 23:35 98.4 108 18 124/69 95 Room Air 09/02/16 20:00 97.9 85 18 122/70 93 Room Air 09/02/16 19:35 89 18 100 Room Air 21 09/02/16 19:34 92 16 98 Room Air 09/02/16 16:00 98.1 106 18 134/60 95 Room Air 09/02/16 12:30 98.8 85 18 114/72 96 Room Air 09/02/16 12:23 Room Air 09/02/16 12:23 Room Air 09/02/16 12:20 83 17 111/64 98 Room Air 09/02/16 12:18 81 18 99 09/02/16 12:17 89 16 100 09/02/16 12:15 81 14 110/62 100 Simple Mask 6.0 09/02/16 12:11 99.0 84 16 133/65 100 Simple Mask 6.0 09/02/16 09:00 84 133/71 09/02/16 07:52 97.2 84 16 133/71 97 Room Air 09/02/16 07:41 86 18 100 Room Air 21 09/02/16 07:33 85 16 98 Room Air 09/02/16 04:00 98.1 90 18 121/72 96 Room Air 09/02/16 00:51 97.7 09/02/16 00:09 88 20 100 Room Air 21 09/02/16 00:08 83 20 98 Room Air 21 09/02/16 00:00 98.1 82 18 119/71 100 Room Air Intake and Output 09/01/16 09/02/16 19:00 07:00 Intake Total 660 ml 1325 ml Balance 660 ml 1325 ml Intake Oral 660 ml 540 ml IV Total 785 ml # Voids 3 1 # Bowel Movements 1 Microbiology Date/Time Source Procedure Growth Status 08/31/16 08:10 Wound Gram Stain - Final Resulted 08/31/16 08:10 Wound Wound Culture - Preliminary Resulted Laboratory Tests 09/02/16 05:00: White Blood Count 6.9, Red Blood Count 3.86L, Hemoglobin 10.7L, Hematocrit 32.7L , Mean Corpuscular Volume 85, Mean Corpuscular Hemoglobin 27.7, Mean Corpuscular Hemoglobin Concent 32.7, Red Cell Distribution Width 12.7, Platelet Count 185, Mean Platelet Volume 7.5, Neutrophils (%) (Auto) 58.5, Lymphocytes (% ) (Auto) 30.1, Monocytes (%) (Auto) 6.8, Eosinophils (%) (Auto) 3.5H, Basophils (%) (Auto) 1.0, Prothrombin Time 10.5, Prothromb Time International Ratio 1.0, Activated Partial Thromboplast Time 29, Sodium Level 139, Potassium Level 3.9, Chloride Level 99, Carbon Dioxide Level 25, Anion Gap 15, Blood Urea Nitrogen 10 , Creatinine 0.7, Estimat Glomerular Filtration Rate , Glucose Level 175H, Calcium Level 9.1 Current Medications Medications (Trade) Dose Ordered Sig/Joann Route PRN Reason Start Time Stop Time Status Last Admin Dose Admin Acetaminophen (Tylenol) 650 mg Q4H PRN ORAL fever 09/01/16 18:45 10/01/16 18:44 Acetaminophen/ Hydrocodone Bitart ([place] 5/325) 1 tab Q6H PRN ORAL For Pain 09/01/16 19:00 09/08/16 18:59 09/01/16 23:52 Al Hydroxide/Mg Hydroxide (Mylanta II) 30 ml Q6H PRN ORAL dyspepsia 09/01/16 18:45 10/01/16 18:44 Albuterol Sulfate (Proventil) 2.5 mg Q6HRT HHN 09/01/16 19:00 09/06/16 18:59 09/02/16 19:32 Atorvastatin Calcium (Lipitor) 10 mg BEDTIME ORAL 09/01/16 21:00 10/01/16 20:59 09/02/16 21:25 Chlorhexidine Gluconate (Della-Hex 2%) 1 applic DAILY TOPIC 09/03/16 09:00 10/03/16 08:59 Dextrose/Sodium Chloride 1,000 ml @ 75 mls/hr [id number] IV 09/01/16 19:00 10/01/16 18:59 09/02/16 21:25 Diphenhydramine HCl (Benadryl) 25 mg Q6H PRN ORAL Itching/Pruritis 09/01/16 18:46 10/01/16 18:45 Docusate Sodium (Colace) 100 mg THREE TIMES A DAY ORAL 09/02/16 09:00 10/02/16 08:59 09/02/16 17:33 Gabapentin (Neurontin) 100 mg TID ORAL 09/02/16 09:00 10/02/16 08:59 09/02/16 17:33 Heparin Sodium/ Sodium Chloride (Heparin 2000 units/Ns 1000ml premix) 2,000 unit ONCE ONCE INJ 09/03/16 09:00 09/03/16 09:01 Lidocaine HCl (Xylocaine 1% 30ml) 30 ml ONCE ONCE INJ 09/03/16 09:00 09/03/16 09:01 Lorazepam (Ativan 2mg/ml 1ml) 1 mg Q4H PRN IV agitation 09/01/16 18:49 09/08/16 18:48 Memantine (Namenda) 5 mg BID ORAL 09/02/16 09:00 10/02/16 08:59 09/02/16 17:33 Meropenem/Sodium Chloride (Merrem/Sodium Chloride) 110 ml @ 220 mls/hr Q8HR IVPB 09/01/16 22:00 09/10/16 21:59 09/02/16 21:25 Metformin HCl (Glucophage) 500 mg BIAC ORAL 09/02/16 06:30 10/02/16 06:29 09/02/16 17:32 Metoclopramide HCl (Reglan) 10 mg Q6H PRN IVP servere nausea 09/01/16 18:49 10/01/16 18:48 Nitroglycerin (Ntg) 0.4 mg Q5M X 3 DOSES PRN SL Prn Chest Pain 09/01/16 18:15 10/01/16 18:14 Ondansetron HCl (Zofran) 4 mg Q6H PRN IVP N/V FIRST LINE AGENT 09/01/16 18:51 10/01/16 18:50 Pantoprazole (Protonix) 40 mg DAILY ORAL 09/02/16 09:00 10/02/16 08:59 Polyethylene Glycol (Miralax) 17 gm BEDTIME ORAL 09/01/16 21:00 10/01/16 20:59 Polyethylene Glycol (Miralax) 17 gm HSPRN PRN ORAL Constipation 09/01/16 18:52 10/01/16 18:51 Rivaroxaban (Xarelto) 20 mg DAILY ORAL 09/03/16 09:00 10/03/16 08:59 Sodium Bicarbonate (Sodium Bicarbonate 4%) 1 ml ONCE ONCE INJ 09/03/16 09:00 09/03/16 09:01 Temazepam (Restoril) 15 mg HSPRN PRN ORAL Insomnia 09/01/16 18:53 09/08/16 18:52 Verapamil HCl (Calan SR) 240 mg DAILY ORAL 09/02/16 09:00 10/02/16 08:59 JONH RODRIGUEZ September 02, 2016 23:43
[2016-09-03] MEDS: Albuterol ud Inhalation HHN SCH ×3 (01:25→12:41)
[2016-09-03 04:00] VITALS: BP 100/71
[2016-09-03] MEDS: Meropenem 1 GM in NS 110 ML IVPB SCH (06:02)
[2016-09-03] MEDS: metFORMIN 500mg tab ORAL SCH (06:02)
[2016-09-03 06:54] LABS: BASOPHILS % (AUTO) 1.8 % (0.0-2.0); EOSINOPHILS % (AUTO) 3.4 % (0.0-3.0); LYMPHOCYTES % (AUTO) 32.1 % (20.0-45.0); MEAN CORPUSCULAR HEMOGLOBIN 27.9 PG (27.0-31.0); MEAN CORPUSCULAR HGB CONC 33.2 G/DL (32.0-36.0); MEAN CORPUSCULAR VOLUME 84 FL (80-99); MEAN PLATELET VOLUME 7.2 FL (6.5-10.1); MONOCYTES % (AUTO) 8.7 % (1.0-10.0); PLATELET COUNT 208 K/UL (150-450); RED BLOOD COUNT 3.82 M/UL (4.20-5.40); RED CELL DISTRIBUTION WIDTH 12.7 % (11.6-14.8); WHITE BLOOD COUNT 6.4 K/UL (4.8-10.8)
[2016-09-03 07:02] LABS: ANION GAP 14 (5-15); CALCIUM 9.4 mg/dL (8.6-10.2); CARBON DIOXIDE 25 mEQ/L (20-30); CHLORIDE 100 mEQ/L (98-107); CREATININE 0.5 mg/dL (0.5-0.9); HEMOLYSIS 0; POTASSIUM 3.7 mEQ/L (3.4-4.9); SODIUM 139 mEQ/L (135-145)
[2016-09-03] MEDS: Docusate 100mg cap ORAL SCH (08:38)
[2016-09-03] MEDS: Verapamil SR 240mg tab ORAL SCH (08:39)
[2016-09-03] MEDS: Memantine 10mg tab ORAL SCH (08:39)
[2016-09-03 09:00] VITALS: BP 122/73
[2016-09-03] MEDS ORDERED: Lidocaine 1% Plain 30 ml INJ ONE (09:00)
[2016-09-03] MEDS ORDERED: Dyna-Hex 2% Top Sol 8oz TOPIC SCH (09:00)
[2016-09-03] MEDS ORDERED: Xarelto 10mg tab ORAL SCH (09:00)
[2016-09-03] MEDS ORDERED: Sodium Bicarbonate 4% 2.4meq/5ml vial INJ ONE (09:00)
[2016-09-03] MEDS ORDERED: Heparin 2000 units/Ns 1000ml INJ ONE (09:00)
--- NOTE | 2016-09-03 10:02 | Internal Med Progress Note ---
Subjective Date of Service: September 03, 2016 Physician Name Chema Vázquez Attending Physician Zion Echevarria MD Current Medications Medications (Trade) Dose Ordered Sig/Joann Route PRN Reason Start Time Stop Time Status Last Admin Dose Admin Acetaminophen (Tylenol) 650 mg Q4H PRN ORAL fever 09/01/16 18:45 10/01/16 18:44 Acetaminophen/ Hydrocodone Bitart ([place] 5/325) 1 tab Q6H PRN ORAL For Pain 09/01/16 19:00 09/08/16 18:59 09/01/16 23:52 Al Hydroxide/Mg Hydroxide (Mylanta II) 30 ml Q6H PRN ORAL dyspepsia 09/01/16 18:45 10/01/16 18:44 Albuterol Sulfate (Proventil) 2.5 mg Q6HRT HHN 09/01/16 19:00 09/06/16 18:59 09/03/16 07:57 Atorvastatin Calcium (Lipitor) 10 mg BEDTIME ORAL 09/01/16 21:00 10/01/16 20:59 09/02/16 21:25 Chlorhexidine Gluconate (Della-Hex 2%) 1 applic DAILY TOPIC 09/03/16 09:00 10/03/16 08:59 Dextrose/Sodium Chloride 1,000 ml @ 75 mls/hr [id number] IV 09/01/16 19:00 10/01/16 18:59 09/02/16 21:25 Diphenhydramine HCl (Benadryl) 25 mg Q6H PRN ORAL Itching/Pruritis 09/01/16 18:46 10/01/16 18:45 Docusate Sodium (Colace) 100 mg THREE TIMES A DAY ORAL 09/02/16 09:00 10/02/16 08:59 09/03/16 08:38 Gabapentin (Neurontin) 100 mg TID ORAL 09/02/16 09:00 10/02/16 08:59 09/03/16 08:38 Lorazepam (Ativan 2mg/ml 1ml) 1 mg Q4H PRN IV agitation 09/01/16 18:49 09/08/16 18:48 Memantine (Namenda) 5 mg BID ORAL 09/02/16 09:00 10/02/16 08:59 09/03/16 08:39 Meropenem/Sodium Chloride (Merrem/Sodium Chloride) 110 ml @ 220 mls/hr Q8HR IVPB 09/01/16 22:00 09/10/16 21:59 09/03/16 06:02 Metformin HCl (Glucophage) 500 mg BIAC ORAL 09/02/16 06:30 10/02/16 06:29 09/03/16 06:02 Metoclopramide HCl (Reglan) 10 mg Q6H PRN IVP servere nausea 09/01/16 18:49 10/01/16 18:48 Nitroglycerin (Ntg) 0.4 mg Q5M X 3 DOSES PRN SL Prn Chest Pain 09/01/16 18:15 10/01/16 18:14 Ondansetron HCl (Zofran) 4 mg Q6H PRN IVP N/V FIRST LINE AGENT 09/01/16 18:51 10/01/16 18:50 Pantoprazole (Protonix) 40 mg DAILY ORAL 09/02/16 09:00 10/02/16 08:59 09/03/16 08:38 Polyethylene Glycol (Miralax) 17 gm BEDTIME ORAL 09/01/16 21:00 10/01/16 20:59 Polyethylene Glycol (Miralax) 17 gm HSPRN PRN ORAL Constipation 09/01/16 18:52 10/01/16 18:51 Rivaroxaban (Xarelto) 20 mg DAILY ORAL 09/03/16 09:00 10/03/16 08:59 Temazepam (Restoril) 15 mg HSPRN PRN ORAL Insomnia 09/01/16 18:53 09/08/16 18:52 Verapamil HCl (Calan SR) 240 mg DAILY ORAL 09/02/16 09:00 10/02/16 08:59 09/03/16 08:39 Allergies: Coded Allergies: ERYTHROMYCIN BASE (Verified Allergy, Intermediate, 08/28/16) CODEINE (Verified Allergy, Unknown, 08/28/16) MEPERIDINE (Verified Allergy, Unknown, 08/28/16) PENICILLINS (Verified Allergy, Unknown, 08/28/16) ROS Limited/Unobtainable: No Constitutional: Reports: no symptoms HEENT: Reports: no symptoms Cardiovascular: Reports: no symptoms Respiratory: Reports: no symptoms Gastrointestinal/Abdominal: Reports: no symptoms Genitourinary: Reports: no symptoms Neurologic/Psychiatric: Reports: no symptoms Subjective 75 YO F admitted for fever and gen weakness. Now UTI and sepsis. Cover for Int Med-Dr Echevarria. S/P EGD and Colonoscopy on 09/02/16. Patient refused PICC. Await transfer to [facility] today Objective Last Vital Signs Date Time Temp Pulse Resp B/P Pulse Ox O2 Delivery O2 Flow Rate FiO2 09/03/16 09:00 98.1 91 20 122/73 100 Room Air 09/03/16 08:02 21 09/02/16 12:15 6.0 Laboratory Tests Test 09/03/16 05:20 White Blood Count 6.4 K/UL (4.8-10.8) Red Blood Count 3.82 M/UL (4.20-5.40) L Hemoglobin 10.6 G/DL (12.0-16.0) L Hematocrit 32.1 % (37.0-47.0) L Mean Corpuscular Volume 84 FL (80-99) Mean Corpuscular Hemoglobin 27.9 PG (27.0-31.0) Mean Corpuscular Hemoglobin Concent 33.2 G/DL (32.0-36.0) Red Cell Distribution Width 12.7 % (11.6-14.8) Platelet Count 208 K/UL (150-450) Mean Platelet Volume 7.2 FL (6.5-10.1) Neutrophils (%) (Auto) 54.0 % (45.0-75.0) Lymphocytes (%) (Auto) 32.1 % (20.0-45.0) Monocytes (%) (Auto) 8.7 % (1.0-10.0) Eosinophils (%) (Auto) 3.4 % (0.0-3.0) H Basophils (%) (Auto) 1.8 % (0.0-2.0) Sodium Level 139 mEQ/L (135-145) Potassium Level 3.7 mEQ/L (3.4-4.9) Chloride Level 100 mEQ/L (98-107) Carbon Dioxide Level 25 mEQ/L (20-30) Anion Gap 14 (5-15) Blood Urea Nitrogen 9 mg/dL (7-23) Creatinine 0.5 mg/dL (0.5-0.9) Estimat Glomerular Filtration Rate mL/min (>60) Glucose Level 141 mg/dL (74-106) H Calcium Level 9.4 mg/dL (8.6-10.2) Intake and Output 09/02/16 09/03/16 19:00 07:00 Intake Total 1160 ml 1445 ml Output Total 0 ml Balance 1160 ml 1445 ml Intake Oral 200 ml 475 ml IV Total 960 ml 970 ml Estimated Blood Loss 0 ml # Voids 1 4 Objective General: alert, cooperative, no distress, appears stated age Head: normocephalic, without obvious abnormality, atraumatic Eyes: conjunctivae/corneas clear. PERRL, EOM's intact Throat: lips, mucosa, and tongue normal. MMM Neck: supple, symmetrical, trachea midline, and no JVD Lungs: clear to auscultation bilaterally Heart: Sinus tachycardia; regular rhythm, S1, S2 normal, no murmur, click, rub or gallop Abdomen: soft, non-tender, non-distended, bowel sounds normal; no masses or organomegaly Extremities: extremities normal, atraumatic, no cyanosis or edema Pulses: 2+ and symmetric Skin: skin color, texture, turgor normal; no rashes or lesions Neurologic: grossly normal, no focal deficits Assessment/Plan Problem List: (1) Diabetes mellitus, type II Assessment & Plan: Continue novolog sliding scale. (2) Generalized weakness (3) Severe sepsis Assessment & Plan: E.Coli ESBL. See ID note. D/C meropenem; patient refused PICC. Change to Invanz q 24 hr via peripheral IV. (4) Fever Assessment & Plan: Continues low grade. See ID note. Continue Meropenem D #/ (5) UTI (urinary tract infection) Assessment & Plan: ESBL E. Coli. D/C ertapenem; start meropenem-see ID note. (6) Leukocytosis (7) Renal failure (8) Sick sinus syndrome Assessment & Plan: S/P pacemaker. Await interrogation. (9) Hypertension Assessment & Plan: Cont hydralazine (10) Hypercholesterolemia Assessment & Plan: Continue lipitor (11) COPD (chronic obstructive pulmonary disease) (12) Dysphagia (13) Sinus tachycardia Assessment & Plan: Await cardiology consult. (14) Toxic metabolic encephalopathy (15) Pacemaker (16) Nausea & vomiting (17) Hepatitis C Assessment/Plan Discharge planning: Transfer to [facility] today 09/03/16. Patient refused PICC; change antibiotic from meropenem to Invanz with peripheral IV CHEMA VÁZQUEZ September 03, 2016 10:02
[2016-09-03] MEDS ORDERED: INVANZ1 GM IVPB (10:13)
[2016-09-03] MEDS ORDERED: XARELTO10 MG ORAL (10:13)
[2016-09-03] MEDS: D5 1/2NS 1,000 ML IV SCH (11:00)
--- NOTE | 2016-09-03 11:31 | GI Progress Note ---
Assessment/Plan Problems: (1) Failure to thrive ICD Codes: FSJ3926 - Reserved for [id number] codable problem concepts SNOMED: 13506487 (2) Nausea & vomiting ICD Codes: R11.2 - Nausea with vomiting, unspecified SNOMED: 87410320 Qualifiers: Qualified Codes: R11.2 - Nausea with vomiting, unspecified (3) Altered mental status ICD Codes: R41.82 - Altered mental status, unspecified SNOMED: 201549235 (4) Hepatitis C ICD Codes: B19.20 - Unspecified viral hepatitis C without hepatic coma SNOMED: 74095181 (5) Generalized weakness ICD Codes: R53.1 - Weakness SNOMED: 21620127 (6) Anemia ICD Codes: D64.9 - Anemia, unspecified SNOMED: 590178727 (7) Pacemaker ICD Codes: Z95.0 - Presence of cardiac pacemaker SNOMED: 507665862 Status: stable, unchanged Status Narrative Discussed with Dr. Massey. Assessment/Plan S/P EGD SUMMARY OF FINDINGS: Gastritis, otherwise normal endoscopic examination. Hep C positive >> outpt tx elevated alkaline phos DM induced gastroparesis >> reglan hold MRCP >> pt has pacemaker abdominal U/S reviewed >> Coarsened liver echotexture compatible with chronic hepatocellular disease, nonspecific. RECOMMENDATIONS: 1. Followup biopsies and treat accordingly. 2. The patient will need outpatient colonoscopy. okay for DC per GI standpoint ok to continue xarelto monitor LFTs monitor H&H, transfuse prn ppi bowel regime fu labs Subjective Subjective constipated Objective Last 24 Hour Vital Signs Date Time Temp Pulse Resp B/P Pulse Ox O2 Delivery O2 Flow Rate FiO2 09/03/16 09:00 98.1 91 20 122/73 100 Room Air 09/03/16 08:39 94 122/75 09/03/16 08:02 94 18 100 Room Air 21 09/03/16 07:57 92 18 94 Room Air 09/03/16 04:00 97.5 89 18 100/71 94 Room Air 09/03/16 01:27 106 16 97 Room Air 09/03/16 01:27 107 18 100 Room Air 21 09/02/16 23:35 98.4 108 18 124/69 95 Room Air 09/02/16 20:00 97.9 85 18 122/70 93 Room Air 09/02/16 19:35 89 18 100 Room Air 21 09/02/16 19:34 92 16 98 Room Air 09/02/16 16:00 98.1 106 18 134/60 95 Room Air 09/02/16 12:30 98.8 85 18 114/72 96 Room Air 09/02/16 12:23 Room Air 09/02/16 12:23 Room Air 09/02/16 12:20 83 17 111/64 98 Room Air 09/02/16 12:18 81 18 99 09/02/16 12:17 89 16 100 09/02/16 12:15 81 14 110/62 100 Simple Mask 6.0 09/02/16 12:11 99.0 84 16 133/65 100 Simple Mask 6.0 Intake and Output 09/02/16 09/03/16 19:00 07:00 Intake Total 1160 ml 1445 ml Output Total 0 ml Balance 1160 ml 1445 ml Intake Oral 200 ml 475 ml IV Total 960 ml 970 ml Estimated Blood Loss 0 ml # Voids 1 4 Laboratory Tests Test 09/03/16 05:20 White Blood Count 6.4 K/UL (4.8-10.8) Red Blood Count 3.82 M/UL (4.20-5.40) L Hemoglobin 10.6 G/DL (12.0-16.0) L Hematocrit 32.1 % (37.0-47.0) L Mean Corpuscular Volume 84 FL (80-99) Mean Corpuscular Hemoglobin 27.9 PG (27.0-31.0) Mean Corpuscular Hemoglobin Concent 33.2 G/DL (32.0-36.0) Red Cell Distribution Width 12.7 % (11.6-14.8) Platelet Count 208 K/UL (150-450) Mean Platelet Volume 7.2 FL (6.5-10.1) Neutrophils (%) (Auto) 54.0 % (45.0-75.0) Lymphocytes (%) (Auto) 32.1 % (20.0-45.0) Monocytes (%) (Auto) 8.7 % (1.0-10.0) Eosinophils (%) (Auto) 3.4 % (0.0-3.0) H Basophils (%) (Auto) 1.8 % (0.0-2.0) Sodium Level 139 mEQ/L (135-145) Potassium Level 3.7 mEQ/L (3.4-4.9) Chloride Level 100 mEQ/L (98-107) Carbon Dioxide Level 25 mEQ/L (20-30) Anion Gap 14 (5-15) Blood Urea Nitrogen 9 mg/dL (7-23) Creatinine 0.5 mg/dL (0.5-0.9) Estimat Glomerular Filtration Rate mL/min (>60) Glucose Level 141 mg/dL (74-106) H Calcium Level 9.4 mg/dL (8.6-10.2) Height (Feet): 5 Height (Inches): 5.00 Weight (Pounds): 232 General Appearance: no apparent distress, alert, obese Cardiovascular: normal rate Respiratory/Chest: normal breath sounds, no respiratory distress Abdominal Exam: normal bowel sounds, non tender Juanita Friedman N.P. September 03, 2016 11:31
[2016-09-03] MEDS ORDERED: Ertapenem 1 GM in NS 55 ML IVPB SCH (12:00)
[2016-09-03 12:39] VITALS: BP 121/75
[2016-09-03] MEDS ORDERED: D5 1/2NS 1000ml IV ONE (12:39)
--- NOTE | 2016-09-03 23:57 | Pulmonology Progress Note ---
Assessment/Plan Problems: (1) Severe sepsis (2) Encephalopathy acute (3) COPD (chronic obstructive pulmonary disease) (4) Gout (5) Hypertension (6) Pacemaker (7) Hepatitis C Assessment/Plan iv antibiotics check blood cultures, Ecoli, f/u with sensitivity continue on Merrem d# , liver disease stable renal function improving dvt Med/surg Subjective Allergies: Coded Allergies: ERYTHROMYCIN BASE (Verified Allergy, Intermediate, 08/28/16) CODEINE (Verified Allergy, Unknown, 08/28/16) MEPERIDINE (Verified Allergy, Unknown, 08/28/16) PENICILLINS (Verified Allergy, Unknown, 08/28/16) Objective Last 24 Hour Vital Signs Date Time Temp Pulse Resp B/P Pulse Ox O2 Delivery O2 Flow Rate FiO2 09/03/16 12:42 Room Air 09/03/16 12:42 Room Air 09/03/16 12:39 98.1 85 20 121/75 100 Room Air 09/03/16 09:00 98.1 91 20 122/73 100 Room Air 09/03/16 08:39 94 122/75 09/03/16 08:02 94 18 100 Room Air 21 09/03/16 07:57 92 18 94 Room Air 09/03/16 04:00 97.5 89 18 100/71 94 Room Air 09/03/16 01:27 106 16 97 Room Air 09/03/16 01:27 107 18 100 Room Air 21 Intake and Output 09/02/16 09/03/16 19:00 07:00 Intake Total 1160 ml 1445 ml Output Total 0 ml Balance 1160 ml 1445 ml Intake Oral 200 ml 475 ml IV Total 960 ml 970 ml Estimated Blood Loss 0 ml # Voids 1 4 Laboratory Tests 09/03/16 05:20: White Blood Count 6.4, Red Blood Count 3.82L, Hemoglobin 10.6L, Hematocrit 32.1L , Mean Corpuscular Volume 84, Mean Corpuscular Hemoglobin 27.9, Mean Corpuscular Hemoglobin Concent 33.2, Red Cell Distribution Width 12.7, Platelet Count 208, Mean Platelet Volume 7.2, Neutrophils (%) (Auto) 54.0, Lymphocytes (% ) (Auto) 32.1, Monocytes (%) (Auto) 8.7, Eosinophils (%) (Auto) 3.4H, Basophils (%) (Auto) 1.8, Sodium Level 139, Potassium Level 3.7, Chloride Level 100, Carbon Dioxide Level 25, Anion Gap 14, Blood Urea Nitrogen 9, Creatinine 0.5, Estimat Glomerular Filtration Rate , Glucose Level 141H, Calcium Level 9.4 JONH RODRIGUEZ September 03, 2016 23:57
== END 2016-09-03 12:40 | DRG 871 ==
LOC: EDBD 00:09 → EMR 00:33 → 2E 01:32 → EDBEDREQ 01:45 → 4W 09-01 17:45
PROC: 0DB68ZX Excision of Stomach, Via Natural or Artificial Opening Endoscopic, Diagnostic (ICD-10-PCS; principal; 2016-09-02 11:54)
DX: A41.9 Sepsis, unspecified organism (principal); G93.41 Metabolic encephalopathy; I49.5 Sick sinus syndrome; E11.65 Type 2 diabetes mellitus with hyperglycemia; E11.43 Type 2 diabetes mellitus with diabetic autonomic (poly)neuropathy; K31.84 Gastroparesis; J44.9 Chronic obstructive pulmonary disease, unspecified; N30.00 Acute cystitis without hematuria; N20.0 Calculus of kidney; R13.10 Dysphagia, unspecified; R65.20 Severe sepsis without septic shock; I10 Essential (primary) hypertension; M10.9 Gout, unspecified; Z95.0 Presence of cardiac pacemaker; K29.70 Gastritis, unspecified, without bleeding; B96.20 Unspecified Escherichia coli [E. coli] as the cause of diseases classified elsewhere; Z16.12 Extended spectrum beta lactamase (ESBL) resistance; Z88.0 Allergy status to penicillin; Z88.8 Allergy status to other drugs, medicaments and biological substances; Z79.84 Long term (current) use of oral hypoglycemic drugs; Z79.01 Long term (current) use of anticoagulants; Z79.899 Other long term (current) drug therapy; E78.00 Pure hypercholesterolemia, unspecified; B19.20 Unspecified viral hepatitis C without hepatic coma; Z86.718 Personal history of other venous thrombosis and embolism; R62.7 Adult failure to thrive
CPT/HCPCS: 36415; 71010; 76700; 80048; 80053; 81003; 82150; 82550; 82553; 82962; 83036; 83540; 83550; 83605; 83690; 83735; 84100; 84484; 85007; 85025; 85610; 85730; 87040; 87070; 87081; 87086; 87181; 87205; 93005; 94003; 94150; 94640; 97802; J1815; J2405

== ENCOUNTER 2017-01-16 16:51 | Inpatient (IN) | payer MEDICARE, MEDICAID ==
[~2017-01-16] VITALS: Ht 167.6 cm; Wt 104.3 kg
[~2017-01-16 16:51] MED LIST changes: +INVANZ1 GM IVPB; +OMEPRAZOLE20 M2 ORAL; +XARELTO10 MG ORAL
[2017-01-16] MEDS ORDERED: oxyCODONE HCL/Acetaminophen 5/325mg ORAL ONE (18:45)
--- NOTE | 2017-01-16 18:51 | Emergency Room Report ---
History of Present Illness General Chief Complaint: Female Urogenital Problems Source: Patient Present Illness HPI 76YOF BIBEMS from SNF with 3-4 days dysuria No assoc fever/chills, abd pain, nausea/vomiting, chest pain, SOB Also c/o pain to left ankle - has had "cast" on ankle for "2-3 months" following ankle fx. Was placed at outside hospital. Never saw orthopedist. Not sure which bone fx. Was admitted previously for sepsis/august 2016 "1. Severe sepsis secondary to extended-spectrum beta-lactamases bacteremia and urinary tract infection." Allergies: Coded Allergies: ERYTHROMYCIN BASE (Verified Allergy, Intermediate, 08/28/16) CODEINE (Verified Allergy, Unknown, 08/28/16) MEPERIDINE (Verified Allergy, Unknown, 08/28/16) PENICILLINS (Verified Allergy, Unknown, 08/28/16) Patient History Past Medical History: see triage record, old chart reviewed Past Surgical History: none Pertinent Family History: none Social History: Denies: smoking, alcohol use, drug use Nursing Documentation-PMH Hx Cardiac Problems: Yes Hx Hypertension: Yes Hx Pacemaker: Yes - left chest Hx Asthma: Yes Hx COPD: Yes Hx Diabetes: Yes Hx Cancer: No Hx Gastrointestinal Problems: Yes Hx Neurological Problems: Yes Hx Dementia: Yes Hx Weakness: Yes Review of Systems All Other Systems: negative except mentioned in HPI Physical Exam Vital Signs Date Time Temp Pulse Resp B/P (MAP) Pulse Ox O2 Delivery O2 Flow Rate FiO2 01/16/17 16:56 98.2 115 15 144/90 95 Room Air Sp02 EP Interpretation: reviewed, normal General Appearance: normal inspection, well appearing, no apparent distress, alert, GCS 15, non-toxic, other - Well appearing, sitting upright. Smiling, conversant Head: normocephalic, atraumatic Eyes: bilateral eye PERRL, bilateral eye EOMI ENT: normal ENT inspection, hearing grossly normal, normal voice Neck: normal inspection, full range of motion, supple, no bony tend Respiratory: normal inspection, lungs clear, normal breath sounds, no respiratory distress, no retraction, no wheezing Cardiovascular #1: regular rate, rhythm, no edema Gastrointestinal: normal inspection, normal bowel sounds, non tender, soft, no guarding, no hernia Genitourinary: no CVA tenderness Musculoskeletal: normal inspection, back normal, normal range of motion, Lorne' s Sign negative, other - Cast on left ankle to mid-calf. Able to move toes. Neurologic: normal inspection, alert, responsive, speech normal Psychiatric: normal inspection, judgement/insight normal, mood/affect normal Skin: normal inspection, normal color, no rash Medical Decision Making Medicare Attestation I Derek Anne MD hereby attest that the medical record entry for date of service, 01/16/17 accurately reflects signatures/notations that I made in my capacity as MD when I treated/diagnosed the above listed Medicare beneficiary. I attest that this information is true, accurate and complete to the best of my knowledge. I understand that any falsification, omission, or concealment of material fact may subject me to administrative, civil, or criminal liability. This patient warrants hospital admission for extreme of age and has a condition that cannot be treated as outpatient. Diagnostic Impression: Primary Impression: Closed left ankle fracture Qualified Codes: S82.892D - Other fracture of left lower leg, subsequent encounter for closed fracture with routine healing Additional Impressions: Dysuria UTI (urinary tract infection) Qualified Codes: N30.01 - Acute cystitis with hematuria ER Course VSS. Afebrile. No leuks. H&H stable. CMP: no acute abnormality UA: grossly infected Blood Cx pending Meropenem given. Based on last urine Cx, only appropriate option for suspected UTI Left ankle pain -Cast removed - Pain improved, ROM intact Xray Left ankle 3 views ED review Healing distal fibula fx, chronic osteo Dr Derek Anne MD Endorsed to Dr Echevarria as PMD at 8pm for med/surg admission EKG Diagnostic Results Rate: tachycardiac Rhythm: NSR ST Segments: no acute changes ASA given to the pt in ED: No Rhythm Strip Diag. Results EP Interpretation: yes Rate: 114 Rhythm: NSR, no PVC's, no ectopy Chest X-Ray Diagnostic Results Chest X-Ray Diagnostic Results : Chest X-Ray Ordered: Yes # of Views/Limited/Complete: 1 View Indication: Other - Admit EP Interpretation: Yes Interpretation: no consolidation, no effusion, no pneumothorax, no acute cardiopulmonary disease Impression: No acute disease Electronically Signed by: Dr Derek Anne MD Last Vital Signs Date Time Temp Pulse Resp B/P (MAP) Pulse Ox O2 Delivery O2 Flow Rate FiO2 01/16/17 16:56 98.2 115 15 144/90 95 Room Air Status: improved Disposition: ADMITTED INPATIENT Condition: Serious DEREK ANNE M.D. Jan 16, 2017 18:51
[2017-01-16 19:33] LABS: EOSINOPHILS % (AUTO) 3.9 % (0.0-3.0); LYMPHOCYTES % (AUTO) 34.1 % (20.0-45.0); MEAN CORPUSCULAR HEMOGLOBIN 25.2 PG (27.0-31.0); MEAN CORPUSCULAR VOLUME 84 FL (80-99); MEAN PLATELET VOLUME 7.7 FL (6.5-10.1); MONOCYTES % (AUTO) 7.8 % (1.0-10.0); NEUTROPHILS % (AUTO) 52.2 % (45.0-75.0); PLATELET COUNT 185 K/UL (150-450); RED BLOOD COUNT 5.13 M/UL (4.20-5.40); RED CELL DISTRIBUTION WIDTH 13.5 % (11.6-14.8); WHITE BLOOD COUNT 6.7 K/UL (4.8-10.8)
[2017-01-16 20:00] LABS: APPEARANCE,URINE CLOUDY; KETONES,URINE NEGATIVE (NEGATIVE); LEUKOCYTE ESTERASE ,URINE 3+ (NEGATIVE); NITRITE,URINE POSITIVE (NEGATIVE); PH,URINE 6.5 (4.5-8.0); PROTEIN,URINE 3+ (NEGATIVE); UROBILINOGEN,URINE 1 MG/DL (0.0-1.0)
[2017-01-16] MEDS ORDERED: Meropenem 1 GM in NS 110 ML IVPB ONE (20:00)
[2017-01-16 20:02] LABS: ALANINE AMINOTRANSFERASE 17 U/L (3-33); ALBUMIN/GLOBULIN RATIO 1.1 (1.0-2.7); ANION GAP 14 (5-15); ASPARTATE AMINO TRANSFERASE 18 U/L (5-40); CALCIUM 9.7 mg/dL (8.6-10.2); CARBON DIOXIDE 25 mEQ/L (20-30); CHLORIDE 103 mEQ/L (98-107); CREATININE 0.7 mg/dL (0.5-0.9); HEMOLYSIS 3; POTASSIUM 3.7 mEQ/L (3.4-4.9); SODIUM 142 mEQ/L (135-145); TOTAL PROTEIN 7.5 g/dL (6.6-8.7)
[2017-01-16 20:10] LABS: BACTERIA,URINE MANY /HPF; RBC,URINE 30-40 /HPF (0 - 2); SQUAMOUS EPITHELIAL CELL,UR MANY /LPF (NONE/OCC); WBC,URINE TNTC /HPF (0 - 2)
[2017-01-16] MEDS ORDERED: Meropenem 1gm vial ONE (20:17)
[2017-01-16 20:41] VITALS: BP 118/87
[2017-01-16] MEDS ORDERED: UNOBMED (21:16)
[2017-01-16] MEDS ORDERED: Nitroglycerin Subl 0.4mg tab SL PRN (21:30)
[2017-01-16] MEDS ORDERED: Albuterol/Ipratropium 3ml neb HHN PRN (21:30)
[2017-01-16] MEDS ORDERED: Miralax 17gm pkt ORAL PRN (21:30)
[2017-01-16 21:55] VITALS: BP 122/78
[2017-01-16] MEDS: Vancomycin 1 GM in D5W 275 ML IVPB SCH (22:51)
[2017-01-16] MEDS ORDERED: DiphenhydrAMINE 50mg/ml Inj IVP PRN (23:00)
[2017-01-17] VITALS: BP 116/68
[2017-01-17 04:00] VITALS: BP 131/81
[2017-01-17] MEDS: HydrALAZINE 10mg Tab ORAL SCH ×5 (06:00→23:49)
[2017-01-17] MEDS: NovoLOG Insulin Flexpen SUBQ SCH ×4 (06:01→20:15)
[2017-01-17 07:06] LABS: APPEARANCE,URINE SLIGHTLY CLOUDY; KETONES,URINE NEGATIVE (NEGATIVE); LEUKOCYTE ESTERASE ,URINE 3+ (NEGATIVE); NITRITE,URINE POSITIVE (NEGATIVE); PH,URINE 7 (4.5-8.0); PROTEIN,URINE 2+ (NEGATIVE); UROBILINOGEN,URINE 1 MG/DL (0.0-1.0)
[2017-01-17 07:27] LABS: BACTERIA,URINE FEW /HPF; RBC,URINE 20-30 /HPF (0 - 2); SQUAMOUS EPITHELIAL CELL,UR FEW /LPF (NONE/OCC); WBC,URINE 30-40 /HPF (0 - 2)
[2017-01-17 07:40] LABS: BASOPHILS % (AUTO) 1.2 % (0.0-2.0); LYMPHOCYTES % (AUTO) 40.9 % (20.0-45.0); MEAN CORPUSCULAR HEMOGLOBIN 26.5 PG (27.0-31.0); MEAN CORPUSCULAR HGB CONC 31.7 G/DL (32.0-36.0); MEAN CORPUSCULAR VOLUME 84 FL (80-99); MEAN PLATELET VOLUME 8.6 FL (6.5-10.1); MONOCYTES % (AUTO) 9.7 % (1.0-10.0); NEUTROPHILS % (AUTO) 44.2 % (45.0-75.0); PLATELET COUNT 188 K/UL (150-450); RED BLOOD COUNT 4.76 M/UL (4.20-5.40); RED CELL DISTRIBUTION WIDTH 13.1 % (11.6-14.8); WHITE BLOOD COUNT 5.9 K/UL (4.8-10.8)
[2017-01-17 07:45] LABS: ALANINE AMINOTRANSFERASE 14 U/L (3-33); ALBUMIN/GLOBULIN RATIO 0.7 (1.0-2.7); ANION GAP 14 (5-15); ASPARTATE AMINO TRANSFERASE 15 U/L (5-40); CALCIUM 9.7 mg/dL (8.6-10.2); CARBON DIOXIDE 27 mEQ/L (20-30); CHLORIDE 103 mEQ/L (98-107); CREATININE 0.8 mg/dL (0.5-0.9); HEMOLYSIS 1; SODIUM 144 mEQ/L (135-145); TOTAL PROTEIN 8.8 g/dL (6.6-8.7)
[2017-01-17 08:11] VITALS: BP 131/76
[2017-01-17] MEDS ORDERED: Ertapenem 1 GM in NS 110 ML INJ SCH (09:00)
[2017-01-17] MEDS ORDERED: Ertapenem (INVanz) 1gm Inj IV SCH (09:00)
[2017-01-17] MEDS: Xarelto 10mg tab ORAL SCH (09:10)
[2017-01-17] MEDS: Memantine 10mg tab ORAL SCH ×2 (09:11→17:50)
[2017-01-17] MEDS: Cefepime HCl 2 GM in D5W 110 ML IV SCH ×2 (09:11→20:10)
--- NOTE | 2017-01-17 10:21 | Diagnostic Imaging Report ---
Indication: Left ankle pain Technique: XRAY ANKLE MIN 3VWS LEFT Comparison: None Findings: There is severe osteopenia limiting evaluation. There is no gross plain film evidence of displaced fracture or dislocation. Soft tissue swelling of the ankle is seen. Impression: Severe osteopenia limiting evaluation but no gross plain film evidence of displaced fracture or dislocation. CT or MRI may be obtained for more sensitive evaluation. Soft tissue swelling. Atherosclerotic changes.
--- NOTE | 2017-01-17 10:21 | Diagnostic Imaging Report ---
Indication: Chest pain Technique: XRAY CHEST 1 V Comparison: 08/29/16 Findings: Cardiac silhouette is prominent. Atherosclerotic changes are seen. There is a left chest pacemaker. Osseous structures are grossly stable. Impression: No obvious acute cardiopulmonary disease. Cardiomegaly and left chest pacemaker.
[2017-01-17 12:19] VITALS: BP 130/70
[2017-01-17] MEDS: Vancomycin 1 GM in D5W 275 ML IVPB SCH ×2 (12:26→22:21)
--- NOTE | 2017-01-17 14:03 | History & Physical ---
History and Physical History & Physicial Dictated for Int Med-Dr Echevarria Int med no. [id number]. CHEMA VÁZQUEZ Jan 17, 2017 14:03
[2017-01-17 16:11] VITALS: BP 107/63
[2017-01-17] MEDS ORDERED: Tubing IV Secondary IV ONE (16:18)
[2017-01-17] MEDS ORDERED: NS 275ml ONE (16:18)
[2017-01-17 20:00] VITALS: BP 109/77
--- NOTE | 2017-01-17 23:21 | Consultation ---
History of Present Illness General Date patient seen: Jan 17, 2017 Chief Complaint: Female Urogenital Problems Referring physician: Dr. Echevarria Reason for Consultation: inpatient management Present Illness HPI 76 year old female with COPD, DM, HTN. CVA, ирина cameron from SNF brought in by paramedics with CC of dysuria for a few days. No assoc fever/chills, abd pain, nausea/vomiting, chest pain, SOB. Pt is admitted for possible sepsis. Allergies: Coded Allergies: ERYTHROMYCIN BASE (Verified Allergy, Intermediate, 08/28/16) CODEINE (Verified Allergy, Unknown, 08/28/16) MEPERIDINE (Verified Allergy, Unknown, 08/28/16) PENICILLINS (Verified Allergy, Unknown, 08/28/16) Medication History Scheduled Atorvastatin Calcium* (Lipitor*), 10 MG ORAL BEDTIME, (Reported) Docusate Sodium* (Colace*), 100 MG ORAL EVERY 12 HOURS Ertapenem Sodium* (INVanz*), 1 GM IVPB Q24H Furosemide* (Lasix*), 40 MG ORAL DAILY Gabapentin* (Gabapentin*), 100 MG ORAL TID Gabapentin* (Gabapentin*), 300 MG ORAL BID, (Reported) Hydralazine HCl (Hydralazine HCl), 25 MG ORAL EVERY 6 HOURS, (Reported) Insulin Aspart (Novolog Flexpen), 0 UNITS SUBQ BEFORE MEALS AND HS Memantine Hcl* (Namenda*), 5 MG ORAL BID, (Reported) Metformin Hcl* (Metformin Hcl*), 500 MG ORAL TWICE A DAY, (Reported) Montelukast Sodium* (Montelukast Sodium*), 10 MG ORAL DAILY, (Reported) Pantoprazole* (Protonix*), 40 MG ORAL DAILY Potassium Chloride (Potassium Chloride), 10 MEQ ORAL DAILY Rivaroxaban (Xarelto*), 20 MG ORAL DAILY Spironolactone (Aldactone), 25 MG ORAL DAILY Verapamil Hcl* (Calan Sr*), 250 MG ORAL DAILY, (Reported) Scheduled PRN Acetaminophen* (Acetaminophen 325MG Tablet*), 650 MG ORAL Q4H PRN for Mild Pain / TEMP>101 Ibuprofen* (Motrin*), 200 MG ORAL Q4HR PRN for For Pain, (Reported) Miscellaneous Medications Ipratropium/Albuterol Sulfate (DuoNeb 0.5-3(2.5)mg/3ml), 3 ML HHN, (Reported) Unable to Obtain Medications (Unable To Obtain Meds), (Reported) Patient History Healthcare decision maker N Resuscitation status Full Code Advanced Directive on File Past Medical/Surgical History Past Medical/Surgical History: (1) Decubitus ulcer (2) DVT (deep venous thrombosis) (3) Hepatitis C (4) Pacemaker (5) Functional quadriplegia (6) Hypertension (7) Diabetes mellitus, type II (8) COPD (chronic obstructive pulmonary disease) Review of Systems All Other Systems: negative except mentioned in HPI Physical Exam General Appearance: WD/WN Lines, tubes and drains: peripheral HEENT: normocephalic, atraumatic Neck: non-tender, normal alignment Respiratory/Chest: chest wall non-tender, lungs clear Breasts: no masses Cardiovascular/Chest: normal peripheral pulses Abdomen: normal bowel sounds, soft Genitourinary/Rectal: normal genital exam, normal rectal exam Extremities: non-tender Last 24 Hour Vital Signs Date Time Temp Pulse Resp B/P (MAP) Pulse Ox O2 Delivery O2 Flow Rate FiO2 01/17/17 20:00 97.9 95 21 109/77 99 Nasal Cannula 2.0 01/17/17 17:50 110/69 01/17/17 16:11 98.2 97 20 107/63 97 Nasal Cannula 2.0 01/17/17 12:25 130/70 01/17/17 12:19 98.0 90 20 130/70 100 Nasal Cannula 2.0 01/17/17 09:00 100 16 Room Air 21 01/17/17 08:11 98.2 94 20 131/76 100 Nasal Cannula 2.0 01/17/17 06:00 131/81 01/17/17 04:00 97.6 91 21 131/81 94 Room Air 01/17/17 00:00 97.6 90 20 116/68 97 Room Air 01/17/17 00:00 115/78 Intake and Output 01/17/17 01/18/17 19:00 07:00 Intake Total 865.0 ml 110 ml Output Total 300 ml Balance 565.0 ml 110 ml Intake Oral 480 ml IV Total 385.0 ml 110 ml Output Urine Total 300 ml Laboratory Tests Test 01/17/17 05:00 01/17/17 06:00 Urine Color Yellow Urine Appearance Slightly cloudy Urine pH 7 (4.5-8.0) Urine Specific [place] 1.010 (1.005-1.035) Urine Protein 2+ (NEGATIVE) H Urine Glucose (UA) Negative (NEGATIVE) Urine Ketones Negative (NEGATIVE) Urine Occult Blood 5+ (NEGATIVE) H Urine Nitrite Positive (NEGATIVE) H Urine Bilirubin Negative (NEGATIVE) Urine Urobilinogen 1 MG/DL (0.0-1.0) H Urine Leukocyte Esterase 3+ (NEGATIVE) H Urine RBC 20-30 /HPF (0 - 2) H Urine WBC 30-40 /HPF (0 - 2) H Urine Squamous Epithelial Cells Few /LPF (NONE/OCC) Urine Bacteria Few /HPF (NONE) White Blood Count 5.9 K/UL (4.8-10.8) Red Blood Count 4.76 M/UL (4.20-5.40) Hemoglobin 12.6 G/DL (12.0-16.0) Hematocrit 39.8 % (37.0-47.0) Mean Corpuscular Volume 84 FL (80-99) Mean Corpuscular Hemoglobin 26.5 PG (27.0-31.0) L Mean Corpuscular Hemoglobin Concent 31.7 G/DL (32.0-36.0) L Red Cell Distribution Width 13.1 % (11.6-14.8) Platelet Count 188 K/UL (150-450) Mean Platelet Volume 8.6 FL (6.5-10.1) Neutrophils (%) (Auto) 44.2 % (45.0-75.0) L Lymphocytes (%) (Auto) 40.9 % (20.0-45.0) Monocytes (%) (Auto) 9.7 % (1.0-10.0) Eosinophils (%) (Auto) 4.0 % (0.0-3.0) H Basophils (%) (Auto) 1.2 % (0.0-2.0) Sodium Level 144 mEQ/L (135-145) Potassium Level 4.0 mEQ/L (3.4-4.9) Chloride Level 103 mEQ/L (98-107) Carbon Dioxide Level 27 mEQ/L (20-30) Anion Gap 14 (5-15) Blood Urea Nitrogen 18 mg/dL (7-23) Creatinine 0.8 mg/dL (0.5-0.9) Estimat Glomerular Filtration Rate mL/min (>60) Glucose Level 131 mg/dL (74-106) H Calcium Level 9.7 mg/dL (8.6-10.2) Total Bilirubin 0.7 mg/dL (0.0-1.2) Aspartate Amino Transf (AST/SGOT) 15 U/L (5-40) Alanine Aminotransferase (ALT/SGPT) 14 U/L (3-33) Alkaline Phosphatase 105 U/L (35-104) H Total Protein 8.8 g/dL (6.6-8.7) H Albumin 3.8 g/dL (3.5-5.2) Globulin 5.0 g/dL Albumin/Globulin Ratio 0.7 (1.0-2.7) L Height (Feet): 5 Height (Inches): 6.00 Weight (Pounds): 230 Medications Current Medications Medications (Trade) Dose Ordered Sig/Joann Route PRN Reason Start Time Stop Time Status Last Admin Dose Admin Acetaminophen (Tylenol) 650 mg Q4H PRN ORAL fever 01/16/17 21:30 02/15/17 21:29 Albuterol/ Ipratropium (DuoNeb 0.5-3(2.5)mg/3ml) 3 ml EVERY 4 HOURS PRN HHN Shortness of Breath 01/16/17 21:30 01/21/17 21:29 Atorvastatin Calcium (Lipitor) 10 mg BEDTIME ORAL 01/17/17 21:00 02/16/17 20:59 01/17/17 20:10 Cefepime HCl 2 gm/ Dextrose 110 ml @ 220 mls/hr EVERY 12 HOURS IV 01/17/17 09:00 01/24/17 08:59 01/17/17 20:10 Dextrose (Dextrose 50%) STAT PRN IV Hypoglycemia 01/16/17 21:30 02/15/17 21:29 Diphenhydramine HCl (Benadryl) 25 mg Q6H PRN IVP Itching 01/16/17 23:00 02/15/17 22:59 Gabapentin (Neurontin) 100 mg TID ORAL 01/17/17 09:00 02/16/17 08:59 01/17/17 17:50 Hydralazine HCl (Apresoline) 25 mg EVERY 6 HOURS ORAL 01/17/17 00:00 02/16/17 00:00 01/17/17 12:25 Insulin Aspart (NovoLOG) BEFORE MEALS AND HS SUBQ 01/17/17 06:30 02/16/17 06:29 01/17/17 20:15 Memantine (Namenda) 5 mg BID ORAL 01/17/17 09:00 02/16/17 08:59 01/17/17 17:50 Nitroglycerin (Ntg) 0.4 mg q5 mins PRN SL Prn Chest Pain 01/16/17 21:30 02/15/17 21:29 Ondansetron HCl (Zofran) 4 mg Q6H PRN IVP Nausea & Vomiting 01/16/17 21:30 02/15/17 21:29 Pantoprazole (Protonix) 40 mg DAILY ORAL 01/17/17 09:00 02/16/17 08:59 01/17/17 09:10 Polyethylene Glycol (Miralax) 17 gm DAILYPRN PRN ORAL Constipation 01/16/17 21:30 02/15/17 21:29 Rivaroxaban (Xarelto) 20 mg DAILY ORAL 01/17/17 09:00 02/16/17 08:59 01/17/17 09:10 Temazepam (Restoril) 15 mg HSPRN PRN ORAL Insomnia 01/16/17 21:30 01/23/17 21:29 Vancomycin HCl 1 gm/Dextrose 275 ml @ 183.3 mls/ hr Q12H IVPB 01/16/17 23:00 01/21/17 22:59 01/17/17 22:21 Assessment/Plan Problem List: (1) Sepsis ICD Codes: A41.9 - Sepsis, unspecified organism SNOMED: 67725285 (2) UTI (urinary tract infection) ICD Codes: N39.0 - Urinary tract infection, site not specified SNOMED: 19216915 Qualifiers: Qualified Codes: N30.01 - Acute cystitis with hematuria (3) Pacemaker ICD Codes: Z95.0 - Presence of cardiac pacemaker SNOMED: 513841332 (4) Closed left ankle fracture ICD Codes: S82.892A - Other fracture of left lower leg, initial encounter for closed fracture SNOMED: 88390759 Qualifiers: Qualified Codes: S82.892D - Other fracture of left lower leg, subsequent encounter for closed fracture with routine healing (5) Hepatitis C ICD Codes: B19.20 - Unspecified viral hepatitis C without hepatic coma SNOMED: 04067682 Assessment/Plan check cultures IV abx symptomatic treatment dvt prophylaxis respiratory treatment JONH RODRIGUEZ Jan 17, 2017 23:21
[2017-01-18] VITALS (7 sets, daily range): BP systolic 109–127; BP diastolic 67–75
--- NOTE | 2017-01-18 00:15 | History and Physical Report ---
DATE OF ADMISSION: 01/16/2017 Chief Complaint: The patient is a 76-year-old female, who presents with chief complaint of burning on urination for two to three days. History Of Present Illness: Three to four days prior to admission, the patient began to have burning on urination. The patient denies fevers or chills. The patient was evaluated at [facility]. The patient was found to have urinary tract infection. The patient is admitted for dysuria and urinary tract infection to rule out pyelonephritis. Review Of Systems: Constitutional: The patient denies weight loss or weight gain. The patient denies fevers or chills. HEENT: The patient denies ear or throat pain. The patient denies headache. Cardiovascular: The patient denies palpitations or chest pain. Abdomen: The patient denies nausea, vomiting, diarrhea, or constipation. Genitourinary: The patient complains of dysuria as above. The patient denies hematuria. Neuromuscular: The patient denies seizures or generalized weakness. PAST MEDICAL HISTORY: Significant for: 1. Sick sinus syndrome. 2. Hypercholesterolemia. 3. Hypertension. 4. Chronic obstructive pulmonary disease. 5. Dysphagia. 6. Diabetes type 2. 7. History of right ankle fracture. 8. History of left ankle fracture. Past Surgical History: Significant for pacemaker implantation in the left chest wall. CURRENT MEDICATION: 1. Tylenol 650 mg p.o. q.4 h. p.r.n. 2. Lipitor 10 mg one tablet p.o. nightly. 3. Lasix 40 mg one tablet p.o. daily. 4. Gabapentin 100 mg one tablet p.o. three times daily. 5. Hydralazine 25 mg p.o. q.6 h. 6. Ibuprofen 600 mg one tablet p.o. q.6 h. p.r.n. 7. NovoLog sliding scale. 8. Namenda 5 mg one tablet p.o. twice daily. 9. Metformin 500 mg one tablet p.o. twice daily. 10. Singulair 10 mg one tablet p.o. nightly. 11. Protonix 40 mg one tablet p.o. daily. 12. Potassium chloride 10 mEq p.o. daily. 13. Xarelto 20 mg one tablet p.o. daily. 14. Spironolactone 25 mg one tablet p.o. daily. 15. Calan SR 240 mg one tablet p.o. daily. ALLERGIES: 1. Codeine. 2. Erythromycin. 3. Demerol. 4. Penicillin. Social History: The patient is . The patient denies tobacco or alcohol use. PHYSICAL EXAMINATION: Vital Signs: Temperature 97.6 degrees, respirations 20, pulse 91, blood pressure 131/81. General: The patient is well nourished, slightly obese, female, in no apparent distress. HEENT: Eyes, pupils equal and responsive to light and accommodation. Extraocular movements are intact. NECK: Supple without lymphadenopathy. Chest: Lungs are clear to auscultation bilaterally without wheezes or rales. Cardiovascular: Regular rate. S1, S2 normal without murmurs, rubs, or gallops. Abdomen: Soft, nontender, nondistended. Positive bowel sounds. No evidence of hepatosplenomegaly. Currently, no rebound or guarding noted. EXTREMITIES: Negative for clubbing, cyanosis, or edema. RECTAL: Refused. GENITALIA: Refused. Neurologic: Cranial nerves II to XII are grossly intact without focal deficits. Motor strength is 5/5 bilaterally. Deep tendon reflexes are 2+ plantar. Laboratory Studies: WBC 6.7, hemoglobin 12.9, hematocrit 43.2 platelets 185,000. Sodium 142, potassium 3.7, chloride 103, CO2 25, BUN 18, creatinine 0.7, glucose 122. Urinalysis showed 3+ protein, 5+ occult blood, nitrite positive with 30 to 40 RBCs and WBCs too numerous to count. A urine culture is pending. ASSESSMENT: This is a 76-year-old female. 1. Urinary tract infection. 2. Sick sinus syndrome. 3. Diabetes type 2. 4. Hypertension. 5. Chronic obstructive pulmonary disease. 6. History of dysphagia. 7. Obesity. TREATMENT: 1. Urinary tract infection/dysuria. The patient has been started empirically on vancomycin and cefepime. Urine culture is pending. Await culture and sensitivity as above. 2. Sick sinus syndrome. The patient is status post pacemaker implantation. 3. Diabetes type 2. The patient has been placed on a NovoLog sliding scale. 4. Hypertension. Continue hydralazine as above. 5. Chronic obstructive pulmonary disease, stable. 6. Dysphagia. 7. Obesity. Wilder Ludmila Colin DR: Tong JOB#: [id number] CC:
[2017-01-18] MEDS: HydrALAZINE 10mg Tab ORAL SCH ×3 (05:09→17:45)
[2017-01-18] MEDS: NovoLOG Insulin Flexpen SUBQ SCH ×4 (06:29→21:17)
[2017-01-18 07:48] LABS: BASOPHILS % (AUTO) 1.9 % (0.0-2.0); EOSINOPHILS % (AUTO) 5.9 % (0.0-3.0); MEAN CORPUSCULAR HEMOGLOBIN 27.2 PG (27.0-31.0); MEAN CORPUSCULAR HGB CONC 32.4 G/DL (32.0-36.0); MEAN CORPUSCULAR VOLUME 84 FL (80-99); MEAN PLATELET VOLUME 8.5 FL (6.5-10.1); MONOCYTES % (AUTO) 10.5 % (1.0-10.0); NEUTROPHILS % (AUTO) 41.7 % (45.0-75.0); PLATELET COUNT 188 K/UL (150-450); RED CELL DISTRIBUTION WIDTH 13.3 % (11.6-14.8); WHITE BLOOD COUNT 5.6 K/UL (4.8-10.8)
[2017-01-18] MEDS: Cefepime HCl 2 GM in D5W 110 ML IV SCH ×2 (08:09→21:09)
[2017-01-18] MEDS: Xarelto 10mg tab ORAL SCH (08:10)
[2017-01-18] MEDS: Memantine 10mg tab ORAL SCH ×2 (08:10→17:43)
[2017-01-18 08:11] LABS: ANION GAP 13 (5-15); CALCIUM 9.1 mg/dL (8.6-10.2); CARBON DIOXIDE 26 mEQ/L (20-30); CHLORIDE 104 mEQ/L (98-107); CREATININE 0.7 mg/dL (0.5-0.9); HEMOLYSIS 0; POTASSIUM 4.2 mEQ/L (3.4-4.9); SODIUM 143 mEQ/L (135-145)
[2017-01-18] MEDS ORDERED: Vancomycin 750mg/NS 250ml IVPB SCH (12:00)
--- NOTE | 2017-01-18 13:14 | Infectious Diseases Prog Note ---
Assessment/Plan Assessment/Plan ID consult dictated # [id number] Subjective Allergies: Coded Allergies: ERYTHROMYCIN BASE (Verified Allergy, Intermediate, 08/28/16) CODEINE (Verified Allergy, Unknown, 08/28/16) MEPERIDINE (Verified Allergy, Unknown, 08/28/16) PENICILLINS (Verified Allergy, Unknown, 08/28/16) Objective Vital Signs Last 24 Hour Vital Signs Date Time Temp Pulse Resp B/P (MAP) Pulse Ox O2 Delivery O2 Flow Rate FiO2 01/18/17 12:00 119/74 01/18/17 12:00 97.3 88 20 119/74 100 Nasal Cannula 2.0 01/18/17 10:08 91 20 Room Air 21 01/18/17 08:08 96.8 91 15 109/68 98 Room Air 01/18/17 08:00 96.8 91 20 109/68 98 Nasal Cannula 2.0 01/18/17 05:09 112/67 01/18/17 04:06 97.7 86 20 112/67 99 Room Air 01/18/17 00:50 98.1 01/18/17 00:00 98.1 91 20 127/75 98 Room Air 01/17/17 23:49 110/60 01/17/17 22:29 90 20 Room Air 01/17/17 20:00 97.9 95 21 109/77 99 Nasal Cannula 2.0 01/17/17 17:50 110/69 01/17/17 16:11 98.2 97 20 107/63 97 Nasal Cannula 2.0 Height (Feet): 5 Height (Inches): 6.00 Weight (Pounds): 230 Microbiology Date/Time Source Procedure Growth Status 01/16/17 19:15 Blood Blood Culture - Preliminary NO GROWTH AFTER 24 HOURS Resulted 01/16/17 19:00 Blood Blood Culture - Preliminary NO GROWTH AFTER 24 HOURS Resulted 01/17/17 05:00 Urine,Clean Catch Urine Culture - Preliminary Resulted 01/16/17 19:40 Urine,Clean Catch Urine Culture - Preliminary Gram Negative Bacillus 1 Resulted Laboratory Tests Test 01/18/17 05:10 01/18/17 09:45 White Blood Count 5.6 K/UL (4.8-10.8) Red Blood Count 4.30 M/UL (4.20-5.40) Hemoglobin 11.7 G/DL (12.0-16.0) L Hematocrit 36.0 % (37.0-47.0) L Mean Corpuscular Volume 84 FL (80-99) Mean Corpuscular Hemoglobin 27.2 PG (27.0-31.0) Mean Corpuscular Hemoglobin Concent 32.4 G/DL (32.0-36.0) Red Cell Distribution Width 13.3 % (11.6-14.8) Platelet Count 188 K/UL (150-450) Mean Platelet Volume 8.5 FL (6.5-10.1) Neutrophils (%) (Auto) 41.7 % (45.0-75.0) L Lymphocytes (%) (Auto) 40.0 % (20.0-45.0) Monocytes (%) (Auto) 10.5 % (1.0-10.0) H Eosinophils (%) (Auto) 5.9 % (0.0-3.0) H Basophils (%) (Auto) 1.9 % (0.0-2.0) Sodium Level 143 mEQ/L (135-145) Potassium Level 4.2 mEQ/L (3.4-4.9) Chloride Level 104 mEQ/L (98-107) Carbon Dioxide Level 26 mEQ/L (20-30) Anion Gap 13 (5-15) Blood Urea Nitrogen 13 mg/dL (7-23) Creatinine 0.7 mg/dL (0.5-0.9) Estimat Glomerular Filtration Rate mL/min (>60) Glucose Level 104 mg/dL (74-106) Calcium Level 9.1 mg/dL (8.6-10.2) Vancomycin Level Trough 16.3 ug/mL (5.0-12.0) H Current Medications Medications (Trade) Dose Ordered Sig/Joann Route PRN Reason Start Time Stop Time Status Last Admin Dose Admin Acetaminophen (Tylenol) 650 mg Q4H PRN ORAL fever 01/16/17 21:30 02/15/17 21:29 01/17/17 23:48 Albuterol/ Ipratropium (DuoNeb 0.5-3(2.5)mg/3ml) 3 ml EVERY 4 HOURS PRN HHN Shortness of Breath 01/16/17 21:30 01/21/17 21:29 Atorvastatin Calcium (Lipitor) 10 mg BEDTIME ORAL 01/17/17 21:00 02/16/17 20:59 01/17/17 20:10 Cefepime HCl 2 gm/ Dextrose 110 ml @ 220 mls/hr EVERY 12 HOURS IV 01/17/17 09:00 01/24/17 08:59 01/18/17 08:09 Dextrose (Dextrose 50%) STAT PRN IV Hypoglycemia 01/16/17 21:30 02/15/17 21:29 Diphenhydramine HCl (Benadryl) 25 mg Q6H PRN IVP Itching 01/16/17 23:00 02/15/17 22:59 Gabapentin (Neurontin) 100 mg TID ORAL 01/17/17 09:00 02/16/17 08:59 01/18/17 12:19 Hydralazine HCl (Apresoline) 25 mg EVERY 6 HOURS ORAL 01/17/17 00:00 02/16/17 00:00 01/17/17 12:25 Insulin Aspart (NovoLOG) BEFORE MEALS AND HS SUBQ 01/17/17 06:30 02/16/17 06:29 01/18/17 12:21 Memantine (Namenda) 5 mg BID ORAL 01/17/17 09:00 02/16/17 08:59 01/18/17 08:10 Nitroglycerin (Ntg) 0.4 mg q5 mins PRN SL Prn Chest Pain 01/16/17 21:30 02/15/17 21:29 Ondansetron HCl (Zofran) 4 mg Q6H PRN IVP Nausea & Vomiting 01/16/17 21:30 02/15/17 21:29 Pantoprazole (Protonix) 40 mg DAILY ORAL 01/17/17 09:00 02/16/17 08:59 01/18/17 08:10 Polyethylene Glycol (Miralax) 17 gm DAILYPRN PRN ORAL Constipation 01/16/17 21:30 02/15/17 21:29 Rivaroxaban (Xarelto) 20 mg DAILY ORAL 01/17/17 09:00 02/16/17 08:59 01/18/17 08:10 Temazepam (Restoril) 15 mg HSPRN PRN ORAL Insomnia 01/16/17 21:30 01/23/17 21:29 JUAQUIN PATTON Jan 18, 2017 13:14
--- NOTE | 2017-01-18 14:58 | Internal Med Progress Note ---
Subjective Date of Service: Jan 18, 2017 Physician Name Chema Vázquez Attending Physician Zion Echevarria MD Current Medications Medications (Trade) Dose Ordered Sig/Joann Route PRN Reason Start Time Stop Time Status Last Admin Dose Admin Acetaminophen (Tylenol) 650 mg Q4H PRN ORAL fever 01/16/17 21:30 02/15/17 21:29 01/17/17 23:48 Albuterol/ Ipratropium (DuoNeb 0.5-3(2.5)mg/3ml) 3 ml EVERY 4 HOURS PRN HHN Shortness of Breath 01/16/17 21:30 01/21/17 21:29 Atorvastatin Calcium (Lipitor) 10 mg BEDTIME ORAL 01/17/17 21:00 02/16/17 20:59 01/17/17 20:10 Cefepime HCl 2 gm/ Dextrose 110 ml @ 220 mls/hr EVERY 12 HOURS IV 01/17/17 09:00 01/24/17 08:59 01/18/17 08:09 Dextrose (Dextrose 50%) STAT PRN IV Hypoglycemia 01/16/17 21:30 02/15/17 21:29 Diphenhydramine HCl (Benadryl) 25 mg Q6H PRN IVP Itching 01/16/17 23:00 02/15/17 22:59 Gabapentin (Neurontin) 100 mg TID ORAL 01/17/17 09:00 02/16/17 08:59 01/18/17 12:19 Hydralazine HCl (Apresoline) 25 mg EVERY 6 HOURS ORAL 01/17/17 00:00 02/16/17 00:00 01/17/17 12:25 Insulin Aspart (NovoLOG) BEFORE MEALS AND HS SUBQ 01/17/17 06:30 02/16/17 06:29 01/18/17 12:21 Memantine (Namenda) 5 mg BID ORAL 01/17/17 09:00 02/16/17 08:59 01/18/17 08:10 Nitroglycerin (Ntg) 0.4 mg q5 mins PRN SL Prn Chest Pain 01/16/17 21:30 02/15/17 21:29 Ondansetron HCl (Zofran) 4 mg Q6H PRN IVP Nausea & Vomiting 01/16/17 21:30 02/15/17 21:29 Pantoprazole (Protonix) 40 mg DAILY ORAL 01/17/17 09:00 02/16/17 08:59 01/18/17 08:10 Polyethylene Glycol (Miralax) 17 gm DAILYPRN PRN ORAL Constipation 01/16/17 21:30 02/15/17 21:29 Rivaroxaban (Xarelto) 20 mg DAILY ORAL 01/17/17 09:00 02/16/17 08:59 01/18/17 08:10 Temazepam (Restoril) 15 mg HSPRN PRN ORAL Insomnia 01/16/17 21:30 01/23/17 21:29 Allergies: Coded Allergies: ERYTHROMYCIN BASE (Verified Allergy, Intermediate, 08/28/16) CODEINE (Verified Allergy, Unknown, 08/28/16) MEPERIDINE (Verified Allergy, Unknown, 08/28/16) PENICILLINS (Verified Allergy, Unknown, 08/28/16) ROS Limited/Unobtainable: No Constitutional: Reports: no symptoms HEENT: Reports: no symptoms Cardiovascular: Reports: no symptoms Respiratory: Reports: no symptoms Gastrointestinal/Abdominal: Reports: no symptoms Genitourinary: Reports: burning Neurologic/Psychiatric: Reports: no symptoms Subjective 76 YO F admitted with dysuria. Cover for Int Ryan-Dr Echevarria. Objective Last Vital Signs Date Time Temp Pulse Resp B/P (MAP) Pulse Ox O2 Delivery O2 Flow Rate FiO2 01/18/17 12:00 119/74 01/18/17 12:00 97.3 88 20 100 Nasal Cannula 2.0 01/18/17 10:08 21 General Appearance: WD/WN, no apparent distress, alert, obese EENT: PERRL/EOMI, normal ENT inspection Neck: non-tender, normal alignment, supple, normal inspection Cardiovascular: normal peripheral pulses, normal rate, regular rhythm, no gallop/murmur, no JVD Respiratory/Chest: chest wall non-tender, lungs clear, normal breath sounds, no respiratory distress, no accessory muscle use Abdomen: normal bowel sounds, non tender, soft, no organomegaly, no mass Extremities: normal range of motion 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 Skin: normal pigmentation, warm/dry Laboratory Tests Test 01/18/17 05:10 01/18/17 09:45 White Blood Count 5.6 K/UL (4.8-10.8) Red Blood Count 4.30 M/UL (4.20-5.40) Hemoglobin 11.7 G/DL (12.0-16.0) L Hematocrit 36.0 % (37.0-47.0) L Mean Corpuscular Volume 84 FL (80-99) Mean Corpuscular Hemoglobin 27.2 PG (27.0-31.0) Mean Corpuscular Hemoglobin Concent 32.4 G/DL (32.0-36.0) Red Cell Distribution Width 13.3 % (11.6-14.8) Platelet Count 188 K/UL (150-450) Mean Platelet Volume 8.5 FL (6.5-10.1) Neutrophils (%) (Auto) 41.7 % (45.0-75.0) L Lymphocytes (%) (Auto) 40.0 % (20.0-45.0) Monocytes (%) (Auto) 10.5 % (1.0-10.0) H Eosinophils (%) (Auto) 5.9 % (0.0-3.0) H Basophils (%) (Auto) 1.9 % (0.0-2.0) Sodium Level 143 mEQ/L (135-145) Potassium Level 4.2 mEQ/L (3.4-4.9) Chloride Level 104 mEQ/L (98-107) Carbon Dioxide Level 26 mEQ/L (20-30) Anion Gap 13 (5-15) Blood Urea Nitrogen 13 mg/dL (7-23) Creatinine 0.7 mg/dL (0.5-0.9) Estimat Glomerular Filtration Rate mL/min (>60) Glucose Level 104 mg/dL (74-106) Calcium Level 9.1 mg/dL (8.6-10.2) Vancomycin Level Trough 16.3 ug/mL (5.0-12.0) H Microbiology Date/Time Source Procedure Growth Status 01/16/17 19:15 Blood Blood Culture - Preliminary NO GROWTH AFTER 24 HOURS Resulted 01/16/17 19:00 Blood Blood Culture - Preliminary NO GROWTH AFTER 24 HOURS Resulted 01/17/17 05:00 Urine,Clean Catch Urine Culture - Preliminary Resulted 01/16/17 19:40 Urine,Clean Catch Urine Culture - Preliminary Gram Negative Bacillus 1 Resulted Intake and Output 10/8/17 10/9/17 19:00 07:00 Intake Total 110 ml Balance 110 ml IV Total 110 ml Assessment/Plan Problem List: (1) UTI (urinary tract infection) Assessment & Plan: Gram neg eloise. Await ID and sensitivity. Continue vanco and cefepime for now. (2) Dysuria (3) Sick sinus syndrome Assessment & Plan: S/P pacemaker (4) Pacemaker (5) Diabetes mellitus, type II Assessment & Plan: Continue novolog sliding scale. (6) Hypertension (7) Dysphagia (8) COPD (chronic obstructive pulmonary disease) Assessment & Plan: See pulmonary note. Status: not improved CHEMA VÁZQUEZ Jan 18, 2017 14:58
[2017-01-18] MEDS ORDERED: NS 275ml ONE (15:45)
[2017-01-18] MEDS ORDERED: Tubing IV Secondary IV ONE (15:45)
--- NOTE | 2017-01-18 22:53 | Pulmonology Progress Note ---
Assessment/Plan Problems: (1) Sepsis (2) Pacemaker (3) Hypertension (4) Diabetes mellitus, type II Assessment/Plan improving continue abx check cultures symptomatic treatment dvt prophylaxis Subjective ROS Limited/Unobtainable: No Constitutional: Reports: no symptoms HEENT: Repors: no symptoms Respiratory: Reports: no symptoms Allergies: Coded Allergies: ERYTHROMYCIN BASE (Verified Allergy, Intermediate, 08/28/16) CODEINE (Verified Allergy, Unknown, 08/28/16) MEPERIDINE (Verified Allergy, Unknown, 08/28/16) PENICILLINS (Verified Allergy, Unknown, 08/28/16) Objective Last 24 Hour Vital Signs Date Time Temp Pulse Resp B/P (MAP) Pulse Ox O2 Delivery O2 Flow Rate FiO2 01/18/17 20:00 97.6 80 20 111/70 100 Nasal Cannula 2.0 01/18/17 19:21 87 20 Room Air 21 01/18/17 17:45 121/71 01/18/17 16:00 98.2 97 20 121/71 99 Nasal Cannula 2.0 01/18/17 12:00 119/74 01/18/17 12:00 97.3 88 20 119/74 100 Nasal Cannula 2.0 01/18/17 10:08 91 20 Room Air 21 01/18/17 08:08 96.8 91 15 109/68 98 Room Air 01/18/17 08:00 96.8 91 20 109/68 98 Nasal Cannula 2.0 01/18/17 05:09 112/67 01/18/17 04:06 97.7 86 20 112/67 99 Room Air 01/18/17 00:50 98.1 01/18/17 00:00 98.1 91 20 127/75 98 Room Air 01/17/17 23:49 110/60 Intake and Output 01/18/17 01/19/17 19:00 07:00 Intake Total 250 ml Balance 250 ml Intake Oral 140 ml IV Total 110 ml # Voids 5 General Appearance: WD/WN HEENT: normocephalic, atraumatic Respiratory/Chest: chest wall non-tender, lungs clear Breasts: no masses Cardiovascular: normal peripheral pulses, normal rate Abdomen: normal bowel sounds, no organomegaly Extremities: no cyanosis Skin: no rash 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 Lymphatic: no neck adenopathy, no groin adenopathy Microbiology Date/Time Source Procedure Growth Status 01/16/17 19:15 Blood Blood Culture - Preliminary NO GROWTH AFTER 24 HOURS Resulted 01/16/17 19:00 Blood Blood Culture - Preliminary NO GROWTH AFTER 24 HOURS Resulted 01/17/17 05:00 Urine,Clean Catch Urine Culture - Preliminary Resulted 01/16/17 19:40 Urine,Clean Catch Urine Culture - Preliminary Gram Negative Bacillus 1 Resulted Laboratory Tests 01/18/17 05:10: White Blood Count 5.6, Red Blood Count 4.30, Hemoglobin 11.7L, Hematocrit 36.0L , Mean Corpuscular Volume 84, Mean Corpuscular Hemoglobin 27.2, Mean Corpuscular Hemoglobin Concent 32.4, Red Cell Distribution Width 13.3, Platelet Count 188, Mean Platelet Volume 8.5, Neutrophils (%) (Auto) 41.7L, Lymphocytes ( %) (Auto) 40.0, Monocytes (%) (Auto) 10.5H, Eosinophils (%) (Auto) 5.9H, Basophils (%) (Auto) 1.9, Sodium Level 143, Potassium Level 4.2, Chloride Level 104, Carbon Dioxide Level 26, Anion Gap 13, Blood Urea Nitrogen 13, Creatinine 0.7, Estimat Glomerular Filtration Rate , Glucose Level 104, Calcium Level 9.1 01/18/17 09:45: Vancomycin Level Trough 16.3H Current Medications Medications (Trade) Dose Ordered Sig/Joann Route PRN Reason Start Time Stop Time Status Last Admin Dose Admin Acetaminophen (Tylenol) 650 mg Q4H PRN ORAL fever 01/16/17 21:30 02/15/17 21:29 01/17/17 23:48 Albuterol/ Ipratropium (DuoNeb 0.5-3(2.5)mg/3ml) 3 ml EVERY 4 HOURS PRN HHN Shortness of Breath 01/16/17 21:30 01/21/17 21:29 Atorvastatin Calcium (Lipitor) 10 mg BEDTIME ORAL 01/17/17 21:00 02/16/17 20:59 01/18/17 21:09 Cefepime HCl 2 gm/ Dextrose 110 ml @ 220 mls/hr EVERY 12 HOURS IV 01/17/17 09:00 01/24/17 08:59 01/18/17 21:09 Dextrose (Dextrose 50%) STAT PRN IV Hypoglycemia 01/16/17 21:30 02/15/17 21:29 Diphenhydramine HCl (Benadryl) 25 mg Q6H PRN IVP Itching 01/16/17 23:00 02/15/17 22:59 Gabapentin (Neurontin) 100 mg TID ORAL 01/17/17 09:00 02/16/17 08:59 01/18/17 17:43 Hydralazine HCl (Apresoline) 25 mg EVERY 6 HOURS ORAL 01/17/17 00:00 02/16/17 00:00 01/17/17 12:25 Insulin Aspart (NovoLOG) BEFORE MEALS AND HS SUBQ 01/17/17 06:30 02/16/17 06:29 01/18/17 21:17 Memantine (Namenda) 5 mg BID ORAL 01/17/17 09:00 02/16/17 08:59 01/18/17 17:43 Nitroglycerin (Ntg) 0.4 mg q5 mins PRN SL Prn Chest Pain 01/16/17 21:30 02/15/17 21:29 Ondansetron HCl (Zofran) 4 mg Q6H PRN IVP Nausea & Vomiting 01/16/17 21:30 02/15/17 21:29 Pantoprazole (Protonix) 40 mg DAILY ORAL 01/17/17 09:00 02/16/17 08:59 01/18/17 08:10 Polyethylene Glycol (Miralax) 17 gm DAILYPRN PRN ORAL Constipation 01/16/17 21:30 02/15/17 21:29 Rivaroxaban (Xarelto) 20 mg DAILY ORAL 01/17/17 09:00 02/16/17 08:59 01/18/17 08:10 Temazepam (Restoril) 15 mg HSPRN PRN ORAL Insomnia 01/16/17 21:30 01/23/17 21:29 JONH RODRIGUEZ Jan 18, 2017 22:53
[2017-01-19] VITALS: BP 129/63
[2017-01-19 04:00] VITALS: BP 121/72
--- NOTE | 2017-01-19 04:30 | Consultation ---
DATE OF CONSULTATION: 01/18/2017 INFECTIOUS DISEASES CONSULTATION This consult is for coverage of Dr. Chaney. PRIMARY ATTENDING: Zion Echevarria M.D. REASON FOR CONSULT: UTI. HISTORY OF PRESENT ILLNESS: A 76-year-old female admitted on 01/16/2017 from a snf facility because of dysuria for two days before admission. PAST MEDICAL HISTORY: Significant for COPD, diabetes type 2, dementia, hypertension, and ankle fracture. MEDICATIONS: Getting vancomycin, atorvastatin, gabapentin, Namenda, Protonix, cefepime, Xarelto, insulin, DuoNeb inhaler, Tylenol, MiraLax, and temazepam. ALLERGIES: Allergic to codeine, erythromycin, meperidine, and penicillin. SOCIAL HISTORY: [facility] resident. No history of alcohol, drug abuse, or smoking. REVIEW OF SYSTEMS: Pain in the right lower extremity. The urinary symptoms of the dysuria and frequency is resolved. Denies any fever. PHYSICAL EXAMINATION: VITAL SIGNS: Temperature 97.3 degrees, pulse 88, and blood pressure is 119/74. GENERAL APPEARANCE: No acute distress. HEAD AND NECK: Blanca conjunctiva. No oral lesion. HEART: S1 and S2 regular. There is a pacemaker in the left side chest wall. LUNGS: Clear. ABDOMEN: Soft and nontender. EXTREMITIES: She has edema, right lower extremity. NEUROLOGIC: She is awake, alert, verbal. LABORATORY AND DIAGNOSTIC DATA: Sodium 143, potassium 4.2, chloride 104, bicarbonate 26, BUN 13, creatinine 0.7, glucose 104. Alkaline phosphatase slightly elevated 105. WBC 5.6, hemoglobin 11.7, hematocrit 36, platelet is 188,000. Blood cultures x2 are negative. Urine culture growing gram-negative bacillus. IMPRESSION: 1. Symptomatic urinary tract infection with gram-negative rods. 2. The patient has diabetes mellitus type 2. 3. Dementia. 4. Hypertension. 5. Chronic obstructive pulmonary disease. RECOMMENDATION: We will continue with cefepime. We will discontinue IV Vancomycin. We will follow up the cultures. At the end of my exam, I thank, Dr. Echevarria, for involving me in the care of this patient. Toni Ventura M.D. DR: Vasquez JOB#: [id number] CC:
[2017-01-19] MEDS: HydrALAZINE 10mg Tab ORAL SCH ×4 (05:27→18:00)
[2017-01-19] MEDS: NovoLOG Insulin Flexpen SUBQ SCH ×4 (06:46→21:25)
[2017-01-19 06:48] LABS: BASOPHILS % (AUTO) 1.3 % (0.0-2.0); EOSINOPHILS % (AUTO) 6.4 % (0.0-3.0); MEAN CORPUSCULAR HEMOGLOBIN 27.3 PG (27.0-31.0); MEAN CORPUSCULAR HGB CONC 32.7 G/DL (32.0-36.0); MEAN CORPUSCULAR VOLUME 84 FL (80-99); MEAN PLATELET VOLUME 8.4 FL (6.5-10.1); MONOCYTES % (AUTO) 8.6 % (1.0-10.0); NEUTROPHILS % (AUTO) 38.8 % (45.0-75.0); PLATELET COUNT 181 K/UL (150-450); RED BLOOD COUNT 4.22 M/UL (4.20-5.40); RED CELL DISTRIBUTION WIDTH 13.2 % (11.6-14.8); WHITE BLOOD COUNT 5.1 K/UL (4.8-10.8)
[2017-01-19 07:05] LABS: ANION GAP 7 (5-15); CARBON DIOXIDE 27 MMOL/L (21-32); CHLORIDE 103 MMOL/L (98-107); CREATININE 0.7 MG/DL (0.55-1.30); POTASSIUM 3.8 MMOL/L (3.5-5.1); SODIUM 137 MMOL/L (136-145)
[2017-01-19 08:00] VITALS: BP 116/66
[2017-01-19] MEDS: Cefepime HCl 2 GM in D5W 110 ML IV SCH (08:04)
[2017-01-19] MEDS: Memantine 10mg tab ORAL SCH ×2 (08:04→17:52)
[2017-01-19] MEDS: Xarelto 10mg tab ORAL SCH (08:04)
--- NOTE | 2017-01-19 11:46 | Internal Med Progress Note ---
Subjective Date of Service: Jan 19, 2017 Physician Name Chema Vázquez Attending Physician Zion Echevarria MD Current Medications Medications (Trade) Dose Ordered Sig/Joann Route PRN Reason Start Time Stop Time Status Last Admin Dose Admin Acetaminophen (Tylenol) 650 mg Q4H PRN ORAL fever 01/16/17 21:30 02/15/17 21:29 01/17/17 23:48 Albuterol/ Ipratropium (DuoNeb 0.5-3(2.5)mg/3ml) 3 ml EVERY 4 HOURS PRN HHN Shortness of Breath 01/16/17 21:30 01/21/17 21:29 Atorvastatin Calcium (Lipitor) 10 mg BEDTIME ORAL 01/17/17 21:00 02/16/17 20:59 01/18/17 21:09 Cefepime HCl 2 gm/ Dextrose 110 ml @ 220 mls/hr EVERY 12 HOURS IV 01/17/17 09:00 01/24/17 08:59 01/19/17 08:04 Dextrose (Dextrose 50%) STAT PRN IV Hypoglycemia 01/16/17 21:30 02/15/17 21:29 Diphenhydramine HCl (Benadryl) 25 mg Q6H PRN IVP Itching 01/16/17 23:00 02/15/17 22:59 Gabapentin (Neurontin) 100 mg TID ORAL 01/17/17 09:00 02/16/17 08:59 01/19/17 08:04 Hydralazine HCl (Apresoline) 25 mg EVERY 6 HOURS ORAL 01/17/17 00:00 02/16/17 00:00 01/17/17 12:25 Insulin Aspart (NovoLOG) BEFORE MEALS AND HS SUBQ 01/17/17 06:30 02/16/17 06:29 01/19/17 06:46 Memantine (Namenda) 5 mg BID ORAL 01/17/17 09:00 02/16/17 08:59 01/19/17 08:04 Nitroglycerin (Ntg) 0.4 mg q5 mins PRN SL Prn Chest Pain 01/16/17 21:30 02/15/17 21:29 Ondansetron HCl (Zofran) 4 mg Q6H PRN IVP Nausea & Vomiting 01/16/17 21:30 02/15/17 21:29 Pantoprazole (Protonix) 40 mg DAILY ORAL 01/17/17 09:00 02/16/17 08:59 01/19/17 08:04 Polyethylene Glycol (Miralax) 17 gm DAILYPRN PRN ORAL Constipation 01/16/17 21:30 02/15/17 21:29 Rivaroxaban (Xarelto) 20 mg DAILY ORAL 01/17/17 09:00 02/16/17 08:59 01/19/17 08:04 Temazepam (Restoril) 15 mg HSPRN PRN ORAL Insomnia 01/16/17 21:30 01/23/17 21:29 Allergies: Coded Allergies: ERYTHROMYCIN BASE (Verified Allergy, Intermediate, 08/28/16) CODEINE (Verified Allergy, Unknown, 08/28/16) MEPERIDINE (Verified Allergy, Unknown, 08/28/16) PENICILLINS (Verified Allergy, Unknown, 08/28/16) ROS Limited/Unobtainable: No Constitutional: Reports: no symptoms HEENT: Reports: no symptoms Cardiovascular: Reports: no symptoms Respiratory: Reports: no symptoms Gastrointestinal/Abdominal: Reports: no symptoms Genitourinary: Reports: no symptoms Neurologic/Psychiatric: Reports: no symptoms Subjective 76 YO F admitted with dysuria. Cover for Int Med-Dr Echevarria. Objective Last Vital Signs Date Time Temp Pulse Resp B/P (MAP) Pulse Ox O2 Delivery O2 Flow Rate FiO2 01/19/17 07:59 89 16 Room Air 21 01/19/17 05:27 121/72 01/19/17 04:00 97.6 99 2.0 Laboratory Tests Test 01/19/17 05:30 White Blood Count 5.1 K/UL (4.8-10.8) Red Blood Count 4.22 M/UL (4.20-5.40) Hemoglobin 11.5 G/DL (12.0-16.0) L Hematocrit 35.3 % (37.0-47.0) L Mean Corpuscular Volume 84 FL (80-99) Mean Corpuscular Hemoglobin 27.3 PG (27.0-31.0) Mean Corpuscular Hemoglobin Concent 32.7 G/DL (32.0-36.0) Red Cell Distribution Width 13.2 % (11.6-14.8) Platelet Count 181 K/UL (150-450) Mean Platelet Volume 8.4 FL (6.5-10.1) Neutrophils (%) (Auto) 38.8 % (45.0-75.0) L Lymphocytes (%) (Auto) 45.0 % (20.0-45.0) Monocytes (%) (Auto) 8.6 % (1.0-10.0) Eosinophils (%) (Auto) 6.4 % (0.0-3.0) H Basophils (%) (Auto) 1.3 % (0.0-2.0) Sodium Level 137 MMOL/L (136-145) Potassium Level 3.8 MMOL/L (3.5-5.1) Chloride Level 103 MMOL/L (98-107) Carbon Dioxide Level 27 MMOL/L (21-32) Anion Gap 7 (5-15) Blood Urea Nitrogen 13 mg/dL (7-18) Creatinine 0.7 MG/DL (0.55-1.30) Estimat Glomerular Filtration Rate mL/min (>60) Glucose Level 104 MG/DL (74-106) Calcium Level 9.0 MG/DL (8.5-10.1) Microbiology Date/Time Source Procedure Growth Status 01/17/17 06:10 Blood Blood Culture - Preliminary NO GROWTH AFTER 24 HOURS Resulted 01/17/17 06:00 Blood Blood Culture - Preliminary NO GROWTH AFTER 24 HOURS Resulted 01/16/17 19:15 Blood Blood Culture - Preliminary NO GROWTH AFTER 48 HOURS Resulted 01/16/17 19:00 Blood Blood Culture - Preliminary NO GROWTH AFTER 48 HOURS Resulted 01/16/17 20:23 Nasal Nares MRSA Culture - Final Staphylococcus Aureus - Mrsa Complete 01/17/17 05:00 Urine,Clean Catch Urine Culture - Preliminary Resulted 01/16/17 19:40 Urine,Clean Catch Urine Culture - Preliminary Escherichia Coli Resulted 01/16/17 20:23 Rectum VRE Culture - Final Enterococcus Faecalis - Vre Complete Objective General Appearance: WD/WN, no apparent distress, alert, obese EENT: PERRL/EOMI, normal ENT inspection Neck: non-tender, normal alignment, supple, normal inspection Cardiovascular: normal peripheral pulses, normal rate, regular rhythm, no gallop/murmur, no JVD Respiratory/Chest: chest wall non-tender, lungs clear, normal breath sounds, no respiratory distress, no accessory muscle use Abdomen: normal bowel sounds, non tender, soft, no organomegaly, no mass Extremities: normal range of motion 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 Coli. Await ID recs for antibiotic (2) Dysuria (3) Sick sinus syndrome Assessment & Plan: S/P pacemaker (4) Pacemaker (5) Diabetes mellitus, type II Assessment & Plan: Continue novolog sliding scale. (6) Hypertension (7) Dysphagia (8) COPD (chronic obstructive pulmonary disease) Assessment & Plan: See pulmonary note. Status: stable VÁZQUEZ,CHEMA Jan 19, 2017 11:46
[2017-01-19 12:14] VITALS: BP 104/71
--- NOTE | 2017-01-19 13:27 | Infectious Diseases Prog Note ---
Assessment/Plan Assessment/Plan IMPRESSION: 1. ESBL E,coli UTI, improving on Abx -u/a significant pyuria, +nitrite; ucx >100K E.coli (S. Zosyn, Ertapenem; R Ancef, Cipro/levo, bactrim) 2. Dm2 3. Dementia. 4. Hypertension. 5. Chronic obstructive pulmonary disease. RECOMMENDATION: -Switch IV Cefepime to Ertapenem for a total of 10 days; ok to be discharge on this regimen via PIV -s/p 3d Cefepime 01/19 -s/p 1d Vanco 01/18 -s/p 1 d Meropenem 01/16 -Monitor CBC/BMP, temperatures Dicussed with RN, micro staff and Dr Colin. Subjective Allergies: Coded Allergies: ERYTHROMYCIN BASE (Verified Allergy, Intermediate, 08/28/16) CODEINE (Verified Allergy, Unknown, 08/28/16) MEPERIDINE (Verified Allergy, Unknown, 08/28/16) PENICILLINS (Verified Allergy, Unknown, 08/28/16) Subjective feels better dysuria improving afebrile Objective Vital Signs Last 24 Hour Vital Signs Date Time Temp Pulse Resp B/P (MAP) Pulse Ox O2 Delivery O2 Flow Rate FiO2 01/19/17 12:14 96.6 86 20 104/71 100 Nasal Cannula 2.0 01/19/17 12:00 104/71 01/19/17 08:00 97.0 95 20 116/66 99 Nasal Cannula 2.0 01/19/17 07:59 89 16 Room Air 21 01/19/17 05:27 121/72 01/19/17 04:00 97.6 91 20 121/72 99 Nasal Cannula 2.0 01/19/17 00:00 97.7 89 21 129/63 98 Nasal Cannula 2.0 01/19/17 00:00 109/71 01/18/17 20:00 97.6 80 20 111/70 100 Nasal Cannula 2.0 01/18/17 19:21 87 20 Room Air 21 01/18/17 17:45 121/71 01/18/17 16:00 98.2 97 20 121/71 99 Nasal Cannula 2.0 Height (Feet): 5 Height (Inches): 6.00 Weight (Pounds): 230 Objective GENERAL APPEARANCE: No acute distress. HEAD AND NECK: [place] conjunctiva. No oral lesion. HEART: S1 and S2 regular. There is a pacemaker in the left side chest wall. LUNGS: Clear. ABDOMEN: Soft and nontender. EXTREMITIES: She has edema, right lower extremity. NEUROLOGIC: She is awake, alert, verbal. Microbiology Date/Time Source Procedure Growth Status 01/17/17 06:10 Blood Blood Culture - Preliminary NO GROWTH AFTER 24 HOURS Resulted 01/17/17 06:00 Blood Blood Culture - Preliminary NO GROWTH AFTER 24 HOURS Resulted 01/16/17 19:15 Blood Blood Culture - Preliminary NO GROWTH AFTER 48 HOURS Resulted 01/16/17 19:00 Blood Blood Culture - Preliminary NO GROWTH AFTER 48 HOURS Resulted 01/16/17 20:23 Nasal Nares MRSA Culture - Final Staphylococcus Aureus - Mrsa Complete 01/17/17 05:00 Urine,Clean Catch Urine Culture - Preliminary Resulted 01/16/17 19:40 Urine,Clean Catch Urine Culture - Preliminary Escherichia Coli Resulted 01/16/17 20:23 Rectum VRE Culture - Final Enterococcus Faecalis - Vre Complete Laboratory Tests Test 01/19/17 05:30 White Blood Count 5.1 K/UL (4.8-10.8) Red Blood Count 4.22 M/UL (4.20-5.40) Hemoglobin 11.5 G/DL (12.0-16.0) L Hematocrit 35.3 % (37.0-47.0) L Mean Corpuscular Volume 84 FL (80-99) Mean Corpuscular Hemoglobin 27.3 PG (27.0-31.0) Mean Corpuscular Hemoglobin Concent 32.7 G/DL (32.0-36.0) Red Cell Distribution Width 13.2 % (11.6-14.8) Platelet Count 181 K/UL (150-450) Mean Platelet Volume 8.4 FL (6.5-10.1) Neutrophils (%) (Auto) 38.8 % (45.0-75.0) L Lymphocytes (%) (Auto) 45.0 % (20.0-45.0) Monocytes (%) (Auto) 8.6 % (1.0-10.0) Eosinophils (%) (Auto) 6.4 % (0.0-3.0) H Basophils (%) (Auto) 1.3 % (0.0-2.0) Sodium Level 137 MMOL/L (136-145) Potassium Level 3.8 MMOL/L (3.5-5.1) Chloride Level 103 MMOL/L (98-107) Carbon Dioxide Level 27 MMOL/L (21-32) Anion Gap 7 (5-15) Blood Urea Nitrogen 13 mg/dL (7-18) Creatinine 0.7 MG/DL (0.55-1.30) Estimat Glomerular Filtration Rate mL/min (>60) Glucose Level 104 MG/DL (74-106) Calcium Level 9.0 MG/DL (8.5-10.1) Current Medications Medications (Trade) Dose Ordered Sig/Joann Route PRN Reason Start Time Stop Time Status Last Admin Dose Admin Acetaminophen (Tylenol) 650 mg Q4H PRN ORAL fever 01/16/17 21:30 02/15/17 21:29 01/17/17 23:48 Albuterol/ Ipratropium (DuoNeb 0.5-3(2.5)mg/3ml) 3 ml EVERY 4 HOURS PRN HHN Shortness of Breath 01/16/17 21:30 01/21/17 21:29 Atorvastatin Calcium (Lipitor) 10 mg BEDTIME ORAL 01/17/17 21:00 02/16/17 20:59 01/18/17 21:09 Cefepime HCl 2 gm/ Dextrose 110 ml @ 220 mls/hr EVERY 12 HOURS IV 01/17/17 09:00 01/24/17 08:59 01/19/17 08:04 Dextrose (Dextrose 50%) STAT PRN IV Hypoglycemia 01/16/17 21:30 02/15/17 21:29 Diphenhydramine HCl (Benadryl) 25 mg Q6H PRN IVP Itching 01/16/17 23:00 02/15/17 22:59 Gabapentin (Neurontin) 100 mg TID ORAL 01/17/17 09:00 02/16/17 08:59 01/19/17 08:04 Hydralazine HCl (Apresoline) 25 mg EVERY 6 HOURS ORAL 01/17/17 00:00 02/16/17 00:00 01/17/17 12:25 Insulin Aspart (NovoLOG) BEFORE MEALS AND HS SUBQ 01/17/17 06:30 02/16/17 06:29 01/19/17 12:16 Memantine (Namenda) 5 mg BID ORAL 01/17/17 09:00 02/16/17 08:59 01/19/17 08:04 Nitroglycerin (Ntg) 0.4 mg q5 mins PRN SL Prn Chest Pain 01/16/17 21:30 02/15/17 21:29 Ondansetron HCl (Zofran) 4 mg Q6H PRN IVP Nausea & Vomiting 01/16/17 21:30 02/15/17 21:29 Pantoprazole (Protonix) 40 mg DAILY ORAL 01/17/17 09:00 02/16/17 08:59 01/19/17 08:04 Polyethylene Glycol (Miralax) 17 gm DAILYPRN PRN ORAL Constipation 01/16/17 21:30 02/15/17 21:29 Rivaroxaban (Xarelto) 20 mg DAILY ORAL 01/17/17 09:00 02/16/17 08:59 01/19/17 08:04 Temazepam (Restoril) 15 mg HSPRN PRN ORAL Insomnia 01/16/17 21:30 01/23/17 21:29 Lila Gonzalez M.D. Jan 19, 2017 13:27
[2017-01-19] MEDS: Ertapenem 1 GM in NS 55 ML IVPB SCH (15:30)
[2017-01-19 16:00] VITALS: BP 100/48
--- NOTE | 2017-01-19 16:04 | Wound Care Consultation ---
Wound Assessment Wound Assessment #1: Wound Number: 1 Wound Present on Admission: Yes New Wound: No Status Change of Wound: No Wound Location Body Site Modif: mid Wound Location Body Site: other - sacrococcygeal Wound Type: pressure ulcer Dyan Test: Does not Dyan Pressure Ulcer Stage: III Wound Thickness: Full Thickness Wound Length: 1.5 Wound Width: 1.5 Wound Depth: 0.2 Percent of Wound [place]/Red: 100 Wound Drainage Description: Serosanguineous Wound Drainage Amount: Scant Wound Drainage Odor: None/Absent Tissue Surrounding Wound: scar tissue Wound General Appearance: Reddened Wound Assessment #2: Wound Number: 2 Wound Present on Admission: Yes New Wound: No Status Change of Wound: No Wound Location Body Site Modif: left, right Wound Location Body Site: buttocks Wound Type: pressure ulcer Dyan Test: Does not Dyan Wound Thickness: Full Thickness - scar tissue Percent of Wound [place]/Red: 100 Wound Drainage Amount: None Wound Drainage Odor: None/Absent Tissue Surrounding Wound: Erythemic Wound General Appearance: Reddened Wound Comment #1 Sacral stage III pressure ulcer. Surrounding tissue with full thickness scar tissue. #2 Left and right buttocks with full thickness scar tissue. Recommendation -Sacral stage III pressure ulcer. Surrounding tissue with full thickness scar tissue. Cleanse with saline, pat dry, apply Triad cream to wound bed and surrounding area, cover with Biatain silicone drg daily and PRN soiled/dislodged -Left and right buttocks with full thickness scar tissue. Local wound care per protocol with skin barrier film -Low air loss mattress -Optimize nutrition -Turn and reposition -Keep clean and dry -Heel protector on both heels -Offload both heels -Assess and f/u accordingly for any changes SANDRO RIDER RN Jan 19, 2017 16:04
--- NOTE | 2017-01-19 16:29 | Pulmonology Progress Note ---
Assessment/Plan Problems: (1) Sepsis (2) Pacemaker (3) Hypertension (4) Diabetes mellitus, type II Assessment/Plan improving continue abx check cultures symptomatic treatment dvt prophylaxis ID note reviewed all meds and labs reviewed. Subjective ROS Limited/Unobtainable: No Constitutional: Reports: no symptoms HEENT: Repors: no symptoms Respiratory: Reports: no symptoms Allergies: Coded Allergies: ERYTHROMYCIN BASE (Verified Allergy, Intermediate, 08/28/16) CODEINE (Verified Allergy, Unknown, 08/28/16) MEPERIDINE (Verified Allergy, Unknown, 08/28/16) PENICILLINS (Verified Allergy, Unknown, 08/28/16) Objective Last 24 Hour Vital Signs Date Time Temp Pulse Resp B/P (MAP) Pulse Ox O2 Delivery O2 Flow Rate FiO2 01/19/17 12:14 96.6 86 20 104/71 100 Nasal Cannula 2.0 01/19/17 12:00 104/71 01/19/17 08:00 97.0 95 20 116/66 99 Nasal Cannula 2.0 01/19/17 07:59 89 16 Room Air 21 01/19/17 05:27 121/72 01/19/17 04:00 97.6 91 20 121/72 99 Nasal Cannula 2.0 01/19/17 00:00 97.7 89 21 129/63 98 Nasal Cannula 2.0 01/19/17 00:00 109/71 01/18/17 20:00 97.6 80 20 111/70 100 Nasal Cannula 2.0 01/18/17 19:21 87 20 Room Air 21 01/18/17 17:45 121/71 Intake and Output 01/19/17 01/20/17 19:00 07:00 Intake Total 240 ml Balance 240 ml Intake Oral 240 ml # Voids 4 General Appearance: no acute distress HEENT: normocephalic, atraumatic Respiratory/Chest: chest wall non-tender, normal breath sounds Breasts: no masses Cardiovascular: normal rate Abdomen: normal bowel sounds, no organomegaly Genitourinary: normal external genitalia Extremities: no clubbing Skin: no lesions Microbiology Date/Time Source Procedure Growth Status 01/17/17 06:10 Blood Blood Culture - Preliminary NO GROWTH AFTER 24 HOURS Resulted 01/17/17 06:00 Blood Blood Culture - Preliminary NO GROWTH AFTER 24 HOURS Resulted 01/16/17 19:15 Blood Blood Culture - Preliminary NO GROWTH AFTER 48 HOURS Resulted 01/16/17 19:00 Blood Blood Culture - Preliminary NO GROWTH AFTER 48 HOURS Resulted 01/16/17 20:23 Nasal Nares MRSA Culture - Final Staphylococcus Aureus - Mrsa Complete 01/17/17 05:00 Urine,Clean Catch Urine Culture - Preliminary Resulted 01/16/17 19:40 Urine,Clean Catch Urine Culture - Preliminary Escherichia Coli Resulted 01/16/17 20:23 Rectum VRE Culture - Final Enterococcus Faecalis - Vre Complete Laboratory Tests 01/19/17 05:30: White Blood Count 5.1, Red Blood Count 4.22, Hemoglobin 11.5L, Hematocrit 35.3L , Mean Corpuscular Volume 84, Mean Corpuscular Hemoglobin 27.3, Mean Corpuscular Hemoglobin Concent 32.7, Red Cell Distribution Width 13.2, Platelet Count 181, Mean Platelet Volume 8.4, Neutrophils (%) (Auto) 38.8L, Lymphocytes ( %) (Auto) 45.0, Monocytes (%) (Auto) 8.6, Eosinophils (%) (Auto) 6.4H, Basophils (%) (Auto) 1.3, Sodium Level 137, Potassium Level 3.8, Chloride Level 103, Carbon Dioxide Level 27, Anion Gap 7, Blood Urea Nitrogen 13, Creatinine 0.7, Estimat Glomerular Filtration Rate , Glucose Level 104, Calcium Level 9.0 Current Medications Medications (Trade) Dose Ordered Sig/Joann Route PRN Reason Start Time Stop Time Status Last Admin Dose Admin Acetaminophen (Tylenol) 650 mg Q4H PRN ORAL fever 01/16/17 21:30 02/15/17 21:29 01/17/17 23:48 Albuterol/ Ipratropium (DuoNeb 0.5-3(2.5)mg/3ml) 3 ml EVERY 4 HOURS PRN HHN Shortness of Breath 01/16/17 21:30 01/21/17 21:29 Atorvastatin Calcium (Lipitor) 10 mg BEDTIME ORAL 01/17/17 21:00 02/16/17 20:59 01/18/17 21:09 Dextrose (Dextrose 50%) STAT PRN IV Hypoglycemia 01/16/17 21:30 02/15/17 21:29 Diphenhydramine HCl (Benadryl) 25 mg Q6H PRN IVP Itching 01/16/17 23:00 11/5/17 22:59 Ertapenem 1 gm/ Sodium Chloride 55 ml @ 110 mls/hr Q24H IVPB 01/19/17 15:00 01/24/17 14:59 01/19/17 15:30 Gabapentin (Neurontin) 100 mg TID ORAL 01/17/17 09:00 02/16/17 08:59 01/19/17 13:50 Hydralazine HCl (Apresoline) 25 mg EVERY 6 HOURS ORAL 01/17/17 00:00 02/16/17 00:00 01/17/17 12:25 Insulin Aspart (NovoLOG) BEFORE MEALS AND HS SUBQ 01/17/17 06:30 02/16/17 06:29 01/19/17 12:16 Memantine (Namenda) 5 mg BID ORAL 01/17/17 09:00 02/16/17 08:59 01/19/17 08:04 Nitroglycerin (Ntg) 0.4 mg q5 mins PRN SL Prn Chest Pain 01/16/17 21:30 02/15/17 21:29 Ondansetron HCl (Zofran) 4 mg Q6H PRN IVP Nausea & Vomiting 01/16/17 21:30 02/15/17 21:29 Pantoprazole (Protonix) 40 mg DAILY ORAL 01/17/17 09:00 02/16/17 08:59 01/19/17 08:04 Polyethylene Glycol (Miralax) 17 gm DAILYPRN PRN ORAL Constipation 01/16/17 21:30 02/15/17 21:29 Rivaroxaban (Xarelto) 20 mg DAILY ORAL 01/17/17 09:00 02/16/17 08:59 01/19/17 08:04 Temazepam (Restoril) 15 mg HSPRN PRN ORAL Insomnia 01/16/17 21:30 01/23/17 21:29 JONH RODRIGUEZ Jan 19, 2017 16:29
[2017-01-19 20:00] VITALS: BP 126/77
[2017-01-19] MEDS: Dyna-Hex 2% Top Sol 2oz TOPIC SCH (21:26)
[2017-01-20] VITALS: BP 128/72
[2017-01-20 04:00] VITALS: BP 122/79
[2017-01-20] MEDS: HydrALAZINE 10mg Tab ORAL SCH ×4 (06:00→17:55)
[2017-01-20] MEDS: NovoLOG Insulin Flexpen SUBQ SCH ×4 (06:11→20:42)
[2017-01-20 07:11] LABS: BASOPHILS % (AUTO) 1.5 % (0.0-2.0); EOSINOPHILS % (AUTO) 4.4 % (0.0-3.0); MEAN CORPUSCULAR HEMOGLOBIN 27.5 PG (27.0-31.0); MEAN CORPUSCULAR HGB CONC 33.1 G/DL (32.0-36.0); MEAN CORPUSCULAR VOLUME 83 FL (80-99); MEAN PLATELET VOLUME 8.7 FL (6.5-10.1); MONOCYTES % (AUTO) 10.1 % (1.0-10.0); PLATELET COUNT 174 K/UL (150-450); RED BLOOD COUNT 4.36 M/UL (4.20-5.40); RED CELL DISTRIBUTION WIDTH 13.2 % (11.6-14.8); WHITE BLOOD COUNT 5.9 K/UL (4.8-10.8)
[2017-01-20] MEDS ORDERED: Lidocaine 1% Plain 30 ml INJ PRN (07:26)
[2017-01-20] MEDS ORDERED: Heparin 2000 units/Ns 1000ml INJ PRN (07:26)
[2017-01-20 08:15] VITALS: BP 121/79
[2017-01-20] MEDS: Xarelto 10mg tab ORAL SCH (09:18)
[2017-01-20] MEDS: Memantine 10mg tab ORAL SCH ×2 (09:18→17:54)
[2017-01-20 11:48] VITALS: BP 108/77
--- NOTE | 2017-01-20 12:58 | Physician Query ---
PLEASE COMPLETE DOCUMENT BEFORE SIGNING Dear Dr. Wilder Colin Date: January Utility Repairer/CDS Name: CK Weston Utility Repairer/CDS Phone No.: [phone] Exercise your independent professional judgment when responding to the query. Questions asked do not imply a particular answer is desired or expected. We greatly appreciate your clarification on this issue. CLINICAL DOCUMENTATION STATES: "1 Sacral stage III pressure ulcer. Surrounding tissue with full thickness scar tissue/Left and right buttocks with full thickness scar tissue" documented in the wound care nurse's notes. CLINICAL FINDINGS SHOW: Wound Assessment Wound Assessment #1: Wound Number: 1 Wound Present on Admission: Yes New Wound: No Status Change of Wound: No Wound Location Body Site Modif: mid Wound Location Body Site: other - sacrococcygeal Wound Type: pressure ulcer Dyan Test: Does not Dyan Pressure Ulcer Stage: III Wound Thickness: Full Thickness Wound Length: 1.5 Wound Width: 1.5 Wound Depth: 0.2 Percent of Wound [place]/Red: 100 Wound Drainage Description: Serosanguineous Wound Drainage Amount: Scant Wound Drainage Odor: None/Absent Tissue Surrounding Wound: scar tissue Wound General Appearance: Reddened Please respond to the following question: Do you agree with the clinical finding of a Stage 3 sacral ulcer? PHYSICIAN RESPONSE: [ ] YES [ ] NO If YES, Please document in your progress notes: Condition Present on Admission: [] Yes [] No []Clinically Undeterminable Please also document in your Progress Notes and/or Discharge Summary and indicate if the condition was present on admission. Wilder Colin MD Date/Time [facility]
[2017-01-20] MEDS: Ertapenem 1 GM in NS 55 ML IVPB SCH (15:09)
[2017-01-20 15:25] VITALS: BP 111/66
--- NOTE | 2017-01-20 16:41 | Diagnostic Imaging Report ---
Indications: Needs long-term IV access Technique: Ultrasound confirms patent compressible right basilic vein. Total sterile technique, including sterile probe cover and sterile gel, hat, mask,, sterile gown, large sterile drape, and preparation with 2% chlorhexidine utilized. Local anesthesia with 1% lidocaine. Under real-time ultrasound guidance, puncture right basilic vein using 21-gauge needle, documented and archived, passage 0.018 guidewire under direct fluoroscopy, which was used to determine appropriate catheter length, exchange for 5 [place] peel-away sheath. 5 [place] dual-lumen power PICC cut to 44 cm. It was inserted through the peel-away sheath. Peel-away sheath and guidewire removed. Catheter fixed to the skin. Both catheter ports aspirated and flushed. Patient tolerated procedure well, without immediate complication. Digital radiograph documents satisfactory catheter tip position, at the cavoatrial junction. Total fluoroscopy time 0.3 minutes. Total dose area product 34 dGycm2 Impression: Successful placement of right arm PICC under sonographic and fluoroscopic guidance, as described above.
--- NOTE | 2017-01-20 17:16 | Internal Med Progress Note ---
Subjective Date of Service: Jan 20, 2017 Physician Name Chema Vázquez Attending Physician Zion Echevarria MD Current Medications Medications (Trade) Dose Ordered Sig/Joann Route PRN Reason Start Time Stop Time Status Last Admin Dose Admin Acetaminophen (Tylenol) 650 mg Q4H PRN ORAL fever 01/16/17 21:30 02/15/17 21:29 01/17/17 23:48 Albuterol/ Ipratropium (DuoNeb 0.5-3(2.5)mg/3ml) 3 ml EVERY 4 HOURS PRN HHN Shortness of Breath 01/16/17 21:30 01/21/17 21:29 Atorvastatin Calcium (Lipitor) 10 mg BEDTIME ORAL 01/17/17 21:00 02/16/17 20:59 01/19/17 21:14 Chlorhexidine Gluconate (Della-Hex 2%) 1 applic Q24HRS TOPIC 01/19/17 20:00 02/18/17 19:59 01/19/17 21:26 Dextrose (Dextrose 50%) STAT PRN IV Hypoglycemia 01/16/17 21:30 02/15/17 21:29 Diphenhydramine HCl (Benadryl) 25 mg Q6H PRN IVP Itching 01/16/17 23:00 02/15/17 22:59 Ertapenem 1 gm/ Sodium Chloride 55 ml @ 110 mls/hr Q24H IVPB 01/19/17 15:00 01/24/17 14:59 01/20/17 15:09 Gabapentin (Neurontin) 100 mg TID ORAL 01/17/17 09:00 02/16/17 08:59 01/20/17 12:46 Heparin Sodium/ Sodium Chloride (Heparin 2000 units/Ns 1000ml premix) 2,000 unit ONCE PRN INJ PICC LINE 01/20/17 07:26 01/21/17 23:59 Hydralazine HCl (Apresoline) 25 mg EVERY 6 HOURS ORAL 01/17/17 00:00 02/16/17 00:00 01/20/17 12:46 Insulin Aspart (NovoLOG) BEFORE MEALS AND HS SUBQ 01/17/17 06:30 02/16/17 06:29 01/20/17 12:49 Lidocaine HCl (Xylocaine 1% 30ml) 30 ml ONCE PRN INJ PICC LINE 01/20/17 07:26 01/21/17 23:59 Memantine (Namenda) 5 mg BID ORAL 01/17/17 09:00 02/16/17 08:59 01/20/17 09:18 Nitroglycerin (Ntg) 0.4 mg q5 mins PRN SL Prn Chest Pain 01/16/17 21:30 02/15/17 21:29 Ondansetron HCl (Zofran) 4 mg Q6H PRN IVP Nausea & Vomiting 01/16/17 21:30 02/15/17 21:29 Pantoprazole (Protonix) 40 mg DAILY ORAL 01/17/17 09:00 02/16/17 08:59 01/20/17 09:18 Polyethylene Glycol (Miralax) 17 gm DAILYPRN PRN ORAL Constipation 01/16/17 21:30 02/15/17 21:29 Rivaroxaban (Xarelto) 20 mg DAILY ORAL 01/17/17 09:00 02/16/17 08:59 01/20/17 09:18 Temazepam (Restoril) 15 mg HSPRN PRN ORAL Insomnia 01/16/17 21:30 01/23/17 21:29 Allergies: Coded Allergies: ERYTHROMYCIN BASE (Verified Allergy, Intermediate, 08/28/16) CODEINE (Verified Allergy, Unknown, 08/28/16) MEPERIDINE (Verified Allergy, Unknown, 08/28/16) PENICILLINS (Verified Allergy, Unknown, 08/28/16) ROS Limited/Unobtainable: No Constitutional: Reports: no symptoms HEENT: Reports: no symptoms Cardiovascular: Reports: no symptoms Respiratory: Reports: no symptoms Gastrointestinal/Abdominal: Reports: no symptoms Genitourinary: Reports: no symptoms Neurologic/Psychiatric: Reports: no symptoms Subjective 76 YO F admitted with dysuria. Cover for Int Ryan-Dr Echevarria. Await discharge home today Objective Last Vital Signs Date Time Temp Pulse Resp B/P (MAP) Pulse Ox O2 Delivery O2 Flow Rate FiO2 01/20/17 15:25 97.6 89 20 111/66 100 Nasal Cannula 3.0 01/20/17 07:55 21 Laboratory Tests Test 01/20/17 05:50 White Blood Count 5.9 K/UL (4.8-10.8) Red Blood Count 4.36 M/UL (4.20-5.40) Hemoglobin 12.0 G/DL (12.0-16.0) Hematocrit 36.2 % (37.0-47.0) L Mean Corpuscular Volume 83 FL (80-99) Mean Corpuscular Hemoglobin 27.5 PG (27.0-31.0) Mean Corpuscular Hemoglobin Concent 33.1 G/DL (32.0-36.0) Red Cell Distribution Width 13.2 % (11.6-14.8) Platelet Count 174 K/UL (150-450) Mean Platelet Volume 8.7 FL (6.5-10.1) Neutrophils (%) (Auto) 40.0 % (45.0-75.0) L Lymphocytes (%) (Auto) 44.0 % (20.0-45.0) Monocytes (%) (Auto) 10.1 % (1.0-10.0) H Eosinophils (%) (Auto) 4.4 % (0.0-3.0) H Basophils (%) (Auto) 1.5 % (0.0-2.0) Intake and Output 01/20/17 01/21/17 19:00 07:00 Intake Total 295 ml Balance 295 ml Intake Oral 240 ml IV Total 55 ml Objective General Appearance: WD/WN, no apparent distress, alert, obese EENT: PERRL/EOMI, normal ENT inspection Neck: non-tender, normal alignment, supple, normal inspection Cardiovascular: normal peripheral pulses, normal rate, regular rhythm, no gallop/murmur, no JVD Respiratory/Chest: chest wall non-tender, lungs clear, normal breath sounds, no respiratory distress, no accessory muscle use Abdomen: normal bowel sounds, non tender, soft, no organomegaly, no mass Extremities: normal range of motion Neurologic: heading pinner II-XII grossly normal Skin: normal pigmentation, warm/dry Assessment/Plan Problem List: (1) UTI (urinary tract infection) Assessment & Plan: Multi-drug resistant E. Coli. Continue Ertapenem for 10 days per ID (2) Dysuria (3) Sick sinus syndrome Assessment & Plan: S/P pacemaker (4) Pacemaker (5) Diabetes mellitus, type II Assessment & Plan: Continue novolog sliding scale. (6) Hypertension (7) Dysphagia (8) COPD (chronic obstructive pulmonary disease) Assessment & Plan: See pulmonary note. Status: stable Assessment/Plan D/C home today with [facility] health CHEMA VÁZQUEZ Jan 20, 2017 17:15
[2017-01-20 17:55] VITALS: BP 111/66
--- NOTE | 2017-01-20 18:13 | Pulmonology Progress Note ---
Assessment/Plan Problems: (1) Sepsis (2) Pacemaker (3) Hypertension (4) Diabetes mellitus, type II Assessment/Plan improving continue abx on Ertapenem check cultures symptomatic treatment dvt prophylaxis all meds and labs reviewed. Subjective ROS Limited/Unobtainable: No Constitutional: Reports: no symptoms HEENT: Repors: no symptoms Respiratory: Reports: no symptoms Allergies: Coded Allergies: ERYTHROMYCIN BASE (Verified Allergy, Intermediate, 08/28/16) CODEINE (Verified Allergy, Unknown, 08/28/16) MEPERIDINE (Verified Allergy, Unknown, 08/28/16) PENICILLINS (Verified Allergy, Unknown, 08/28/16) Objective Last 24 Hour Vital Signs Date Time Temp Pulse Resp B/P (MAP) Pulse Ox O2 Delivery O2 Flow Rate FiO2 01/20/17 17:55 111/66 01/20/17 15:25 97.6 89 20 111/66 100 Nasal Cannula 3.0 01/20/17 12:46 108/77 01/20/17 11:48 97.5 86 21 108/77 99 Room Air 01/20/17 08:15 97.2 91 21 121/79 97 Room Air 01/20/17 07:55 88 16 Room Air 21 01/20/17 06:00 118/72 01/20/17 04:00 97.5 87 20 122/79 99 Nasal Cannula 2.0 01/20/17 00:00 128/72 01/20/17 00:00 97.8 90 20 128/72 98 Room Air 01/19/17 20:00 97.7 93 20 126/77 97 Room Air 01/19/17 19:00 94 16 Room Air 21 Intake and Output 01/20/17 01/21/17 19:00 07:00 Intake Total 295 ml Balance 295 ml Intake Oral 240 ml IV Total 55 ml General Appearance: WD/WN, no acute distress HEENT: normocephalic, atraumatic Respiratory/Chest: chest wall non-tender, lungs clear Breasts: no masses Cardiovascular: normal peripheral pulses Abdomen: normal bowel sounds, soft, non tender Genitourinary: normal external genitalia Extremities: no cyanosis Neurologic/Psychiatric: off premise service representative II-XII grossly normal Laboratory Tests 01/20/17 05:50: White Blood Count 5.9, Red Blood Count 4.36, Hemoglobin 12.0, Hematocrit 36.2L, Mean Corpuscular Volume 83, Mean Corpuscular Hemoglobin 27.5, Mean Corpuscular Hemoglobin Concent 33.1, Red Cell Distribution Width 13.2, Platelet Count 174, Mean Platelet Volume 8.7, Neutrophils (%) (Auto) 40.0L, Lymphocytes (%) (Auto) 44.0, Monocytes (%) (Auto) 10.1H, Eosinophils (%) (Auto) 4.4H, Basophils (%) ( Auto) 1.5 Current Medications Medications (Trade) Dose Ordered Sig/Joann Route PRN Reason Start Time Stop Time Status Last Admin Dose Admin Acetaminophen (Tylenol) 650 mg Q4H PRN ORAL fever 01/16/17 21:30 02/15/17 21:29 01/17/17 23:48 Albuterol/ Ipratropium (DuoNeb 0.5-3(2.5)mg/3ml) 3 ml EVERY 4 HOURS PRN HHN Shortness of Breath 01/16/17 21:30 01/21/17 21:29 Atorvastatin Calcium (Lipitor) 10 mg BEDTIME ORAL 01/17/17 21:00 02/16/17 20:59 01/19/17 21:14 Chlorhexidine Gluconate (Della-Hex 2%) 1 applic Q24HRS TOPIC 01/19/17 20:00 02/18/17 19:59 01/19/17 21:26 Dextrose (Dextrose 50%) STAT PRN IV Hypoglycemia 01/16/17 21:30 02/15/17 21:29 Diphenhydramine HCl (Benadryl) 25 mg Q6H PRN IVP Itching 01/16/17 23:00 02/15/17 22:59 Ertapenem 1 gm/ Sodium Chloride 55 ml @ 110 mls/hr Q24H IVPB 01/19/17 15:00 01/24/17 14:59 01/20/17 15:09 Gabapentin (Neurontin) 100 mg TID ORAL 01/17/17 09:00 02/16/17 08:59 01/20/17 17:54 Heparin Sodium/ Sodium Chloride (Heparin 2000 units/Ns 1000ml premix) 2,000 unit ONCE PRN INJ PICC LINE 01/20/17 07:26 01/21/17 23:59 Hydralazine HCl (Apresoline) 25 mg EVERY 6 HOURS ORAL 01/17/17 00:00 02/16/17 00:00 01/20/17 17:55 Insulin Aspart (NovoLOG) BEFORE MEALS AND HS SUBQ 01/17/17 06:30 02/16/17 06:29 01/20/17 17:56 Lidocaine HCl (Xylocaine 1% 30ml) 30 ml ONCE PRN INJ PICC LINE 01/20/17 07:26 01/21/17 23:59 Memantine (Namenda) 5 mg BID ORAL 01/17/17 09:00 02/16/17 08:59 01/20/17 17:54 Nitroglycerin (Ntg) 0.4 mg q5 mins PRN SL Prn Chest Pain 01/16/17 21:30 02/15/17 21:29 Ondansetron HCl (Zofran) 4 mg Q6H PRN IVP Nausea & Vomiting 01/16/17 21:30 02/15/17 21:29 Pantoprazole (Protonix) 40 mg DAILY ORAL 01/17/17 09:00 02/16/17 08:59 01/20/17 09:18 Polyethylene Glycol (Miralax) 17 gm DAILYPRN PRN ORAL Constipation 01/16/17 21:30 02/15/17 21:29 Rivaroxaban (Xarelto) 20 mg DAILY ORAL 01/17/17 09:00 02/16/17 08:59 01/20/17 09:18 Temazepam (Restoril) 15 mg HSPRN PRN ORAL Insomnia 01/16/17 21:30 01/23/17 21:29 JONH RODRIGUEZ Jan 20, 2017 18:13
--- NOTE | 2017-01-20 19:53 | Infectious Diseases Prog Note ---
Assessment/Plan Assessment/Plan IMPRESSION: 1. ESBL E,coli UTI, improving on Abx -u/a significant pyuria, +nitrite; ucx >100K E.coli (S. Zosyn, Ertapenem; R Ancef, Cipro/levo, bactrim); repeat ucx: STREPTOCOCCUS SPECIES COLONY COUNT: 10,000 - 20,000 CFU/ML 2. Dm2 3. Dementia. 4. Hypertension. 5. Chronic obstructive pulmonary disease. 6. MRSA colonized 7. VRE colonized RECOMMENDATION: -Continue Ertapenem #2/10 for ESBL UTI; ok to be discharge on this regimen via PIV -s/p 3d Cefepime 01/19 -s/p 1d Vanco 10 -s/p 1 d Meropenem 01/16 -Monitor CBC/BMP, temperatures Dicussed with RN. Subjective Allergies: Coded Allergies: ERYTHROMYCIN BASE (Verified Allergy, Intermediate, 08/28/16) CODEINE (Verified Allergy, Unknown, 08/28/16) MEPERIDINE (Verified Allergy, Unknown, 08/28/16) PENICILLINS (Verified Allergy, Unknown, 08/28/16) Subjective feels better dysuria improving afebrile Objective Vital Signs Last 24 Hour Vital Signs Date Time Temp Pulse Resp B/P (MAP) Pulse Ox O2 Delivery O2 Flow Rate FiO2 01/20/17 17:55 111/66 01/20/17 15:25 97.6 89 20 111/66 100 Nasal Cannula 3.0 01/20/17 12:46 108/77 01/20/17 11:48 97.5 86 21 108/77 99 Room Air 01/20/17 08:15 97.2 91 21 121/79 97 Room Air 01/20/17 07:55 88 16 Room Air 21 01/20/17 06:00 118/72 01/20/17 04:00 97.5 87 20 122/79 99 Nasal Cannula 2.0 01/20/17 00:00 128/72 01/20/17 00:00 97.8 90 20 128/72 98 Room Air 01/19/17 20:00 97.7 93 20 126/77 97 Room Air Height (Feet): 5 Height (Inches): 6.00 Weight (Pounds): 230 Objective GENERAL APPEARANCE: No acute distress. HEAD AND NECK: Ruffin conjunctiva. No oral lesion. HEART: S1 and S2 regular. There is a pacemaker in the left side chest wall. LUNGS: Clear. ABDOMEN: Soft and nontender. EXTREMITIES: She has edema, right lower extremity. NEUROLOGIC: She is awake, alert, verbal. Laboratory Tests Test 01/20/17 05:50 White Blood Count 5.9 K/UL (4.8-10.8) Red Blood Count 4.36 M/UL (4.20-5.40) Hemoglobin 12.0 G/DL (12.0-16.0) Hematocrit 36.2 % (37.0-47.0) L Mean Corpuscular Volume 83 FL (80-99) Mean Corpuscular Hemoglobin 27.5 PG (27.0-31.0) Mean Corpuscular Hemoglobin Concent 33.1 G/DL (32.0-36.0) Red Cell Distribution Width 13.2 % (11.6-14.8) Platelet Count 174 K/UL (150-450) Mean Platelet Volume 8.7 FL (6.5-10.1) Neutrophils (%) (Auto) 40.0 % (45.0-75.0) L Lymphocytes (%) (Auto) 44.0 % (20.0-45.0) Monocytes (%) (Auto) 10.1 % (1.0-10.0) H Eosinophils (%) (Auto) 4.4 % (0.0-3.0) H Basophils (%) (Auto) 1.5 % (0.0-2.0) Current Medications Medications (Trade) Dose Ordered Sig/Joann Route PRN Reason Start Time Stop Time Status Last Admin Dose Admin Acetaminophen (Tylenol) 650 mg Q4H PRN ORAL fever 01/16/17 21:30 02/15/17 21:29 01/17/17 23:48 Albuterol/ Ipratropium (DuoNeb 0.5-3(2.5)mg/3ml) 3 ml EVERY 4 HOURS PRN HHN Shortness of Breath 01/16/17 21:30 01/21/17 21:29 Atorvastatin Calcium (Lipitor) 10 mg BEDTIME ORAL 01/17/17 21:00 02/16/17 20:59 01/19/17 21:14 Chlorhexidine Gluconate (Della-Hex 2%) 1 applic Q24HRS TOPIC 01/19/17 20:00 02/18/17 19:59 01/19/17 21:26 Dextrose (Dextrose 50%) STAT PRN IV Hypoglycemia 01/16/17 21:30 02/15/17 21:29 Diphenhydramine HCl (Benadryl) 25 mg Q6H PRN IVP Itching 01/16/17 23:00 02/15/17 22:59 Ertapenem 1 gm/ Sodium Chloride 55 ml @ 110 mls/hr Q24H IVPB 01/19/17 15:00 01/24/17 14:59 01/20/17 15:09 Gabapentin (Neurontin) 100 mg TID ORAL 01/17/17 09:00 02/16/17 08:59 01/20/17 17:54 Heparin Sodium/ Sodium Chloride (Heparin 2000 units/Ns 1000ml premix) 2,000 unit ONCE PRN INJ PICC LINE 01/20/17 07:26 01/21/17 23:59 Hydralazine HCl (Apresoline) 25 mg EVERY 6 HOURS ORAL 01/17/17 00:00 02/16/17 00:00 01/20/17 17:55 Insulin Aspart (NovoLOG) BEFORE MEALS AND HS SUBQ 01/17/17 06:30 02/16/17 06:29 01/20/17 17:56 Lidocaine HCl (Xylocaine 1% 30ml) 30 ml ONCE PRN INJ PICC LINE 01/20/17 07:26 01/21/17 23:59 Memantine (Namenda) 5 mg BID ORAL 01/17/17 09:00 02/16/17 08:59 01/20/17 17:54 Nitroglycerin (Ntg) 0.4 mg q5 mins PRN SL Prn Chest Pain 01/16/17 21:30 02/15/17 21:29 Ondansetron HCl (Zofran) 4 mg Q6H PRN IVP Nausea & Vomiting 01/16/17 21:30 02/15/17 21:29 Pantoprazole (Protonix) 40 mg DAILY ORAL 01/17/17 09:00 02/16/17 08:59 01/20/17 09:18 Polyethylene Glycol (Miralax) 17 gm DAILYPRN PRN ORAL Constipation 01/16/17 21:30 11/5/17 21:29 Rivaroxaban (Xarelto) 20 mg DAILY ORAL 01/17/17 09:00 02/16/17 08:59 01/20/17 09:18 Temazepam (Restoril) 15 mg HSPRN PRN ORAL Insomnia 01/16/17 21:30 01/23/17 21:29 Lila Gonzalez M.D. Jan 20, 2017 19:53
[2017-01-20] MEDS: Dyna-Hex 2% Top Sol 2oz TOPIC SCH (20:00)
[2017-01-20] MEDS ORDERED: NS 275ml ONE (21:59)
[2017-01-20] MEDS ORDERED: Tubing IV Secondary IV ONE (21:59)
--- NOTE | 2017-01-20 22:48 | Consultation ---
History of Present Illness General Date patient seen: Jan 19, 2017 Chief Complaint: Female Urogenital Problems Referring physician: Dr. Echevarria Reason for Consultation: inpatient management Present Illness HPI 76-year-old female, who presents with chief complaint of burning on urination for two to three days. in the am the pt pw confusion and was disoriented. During my eval the pt had mild cognitive impairment and anxiety. otherwise her ms was wnl. Allergies: Coded Allergies: ERYTHROMYCIN BASE (Verified Allergy, Intermediate, 08/28/16) CODEINE (Verified Allergy, Unknown, 08/28/16) MEPERIDINE (Verified Allergy, Unknown, 08/28/16) PENICILLINS (Verified Allergy, Unknown, 08/28/16) Medication History Scheduled Atorvastatin Calcium* (Lipitor*), 10 MG ORAL BEDTIME, (Reported) Docusate Sodium* (Colace*), 100 MG ORAL EVERY 12 HOURS Ertapenem Sodium* (INVanz*), 1 GM IVPB Q24H Furosemide* (Lasix*), 40 MG ORAL DAILY Gabapentin* (Gabapentin*), 100 MG ORAL TID Gabapentin* (Gabapentin*), 300 MG ORAL BID, (Reported) Hydralazine HCl (Hydralazine HCl), 25 MG ORAL EVERY 6 HOURS, (Reported) Insulin Aspart (Novolog Flexpen), 0 UNITS SUBQ BEFORE MEALS AND HS Memantine Hcl* (Namenda*), 5 MG ORAL BID, (Reported) Metformin Hcl* (Metformin Hcl*), 500 MG ORAL TWICE A DAY, (Reported) Montelukast Sodium* (Montelukast Sodium*), 10 MG ORAL DAILY, (Reported) Pantoprazole* (Protonix*), 40 MG ORAL DAILY Potassium Chloride (Potassium Chloride), 10 MEQ ORAL DAILY Rivaroxaban (Xarelto*), 20 MG ORAL DAILY Spironolactone (Aldactone), 25 MG ORAL DAILY Verapamil Hcl* (Calan Sr*), 250 MG ORAL DAILY, (Reported) Scheduled PRN Acetaminophen* (Acetaminophen 325MG Tablet*), 650 MG ORAL Q4H PRN for Mild Pain / TEMP>101 Ibuprofen* (Motrin*), 200 MG ORAL Q4HR PRN for For Pain, (Reported) Miscellaneous Medications Ipratropium/Albuterol Sulfate (DuoNeb 0.5-3(2.5)mg/3ml), 3 ML HHN, (Reported) Unable to Obtain Medications (Unable To Obtain Meds), (Reported) Patient History History Provided By: Patient, Medical Record, PMD Healthcare decision maker N Resuscitation status Full Code Advanced Directive on File Past Medical/Surgical History Past Medical/Surgical History: (1) Lactic acid acidosis (2) Pancreatitis, acute (3) Elevated liver function tests (4) Nausea & vomiting (5) Altered mental status (6) Gout (7) Encephalopathy acute (8) Generalized weakness (9) Hypercholesterolemia (10) Renal failure (11) Sinus tachycardia (12) Anemia (13) Failure to thrive (14) UTI (urinary tract infection) (15) Closed left ankle fracture (16) COPD (chronic obstructive pulmonary disease) (17) Sick sinus syndrome (18) Dysphagia (19) Diabetes mellitus, type II (20) Dysuria (21) Hypertension (22) Decubitus ulcer (23) DVT (deep venous thrombosis) (24) Hepatitis C (25) Fever (26) Leukocytosis (27) Transaminitis (28) Hyperglycemia (29) Toxic metabolic encephalopathy (30) High anion gap metabolic acidosis (31) Functional quadriplegia (32) Hyperbilirubinemia (33) Sepsis (34) Pacemaker (35) Uncontrolled diabetes mellitus Review of Systems Psychiatric: Reports: prior hx, anxiety, depressed feelings, hallucinations Physical Exam General Appearance: no apparent distress, alert, overweight Neurologic: alert, oriented x 3, responsive, depressed affect Last 24 Hour Vital Signs Date Time Temp Pulse Resp B/P (MAP) Pulse Ox O2 Delivery O2 Flow Rate FiO2 01/20/17 17:55 111/66 01/20/17 15:25 97.6 89 20 111/66 100 Nasal Cannula 3.0 01/20/17 12:46 108/77 01/20/17 11:48 97.5 86 21 108/77 99 Room Air 01/20/17 08:15 97.2 91 21 121/79 97 Room Air 01/20/17 07:55 88 16 Room Air 21 01/20/17 06:00 118/72 01/20/17 04:00 97.5 87 20 122/79 99 Nasal Cannula 2.0 01/20/17 00:00 128/72 01/20/17 00:00 97.8 90 20 128/72 98 Room Air Intake and Output 01/20/17 01/21/17 19:00 07:00 Intake Total 535 ml Output Total 400 ml Balance 135 ml Intake Oral 480 ml IV Total 55 ml Output Urine Total 400 ml Laboratory Tests Test 01/20/17 05:50 White Blood Count 5.9 K/UL (4.8-10.8) Red Blood Count 4.36 M/UL (4.20-5.40) Hemoglobin 12.0 G/DL (12.0-16.0) Hematocrit 36.2 % (37.0-47.0) L Mean Corpuscular Volume 83 FL (80-99) Mean Corpuscular Hemoglobin 27.5 PG (27.0-31.0) Mean Corpuscular Hemoglobin Concent 33.1 G/DL (32.0-36.0) Red Cell Distribution Width 13.2 % (11.6-14.8) Platelet Count 174 K/UL (150-450) Mean Platelet Volume 8.7 FL (6.5-10.1) Neutrophils (%) (Auto) 40.0 % (45.0-75.0) L Lymphocytes (%) (Auto) 44.0 % (20.0-45.0) Monocytes (%) (Auto) 10.1 % (1.0-10.0) H Eosinophils (%) (Auto) 4.4 % (0.0-3.0) H Basophils (%) (Auto) 1.5 % (0.0-2.0) Height (Feet): 5 Height (Inches): 6.00 Weight (Pounds): 230 Medications Current Medications Medications (Trade) Dose Ordered Sig/Joann Route PRN Reason Start Time Stop Time Status Last Admin Dose Admin Acetaminophen (Tylenol) 650 mg Q4H PRN ORAL fever 01/16/17 21:30 02/15/17 21:29 01/17/17 23:48 Albuterol/ Ipratropium (DuoNeb 0.5-3(2.5)mg/3ml) 3 ml EVERY 4 HOURS PRN HHN Shortness of Breath 01/16/17 21:30 01/21/17 21:29 Atorvastatin Calcium (Lipitor) 10 mg BEDTIME ORAL 01/17/17 21:00 02/16/17 20:59 01/20/17 20:37 Chlorhexidine Gluconate (Della-Hex 2%) 1 applic Q24HRS TOPIC 01/19/17 20:00 02/18/17 19:59 01/19/17 21:26 Dextrose (Dextrose 50%) STAT PRN IV Hypoglycemia 01/16/17 21:30 02/15/17 21:29 Diphenhydramine HCl (Benadryl) 25 mg Q6H PRN IVP Itching 01/16/17 23:00 02/15/17 22:59 Ertapenem 1 gm/ Sodium Chloride 55 ml @ 110 mls/hr Q24H IVPB 01/19/17 15:00 01/24/17 14:59 01/20/17 15:09 Gabapentin (Neurontin) 100 mg TID ORAL 01/17/17 09:00 02/16/17 08:59 01/20/17 17:54 Heparin Sodium/ Sodium Chloride (Heparin 2000 units/Ns 1000ml premix) 2,000 unit ONCE PRN INJ PICC LINE 01/20/17 07:26 01/21/17 23:59 Hydralazine HCl (Apresoline) 25 mg EVERY 6 HOURS ORAL 01/17/17 00:00 02/16/17 00:00 01/20/17 17:55 Insulin Aspart (NovoLOG) BEFORE MEALS AND HS SUBQ 01/17/17 06:30 02/16/17 06:29 01/20/17 20:42 Lidocaine HCl (Xylocaine 1% 30ml) 30 ml ONCE PRN INJ PICC LINE 01/20/17 07:26 01/21/17 23:59 Memantine (Namenda) 5 mg BID ORAL 01/17/17 09:00 02/16/17 08:59 01/20/17 17:54 Nitroglycerin (Ntg) 0.4 mg q5 mins PRN SL Prn Chest Pain 01/16/17 21:30 02/15/17 21:29 Ondansetron HCl (Zofran) 4 mg Q6H PRN IVP Nausea & Vomiting 01/16/17 21:30 02/15/17 21:29 Pantoprazole (Protonix) 40 mg DAILY ORAL 01/17/17 09:00 02/16/17 08:59 01/20/17 09:18 Polyethylene Glycol (Miralax) 17 gm DAILYPRN PRN ORAL Constipation 01/16/17 21:30 11/5/17 21:29 Rivaroxaban (Xarelto) 20 mg DAILY ORAL 01/17/17 09:00 02/16/17 08:59 01/20/17 09:18 Temazepam (Restoril) 15 mg HSPRN PRN ORAL Insomnia 01/16/17 21:30 01/23/17 21:29 Assessment/Plan Status: stable Assessment/Plan delirium encephalopathy mild -cont current meds Junior Simons M.D. Jan 20, 2017 22:48
--- NOTE | 2017-01-21 17:47 | Progress Note ---
DATE: 01/17/2017 SUBJECTIVE: The patient presented with episode of anxiety and mild impairment of concentration, memory, and attention. Waxing and waning consciousness. The patient suffering from UTI. Baseline, she is alert and oriented x4. Not agitated during my evaluation. MENTAL STATUS EXAMINATION: The patient is alert and oriented times self, place, and situation she is in. Mood is neutral. Affect is flat, congruent with mood. Thought process is concrete. Thought content, no suicidal or homicidal ideation. ASSESSMENT: 1. Encephalopathy. 2. Urinary tract infection. PLAN: We will continue current medication. Continue to follow. Junior Simons M.D. DR: JENNIFER JOB#: [id number] CC:
--- NOTE | 2017-01-22 13:21 | Discharge Summary ---
Discharge Summary Hospital Course Date of Admission Jan 16, 2017 at 19:48 Date of Discharge Jan 20, 2017 at 22:00 Admitting Diagnosis urinary tract infection HPI Amol Serrano is a 76 year old female who was admitted on Jan 16, 2017 at 19: 48 for Urinary Tract Infection Hospital Course [id number] Discharge Discharge Disposition Patient was discharged to Home with Home Health(06) Discharge Diagnoses: Delmi Graham NP Jan 22, 2017 13:21
--- NOTE | 2017-01-22 23:11 | Cardiology Report ---
APPROVED REPORT EKG Measurement Heart [id number] Atrial fibrillation with ventricular pacing Abnormal ECG
--- NOTE | 2017-01-23 02:02 | Discharge Summary 2 SIG ---
DATE OF ADMISSION: 01/16/2017 DATE OF DISCHARGE: 01/20/2017 CONSULTANTS: 1. Junior Simons M.D. 2. Lila Gonzalez M.D. 3. Chelsea Telles M.D. BRIEF HOSPITAL COURSE: The patient is a 76-year-old female, who presented with a chief complaint of burning on urination for two to three days. The patient denied fevers or chills. On evaluation at ED, blood work did not show leukocytosis, however, urine was grossly infected. Urine WBC too many to count and urine RBC 30 to 40 with 2+ leukocyte esterase and positive nitrite. She was pancultured and was given meropenem. She was previously admitted in August for sepsis secondary to ESBL bacteremia and urinary tract infection. She also complained of pain on the left ankle. X-ray showed severe osteopenia and soft tissue swelling. There was no evidence of displaced fracture or dislocation. Chest x-ray done showed no acute cardiopulmonary disease. She was admitted for urinary tract infection. She was followed by Infectious Disease specialist. The patient was placed on cefepime. Urine culture showed growth of multi-drug resistant E. coli. Cefepime was discontinued and was given ertapenem for ESBL urinary tract infection. She came in with a sacral stage III pressure ulcer and bilateral buttock full-thickness scar. She was given wound care. The patient had episodes of confusion and disorientation. Psychiatric evaluation was done. The patient was assessed to have mild encephalopathy and delirium. She was continued on Namenda. Repeat blood culture did not isolate any growth. PICC line was placed and the patient was discharged home with home health to continue IV ertapenem for 10 more days. FINAL DIAGNOSES: 1. Urinary tract infection with multi-drug resistant Escherichia coli. 2. Sick sinus syndrome, status post pacemaker. 3. Diabetes mellitus type 2. 4. Hypertension. 5. Chronic obstructive pulmonary disease. 6. Dysphagia. 7. Sacral stage III pressure ulcer, present on admission. DISCHARGE DISPOSITION: The patient was discharged home with home health. DISCHARGE MEDICATIONS: Refer to medication list. ACTIVITY: As tolerated. Wilder Colin M.D. I have been assigned to dictate discharge summary on this account and I was not involved in the patient's management. Delmi Graham N.P. DR: YORDAN JOB#: [id number] CC: BLANCA
== END 2017-01-20 22:00 | disposition home health service (06) | DRG 689 ==
LOC: EDBD 16:51 → EDSEX 16:51 → EMR 17:45 → 4E 19:48 → EDBEDREQSVC 19:57 → EDBEDREQ 19:57
PROC: 02HV33Z Insertion of Infusion Device into Superior Vena Cava, Percutaneous Approach (ICD-10-PCS; principal; 2017-01-20)
DX: N39.0 Urinary tract infection, site not specified (principal); L89.153 Pressure ulcer of sacral region, stage 3; G93.40 Encephalopathy, unspecified; J44.9 Chronic obstructive pulmonary disease, unspecified; E11.9 Type 2 diabetes mellitus without complications; I10 Essential (primary) hypertension; B96.20 Unspecified Escherichia coli [E. coli] as the cause of diseases classified elsewhere; R13.10 Dysphagia, unspecified; B19.20 Unspecified viral hepatitis C without hepatic coma; E66.9 Obesity, unspecified; S82.892D Other fracture of left lower leg, subsequent encounter for closed fracture with routine healing; Z95.0 Presence of cardiac pacemaker; Z79.4 Long term (current) use of insulin; Z88.6 Allergy status to analgesic agent; Z88.1 Allergy status to other antibiotic agents; Z88.0 Allergy status to penicillin; Z16.24 Resistance to multiple antibiotics; Z86.73 Personal history of transient ischemic attack (TIA), and cerebral infarction without residual deficits; Z86.718 Personal history of other venous thrombosis and embolism; Z79.01 Long term (current) use of anticoagulants; R41.0 Disorientation, unspecified; G31.84 Mild cognitive impairment of uncertain or unknown etiology
CPT/HCPCS: 36415; 36569; 71010; 76937; 80048; 80053; 80202; 81001; 81003; 82962; 85025; 87040; 87081; 87086; 87181; 93005; 94664; 99285; J1815

== ENCOUNTER 2017-02-06 17:28 | Inpatient (IN) | payer MEDICARE, MEDICAID ==
[~2017-02-06] VITALS: Ht 167.6 cm; Wt 74.8 kg
[2017-02-06 17:31] VITALS: BP 144/105
--- NOTE | 2017-02-06 17:52 | Emergency Room Report ---
History of Present Illness General Chief Complaint: General Complaint Source: Patient Present Illness HPI [id number] BIBEMS from home - states "my doctor advised me to go to ER" for 1x instance of blood in urine today Denies being on ASA, blood thinners Denies abd pain, nausea/vomiting C/o pain to back - has "bed sores." Blood Cx 20 days ago were negative Urinx Cx + for E-coli Allergies: Coded Allergies: ERYTHROMYCIN BASE (Verified Allergy, Intermediate, 08/28/16) CODEINE (Verified Allergy, Unknown, 08/28/16) MEPERIDINE (Verified Allergy, Unknown, 08/28/16) PENICILLINS (Verified Allergy, Unknown, 08/28/16) Patient History Past Medical History: see triage record, old chart reviewed Past Surgical History: none Pertinent Family History: none Social History: Denies: smoking, alcohol use, drug use Now: No Immunizations: UTD Reviewed Nursing Documentation: PMH: Agreed, PSxH: Agreed Nursing Documentation-PMH Past Medical History: No History, Except For Hx Cardiac Problems: Yes Hx Hypertension: Yes Hx Pacemaker: Yes - left chest Hx Asthma: Yes Hx COPD: Yes Hx Diabetes: Yes Hx Cancer: No Hx Gastrointestinal Problems: Yes Hx Neurological Problems: Yes Hx Dementia: Yes Hx Weakness: Yes Review of Systems All Other Systems: negative except mentioned in HPI Physical Exam Vital Signs Date Time Temp Pulse Resp B/P (MAP) Pulse Ox O2 Delivery O2 Flow Rate FiO2 02/06/17 17:21 98.1 88 18 161/101 98 Room Air Sp02 EP Interpretation: reviewed, normal General Appearance: normal inspection, well appearing, no apparent distress, alert, GCS 15, non-toxic, obese Head: normocephalic, atraumatic Eyes: bilateral eye PERRL, bilateral eye EOMI ENT: normal ENT inspection, hearing grossly normal, normal voice Neck: normal inspection, full range of motion, supple, no bony tend Respiratory: normal inspection, lungs clear, normal breath sounds, no respiratory distress, no retraction, no wheezing Cardiovascular #1: regular rate, rhythm, no edema Gastrointestinal: normal inspection, normal bowel sounds, non tender, soft, no guarding, no hernia Genitourinary: no CVA tenderness Musculoskeletal: normal inspection, back normal, normal range of motion, Lorne' s Sign negative Neurologic: normal inspection, alert, oriented x3, responsive, windows admin III-XII nml as tested, speech normal Psychiatric: normal inspection, judgement/insight normal, mood/affect normal Skin: normal inspection, normal color, no rash Medical Decision Making Diagnostic Impression: Primary Impression: Hematuria Qualified Codes: R31.0 - Gross hematuria Additional Impression: UTI (urinary tract infection) Qualified Codes: N30.01 - Acute cystitis with hematuria ER Course VSS. Afebrile. Not septic appearing Labs: nitrite+ UTI. H&h stable. No leuks Per last Urine Cx is resistant to any oral Abx Is susceptible to imipenem. Gave dose of meropenem in ED Endorsed to Dr Echevarria for med/surg admit at 825pm Rhythm Strip Diag. Results EP Interpretation: yes Rate: 95 Rhythm: NSR, no PVC's, no ectopy Last Vital Signs Date Time Temp Pulse Resp B/P (MAP) Pulse Ox O2 Delivery O2 Flow Rate FiO2 02/06/17 17:31 98.1 18 144/105 100 Room Air 02/06/17 17:21 88 Status: improved Disposition: ADMITTED INPATIENT Condition: Serious DEREK ANNE M.D. Feb 06, 2017 17:52
[2017-02-06 18:18] LABS: BASOPHILS % (AUTO) 1.8 % (0.0-2.0); EOSINOPHILS % (AUTO) 4.1 % (0.0-3.0); LYMPHOCYTES % (AUTO) 20.6 % (20.0-45.0); MEAN CORPUSCULAR HEMOGLOBIN 25.6 PG (27.0-31.0); MEAN CORPUSCULAR HGB CONC 30.5 G/DL (32.0-36.0); MEAN CORPUSCULAR VOLUME 84 FL (80-99); MONOCYTES % (AUTO) 7.4 % (1.0-10.0); NEUTROPHILS % (AUTO) 66.1 % (45.0-75.0); PLATELET COUNT 166 K/UL (150-450); RED BLOOD COUNT 4.47 M/UL (4.20-5.40); RED CELL DISTRIBUTION WIDTH 13.8 % (11.6-14.8); WHITE BLOOD COUNT 7.2 K/UL (4.8-10.8)
[2017-02-06 18:22] LABS: INR 1.1 (0.9-1.1); PROTHROMBIN TIME 11.1 SEC (9.30-11.50)
[2017-02-06 19:16] LABS: ALANINE AMINOTRANSFERASE 26 U/L (12-78); ALBUMIN/GLOBULIN RATIO 0.8 (1.0-2.7); ANION GAP 12 mmol/L (5-15); ASPARTATE AMINO TRANSFERASE 29 U/L (15-37); CALCIUM 9.2 MG/DL (8.5-10.1); CARBON DIOXIDE 24 MMOL/L (21-32); CHLORIDE 106 MMOL/L (98-107); CREATININE 0.8 MG/DL (0.55-1.30); POTASSIUM 3.4 MMOL/L (3.5-5.1); SODIUM 142 MMOL/L (136-145); TOTAL PROTEIN 7.4 G/DL (6.4-8.2)
[2017-02-06 19:17] LABS: APPEARANCE,URINE CLOUDY; KETONES,URINE NEGATIVE (NEGATIVE); LEUKOCYTE ESTERASE ,URINE 3+ (NEGATIVE); NITRITE,URINE POSITIVE (NEGATIVE); PH,URINE 8 (4.5-8.0); PROTEIN,URINE 3+ (NEGATIVE); UROBILINOGEN,URINE 1 MG/DL (0.0-1.0)
[2017-02-06 19:25] LABS: WBC,URINE 20-30 /HPF (0 - 2)
[2017-02-06 19:26] LABS: BACTERIA,URINE MANY /HPF; SQUAMOUS EPITHELIAL CELL,UR OCCASIONAL /LPF (NONE/OCC); TRIPLE PHOSPHATE CRYSTAL,UR FEW /LPF
[2017-02-06 19:31] VITALS: BP 105/59
[2017-02-06] MEDS ORDERED: cefTRIAXone 1 GM in NS 55 ML IVPB ONE (20:00)
[2017-02-06 20:14] LABS: BILIRUBIN,DIRECT 0.3 MG/DL (0.0-0.3)
[2017-02-06] MEDS ORDERED: Meropenem 1 GM in NS 110 ML IVPB ONE (20:30)
[2017-02-06] MEDS ORDERED: Meropenem 1gm vial ONE (20:33)
[2017-02-06] MEDS ORDERED: Norco 5mg/325mg tab ORAL PRN (21:30)
[2017-02-06 22:34] VITALS: BP 133/85
[2017-02-07] MEDS: HydrALAZINE 10mg Tab ORAL SCH ×3 (00:25→12:56)
[2017-02-07 04:00] VITALS: BP 120/66
[2017-02-07] MEDS: NovoLOG Insulin Flexpen SUBQ SCH ×4 (06:07→21:00)
[2017-02-07 08:53] LABS: BASOPHILS % (AUTO) 1.1 % (0.0-2.0); EOSINOPHILS % (AUTO) 6.3 % (0.0-3.0); LYMPHOCYTES % (AUTO) 25.6 % (20.0-45.0); MEAN CORPUSCULAR HEMOGLOBIN 27.5 PG (27.0-31.0); MEAN CORPUSCULAR HGB CONC 33.1 G/DL (32.0-36.0); MEAN CORPUSCULAR VOLUME 83 FL (80-99); MEAN PLATELET VOLUME 9.6 FL (6.5-10.1); MONOCYTES % (AUTO) 10.3 % (1.0-10.0); NEUTROPHILS % (AUTO) 56.7 % (45.0-75.0); PLATELET COUNT 176 K/UL (150-450); RED BLOOD COUNT 4.13 M/UL (4.20-5.40); RED CELL DISTRIBUTION WIDTH 13.9 % (11.6-14.8); WHITE BLOOD COUNT 6.1 K/UL (4.8-10.8)
[2017-02-07 09:00] VITALS: BP 117/78
[2017-02-07] MEDS ORDERED: Memantine 10mg tab ORAL SCH (09:00)
[2017-02-07] MEDS ORDERED: Verapamil SR 240mg tab ORAL SCH (09:00)
[2017-02-07] MEDS: Verapamil SR 240mg tab ORAL SCH ×2 (09:00→10:03)
[2017-02-07 09:13] LABS: ALANINE AMINOTRANSFERASE 23 U/L (12-78); ALBUMIN/GLOBULIN RATIO 0.8 (1.0-2.7); ANION GAP 10 mmol/L (5-15); ASPARTATE AMINO TRANSFERASE 23 U/L (15-37); CALCIUM 8.7 MG/DL (8.5-10.1); CARBON DIOXIDE 25 MMOL/L (21-32); CHLORIDE 109 MMOL/L (98-107); CREATININE 0.7 MG/DL (0.55-1.30); MAGNESIUM 1.4 MG/DL (1.8-2.4); POTASSIUM 3.8 MMOL/L (3.5-5.1); SODIUM 144 MMOL/L (136-145); TOTAL PROTEIN 6.8 G/DL (6.4-8.2)
[2017-02-07] MEDS: Dyna-Hex 2% Top Sol 2oz TOPIC SCH (10:01)
[2017-02-07] MEDS: Spironolactone 25mg tab ORAL SCH (10:02)
[2017-02-07] MEDS: metFORMIN 500mg tab ORAL SCH ×2 (10:02→18:32)
[2017-02-07] MEDS: Montelukast 10mg tablet ORAL SCH (10:02)
[2017-02-07] MEDS: Furosemide 40mg tab ORAL SCH (10:04)
[2017-02-07] MEDS: Docusate 100mg cap ORAL SCH ×2 (10:04→20:57)
[2017-02-07] MEDS: Cefepime HCl 1 GM in D5W 55 ML IVPB SCH ×2 (11:00→20:57)
[2017-02-07] MEDS: KCl 10% 20 mEq/15ml liquid ORAL SCH (11:46)
--- NOTE | 2017-02-07 11:51 | Consultation ---
History of Present Illness General Date patient seen: Feb 07, 2017 Chief Complaint: General Complaint Reason for Consultation: inpatient management Present Illness HPI 76 year old female with hx of Urinary tract infection with multi-drug resistant Escherichia coli, Sick sinus syndrome, status post pacemaker, Diabetes mellitus type 2. Chronic obstructive pulmonary disease, Sacral stage III pressure ulcer, present on admission recently discharged from [facility], presenting with hematuria and stating that her doctor told her to come to ER. Pt is admitted b/o MDR UTI causing hematuria. Allergies: Coded Allergies: ERYTHROMYCIN BASE (Verified Allergy, Intermediate, 08/28/16) CODEINE (Verified Allergy, Unknown, 08/28/16) MEPERIDINE (Verified Allergy, Unknown, 08/28/16) PENICILLINS (Verified Allergy, Unknown, 08/28/16) Medication History Scheduled Atorvastatin Calcium* (Lipitor*), 10 MG ORAL BEDTIME, (Reported) Docusate Sodium* (Colace*), 100 MG ORAL EVERY 12 HOURS Ertapenem Sodium* (INVanz*), 1 GM IVPB Q24H Furosemide* (Lasix*), 40 MG ORAL DAILY Gabapentin* (Gabapentin*), 100 MG ORAL TID Gabapentin* (Gabapentin*), 300 MG ORAL BID, (Reported) Hydralazine HCl (Hydralazine HCl), 25 MG ORAL EVERY 6 HOURS, (Reported) Insulin Aspart (Novolog Flexpen), 0 UNITS SUBQ BEFORE MEALS AND HS Memantine Hcl* (Namenda*), 5 MG ORAL BID, (Reported) Metformin Hcl* (Metformin Hcl*), 500 MG ORAL TWICE A DAY, (Reported) Montelukast Sodium* (Montelukast Sodium*), 10 MG ORAL DAILY, (Reported) Pantoprazole* (Protonix*), 40 MG ORAL DAILY Potassium Chloride (Potassium Chloride), 10 MEQ ORAL DAILY Rivaroxaban (Xarelto*), 20 MG ORAL DAILY Spironolactone (Aldactone), 25 MG ORAL DAILY Verapamil Hcl* (Calan Sr*), 250 MG ORAL DAILY, (Reported) Scheduled PRN Acetaminophen* (Acetaminophen 325MG Tablet*), 650 MG ORAL Q4H PRN for Mild Pain / TEMP>101 Ibuprofen* (Motrin*), 200 MG ORAL Q4HR PRN for For Pain, (Reported) Miscellaneous Medications Ipratropium/Albuterol Sulfate (DuoNeb 0.5-3(2.5)mg/3ml), 3 ML HHN, (Reported) Unable to Obtain Medications (Unable To Obtain Meds), (Reported) Patient History Healthcare decision maker Resuscitation status Full Code Advanced Directive on File Past Medical/Surgical History Past Medical/Surgical History: (1) Pacemaker (2) UTI (urinary tract infection) (3) Hypertension (4) Gout (5) Anemia (6) Hepatitis C (7) COPD (chronic obstructive pulmonary disease) Review of Systems Constitutional: Reports: weakness Genitourinary: Reports: dysuria, hematuria All Other Systems: negative except mentioned in HPI Physical Exam General Appearance: WD/WN, alert Lines, tubes and drains: peripheral HEENT: normocephalic, atraumatic, PERRL Neck: non-tender, normal alignment Respiratory/Chest: chest wall non-tender, lungs clear Cardiovascular/Chest: normal peripheral pulses, normal rate Abdomen: normal bowel sounds, non tender Genitourinary/Rectal: normal genital exam, heme negative stool Extremities: non-tender Last 24 Hour Vital Signs Date Time Temp Pulse Resp B/P (MAP) Pulse Ox O2 Delivery O2 Flow Rate FiO2 02/07/17 09:00 98.2 87 20 117/78 100 Nasal Cannula 2.0 02/07/17 09:00 96 115/81 02/07/17 06:00 115/81 02/07/17 04:00 97.3 96 20 120/66 99 Nasal Cannula 1.0 02/07/17 00:25 120/89 02/06/17 22:40 98.1 95 23 133/85 100 Room Air 02/06/17 22:34 98.1 95 23 133/85 100 Room Air 02/06/17 19:31 98.1 77 11 105/59 95 Room Air 02/06/17 17:31 98.1 18 144/105 100 Room Air 02/06/17 17:21 98.1 88 18 161/101 98 Room Air Laboratory Tests Test 02/06/17 17:57 02/06/17 18:43 02/07/17 07:06 White Blood Count 7.2 K/UL (4.8-10.8) 6.1 K/UL (4.8-10.8) Red Blood Count 4.47 M/UL (4.20-5.40) 4.13 M/UL (4.20-5.40) L Hemoglobin 11.5 G/DL (12.0-16.0) L 11.3 G/DL (12.0-16.0) L Hematocrit 37.6 % (37.0-47.0) 34.3 % (37.0-47.0) L Mean Corpuscular Volume 84 FL (80-99) 83 FL (80-99) Mean Corpuscular Hemoglobin 25.6 PG (27.0-31.0) L 27.5 PG (27.0-31.0) Mean Corpuscular Hemoglobin Concent 30.5 G/DL (32.0-36.0) L 33.1 G/DL (32.0-36.0) Red Cell Distribution Width 13.8 % (11.6-14.8) 13.9 % (11.6-14.8) Platelet Count 166 K/UL (150-450) 176 K/UL (150-450) Mean Platelet Volume 8.0 FL (6.5-10.1) 9.6 FL (6.5-10.1) Neutrophils (%) (Auto) 66.1 % (45.0-75.0) 56.7 % (45.0-75.0) Lymphocytes (%) (Auto) 20.6 % (20.0-45.0) 25.6 % (20.0-45.0) Monocytes (%) (Auto) 7.4 % (1.0-10.0) 10.3 % (1.0-10.0) H Eosinophils (%) (Auto) 4.1 % (0.0-3.0) H 6.3 % (0.0-3.0) H Basophils (%) (Auto) 1.8 % (0.0-2.0) 1.1 % (0.0-2.0) Prothrombin Time 11.1 SEC (9.30-11.50) Prothromb Time International Ratio 1.1 (0.9-1.1) Sodium Level 142 MMOL/L (136-145) 144 MMOL/L (136-145) Potassium Level 3.4 MMOL/L (3.5-5.1) L 3.8 MMOL/L (3.5-5.1) Chloride Level 106 MMOL/L (98-107) 109 MMOL/L (98-107) H Carbon Dioxide Level 24 MMOL/L (21-32) 25 MMOL/L (21-32) Anion Gap 12 mmol/L (5-15) 10 mmol/L (5-15) Blood Urea Nitrogen 18 mg/dL (7-18) 18 mg/dL (7-18) Creatinine 0.8 MG/DL (0.55-1.30) 0.7 MG/DL (0.55-1.30) Estimat Glomerular Filtration Rate mL/min (>60) mL/min (>60) Glucose Level 195 MG/DL (74-106) H 127 MG/DL (74-106) H Calcium Level 9.2 MG/DL (8.5-10.1) 8.7 MG/DL (8.5-10.1) Total Bilirubin 1.3 MG/DL (0.2-1.0) H 0.7 MG/DL (0.2-1.0) Direct Bilirubin 0.3 MG/DL (0.0-0.3) Aspartate Amino Transf (AST/SGOT) 29 U/L (15-37) 23 U/L (15-37) Alanine Aminotransferase (ALT/SGPT) 26 U/L (12-78) 23 U/L (12-78) Alkaline Phosphatase 107 U/L (46-116) 93 U/L (46-116) Total Protein 7.4 G/DL (6.4-8.2) 6.8 G/DL (6.4-8.2) Albumin 3.3 G/DL (3.4-5.0) L 3.0 G/DL (3.4-5.0) L Globulin 4.1 g/dL 3.8 g/dL Albumin/Globulin Ratio 0.8 (1.0-2.7) L 0.8 (1.0-2.7) L Urine Color Yellow Urine Appearance Cloudy Urine pH 8 (4.5-8.0) Urine Specific [place] 1.015 (1.005-1.035) Urine Protein 3+ (NEGATIVE) H Urine Glucose (UA) Negative (NEGATIVE) Urine Ketones Negative (NEGATIVE) Urine Occult Blood 5+ (NEGATIVE) H Urine Nitrite Positive (NEGATIVE) H Urine Bilirubin Negative (NEGATIVE) Urine Urobilinogen 1 MG/DL (0.0-1.0) H Urine Leukocyte Esterase 3+ (NEGATIVE) H Urine RBC 2-4 /HPF (0 - 2) H Urine WBC 20-30 /HPF (0 - 2) H Urine Squamous Epithelial Cells Occasional /LPF Urine Triple Phosphate Crystals Few /LPF (NONE) H Urine Bacteria Many /HPF (NONE) H Phosphorus Level 4.0 MG/DL (2.5-4.9) Magnesium Level 1.4 MG/DL (1.8-2.4) L Height (Feet): 5 Height (Inches): 6.00 Weight (Pounds): 165 Medications Current Medications Medications (Trade) Dose Ordered Sig/Joann Route PRN Reason Start Time Stop Time Status Last Admin Dose Admin Acetaminophen (Tylenol) 650 mg Q4H PRN ORAL Mild Pain / TEMP>101 02/06/17 22:00 03/08/17 21:59 Acetaminophen/ Hydrocodone Bitart ([place] 5/325) 1 tab Q6H PRN ORAL For Pain 02/06/17 21:30 02/13/17 21:29 Future Hold Atorvastatin Calcium (Lipitor) 10 mg BEDTIME ORAL 02/07/17 21:00 03/09/17 20:59 Cefepime HCl 1 gm/ Dextrose 55 ml @ 110 mls/hr EVERY 12 HOURS IVPB 02/07/17 09:00 02/14/17 08:59 02/07/17 11:00 Chlorhexidine Gluconate (Della-Hex 2%) 1 applic DAILY TOPIC 02/07/17 09:00 03/09/17 08:59 02/07/17 10:01 Dextrose (Dextrose 50%) STAT PRN IV Hypoglycemia 02/06/17 21:30 03/08/17 21:29 Docusate Sodium (Colace) 100 mg EVERY 12 HOURS ORAL 02/07/17 09:00 03/09/17 08:59 02/07/17 10:04 Furosemide (Lasix) 40 mg DAILY ORAL 02/07/17 09:00 03/09/17 08:59 02/07/17 10:04 Gabapentin (Neurontin) 100 mg TID ORAL 02/07/17 09:00 03/09/17 08:59 02/07/17 10:04 Hydralazine HCl (Apresoline) 25 mg EVERY 6 HOURS ORAL 02/07/17 00:00 03/09/17 00:00 02/07/17 00:25 Insulin Aspart (NovoLOG) BEFORE MEALS AND HS SUBQ 02/07/17 06:30 03/09/17 06:29 02/07/17 06:07 Memantine (Namenda) 5 mg BID ORAL 02/07/17 09:00 03/09/17 08:59 02/07/17 10:03 Metformin HCl (Glucophage) 500 mg TWICE A DAY ORAL 02/07/17 09:00 03/09/17 08:59 02/07/17 10:02 Montelukast Sodium (Singulair) 10 mg DAILY ORAL 02/07/17 09:00 03/09/17 08:59 02/07/17 10:02 Pantoprazole (Protonix) 40 mg DAILY ORAL 02/07/17 09:00 03/09/17 08:59 02/07/17 10:02 Potassium Chloride (KCl 10% 20 mEq oral solution) 10 meq DAILY ORAL 02/07/17 09:00 03/09/17 08:59 Spironolactone (Aldactone) 25 mg DAILY ORAL 02/07/17 09:00 03/09/17 08:59 02/07/17 10:02 Verapamil HCl (Calan SR) 240 mg DAILY ORAL 02/07/17 09:00 03/09/17 08:59 Assessment/Plan Problem List: (1) Hematuria ICD Codes: R31.9 - Hematuria, unspecified SNOMED: 59964972 Qualifiers: Qualified Codes: R31.0 - Gross hematuria (2) Sepsis ICD Codes: A41.9 - Sepsis, unspecified organism SNOMED: 38700655 (3) UTI (urinary tract infection) ICD Codes: N39.0 - Urinary tract infection, site not specified SNOMED: 07050202 Qualifiers: Qualified Codes: N30.01 - Acute cystitis with hematuria (4) COPD (chronic obstructive pulmonary disease) ICD Codes: J44.9 - Chronic obstructive pulmonary disease, unspecified SNOMED: 93329302 (5) Pacemaker ICD Codes: Z95.0 - Presence of cardiac pacemaker SNOMED: 481253921 (6) Hepatitis C ICD Codes: B19.20 - Unspecified viral hepatitis C without hepatic coma SNOMED: 21418659 Assessment/Plan check Urine IV abx symptomatic treatment sliding scale respiratory treatment. JONH RODRIGUEZ Feb 07, 2017 11:50
[2017-02-07 12:56] VITALS: BP 138/9
--- NOTE | 2017-02-07 14:18 | History & Physical ---
History and Physical History & Physicial Dictated for IInt Med-Dr Echevarria no. [id number] CHEMA VÁZQUEZ Feb 07, 2017 14:18
--- NOTE | 2017-02-07 14:30 | Cardiac Electrophysiology PN ---
Subjective Subjective [id number] Objective Last 24 Hour Vital Signs Date Time Temp Pulse Resp B/P (MAP) Pulse Ox O2 Delivery O2 Flow Rate FiO2 02/07/17 12:56 98.2 91 18 138/9 95 Nasal Cannula 3.0 02/07/17 12:56 138/97 02/07/17 09:00 98.2 87 20 117/78 100 Nasal Cannula 2.0 02/07/17 09:00 96 115/81 02/07/17 06:00 115/81 02/07/17 04:00 97.3 96 20 120/66 99 Nasal Cannula 1.0 02/07/17 00:25 120/89 02/06/17 22:40 98.1 95 23 133/85 100 Room Air 02/06/17 22:34 98.1 95 23 133/85 100 Room Air 02/06/17 19:31 98.1 77 11 105/59 95 Room Air 02/06/17 17:31 98.1 18 144/105 100 Room Air 02/06/17 17:21 98.1 88 18 161/101 98 Room Air Laboratory Tests Test 02/06/17 17:57 02/06/17 18:43 02/07/17 07:06 White Blood Count 7.2 K/UL (4.8-10.8) 6.1 K/UL (4.8-10.8) Red Blood Count 4.47 M/UL (4.20-5.40) 4.13 M/UL (4.20-5.40) L Hemoglobin 11.5 G/DL (12.0-16.0) L 11.3 G/DL (12.0-16.0) L Hematocrit 37.6 % (37.0-47.0) 34.3 % (37.0-47.0) L Mean Corpuscular Volume 84 FL (80-99) 83 FL (80-99) Mean Corpuscular Hemoglobin 25.6 PG (27.0-31.0) L 27.5 PG (27.0-31.0) Mean Corpuscular Hemoglobin Concent 30.5 G/DL (32.0-36.0) L 33.1 G/DL (32.0-36.0) Red Cell Distribution Width 13.8 % (11.6-14.8) 13.9 % (11.6-14.8) Platelet Count 166 K/UL (150-450) 176 K/UL (150-450) Mean Platelet Volume 8.0 FL (6.5-10.1) 9.6 FL (6.5-10.1) Neutrophils (%) (Auto) 66.1 % (45.0-75.0) 56.7 % (45.0-75.0) Lymphocytes (%) (Auto) 20.6 % (20.0-45.0) 25.6 % (20.0-45.0) Monocytes (%) (Auto) 7.4 % (1.0-10.0) 10.3 % (1.0-10.0) H Eosinophils (%) (Auto) 4.1 % (0.0-3.0) H 6.3 % (0.0-3.0) H Basophils (%) (Auto) 1.8 % (0.0-2.0) 1.1 % (0.0-2.0) Prothrombin Time 11.1 SEC (9.30-11.50) Prothromb Time International Ratio 1.1 (0.9-1.1) Sodium Level 142 MMOL/L (136-145) 144 MMOL/L (136-145) Potassium Level 3.4 MMOL/L (3.5-5.1) L 3.8 MMOL/L (3.5-5.1) Chloride Level 106 MMOL/L (98-107) 109 MMOL/L (98-107) H Carbon Dioxide Level 24 MMOL/L (21-32) 25 MMOL/L (21-32) Anion Gap 12 mmol/L (5-15) 10 mmol/L (5-15) Blood Urea Nitrogen 18 mg/dL (7-18) 18 mg/dL (7-18) Creatinine 0.8 MG/DL (0.55-1.30) 0.7 MG/DL (0.55-1.30) Estimat Glomerular Filtration Rate mL/min (>60) mL/min (>60) Glucose Level 195 MG/DL (74-106) H 127 MG/DL (74-106) H Calcium Level 9.2 MG/DL (8.5-10.1) 8.7 MG/DL (8.5-10.1) Total Bilirubin 1.3 MG/DL (0.2-1.0) H 0.7 MG/DL (0.2-1.0) Direct Bilirubin 0.3 MG/DL (0.0-0.3) Aspartate Amino Transf (AST/SGOT) 29 U/L (15-37) 23 U/L (15-37) Alanine Aminotransferase (ALT/SGPT) 26 U/L (12-78) 23 U/L (12-78) Alkaline Phosphatase 107 U/L (46-116) 93 U/L (46-116) Total Protein 7.4 G/DL (6.4-8.2) 6.8 G/DL (6.4-8.2) Albumin 3.3 G/DL (3.4-5.0) L 3.0 G/DL (3.4-5.0) L Globulin 4.1 g/dL 3.8 g/dL Albumin/Globulin Ratio 0.8 (1.0-2.7) L 0.8 (1.0-2.7) L Urine Color Yellow Urine Appearance Cloudy Urine pH 8 (4.5-8.0) Urine Specific [place] 1.015 (1.005-1.035) Urine Protein 3+ (NEGATIVE) H Urine Glucose (UA) Negative (NEGATIVE) Urine Ketones Negative (NEGATIVE) Urine Occult Blood 5+ (NEGATIVE) H Urine Nitrite Positive (NEGATIVE) H Urine Bilirubin Negative (NEGATIVE) Urine Urobilinogen 1 MG/DL (0.0-1.0) H Urine Leukocyte Esterase 3+ (NEGATIVE) H Urine RBC 2-4 /HPF (0 - 2) H Urine WBC 20-30 /HPF (0 - 2) H Urine Squamous Epithelial Cells Occasional /LPF Urine Triple Phosphate Crystals Few /LPF (NONE) H Urine Bacteria Many /HPF (NONE) H Phosphorus Level 4.0 MG/DL (2.5-4.9) Magnesium Level 1.4 MG/DL (1.8-2.4) JAMAAL GUSMAN Feb 07, 2017 14:30
[2017-02-07 16:00] VITALS: BP 114/64
[2017-02-07] MEDS: HydrALAZINE 25mg tab ORAL SCH ×2 (18:00→23:57)
[2017-02-07] MEDS: Memantine 5 MG TAB ORAL SCH (18:32)
[2017-02-07 20:00] VITALS: BP 117/64
--- NOTE | 2017-02-07 23:30 | History and Physical Report ---
DATE OF ADMISSION: 02/06/2017 CHIEF COMPLAINT: The patient is a 76-year-old -[place] female, who presents with chief complaint of "blood" in her urine. HISTORY OF PRESENT ILLNESS: The patient was admitted to [facility] from 01/16/2017 through 01/20/2017. The patient was admitted for urinary tract infection with multi-drug resistant Escherichia coli at that time. The patient presented to [facility] Emergency Room on 02/06/2017 complaining of "blood" in the urine. This happened one time. The patient was admitted for hematuria to rule out acute urinary tract infection. PAST MEDICAL HISTORY: Significant for: 1. Sick sinus syndrome. 2. Hypercholesterolemia. 3. Hypertension. 4. Chronic obstructive pulmonary disease. 5. Dysphagia. 6. Diabetes type 2. 7. History of right ankle fracture. 8. History of left ankle fracture. PAST SURGICAL HISTORY: Significant for pacemaker implantation in the left anterior chest wall. CURRENT MEDICATIONS: 1. Lipitor 10 mg one tablet p.o. nightly. 2. Furosemide 40 mg one tablet p.o. daily. 3. Gabapentin 100 mg one tablet p.o. three times daily. 4. Hydralazine 25 mg one tablet p.o. q.6 h. 5. NovoLog sliding scale. 6. DuoNeb nebulizer q.4 h. p.r.n. 7. Namenda 5 mg one tablet p.o. twice daily. 8. Metformin 500 mg one tablet p.o. twice daily. 9. Singulair 10 mg one tablet p.o. nightly. 10. Protonix 40 mg one tablet p.o. daily. 11. Potassium chloride 10 mEq p.o. daily. 12. Xarelto 10 mg one tablet p.o. daily. 13. Spironolactone 25 mg one tablet p.o. daily. 14. Verapamil 240 mg p.o. daily. ALLERGIES: 1. Codeine. 2. Erythromycin. 3. Demerol. 4. Penicillin. SOCIAL HISTORY: The patient is . The patient denies tobacco or alcohol use. REVIEW OF SYSTEMS: CONSTITUTIONAL: The patient denies weight loss or weight gain. The patient denies fevers or chills. HEENT: The patient denies ear or throat pain. The patient denies headache. CARDIOVASCULAR: The patient denies palpitations or chest pain. CHEST: The patient denies wheeze or shortness of breath. ABDOMINAL: The patient denies nausea, vomiting, diarrhea, or constipation. GENITOURINARY: The patient complains of hematuria as above. The patient denies dysuria or increased frequency of urination. PHYSICAL EXAMINATION: VITAL SIGNS: Temperature 98.1 degrees, respirations 22, pulse 95, and blood pressure 132/85. GENERAL: The patient is well-developed, well-nourished, -[place] female, in no apparent distress. HEENT: Eyes: Pupils equal and responsive to light and accommodation. Extraocular movements are intact. NECK: Supple without lymphadenopathy. CHEST: Lungs are clear to auscultation bilaterally without wheezes or rales. CARDIOVASCULAR: Regular rate. S1 and S2 are normal without murmurs, rubs, or gallops. ABDOMEN: Soft, nontender, and nondistended. Positive bowel sounds. No evidence of hepatosplenomegaly. Currently, no rebound or guarding noted. RECTAL: Refused. GENITALIA: Refused. EXTREMITIES: Negative for clubbing, cyanosis, or edema. NEUROLOGIC: Cranial nerves II to XII are grossly intact without focal deficits. Motor strength is 5/5 bilaterally intact. Deep tendon reflexes 2+ plantar. LABORATORY STUDIES: WBC 7.8, hemoglobin 9.5, hematocrit 37.6, and platelets 166,000. Sodium 142, potassium 3.4, chloride 106, CO2 24, BUN 18, creatinine 0.8, and glucose 195. Urinalysis showed 3+ protein, 5+ occult blood, nitrite positive, and 3+ leukocyte esterase with 20 to 30 WBC. ProTime 11.1 and INR 1.1. ASSESSMENT: This is a 76-year-old -[place] female. 1. Hematuria. 2. Probable urinary tract infection. 3. Sick sinus syndrome. 4. Hypercholesterolemia. 5. Hypertension. 6. Chronic obstructive pulmonary disease. 7. Diabetes type 2. 8. History of dysphagia. TREATMENT: 1. Urinary tract infection. The patient has been started empirically on cefepime. Urine culture is pending. Await urine culture results. 2. Sick sinus syndrome. The patient is status post pacemaker implantation. A Cardiology consultation by Dr. Juve Mayes. 3. Hypercholesteremia. Continue Lipitor as above. 4. Hypertension. Continue hydralazine as above. 5. Chronic obstructive pulmonary disease. Continue DuoNeb p.r.n. 6. Diabetes type 2. The patient has been started on NovoLog sliding scale. Wilder Colin M.D. DR: Aditya JOB#: [id number] CC:
[2017-02-08] VITALS: BP 111/70
--- NOTE | 2017-02-08 | Consultation ---
DATE OF CONSULTATION: 02/07/2017 CARDIOLOGY CONSULTATION CONSULTING PHYSICIAN: Juve Mayes M.D. REFERRING PHYSICIAN: Zion Echevarria M.D. REASON FOR CONSULTATION: Evaluation of the patient's pacemaker and management of hypertension and congestive heart failure. HISTORY OF PRESENT ILLNESS: The patient is a 76-year-old lady that I am quite familiar with from previous admissions. The patient has a history of hypertension and hyperlipidemia as well as sick sinus syndrome, status post [employer] pacemaker implantation, diabetes, and COPD. The patient also has history of multi-drug resistant E. coli as well as sacral stage III pressure ulcer. The patient presented with hematuria and was sent to the emergency room for further evaluation. The patient also was admitted for MDR UTI causing hematuria. PAST MEDICAL HISTORY: As mentioned above. MEDICATIONS: Include Lipitor, Lasix, hydralazine, metformin, potassium, Xarelto, spironolactone, and verapamil. ALLERGIES: She is allergic to erythromycin, codeine, meperidine, and penicillin. SOCIAL HISTORY: She lives at home. Does not smoke or drink alcohol. FAMILY HISTORY: Noncontributory. REVIEW OF SYSTEMS: Review of systems was performed and was negative other than what was mentioned in the history of present illness. PHYSICAL EXAMINATION: VITAL SIGNS: Blood pressure is 138/97, pulse is 91, respirations 18, and temperature 98.2 degrees. HEAD AND NECK: No JVD. LUNGS: Clear. CARDIOVASCULAR: Regular S1 and S2 with no gallop or murmur. ABDOMEN: Soft and nontender. EXTREMITIES: There is no pitting edema. The pacemaker in the left subclavian is intact. LABORATORY AND DIAGNOSTIC DATA: White count 6.1, hemoglobin 11.2, hematocrit 34.3, and platelet count of 176,000. Sodium is 144, potassium of 3.8, BUN of 18, creatinine of 0.7, and glucose of 127. Her INR is 1.1. ASSESSMENT AND PLAN: 1. Paroxysmal atrial fibrillation. The patient is in sinus rhythm. We will repeat EKG and echocardiogram. The patient's Xarelto discontinued in view of hematuria. 2. Status post [employer] pacemaker implantation. Pacemaker will be interrogated for further evaluation. 3. Hypertension. Continue hydralazine 25 mg every 6 hours, Lasix 40 mg daily, and Aldactone 25 mg daily. 4. History of congestive heart failure. Echocardiogram will be repeated. In view of her cardiomyopathy, we will discontinue verapamil and start the patient on Coreg instead as the patient is already on hydralazine and Lasix. The patient will likely benefit from MARY inhibitor in view of normal renal function. 5. Hematuria, off Xarelto due to Escherichia coli. Thank you very much, Dr. Echevarria for allowing me to participate in the care of this patient. Please do not hesitate to contact me for any questions regarding my evaluation. Juve Mayes M.D. DR: Demarcus JOB#: [id number] CC:
[2017-02-08 04:00] VITALS: BP 115/69
[2017-02-08] MEDS: HydrALAZINE 25mg tab ORAL SCH ×3 (06:10→18:00)
[2017-02-08] MEDS: NovoLOG Insulin Flexpen SUBQ SCH ×4 (06:12→20:41)
[2017-02-08 07:29] LABS: THYROID STIMULATING HORMONE 0.678 uiU/mL (0.360-3.740)
[2017-02-08 08:07] VITALS: BP 131/76
[2017-02-08] MEDS: Cefepime HCl 1 GM in D5W 55 ML IVPB SCH ×2 (08:11→20:39)
[2017-02-08] MEDS: Verapamil SR 240mg tab ORAL SCH ×2 (09:00→09:25)
[2017-02-08] MEDS: Memantine 5 MG TAB ORAL SCH ×2 (09:24→18:08)
[2017-02-08] MEDS: Furosemide 40mg tab ORAL SCH (09:24)
[2017-02-08] MEDS: KCl 10% 20 mEq/15ml liquid ORAL SCH (09:24)
[2017-02-08] MEDS: Docusate 100mg cap ORAL SCH ×2 (09:24→20:40)
[2017-02-08] MEDS: Spironolactone 25mg tab ORAL SCH (09:24)
[2017-02-08] MEDS: Dyna-Hex 2% Top Sol 2oz TOPIC SCH (09:24)
[2017-02-08] MEDS: Montelukast 10mg tablet ORAL SCH (09:25)
[2017-02-08] MEDS: metFORMIN 500mg tab ORAL SCH ×2 (09:25→18:08)
[2017-02-08] MEDS ORDERED: Tubing IV Secondary IV ONE (09:46)
--- NOTE | 2017-02-08 10:54 | Pulmonology Progress Note ---
Assessment/Plan Problems: (1) Hematuria (2) Sepsis (3) UTI (urinary tract infection) (4) COPD (chronic obstructive pulmonary disease) (5) Pacemaker (6) Hepatitis C Assessment/Plan continue abx check cultures ID consult pending all reviewed check labs, meds reviewed. Subjective ROS Limited/Unobtainable: No Interval Events: still c/o of abd pain Constitutional: Reports: no symptoms Allergies: Coded Allergies: ERYTHROMYCIN BASE (Verified Allergy, Intermediate, 08/28/16) CODEINE (Verified Allergy, Unknown, 08/28/16) MEPERIDINE (Verified Allergy, Unknown, 08/28/16) PENICILLINS (Verified Allergy, Unknown, 08/28/16) Objective Last 24 Hour Vital Signs Date Time Temp Pulse Resp B/P (MAP) Pulse Ox O2 Delivery O2 Flow Rate FiO2 02/08/17 09:00 86 110/62 02/08/17 08:07 98.2 21 131/76 96 Room Air 02/08/17 06:10 115/69 02/08/17 04:00 97.3 71 18 115/69 100 Nasal Cannula 2.0 02/08/17 00:00 97.5 80 18 111/70 99 Nasal Cannula 2.0 02/08/17 00:00 97.5 18 111/70 99 Nasal Cannula 2.0 02/07/17 23:57 111/70 02/07/17 20:00 97.9 84 19 117/64 100 Nasal Cannula 2.0 02/07/17 18:00 114/64 02/07/17 16:00 97.9 88 20 114/64 100 Nasal Cannula 2.0 02/07/17 12:56 98.2 91 18 138/9 95 Nasal Cannula 3.0 02/07/17 12:56 138/97 General Appearance: WD/WN, no acute distress HEENT: normocephalic Respiratory/Chest: chest wall non-tender, lungs clear Breasts: no masses Cardiovascular: normal peripheral pulses, normal rate Abdomen: normal bowel sounds Genitourinary: normal external genitalia Extremities: no clubbing Neurologic/Psychiatric: bottle inspector II-XII grossly normal Lymphatic: no neck adenopathy, no groin adenopathy Musculoskeletal: normal muscle bulk Microbiology Date/Time Source Procedure Growth Status 02/06/17 18:43 Urine,Clean Catch Urine Culture - Preliminary Gram Negative Bacillus 1 Resulted Laboratory Tests 02/08/17 06:00: Troponin I 0.017, Thyroid Stimulating Hormone (TSH) 0.678, Free Thyroxine 1.14 Current Medications Medications (Trade) Dose Ordered Sig/Joann Route PRN Reason Start Time Stop Time Status Last Admin Dose Admin Acetaminophen (Tylenol) 650 mg Q4H PRN ORAL Mild Pain / TEMP>101 02/06/17 22:00 03/08/17 21:59 Acetaminophen/ Hydrocodone Bitart ([place] 5/325) 1 tab Q6H PRN ORAL For Pain 02/06/17 21:30 02/13/17 21:29 Future Hold Atorvastatin Calcium (Lipitor) 10 mg BEDTIME ORAL 02/07/17 21:00 03/09/17 20:59 02/07/17 20:57 Cefepime HCl 1 gm/ Dextrose 55 ml @ 110 mls/hr EVERY 12 HOURS IVPB 02/07/17 09:00 02/14/17 08:59 02/08/17 08:11 Chlorhexidine Gluconate (Della-Hex 2%) 1 applic DAILY TOPIC 02/07/17 09:00 03/09/17 08:59 02/08/17 09:24 Dextrose (Dextrose 50%) STAT PRN IV Hypoglycemia 02/06/17 21:30 03/08/17 21:29 Docusate Sodium (Colace) 100 mg EVERY 12 HOURS ORAL 02/07/17 09:00 03/09/17 08:59 02/08/17 09:24 Furosemide (Lasix) 40 mg DAILY ORAL 02/07/17 09:00 03/09/17 08:59 02/08/17 09:24 Gabapentin (Neurontin) 100 mg TID ORAL 02/07/17 09:00 03/09/17 08:59 02/08/17 09:25 Hydralazine HCl (Apresoline) 25 mg EVERY 6 HOURS ORAL 02/07/17 18:00 03/09/17 17:59 02/08/17 06:10 Insulin Aspart (NovoLOG) BEFORE MEALS AND HS SUBQ 02/07/17 06:30 03/09/17 06:29 02/08/17 06:12 Memantine (Namenda) 5 mg BID ORAL 02/07/17 18:00 03/09/17 17:59 02/08/17 09:24 Metformin HCl (Glucophage) 500 mg TWICE A DAY ORAL 02/07/17 09:00 03/09/17 08:59 02/08/17 09:25 Montelukast Sodium (Singulair) 10 mg DAILY ORAL 02/07/17 09:00 03/09/17 08:59 02/08/17 09:25 Pantoprazole (Protonix) 40 mg DAILY ORAL 02/07/17 09:00 03/09/17 08:59 02/08/17 08:10 Potassium Chloride (KCl 10% 20 mEq oral solution) 10 meq DAILY ORAL 02/07/17 09:00 03/09/17 08:59 02/08/17 09:24 Spironolactone (Aldactone) 25 mg DAILY ORAL 02/07/17 09:00 03/09/17 08:59 02/08/17 09:24 Verapamil HCl (Calan SR) 240 mg DAILY ORAL 02/07/17 09:00 03/09/17 08:59 JONH RODRIGUEZ Feb 08, 2017 10:54
[2017-02-08 12:15] VITALS: BP 117/75
[2017-02-08 13:00] VITALS: BP 121/82
--- NOTE | 2017-02-08 15:59 | Internal Med Progress Note ---
Subjective Date of Service: Feb 08, 2017 Physician Name Chema Vázquez Attending Physician Zion Echevarria MD Current Medications Medications (Trade) Dose Ordered Sig/Joann Route PRN Reason Start Time Stop Time Status Last Admin Dose Admin Acetaminophen (Tylenol) 650 mg Q4H PRN ORAL Mild Pain / TEMP>101 02/06/17 22:00 03/08/17 21:59 Acetaminophen/ Hydrocodone Bitart ([place] 5/325) 1 tab Q6H PRN ORAL For Pain 02/06/17 21:30 02/13/17 21:29 Future Hold Atorvastatin Calcium (Lipitor) 10 mg BEDTIME ORAL 02/07/17 21:00 03/09/17 20:59 02/07/17 20:57 Cefepime HCl 1 gm/ Dextrose 55 ml @ 110 mls/hr EVERY 12 HOURS IVPB 02/07/17 09:00 02/14/17 08:59 02/08/17 08:11 Chlorhexidine Gluconate (Della-Hex 2%) 1 applic DAILY TOPIC 02/07/17 09:00 03/09/17 08:59 02/08/17 09:24 Dextrose (Dextrose 50%) STAT PRN IV Hypoglycemia 02/06/17 21:30 03/08/17 21:29 Docusate Sodium (Colace) 100 mg EVERY 12 HOURS ORAL 02/07/17 09:00 03/09/17 08:59 02/08/17 09:24 Furosemide (Lasix) 40 mg DAILY ORAL 02/07/17 09:00 03/09/17 08:59 02/08/17 09:24 Gabapentin (Neurontin) 100 mg TID ORAL 02/07/17 09:00 03/09/17 08:59 02/08/17 13:48 Hydralazine HCl (Apresoline) 25 mg EVERY 6 HOURS ORAL 02/07/17 18:00 03/09/17 17:59 02/08/17 13:49 Insulin Aspart (NovoLOG) BEFORE MEALS AND HS SUBQ 02/07/17 06:30 03/09/17 06:29 02/08/17 12:34 Memantine (Namenda) 5 mg BID ORAL 02/07/17 18:00 03/09/17 17:59 02/08/17 09:24 Metformin HCl (Glucophage) 500 mg TWICE A DAY ORAL 02/07/17 09:00 03/09/17 08:59 02/08/17 09:25 Montelukast Sodium (Singulair) 10 mg DAILY ORAL 02/07/17 09:00 03/09/17 08:59 02/08/17 09:25 Pantoprazole (Protonix) 40 mg DAILY ORAL 02/07/17 09:00 03/09/17 08:59 02/08/17 08:10 Potassium Chloride (KCl 10% 20 mEq oral solution) 10 meq DAILY ORAL 02/07/17 09:00 03/09/17 08:59 02/08/17 09:24 Spironolactone (Aldactone) 25 mg DAILY ORAL 02/07/17 09:00 03/09/17 08:59 02/08/17 09:24 Verapamil HCl (Calan SR) 240 mg DAILY ORAL 02/07/17 09:00 03/09/17 08:59 Allergies: Coded Allergies: ERYTHROMYCIN BASE (Verified Allergy, Intermediate, 08/28/16) CODEINE (Verified Allergy, Unknown, 08/28/16) MEPERIDINE (Verified Allergy, Unknown, 08/28/16) PENICILLINS (Verified Allergy, Unknown, 08/28/16) ROS Limited/Unobtainable: No Constitutional: Reports: no symptoms HEENT: Reports: no symptoms Cardiovascular: Reports: no symptoms Respiratory: Reports: no symptoms Gastrointestinal/Abdominal: Reports: no symptoms Genitourinary: Reports: no symptoms Neurologic/Psychiatric: Reports: no symptoms Subjective 76 YO F admitted with hematuria. Now UTI. Await CT to R/O renal calculi. Cover for Int Ryan-Dr Echevarria Objective Last Vital Signs Date Time Temp Pulse Resp B/P (MAP) Pulse Ox O2 Delivery O2 Flow Rate FiO2 02/08/17 13:49 121/66 02/08/17 12:15 97.7 116 21 99 Nasal Cannula 2.0 General Appearance: WD/WN, no apparent distress, alert EENT: PERRL/EOMI, normal ENT inspection, TMs normal Neck: non-tender, normal alignment, supple Cardiovascular: normal peripheral pulses, normal rate, regular rhythm, no gallop/murmur, no JVD Respiratory/Chest: chest wall non-tender, lungs clear, normal breath sounds, no respiratory distress, no accessory muscle use Abdomen: normal bowel sounds, non tender, soft, no organomegaly, no mass Extremities: normal range of motion, non-tender 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 II-XII grossly normal, no motor/sensory deficits Skin: normal pigmentation, warm/dry Laboratory Tests Test 02/08/17 06:00 Troponin I 0.017 ng/mL (0.000-0.056) Thyroid Stimulating Hormone (TSH) 0.678 uiU/mL (0.360-3.740) Free Thyroxine 1.14 NG/DL (0.10-1.46) Microbiology Date/Time Source Procedure Growth Status 02/06/17 18:43 Urine,Clean Catch Urine Culture - Preliminary Gram Negative Bacillus 1 Resulted Intake and Output 02/08/17 02/09/17 19:00 07:00 Intake Total 295 ml Balance 295 ml Intake Oral 240 ml IV Total 55 ml # Voids 2 Assessment/Plan Problem List: (1) HTN (hypertension) Assessment & Plan: Continue hydralazine and verapamil (2) UTI (urinary tract infection) Assessment & Plan: Gram neg eloise. Await urine culture results. Continue cefepime for now. (3) Hematuria Assessment & Plan: Await CT abdomen/pelvis to R/O renal calculus (4) Pacemaker (5) Uncontrolled diabetes mellitus Assessment & Plan: Continue metformin and novolog sliding scale. (6) COPD (chronic obstructive pulmonary disease) (7) Sick sinus syndrome Assessment & Plan: see cardiology note. Status: not improved CHEMA VÁZQUEZ Feb 08, 2017 15:59
--- NOTE | 2017-02-08 17:34 | Cardiac Electrophysiology PN ---
Assessment/Plan Assessment/Plan 1. Paroxysmal atrial fibrillation. Remained sinus rhythm. Xarelto discontinued in view of hematuria. 2. Status post [employer] pacemaker implantation. 3. Hypertension. Continue hydralazine 25 mg every 6 hours, Lasix 40 mg daily, and Aldactone 25 mg daily. 4. History of congestive heart failure. Echocardiogram will be repeated. In view of her cardiomyopathy, we will discontinue verapamil and start the patient on Coreg instead as the patient is already on hydralazine and Lasix. The patient will likely benefit from MARY inhibitor in view of normal renal function. Subjective Subjective Comfortable in NAD. No chest pain or SOB. Objective Last 24 Hour Vital Signs Date Time Temp Pulse Resp B/P (MAP) Pulse Ox O2 Delivery O2 Flow Rate FiO2 02/08/17 13:49 121/66 02/08/17 13:00 121/82 02/08/17 12:15 97.7 116 21 117/75 99 Nasal Cannula 2.0 02/08/17 09:00 86 110/62 02/08/17 08:07 98.2 21 131/76 96 Room Air 02/08/17 06:10 115/69 02/08/17 04:00 97.3 71 18 115/69 100 Nasal Cannula 2.0 02/08/17 00:00 97.5 80 18 111/70 99 Nasal Cannula 2.0 02/08/17 00:00 97.5 18 111/70 99 Nasal Cannula 2.0 02/07/17 23:57 111/70 02/07/17 20:00 97.9 84 19 117/64 100 Nasal Cannula 2.0 02/07/17 18:00 114/64 Intake and Output 02/08/17 02/09/17 19:00 07:00 Intake Total 295 ml Balance 295 ml Intake Oral 240 ml IV Total 55 ml # Voids 2 Laboratory Tests Test 02/08/17 06:00 Troponin I 0.017 ng/mL (0.000-0.056) Thyroid Stimulating Hormone (TSH) 0.678 uiU/mL (0.360-3.740) Free Thyroxine 1.14 NG/DL (0.10-1.46) Microbiology Date/Time Source Procedure Growth Status 02/06/17 18:43 Urine,Clean Catch Urine Culture - Preliminary Gram Negative Bacillus 1 Resulted Objective HEAD AND NECK: No JVD. LUNGS: Clear. CARDIOVASCULAR: Regular S1 and S2 with no gallop or murmur. ABDOMEN: Soft and nontender. EXTREMITIES: There is no pitting edema. The pacemaker in the left subclavian is intact. JAMAAL LAWS Feb 08, 2017 17:34
--- NOTE | 2017-02-08 18:21 | Cardiology Report ---
APPROVED REPORT EXAM: Two-dimensional and M-mode echocardiogram with Doppler and color Doppler. INDICATION Congestive Heart Failure M-Mode DIMENSIONS IVSd1.0 (0.7-1.1cm)Left Atrium (MM)4.9 (1.6-4.0cm) LVDd5.9 (3.5-5.6cm)Aortic Root3.0 (2.0-3.7cm) PWd0.9 (0.7-1.1cm)Aortic Cusp Exc.1.6 (1.5-2.0cm) LVDs4.7 (2.5-4.0cm) PWs0.9 cm Technically difficult study due to poor acoustical windows. Normal left ventricular chamber size. Global left ventricular hypokinesis. Left ventricular ejection fraction estimated to be 40-45%. No evidence of left ventricular hypertrophy. No evidence of pericardial or pleural effusion. Mild left atrial enlargement by 2D. Focal aortic valve sclerosis with adequate cusp excursion. Thickened mitral valve leaflets with normal excursion. Mild mitral annulus and aortic root calcification. Pulmonic valve not well visualized. Normal tricuspid valve structure. IVC is normal in size and collapsible with respiration. IVC dilated at 2.4 cm and collapsible with respiration. RA pressure of 10mmHg. Probable pacemaker wire present in the right side chambers. A color flow and spectral Doppler study was performed and revealed: No aortic regurgitation. Moderate to Severe mitral regurgitation. Mitral diastolic function not obtainable due to A-FIB. Mild to moderate tricuspid regurgitation. Tricuspid systolic velocities suggests peak right ventricular systolic pressure of 32 mmHg Pulmonic regurgitation present.
[2017-02-08 20:00] VITALS: BP 108/67
[2017-02-09] VITALS: BP 111/64
[2017-02-09] MEDS: HydrALAZINE 25mg tab ORAL SCH ×3 (00:42→12:00)
[2017-02-09 04:00] VITALS: BP 122/71
[2017-02-09] MEDS: NovoLOG Insulin Flexpen SUBQ SCH ×4 (06:06→21:14)
[2017-02-09 07:04] LABS: BASOPHILS % (AUTO) 1.4 % (0.0-2.0); MEAN CORPUSCULAR HEMOGLOBIN 26.9 PG (27.0-31.0); MEAN CORPUSCULAR HGB CONC 32.3 G/DL (32.0-36.0); MEAN CORPUSCULAR VOLUME 83 FL (80-99); MEAN PLATELET VOLUME 9.4 FL (6.5-10.1); MONOCYTES % (AUTO) 9.4 % (1.0-10.0); NEUTROPHILS % (AUTO) 48.1 % (45.0-75.0); PLATELET COUNT 194 K/UL (150-450); RED BLOOD COUNT 4.14 M/UL (4.20-5.40); RED CELL DISTRIBUTION WIDTH 13.7 % (11.6-14.8); WHITE BLOOD COUNT 5.7 K/UL (4.8-10.8)
[2017-02-09 07:27] LABS: ALANINE AMINOTRANSFERASE 17 U/L (12-78); ALBUMIN/GLOBULIN RATIO 0.7 (1.0-2.7); ANION GAP 6 mmol/L (5-15); ASPARTATE AMINO TRANSFERASE 17 U/L (15-37); CARBON DIOXIDE 31 MMOL/L (21-32); CHLORIDE 104 MMOL/L (98-107); CREATININE 0.7 MG/DL (0.55-1.30); MAGNESIUM 1.2 MG/DL (1.8-2.4); PHOSPHORUS 3.5 MG/DL (2.5-4.9); POTASSIUM 3.8 MMOL/L (3.5-5.1); SODIUM 141 MMOL/L (136-145); TOTAL PROTEIN 7.1 G/DL (6.4-8.2)
[2017-02-09 08:08] LABS: ERYTHROCYTE SEDIMENTATION RATE 16 MM/HR (0-30)
[2017-02-09] MEDS: Docusate 100mg cap ORAL SCH ×2 (08:18→21:09)
[2017-02-09] MEDS: Memantine 5 MG TAB ORAL SCH ×2 (08:18→17:49)
[2017-02-09] MEDS: Furosemide 40mg tab ORAL SCH (08:18)
[2017-02-09] MEDS: metFORMIN 500mg tab ORAL SCH ×2 (08:18→17:49)
[2017-02-09] MEDS: Montelukast 10mg tablet ORAL SCH (08:19)
[2017-02-09] MEDS: KCl 10% 20 mEq/15ml liquid ORAL SCH (08:19)
[2017-02-09] MEDS: Spironolactone 25mg tab ORAL SCH (08:19)
[2017-02-09] MEDS: Verapamil SR 240mg tab ORAL SCH (08:20)
[2017-02-09] MEDS: Dyna-Hex 2% Top Sol 2oz TOPIC SCH (08:20)
[2017-02-09] MEDS: Cefepime HCl 1 GM in D5W 55 ML IVPB SCH (08:21)
--- NOTE | 2017-02-09 11:20 | Consultation ---
History of Present Illness General Date patient seen: Feb 09, 2017 Time patient seen: 11:20 Chief Complaint: General Complaint Reason for Consultation: inpatient management Present Illness HPI 76 y/o F with hx of SSS s/p PPM in the left anterior chest wall, HLD, COPD, Dysphagia, sacral stage III pressure ulcer HTN, Dementia, hx of MRSA and VRE colonization, hx of R and L ankle fx is admitted on 02/06 for 1 episode of hematuria Denied abd pain, n/v, +L flank pain intermittently for the last 3 weeks Patient was recently admitted to this institution from 01/16-01/20 with ESBL E.coli UTI and treated with 10 days of Ertapenem (end date: 01/28/2017) Afebrile, no leukocytosis. U/a with pyuria. ucx grew Protesus,. Awaiting CT abd/ p. Allergies: Coded Allergies: ERYTHROMYCIN BASE (Verified Allergy, Intermediate, 08/28/16) CODEINE (Verified Allergy, Unknown, 08/28/16) MEPERIDINE (Verified Allergy, Unknown, 08/28/16) PENICILLINS (Verified Allergy, Unknown, 08/28/16) Medication History Scheduled Atorvastatin Calcium* (Lipitor*), 10 MG ORAL BEDTIME, (Reported) Docusate Sodium* (Colace*), 100 MG ORAL EVERY 12 HOURS Ertapenem Sodium* (INVanz*), 1 GM IVPB Q24H Furosemide* (Lasix*), 40 MG ORAL DAILY Gabapentin* (Gabapentin*), 100 MG ORAL TID Gabapentin* (Gabapentin*), 300 MG ORAL BID, (Reported) Hydralazine HCl (Hydralazine HCl), 25 MG ORAL EVERY 6 HOURS, (Reported) Insulin Aspart (Novolog Flexpen), 0 UNITS SUBQ BEFORE MEALS AND HS Memantine Hcl* (Namenda*), 5 MG ORAL BID, (Reported) Metformin Hcl* (Metformin Hcl*), 500 MG ORAL TWICE A DAY, (Reported) Montelukast Sodium* (Montelukast Sodium*), 10 MG ORAL DAILY, (Reported) Pantoprazole* (Protonix*), 40 MG ORAL DAILY Potassium Chloride (Potassium Chloride), 10 MEQ ORAL DAILY Rivaroxaban (Xarelto*), 20 MG ORAL DAILY Spironolactone (Aldactone), 25 MG ORAL DAILY Verapamil Hcl* (Calan Sr*), 250 MG ORAL DAILY, (Reported) Scheduled PRN Acetaminophen* (Acetaminophen 325MG Tablet*), 650 MG ORAL Q4H PRN for Mild Pain / TEMP>101 Ibuprofen* (Motrin*), 200 MG ORAL Q4HR PRN for For Pain, (Reported) Miscellaneous Medications Ipratropium/Albuterol Sulfate (DuoNeb 0.5-3(2.5)mg/3ml), 3 ML HHN, (Reported) Unable to Obtain Medications (Unable To Obtain Meds), (Reported) Medications Narrative PMhx: as above SHx: The patient is . The patient denies tobacco or alcohol use. Fhx: no contributory Patient History Healthcare decision maker Resuscitation status Full Code Advanced Directive on File Review of Systems All Other Systems: negative except mentioned in HPI Physical Exam Physical Exam Narrative GENERAL: The patient is well-developed, well-nourished, -German female , in no apparent distress. HEENT: Eyes: Pupils equal and responsive to light and accommodation. Extraocular movements are intact. NECK: Supple without lymphadenopathy. CHEST: Lungs are clear to auscultation bilaterally without wheezes or rales. CARDIOVASCULAR: Regular rate. S1 and S2 are normal without murmurs, rubs, or gallops. ABDOMEN: Soft, nontender, and nondistended. Positive bowel sounds. No evidence of hepatosplenomegaly. Currently, no rebound or guarding noted. +L flank TTP EXTREMITIES: Negative for clubbing, cyanosis, or edema. NEUROLOGIC: AAO x3, no focal deficits Last 24 Hour Vital Signs Date Time Temp Pulse Resp B/P (MAP) Pulse Ox O2 Delivery O2 Flow Rate FiO2 02/09/17 09:00 97.3 57 20 100 02/09/17 08:20 87 113/75 02/09/17 06:04 111/78 02/09/17 04:00 97.6 80 19 122/71 100 Nasal Cannula 2.0 02/09/17 00:42 111/64 02/09/17 00:00 97.7 77 20 111/64 97 Room Air 02/08/17 20:00 97.9 68 19 108/67 100 Nasal Cannula 2.0 02/08/17 18:00 104/69 02/08/17 13:49 121/66 10/29/17 13:00 121/82 02/08/17 12:15 97.7 116 21 117/75 99 Nasal Cannula 2.0 Laboratory Tests Test 02/09/17 06:30 White Blood Count 5.7 K/UL (4.8-10.8) Red Blood Count 4.14 M/UL (4.20-5.40) L Hemoglobin 11.1 G/DL (12.0-16.0) L Hematocrit 34.5 % (37.0-47.0) L Mean Corpuscular Volume 83 FL (80-99) Mean Corpuscular Hemoglobin 26.9 PG (27.0-31.0) L Mean Corpuscular Hemoglobin Concent 32.3 G/DL (32.0-36.0) Red Cell Distribution Width 13.7 % (11.6-14.8) Platelet Count 194 K/UL (150-450) Mean Platelet Volume 9.4 FL (6.5-10.1) Neutrophils (%) (Auto) 48.1 % (45.0-75.0) Lymphocytes (%) (Auto) 34.0 % (20.0-45.0) Monocytes (%) (Auto) 9.4 % (1.0-10.0) Eosinophils (%) (Auto) 7.0 % (0.0-3.0) H Basophils (%) (Auto) 1.4 % (0.0-2.0) Erythrocyte Sedimentation Rate 16 MM/HR (0-30) Sodium Level 141 MMOL/L (136-145) Potassium Level 3.8 MMOL/L (3.5-5.1) Chloride Level 104 MMOL/L (98-107) Carbon Dioxide Level 31 MMOL/L (21-32) Anion Gap 6 mmol/L (5-15) Blood Urea Nitrogen 18 mg/dL (7-18) Creatinine 0.7 MG/DL (0.55-1.30) Estimat Glomerular Filtration Rate mL/min (>60) Glucose Level 131 MG/DL (74-106) H Calcium Level 9.0 MG/DL (8.5-10.1) Phosphorus Level 3.5 MG/DL (2.5-4.9) Magnesium Level 1.2 MG/DL (1.8-2.4) L Total Bilirubin 0.3 MG/DL (0.2-1.0) Aspartate Amino Transf (AST/SGOT) 17 U/L (15-37) Alanine Aminotransferase (ALT/SGPT) 17 U/L (12-78) Alkaline Phosphatase 92 U/L (46-116) C-Reactive Protein, Quantitative 1.0 mg/dL (0.00-0.90) H Total Protein 7.1 G/DL (6.4-8.2) Albumin 3.0 G/DL (3.4-5.0) L Globulin 4.1 g/dL Albumin/Globulin Ratio 0.7 (1.0-2.7) L Height (Feet): 5 Height (Inches): 6.00 Weight (Pounds): 165 Medications Current Medications Medications (Trade) Dose Ordered Sig/Joann Route PRN Reason Start Time Stop Time Status Last Admin Dose Admin Acetaminophen (Tylenol) 650 mg Q4H PRN ORAL Mild Pain / TEMP>101 02/06/17 22:00 03/08/17 21:59 Acetaminophen/ Hydrocodone Bitart ([place] 5/325) 1 tab Q6H PRN ORAL For Pain 02/06/17 21:30 02/13/17 21:29 Future Hold Atorvastatin Calcium (Lipitor) 10 mg BEDTIME ORAL 02/07/17 21:00 03/09/17 20:59 02/08/17 20:40 Cefepime HCl 1 gm/ Dextrose 55 ml @ 110 mls/hr EVERY 12 HOURS IVPB 02/07/17 09:00 02/14/17 08:59 02/09/17 08:21 Chlorhexidine Gluconate (Della-Hex 2%) 1 applic DAILY TOPIC 02/07/17 09:00 03/09/17 08:59 02/09/17 08:20 Dextrose (Dextrose 50%) STAT PRN IV Hypoglycemia 02/06/17 21:30 03/08/17 21:29 Docusate Sodium (Colace) 100 mg EVERY 12 HOURS ORAL 02/07/17 09:00 03/09/17 08:59 02/09/17 08:18 Furosemide (Lasix) 40 mg DAILY ORAL 02/07/17 09:00 03/09/17 08:59 02/09/17 08:18 Gabapentin (Neurontin) 100 mg TID ORAL 02/07/17 09:00 03/09/17 08:59 02/09/17 08:18 Hydralazine HCl (Apresoline) 25 mg EVERY 6 HOURS ORAL 02/07/17 18:00 03/09/17 17:59 02/09/17 06:04 Ibuprofen (Motrin) 600 mg Q8H PRN ORAL Moderate Pain (Pain Scale 4-6) 02/09/17 07:45 03/11/17 07:44 Insulin Aspart (NovoLOG) BEFORE MEALS AND HS SUBQ 02/07/17 06:30 03/09/17 06:29 02/09/17 06:06 Magnesium Sulfate 100 ml @ 100 mls/hr Q1H IVPB 02/09/17 10:00 02/09/17 11:59 02/09/17 11:12 Memantine (Namenda) 5 mg BID ORAL 02/07/17 18:00 03/09/17 17:59 02/09/17 08:18 Metformin HCl (Glucophage) 500 mg TWICE A DAY ORAL 02/07/17 09:00 03/09/17 08:59 02/09/17 08:18 Montelukast Sodium (Singulair) 10 mg DAILY ORAL 02/07/17 09:00 03/09/17 08:59 02/09/17 08:19 Pantoprazole (Protonix) 40 mg DAILY ORAL 02/07/17 09:00 03/09/17 08:59 02/09/17 08:18 Potassium Chloride (KCl 10% 20 mEq oral solution) 10 meq DAILY ORAL 02/07/17 09:00 03/09/17 08:59 02/09/17 08:19 Spironolactone (Aldactone) 25 mg DAILY ORAL 02/07/17 09:00 03/09/17 08:59 02/09/17 08:19 Verapamil HCl (Calan SR) 240 mg DAILY ORAL 02/07/17 09:00 03/09/17 08:59 Assessment/Plan Assessment/Plan Abx: IV Meropenem x1 02/06 IV Ceftriaxone x1 02/06 Cefepime 02/07- Assesment: Proteus UTI- r/o pyelo, infected stone (+LCVAT) -u/a wbc 20-30, nit +, leuk +3; ucx >100k P. mirabilis (S Ancef/Ceftriaxone; R bactrim, I levo) Hematuria- r/o mass, stone- given recurrent UTIs Recent ESBL UTI s/p 10 d Ertapenem 01/28 Afebrile, no leukocytosis Dm2 sacral stage III pressure ulcer hx MRSA colonized hx VRE colonized Dementia. Hypertension. Chronic obstructive pulmonary disease. SSS s/p PPM in the left anterior chest wall HLD hx of R and L ankle fx Plan: -Switch Cefepime abx d#4 to Ceftriaxone; duration to be determine pending CT findings -s/p 1 dose Alisson/Ceftriaxone 02/06 -s/p 10 d Ertapenem 01/28 -s/p 3d Cefepime 10 -s/p 1d Vanco 10/ -s/p 1 d Meropenem 10 -Agree with CT abd/p to evaluate for stones -Consider urology evaluation -f/u cx -Monitor CBC/BMP, temperatures Thank you for this consultation. Will continue to follow along with you. Discussed with Lila Aceves M.D. Feb 09, 2017 11:20
--- NOTE | 2017-02-09 11:56 | Internal Med Progress Note ---
Subjective Date of Service: Feb 09, 2017 Physician Name Chema Vázquez Attending Physician Zion Echevarria MD Current Medications Medications (Trade) Dose Ordered Sig/Joann Route PRN Reason Start Time Stop Time Status Last Admin Dose Admin Acetaminophen (Tylenol) 650 mg Q4H PRN ORAL Mild Pain / TEMP>101 02/06/17 22:00 03/08/17 21:59 Acetaminophen/ Hydrocodone Bitart ([place] 5/325) 1 tab Q6H PRN ORAL For Pain 02/06/17 21:30 02/13/17 21:29 Future Hold Atorvastatin Calcium (Lipitor) 10 mg BEDTIME ORAL 02/07/17 21:00 03/09/17 20:59 02/08/17 20:40 Cefepime HCl 1 gm/ Dextrose 55 ml @ 110 mls/hr EVERY 12 HOURS IVPB 02/07/17 09:00 02/14/17 08:59 02/09/17 08:21 Chlorhexidine Gluconate (Della-Hex 2%) 1 applic DAILY TOPIC 02/07/17 09:00 03/09/17 08:59 02/09/17 08:20 Dextrose (Dextrose 50%) STAT PRN IV Hypoglycemia 02/06/17 21:30 03/08/17 21:29 Docusate Sodium (Colace) 100 mg EVERY 12 HOURS ORAL 02/07/17 09:00 03/09/17 08:59 02/09/17 08:18 Furosemide (Lasix) 40 mg DAILY ORAL 02/07/17 09:00 03/09/17 08:59 02/09/17 08:18 Gabapentin (Neurontin) 100 mg TID ORAL 02/07/17 09:00 03/09/17 08:59 02/09/17 08:18 Hydralazine HCl (Apresoline) 25 mg EVERY 6 HOURS ORAL 02/07/17 18:00 03/09/17 17:59 02/09/17 06:04 Ibuprofen (Motrin) 600 mg Q8H PRN ORAL Moderate Pain (Pain Scale 4-6) 02/09/17 07:45 03/11/17 07:44 Insulin Aspart (NovoLOG) BEFORE MEALS AND HS SUBQ 02/07/17 06:30 03/09/17 06:29 02/09/17 06:06 Magnesium Sulfate 100 ml @ 100 mls/hr Q1H IVPB 02/09/17 10:00 02/09/17 11:59 02/09/17 11:12 Memantine (Namenda) 5 mg BID ORAL 02/07/17 18:00 03/09/17 17:59 02/09/17 08:18 Metformin HCl (Glucophage) 500 mg TWICE A DAY ORAL 02/07/17 09:00 03/09/17 08:59 02/09/17 08:18 Montelukast Sodium (Singulair) 10 mg DAILY ORAL 02/07/17 09:00 03/09/17 08:59 02/09/17 08:19 Pantoprazole (Protonix) 40 mg DAILY ORAL 02/07/17 09:00 03/09/17 08:59 02/09/17 08:18 Potassium Chloride (KCl 10% 20 mEq oral solution) 10 meq DAILY ORAL 02/07/17 09:00 03/09/17 08:59 02/09/17 08:19 Spironolactone (Aldactone) 25 mg DAILY ORAL 02/07/17 09:00 03/09/17 08:59 02/09/17 08:19 Verapamil HCl (Calan SR) 240 mg DAILY ORAL 02/07/17 09:00 03/09/17 08:59 Allergies: Coded Allergies: ERYTHROMYCIN BASE (Verified Allergy, Intermediate, 08/28/16) CODEINE (Verified Allergy, Unknown, 08/28/16) MEPERIDINE (Verified Allergy, Unknown, 08/28/16) PENICILLINS (Verified Allergy, Unknown, 08/28/16) ROS Limited/Unobtainable: No Constitutional: Reports: no symptoms HEENT: Reports: no symptoms Cardiovascular: Reports: no symptoms Respiratory: Reports: no symptoms Gastrointestinal/Abdominal: Reports: no symptoms Genitourinary: Reports: no symptoms Neurologic/Psychiatric: Reports: no symptoms Subjective 76 YO F admitted with hematuria. Now UTI. Await CT to R/O renal calculi. Cover for Int Ryan-Dr Echevarria Objective Last Vital Signs Date Time Temp Pulse Resp B/P (MAP) Pulse Ox O2 Delivery O2 Flow Rate FiO2 02/09/17 09:00 97.3 57 20 100 02/09/17 08:20 113/75 02/09/17 04:00 Nasal Cannula 2.0 Laboratory Tests Test 02/09/17 06:30 White Blood Count 5.7 K/UL (4.8-10.8) Red Blood Count 4.14 M/UL (4.20-5.40) L Hemoglobin 11.1 G/DL (12.0-16.0) L Hematocrit 34.5 % (37.0-47.0) L Mean Corpuscular Volume 83 FL (80-99) Mean Corpuscular Hemoglobin 26.9 PG (27.0-31.0) L Mean Corpuscular Hemoglobin Concent 32.3 G/DL (32.0-36.0) Red Cell Distribution Width 13.7 % (11.6-14.8) Platelet Count 194 K/UL (150-450) Mean Platelet Volume 9.4 FL (6.5-10.1) Neutrophils (%) (Auto) 48.1 % (45.0-75.0) Lymphocytes (%) (Auto) 34.0 % (20.0-45.0) Monocytes (%) (Auto) 9.4 % (1.0-10.0) Eosinophils (%) (Auto) 7.0 % (0.0-3.0) H Basophils (%) (Auto) 1.4 % (0.0-2.0) Erythrocyte Sedimentation Rate 16 MM/HR (0-30) Sodium Level 141 MMOL/L (136-145) Potassium Level 3.8 MMOL/L (3.5-5.1) Chloride Level 104 MMOL/L (98-107) Carbon Dioxide Level 31 MMOL/L (21-32) Anion Gap 6 mmol/L (5-15) Blood Urea Nitrogen 18 mg/dL (7-18) Creatinine 0.7 MG/DL (0.55-1.30) Estimat Glomerular Filtration Rate mL/min (>60) Glucose Level 131 MG/DL (74-106) H Calcium Level 9.0 MG/DL (8.5-10.1) Phosphorus Level 3.5 MG/DL (2.5-4.9) Magnesium Level 1.2 MG/DL (1.8-2.4) L Total Bilirubin 0.3 MG/DL (0.2-1.0) Aspartate Amino Transf (AST/SGOT) 17 U/L (15-37) Alanine Aminotransferase (ALT/SGPT) 17 U/L (12-78) Alkaline Phosphatase 92 U/L (46-116) C-Reactive Protein, Quantitative 1.0 mg/dL (0.00-0.90) H Total Protein 7.1 G/DL (6.4-8.2) Albumin 3.0 G/DL (3.4-5.0) L Globulin 4.1 g/dL Albumin/Globulin Ratio 0.7 (1.0-2.7) L Microbiology Date/Time Source Procedure Growth Status 02/06/17 18:43 Urine,Clean Catch Urine Culture - Final Proteus Mirabilis Complete Objective General Appearance: WD/WN, no apparent distress, alert EENT: PERRL/EOMI, normal ENT inspection, TMs normal Neck: non-tender, normal alignment, supple Cardiovascular: normal peripheral pulses, normal rate, regular rhythm, no gallop/murmur, no JVD Respiratory/Chest: chest wall non-tender, lungs clear, normal breath sounds, no respiratory distress, no accessory muscle use Abdomen: normal bowel sounds, non tender, soft, no organomegaly, no mass Extremities: normal range of motion, non-tender Neurologic: 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 Continue cefepime for now. See ID note. (3) Hematuria Assessment & Plan: Await CT abdomen/pelvis to R/O renal calculus (4) Pacemaker (5) Uncontrolled diabetes mellitus Assessment & Plan: Continue metformin and novolog sliding scale. (6) COPD (chronic obstructive pulmonary disease) (7) Sick sinus syndrome Assessment & Plan: see cardiology note. Status: not improved CHEMA VÁZQUEZ Feb 09, 2017 11:56
--- NOTE | 2017-02-09 14:40 | Pulmonology Progress Note ---
Assessment/Plan Problems: (1) Hematuria (2) Sepsis (3) UTI (urinary tract infection) (4) COPD (chronic obstructive pulmonary disease) (5) Pacemaker (6) Hepatitis C Assessment/Plan wound care continue abx check cultures ID consult appreciated all reviewed check labs, meds reviewed. Subjective ROS Limited/Unobtainable: No Constitutional: Reports: no symptoms HEENT: Repors: no symptoms Respiratory: Reports: no symptoms Allergies: Coded Allergies: ERYTHROMYCIN BASE (Verified Allergy, Intermediate, 08/28/16) CODEINE (Verified Allergy, Unknown, 08/28/16) MEPERIDINE (Verified Allergy, Unknown, 08/28/16) PENICILLINS (Verified Allergy, Unknown, 08/28/16) Objective Last 24 Hour Vital Signs Date Time Temp Pulse Resp B/P (MAP) Pulse Ox O2 Delivery O2 Flow Rate FiO2 02/09/17 12:00 118/77 02/09/17 09:00 97.3 57 20 100 02/09/17 08:20 87 113/75 02/09/17 06:04 111/78 02/09/17 04:00 97.6 80 19 122/71 100 Nasal Cannula 2.0 02/09/17 00:42 111/64 02/09/17 00:00 97.7 77 20 111/64 97 Room Air 02/08/17 20:00 97.9 68 19 108/67 100 Nasal Cannula 2.0 02/08/17 18:00 104/69 General Appearance: WD/WN HEENT: normocephalic, anicteric Respiratory/Chest: chest wall non-tender, lungs clear Breasts: no masses Cardiovascular: normal peripheral pulses, normal rate, regular rhythm Abdomen: normal bowel sounds, soft, non tender Genitourinary: normal external genitalia 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, abnormal gait Microbiology Date/Time Source Procedure Growth Status 02/06/17 18:43 Urine,Clean Catch Urine Culture - Final Proteus Mirabilis Complete Laboratory Tests 02/09/17 06:30: White Blood Count 5.7, Red Blood Count 4.14L, Hemoglobin 11.1L, Hematocrit 34.5L , Mean Corpuscular Volume 83, Mean Corpuscular Hemoglobin 26.9L, Mean Corpuscular Hemoglobin Concent 32.3, Red Cell Distribution Width 13.7, Platelet Count 194, Mean Platelet Volume 9.4, Neutrophils (%) (Auto) 48.1, Lymphocytes (% ) (Auto) 34.0, Monocytes (%) (Auto) 9.4, Eosinophils (%) (Auto) 7.0H, Basophils (%) (Auto) 1.4, Erythrocyte Sedimentation Rate 16, Sodium Level 141, Potassium Level 3.8, Chloride Level 104, Carbon Dioxide Level 31, Anion Gap 6, Blood Urea Nitrogen 18, Creatinine 0.7, Estimat Glomerular Filtration Rate , Glucose Level 131H, Calcium Level 9.0, Phosphorus Level 3.5, Magnesium Level 1.2L, Total Bilirubin 0.3, Aspartate Amino Transf (AST/SGOT) 17, Alanine Aminotransferase ( ALT/SGPT) 17, Alkaline Phosphatase 92, C-Reactive Protein, Quantitative 1.0H, Total Protein 7.1, Albumin 3.0L, Globulin 4.1, Albumin/Globulin Ratio 0.7L Current Medications Medications (Trade) Dose Ordered Sig/Joann Route PRN Reason Start Time Stop Time Status Last Admin Dose Admin Acetaminophen (Tylenol) 650 mg Q4H PRN ORAL Mild Pain / TEMP>101 02/06/17 22:00 03/08/17 21:59 Acetaminophen/ Hydrocodone Bitart ([place] 5/325) 1 tab Q6H PRN ORAL For Pain 02/06/17 21:30 02/13/17 21:29 Future Hold Atorvastatin Calcium (Lipitor) 10 mg BEDTIME ORAL 02/07/17 21:00 03/09/17 20:59 02/08/17 20:40 Ceftriaxone Sodium 2 gm/ Sodium Chloride 110 ml @ 220 mls/hr Q24H IVPB 02/09/17 20:00 02/16/17 19:59 Chlorhexidine Gluconate (Della-Hex 2%) 1 applic DAILY TOPIC 02/07/17 09:00 03/09/17 08:59 02/09/17 08:20 Dextrose (Dextrose 50%) STAT PRN IV Hypoglycemia 02/06/17 21:30 03/08/17 21:29 Docusate Sodium (Colace) 100 mg EVERY 12 HOURS ORAL 02/07/17 09:00 03/09/17 08:59 02/09/17 08:18 Furosemide (Lasix) 40 mg DAILY ORAL 02/07/17 09:00 03/09/17 08:59 02/09/17 08:18 Gabapentin (Neurontin) 100 mg TID ORAL 02/07/17 09:00 03/09/17 08:59 02/09/17 13:17 Hydralazine HCl (Apresoline) 25 mg EVERY 6 HOURS ORAL 02/07/17 18:00 03/09/17 17:59 02/09/17 06:04 Ibuprofen (Motrin) 600 mg Q8H PRN ORAL Moderate Pain (Pain Scale 4-6) 02/09/17 07:45 03/11/17 07:44 Insulin Aspart (NovoLOG) BEFORE MEALS AND HS SUBQ 02/07/17 06:30 03/09/17 06:29 02/09/17 13:20 Memantine (Namenda) 5 mg BID ORAL 02/07/17 18:00 03/09/17 17:59 02/09/17 08:18 Metformin HCl (Glucophage) 500 mg TWICE A DAY ORAL 02/07/17 09:00 03/09/17 08:59 02/09/17 08:18 Montelukast Sodium (Singulair) 10 mg DAILY ORAL 02/07/17 09:00 03/09/17 08:59 02/09/17 08:19 Pantoprazole (Protonix) 40 mg DAILY ORAL 02/07/17 09:00 03/09/17 08:59 02/09/17 08:18 Potassium Chloride (KCl 10% 20 mEq oral solution) 10 meq DAILY ORAL 02/07/17 09:00 03/09/17 08:59 02/09/17 08:19 Spironolactone (Aldactone) 25 mg DAILY ORAL 02/07/17 09:00 03/09/17 08:59 02/09/17 08:19 Verapamil HCl (Calan SR) 240 mg DAILY ORAL 02/07/17 09:00 03/09/17 08:59 JONH RODRIGUEZ Feb 09, 2017 14:40
--- NOTE | 2017-02-09 14:47 | Cardiac Electrophysiology PN ---
Assessment/Plan Assessment/Plan 1. Paroxysmal atrial fibrillation. Remained sinus rhythm. Xarelto discontinued 2. Status post [employer] pacemaker implantation. 3. Hypertension. Continue hydralazine 25 mg every 6 hours, Lasix 40 mg daily, and Aldactone 25 mg daily. 4. History of congestive heart failure. Echocardiogram EF 45% On Coreg, Lisinopril and Lasix. ABIODUN RN and Dr Telles Subjective Subjective Comfortable in NAD. No chest pain or SOB.Had CT abdomen and pelvis looking for stones. Objective Last 24 Hour Vital Signs Date Time Temp Pulse Resp B/P (MAP) Pulse Ox O2 Delivery O2 Flow Rate FiO2 02/09/17 12:00 118/77 02/09/17 09:00 97.3 57 20 100 02/09/17 08:20 87 113/75 02/09/17 06:04 111/78 02/09/17 04:00 97.6 80 19 122/71 100 Nasal Cannula 2.0 02/09/17 00:42 111/64 02/09/17 00:00 97.7 77 20 111/64 97 Room Air 02/08/17 20:00 97.9 68 19 108/67 100 Nasal Cannula 2.0 02/08/17 18:00 104/69 Laboratory Tests Test 02/09/17 06:30 White Blood Count 5.7 K/UL (4.8-10.8) Red Blood Count 4.14 M/UL (4.20-5.40) L Hemoglobin 11.1 G/DL (12.0-16.0) L Hematocrit 34.5 % (37.0-47.0) L Mean Corpuscular Volume 83 FL (80-99) Mean Corpuscular Hemoglobin 26.9 PG (27.0-31.0) L Mean Corpuscular Hemoglobin Concent 32.3 G/DL (32.0-36.0) Red Cell Distribution Width 13.7 % (11.6-14.8) Platelet Count 194 K/UL (150-450) Mean Platelet Volume 9.4 FL (6.5-10.1) Neutrophils (%) (Auto) 48.1 % (45.0-75.0) Lymphocytes (%) (Auto) 34.0 % (20.0-45.0) Monocytes (%) (Auto) 9.4 % (1.0-10.0) Eosinophils (%) (Auto) 7.0 % (0.0-3.0) H Basophils (%) (Auto) 1.4 % (0.0-2.0) Erythrocyte Sedimentation Rate 16 MM/HR (0-30) Sodium Level 141 MMOL/L (136-145) Potassium Level 3.8 MMOL/L (3.5-5.1) Chloride Level 104 MMOL/L (98-107) Carbon Dioxide Level 31 MMOL/L (21-32) Anion Gap 6 mmol/L (5-15) Blood Urea Nitrogen 18 mg/dL (7-18) Creatinine 0.7 MG/DL (0.55-1.30) Estimat Glomerular Filtration Rate mL/min (>60) Glucose Level 131 MG/DL (74-106) H Calcium Level 9.0 MG/DL (8.5-10.1) Phosphorus Level 3.5 MG/DL (2.5-4.9) Magnesium Level 1.2 MG/DL (1.8-2.4) L Total Bilirubin 0.3 MG/DL (0.2-1.0) Aspartate Amino Transf (AST/SGOT) 17 U/L (15-37) Alanine Aminotransferase (ALT/SGPT) 17 U/L (12-78) Alkaline Phosphatase 92 U/L (46-116) C-Reactive Protein, Quantitative 1.0 mg/dL (0.00-0.90) H Total Protein 7.1 G/DL (6.4-8.2) Albumin 3.0 G/DL (3.4-5.0) L Globulin 4.1 g/dL Albumin/Globulin Ratio 0.7 (1.0-2.7) L Microbiology Date/Time Source Procedure Growth Status 02/06/17 18:43 Urine,Clean Catch Urine Culture - Final Proteus Mirabilis Complete Objective HEAD AND NECK: No JVD. LUNGS: Clear. CARDIOVASCULAR: Regular S1 and S2 with no gallop or murmur. ABDOMEN: Soft and nontender. EXTREMITIES: There is no pitting edema. The pacemaker in the left subclavian is intact. JAMAAL LAWS Feb 09, 2017 14:47
--- NOTE | 2017-02-09 14:48 | Diagnostic Imaging Report ---
Indication: Hematuria, history of renal calculi Technique: Precontrast spiral acquisitions obtained through the abdomen and pelvis. Subsequently, IV administration nonionic contrast. Multiphasic spiral acquisitions obtained through the abdomen and pelvis. Multiplanar reconstructions were generated. Total dose length product 4303 mGycm. CTDIvol(s) 25, 8, 105, 21, 25, 25 mGy. Radiation dose was minimized using automated exposure control Comparison: 08/29/2015 Findings: There is a 10 x 7 mm calculus in the left renal pelvis, which is new since the previous exam. An anterior lower pole calyceal calculus measures 5 mm in diameter, also not evident previously. There is a 9 mm lower pole calyceal calculus which was evident previously, but is considerably larger on the current exam. There are calcifications are also seen within the parks of a 10 mm posterior interpolar region mass. The mass was evident previously but the calcifications are a new finding. The right kidney demonstrates a 5 mm calculus which was not evident previously. No hydronephrosis or hydroureter. No ureteral calculi are evident. In the anterior interpolar region of the left kidney, there is a 2.3 cm mass which demonstrates approximately 24 Hounsfield unit attenuation, no evident enhancement between the various phases, and no significant change since previous exam. In the upper pole of the left kidney, there is a septated 2.2 cm cyst versus 2 adjacent cysts, also evident previously and unchanged. In the posterior interpolar region, there is a 1.5 cm mass which demonstrates high (65 Hounsfield unit) attenuation on precontrast images, and does not enhance, presumably represents a hyperdense proteinaceous cyst. This is also evident on the previous study. As mentioned earlier, there a calcified exophytic 1 cm lesion which is somewhat small for characterization but does not appear to enhance, in the posterior interpolar region. Calcifications are new since the previous study. In the left kidney lower pole, there is a somewhat hyperdense 1.5 cm diameter lesion which is somewhat hyperdense on precontrast images, does not enhance on the other phases of the exam. This lesion is also evident previously and appears unchanged. An anterior interpolar region lesion on the right was evident previously, previously appeared hyperdense, but demonstrates fluid attenuation on the current images. There are multiple bilateral subcentimeter low-attenuation lesions which are too small to characterize. No new or enhancing masses or demonstrated. Delayed phase images demonstrate normal renal collecting system contrast opacification and ureteral opacification. The bladder is normal. The gallbladder is surgically absent. The liver demonstrates a 1.5 cm cyst in segment 2. A subcentimeter low-attenuation lesion is seen in segment 6, unchanged. The bile ducts are nondilated. The pancreas is unremarkable. The spleen is unremarkable. 2.4 cm mass in the left adrenal is unchanged. The right adrenal is unremarkable. No retroperitoneal or mesenteric mass or adenopathy. No pelvic mass or adenopathy. Uterus is not visualized, presumed surgically absent. The adnexal structures are unremarkable. The colon demonstrates a moderate amount of retained fecal material. Scattered diverticula are noted. No definite evidence of diverticulitis. The appendix is normal. No small bowel distention. This no free or loculated intraperitoneal air or fluid. There is a small fat-containing umbilical hernia again demonstrated. Dependent atelectatic changes are seen at both lung bases. There is a small right pleural effusion. The bones demonstrate degenerative spondylosis changes. There is an old healed fracture deformity of the left inferior pubic ramus. Impression: Bilateral renal calculi as detailed above. Overall stone burden increased since prior study of 08/29/2015. No evidence of obstructive uropathy Bilateral renal cysts. Bilateral non -- enhancing intermediate density renal lesions, overall stable, most likely benign complex cysts. However, given the complex nature, multiplicity, and interval development of mural calcifications in one of the lesions on the left, further evaluation with renal sonography is recommended to confirm continued cystic nature of these Stable 2.4 cm left adrenal mass. Attenuation is nonspecific, and further short interval CT followup is recommended. Basilar dependent atelectasis bilaterally. Small right pleural effusion Other findings as noted, including colonic diverticulosis, old healed left inferior pubic ramus fracture deformity, degenerative spondylosis, small fat-containing umbilical hernia, stable liver cysts, prior cholecystectomy, prior hysterectomy The CT scanner at [facility] is accredited by the [employer] and the scans are performed using protocols designed to limit radiation exposure to as low as reasonably achievable to attain images of sufficient resolution adequate for diagnostic evaluation.
[2017-02-09 16:00] VITALS: BP 126/77
[2017-02-09 20:00] VITALS: BP 132/72
[2017-02-09] MEDS: cefTRIAXone 2 GM in NS 110 ML IVPB SCH (21:10)
[2017-02-10] VITALS: BP 115/81
[2017-02-10 04:00] VITALS: BP 122/72
[2017-02-10] MEDS: NovoLOG Insulin Flexpen SUBQ SCH ×4 (06:11→20:45)
[2017-02-10 06:22] LABS: BASOPHILS % (AUTO) 1.2 % (0.0-2.0); EOSINOPHILS % (AUTO) 7.4 % (0.0-3.0); LYMPHOCYTES % (AUTO) 34.2 % (20.0-45.0); MEAN CORPUSCULAR HEMOGLOBIN 26.7 PG (27.0-31.0); MEAN CORPUSCULAR HGB CONC 31.8 G/DL (32.0-36.0); MEAN CORPUSCULAR VOLUME 84 FL (80-99); MEAN PLATELET VOLUME 8.9 FL (6.5-10.1); MONOCYTES % (AUTO) 6.9 % (1.0-10.0); NEUTROPHILS % (AUTO) 50.3 % (45.0-75.0); PLATELET COUNT 207 K/UL (150-450); RED BLOOD COUNT 4.48 M/UL (4.20-5.40); RED CELL DISTRIBUTION WIDTH 14.1 % (11.6-14.8); WHITE BLOOD COUNT 5.4 K/UL (4.8-10.8)
[2017-02-10 07:15] LABS: ANION GAP 6 mmol/L (5-15); CALCIUM 9.2 MG/DL (8.5-10.1); CARBON DIOXIDE 31 MMOL/L (21-32); CHLORIDE 103 MMOL/L (98-107); CREATININE 0.7 MG/DL (0.55-1.30); POTASSIUM 3.9 MMOL/L (3.5-5.1); SODIUM 140 MMOL/L (136-145)
[2017-02-10 08:00] VITALS: BP 120/66
[2017-02-10] MEDS: Montelukast 10mg tablet ORAL SCH (08:48)
[2017-02-10] MEDS: Lisinopril 20mg tab ORAL SCH (08:48)
[2017-02-10] MEDS: Memantine 5 MG TAB ORAL SCH ×2 (08:48→18:20)
[2017-02-10] MEDS: Furosemide 40mg tab ORAL SCH (08:48)
[2017-02-10] MEDS: metFORMIN 500mg tab ORAL SCH ×2 (08:48→18:20)
[2017-02-10] MEDS: KCl 10% 20 mEq/15ml liquid ORAL SCH (08:48)
[2017-02-10] MEDS: Spironolactone 25mg tab ORAL SCH (08:48)
[2017-02-10] MEDS: Docusate 100mg cap ORAL SCH ×2 (08:48→21:00)
[2017-02-10] MEDS: Dyna-Hex 2% Top Sol 2oz TOPIC SCH (08:49)
--- NOTE | 2017-02-10 10:57 | Cardiac Electrophysiology PN ---
Assessment/Plan Assessment/Plan 1. Paroxysmal atrial fibrillation. Remained sinus rhythm. Resume Coreg and Xarelto if OK with urology OR id 2. Status post [employer] pacemaker implantation. Nl FX 3. Hypertension. Continue Lisinopril 20 daily, Lasix 40 mg daily, and Aldactone 25 mg daily. 4. History of congestive heart failure. Echocardiogram EF 45% On Lisinopril , Aldactone and Lasix. 5. Hematuria. Proteus morabilis. Continue cefepime for now. Resolved with Abx per ID DW RN Subjective Subjective Comfortable in NAD. No chest pain or SOB.Had CT abdomen and pelvis yesterday no acute findings. Objective Last 24 Hour Vital Signs Date Time Temp Pulse Resp B/P (MAP) Pulse Ox O2 Delivery O2 Flow Rate FiO2 02/10/17 08:48 120/66 02/10/17 08:00 97.3 80 21 120/66 92 Room Air 02/10/17 08:00 97.3 80 21 120/66 92 Room Air 02/10/17 04:00 97.2 52 19 122/72 99 Nasal Cannula 2.0 02/10/17 00:00 97.2 84 19 115/81 98 Room Air 02/09/17 20:00 97.0 69 19 132/72 99 Nasal Cannula 2.0 02/09/17 16:00 97.3 88 20 126/77 100 Nasal Cannula 2.0 02/09/17 12:00 118/77 Laboratory Tests Test 02/10/17 05:35 White Blood Count 5.4 K/UL (4.8-10.8) Red Blood Count 4.48 M/UL (4.20-5.40) Hemoglobin 12.0 G/DL (12.0-16.0) Hematocrit 37.6 % (37.0-47.0) Mean Corpuscular Volume 84 FL (80-99) Mean Corpuscular Hemoglobin 26.7 PG (27.0-31.0) L Mean Corpuscular Hemoglobin Concent 31.8 G/DL (32.0-36.0) L Red Cell Distribution Width 14.1 % (11.6-14.8) Platelet Count 207 K/UL (150-450) Mean Platelet Volume 8.9 FL (6.5-10.1) Neutrophils (%) (Auto) 50.3 % (45.0-75.0) Lymphocytes (%) (Auto) 34.2 % (20.0-45.0) Monocytes (%) (Auto) 6.9 % (1.0-10.0) Eosinophils (%) (Auto) 7.4 % (0.0-3.0) H Basophils (%) (Auto) 1.2 % (0.0-2.0) Sodium Level 140 MMOL/L (136-145) Potassium Level 3.9 MMOL/L (3.5-5.1) Chloride Level 103 MMOL/L (98-107) Carbon Dioxide Level 31 MMOL/L (21-32) Anion Gap 6 mmol/L (5-15) Blood Urea Nitrogen 16 mg/dL (7-18) Creatinine 0.7 MG/DL (0.55-1.30) Estimat Glomerular Filtration Rate mL/min (>60) Glucose Level 147 MG/DL (74-106) H Calcium Level 9.2 MG/DL (8.5-10.1) Objective HEAD AND NECK: No JVD. LUNGS: Clear. CARDIOVASCULAR: Regular S1 and S2 with no gallop or murmur. ABDOMEN: Soft and nontender. EXTREMITIES: There is no pitting edema. The pacemaker in the left subclavian is intact. JAMAAL LAWS Feb 10, 2017 10:57
[2017-02-10 12:00] VITALS: BP 115/67
--- NOTE | 2017-02-10 13:11 | Pulmonology Progress Note ---
Assessment/Plan Problems: (1) Hematuria (2) Sepsis (3) UTI (urinary tract infection) (4) COPD (chronic obstructive pulmonary disease) (5) Pacemaker (6) Hepatitis C Assessment/Plan constipated, wants an, Enema wound care continue abx check cultures ID consult appreciated check labs, meds reviewed. Subjective ROS Limited/Unobtainable: No Interval Events: constipated Constitutional: Reports: no symptoms HEENT: Repors: no symptoms Respiratory: Reports: no symptoms Allergies: Coded Allergies: ERYTHROMYCIN BASE (Verified Allergy, Intermediate, 08/28/16) CODEINE (Verified Allergy, Unknown, 08/28/16) MEPERIDINE (Verified Allergy, Unknown, 08/28/16) PENICILLINS (Verified Allergy, Unknown, 08/28/16) Objective Last 24 Hour Vital Signs Date Time Temp Pulse Resp B/P (MAP) Pulse Ox O2 Delivery O2 Flow Rate FiO2 02/10/17 12:00 97.1 70 21 115/67 98 Nasal Cannula 2.0 02/10/17 12:00 97.1 70 21 115/67 98 Nasal Cannula 2.0 02/10/17 08:48 120/66 02/10/17 08:00 97.3 80 21 120/66 92 Room Air 02/10/17 08:00 97.3 80 21 120/66 92 Room Air 02/10/17 04:00 97.2 52 19 122/72 99 Nasal Cannula 2.0 02/10/17 00:00 97.2 84 19 115/81 98 Room Air 02/09/17 20:00 97.0 69 19 132/72 99 Nasal Cannula 2.0 02/09/17 16:00 97.3 88 20 126/77 100 Nasal Cannula 2.0 General Appearance: WD/WN HEENT: normocephalic, atraumatic Respiratory/Chest: chest wall non-tender, lungs clear Cardiovascular: normal peripheral pulses, normal rate, no JVD Abdomen: normal bowel sounds, soft, non tender Genitourinary: normal external genitalia Extremities: no cyanosis Skin: no rash Laboratory Tests 02/10/17 05:35: White Blood Count 5.4, Red Blood Count 4.48, Hemoglobin 12.0, Hematocrit 37.6, Mean Corpuscular Volume 84, Mean Corpuscular Hemoglobin 26.7L, Mean Corpuscular Hemoglobin Concent 31.8L, Red Cell Distribution Width 14.1, Platelet Count 207, Mean Platelet Volume 8.9, Neutrophils (%) (Auto) 50.3, Lymphocytes (%) (Auto) 34.2, Monocytes (%) (Auto) 6.9, Eosinophils (%) (Auto) 7.4H, Basophils (%) (Auto ) 1.2, Sodium Level 140, Potassium Level 3.9, Chloride Level 103, Carbon Dioxide Level 31, Anion Gap 6, Blood Urea Nitrogen 16, Creatinine 0.7, Estimat Glomerular Filtration Rate , Glucose Level 147H, Calcium Level 9.2 Current Medications Medications (Trade) Dose Ordered Sig/Joann Route PRN Reason Start Time Stop Time Status Last Admin Dose Admin Acetaminophen (Tylenol) 650 mg Q4H PRN ORAL Mild Pain / TEMP>101 02/06/17 22:00 03/08/17 21:59 Acetaminophen/ Hydrocodone Bitart ([place] 5/325) 1 tab Q6H PRN ORAL For Pain 02/06/17 21:30 02/13/17 21:29 Future hold Atorvastatin Calcium (Lipitor) 10 mg BEDTIME ORAL 02/07/17 21:00 03/09/17 20:59 02/09/17 21:09 Carvedilol (Coreg) 3.125 mg EVERY 12 HOURS ORAL 02/10/17 21:00 03/12/17 20:59 Ceftriaxone Sodium 2 gm/ Sodium Chloride 110 ml @ 220 mls/hr Q24H IVPB 02/09/17 20:00 02/16/17 19:59 02/09/17 21:10 Chlorhexidine Gluconate (Della-Hex 2%) 1 applic DAILY TOPIC 02/07/17 09:00 03/09/17 08:59 02/10/17 08:49 Dextrose (Dextrose 50%) STAT PRN IV Hypoglycemia 02/06/17 21:30 03/08/17 21:29 Docusate Sodium (Colace) 100 mg EVERY 12 HOURS ORAL 02/07/17 09:00 03/09/17 08:59 02/10/17 08:48 Furosemide (Lasix) 40 mg DAILY ORAL 02/07/17 09:00 03/09/17 08:59 02/10/17 08:48 Gabapentin (Neurontin) 100 mg TID ORAL 02/07/17 09:00 03/09/17 08:59 02/10/17 08:48 Ibuprofen (Motrin) 600 mg Q8H PRN ORAL Moderate Pain (Pain Scale 4-6) 02/09/17 07:45 03/11/17 07:44 Insulin Aspart (NovoLOG) BEFORE MEALS AND HS SUBQ 02/07/17 06:30 03/09/17 06:29 02/10/17 12:17 Lisinopril (Prinivil) 20 mg DAILY ORAL 02/10/17 09:00 03/12/17 08:59 02/10/17 08:48 Memantine (Namenda) 5 mg BID ORAL 02/07/17 18:00 03/09/17 17:59 02/10/17 08:48 Metformin HCl (Glucophage) 500 mg TWICE A DAY ORAL 02/07/17 09:00 03/09/17 08:59 02/10/17 08:48 Montelukast Sodium (Singulair) 10 mg DAILY ORAL 02/07/17 09:00 03/09/17 08:59 02/10/17 08:48 Pantoprazole (Protonix) 40 mg DAILY ORAL 02/07/17 09:00 03/09/17 08:59 02/10/17 08:48 Potassium Chloride (KCl 10% 20 mEq oral solution) 10 meq DAILY ORAL 02/07/17 09:00 03/09/17 08:59 02/10/17 08:48 Sodium Phosphate (Fleet's Sodium Phosl Enema) 133 ml ONCE ONCE RECTAL 02/10/17 13:15 02/10/17 13:16 UNV Spironolactone (Aldactone) 25 mg DAILY ORAL 02/07/17 09:00 03/09/17 08:59 02/10/17 08:48 JONH RODRIGUEZ Feb 10, 2017 13:11
[2017-02-10] MEDS ORDERED: Fleet's Enema 133ml RECTAL ONE (13:30)
--- NOTE | 2017-02-10 14:28 | Infectious Diseases Prog Note ---
Assessment/Plan Assessment/Plan Assesment: Afebrile, no leukocytosis Proteus UTI infected stone (+LCVAT) CT: Bilateral renal calculi as detailed above. Overall stone burden increased since prior study of 08/29/2015. No evidence of obstructive uropathy -u/a wbc 20-30, nit +, leuk +3; ucx >100k P. 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 Hypertension. Chronic obstructive pulmonary disease. SSS s/p PPM in the left anterior chest wall HLD hx of R and L ankle fx Plan: - cont Ceftriaxone; d# 2 -SP d#4 IV Cefepime abx 02/09 -s/p 1 dose Alisson/Ceftriaxone 02/06 -s/p 10 d Ertapenem 01/28 -s/p 3d Cefepime 01/19 -s/p 1d Vanco 01/18 -s/p 1 d Meropenem 01/16 -Consider urology evaluation -f/u cx -Monitor CBC/BMP, temperatures Subjective Constitutional: Denies: no symptoms, fever, chills, fatigue, anorexia, drenching sweats, other Allergies: Coded Allergies: ERYTHROMYCIN BASE (Verified Allergy, Intermediate, 08/28/16) CODEINE (Verified Allergy, Unknown, 08/28/16) MEPERIDINE (Verified Allergy, Unknown, 08/28/16) PENICILLINS (Verified Allergy, Unknown, 08/28/16) Objective Vital Signs Last 24 Hour Vital Signs Date Time Temp Pulse Resp B/P (MAP) Pulse Ox O2 Delivery O2 Flow Rate FiO2 02/10/17 12:00 97.1 70 21 115/67 98 Nasal Cannula 2.0 02/10/17 12:00 97.1 70 21 115/67 98 Nasal Cannula 2.0 02/10/17 08:48 120/66 02/10/17 08:00 97.3 80 21 120/66 92 Room Air 02/10/17 08:00 97.3 80 21 120/66 92 Room Air 02/10/17 04:00 97.2 52 19 122/72 99 Nasal Cannula 2.0 02/10/17 00:00 97.2 84 19 115/81 98 Room Air 10/30/17 20:00 97.0 69 19 132/72 99 Nasal Cannula 2.0 02/09/17 16:00 97.3 88 20 126/77 100 Nasal Cannula 2.0 Height (Feet): 5 Height (Inches): 6.00 Weight (Pounds): 165 HEENT: anicteric Respiratory/Chest: no respiratory distress Cardiovascular: regular rhythm Abdomen: soft, non tender Laboratory Tests Test 02/10/17 05:35 White Blood Count 5.4 K/UL (4.8-10.8) Red Blood Count 4.48 M/UL (4.20-5.40) Hemoglobin 12.0 G/DL (12.0-16.0) Hematocrit 37.6 % (37.0-47.0) Mean Corpuscular Volume 84 FL (80-99) Mean Corpuscular Hemoglobin 26.7 PG (27.0-31.0) L Mean Corpuscular Hemoglobin Concent 31.8 G/DL (32.0-36.0) L Red Cell Distribution Width 14.1 % (11.6-14.8) Platelet Count 207 K/UL (150-450) Mean Platelet Volume 8.9 FL (6.5-10.1) Neutrophils (%) (Auto) 50.3 % (45.0-75.0) Lymphocytes (%) (Auto) 34.2 % (20.0-45.0) Monocytes (%) (Auto) 6.9 % (1.0-10.0) Eosinophils (%) (Auto) 7.4 % (0.0-3.0) H Basophils (%) (Auto) 1.2 % (0.0-2.0) Sodium Level 140 MMOL/L (136-145) Potassium Level 3.9 MMOL/L (3.5-5.1) Chloride Level 103 MMOL/L (98-107) Carbon Dioxide Level 31 MMOL/L (21-32) Anion Gap 6 mmol/L (5-15) Blood Urea Nitrogen 16 mg/dL (7-18) Creatinine 0.7 MG/DL (0.55-1.30) Estimat Glomerular Filtration Rate mL/min (>60) Glucose Level 147 MG/DL (74-106) H Calcium Level 9.2 MG/DL (8.5-10.1) Current Medications Medications (Trade) Dose Ordered Sig/Joann Route PRN Reason Start Time Stop Time Status Last Admin Dose Admin Acetaminophen (Tylenol) 650 mg Q4H PRN ORAL Mild Pain / TEMP>101 02/06/17 22:00 03/08/17 21:59 Acetaminophen/ Hydrocodone Bitart ([place] 5/325) 1 tab Q6H PRN ORAL For Pain 02/06/17 21:30 02/13/17 21:29 Future hold Atorvastatin Calcium (Lipitor) 10 mg BEDTIME ORAL 02/07/17 21:00 03/09/17 20:59 02/09/17 21:09 Carvedilol (Coreg) 3.125 mg EVERY 12 HOURS ORAL 02/10/17 21:00 03/12/17 20:59 Ceftriaxone Sodium 2 gm/ Sodium Chloride 110 ml @ 220 mls/hr Q24H IVPB 02/09/17 20:00 02/16/17 19:59 02/09/17 21:10 Chlorhexidine Gluconate (Della-Hex 2%) 1 applic DAILY TOPIC 02/07/17 09:00 03/09/17 08:59 02/10/17 08:49 Dextrose (Dextrose 50%) STAT PRN IV Hypoglycemia 02/06/17 21:30 03/08/17 21:29 Docusate Sodium (Colace) 100 mg EVERY 12 HOURS ORAL 02/07/17 09:00 03/09/17 08:59 02/10/17 08:48 Furosemide (Lasix) 40 mg DAILY ORAL 02/07/17 09:00 03/09/17 08:59 02/10/17 08:48 Gabapentin (Neurontin) 100 mg TID ORAL 02/07/17 09:00 03/09/17 08:59 02/10/17 13:17 Ibuprofen (Motrin) 600 mg Q8H PRN ORAL Moderate Pain (Pain Scale 4-6) 02/09/17 07:45 03/11/17 07:44 Insulin Aspart (NovoLOG) BEFORE MEALS AND HS SUBQ 02/07/17 06:30 03/09/17 06:29 02/10/17 12:17 Lisinopril (Prinivil) 20 mg DAILY ORAL 02/10/17 09:00 03/12/17 08:59 10/31/17 08:48 Memantine (Namenda) 5 mg BID ORAL 02/07/17 18:00 03/09/17 17:59 02/10/17 08:48 Metformin HCl (Glucophage) 500 mg TWICE A DAY ORAL 02/07/17 09:00 03/09/17 08:59 02/10/17 08:48 Montelukast Sodium (Singulair) 10 mg DAILY ORAL 02/07/17 09:00 03/09/17 08:59 02/10/17 08:48 Pantoprazole (Protonix) 40 mg DAILY ORAL 02/07/17 09:00 03/09/17 08:59 02/10/17 08:48 Potassium Chloride (KCl 10% 20 mEq oral solution) 10 meq DAILY ORAL 02/07/17 09:00 03/09/17 08:59 02/10/17 08:48 Spironolactone (Aldactone) 25 mg DAILY ORAL 02/07/17 09:00 03/09/17 08:59 02/10/17 08:48 FAHAD SMITH M.D. Feb 10, 2017 14:28
[2017-02-10 16:00] VITALS: BP 115/71
[2017-02-10] MEDS ORDERED: CEPHALEXIN500 MG ORAL (16:19)
[2017-02-10] MEDS ORDERED: NS 275ml ONE (16:26)
[2017-02-10] MEDS ORDERED: Tubing IV Secondary IV ONE (16:26)
--- NOTE | 2017-02-10 18:27 | Internal Med Progress Note ---
Subjective Date of Service: Feb 10, 2017 Physician Name Chema Colin Attending Physician Zion Echevarria MD Current Medications Medications (Trade) Dose Ordered Sig/Joann Route PRN Reason Start Time Stop Time Status Last Admin Dose Admin Acetaminophen (Tylenol) 650 mg Q4H PRN ORAL Mild Pain / TEMP>101 02/06/17 22:00 03/08/17 21:59 Acetaminophen/ Hydrocodone Bitart ([place] 5/325) 1 tab Q6H PRN ORAL For Pain 02/06/17 21:30 02/13/17 21:29 Future hold Atorvastatin Calcium (Lipitor) 10 mg BEDTIME ORAL 02/07/17 21:00 03/09/17 20:59 02/09/17 21:09 Carvedilol (Coreg) 3.125 mg EVERY 12 HOURS ORAL 02/10/17 21:00 03/12/17 20:59 Ceftriaxone Sodium 2 gm/ Sodium Chloride 110 ml @ 220 mls/hr Q24H IVPB 02/09/17 20:00 02/16/17 19:59 02/09/17 21:10 Chlorhexidine Gluconate (Della-Hex 2%) 1 applic DAILY TOPIC 02/07/17 09:00 03/09/17 08:59 02/10/17 08:49 Dextrose (Dextrose 50%) STAT PRN IV Hypoglycemia 02/06/17 21:30 03/08/17 21:29 Docusate Sodium (Colace) 100 mg EVERY 12 HOURS ORAL 02/07/17 09:00 03/09/17 08:59 02/10/17 08:48 Furosemide (Lasix) 40 mg DAILY ORAL 02/07/17 09:00 03/09/17 08:59 02/10/17 08:48 Gabapentin (Neurontin) 100 mg TID ORAL 02/07/17 09:00 03/09/17 08:59 02/10/17 13:17 Ibuprofen (Motrin) 600 mg Q8H PRN ORAL Moderate Pain (Pain Scale 4-6) 02/09/17 07:45 03/11/17 07:44 Insulin Aspart (NovoLOG) BEFORE MEALS AND HS SUBQ 02/07/17 06:30 03/09/17 06:29 02/10/17 12:17 Lisinopril (Prinivil) 20 mg DAILY ORAL 02/10/17 09:00 03/12/17 08:59 02/10/17 08:48 Memantine (Namenda) 5 mg BID ORAL 02/07/17 18:00 03/09/17 17:59 02/10/17 08:48 Metformin HCl (Glucophage) 500 mg TWICE A DAY ORAL 02/07/17 09:00 03/09/17 08:59 02/10/17 08:48 Montelukast Sodium (Singulair) 10 mg DAILY ORAL 02/07/17 09:00 03/09/17 08:59 02/10/17 08:48 Pantoprazole (Protonix) 40 mg DAILY ORAL 02/07/17 09:00 03/09/17 08:59 02/10/17 08:48 Potassium Chloride (KCl 10% 20 mEq oral solution) 10 meq DAILY ORAL 02/07/17 09:00 03/09/17 08:59 02/10/17 08:48 Spironolactone (Aldactone) 25 mg DAILY ORAL 02/07/17 09:00 03/09/17 08:59 02/10/17 08:48 Allergies: Coded Allergies: ERYTHROMYCIN BASE (Verified Allergy, Intermediate, 08/28/16) CODEINE (Verified Allergy, Unknown, 08/28/16) MEPERIDINE (Verified Allergy, Unknown, 08/28/16) PENICILLINS (Verified Allergy, Unknown, 08/28/16) Subjective 76 YO F admitted with hematuria. Now UTI. Cover for Int Med-Dr Echevarria. Patient unable to discharge today-no ride or support at home Objective Last Vital Signs Date Time Temp Pulse Resp B/P (MAP) Pulse Ox O2 Delivery O2 Flow Rate FiO2 02/10/17 12:00 97.1 70 21 115/67 98 Nasal Cannula 2.0 Laboratory Tests Test 02/10/17 05:35 White Blood Count 5.4 K/UL (4.8-10.8) Red Blood Count 4.48 M/UL (4.20-5.40) Hemoglobin 12.0 G/DL (12.0-16.0) Hematocrit 37.6 % (37.0-47.0) Mean Corpuscular Volume 84 FL (80-99) Mean Corpuscular Hemoglobin 26.7 PG (27.0-31.0) L Mean Corpuscular Hemoglobin Concent 31.8 G/DL (32.0-36.0) L Red Cell Distribution Width 14.1 % (11.6-14.8) Platelet Count 207 K/UL (150-450) Mean Platelet Volume 8.9 FL (6.5-10.1) Neutrophils (%) (Auto) 50.3 % (45.0-75.0) Lymphocytes (%) (Auto) 34.2 % (20.0-45.0) Monocytes (%) (Auto) 6.9 % (1.0-10.0) Eosinophils (%) (Auto) 7.4 % (0.0-3.0) H Basophils (%) (Auto) 1.2 % (0.0-2.0) Sodium Level 140 MMOL/L (136-145) Potassium Level 3.9 MMOL/L (3.5-5.1) Chloride Level 103 MMOL/L (98-107) Carbon Dioxide Level 31 MMOL/L (21-32) Anion Gap 6 mmol/L (5-15) Blood Urea Nitrogen 16 mg/dL (7-18) Creatinine 0.7 MG/DL (0.55-1.30) Estimat Glomerular Filtration Rate mL/min (>60) Glucose Level 147 MG/DL (74-106) H Calcium Level 9.2 MG/DL (8.5-10.1) Objective General Appearance: WD/WN, no apparent distress, alert EENT: PERRL/EOMI, normal ENT inspection, TMs normal Neck: non-tender, normal alignment, supple Cardiovascular: normal peripheral pulses, normal rate, regular rhythm, no gallop/murmur, no JVD Respiratory/Chest: chest wall non-tender, lungs clear, normal breath sounds, no respiratory distress, no accessory muscle use Abdomen: normal bowel sounds, non tender, soft, no organomegaly, no mass Extremities: normal range of motion, non-tender 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 Continue cefepime for now. See ID note. (3) Hematuria Assessment & Plan: CT abdomen/pelvis = bilat renal calculus (4) Pacemaker (5) Uncontrolled diabetes mellitus Assessment & Plan: Continue metformin and novolog sliding scale. (6) COPD (chronic obstructive pulmonary disease) (7) Sick sinus syndrome Assessment & Plan: see cardiology note. Status: progressing Assessment/Plan D/C home in am on oral CHEMA Rowe Feb 10, 2017 18:27
[2017-02-10 20:00] VITALS: BP 113/69
[2017-02-10] MEDS: cefTRIAXone 2 GM in NS 110 ML IVPB SCH (20:36)
[2017-02-11] VITALS: BP_SYST 111; BP_SYST 127; BP_DIAS 60; BP_DIAS 67
[2017-02-11 04:00] VITALS: BP 100/70
[2017-02-11] MEDS: NovoLOG Insulin Flexpen SUBQ SCH ×2 (06:12→11:14)
[2017-02-11 06:28] LABS: BASOPHILS % (AUTO) 0.9 % (0.0-2.0); EOSINOPHILS % (AUTO) 6.4 % (0.0-3.0); LYMPHOCYTES % (AUTO) 38.4 % (20.0-45.0); MEAN CORPUSCULAR HEMOGLOBIN 27.8 PG (27.0-31.0); MEAN CORPUSCULAR VOLUME 84 FL (80-99); MEAN PLATELET VOLUME 8.5 FL (6.5-10.1); MONOCYTES % (AUTO) 5.2 % (1.0-10.0); NEUTROPHILS % (AUTO) 49.1 % (45.0-75.0); PLATELET COUNT 193 K/UL (150-450); RED BLOOD COUNT 4.15 M/UL (4.20-5.40); RED CELL DISTRIBUTION WIDTH 13.5 % (11.6-14.8); WHITE BLOOD COUNT 5.6 K/UL (4.8-10.8)
[2017-02-11 07:16] LABS: ANION GAP 9 mmol/L (5-15); CALCIUM 9.1 MG/DL (8.5-10.1); CARBON DIOXIDE 31 MMOL/L (21-32); CHLORIDE 102 MMOL/L (98-107); CREATININE 0.7 MG/DL (0.55-1.30); POTASSIUM 3.9 MMOL/L (3.5-5.1); SODIUM 141 MMOL/L (136-145)
[2017-02-11 07:45] VITALS: BP 114/65
--- NOTE | 2017-02-11 08:18 | Wound Care Consultation ---
Wound Assessment Wound Assessment #1: Wound Number: 1 Wound Present on Admission: Yes New Wound: No Status Change of Wound: No Wound Location Body Site Modif: mid Wound Location Body Site: sacral Wound Type: pressure ulcer Dyan Test: Does not Dyan Pressure Ulcer Stage: III - resurfaced scar tissue appearing stage 3 Wound Thickness: Full Thickness Wound Length: 0.8 Wound Width: 0.5 Wound Depth: 0.1 Percent of Wound [place]/Red: 100 Other Colors Identified: patient has extensive full thickness scar tissue to sacral site. Wound Drainage Description: Serosanguineous Wound Drainage Amount: Scant Wound Drainage Odor: None/Absent Tissue Surrounding Wound: Macerated Wound General Appearance: Reddened Wound Assessment #2: Wound Number: 2 Wound Present on Admission: Yes New Wound: No Status Change of Wound: No Wound Location Body Site Modif: left, lower, posterior Wound Location Body Site: back Wound Type: other - redness.intact noted precision grinder in color from admitted photo Dyan Test: Dyan Wound Drainage Amount: None Wound Drainage Odor: None/Absent Tissue Surrounding Wound: Intact Wound General Appearance: Open to air Wound Comment #1 resurfaced stage 3 to mid sacral. extensive full thickness scar tissue to sacral area. #2 left posterior lower back resolving redness. Recommendation. -Local wound care as ordered. -Turn and reposition. -Keep clean and dry. -Optimize nutrition. -offload sacral site. -Assess and notify MD for any further changes of condition to skin present. upon assessment noted extensive full thickness scar tissue to mid sacral extending to left and right sacral and buttocks. per patient has had history of open wounds to sacral site, per patient they have gotten better. pt aware and alert of opening,made aware of recommended treatment and repositioning off loading area to promote healing, verbalizes she understands. patient spr low air loss mattress intact and flowing properly, repositioned to side to offload area, call light kept within reach, bed in low position, bed alarm intact, patient left safe. MICHAEL TAMAYO Feb 11, 2017 08:18
[2017-02-11] MEDS: metFORMIN 500mg tab ORAL SCH (08:20)
[2017-02-11] MEDS: KCl 10% 20 mEq/15ml liquid ORAL SCH (08:20)
[2017-02-11] MEDS: Docusate 100mg cap ORAL SCH (08:20)
[2017-02-11] MEDS: Montelukast 10mg tablet ORAL SCH (08:20)
[2017-02-11] MEDS: Lisinopril 20mg tab ORAL SCH (08:20)
[2017-02-11] MEDS: Memantine 5 MG TAB ORAL SCH (08:20)
[2017-02-11] MEDS: Spironolactone 25mg tab ORAL SCH (08:21)
[2017-02-11] MEDS: Furosemide 40mg tab ORAL SCH (08:21)
[2017-02-11] MEDS: Dyna-Hex 2% Top Sol 2oz TOPIC SCH (08:22)
--- NOTE | 2017-02-11 09:01 | Infectious Diseases Prog Note ---
Assessment/Plan Assessment/Plan Assesment: Afebrile, no leukocytosis Proteus UTI infected stone (+LCVAT) CT: Bilateral renal calculi as detailed above. Overall stone burden increased since prior study of 08/29/2015. No evidence of obstructive uropathy -u/a wbc 20-30, nit +, leuk +3; ucx >100k P. 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 Hypertension. Chronic obstructive pulmonary disease. SSS s/p PPM in the left anterior chest wall HLD hx of R and L ankle fx Plan: - cont Ceftriaxone; d# 3 / 7 , upon DC will change to Keflex to complete the course -SP d#4 IV Cefepime abx 02/09 -s/p 1 dose Alisson/Ceftriaxone 02/06 -s/p 10 d Ertapenem 01/28 -s/p 3d Cefepime 01/19 -s/p 1d Vanco 01/18 -s/p 1 d Meropenem 10 -Consider urology evaluation -Monitor CBC/BMP, temperatures Subjective Constitutional: Denies: no symptoms, fever, chills, fatigue, anorexia, drenching sweats, other Allergies: Coded Allergies: ERYTHROMYCIN BASE (Verified Allergy, Intermediate, 08/28/16) CODEINE (Verified Allergy, Unknown, 08/28/16) MEPERIDINE (Verified Allergy, Unknown, 08/28/16) PENICILLINS (Verified Allergy, Unknown, 08/28/16) Objective Vital Signs Last 24 Hour Vital Signs Date Time Temp Pulse Resp B/P (MAP) Pulse Ox O2 Delivery O2 Flow Rate FiO2 02/11/17 08:29 75 114/65 02/11/17 08:20 114/65 02/11/17 07:45 98.1 75 19 114/65 98 Nasal Cannula 2.0 02/11/17 04:00 98.1 74 20 100/70 98 Nasal Cannula 2.0 02/11/17 00:00 97.8 74 18 111/67 95 Nasal Cannula 2.0 02/10/17 20:36 70 113/59 02/10/17 20:00 97.9 75 18 113/69 96 Nasal Cannula 2.0 02/10/17 16:00 97.5 75 18 115/71 95 Nasal Cannula 2.0 02/10/17 12:00 97.1 70 21 115/ 98 Nasal Cannula 2.0 02/10/17 12:00 97.1 70 21 115 98 Nasal Cannula 2.0 Height (Feet): 5 Height (Inches): 6.00 Weight (Pounds): 165 HEENT: atraumatic Respiratory/Chest: lungs clear Cardiovascular: regular rhythm Abdomen: no organomegaly Laboratory Tests Test 02/11/17 04:00 White Blood Count 5.6 K/UL (4.8-10.8) Red Blood Count 4.15 M/UL (4.20-5.40) L Hemoglobin 11.5 G/DL (12.0-16.0) L Hematocrit 34.9 % (37.0-47.0) L Mean Corpuscular Volume 84 FL (80-99) Mean Corpuscular Hemoglobin 27.8 PG (27.0-31.0) Mean Corpuscular Hemoglobin Concent 33.0 G/DL (32.0-36.0) Red Cell Distribution Width 13.5 % (11.6-14.8) Platelet Count 193 K/UL (150-450) Mean Platelet Volume 8.5 FL (6.5-10.1) Neutrophils (%) (Auto) 49.1 % (45.0-75.0) Lymphocytes (%) (Auto) 38.4 % (20.0-45.0) Monocytes (%) (Auto) 5.2 % (1.0-10.0) Eosinophils (%) (Auto) 6.4 % (0.0-3.0) H Basophils (%) (Auto) 0.9 % (0.0-2.0) Sodium Level 141 MMOL/L (136-145) Potassium Level 3.9 MMOL/L (3.5-5.1) Chloride Level 102 MMOL/L (98-107) Carbon Dioxide Level 31 MMOL/L (21-32) Anion Gap 9 mmol/L (5-15) Blood Urea Nitrogen 17 mg/dL (7-18) Creatinine 0.7 MG/DL (0.55-1.30) Estimat Glomerular Filtration Rate mL/min (>60) Glucose Level 119 MG/DL (74-106) H Calcium Level 9.1 MG/DL (8.5-10.1) Current Medications Medications (Trade) Dose Ordered Sig/Joann Route PRN Reason Start Time Stop Time Status Last Admin Dose Admin Acetaminophen (Tylenol) 650 mg Q4H PRN ORAL Mild Pain / TEMP>101 02/06/17 22:00 03/08/17 21:59 Acetaminophen/ Hydrocodone Bitart ([place] 5/325) 1 tab Q6H PRN ORAL For Pain 02/06/17 21:30 02/13/17 21:29 Future hold Atorvastatin Calcium (Lipitor) 10 mg BEDTIME ORAL 02/07/17 21:00 03/09/17 20:59 02/10/17 20:36 Carvedilol (Coreg) 3.125 mg EVERY 12 HOURS ORAL 02/10/17 21:00 03/12/17 20:59 Ceftriaxone Sodium 2 gm/ Sodium Chloride 110 ml @ 220 mls/hr Q24H IVPB 02/09/17 20:00 02/16/17 19:59 02/10/17 20:36 Chlorhexidine Gluconate (Della-Hex 2%) 1 applic DAILY TOPIC 02/07/17 09:00 03/09/17 08:59 02/11/17 08:22 Dextrose (Dextrose 50%) STAT PRN IV Hypoglycemia 02/06/17 21:30 03/08/17 21:29 Docusate Sodium (Colace) 100 mg EVERY 12 HOURS ORAL 02/07/17 09:00 03/09/17 08:59 02/11/17 08:20 Furosemide (Lasix) 40 mg DAILY ORAL 02/07/17 09:00 03/09/17 08:59 02/11/17 08:21 Gabapentin (Neurontin) 100 mg TID ORAL 02/07/17 09:00 03/09/17 08:59 02/11/17 08:25 Ibuprofen (Motrin) 600 mg Q8H PRN ORAL Moderate Pain (Pain Scale 4-6) 02/09/17 07:45 03/11/17 07:44 Insulin Aspart (NovoLOG) BEFORE MEALS AND HS SUBQ 02/07/17 06:30 03/09/17 06:29 02/11/17 06:12 Lisinopril (Prinivil) 20 mg DAILY ORAL 02/10/17 09:00 03/12/17 08:59 02/11/17 08:20 Memantine (Namenda) 5 mg BID ORAL 02/07/17 18:00 03/09/17 17:59 02/11/17 08:20 Metformin HCl (Glucophage) 500 mg TWICE A DAY ORAL 02/07/17 09:00 03/09/17 08:59 02/11/17 08:20 Montelukast Sodium (Singulair) 10 mg DAILY ORAL 02/07/17 09:00 03/09/17 08:59 02/11/17 08:20 Pantoprazole (Protonix) 40 mg DAILY ORAL 02/07/17 09:00 03/09/17 08:59 02/11/17 08:20 Potassium Chloride (KCl 10% 20 mEq oral solution) 10 meq DAILY ORAL 02/07/17 09:00 03/09/17 08:59 02/11/17 08:20 Spironolactone (Aldactone) 25 mg DAILY ORAL 02/07/17 09:00 03/09/17 08:59 02/11/17 08:21 FAHAD SMITH M.D. Feb 11, 2017 09:01
--- NOTE | 2017-02-11 10:16 | Consultation ---
Consult Note Consult Note DATE: 02/11/17 CONSULTING PHYSICIAN: Addison Hetaon DPM COVERING FOR: Jimmie Taylor DPM REASON FOR CONSULT: Diabetic foot care and right foot and ankle pain HISTORY OF PRESENT ILLNESS: Patient is a pleasant 76 year old female with history of left ankle fracture 2 months ago. Patient states that the left ankle fracture has resolved but she has been experiencing right foot and ankle pain. She states that she does not recall trauma of her right ankle. She has difficulty with active and passive range of motion of the right foot. She also mentions that her toenails are elongated and she is unable to trim them herself. Patient states she has a history of gout as well. Patient was admitted secondary to UTI Allergies: Coded Allergies: ERYTHROMYCIN BASE (Verified Allergy, Intermediate, 08/28/16) CODEINE (Verified Allergy, Unknown, 08/28/16) MEPERIDINE (Verified Allergy, Unknown, 08/28/16) PENICILLINS (Verified Allergy, Unknown, 08/28/16) Past medical history: T2DM, HTN, hyperlipidemia, COPD, and sick sinus syndrome Medications: Reviewed. Please refer to chart for details Social history: Patient denies tobacco, alcohol, or illicit drug use Family history: No pertinent findings Objective Objective Exam Last 24 Hour Vital Signs Date Time Temp Pulse Resp B/P (MAP) Pulse Ox O2 Delivery O2 Flow Rate FiO2 02/11/17 08:29 75 114/65 02/11/17 08:20 114/65 02/11/17 07:45 98.1 75 19 114/65 98 Nasal Cannula 2.0 02/11/17 04:00 98.1 74 20 100/70 98 Nasal Cannula 2.0 02/11/17 00:00 97.8 74 18 111/67 95 Nasal Cannula 2.0 02/10/17 20:36 70 113/59 02/10/17 20:00 97.9 75 18 113/69 96 Nasal Cannula 2.0 02/10/17 16:00 97.5 75 18 115/71 95 Nasal Cannula 2.0 02/10/17 12:00 97.1 70 21 115/67 98 Nasal Cannula 2.0 02/10/17 12:00 97.1 70 21 115/67 98 Nasal Cannula 2.0 Laboratory Tests Test 02/11/17 04:00 White Blood Count 5.6 K/UL (4.8-10.8) Red Blood Count 4.15 M/UL (4.20-5.40) L Hemoglobin 11.5 G/DL (12.0-16.0) L Hematocrit 34.9 % (37.0-47.0) L Mean Corpuscular Volume 84 FL (80-99) Mean Corpuscular Hemoglobin 27.8 PG (27.0-31.0) Mean Corpuscular Hemoglobin Concent 33.0 G/DL (32.0-36.0) Red Cell Distribution Width 13.5 % (11.6-14.8) Platelet Count 193 K/UL (150-450) Mean Platelet Volume 8.5 FL (6.5-10.1) Neutrophils (%) (Auto) 49.1 % (45.0-75.0) Lymphocytes (%) (Auto) 38.4 % (20.0-45.0) Monocytes (%) (Auto) 5.2 % (1.0-10.0) Eosinophils (%) (Auto) 6.4 % (0.0-3.0) H Basophils (%) (Auto) 0.9 % (0.0-2.0) Sodium Level 141 MMOL/L (136-145) Potassium Level 3.9 MMOL/L (3.5-5.1) Chloride Level 102 MMOL/L (98-107) Carbon Dioxide Level 31 MMOL/L (21-32) Anion Gap 9 mmol/L (5-15) Blood Urea Nitrogen 17 mg/dL (7-18) Creatinine 0.7 MG/DL (0.55-1.30) Estimat Glomerular Filtration Rate mL/min (>60) Glucose Level 119 MG/DL (74-106) H Calcium Level 9.1 MG/DL (8.5-10.1) Microbiology Date/Time Source Procedure Growth Status 02/06/17 18:43 Urine,Clean Catch Urine Culture - Final Proteus Mirabilis Complete PHYSICAL EXAM: DERM: Thick, discolored, and elongated toenails 1-5 bilaterally NEURO: Decreased sensation to light touch noted bilaterally VASC: Pedal pulses palpable. Right foot with edema MSK: Pain with palpation of the right foot and with motion of the right ankle. Patient has pain with active and passive ROM of the right ankle . Assessment/Plan ASSESSMENT: - T2DM - Peripheral neuropathy - Right foot edema - Onychomycosis - Right ankle and foot pain - History of gout PLAN: - Ordering right foot and ankle xrays - Debrided toenails x 10 without complications - Continue icing the right foot and ankle - Start using papa wrap on right foot and ankle - Consider uric acid levels Addison Heaton DPM Feb 11, 2017 10:15
--- NOTE | 2017-02-11 10:57 | Diagnostic Imaging Report ---
Indication: PAIN Technique: 3 views of the right ankle Comparison: None Findings: There is profound osteoporotic change. This limits evaluation. Positioning is also somewhat limited. No gross acute fractures. No dislocations. 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 Impression: Very limited exam. No evidence of acute bony trauma Other findings as noted.
[2017-02-11 11:01] VITALS: BP 128/74
--- NOTE | 2017-02-11 11:01 | Diagnostic Imaging Report ---
Indication: PAIN Technique: 3 views right foot Comparison: None Findings: Unusual calcifications surrounding first metatarsal head medially and dorsally. These are combination of complex and circumscribed. There are questionably slight erosive changes of the medial aspect of the first proximal phalangeal base. No other definite erosions are demonstrated. There is slight deformity of the second metatarsal head and neck, may indicate old fracture. No definite acute fractures. No dislocations. Joint spaces are preserved. The bones are profoundly osteoporotic. Impression: Unusual calcifications on the first metatarsal head, may reflect unusual chronic calcified ectatic to this. Only minimal associated erosions, however. Correlation with clinical findings is recommended. No acute bony trauma Profound osteoporotic change, limiting evaluation
--- NOTE | 2017-02-11 11:50 | Consultation ---
History of Present Illness General Date patient seen: Feb 11, 2017 Time patient seen: 11:47 Chief Complaint: General Complaint Referring physician: Wale Reason for Consultation: complex UTI, bilateral renal calculi Present Illness Allergies: Coded Allergies: ERYTHROMYCIN BASE (Verified Allergy, Intermediate, 08/28/16) CODEINE (Verified Allergy, Unknown, 08/28/16) MEPERIDINE (Verified Allergy, Unknown, 08/28/16) PENICILLINS (Verified Allergy, Unknown, 08/28/16) Medication History Scheduled Atorvastatin Calcium* (Lipitor*), 10 MG ORAL BEDTIME, (Reported) Cephalexin* (Keflex*), 500 MG ORAL EVERY 6 HOURS, (Reported) Docusate Sodium* (Colace*), 100 MG ORAL EVERY 12 HOURS Ertapenem Sodium* (INVanz*), 1 GM IVPB Q24H Furosemide* (Lasix*), 40 MG ORAL DAILY Gabapentin* (Gabapentin*), 100 MG ORAL TID Gabapentin* (Gabapentin*), 300 MG ORAL BID, (Reported) Hydralazine HCl (Hydralazine HCl), 25 MG ORAL EVERY 6 HOURS, (Reported) Insulin Aspart (Novolog Flexpen), 0 UNITS SUBQ BEFORE MEALS AND HS Memantine Hcl* (Namenda*), 5 MG ORAL BID, (Reported) Metformin Hcl* (Metformin Hcl*), 500 MG ORAL TWICE A DAY, (Reported) Montelukast Sodium* (Montelukast Sodium*), 10 MG ORAL DAILY, (Reported) Pantoprazole* (Protonix*), 40 MG ORAL DAILY Potassium Chloride (Potassium Chloride), 10 MEQ ORAL DAILY Rivaroxaban (Xarelto*), 20 MG ORAL DAILY Spironolactone (Aldactone), 25 MG ORAL DAILY Verapamil Hcl* (Calan Sr*), 250 MG ORAL DAILY, (Reported) Scheduled PRN Acetaminophen* (Acetaminophen 325MG Tablet*), 650 MG ORAL Q4H PRN for Mild Pain / TEMP>101 Ibuprofen* (Motrin*), 200 MG ORAL Q4HR PRN for For Pain, (Reported) Miscellaneous Medications Ipratropium/Albuterol Sulfate (DuoNeb 0.5-3(2.5)mg/3ml), 3 ML HHN, (Reported) Unable to Obtain Medications (Unable To Obtain Meds), (Reported) Patient History History Provided By: Medical Record Healthcare decision maker Resuscitation status Full Code Advanced Directive on File Past Medical/Surgical History Past Medical/Surgical History: (1) Decubitus ulcer (2) DVT (deep venous thrombosis) (3) Altered mental status (4) Lactic acid acidosis (5) Nausea & vomiting (6) Elevated liver function tests Review of Systems All Other Systems: negative except mentioned in HPI Physical Exam Last 24 Hour Vital Signs Date Time Temp Pulse Resp B/P (MAP) Pulse Ox O2 Delivery O2 Flow Rate FiO2 02/11/17 11:01 97.9 80 20 128/74 99 Nasal Cannula 2.0 02/11/17 08:29 75 114/65 02/11/17 08:20 114/65 02/11/17 07:45 98.1 75 19 114/65 98 Nasal Cannula 2.0 02/11/17 04:00 98.1 74 20 100/70 98 Nasal Cannula 2.0 02/11/17 00:00 97.8 74 18 111/67 95 Nasal Cannula 2.0 02/10/17 20:36 70 113/59 02/10/17 20:00 97.9 75 18 113/69 96 Nasal Cannula 2.0 02/10/17 16:00 97.5 75 18 115/71 95 Nasal Cannula 2.0 02/10/17 12:00 97.1 70 21 115/67 98 Nasal Cannula 2.0 02/10/17 12:00 97.1 70 21 115/67 98 Nasal Cannula 2.0 Laboratory Tests Test 02/11/17 04:00 White Blood Count 5.6 K/UL (4.8-10.8) Red Blood Count 4.15 M/UL (4.20-5.40) L Hemoglobin 11.5 G/DL (12.0-16.0) L Hematocrit 34.9 % (37.0-47.0) L Mean Corpuscular Volume 84 FL (80-99) Mean Corpuscular Hemoglobin 27.8 PG (27.0-31.0) Mean Corpuscular Hemoglobin Concent 33.0 G/DL (32.0-36.0) Red Cell Distribution Width 13.5 % (11.6-14.8) Platelet Count 193 K/UL (150-450) Mean Platelet Volume 8.5 FL (6.5-10.1) Neutrophils (%) (Auto) 49.1 % (45.0-75.0) Lymphocytes (%) (Auto) 38.4 % (20.0-45.0) Monocytes (%) (Auto) 5.2 % (1.0-10.0) Eosinophils (%) (Auto) 6.4 % (0.0-3.0) H Basophils (%) (Auto) 0.9 % (0.0-2.0) Sodium Level 141 MMOL/L (136-145) Potassium Level 3.9 MMOL/L (3.5-5.1) Chloride Level 102 MMOL/L (98-107) Carbon Dioxide Level 31 MMOL/L (21-32) Anion Gap 9 mmol/L (5-15) Blood Urea Nitrogen 17 mg/dL (7-18) Creatinine 0.7 MG/DL (0.55-1.30) Estimat Glomerular Filtration Rate mL/min (>60) Glucose Level 119 MG/DL (74-106) H Calcium Level 9.1 MG/DL (8.5-10.1) Height (Feet): 5 Height (Inches): 6.00 Weight (Pounds): 165 Medications Current Medications Medications (Trade) Dose Ordered Sig/Joann Route PRN Reason Start Time Stop Time Status Last Admin Dose Admin Acetaminophen (Tylenol) 650 mg Q4H PRN ORAL Mild Pain / TEMP>101 02/06/17 22:00 03/08/17 21:59 Acetaminophen/ Hydrocodone Bitart ([place] 5/325) 1 tab Q6H PRN ORAL For Pain 02/06/17 21:30 02/13/17 21:29 Future hold Atorvastatin Calcium (Lipitor) 10 mg BEDTIME ORAL 02/07/17 21:00 03/09/17 20:59 02/10/17 20:36 Carvedilol (Coreg) 3.125 mg EVERY 12 HOURS ORAL 02/10/17 21:00 03/12/17 20:59 Ceftriaxone Sodium 2 gm/ Sodium Chloride 110 ml @ 220 mls/hr Q24H IVPB 02/09/17 20:00 02/16/17 19:59 02/10/17 20:36 Chlorhexidine Gluconate (Della-Hex 2%) 1 applic DAILY TOPIC 02/07/17 09:00 03/09/17 08:59 02/11/17 08:22 Dextrose (Dextrose 50%) STAT PRN IV Hypoglycemia 02/06/17 21:30 03/08/17 21:29 Docusate Sodium (Colace) 100 mg EVERY 12 HOURS ORAL 02/07/17 09:00 03/09/17 08:59 02/11/17 08:20 Furosemide (Lasix) 40 mg DAILY ORAL 02/07/17 09:00 03/09/17 08:59 02/11/17 08:21 Gabapentin (Neurontin) 100 mg TID ORAL 02/07/17 09:00 03/09/17 08:59 02/11/17 08:25 Ibuprofen (Motrin) 600 mg Q8H PRN ORAL Moderate Pain (Pain Scale 4-6) 02/09/17 07:45 03/11/17 07:44 Insulin Aspart (NovoLOG) BEFORE MEALS AND HS SUBQ 02/07/17 06:30 03/09/17 06:29 02/11/17 06:12 Lisinopril (Prinivil) 20 mg DAILY ORAL 02/10/17 09:00 03/12/17 08:59 02/11/17 08:20 Memantine (Namenda) 5 mg BID ORAL 02/07/17 18:00 03/09/17 17:59 02/11/17 08:20 Metformin HCl (Glucophage) 500 mg TWICE A DAY ORAL 02/07/17 09:00 03/09/17 08:59 02/11/17 08:20 Montelukast Sodium (Singulair) 10 mg DAILY ORAL 02/07/17 09:00 03/09/17 08:59 02/11/17 08:20 Pantoprazole (Protonix) 40 mg DAILY ORAL 02/07/17 09:00 03/09/17 08:59 02/11/17 08:20 Potassium Chloride (KCl 10% 20 mEq oral solution) 10 meq DAILY ORAL 02/07/17 09:00 03/09/17 08:59 02/11/17 08:20 Spironolactone (Aldactone) 25 mg DAILY ORAL 02/07/17 09:00 03/09/17 08:59 02/11/17 08:[address] reviewed: bilateral renal calculi, main concern is 10 mm renal pelvis stone on right Assessment/Plan Status: stable Assessment/Plan 76 yo male with recurrent difficult to treat UTI, likely from large bilateral stone burden. 10 mm renal pelvis stone likely needs to be addressed once urine is sterilized. Given anti-coagulation hx and multiple co-morbidities recommend treating UTI first, then outpatient follow up to consider lithotripsy for this large stone. Will need to discuss stopping anti-coagulation on an elective basis at that time. 1. abx per ID 2. f/u outpatient in 1-2 weeks, discuss lithotripsy. Keith Greco M.D. Feb 11, 2017 11:50
--- NOTE | 2017-02-11 12:13 | Internal Med Progress Note ---
Subjective Physician Name Chema Vázquez Attending Physician Zion Echevarria MD Current Medications Medications (Trade) Dose Ordered Sig/Joann Route PRN Reason Start Time Stop Time Status Last Admin Dose Admin Acetaminophen (Tylenol) 650 mg Q4H PRN ORAL Mild Pain / TEMP>101 02/06/17 22:00 03/08/17 21:59 Acetaminophen/ Hydrocodone Bitart ([place] 5/325) 1 tab Q6H PRN ORAL For Pain 02/06/17 21:30 02/13/17 21:29 Future hold Atorvastatin Calcium (Lipitor) 10 mg BEDTIME ORAL 02/07/17 21:00 03/09/17 20:59 02/10/17 20:36 Carvedilol (Coreg) 3.125 mg EVERY 12 HOURS ORAL 02/10/17 21:00 03/12/17 20:59 Ceftriaxone Sodium 2 gm/ Sodium Chloride 110 ml @ 220 mls/hr Q24H IVPB 02/09/17 20:00 02/16/17 19:59 02/10/17 20:36 Chlorhexidine Gluconate (Della-Hex 2%) 1 applic DAILY TOPIC 02/07/17 09:00 03/09/17 08:59 02/11/17 08:22 Dextrose (Dextrose 50%) STAT PRN IV Hypoglycemia 02/06/17 21:30 03/08/17 21:29 Docusate Sodium (Colace) 100 mg EVERY 12 HOURS ORAL 02/07/17 09:00 03/09/17 08:59 02/11/17 08:20 Furosemide (Lasix) 40 mg DAILY ORAL 02/07/17 09:00 03/09/17 08:59 02/11/17 08:21 Gabapentin (Neurontin) 100 mg TID ORAL 02/07/17 09:00 03/09/17 08:59 02/11/17 08:25 Ibuprofen (Motrin) 600 mg Q8H PRN ORAL Moderate Pain (Pain Scale 4-6) 02/09/17 07:45 03/11/17 07:44 Insulin Aspart (NovoLOG) BEFORE MEALS AND HS SUBQ 02/07/17 06:30 03/09/17 06:29 02/11/17 06:12 Lisinopril (Prinivil) 20 mg DAILY ORAL 02/10/17 09:00 03/12/17 08:59 02/11/17 08:20 Memantine (Namenda) 5 mg BID ORAL 02/07/17 18:00 03/09/17 17:59 02/11/17 08:20 Metformin HCl (Glucophage) 500 mg TWICE A DAY ORAL 02/07/17 09:00 03/09/17 08:59 02/11/17 08:20 Montelukast Sodium (Singulair) 10 mg DAILY ORAL 02/07/17 09:00 03/09/17 08:59 02/11/17 08:20 Pantoprazole (Protonix) 40 mg DAILY ORAL 02/07/17 09:00 03/09/17 08:59 02/11/17 08:20 Potassium Chloride (KCl 10% 20 mEq oral solution) 10 meq DAILY ORAL 02/07/17 09:00 03/09/17 08:59 02/11/17 08:20 Spironolactone (Aldactone) 25 mg DAILY ORAL 02/07/17 09:00 03/09/17 08:59 02/11/17 08:21 Allergies: Coded Allergies: ERYTHROMYCIN BASE (Verified Allergy, Intermediate, 08/28/16) CODEINE (Verified Allergy, Unknown, 08/28/16) MEPERIDINE (Verified Allergy, Unknown, 08/28/16) PENICILLINS (Verified Allergy, Unknown, 08/28/16) Subjective 76 YO F admitted with hematuria. Now UTI. Cover for Int Med-Dr Echevarria. Patient unable to discharge today-no ride or support at home Objective Last Vital Signs Date Time Temp Pulse Resp B/P (MAP) Pulse Ox O2 Delivery O2 Flow Rate FiO2 02/11/17 11:01 97.9 80 20 128/74 99 Nasal Cannula 2.0 Laboratory Tests Test 02/11/17 04:00 White Blood Count 5.6 K/UL (4.8-10.8) Red Blood Count 4.15 M/UL (4.20-5.40) L Hemoglobin 11.5 G/DL (12.0-16.0) L Hematocrit 34.9 % (37.0-47.0) L Mean Corpuscular Volume 84 FL (80-99) Mean Corpuscular Hemoglobin 27.8 PG (27.0-31.0) Mean Corpuscular Hemoglobin Concent 33.0 G/DL (32.0-36.0) Red Cell Distribution Width 13.5 % (11.6-14.8) Platelet Count 193 K/UL (150-450) Mean Platelet Volume 8.5 FL (6.5-10.1) Neutrophils (%) (Auto) 49.1 % (45.0-75.0) Lymphocytes (%) (Auto) 38.4 % (20.0-45.0) Monocytes (%) (Auto) 5.2 % (1.0-10.0) Eosinophils (%) (Auto) 6.4 % (0.0-3.0) H Basophils (%) (Auto) 0.9 % (0.0-2.0) Sodium Level 141 MMOL/L (136-145) Potassium Level 3.9 MMOL/L (3.5-5.1) Chloride Level 102 MMOL/L (98-107) Carbon Dioxide Level 31 MMOL/L (21-32) Anion Gap 9 mmol/L (5-15) Blood Urea Nitrogen 17 mg/dL (7-18) Creatinine 0.7 MG/DL (0.55-1.30) Estimat Glomerular Filtration Rate mL/min (>60) Glucose Level 119 MG/DL (74-106) H Calcium Level 9.1 MG/DL (8.5-10.1) Objective General Appearance: WD/WN, no apparent distress, alert EENT: PERRL/EOMI, normal ENT inspection, TMs normal Neck: non-tender, normal alignment, supple Cardiovascular: normal peripheral pulses, normal rate, regular rhythm, no gallop/murmur, no JVD Respiratory/Chest: chest wall non-tender, lungs clear, normal breath sounds, no respiratory distress, no accessory muscle use Abdomen: normal bowel sounds, non tender, soft, no organomegaly, no mass Extremities: normal range of motion, non-tender 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 Continue cefepime for now. See ID note. (3) Hematuria Assessment & Plan: CT abdomen/pelvis = bilat renal calculus (4) Pacemaker (5) Uncontrolled diabetes mellitus Assessment & Plan: Continue metformin and novolog sliding scale. (6) COPD (chronic obstructive pulmonary disease) (7) Sick sinus syndrome Assessment & Plan: see cardiology note. (8) Calculus of both kidneys (9) Onychomycosis Assessment/Plan D/C home in am on oral keflex CHEMA VÁZQUEZ Feb 11, 2017 12:13
--- NOTE | 2017-02-11 12:17 | Internal Med Progress Note ---
Subjective Date of Service: Feb 11, 2017 Physician Name Chema Colin Attending Physician Zion Echevarria MD Current Medications Medications (Trade) Dose Ordered Sig/Joann Route PRN Reason Start Time Stop Time Status Last Admin Dose Admin Acetaminophen (Tylenol) 650 mg Q4H PRN ORAL Mild Pain / TEMP>101 02/06/17 22:00 03/08/17 21:59 Acetaminophen/ Hydrocodone Bitart ([place] 5/325) 1 tab Q6H PRN ORAL For Pain 02/06/17 21:30 02/13/17 21:29 Future hold Atorvastatin Calcium (Lipitor) 10 mg BEDTIME ORAL 02/07/17 21:00 03/09/17 20:59 02/10/17 20:36 Carvedilol (Coreg) 3.125 mg EVERY 12 HOURS ORAL 02/10/17 21:00 03/12/17 20:59 Ceftriaxone Sodium 2 gm/ Sodium Chloride 110 ml @ 220 mls/hr Q24H IVPB 02/09/17 20:00 02/16/17 19:59 02/10/17 20:36 Chlorhexidine Gluconate (Della-Hex 2%) 1 applic DAILY TOPIC 02/07/17 09:00 03/09/17 08:59 02/11/17 08:22 Dextrose (Dextrose 50%) STAT PRN IV Hypoglycemia 02/06/17 21:30 03/08/17 21:29 Docusate Sodium (Colace) 100 mg EVERY 12 HOURS ORAL 02/07/17 09:00 03/09/17 08:59 02/11/17 08:20 Furosemide (Lasix) 40 mg DAILY ORAL 02/07/17 09:00 03/09/17 08:59 02/11/17 08:21 Gabapentin (Neurontin) 100 mg TID ORAL 02/07/17 09:00 03/09/17 08:59 02/11/17 08:25 Ibuprofen (Motrin) 600 mg Q8H PRN ORAL Moderate Pain (Pain Scale 4-6) 02/09/17 07:45 03/11/17 07:44 Insulin Aspart (NovoLOG) BEFORE MEALS AND HS SUBQ 02/07/17 06:30 03/09/17 06:29 02/11/17 06:12 Lisinopril (Prinivil) 20 mg DAILY ORAL 02/10/17 09:00 03/12/17 08:59 02/11/17 08:20 Memantine (Namenda) 5 mg BID ORAL 02/07/17 18:00 03/09/17 17:59 02/11/17 08:20 Metformin HCl (Glucophage) 500 mg TWICE A DAY ORAL 02/07/17 09:00 03/09/17 08:59 02/11/17 08:20 Montelukast Sodium (Singulair) 10 mg DAILY ORAL 02/07/17 09:00 03/09/17 08:59 02/11/17 08:20 Pantoprazole (Protonix) 40 mg DAILY ORAL 02/07/17 09:00 03/09/17 08:59 02/11/17 08:20 Potassium Chloride (KCl 10% 20 mEq oral solution) 10 meq DAILY ORAL 02/07/17 09:00 03/09/17 08:59 02/11/17 08:20 Spironolactone (Aldactone) 25 mg DAILY ORAL 02/07/17 09:00 03/09/17 08:59 02/11/17 08:21 Allergies: Coded Allergies: ERYTHROMYCIN BASE (Verified Allergy, Intermediate, 08/28/16) CODEINE (Verified Allergy, Unknown, 08/28/16) MEPERIDINE (Verified Allergy, Unknown, 08/28/16) PENICILLINS (Verified Allergy, Unknown, 08/28/16) ROS Limited/Unobtainable: No Constitutional: Reports: no symptoms HEENT: Reports: no symptoms Cardiovascular: Reports: no symptoms Respiratory: Reports: no symptoms Gastrointestinal/Abdominal: Reports: no symptoms Genitourinary: Reports: no symptoms Neurologic/Psychiatric: Reports: no symptoms Subjective 76 YO F admitted with hematuria. Now UTI. Cover for Int Med-Dr Echevarria. Await discharge today Objective Last Vital Signs Date Time Temp Pulse Resp B/P (MAP) Pulse Ox O2 Delivery O2 Flow Rate FiO2 02/11/17 11:01 97.9 80 20 128/74 99 Nasal Cannula 2.0 Laboratory Tests Test 02/11/17 04:00 White Blood Count 5.6 K/UL (4.8-10.8) Red Blood Count 4.15 M/UL (4.20-5.40) L Hemoglobin 11.5 G/DL (12.0-16.0) L Hematocrit 34.9 % (37.0-47.0) L Mean Corpuscular Volume 84 FL (80-99) Mean Corpuscular Hemoglobin 27.8 PG (27.0-31.0) Mean Corpuscular Hemoglobin Concent 33.0 G/DL (32.0-36.0) Red Cell Distribution Width 13.5 % (11.6-14.8) Platelet Count 193 K/UL (150-450) Mean Platelet Volume 8.5 FL (6.5-10.1) Neutrophils (%) (Auto) 49.1 % (45.0-75.0) Lymphocytes (%) (Auto) 38.4 % (20.0-45.0) Monocytes (%) (Auto) 5.2 % (1.0-10.0) Eosinophils (%) (Auto) 6.4 % (0.0-3.0) H Basophils (%) (Auto) 0.9 % (0.0-2.0) Sodium Level 141 MMOL/L (136-145) Potassium Level 3.9 MMOL/L (3.5-5.1) Chloride Level 102 MMOL/L (98-107) Carbon Dioxide Level 31 MMOL/L (21-32) Anion Gap 9 mmol/L (5-15) Blood Urea Nitrogen 17 mg/dL (7-18) Creatinine 0.7 MG/DL (0.55-1.30) Estimat Glomerular Filtration Rate mL/min (>60) Glucose Level 119 MG/DL (74-106) H Calcium Level 9.1 MG/DL (8.5-10.1) Objective General Appearance: WD/WN, no apparent distress, alert EENT: PERRL/EOMI, normal ENT inspection, TMs normal Neck: non-tender, normal alignment, supple Cardiovascular: normal peripheral pulses, normal rate, regular rhythm, no gallop/murmur, no JVD Respiratory/Chest: chest wall non-tender, lungs clear, normal breath sounds, no respiratory distress, no accessory muscle use Abdomen: normal bowel sounds, non tender, soft, no organomegaly, no mass Extremities: normal range of motion, non-tender 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 Continue cefepime for now. See ID note. (3) Hematuria Assessment & Plan: CT abdomen/pelvis = bilat renal calculus (4) Pacemaker (5) Uncontrolled diabetes mellitus Assessment & Plan: Continue metformin and novolog sliding scale. (6) COPD (chronic obstructive pulmonary disease) (7) Sick sinus syndrome Assessment & Plan: see cardiology note. (8) Calculus of both kidneys Assessment & Plan: Left 10X7 mm. See urology note-will require lithotripsy as outpatient. (9) Onychomycosis Assessment & Plan: See podiatry note. Status: stable Assessment/Plan D/C home in am on oral CHEMA Rowe Feb 11, 2017 12:17
[2017-02-11] MEDS ORDERED: CEPHALEXIN500 MG ORAL (13:00)
--- NOTE | 2017-02-11 13:53 | Cardiac Electrophysiology PN ---
Assessment/Plan Assessment/Plan 1. Paroxysmal atrial fibrillation. Remained sinus rhythm. On Coreg. Resume Xarelto if OK with PCP or id 2. Status post [employer] pacemaker implantation. Nl FX 3. Hypertension. Continue Lisinopril 20 daily, Lasix 40 mg daily and Aldactone 25 mg daily. 4. History of congestive heart failure. Echocardiogram EF 45% On Lisinopril , Aldactone and Lasix. 5. Hematuria. Proteus mirabilis UTI. DC home on Keflex po DW RN Subjective Subjective Comfortable in NAD. No chest pain or SOB.Scheduled for discharge today. Objective Last 24 Hour Vital Signs Date Time Temp Pulse Resp B/P (MAP) Pulse Ox O2 Delivery O2 Flow Rate FiO2 02/11/17 11:01 97.9 80 20 128/74 99 Nasal Cannula 2.0 02/11/17 08:29 75 114/65 02/11/17 08:20 114/65 02/11/17 07:45 98.1 75 19 114/65 98 Nasal Cannula 2.0 02/11/17 04:00 98.1 74 20 100/70 98 Nasal Cannula 2.0 02/11/17 00:00 97.8 74 18 111/67 95 Nasal Cannula 2.0 02/10/17 20:36 70 113/59 02/10/17 20:00 97.9 75 18 113/69 96 Nasal Cannula 2.0 02/10/17 16:00 97.5 75 18 115/71 95 Nasal Cannula 2.0 Laboratory Tests Test 02/11/17 04:00 White Blood Count 5.6 K/UL (4.8-10.8) Red Blood Count 4.15 M/UL (4.20-5.40) L Hemoglobin 11.5 G/DL (12.0-16.0) L Hematocrit 34.9 % (37.0-47.0) L Mean Corpuscular Volume 84 FL (80-99) Mean Corpuscular Hemoglobin 27.8 PG (27.0-31.0) Mean Corpuscular Hemoglobin Concent 33.0 G/DL (32.0-36.0) Red Cell Distribution Width 13.5 % (11.6-14.8) Platelet Count 193 K/UL (150-450) Mean Platelet Volume 8.5 FL (6.5-10.1) Neutrophils (%) (Auto) 49.1 % (45.0-75.0) Lymphocytes (%) (Auto) 38.4 % (20.0-45.0) Monocytes (%) (Auto) 5.2 % (1.0-10.0) Eosinophils (%) (Auto) 6.4 % (0.0-3.0) H Basophils (%) (Auto) 0.9 % (0.0-2.0) Sodium Level 141 MMOL/L (136-145) Potassium Level 3.9 MMOL/L (3.5-5.1) Chloride Level 102 MMOL/L (98-107) Carbon Dioxide Level 31 MMOL/L (21-32) Anion Gap 9 mmol/L (5-15) Blood Urea Nitrogen 17 mg/dL (7-18) Creatinine 0.7 MG/DL (0.55-1.30) Estimat Glomerular Filtration Rate mL/min (>60) Glucose Level 119 MG/DL (74-106) H Calcium Level 9.1 MG/DL (8.5-10.1) Objective HEAD AND NECK: No JVD. LUNGS: Clear. CARDIOVASCULAR: Regular S1 and S2 with no gallop or murmur. ABDOMEN: Soft and nontender. EXTREMITIES: There is no pitting edema. The pacemaker in the left subclavian is intact. JAMAAL LAWS Feb 11, 2017 13:52
--- NOTE | 2017-02-11 16:49 | Pulmonology Progress Note ---
Assessment/Plan Problems: (1) Hematuria (2) Sepsis (3) UTI (urinary tract infection) (4) COPD (chronic obstructive pulmonary disease) (5) Pacemaker (6) Hepatitis C Assessment/Plan improving wound care continue abx check cultures pt can be discharged with oral meds check labs, meds reviewed. Subjective ROS Limited/Unobtainable: No Constitutional: Reports: no symptoms HEENT: Repors: no symptoms Respiratory: Reports: no symptoms Allergies: Coded Allergies: ERYTHROMYCIN BASE (Verified Allergy, Intermediate, 08/28/16) CODEINE (Verified Allergy, Unknown, 08/28/16) MEPERIDINE (Verified Allergy, Unknown, 08/28/16) PENICILLINS (Verified Allergy, Unknown, 08/28/16) Objective Last 24 Hour Vital Signs Date Time Temp Pulse Resp B/P (MAP) Pulse Ox O2 Delivery O2 Flow Rate FiO2 02/11/17 11:01 97.9 80 20 128/74 99 Nasal Cannula 2.0 02/11/17 08:29 75 114/65 02/11/17 08:20 114/65 02/11/17 07:45 98.1 75 19 114/65 98 Nasal Cannula 2.0 02/11/17 04:00 98.1 74 20 100/70 98 Nasal Cannula 2.0 02/11/17 00:00 97.8 74 18 111/67 95 Nasal Cannula 2.0 02/10/17 20:36 70 113/59 02/10/17 20:00 97.9 75 18 113/69 96 Nasal Cannula 2.0 Intake and Output 02/11/17 02/12/17 19:00 07:00 Intake Total 700 ml Balance 700 ml Intake Oral 700 ml # Voids 2 General Appearance: WD/WN HEENT: normocephalic, anicteric Respiratory/Chest: chest wall non-tender, lungs clear, normal breath sounds Breasts: no masses Cardiovascular: normal peripheral pulses Abdomen: normal bowel sounds, soft, non tender Genitourinary: normal external genitalia Extremities: no clubbing Skin: no rash Laboratory Tests 02/11/17 04:00: White Blood Count 5.6, Red Blood Count 4.15L, Hemoglobin 11.5L, Hematocrit 34.9L , Mean Corpuscular Volume 84, Mean Corpuscular Hemoglobin 27.8, Mean Corpuscular Hemoglobin Concent 33.0, Red Cell Distribution Width 13.5, Platelet Count 193, Mean Platelet Volume 8.5, Neutrophils (%) (Auto) 49.1, Lymphocytes (% ) (Auto) 38.4, Monocytes (%) (Auto) 5.2, Eosinophils (%) (Auto) 6.4H, Basophils (%) (Auto) 0.9, Sodium Level 141, Potassium Level 3.9, Chloride Level 102, Carbon Dioxide Level 31, Anion Gap 9, Blood Urea Nitrogen 17, Creatinine 0.7, Estimat Glomerular Filtration Rate , Glucose Level 119H, Calcium Level 9.1 JONH RODRIGUEZ Feb 11, 2017 16:49
--- NOTE | 2017-02-12 18:03 | Cardiology Report ---
APPROVED REPORT EKG Measurement Heart [id number] Sinus rhythm V-paced rhythm Electronic pacemaker.
--- NOTE | 2017-02-13 14:23 | Discharge Summary ---
Discharge Summary Hospital Course Date of Admission Feb 06, 2017 at 20:37 Date of Discharge Feb 11, 2017 at 14:30 Admitting Diagnosis hematuria/UTI Antibiotic resistant HPI Amol Serrano is a 76 year old female who was admitted on Feb 06, 2017 at 20: 37 for Hematuria/Urinary Tract Infection Antibiotic Hospital Course [id number] Discharge Discharge Disposition Patient was discharged to Home (01) Discharge Diagnoses: Delmi Graham NP Feb 13, 2017 14:23
--- NOTE | 2017-02-13 19:30 | Discharge Summary 2 SIG ---
DATE OF ADMISSION: 02/06/2017 DATE OF DISCHARGE: 02/11/2017 CONSULTANTS: 1. Juve Mayes M.D. 2. Chelsea Telles M.D. 3. Keith Greco M.D. 4. Addison Heaton DPM. 5. Kaushal Chaney M.D. BRIEF HOSPITAL COURSE: The patient is a 76-year-old female, who presented to ED complaining of blood in the urine. The patient had recent admission to [facility] for diagnosis of UTI with multidrug resistant E. coli. She presented to ED with complaints of hematuria. The patient was afebrile. Blood work showed no leukocytosis. Urinalysis showed WBC 20 to 30, urine RBC 2 to 4, leukocyte esterase 3+, positive nitrite, positive occult blood and many bacteria. She had history of resistant urinary tract infection and was started on IV antibiotic meropenem at ED. She was then admitted to Med/Surg for evaluation of UTI. She has a history of hypertension and hyperlipidemia as well as sick sinus syndrome status post [employer] pacemaker implantation, diabetes, and COPD. The patient was on Xarelto and blood thinner was discontinued in view of hematuria. She was continued on hydralazine, Lasix, and Aldactone. Echocardiogram done showed EF of 40% to 45%. She was started on ertapenem. Urine culture showed growth of Proteus mirabilis. CT of the abdomen showed bilateral renal calculi overall stone burden increased since prior study on June 2015. There was no evidence of obstructive uropathy. Urologist was consulted. The patient has difficult to treat UTI secondary to large bilateral stone burden. She was recommended to treat urine infection first and to consider lithotripsy as outpatient. She has a history of left ankle fracture two months ago. The fracture resolved but has been experiencing foot pain and ankle pain. She was given conservative management. She was seen by electrician and underwent debridement of toenails x10 and was recommended wound care and Luís wrap on the right foot and ankle. She came in with sacral stage 3 pressure ulcer and was given wound care and low air loss mattress. She was cleared for discharge to change antibiotic to Keflex to complete antibiotic course. FINAL DIAGNOSES: 1. Urinary tract infection with Proteus with an infected kidney stone. 2. Recent Extended Spectrum Beta-Lactamases urinary tract infection status post 10 day of ertapenem on 01/28/2017. 3. Hematuria. 4. Diabetes type 2. 5. Sacral stage III pressure ulcer, present on admission. 6. Dementia. 7. Hypertension. 8. Chronic obstructive pulmonary disease. 9. Hyperlipidemia. 10. Status post [employer] pacemaker implantation with normal function. 11. Paroxysmal atrial fibrillation. 12. Congestive heart failure. 13. Peripheral neuropathy. 14. Onychomycosis s/p debridement of toes x 10. 15. Right ankle and foot pain. DISPOSITION: The patient was discharged home. DISCHARGE MEDICATIONS: Refer to medication list. FOLLOWUP: The patient was advised to follow up with PMD in a week. Wilder Colin M.D. I have been assigned to dictate discharge summary on this account and I was not involved in the patient's management. Delmi Graham N.P. DR: CLEVE JOB#: [id number] CC: BLANCA
== END 2017-02-11 14:30 | disposition home or self-care (01) | DRG 689 ==
LOC: EDBD 17:28 → EMR 18:06 → 4E 20:37 → EDBEDREQ 20:55 → 4E 22:57
DX: N39.0 Urinary tract infection, site not specified (principal); L89.153 Pressure ulcer of sacral region, stage 3; I50.9 Heart failure, unspecified; G62.9 Polyneuropathy, unspecified; F03.90 Unspecified dementia, unspecified severity, without behavioral disturbance, psychotic disturbance, mood disturbance, and anxiety; E11.9 Type 2 diabetes mellitus without complications; I10 Essential (primary) hypertension; B96.4 Proteus (mirabilis) (morganii) as the cause of diseases classified elsewhere; N20.0 Calculus of kidney; I48.0 Paroxysmal atrial fibrillation; J44.9 Chronic obstructive pulmonary disease, unspecified; E78.5 Hyperlipidemia, unspecified; Z95.0 Presence of cardiac pacemaker; Z79.01 Long term (current) use of anticoagulants; B35.1 Tinea unguium; M25.571 Pain in right ankle and joints of right foot; Z16.24 Resistance to multiple antibiotics; B19.20 Unspecified viral hepatitis C without hepatic coma; R31.9 Hematuria, unspecified; Z88.6 Allergy status to analgesic agent; Z88.1 Allergy status to other antibiotic agents; Z88.0 Allergy status to penicillin; Z88.8 Allergy status to other drugs, medicaments and biological substances; Z86.14 Personal history of Methicillin resistant Staphylococcus aureus infection; Z86.718 Personal history of other venous thrombosis and embolism
CPT/HCPCS: 36415; 74178; 80048; 80053; 81003; 82248; 82962; 83735; 84100; 84439; 84443; 84484; 85025; 85610; 85651; 86140; 87086; 87181; 93005; 93306; 99285; J1815

== ENCOUNTER 2017-03-11 10:11 | Inpatient (IN) | payer MEDICARE, MEDICAID ==
[~2017-03-11] VITALS: Ht 162.6 cm; Wt 79.4 kg
[~2017-03-11 10:11] MED LIST changes: +CEPHALEXIN500 MG ORAL
[2017-03-11 10:15] VITALS: BP 127/90
[2017-03-11 11:05] LABS: BASOPHILS % (AUTO) 1.2 % (0.0-2.0); EOSINOPHILS % (AUTO) 3.4 % (0.0-3.0); LYMPHOCYTES % (AUTO) 34.9 % (20.0-45.0); MEAN CORPUSCULAR HEMOGLOBIN 26.1 PG (27.0-31.0); MEAN CORPUSCULAR HGB CONC 31.6 G/DL (32.0-36.0); MEAN CORPUSCULAR VOLUME 83 FL (80-99); MONOCYTES % (AUTO) 8.2 % (1.0-10.0); NEUTROPHILS % (AUTO) 52.2 % (45.0-75.0); PLATELET COUNT 178 K/UL (150-450); RED BLOOD COUNT 4.59 M/UL (4.20-5.40); RED CELL DISTRIBUTION WIDTH 13.8 % (11.6-14.8); WHITE BLOOD COUNT 5.7 K/UL (4.8-10.8)
[2017-03-11 11:32] LABS: ANION GAP 9 mmol/L (5-15); CALCIUM 9.3 MG/DL (8.5-10.1); CARBON DIOXIDE 26 MMOL/L (21-32); CHLORIDE 108 MMOL/L (98-107); CREATININE 0.7 MG/DL (0.55-1.30); POTASSIUM 3.6 MMOL/L (3.5-5.1); SODIUM 143 MMOL/L (136-145)
[2017-03-11 11:49] LABS: ALANINE AMINOTRANSFERASE 20 U/L (12-78); ALBUMIN/GLOBULIN RATIO 0.8 (1.0-2.7); ASPARTATE AMINO TRANSFERASE 20 U/L (15-37); CKMB 1.4 NG/ML (0.0-3.6); TOTAL PROTEIN 7.9 G/DL (6.4-8.2)
[2017-03-11 11:52] LABS: BILIRUBIN,DIRECT 0.3 MG/DL (0.0-0.3)
[2017-03-11] MEDS ORDERED: Nitroglycerin Subl 0.4mg tab SL PRN (12:00)
[2017-03-11] MEDS ORDERED: Miralax 17gm pkt ORAL PRN (12:00)
[2017-03-11] MEDS ORDERED: Albuterol/Ipratropium 3ml neb HHN PRN (12:00)
[2017-03-11] MEDS ORDERED: Mylanta II UD 30ml ORAL PRN (12:00)
[2017-03-11 12:24] VITALS: BP 124/70
[2017-03-11 12:52] LABS: APPEARANCE,URINE CLEAR; KETONES,URINE NEGATIVE (NEGATIVE); LEUKOCYTE ESTERASE ,URINE 2+ (NEGATIVE); NITRITE,URINE NEGATIVE (NEGATIVE); PH,URINE 5 (4.5-8.0); PROTEIN,URINE 2+ (NEGATIVE); UROBILINOGEN,URINE 4 MG/DL (0.0-1.0)
[2017-03-11 13:08] LABS: BACTERIA,URINE FEW /HPF; SQUAMOUS EPITHELIAL CELL,UR FEW /LPF (NONE/OCC)
[2017-03-11 13:14] VITALS: BP 127/75
--- NOTE | 2017-03-11 13:16 | Emergency Room Report ---
History of Present Illness General Chief Complaint: Upper Respiratory Illness Source: Patient, Medical Record Present Illness HPI 76-year-old female presents ED for evaluation. States that for the last 2 days she's been feeling weak and sick. Notes cough with productive phlegm. Denies any fevers chills. Denies chest pain. Denies shortness of breath. States she was admitted here recently for UTI and was discharged home with IV antibiotics. No other aggravating or relieving factors. Denies any other associated symptoms Allergies: Coded Allergies: ERYTHROMYCIN BASE (Verified Allergy, Intermediate, 08/28/16) CODEINE (Verified Allergy, Unknown, 08/28/16) MEPERIDINE (Verified Allergy, Unknown, 08/28/16) PENICILLINS (Verified Allergy, Unknown, 08/28/16) Patient History Past Medical History: DM, HTN, asthma, COPD Past Surgical History: pacemaker Pertinent Family History: none Social History: Denies: smoking, alcohol use, drug use Last Menstrual Period: n/a Now: No Immunizations: UTD Reviewed Nursing Documentation: PMH: Agreed, PSxH: Agreed Nursing Documentation-PMH Past Medical History: No History, Except For Hx Cardiac Problems: Yes Hx Hypertension: Yes Hx Pacemaker: Yes - left chest Hx Asthma: Yes Hx COPD: Yes Hx Diabetes: Yes Hx Cancer: No Hx Gastrointestinal Problems: Yes Hx Neurological Problems: Yes Hx Dementia: Yes Hx Weakness: Yes Review of Systems All Other Systems: negative except mentioned in HPI Physical Exam Vital Signs Date Time Temp Pulse Resp B/P (MAP) Pulse Ox O2 Delivery O2 Flow Rate FiO2 03/11/17 09:57 97.0 82 18 127/93 98 Room Air Sp02 EP Interpretation: reviewed, normal General Appearance: no apparent distress, alert, GCS 15, non-toxic Head: normocephalic, atraumatic Eyes: bilateral eye normal inspection, bilateral eye PERRL ENT: hearing grossly normal, normal pharynx, no angioedema, normal voice Neck: full range of motion, supple/symm/no masses Respiratory: chest non-tender, normal breath sounds, crackles, speaking full sentences Cardiovascular #1: regular rate, rhythm, no edema Cardiovascular #2: 2+ carotid (R), 2+ carotid (L), 2+ radial (R), 2+ radial (L) , 2+ dorsalis pedis (R), 2+ dorsalis pedis (L) Gastrointestinal: normal bowel sounds, non tender, soft, non-distended, no guarding, no rebound Rectal: deferred Genitourinary: normal inspection, no CVA tenderness Musculoskeletal: back normal, gait/station normal, normal range of motion, non- tender Neurologic: alert, oriented x3, responsive, motor strength/tone normal, sensory intact, speech normal Psychiatric: judgement/insight normal, memory normal, mood/affect normal, no suicidal/homicidal ideation Reflexes: 3+ bicep (R), 3+ bicep (L), 3+ tricep (R), 3+ tricep (L), 3+ knee (R) , 3+ knee (L) Skin: normal color, no rash, warm/dry, well hydrated Lymphatic: no adenopathy Medical Decision Making Diagnostic Impression: Primary Impression: Pneumonia Qualified Codes: J18.1 - Lobar pneumonia, unspecified organism ER Course Hospital Course 76-year-old F presenting to ED with cough, weakness Differential diagnoses include: Pneumonia, CHF exacerbation, pneumothorax, fluid overload Clinical course Patient placed on stretcher. On monitor and storage bin tender. After initial history and physical, I ordered labs, IV fluids, EKG, chest x-ray, blood cultures, UA. Labs - no leukocytosis, hemoglobin/hematocrit stable, electrolytes ok, lactate okay, troponins negative, BNP elevated CXR - R lower lobe infiltrate EKG - atrial paced, PVCs abx given. Case discussed with Dr. Echevarria and he agreed to the patient to his service for further care and support I feel this is a highly complex case requiring extensive working including EKG/ Rhythm strip, Xray/CT/US, Blood/urine lab work, repeat exams while in ED, and administration of strong opiates/narcotics for pain control, admission to hospital or close patient follow up. Diagnosis - pneumonia Patient admitted to floor in serious condition Labs Test 03/11/17 10:30 03/11/17 12:21 White Blood Count 5.7 K/UL (4.8-10.8) Red Blood Count 4.59 M/UL (4.20-5.40) Hemoglobin 12.0 G/DL (12.0-16.0) Hematocrit 37.9 % (37.0-47.0) Mean Corpuscular Volume 83 FL (80-99) Mean Corpuscular Hemoglobin 26.1 PG (27.0-31.0) Mean Corpuscular Hemoglobin Concent 31.6 G/DL (32.0-36.0) Red Cell Distribution Width 13.8 % (11.6-14.8) Platelet Count 178 K/UL (150-450) Mean Platelet Volume 8.0 FL (6.5-10.1) Neutrophils (%) (Auto) 52.2 % (45.0-75.0) Lymphocytes (%) (Auto) 34.9 % (20.0-45.0) Monocytes (%) (Auto) 8.2 % (1.0-10.0) Eosinophils (%) (Auto) 3.4 % (0.0-3.0) Basophils (%) (Auto) 1.2 % (0.0-2.0) Sodium Level 143 MMOL/L (136-145) Potassium Level 3.6 MMOL/L (3.5-5.1) Chloride Level 108 MMOL/L (98-107) Carbon Dioxide Level 26 MMOL/L (21-32) Anion Gap 9 mmol/L (5-15) Blood Urea Nitrogen 15 mg/dL (7-18) Creatinine 0.7 MG/DL (0.55-1.30) Estimat Glomerular Filtration Rate mL/min (>60) Glucose Level 116 MG/DL (74-106) Lactic Acid Level 1.00 mmol/L (0.66-2.22) Calcium Level 9.3 MG/DL (8.5-10.1) Total Bilirubin 1.1 MG/DL (0.2-1.0) Direct Bilirubin 0.3 MG/DL (0.0-0.3) Aspartate Amino Transf (AST/SGOT) 20 U/L (15-37) Alanine Aminotransferase (ALT/SGPT) 20 U/L (12-78) Alkaline Phosphatase 100 U/L (46-116) Total Creatine Kinase 59 U/L (26-308) Creatine Kinase MB 1.4 NG/ML (0.0-3.6) Creatine Kinase MB Relative Index 2.3 Troponin I 0.006 ng/mL (0.000-0.056) Pro-B-Type Natriuretic Peptide 3027 pg/mL (0-125) Total Protein 7.9 G/DL (6.4-8.2) Albumin 3.5 G/DL (3.4-5.0) Globulin 4.4 g/dL Albumin/Globulin Ratio 0.8 (1.0-2.7) Urine Color Yellow Urine Appearance Clear Urine pH 5 (4.5-8.0) Urine Specific [place] 1.020 (1.005-1.035) Urine Protein 2+ (NEGATIVE) Urine Glucose (UA) Negative (NEGATIVE) Urine Ketones Negative (NEGATIVE) Urine Occult Blood 4+ (NEGATIVE) Urine Nitrite Negative (NEGATIVE) Urine Bilirubin Negative (NEGATIVE) Urine Urobilinogen 4 MG/DL (0.0-1.0) Urine Leukocyte Esterase 2+ (NEGATIVE) Urine RBC 5-10 /HPF (0 - 2) Urine WBC 10-15 /HPF (0 - 2) Urine Squamous Epithelial Cells Few /LPF (NONE/OCC) Urine Bacteria Few /HPF (NONE) EKG Diagnostic Results Rate: normal Rhythm: other - atrial paced ST Segments: other - PVCS ASA given to the pt in ED: No Rhythm Strip Diag. Results EP Interpretation: yes Rhythm: other - atrial paced Chest X-Ray Diagnostic Results Chest X-Ray Diagnostic Results : Chest X-Ray Ordered: Yes # of Views/Limited/Complete: 1 View Indication: Other - cough EP Interpretation: Yes Interpretation: no pneumothorax, no acute cardiopulmonary disease, other - pacemaker. cardiomegaly. RLL infiltrate Impression: Other - pneumonia Last Vital Signs Date Time Temp Pulse Resp B/P (MAP) Pulse Ox O2 Delivery O2 Flow Rate FiO2 03/11/17 12:43 80 18 129/83 100 Room Air 03/11/17 10:15 98.0 Status: improved Disposition: ADMITTED INPATIENT Condition: Serious Referrals: NOT CHOSEN YURIDIA/,REFERRING (PCP) HAO PEÑALOZA M.D. Mar 11, 2017 13:16
[2017-03-11] MEDS: HydrALAZINE 25mg tab ORAL SCH ×2 (13:21→16:59)
--- NOTE | 2017-03-11 13:35 | History & Physical ---
History and Physical History & Physicial Dictated for Int Med-Dr Echevarria no. [id number]. CHEMA VÁZQUEZ Mar 11, 2017 13:35
[2017-03-11] MEDS: Aztreonam Inj 1 GM in NS 55 ML IVPB SCH ×2 (14:25→22:58)
[2017-03-11] MEDS ORDERED: Vancomycin 1.5 GM/D5W 250ML IVPB SCH (14:30)
--- NOTE | 2017-03-11 14:36 | Diagnostic Imaging Report ---
Indication: COUGH torus of breath Technique: One view of the chest Comparison: And 09/30/16 Findings: There is mild generalized prominence of the interstitial markings. This is increased from the prior study.. Also some opacity at the right lung base which could represent airspace disease. There is slight blunting of left costophrenic sulcus, could indicate a small effusion. The heart is mildly enlarged. Left chest bifocal pacemaker is again demonstrated Impression: Cardiomegaly Mild interstitial congestion and possible right basilar airspace disease
[2017-03-11 16:14] VITALS: BP 115/74
--- NOTE | 2017-03-11 16:55 | Consultation ---
History of Present Illness General Date patient seen: Mar 11, 2017 Chief Complaint: Upper Respiratory Illness Present Illness HPI 76-year-old female with hx of COPD, CHf, CAD, pacemaker presented to ED with CC of cough with productive phlegm and being sick and weak. Denies any fevers chills. Denies chest pain. Denies shortness of breath. S. No other aggravating or relieving factors. Denies any other associated symptoms. Allergies: Coded Allergies: ERYTHROMYCIN BASE (Verified Allergy, Intermediate, 08/28/16) CODEINE (Verified Allergy, Unknown, 03/12/17) 03/12: PER PT, TOLERATED NORCO IN THE PAST MEPERIDINE (Verified Allergy, Unknown, 08/28/16) PENICILLINS (Verified Allergy, Unknown, 03/12/17) Tolerated Cefepime, Ceftriaxone, Keflex -02/2017 Medication History Scheduled Atorvastatin Calcium* (Lipitor*), 10 MG ORAL BEDTIME, (Reported) Cephalexin* (Keflex*), 500 MG ORAL QID, (Reported) Docusate Sodium* (Colace*), 100 MG ORAL EVERY 12 HOURS Furosemide* (Lasix*), 40 MG ORAL DAILY Gabapentin* (Gabapentin*), 100 MG ORAL TID Gabapentin* (Gabapentin*), 300 MG ORAL BID, (Reported) Hydralazine HCl (Hydralazine HCl), 25 MG ORAL EVERY 6 HOURS, (Reported) Insulin Aspart (Novolog Flexpen), 0 UNITS SUBQ BEFORE MEALS AND HS Memantine Hcl* (Namenda*), 5 MG ORAL BID, (Reported) Metformin Hcl* (Metformin Hcl*), 500 MG ORAL TWICE A DAY, (Reported) Montelukast Sodium* (Montelukast Sodium*), 10 MG ORAL DAILY, (Reported) Pantoprazole* (Protonix*), 40 MG ORAL DAILY Potassium Chloride (Potassium Chloride), 10 MEQ ORAL DAILY Rivaroxaban (Xarelto*), 20 MG ORAL DAILY Spironolactone (Aldactone), 25 MG ORAL DAILY Verapamil Hcl* (Calan Sr*), 250 MG ORAL DAILY, (Reported) Scheduled PRN Acetaminophen* (Acetaminophen 325MG Tablet*), 650 MG ORAL Q4H PRN for Mild Pain / TEMP>101 Ibuprofen* (Motrin*), 200 MG ORAL Q4HR PRN for For Pain, (Reported) Miscellaneous Medications Ipratropium/Albuterol Sulfate (DuoNeb 0.5-3(2.5)mg/3ml), 3 ML HHN, (Reported) Unable to Obtain Medications (Unable To Obtain Meds), (Reported) Patient History Healthcare decision maker Resuscitation status Full Code Advanced Directive on File Past Medical/Surgical History Past Medical/Surgical History: (1) Gout (2) Hepatitis C (3) DVT (deep venous thrombosis) (4) COPD (chronic obstructive pulmonary disease) (5) HTN (hypertension) (6) Pacemaker Review of Systems Constitutional: Reports: fever, malaise Respiratory: Reports: orthopnea, shortness of breath, wheezing Physical Exam General Appearance: WD/WN, no apparent distress Lines, tubes and drains: peripheral HEENT: normocephalic, anicteric Neck: non-tender, normal alignment Respiratory/Chest: chest wall non-tender, rhonchi - left, rhonchi - right Breasts: no masses Cardiovascular/Chest: normal peripheral pulses Abdomen: normal bowel sounds, non tender Genitourinary/Rectal: normal genital exam Extremities: normal range of motion Last 24 Hour Vital Signs Date Time Temp Pulse Resp B/P (MAP) Pulse Ox O2 Delivery O2 Flow Rate FiO2 03/11/17 16:14 97.3 88 20 115/74 95 03/11/17 13:21 129/83 03/11/17 13:14 97.7 84 18 127/75 97 03/11/17 12:43 80 18 129/83 100 Room Air 03/11/17 12:24 89 19 124/70 99 Room Air 03/11/17 10:15 88 16 Room Air 03/11/17 10:15 98.0 88 18 127/90 100 Room Air 03/11/17 09:57 97.0 82 18 127/93 98 Room Air Intake and Output 03/11/17 03/12/17 19:00 07:00 Intake Total 55 ml Balance 55 ml Intake IV Total 55 ml Laboratory Tests Test 03/11/17 10:30 03/11/17 12:21 White Blood Count 5.7 K/UL (4.8-10.8) Red Blood Count 4.59 M/UL (4.20-5.40) Hemoglobin 12.0 G/DL (12.0-16.0) Hematocrit 37.9 % (37.0-47.0) Mean Corpuscular Volume 83 FL (80-99) Mean Corpuscular Hemoglobin 26.1 PG (27.0-31.0) L Mean Corpuscular Hemoglobin Concent 31.6 G/DL (32.0-36.0) L Red Cell Distribution Width 13.8 % (11.6-14.8) Platelet Count 178 K/UL (150-450) Mean Platelet Volume 8.0 FL (6.5-10.1) Neutrophils (%) (Auto) 52.2 % (45.0-75.0) Lymphocytes (%) (Auto) 34.9 % (20.0-45.0) Monocytes (%) (Auto) 8.2 % (1.0-10.0) Eosinophils (%) (Auto) 3.4 % (0.0-3.0) H Basophils (%) (Auto) 1.2 % (0.0-2.0) Sodium Level 143 MMOL/L (136-145) Potassium Level 3.6 MMOL/L (3.5-5.1) Chloride Level 108 MMOL/L (98-107) H Carbon Dioxide Level 26 MMOL/L (21-32) Anion Gap 9 mmol/L (5-15) Blood Urea Nitrogen 15 mg/dL (7-18) Creatinine 0.7 MG/DL (0.55-1.30) Estimat Glomerular Filtration Rate mL/min (>60) Glucose Level 116 MG/DL (74-106) H Lactic Acid Level 1.00 mmol/L (0.66-2.22) Calcium Level 9.3 MG/DL (8.5-10.1) Total Bilirubin 1.1 MG/DL (0.2-1.0) H Direct Bilirubin 0.3 MG/DL (0.0-0.3) Aspartate Amino Transf (AST/SGOT) 20 U/L (15-37) Alanine Aminotransferase (ALT/SGPT) 20 U/L (12-78) Alkaline Phosphatase 100 U/L (46-116) Total Creatine Kinase 59 U/L (26-308) Creatine Kinase MB 1.4 NG/ML (0.0-3.6) Creatine Kinase MB Relative Index 2.3 Troponin I 0.006 ng/mL (0.000-0.056) Pro-B-Type Natriuretic Peptide 3027 pg/mL (0-125) H Total Protein 7.9 G/DL (6.4-8.2) Albumin 3.5 G/DL (3.4-5.0) Globulin 4.4 g/dL Albumin/Globulin Ratio 0.8 (1.0-2.7) L Urine Color Yellow Urine Appearance Clear Urine pH 5 (4.5-8.0) Urine Specific [place] 1.020 (1.005-1.035) Urine Protein 2+ (NEGATIVE) H Urine Glucose (UA) Negative (NEGATIVE) Urine Ketones Negative (NEGATIVE) Urine Occult Blood 4+ (NEGATIVE) H Urine Nitrite Negative (NEGATIVE) Urine Bilirubin Negative (NEGATIVE) Urine Urobilinogen 4 MG/DL (0.0-1.0) H Urine Leukocyte Esterase 2+ (NEGATIVE) H Urine RBC 5-10 /HPF (0 - 2) H Urine WBC 10-15 /HPF (0 - 2) H Urine Squamous Epithelial Cells Few /LPF (NONE/OCC) Urine Bacteria Few /HPF (NONE) Urine Legionella Antigen Pending Microbiology Date/Time Source Procedure Growth Status 03/11/17 10:45 Nasal Nares Influenza Types A,B Antigen (NELLY) - Final Complete Height (Feet): 5 Height (Inches): 4.00 Weight (Pounds): 175 Medications Current Medications Medications (Trade) Dose Ordered Sig/Joann Route PRN Reason Start Time Stop Time Status Last Admin Dose Admin Acetaminophen (Tylenol) 650 mg Q4H PRN ORAL T>100.5 F 03/11/17 12:00 04/10/17 11:59 Al Hydroxide/Mg Hydroxide (Mylanta II) 30 ml Q6H PRN ORAL dyspepsia 03/11/17 12:00 04/10/17 11:59 Albuterol/ Ipratropium (Albuterol/ Ipratropium) 3 ml Q4H PRN HHN Shortness of Breath 03/11/17 12:00 03/16/17 11:59 Atorvastatin Calcium (Lipitor) 10 mg BEDTIME ORAL 03/11/17 21:00 04/10/17 20:59 Aztreonam 1 gm/ Sodium Chloride 55 ml @ 110 mls/hr EVERY 8 HOURS IVPB 03/11/17 14:00 03/18/17 13:59 03/11/17 14:25 Dextrose (Dextrose 50%) STAT PRN IV Hypoglycemia 03/11/17 12:00 04/10/17 11:59 Gabapentin (Neurontin) 100 mg Q8HR ORAL 03/11/17 14:00 04/10/17 13:59 03/11/17 14:24 Hydralazine HCl (Apresoline) 25 mg EVERY 6 HOURS ORAL 03/11/17 12:00 04/10/17 11:59 Insulin Aspart (NovoLOG) BEFORE MEALS AND HS SUBQ 03/11/17 16:30 04/10/17 16:29 Nitroglycerin (Ntg) 0.4 mg Q5M PRN SL Prn Chest Pain 03/11/17 12:00 04/10/17 11:59 Ondansetron HCl (Zofran) 4 mg Q6H PRN IVP Nausea & Vomiting 03/11/17 12:00 04/10/17 11:59 Polyethylene Glycol (Miralax) 17 gm DAILYPRN PRN ORAL Constipation 03/11/17 12:00 04/10/17 11:59 Rivaroxaban (Xarelto) 20 mg DAILY ORAL 03/12/17 09:00 04/11/17 08:59 Temazepam (Restoril) 15 mg HSPRN PRN ORAL Insomnia 03/11/17 21:00 03/18/17 20:59 Vancomycin HCl (Vanco rx to dose) 1 ea DAILY PRN MISC Per rx protocol 03/11/17 12:00 04/10/17 11:59 Vancomycin HCl/ Dextrose 250 ml @ 125 mls/hr Q24H IVPB 03/11/17 14:30 03/16/17 14:29 Assessment/Plan Problem List: (1) Purulent bronchitis ICD Codes: J41.1 - Mucopurulent chronic bronchitis SNOMED: 58580284 (2) COPD (chronic obstructive pulmonary disease) ICD Codes: J44.9 - Chronic obstructive pulmonary disease, unspecified SNOMED: 04179052 (3) HTN (hypertension) ICD Codes: I10 - Essential (primary) hypertension SNOMED: 02670127 (4) Pacemaker ICD Codes: Z95.0 - Presence of cardiac pacemaker SNOMED: 535764781 (5) Hepatitis C ICD Codes: B19.20 - Unspecified viral hepatitis C without hepatic coma SNOMED: 29974294 (6) Gout ICD Codes: M10.9 - Gout, unspecified SNOMED: 37545650 Assessment/Plan respiratory treatment IV abx check sputum titrate fio2 check cxr and bnp in am dvt prophylaxis JONH RODRIGUEZ Mar 11, 2017 16:55
[2017-03-11] MEDS: NovoLOG Insulin Flexpen SUBQ SCH ×2 (16:59→20:15)
--- NOTE | 2017-03-11 17:00 | History and Physical Report ---
DATE OF ADMISSION: 03/11/2017 CHIEF COMPLAINT: The patient is a 76-year-old female, who presents with chief complaint of "the flu." HISTORY OF PRESENT ILLNESS: History of present illness began two days prior to admission. The patient began to feel weak and sick. The patient had subjective fevers and chills. The patient was admitted to [facility] from 02/06/2017 through 02/11/2017, for complicated urinary tract infection. Please see history and physical and discharge summary dictated at that time. The patient states history of the present illness began approximately two days ago. The patient began to feel weak and "sick." The patient had subjective fevers and chills. The patient also complained of cough with phlegm productive of yellowish sputum. The patient presented to [facility]. The patient is admitted for upper respiratory tract infection to rule out influenza. REVIEW OF SYSTEMS: CONSTITUTIONAL: The patient denies weight loss or weight gain. The patient complains of subjective fevers and chills as above. HEENT: The patient denies ear or throat pain. The patient denies headache. CARDIOVASCULAR: The patient denies palpitations or chest pain. CHEST: The patient complains of cough productive of yellow phlegm as above. The patient denies wheezes. ABDOMEN: The patient denies nausea, vomiting, diarrhea, or constipation. GENITOURINARY: The patient denies dysuria or increased frequency of urination. NEUROMUSCULAR: The patient denies seizures or generalized weakness. PAST MEDICAL HISTORY: Significant for: 1. Sick sinus syndrome. 2. Hypercholesterolemia. 3. Hypertension. 4. Chronic obstructive pulmonary disease. 5. Dysphagia. 6. Diabetes type 2. 7. History of right ankle fracture. 8. History of left ankle fracture. PAST SURGICAL HISTORY: Significant for pacemaker implantation in the left chest wall. CURRENT MEDICATIONS: 1. Lipitor 10 mg one tablet p.o. nightly. 2. Lasix 40 mg one tablet p.o. daily. 3. Gabapentin 100 mg one tablet p.o. 3 times daily. 4. Hydralazine 25 mg one tablet p.o. q.6 hours p.r.n. 5. NovoLog sliding scale. 6. DuoNeb nebulized q.4 hours p.r.n. 7. Namenda 5 mg one tablet p.o. twice daily. 8. Metformin 500 mg one tablet p.o. twice daily. 9. Singulair 10 mg one tablet p.o. daily. 10. Protonix 40 mg one tablet p.o. daily. 11. Potassium chloride 10 mEq p.o. daily. 12. Xarelto 20 mg one tablet p.o. daily. 13. Spironolactone 25 mg one tablet p.o. daily. 14. Verapamil 240 mg p.o. daily. ALLERGIES: 1. Codeine. 2. Erythromycin. 3. Demerol. 4. Penicillin. SOCIAL HISTORY: The patient is . The patient denies tobacco or alcohol use. The patient lives with her adult daughter, Elisabet. PHYSICAL EXAMINATION: VITAL SIGNS: Temperature 97.0-98.0, respirations 16-18, pulse 82-88, and blood pressure 127/90. GENERAL: The patient is a well-developed, well-nourished female, in no apparent distress. HEENT: Eyes, pupils equal and responsive to light and accommodation. Extraocular movements are intact. NECK: Supple. No lymphadenopathy. CHEST: Lungs are clear to auscultation bilaterally without wheezes or rales. CARDIOVASCULAR: Regular rhythm and rate. S1, S2 normal without murmurs, rubs, or gallops. ABDOMEN: Soft, nontender, nondistended. Positive bowel sounds. No evidence of hepatosplenomegaly. Currently, no rebound or guarding noted. EXTREMITIES: Negative for clubbing, cyanosis, or edema. RECTAL: Refused. GENITAL: Refused. NEUROLOGIC: Cranial nerves II through XII are grossly intact without focal deficits. Motor strength is 5/5 bilaterally intact. Deep tendon reflexes are 2+, plantar. LABORATORY STUDIES: WBC 5.7, hemoglobin 12.0, hematocrit 37.9, and platelets 178,000. Sodium 143, potassium 3.6, chloride 108, CO2 26, BUN 15, creatinine 0.7, and glucose 116. Troponin normal at 0.006. BNP elevated at 3027. Urinalysis showed 2+ protein, 4+ occult blood with 10-15 WBCs and 5-10 RBCs, leukocyte esterase was 2+. Chest x-ray is pending. ASSESSMENT: This is a 76-year-old female with: 1. Upper respiratory tract infection. 2. Cough. 3. Sick sinus syndrome. 4. Hypercholesterolemia. 5. Hypertension. 6. Chronic obstructive pulmonary disease. 7. History of dysphagia. 8. Diabetes type 2. TREATMENT: 1. Cough/upper respiratory tract infection. An influenza A and B test is pending. The patient has been started empirically on aztreonam and levofloxacin. Pulmonary consultation has been obtained with Dr. Chelsea Telles. We will follow recommendation of pulmonary. 2. Hypertension. Continue hydralazine and verapamil as above. 3. Sick sinus syndrome. Cardiology consultation has been obtained with Dr. Juve Mayes. 4. Chronic obstructive pulmonary disease. As above, pulmonary consultation has been obtained with Dr. Chelsea Telles. 5. Diabetes type 2. NovoLog sliding scale has been instituted. Continue metformin as above. Wilder Colin M.D. DR: Werner JOB#: [id number] CC:
[2017-03-11 19:35] VITALS: BP 109/61
[2017-03-11 23:50] VITALS: BP 116/70
[2017-03-12 03:35] VITALS: BP 116/75
[2017-03-12] MEDS: HydrALAZINE 25mg tab ORAL SCH ×4 (05:59→18:03)
[2017-03-12] MEDS: Aztreonam Inj 1 GM in NS 55 ML IVPB SCH (06:00)
[2017-03-12] MEDS: NovoLOG Insulin Flexpen SUBQ SCH ×4 (06:05→20:54)
[2017-03-12 07:09] LABS: BASOPHILS % (AUTO) 1.2 % (0.0-2.0); EOSINOPHILS % (AUTO) 4.5 % (0.0-3.0); LYMPHOCYTES % (AUTO) 31.2 % (20.0-45.0); MEAN CORPUSCULAR HEMOGLOBIN 26.9 PG (27.0-31.0); MEAN CORPUSCULAR HGB CONC 32.1 G/DL (32.0-36.0); MEAN CORPUSCULAR VOLUME 84 FL (80-99); MEAN PLATELET VOLUME 8.4 FL (6.5-10.1); MONOCYTES % (AUTO) 10.2 % (1.0-10.0); NEUTROPHILS % (AUTO) 52.8 % (45.0-75.0); PLATELET COUNT 153 K/UL (150-450); RED CELL DISTRIBUTION WIDTH 13.9 % (11.6-14.8); WHITE BLOOD COUNT 5.7 K/UL (4.8-10.8)
[2017-03-12 08:15] VITALS: BP 97/65
[2017-03-12 08:38] LABS: ANION GAP 8 mmol/L (5-15); CARBON DIOXIDE 27 MMOL/L (21-32); CHLORIDE 107 MMOL/L (98-107); CREATININE 0.7 MG/DL (0.55-1.30); SODIUM 142 MMOL/L (136-145)
[2017-03-12] MEDS: Xarelto 10mg tab ORAL SCH ×2 (08:56→09:00)
[2017-03-12 08:58] LABS: ANION GAP 9 mmol/L (5-15); CARBON DIOXIDE 26 MMOL/L (21-32); CHLORIDE 107 MMOL/L (98-107); CREATININE 0.7 MG/DL (0.55-1.30); PHOSPHORUS 4.2 MG/DL (2.5-4.9); POTASSIUM 4.2 MMOL/L (3.5-5.1); SODIUM 142 MMOL/L (136-145)
--- NOTE | 2017-03-12 11:12 | Consultation ---
History of Present Illness General Date patient seen: Mar 12, 2017 Time patient seen: 11:11 Chief Complaint: Upper Respiratory Illness Present Illness HPI 76 y/o M with hx of SSS s/p PPM in the left anterior chest wall, HLD, COPD, Dysphagia, DM2, sacral stage III pressure ulcer HTN, Dementia, hx of MRSA and VRE colonization, hx of R and L ankle fx presents to ED on 03/11 with 2 days onset of subjective fevers/chills, feeling weak and sick, productive cough of yellowish sputum Of note patient recently admitted on 02/06 for hematuria and intermittenly L flank pain of 3 weeks. She was found to have infected kidney stone 2ry to Proteus. She received 10 days of abx (Meropenem>Cefepime>Ceftriaxone and discharged on Keflex). She has previously received 10 days of Ertapenem (end date 01/28/17) due to ESBL E.coli UTI. Allergies: Coded Allergies: ERYTHROMYCIN BASE (Verified Allergy, Intermediate, 08/28/16) CODEINE (Verified Allergy, Unknown, 08/28/16) MEPERIDINE (Verified Allergy, Unknown, 08/28/16) PENICILLINS (Verified Allergy, Unknown, 03/12/17) Tolerated Cefepime, Ceftriaxone, Keflex -02/2017 Medication History Scheduled Atorvastatin Calcium* (Lipitor*), 10 MG ORAL BEDTIME, (Reported) Cephalexin* (Keflex*), 500 MG ORAL QID, (Reported) Docusate Sodium* (Colace*), 100 MG ORAL EVERY 12 HOURS Furosemide* (Lasix*), 40 MG ORAL DAILY Gabapentin* (Gabapentin*), 100 MG ORAL TID Gabapentin* (Gabapentin*), 300 MG ORAL BID, (Reported) Hydralazine HCl (Hydralazine HCl), 25 MG ORAL EVERY 6 HOURS, (Reported) Insulin Aspart (Novolog Flexpen), 0 UNITS SUBQ BEFORE MEALS AND HS Memantine Hcl* (Namenda*), 5 MG ORAL BID, (Reported) Metformin Hcl* (Metformin Hcl*), 500 MG ORAL TWICE A DAY, (Reported) Montelukast Sodium* (Montelukast Sodium*), 10 MG ORAL DAILY, (Reported) Pantoprazole* (Protonix*), 40 MG ORAL DAILY Potassium Chloride (Potassium Chloride), 10 MEQ ORAL DAILY Rivaroxaban (Xarelto*), 20 MG ORAL DAILY Spironolactone (Aldactone), 25 MG ORAL DAILY Verapamil Hcl* (Calan Sr*), 250 MG ORAL DAILY, (Reported) Scheduled PRN Acetaminophen* (Acetaminophen 325MG Tablet*), 650 MG ORAL Q4H PRN for Mild Pain / TEMP>101 Ibuprofen* (Motrin*), 200 MG ORAL Q4HR PRN for For Pain, (Reported) Miscellaneous Medications Ipratropium/Albuterol Sulfate (DuoNeb 0.5-3(2.5)mg/3ml), 3 ML HHN, (Reported) Unable to Obtain Medications (Unable To Obtain Meds), (Reported) Patient History Healthcare decision maker Resuscitation status Full Code Advanced Directive on File Patient History Narrative Pmhx: Shx:The patient is . The patient denies tobacco or alcohol use. The patient lives with her adult daughter, Elisabet. Fhx: non contributory Review of Systems All Other Systems: negative except mentioned in HPI Physical Exam Physical Exam Narrative GENERAL: The patient is a well-developed, well-nourished female, in no apparent distress. HEENT: Eyes, pupils equal and responsive to light and accommodation. Extraocular movements are intact. NECK: Supple. No lymphadenopathy. CHEST: Lungs are clear to auscultation bilaterally without wheezes or rales. CARDIOVASCULAR: Regular rhythm and rate. S1, S2 normal without murmurs, rubs, or gallops. ABDOMEN: Soft, nontender, nondistended. Positive bowel sounds. No evidence of hepatosplenomegaly. Currently, no rebound or guarding noted. EXTREMITIES: Negative for clubbing, cyanosis, or edema. NEUROLOGIC: Cranial nerves II through XII are grossly intact without focal deficits. Motor strength is 5/5 bilaterally intact. Deep tendon reflexes are 2+, plantar. Last 24 Hour Vital Signs Date Time Temp Pulse Resp B/P (MAP) Pulse Ox O2 Delivery O2 Flow Rate FiO2 03/12/17 08:15 98.4 84 20 97/65 99 Nasal Cannula 2.0 84 03/12/17 05:59 116/75 03/12/17 03:35 97.6 85 20 116/75 97 Nasal Cannula 85 03/12/17 00:00 116/70 03/11/17 23:50 97.3 90 20 116/70 Room Air 03/11/17 19:35 97.6 91 20 109/61 97 Room Air 03/11/17 16:59 115/74 03/11/17 16:14 97.3 88 20 115/74 95 03/11/17 13:21 129/83 03/11/17 13:14 97.7 84 18 127/75 97 03/11/17 12:43 80 18 129/83 100 Room Air 03/11/17 12:24 89 19 124/70 99 Room Air Intake and Output 03/12/17 03/13/17 19:00 07:00 Intake Total 240 ml Balance 240 ml Intake Oral 240 ml Laboratory Tests Test 03/11/17 12:21 03/12/17 05:10 Urine Color Yellow Urine Appearance Clear Urine pH 5 (4.5-8.0) Urine Specific Melvin 1.020 (1.005-1.035) Urine Protein 2+ (NEGATIVE) H Urine Glucose (UA) Negative (NEGATIVE) Urine Ketones Negative (NEGATIVE) Urine Occult Blood 4+ (NEGATIVE) H Urine Nitrite Negative (NEGATIVE) Urine Bilirubin Negative (NEGATIVE) Urine Urobilinogen 4 MG/DL (0.0-1.0) H Urine Leukocyte Esterase 2+ (NEGATIVE) H Urine RBC 5-10 /HPF (0 - 2) H Urine WBC 10-15 /HPF (0 - 2) H Urine Squamous Epithelial Cells Few /LPF (NONE/OCC) Urine Bacteria Few /HPF (NONE) Urine Legionella Antigen Pending White Blood Count 5.7 K/UL (4.8-10.8) Red Blood Count 4.10 M/UL (4.20-5.40) L Hemoglobin 11.0 G/DL (12.0-16.0) L Hematocrit 34.3 % (37.0-47.0) L Mean Corpuscular Volume 84 FL (80-99) Mean Corpuscular Hemoglobin 26.9 PG (27.0-31.0) L Mean Corpuscular Hemoglobin Concent 32.1 G/DL (32.0-36.0) Red Cell Distribution Width 13.9 % (11.6-14.8) Platelet Count 153 K/UL (150-450) Mean Platelet Volume 8.4 FL (6.5-10.1) Neutrophils (%) (Auto) 52.8 % (45.0-75.0) Lymphocytes (%) (Auto) 31.2 % (20.0-45.0) Monocytes (%) (Auto) 10.2 % (1.0-10.0) H Eosinophils (%) (Auto) 4.5 % (0.0-3.0) H Basophils (%) (Auto) 1.2 % (0.0-2.0) Sodium Level 142 MMOL/L (136-145) Potassium Level 4.0 MMOL/L (3.5-5.1) Chloride Level 107 MMOL/L (98-107) Carbon Dioxide Level 27 MMOL/L (21-32) Anion Gap 8 mmol/L (5-15) Blood Urea Nitrogen 16 mg/dL (7-18) Creatinine 0.7 MG/DL (0.55-1.30) Estimat Glomerular Filtration Rate mL/min (>60) Glucose Level 118 MG/DL (74-106) H Calcium Level 9.0 MG/DL (8.5-10.1) Phosphorus Level 4.2 MG/DL (2.5-4.9) Albumin 3.2 G/DL (3.4-5.0) L Microbiology Date/Time Source Procedure Growth Status 03/11/17 12:21 Urine,Clean Catch Urine Culture - Preliminary NO GROWTH Resulted Height (Feet): 5 Height (Inches): 4.00 Weight (Pounds): 175 Medications Current Medications Medications (Trade) Dose Ordered Sig/Joann Route PRN Reason Start Time Stop Time Status Last Admin Dose Admin Acetaminophen (Tylenol) 650 mg Q4H PRN ORAL T>100.5 F 03/11/17 12:00 04/10/17 11:59 Al Hydroxide/Mg Hydroxide (Mylanta II) 30 ml Q6H PRN ORAL dyspepsia 03/11/17 12:00 04/10/17 11:59 Albuterol/ Ipratropium (Albuterol/ Ipratropium) 3 ml Q4H PRN HHN Shortness of Breath 03/11/17 12:00 03/16/17 11:59 Atorvastatin Calcium (Lipitor) 10 mg BEDTIME ORAL 03/11/17 21:00 04/10/17 20:59 03/11/17 20:13 Aztreonam 1 gm/ Sodium Chloride 55 ml @ 110 mls/hr EVERY 8 HOURS IVPB 03/11/17 14:00 03/18/17 13:59 03/12/17 06:00 Dextrose (Dextrose 50%) STAT PRN IV Hypoglycemia 03/11/17 12:00 04/10/17 11:59 Gabapentin (Neurontin) 100 mg Q8HR ORAL 03/11/17 14:00 04/10/17 13:59 03/12/17 05:59 Hydralazine HCl (Apresoline) 25 mg EVERY 6 HOURS ORAL 03/11/17 12:00 04/10/17 11:59 03/12/17 05:59 Insulin Aspart (NovoLOG) BEFORE MEALS AND HS SUBQ 03/11/17 16:30 04/10/17 16:29 03/11/17 20:15 Nitroglycerin (Ntg) 0.4 mg Q5M PRN SL Prn Chest Pain 03/11/17 12:00 04/10/17 11:59 Ondansetron HCl (Zofran) 4 mg Q6H PRN IVP Nausea & Vomiting 03/11/17 12:00 04/10/17 11:59 Polyethylene Glycol (Miralax) 17 gm DAILYPRN PRN ORAL Constipation 03/11/17 12:00 04/10/17 11:59 Rivaroxaban (Xarelto) 20 mg DAILY ORAL 03/12/17 09:00 04/11/17 08:59 Temazepam (Restoril) 15 mg HSPRN PRN ORAL Insomnia 03/11/17 21:00 03/18/17 20:59 Vancomycin HCl (Vanco rx to dose) 1 ea DAILY PRN MISC Per rx protocol 03/11/17 12:00 04/10/17 11:59 Vancomycin HCl/ Dextrose 250 ml @ 125 mls/hr Q24H IVPB 03/11/17 14:30 03/16/17 14:29 03/11/17 16:54 Assessment/Plan Assessment/Plan Abx: IV Vancomycin 03/11- Aztreonam 03/11- Levaquin x1 03/11 Assesment: URI, cough- r/o Flu vs other viral -CXR: Cardiomegaly. Mild interstitial congestion and possible right basilar airspace disease Afebrile, no leukocytosis REcent hx of Proteus UTI/ infected stone , s/p 10 d abx (end date 02/15) -surveillance 03/11: u/a wbc 10/15; ucx NTD CT: Bilateral renal calculi as detailed above. Overall stone burden increased since prior study of 08/29/2015. No evidence of obstructive uropathy -u/a wbc 20-30, nit +, leuk +3; ucx >100k P. 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 Hypertension. Chronic obstructive pulmonary disease. SSS s/p PPM in the left anterior chest wall HLD hx of R and L ankle fx Plan: -D/C IV Vancomycin #2 and aztreonam and switch to PO Levaquin -get EKG, monitor QTc -s/p 4d PO keflex 02/15 -s/p 3d Ceftriaxone 02/11 -s/p d#4 IV Cefepime abx 02/09 -s/p 1 dose Alisson/Ceftriaxone 02/06 -s/p 10 d Ertapenem 01/28 -s/p 3d Cefepime / -s/p 1d Vanco 10/ -s/p 1 d Meropenem 01/16 -repeat flu test -f/u cx -Monitor CBC/BMP, temperatures Thank you for this consultation. Will continue to follow along with you. Discussed with Lila Aceves M.D. Mar 12, 2017 11:12
[2017-03-12 12:15] VITALS: BP 100/66
--- NOTE | 2017-03-12 12:58 | Wound Care Consultation ---
Wound Assessment Wound Assessment : Wound Number: 1 Wound Present on Admission: Yes New Wound: No Status Change of Wound: No Wound Location Body Site Modif: mid Wound Location Body Site: other - Sacrococcygeal full thickness scar tissue extending to left and right buttocks Wound Type: scar Dyan Test: Does not Dyan Wound Thickness: Full Thickness Percent of Wound [place]/Red: 100 Wound Drainage Amount: None Wound Drainage Odor: None/Absent Tissue Surrounding Wound: Intact Wound Comment #1 Sacrococcygeal full thickness scar tissue extending to left and right buttocks #2 Left and right lateral and medial malleolus with full thickness scar tissue #3 Left and right feet with dry and flaky skin Recommendation -Local wound care per protocol for dry skin on both feet -Offload both heels -Heel protector on both heels -Keep clean and dry -Optimize nutrition -Turn and reposition -Apply A&D oint on both lower legs -Low air loss SPR mattress -Assess and f/u accordingly for any changes SANDRO RIDER RN Mar 12, 2017 12:58
[2017-03-12] MEDS ORDERED: Tubing IV Secondary IV ONE (13:39)
[2017-03-12] MEDS ORDERED: NS 500ML ONE (13:39)
[2017-03-12] MEDS ORDERED: Levofloxacin 500mg tab ORAL SCH (14:00)
--- NOTE | 2017-03-12 14:17 | Diagnostic Imaging Report ---
Indication: PAIN Technique: One views of the left hip Comparison: None Findings: Exam is extremely limited, due to limited mobility the patient and resultant suboptimal positioning, patient body habitus, use of portable technique, and osteoporosis No gross acute fracture or dislocation. The joint spaces are preserved. Surgical clips are seen in the left pelvis Impression: No gross acute bony trauma or other acute abnormality Extremely limited exam, as described. Nondisplaced fractures can easily be occult, and cross-sectional imaging should be considered if there is high clinical suspicion
--- NOTE | 2017-03-12 14:20 | Diagnostic Imaging Report ---
Indication: Right hip pain Technique: One view of the right hip Comparison: None Findings: Exam is extremely limited. Projection could be obtained. Patient body habitus and osteoporosis also limited exam No gross acute fractures or dislocations however, exam is essentially nondiagnostic for exclusion of such given the limitations of positioning. The joint spaces are preserved. Bones are demineralized Impression: Extremely limited, essentially nondiagnostic exam. No gross acute pathology
[2017-03-12] MEDS: Vitamin A&D Oint 2oz Tube TOPIC SCH ×2 (14:35→20:59)
[2017-03-12] MEDS: Norco 5mg/325mg tab ORAL PRN (15:33)
--- NOTE | 2017-03-12 15:46 | Internal Med Progress Note ---
Subjective Date of Service: Mar 12, 2017 Physician Name Chema Vázquez Attending Physician Zion Echevarria MD Current Medications Medications (Trade) Dose Ordered Sig/Joann Route PRN Reason Start Time Stop Time Status Last Admin Dose Admin Acetaminophen (Tylenol) 650 mg Q4H PRN ORAL T>100.5 F 03/11/17 12:00 04/10/17 11:59 Acetaminophen/ Hydrocodone Bitart ([place] 5/325) 1 tab Q6H PRN ORAL Severe Pain (Pain Scale 7-10) 03/12/17 13:15 03/19/17 13:14 03/12/17 15:33 Al Hydroxide/Mg Hydroxide (Mylanta II) 30 ml Q6H PRN ORAL dyspepsia 03/11/17 12:00 04/10/17 11:59 Albuterol/ Ipratropium (Albuterol/ Ipratropium) 3 ml Q4H PRN HHN Shortness of Breath 03/11/17 12:00 03/16/17 11:59 Atorvastatin Calcium (Lipitor) 10 mg BEDTIME ORAL 03/11/17 21:00 04/10/17 20:59 03/11/17 20:13 Dextrose (Dextrose 50%) STAT PRN IV Hypoglycemia 03/11/17 12:00 04/10/17 11:59 Gabapentin (Neurontin) 100 mg Q8HR ORAL 03/11/17 14:00 04/10/17 13:59 03/12/17 14:35 Hydralazine HCl (Apresoline) 25 mg EVERY 6 HOURS ORAL 03/11/17 12:00 04/10/17 11:59 03/12/17 05:59 Insulin Aspart (NovoLOG) BEFORE MEALS AND HS SUBQ 03/11/17 16:30 04/10/17 16:29 03/12/17 12:04 Levofloxacin (Levaquin) 500 mg DAILY@1400 ORAL 03/12/17 14:00 03/19/17 13:59 03/12/17 14:35 Nitroglycerin (Ntg) 0.4 mg Q5M PRN SL Prn Chest Pain 03/11/17 12:00 04/10/17 11:59 Ondansetron HCl (Zofran) 4 mg Q6H PRN IVP Nausea & Vomiting 03/11/17 12:00 04/10/17 11:59 Polyethylene Glycol (Miralax) 17 gm DAILYPRN PRN ORAL Constipation 03/11/17 12:00 04/10/17 11:59 Rivaroxaban (Xarelto) 20 mg DAILY ORAL 03/12/17 09:00 04/11/17 08:59 Temazepam (Restoril) 15 mg HSPRN PRN ORAL Insomnia 03/11/17 21:00 03/18/17 20:59 Vitamin A/Vitamin D (A & D Oint) 1 applic EVERY 12 HOURS TOPIC 03/12/17 14:00 04/11/17 13:59 03/12/17 14:35 Allergies: Coded Allergies: ERYTHROMYCIN BASE (Verified Allergy, Intermediate, 08/28/16) CODEINE (Verified Allergy, Unknown, 03/12/17) 03/12: PER PT, TOLERATED NORCO IN THE PAST MEPERIDINE (Verified Allergy, Unknown, 08/28/16) PENICILLINS (Verified Allergy, Unknown, 03/12/17) Tolerated Cefepime, Ceftriaxone, Keflex -02/2017 ROS Limited/Unobtainable: No Constitutional: Reports: no symptoms HEENT: Reports: no symptoms Cardiovascular: Reports: no symptoms Respiratory: Reports: cough, shortness of breath Gastrointestinal/Abdominal: Reports: no symptoms Genitourinary: Reports: no symptoms Neurologic/Psychiatric: Reports: no symptoms Subjective 76 YO F admitted with cough. Now purulent bronchitis. Cover for Internal Med- Dr Echevarria. Objective Last Vital Signs Date Time Temp Pulse Resp B/P (MAP) Pulse Ox O2 Delivery O2 Flow Rate FiO2 03/12/17 12:15 98.6 68 20 100/66 97 Nasal Cannula 2.0 68 03/12/17 07:00 28 General Appearance: WD/WN, no apparent distress, alert EENT: PERRL/EOMI, normal ENT inspection Neck: non-tender, normal alignment, supple, normal inspection Cardiovascular: normal peripheral pulses, normal rate, regular rhythm, no gallop/murmur, no JVD Respiratory/Chest: chest wall non-tender, lungs clear, normal breath sounds, no respiratory distress, no accessory muscle use Abdomen: normal bowel sounds, non tender, soft, no organomegaly, no mass Extremities: normal range of motion Neurologic: rn home care II-XII grossly normal, no motor/sensory deficits Skin: normal pigmentation, warm/dry Laboratory Tests Test 03/12/17 05:10 White Blood Count 5.7 K/UL (4.8-10.8) Red Blood Count 4.10 M/UL (4.20-5.40) L Hemoglobin 11.0 G/DL (12.0-16.0) L Hematocrit 34.3 % (37.0-47.0) L Mean Corpuscular Volume 84 FL (80-99) Mean Corpuscular Hemoglobin 26.9 PG (27.0-31.0) L Mean Corpuscular Hemoglobin Concent 32.1 G/DL (32.0-36.0) Red Cell Distribution Width 13.9 % (11.6-14.8) Platelet Count 153 K/UL (150-450) Mean Platelet Volume 8.4 FL (6.5-10.1) Neutrophils (%) (Auto) 52.8 % (45.0-75.0) Lymphocytes (%) (Auto) 31.2 % (20.0-45.0) Monocytes (%) (Auto) 10.2 % (1.0-10.0) H Eosinophils (%) (Auto) 4.5 % (0.0-3.0) H Basophils (%) (Auto) 1.2 % (0.0-2.0) Sodium Level 142 MMOL/L (136-145) Potassium Level 4.0 MMOL/L (3.5-5.1) Chloride Level 107 MMOL/L (98-107) Carbon Dioxide Level 27 MMOL/L (21-32) Anion Gap 8 mmol/L (5-15) Blood Urea Nitrogen 16 mg/dL (7-18) Creatinine 0.7 MG/DL (0.55-1.30) Estimat Glomerular Filtration Rate mL/min (>60) Glucose Level 118 MG/DL (74-106) H Calcium Level 9.0 MG/DL (8.5-10.1) Phosphorus Level 4.2 MG/DL (2.5-4.9) Albumin 3.2 G/DL (3.4-5.0) L Microbiology Date/Time Source Procedure Growth Status 03/11/17 10:45 Nasal Nares Influenza Types A,B Antigen (NELLY) - Final Complete 03/11/17 12:21 Urine,Clean Catch Urine Culture - Preliminary NO GROWTH Resulted Intake and Output 03/12/17 03/13/17 19:00 07:00 Intake Total 240 ml Balance 240 ml Intake Oral 240 ml # Voids 2 Assessment/Plan Problem List: (1) URI (upper respiratory infection) Assessment & Plan: Influenza A & B neg (2) Purulent bronchitis Assessment & Plan: Continue oral levaquim per ID (3) Sick sinus syndrome (4) HTN (hypertension) Assessment & Plan: Continue hydralazine. (5) Hypercholesterolemia Assessment & Plan: Continue lipitor (6) COPD (chronic obstructive pulmonary disease) (7) Diabetes mellitus, type II Assessment & Plan: Continue novolog sliding scale. (8) Pacemaker Status: progressing CHEMA VÁZQUEZ Mar 12, 2017 15:46
[2017-03-12 16:10] VITALS: BP 123/74
[2017-03-12] MEDS ORDERED: Albuterol/Ipratropium 3ml neb HHN PRN (16:30)
--- NOTE | 2017-03-12 16:37 | Pulmonology Progress Note ---
Assessment/Plan Problems: (1) Purulent bronchitis (2) COPD (chronic obstructive pulmonary disease) (3) HTN (hypertension) (4) Pacemaker (5) Hepatitis C (6) Gout Assessment/Plan improving continue abx respiratory treatment symptomatic treatment monitor BP cxr and bnp in am dvt prophylaxis. Subjective ROS Limited/Unobtainable: No Interval Events: still coughing Constitutional: Reports: no symptoms HEENT: Repors: no symptoms Respiratory: Reports: no symptoms Allergies: Coded Allergies: ERYTHROMYCIN BASE (Verified Allergy, Intermediate, 08/28/16) CODEINE (Verified Allergy, Unknown, 03/12/17) 03/12: PER PT, TOLERATED NORCO IN THE PAST MEPERIDINE (Verified Allergy, Unknown, 08/28/16) PENICILLINS (Verified Allergy, Unknown, 03/12/17) Tolerated Cefepime, Ceftriaxone, Keflex -02/2017 Objective Last 24 Hour Vital Signs Date Time Temp Pulse Resp B/P (MAP) Pulse Ox O2 Delivery O2 Flow Rate FiO2 03/12/17 12:15 98.6 68 20 100/66 97 Nasal Cannula 2.0 68 03/12/17 12:00 100/66 03/12/17 08:15 98.4 84 20 97/65 99 Nasal Cannula 2.0 84 03/12/17 07:00 97 Nasal Cannula 2.0 28 03/12/17 07:00 Nasal Cannula 2.0 28 03/12/17 05:59 116/75 03/12/17 03:35 97.6 85 20 116/75 97 Nasal Cannula 85 03/12/17 00:00 116/70 03/11/17 23:50 97.3 90 20 116/70 Room Air 03/11/17 19:35 97.6 91 20 109/61 97 Room Air 03/11/17 16:59 115/74 Intake and Output 03/12/17 03/13/17 19:00 07:00 Intake Total 360 ml Balance 360 ml Intake Oral 360 ml # Voids 4 General Appearance: WD/WN HEENT: normocephalic, atraumatic Respiratory/Chest: chest wall non-tender, lungs clear Cardiovascular: normal peripheral pulses, normal rate Abdomen: normal bowel sounds, soft, non tender Genitourinary: normal external genitalia Extremities: no cyanosis Neurologic/Psychiatric: laboratory technician II-XII grossly normal, no motor/sensory deficits Microbiology Date/Time Source Procedure Growth Status 03/11/17 10:45 Nasal Nares Influenza Types A,B Antigen (NELLY) - Final Complete 03/11/17 12:21 Urine,Clean Catch Urine Culture - Preliminary NO GROWTH Resulted Laboratory Tests 03/12/17 05:10: White Blood Count 5.7, Red Blood Count 4.10L, Hemoglobin 11.0L, Hematocrit 34.3L , Mean Corpuscular Volume 84, Mean Corpuscular Hemoglobin 26.9L, Mean Corpuscular Hemoglobin Concent 32.1, Red Cell Distribution Width 13.9, Platelet Count 153, Mean Platelet Volume 8.4, Neutrophils (%) (Auto) 52.8, Lymphocytes (% ) (Auto) 31.2, Monocytes (%) (Auto) 10.2H, Eosinophils (%) (Auto) 4.5H, Basophils (%) (Auto) 1.2, Sodium Level 142, Potassium Level 4.0, Chloride Level 107, Carbon Dioxide Level 27, Anion Gap 8, Blood Urea Nitrogen 16, Creatinine 0.7, Estimat Glomerular Filtration Rate , Glucose Level 118H, Calcium Level 9.0 , Phosphorus Level 4.2, Albumin 3.2L Current Medications Medications (Trade) Dose Ordered Sig/Joann Route PRN Reason Start Time Stop Time Status Last Admin Dose Admin Acetaminophen (Tylenol) 650 mg Q4H PRN ORAL T>100.5 F 03/11/17 12:00 04/10/17 11:59 Acetaminophen/ Hydrocodone Bitart ([place] 5/325) 1 tab Q6H PRN ORAL Severe Pain (Pain Scale 7-10) 03/12/17 13:15 03/19/17 13:14 03/12/17 15:33 Al Hydroxide/Mg Hydroxide (Mylanta II) 30 ml Q6H PRN ORAL dyspepsia 03/11/17 12:00 04/10/17 11:59 Albuterol/ Ipratropium (Albuterol/ Ipratropium) 3 ml Q4H PRN HHN Shortness of Breath 03/11/17 12:00 03/16/17 11:59 Atorvastatin Calcium (Lipitor) 10 mg BEDTIME ORAL 03/11/17 21:00 04/10/17 20:59 03/11/17 20:13 Dextrose (Dextrose 50%) STAT PRN IV Hypoglycemia 03/11/17 12:00 12/29/17 11:59 Gabapentin (Neurontin) 100 mg Q8HR ORAL 03/11/17 14:00 04/10/17 13:59 03/12/17 14:35 Hydralazine HCl (Apresoline) 25 mg EVERY 6 HOURS ORAL 03/11/17 12:00 04/10/17 11:59 03/12/17 05:59 Insulin Aspart (NovoLOG) BEFORE MEALS AND HS SUBQ 03/11/17 16:30 04/10/17 16:29 03/12/17 12:04 Levofloxacin (Levaquin) 500 mg DAILY@1400 ORAL 03/12/17 14:00 03/19/17 13:59 03/12/17 14:35 Nitroglycerin (Ntg) 0.4 mg Q5M PRN SL Prn Chest Pain 03/11/17 12:00 04/10/17 11:59 Ondansetron HCl (Zofran) 4 mg Q6H PRN IVP Nausea & Vomiting 03/11/17 12:00 04/10/17 11:59 Polyethylene Glycol (Miralax) 17 gm DAILYPRN PRN ORAL Constipation 03/11/17 12:00 04/10/17 11:59 Rivaroxaban (Xarelto) 20 mg DAILY ORAL 03/12/17 09:00 04/11/17 08:59 Temazepam (Restoril) 15 mg HSPRN PRN ORAL Insomnia 03/11/17 21:00 03/18/17 20:59 Vitamin A/Vitamin D (A & D Oint) 1 applic EVERY 12 HOURS TOPIC 03/12/17 14:00 04/11/17 13:59 03/12/17 14:35 JONH RODRIGUEZ Mar 12, 2017 16:37
[2017-03-12 20:01] VITALS: BP 114/77
[2017-03-12 23:51] VITALS: BP 106/68
[2017-03-13 04:00] VITALS: BP 125/78
[2017-03-13] MEDS: HydrALAZINE 25mg tab ORAL SCH ×4 (05:58→17:13)
[2017-03-13] MEDS: NovoLOG Insulin Flexpen SUBQ SCH ×4 (06:00→22:14)
[2017-03-13 07:31] LABS: BASOPHILS % (AUTO) 0.5 % (0.0-2.0); EOSINOPHILS % (AUTO) 5.5 % (0.0-3.0); LYMPHOCYTES % (AUTO) 32.2 % (20.0-45.0); MEAN CORPUSCULAR HEMOGLOBIN 26.3 PG (27.0-31.0); MEAN CORPUSCULAR HGB CONC 31.3 G/DL (32.0-36.0); MEAN CORPUSCULAR VOLUME 84 FL (80-99); MEAN PLATELET VOLUME 9.1 FL (6.5-10.1); MONOCYTES % (AUTO) 10.1 % (1.0-10.0); NEUTROPHILS % (AUTO) 51.7 % (45.0-75.0); PLATELET COUNT 149 K/UL (150-450); RED BLOOD COUNT 4.16 M/UL (4.20-5.40); WHITE BLOOD COUNT 6.3 K/UL (4.8-10.8)
[2017-03-13 07:42] LABS: ALANINE AMINOTRANSFERASE 18 U/L (12-78); ALBUMIN/GLOBULIN RATIO 0.8 (1.0-2.7); ANION GAP 6 mmol/L (5-15); ASPARTATE AMINO TRANSFERASE 18 U/L (15-37); CALCIUM 8.8 MG/DL (8.5-10.1); CARBON DIOXIDE 28 MMOL/L (21-32); CHLORIDE 107 MMOL/L (98-107); CREATININE 0.7 MG/DL (0.55-1.30); POTASSIUM 4.2 MMOL/L (3.5-5.1); SODIUM 141 MMOL/L (136-145); TOTAL PROTEIN 7.1 G/DL (6.4-8.2)
--- NOTE | 2017-03-13 07:50 | Pulmonology Progress Note ---
Assessment/Plan Assessment/Plan ASSESSMENT Acute bronchitis possible PNA HTN PAF Pacemaker ( recent interrogation in January revealed normal functioning) DM COPD PLAN OF CARE MS floor empiric abx influenza screen negative UA negative, get sputum cx a/tussive prn CXR 03/13 -Apparent increased right lung interstitial and hazy airspace opacity and improving left-sided opacities. O2 HHN prn initial CXR with mild interstitial congestion, elevated pro BNP ECHO done in January 2017 with rEF 40-45% and RVSP of 32 continue Xarelto rate control , appears in SR Low dose diuretic On MARY, no BB due to intermittent bradycardia, hx of SSS, continue Hydralazine consider pacemaker interrogation - even with pacemaker appears intermittently in HR 50 and below-per PMD swallow eval bowel regimen case discussed and evaluated by supervising physician Subjective Allergies: Coded Allergies: ERYTHROMYCIN BASE (Verified Allergy, Intermediate, 08/28/16) CODEINE (Verified Allergy, Unknown, 03/12/17) 03/12: PER PT, TOLERATED NORCO IN THE PAST MEPERIDINE (Verified Allergy, Unknown, 08/28/16) PENICILLINS (Verified Allergy, Unknown, 03/12/17) Tolerated Cefepime, Ceftriaxone, Keflex -02/2017 Subjective afebrile, no leukocytosis occasional SOB, +cough dry, no wheezing, no hemoptysis, no chest pain, no palpitations Objective Last 24 Hour Vital Signs Date Time Temp Pulse Resp B/P (MAP) Pulse Ox O2 Delivery O2 Flow Rate FiO2 03/13/17 05:58 125/78 03/13/17 04:00 98 Nasal Cannula 2.0 03/13/17 04:00 97.8 85 18 125/78 99 Nasal Cannula 2.0 03/13/17 00:00 106/68 03/13/17 00:00 99 Nasal Cannula 2.0 03/12/17 23:51 97.9 58 18 106/68 97 Nasal Cannula 2.0 03/12/17 20:01 98.3 88 18 114/77 97 Nasal Cannula 2.0 03/12/17 20:00 97 Nasal Cannula 2.0 03/12/17 19:59 Nasal Cannula 2.0 28 03/12/17 19:59 99 Nasal Cannula 2.0 28 03/12/17 18:03 125/73 03/12/17 16:10 98.2 86 19 123/74 99 Nasal Cannula 2.0 85 03/12/17 12:15 98.6 68 20 100/66 97 Nasal Cannula 2.0 68 03/12/17 12:00 100/66 03/12/17 08:15 98.4 84 20 97/65 99 Nasal Cannula 2.0 84 General Appearance: no acute distress, other - awake, alert, responsive, obese female in NAD HEENT: normocephalic, atraumatic, anicteric, mucous membranes moist Respiratory/Chest: no respiratory distress, no accessory muscle use, other - Left chest pacemaker Cardiovascular: normal peripheral pulses, normal rate, regular rhythm, no JVD Abdomen: normal bowel sounds, soft, non tender - obese Extremities: no edema, pedal pulses normal 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/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, alert, responsive Microbiology Date/Time Source Procedure Growth Status 03/11/17 10:45 Blood Blood Culture - Preliminary NO GROWTH AFTER 24 HOURS Resulted 03/11/17 10:30 Blood Blood Culture - Preliminary NO GROWTH AFTER 24 HOURS Resulted 03/12/17 16:00 Nasal Nares Influenza Types A,B Antigen (NELLY) - Final Complete 03/11/17 10:45 Nasal Nares Influenza Types A,B Antigen (NELLY) - Final Complete 03/11/17 12:21 Urine,Clean Catch Urine Culture - Preliminary NO GROWTH Resulted Laboratory Tests 03/13/17 05:20: White Blood Count 6.3, Red Blood Count 4.16L, Hemoglobin 10.9L, Hematocrit 35.0L , Mean Corpuscular Volume 84, Mean Corpuscular Hemoglobin 26.3L, Mean Corpuscular Hemoglobin Concent 31.3L, Red Cell Distribution Width 14.0, Platelet Count 149L, Mean Platelet Volume 9.1, Neutrophils (%) (Auto) 51.7, Lymphocytes (%) (Auto) 32.2, Monocytes (%) (Auto) 10.1H, Eosinophils (%) (Auto) 5.5H, Basophils (%) (Auto) 0.5, Sodium Level 141, Potassium Level 4.2, Chloride Level 107, Carbon Dioxide Level 28, Anion Gap 6, Blood Urea Nitrogen 17, Creatinine 0.7, Estimat Glomerular Filtration Rate , Glucose Level 117H, Calcium Level 8.8, Total Bilirubin 0.3, Aspartate Amino Transf (AST/SGOT) 18, Alanine Aminotransferase (ALT/SGPT) 18, Alkaline Phosphatase 93, Pro-B-Type Natriuretic Peptide [Pending], Total Protein 7.1, Albumin 3.1L, Globulin 4.0, Albumin/Globulin Ratio 0.8L Current Medications Medications (Trade) Dose Ordered Sig/Joann Route PRN Reason Start Time Stop Time Status Last Admin Dose Admin Acetaminophen (Tylenol) 650 mg Q4H PRN ORAL T>100.5 F 03/11/17 12:00 04/10/17 11:59 Acetaminophen/ Hydrocodone Bitart ([place] 5/325) 1 tab Q6H PRN ORAL Severe Pain (Pain Scale 7-10) 03/12/17 13:15 03/19/17 13:14 03/12/17 15:33 Al Hydroxide/Mg Hydroxide (Mylanta II) 30 ml Q6H PRN ORAL dyspepsia 03/11/17 12:00 04/10/17 11:59 Albuterol/ Ipratropium (Albuterol/ Ipratropium) 3 ml Q4H PRN HHN Shortness of Breath 03/11/17 12:00 03/16/17 11:59 Atorvastatin Calcium (Lipitor) 10 mg BEDTIME ORAL 03/11/17 21:00 04/10/17 20:59 03/12/17 20:52 Dextrose (Dextrose 50%) STAT PRN IV Hypoglycemia 03/11/17 12:00 04/10/17 11:59 Gabapentin (Neurontin) 100 mg Q8HR ORAL 03/11/17 14:00 04/10/17 13:59 03/13/17 05:58 Hydralazine HCl (Apresoline) 25 mg EVERY 6 HOURS ORAL 03/11/17 12:00 04/10/17 11:59 03/13/17 05:58 Insulin Aspart (NovoLOG) BEFORE MEALS AND HS SUBQ 03/11/17 16:30 04/10/17 16:29 03/13/17 06:00 Levofloxacin (Levaquin) 500 mg DAILY@1400 ORAL 03/12/17 14:00 03/19/17 13:59 03/12/17 14:35 Nitroglycerin (Ntg) 0.4 mg Q5M PRN SL Prn Chest Pain 03/11/17 12:00 04/10/17 11:59 Ondansetron HCl (Zofran) 4 mg Q6H PRN IVP Nausea & Vomiting 03/11/17 12:00 04/10/17 11:59 Polyethylene Glycol (Miralax) 17 gm DAILYPRN PRN ORAL Constipation 03/11/17 12:00 04/10/17 11:59 Rivaroxaban (Xarelto) 20 mg DAILY ORAL 03/12/17 09:00 04/11/17 08:59 Temazepam (Restoril) 15 mg HSPRN PRN ORAL Insomnia 03/11/17 21:00 03/18/17 20:59 Vitamin A/Vitamin D (A & D Oint) 1 applic EVERY 12 HOURS TOPIC 03/12/17 14:00 04/11/17 13:59 03/12/17 20:59 Satya ([facility])Margo NP Mar 13, 2017 07:50
[2017-03-13 08:40] VITALS: BP 106/50
[2017-03-13] MEDS: Xarelto 10mg tab ORAL SCH (09:32)
[2017-03-13] MEDS: Vitamin A&D Oint 2oz Tube TOPIC SCH ×2 (09:32→22:10)
--- NOTE | 2017-03-13 11:47 | Infectious Diseases Prog Note ---
Assessment/Plan Assessment/Plan Assesment: URI, cough-, bronchitis r/o Flu vs other viral -CXR: Cardiomegaly. Mild interstitial congestion and possible right basilar airspace disease -Influenza neg x2 Afebrile, no leukocytosis REcent hx of Proteus UTI/ infected stone , s/p 10 d abx (end date 02/15) -surveillance 03/11: u/a wbc 10-15 (pyuria improved from previosu u/a); ucx p CT: Bilateral renal calculi as detailed above. Overall stone burden increased since prior study of 08/29/2015. No evidence of obstructive uropathy -u/a wbc 20-30, nit +, leuk +3; ucx >100k P. 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 Hypertension. Chronic obstructive pulmonary disease. SSS s/p PPM in the left anterior chest wall HLD hx of R and L ankle fx Plan: -switch PO Levaquin abx d#06/15 to Cefdinir 300mg bid (although paced, prolonged QTc) for bronchitis -s/p 2d IV Vancomycin, 1d Aztreonam 03/12 -s/p 4d PO keflex 02/15 -s/p 3d Ceftriaxone 02/11 -s/p d#4 IV Cefepime abx 02/09 -s/p 1 dose Alisson/Ceftriaxone 02/06 -s/p 10 d Ertapenem 01/28 -s/p 3d Cefepime 01/19 -s/p 1d Vanco 10/ -s/p 1 d Meropenem 10/ -f/u ucx; if recurrent bacteriuria, consider suppressive abx therapy vs urology evaluation for stone burden (?infection reservoir_ -f/u cx -Monitor CBC/BMP, temperatures Thank you for this consultation. Will continue to follow along with you. Discussed with RN. Subjective Allergies: Coded Allergies: ERYTHROMYCIN BASE (Verified Allergy, Intermediate, 08/28/16) CODEINE (Verified Allergy, Unknown, 03/12/17) 03/12: PER PT, TOLERATED NORCO IN THE PAST MEPERIDINE (Verified Allergy, Unknown, 08/28/16) PENICILLINS (Verified Allergy, Unknown, 03/12/17) Tolerated Cefepime, Ceftriaxone, Keflex Subjective afebrile no leukocytosis ucx p Objective Vital Signs Last 24 Hour Vital Signs Date Time Temp Pulse Resp B/P (MAP) Pulse Ox O2 Delivery O2 Flow Rate FiO2 03/13/17 10:35 Nasal Cannula 2.0 28 03/13/17 10:33 99 Nasal Cannula 2.0 28 03/13/17 08:40 97.2 78 18 106/50 95 78 03/13/17 05:58 125/78 03/13/17 04:00 98 Nasal Cannula 2.0 03/13/17 04:00 97.8 85 18 125/78 99 Nasal Cannula 2.0 03/13/17 00:00 106/68 03/13/17 00:00 99 Nasal Cannula 2.0 03/12/17 23:51 97.9 58 18 106/68 97 Nasal Cannula 2.0 03/12/17 20:01 98.3 88 18 114/77 97 Nasal Cannula 2.0 03/12/17 20:00 97 Nasal Cannula 2.0 03/12/17 19:59 Nasal Cannula 2.0 28 03/12/17 19:59 99 Nasal Cannula 2.0 28 03/12/17 18:03 125/73 03/12/17 16:10 98.2 86 19 123/74 99 Nasal Cannula 2.0 85 03/12/17 12:15 98.6 68 20 100/66 97 Nasal Cannula 2.0 68 03/12/17 12:00 100/66 Height (Feet): 5 Height (Inches): 4.00 Weight (Pounds): 175 Objective GENERAL: The patient is a well-developed, well-nourished female, in no apparent distress. HEENT: Eyes, pupils equal and responsive to light and accommodation. Extraocular movements are intact. NECK: Supple. No lymphadenopathy. CHEST: Lungs are clear to auscultation bilaterally without wheezes or rales. CARDIOVASCULAR: Regular rhythm and rate. S1, S2 normal without murmurs, rubs, or gallops. ABDOMEN: Soft, nontender, nondistended. Positive bowel sounds. No evidence of hepatosplenomegaly. Currently, no rebound or guarding noted. EXTREMITIES: Negative for clubbing, cyanosis, or edema. NEUROLOGIC: Cranial nerves II through XII are grossly intact without focal deficits. Motor strength is 5/5 bilaterally intact. Deep tendon reflexes are 2+, plantar. Microbiology Date/Time Source Procedure Growth Status 03/11/17 10:45 Blood Blood Culture - Preliminary NO GROWTH AFTER 24 HOURS Resulted 03/11/17 10:30 Blood Blood Culture - Preliminary NO GROWTH AFTER 24 HOURS Resulted 03/12/17 16:00 Nasal Nares Influenza Types A,B Antigen (NELLY) - Final Complete 03/11/17 12:00 Nasal Nares MRSA Culture - Final NO METHICILLIN RESISTANT STAPH AUREUS... Complete 03/11/17 10:45 Nasal Nares Influenza Types A,B Antigen (NELLY) - Final Complete 03/11/17 12:21 Urine,Clean Catch Urine Culture - Preliminary Resulted 03/11/17 12:00 Rectum VRE Culture - Final NO VANCOMYCIN RESISTANT ENTEROCOCCUS ... Complete Laboratory Tests Test 03/13/17 05:20 White Blood Count 6.3 K/UL (4.8-10.8) Red Blood Count 4.16 M/UL (4.20-5.40) L Hemoglobin 10.9 G/DL (12.0-16.0) L Hematocrit 35.0 % (37.0-47.0) L Mean Corpuscular Volume 84 FL (80-99) Mean Corpuscular Hemoglobin 26.3 PG (27.0-31.0) L Mean Corpuscular Hemoglobin Concent 31.3 G/DL (32.0-36.0) L Red Cell Distribution Width 14.0 % (11.6-14.8) Platelet Count 149 K/UL (150-450) L Mean Platelet Volume 9.1 FL (6.5-10.1) Neutrophils (%) (Auto) 51.7 % (45.0-75.0) Lymphocytes (%) (Auto) 32.2 % (20.0-45.0) Monocytes (%) (Auto) 10.1 % (1.0-10.0) H Eosinophils (%) (Auto) 5.5 % (0.0-3.0) H Basophils (%) (Auto) 0.5 % (0.0-2.0) Sodium Level 141 MMOL/L (136-145) Potassium Level 4.2 MMOL/L (3.5-5.1) Chloride Level 107 MMOL/L (98-107) Carbon Dioxide Level 28 MMOL/L (21-32) Anion Gap 6 mmol/L (5-15) Blood Urea Nitrogen 17 mg/dL (7-18) Creatinine 0.7 MG/DL (0.55-1.30) Estimat Glomerular Filtration Rate mL/min (>60) Glucose Level 117 MG/DL (74-106) H Calcium Level 8.8 MG/DL (8.5-10.1) Total Bilirubin 0.3 MG/DL (0.2-1.0) Aspartate Amino Transf (AST/SGOT) 18 U/L (15-37) Alanine Aminotransferase (ALT/SGPT) 18 U/L (12-78) Alkaline Phosphatase 93 U/L (46-116) Pro-B-Type Natriuretic Peptide 2164 pg/mL (0-125) H Total Protein 7.1 G/DL (6.4-8.2) Albumin 3.1 G/DL (3.4-5.0) L Globulin 4.0 g/dL Albumin/Globulin Ratio 0.8 (1.0-2.7) L Current Medications Medications (Trade) Dose Ordered Sig/Joann Route PRN Reason Start Time Stop Time Status Last Admin Dose Admin Acetaminophen (Tylenol) 650 mg Q4H PRN ORAL T>100.5 F 03/11/17 12:00 04/10/17 11:59 Acetaminophen/ Hydrocodone Bitart ([place] 5/325) 1 tab Q6H PRN ORAL Severe Pain (Pain Scale 7-10) 03/12/17 13:15 03/19/17 13:14 03/12/17 15:33 Al Hydroxide/Mg Hydroxide (Mylanta II) 30 ml Q6H PRN ORAL dyspepsia 03/11/17 12:00 04/10/17 11:59 Albuterol/ Ipratropium (Albuterol/ Ipratropium) 3 ml Q4H PRN HHN Shortness of Breath 03/11/17 12:00 03/16/17 11:59 Atorvastatin Calcium (Lipitor) 10 mg BEDTIME ORAL 03/11/17 21:00 04/10/17 20:59 03/12/17 20:52 Dextrose (Dextrose 50%) STAT PRN IV Hypoglycemia 03/11/17 12:00 04/10/17 11:59 Gabapentin (Neurontin) 100 mg Q8HR ORAL 03/11/17 14:00 04/10/17 13:59 03/13/17 05:58 Hydralazine HCl (Apresoline) 25 mg EVERY 6 HOURS ORAL 03/11/17 12:00 04/10/17 11:59 03/13/17 05:58 Insulin Aspart (NovoLOG) BEFORE MEALS AND HS SUBQ 03/11/17 16:30 04/10/17 16:29 03/13/17 06:00 Levofloxacin (Levaquin) 500 mg DAILY@1400 ORAL 03/12/17 14:00 03/19/17 13:59 03/12/17 14:35 Nitroglycerin (Ntg) 0.4 mg Q5M PRN SL Prn Chest Pain 03/11/17 12:00 04/10/17 11:59 Ondansetron HCl (Zofran) 4 mg Q6H PRN IVP Nausea & Vomiting 03/11/17 12:00 04/10/17 11:59 Polyethylene Glycol (Miralax) 17 gm DAILYPRN PRN ORAL Constipation 03/11/17 12:00 04/10/17 11:59 Rivaroxaban (Xarelto) 20 mg DAILY ORAL 03/12/17 09:00 04/11/17 08:59 03/13/17 09:32 Temazepam (Restoril) 15 mg HSPRN PRN ORAL Insomnia 03/11/17 21:00 03/18/17 20:59 Vitamin A/Vitamin D (A & D Oint) 1 applic EVERY 12 HOURS TOPIC 03/12/17 14:00 04/11/17 13:59 03/13/17 09:32 Lila Gonzalez M.D. Mar 13, 2017 11:47
[2017-03-13 12:00] VITALS: BP 136/73
[2017-03-13] MEDS: Cefdinir 300mg cap ORAL SCH ×2 (13:19→22:11)
--- NOTE | 2017-03-13 13:54 | Diagnostic Imaging Report ---
Indication: DYSPNEA Technique: One view of the chest Comparison: 03/11/2017 Findings: Patient is rotated to the right. There is increased interstitial and airspace opacity throughout the right lung, equivocally slightly increased on the prior exam. Opacities in the left lung appear less prominent, left lung and pleural space now largely clear. The heart remains enlarged. Left chest pacemaker again demonstrated Impression: Apparent increased right lung interstitial and hazy airspace opacity and improving left-sided opacities. This could in part be an artifact due to differences in rotation, but could also indicate worsening right and improving left frontal disease. Correlate with clinical findings Other findings as noted.
--- NOTE | 2017-03-13 18:13 | Internal Med Progress Note ---
Subjective Date of Service: Mar 13, 2017 Physician Name Vázquez,Chema Attending Physician Zion Echevarria MD Current Medications Medications (Trade) Dose Ordered Sig/Joann Route PRN Reason Start Time Stop Time Status Last Admin Dose Admin Acetaminophen (Tylenol) 650 mg Q4H PRN ORAL T>100.5 F 03/11/17 12:00 04/10/17 11:59 Acetaminophen/ Hydrocodone Bitart ([place] 5/325) 1 tab Q6H PRN ORAL Severe Pain (Pain Scale 7-10) 03/12/17 13:15 03/19/17 13:14 03/12/17 15:33 Al Hydroxide/Mg Hydroxide (Mylanta II) 30 ml Q6H PRN ORAL dyspepsia 03/11/17 12:00 04/10/17 11:59 Albuterol/ Ipratropium (Albuterol/ Ipratropium) 3 ml Q4H PRN HHN Shortness of Breath 03/11/17 12:00 03/16/17 11:59 Atorvastatin Calcium (Lipitor) 10 mg BEDTIME ORAL 03/11/17 21:00 04/10/17 20:59 03/12/17 20:52 Cefdinir (Cefdinir) 300 mg Q12HR ORAL 03/13/17 13:00 03/20/17 12:59 03/13/17 13:19 Dextrose (Dextrose 50%) STAT PRN IV Hypoglycemia 03/11/17 12:00 04/10/17 11:59 Gabapentin (Neurontin) 100 mg Q8HR ORAL 03/11/17 14:00 04/10/17 13:59 03/13/17 13:19 Hydralazine HCl (Apresoline) 25 mg EVERY 6 HOURS ORAL 03/11/17 12:00 04/10/17 11:59 03/13/17 17:13 Insulin Aspart (NovoLOG) BEFORE MEALS AND HS SUBQ 03/11/17 16:30 04/10/17 16:29 03/13/17 17:15 Nitroglycerin (Ntg) 0.4 mg Q5M PRN SL Prn Chest Pain 03/11/17 12:00 04/10/17 11:59 Ondansetron HCl (Zofran) 4 mg Q6H PRN IVP Nausea & Vomiting 03/11/17 12:00 04/10/17 11:59 Polyethylene Glycol (Miralax) 17 gm DAILYPRN PRN ORAL Constipation 03/11/17 12:00 04/10/17 11:59 Rivaroxaban (Xarelto) 20 mg DAILY ORAL 03/12/17 09:00 04/11/17 08:59 03/13/17 09:32 Temazepam (Restoril) 15 mg HSPRN PRN ORAL Insomnia 03/11/17 21:00 03/18/17 20:59 Vitamin A/Vitamin D (A & D Oint) 1 applic EVERY 12 HOURS TOPIC 03/12/17 14:00 04/11/17 13:59 03/13/17 09:32 Allergies: Coded Allergies: ERYTHROMYCIN BASE (Verified Allergy, Intermediate, 08/28/16) CODEINE (Verified Allergy, Unknown, 03/12/17) 03/12: PER PT, TOLERATED NORCO IN THE PAST MEPERIDINE (Verified Allergy, Unknown, 08/28/16) PENICILLINS (Verified Allergy, Unknown, 03/12/17) Tolerated Cefepime, Ceftriaxone, Keflex -02/2017 ROS Limited/Unobtainable: No Constitutional: Reports: no symptoms HEENT: Reports: no symptoms Cardiovascular: Reports: no symptoms Respiratory: Reports: cough, shortness of breath Gastrointestinal/Abdominal: Reports: no symptoms Genitourinary: Reports: no symptoms Neurologic/Psychiatric: Reports: no symptoms Subjective 76 YO F admitted with cough. Now purulent bronchitis. Cover for Internal Med- Dr Echevarria. Objective Last Vital Signs Date Time Temp Pulse Resp B/P (MAP) Pulse Ox O2 Delivery O2 Flow Rate FiO2 03/13/17 17:13 136/73 03/13/17 16:00 98.2 92 18 100 92 03/13/17 10:35 Nasal Cannula 2.0 28 Laboratory Tests Test 03/13/17 05:20 White Blood Count 6.3 K/UL (4.8-10.8) Red Blood Count 4.16 M/UL (4.20-5.40) L Hemoglobin 10.9 G/DL (12.0-16.0) L Hematocrit 35.0 % (37.0-47.0) L Mean Corpuscular Volume 84 FL (80-99) Mean Corpuscular Hemoglobin 26.3 PG (27.0-31.0) L Mean Corpuscular Hemoglobin Concent 31.3 G/DL (32.0-36.0) L Red Cell Distribution Width 14.0 % (11.6-14.8) Platelet Count 149 K/UL (150-450) L Mean Platelet Volume 9.1 FL (6.5-10.1) Neutrophils (%) (Auto) 51.7 % (45.0-75.0) Lymphocytes (%) (Auto) 32.2 % (20.0-45.0) Monocytes (%) (Auto) 10.1 % (1.0-10.0) H Eosinophils (%) (Auto) 5.5 % (0.0-3.0) H Basophils (%) (Auto) 0.5 % (0.0-2.0) Sodium Level 141 MMOL/L (136-145) Potassium Level 4.2 MMOL/L (3.5-5.1) Chloride Level 107 MMOL/L (98-107) Carbon Dioxide Level 28 MMOL/L (21-32) Anion Gap 6 mmol/L (5-15) Blood Urea Nitrogen 17 mg/dL (7-18) Creatinine 0.7 MG/DL (0.55-1.30) Estimat Glomerular Filtration Rate mL/min (>60) Glucose Level 117 MG/DL (74-106) H Calcium Level 8.8 MG/DL (8.5-10.1) Total Bilirubin 0.3 MG/DL (0.2-1.0) Aspartate Amino Transf (AST/SGOT) 18 U/L (15-37) Alanine Aminotransferase (ALT/SGPT) 18 U/L (12-78) Alkaline Phosphatase 93 U/L (46-116) Pro-B-Type Natriuretic Peptide 2164 pg/mL (0-125) H Total Protein 7.1 G/DL (6.4-8.2) Albumin 3.1 G/DL (3.4-5.0) L Globulin 4.0 g/dL Albumin/Globulin Ratio 0.8 (1.0-2.7) L Microbiology Date/Time Source Procedure Growth Status 03/11/17 10:45 Blood Blood Culture - Preliminary NO GROWTH AFTER 24 HOURS Resulted 03/11/17 10:30 Blood Blood Culture - Preliminary NO GROWTH AFTER 24 HOURS Resulted 03/12/17 16:00 Nasal Nares Influenza Types A,B Antigen (NELLY) - Final Complete 11/29/17 12:00 Nasal Nares MRSA Culture - Final NO METHICILLIN RESISTANT STAPH AUREUS... Complete 03/11/17 10:45 Nasal Nares Influenza Types A,B Antigen (NELLY) - Final Complete 03/11/17 12:21 Urine,Clean Catch Urine Culture - Preliminary Resulted 03/11/17 12:00 Rectum VRE Culture - Final NO VANCOMYCIN RESISTANT ENTEROCOCCUS ... 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 (5) Hypercholesterolemia Assessment & Plan: Continue lipitor (6) COPD (chronic obstructive pulmonary disease) (7) Diabetes mellitus, type II Assessment & Plan: Continue novolog sliding scale. (8) Pacemaker Status: progressing CHEMA VÁZQUEZ Mar 13, 2017 18:13
[2017-03-13 20:00] VITALS: BP 138/72
[2017-03-13] MEDS: Norco 5mg/325mg tab ORAL PRN (22:24)
[2017-03-14] VITALS: BP 133/86
[2017-03-14] MEDS: HydrALAZINE 25mg tab ORAL SCH ×3 (00:42→12:45)
[2017-03-14 04:00] VITALS: BP 145/76
[2017-03-14] MEDS: NovoLOG Insulin Flexpen SUBQ SCH ×2 (05:36→12:36)
[2017-03-14 07:43] LABS: BASOPHILS % (AUTO) 1.7 % (0.0-2.0); EOSINOPHILS % (AUTO) 4.4 % (0.0-3.0); LYMPHOCYTES % (AUTO) 31.2 % (20.0-45.0); MEAN CORPUSCULAR HEMOGLOBIN 27.1 PG (27.0-31.0); MEAN CORPUSCULAR HGB CONC 32.4 G/DL (32.0-36.0); MEAN CORPUSCULAR VOLUME 84 FL (80-99); MEAN PLATELET VOLUME 9.4 FL (6.5-10.1); MONOCYTES % (AUTO) 9.3 % (1.0-10.0); NEUTROPHILS % (AUTO) 53.3 % (45.0-75.0); PLATELET COUNT 178 K/UL (150-450); RED BLOOD COUNT 4.08 M/UL (4.20-5.40); RED CELL DISTRIBUTION WIDTH 13.8 % (11.6-14.8); WHITE BLOOD COUNT 6.6 K/UL (4.8-10.8)
[2017-03-14 08:00] VITALS: BP 110/77
[2017-03-14 08:02] LABS: ANION GAP 5 mmol/L (5-15); CALCIUM 8.9 MG/DL (8.5-10.1); CARBON DIOXIDE 28 MMOL/L (21-32); CHLORIDE 106 MMOL/L (98-107); CREATININE 0.6 MG/DL (0.55-1.30); POTASSIUM 3.9 MMOL/L (3.5-5.1); SODIUM 139 MMOL/L (136-145)
[2017-03-14] MEDS: Cefdinir 300mg cap ORAL SCH (09:13)
[2017-03-14] MEDS: Xarelto 10mg tab ORAL SCH (09:14)
[2017-03-14] MEDS: Vitamin A&D Oint 2oz Tube TOPIC SCH (09:14)
--- NOTE | 2017-03-14 10:06 | Infectious Diseases Prog Note ---
Assessment/Plan Assessment/Plan Assesment: URI, cough-, bronchitis r/o Flu vs other viral -CXR: Cardiomegaly. Mild interstitial congestion and possible right basilar airspace disease -Influenza neg x2 Afebrile, no leukocytosis REcent hx of Proteus UTI/ infected stone , s/p 10 d abx (end date 02/15) -surveillance 03/11: u/a wbc 10-15 (pyuria improved from previosu u/a); ucx : PSA ( Asymptomatic ) CT: Bilateral renal calculi as detailed above. Overall stone burden increased since prior study of 08/29/2015. No evidence of obstructive uropathy -u/a wbc 20-30, nit +, leuk +3; ucx >100k P. 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 Hypertension. Chronic obstructive pulmonary disease. SSS s/p PPM in the left anterior chest wall HLD hx of R and L ankle fx Plan: - on Cefdinir 300mg bid ( AB Rx d# 4 / ) SP Levaquin 03/13 -s/p 2d IV Vancomycin, 1d Aztreonam 03/12 -s/p 4d PO keflex 02/15 -s/p 3d Ceftriaxone 02/11 -s/p d#4 IV Cefepime abx 02/09 -s/p 1 dose Alisson/Ceftriaxone 02/06 -s/p 10 d Ertapenem 01/28 -s/p 3d Cefepime 01/19 -s/p 1d Vanco 10 -s/p 1 d Meropenem 10/6 U leg Ag: P -f/u cx -Monitor CBC/BMP, temperatures Subjective Allergies: Coded Allergies: ERYTHROMYCIN BASE (Verified Allergy, Intermediate, 08/28/16) CODEINE (Verified Allergy, Unknown, 03/12/17) 03/12: PER PT, TOLERATED NORCO IN THE PAST MEPERIDINE (Verified Allergy, Unknown, 08/28/16) PENICILLINS (Verified Allergy, Unknown, 03/12/17) Tolerated Cefepime, Ceftriaxone, Keflex -02/2017 Subjective comfortable Objective Vital Signs Last 24 Hour Vital Signs Date Time Temp Pulse Resp B/P (MAP) Pulse Ox O2 Delivery O2 Flow Rate FiO2 03/14/17 08:00 96.3 87 19 110/77 100 Nasal Cannula 2.0 03/14/17 07:31 98 Nasal Cannula 2.0 28 03/14/17 07:31 Nasal Cannula 2.0 28 03/14/17 05:41 145/76 03/14/17 04:56 Nasal Cannula 2.0 03/14/17 04:00 98.1 88 18 145/76 97 Room Air 03/14/17 00:42 133/86 03/14/17 00:38 Nasal Cannula 2.0 03/14/17 00:00 98.2 89 20 133/86 100 03/13/17 23:23 98.1 03/13/17 22:24 95 03/13/17 21:11 98 Nasal Cannula 2.0 28 03/13/17 21:11 Nasal Cannula 2.0 28 03/13/17 20:00 98.1 50 20 138/72 97 03/13/17 20:00 Nasal Cannula 2.0 03/13/17 17:13 136/73 03/13/17 16:00 98.2 92 18 100 92 03/13/17 12:41 136/73 03/13/17 12:00 97.7 49 18 136/73 99 49 03/13/17 10:35 Nasal Cannula 2.0 28 03/13/17 10:33 99 Nasal Cannula 2.0 28 Height (Feet): 5 Height (Inches): 4.00 Weight (Pounds): 175 HEENT: anicteric Respiratory/Chest: no respiratory distress Cardiovascular: regular rhythm Abdomen: no organomegaly Microbiology Date/Time Source Procedure Growth Status 03/11/17 10:45 Blood Blood Culture - Preliminary NO GROWTH AFTER 48 HOURS Resulted 03/11/17 10:30 Blood Blood Culture - Preliminary NO GROWTH AFTER 48 HOURS Resulted 03/12/17 16:00 Nasal Nares Influenza Types A,B Antigen (NELLY) - Final Complete 03/11/17 12:00 Nasal Nares MRSA Culture - Final NO METHICILLIN RESISTANT STAPH AUREUS... Complete 03/11/17 10:45 Nasal Nares Influenza Types A,B Antigen (NELLY) - Final Complete 03/11/17 12:21 Urine,Clean Catch Urine Culture - Final Pseudomonas Aeruginosa Complete 03/11/17 12:00 Rectum VRE Culture - Final NO VANCOMYCIN RESISTANT ENTEROCOCCUS ... Complete Laboratory Tests Test 03/14/17 05:40 White Blood Count 6.6 K/UL (4.8-10.8) Red Blood Count 4.08 M/UL (4.20-5.40) L Hemoglobin 11.1 G/DL (12.0-16.0) L Hematocrit 34.2 % (37.0-47.0) L Mean Corpuscular Volume 84 FL (80-99) Mean Corpuscular Hemoglobin 27.1 PG (27.0-31.0) Mean Corpuscular Hemoglobin Concent 32.4 G/DL (32.0-36.0) Red Cell Distribution Width 13.8 % (11.6-14.8) Platelet Count 178 K/UL (150-450) Mean Platelet Volume 9.4 FL (6.5-10.1) Neutrophils (%) (Auto) 53.3 % (45.0-75.0) Lymphocytes (%) (Auto) 31.2 % (20.0-45.0) Monocytes (%) (Auto) 9.3 % (1.0-10.0) Eosinophils (%) (Auto) 4.4 % (0.0-3.0) H Basophils (%) (Auto) 1.7 % (0.0-2.0) Sodium Level 139 MMOL/L (136-145) Potassium Level 3.9 MMOL/L (3.5-5.1) Chloride Level 106 MMOL/L (98-107) Carbon Dioxide Level 28 MMOL/L (21-32) Anion Gap 5 mmol/L (5-15) Blood Urea Nitrogen 13 mg/dL (7-18) Creatinine 0.6 MG/DL (0.55-1.30) Estimat Glomerular Filtration Rate mL/min (>60) Glucose Level 104 MG/DL (74-106) Calcium Level 8.9 MG/DL (8.5-10.1) Current Medications Medications (Trade) Dose Ordered Sig/Joann Route PRN Reason Start Time Stop Time Status Last Admin Dose Admin Acetaminophen (Tylenol) 650 mg Q4H PRN ORAL T>100.5 F 03/11/17 12:00 04/10/17 11:59 Acetaminophen/ Hydrocodone Bitart ([place] 5/325) 1 tab Q6H PRN ORAL Severe Pain (Pain Scale 7-10) 03/12/17 13:15 03/19/17 13:14 03/13/17 22:24 Al Hydroxide/Mg Hydroxide (Mylanta II) 30 ml Q6H PRN ORAL dyspepsia 03/11/17 12:00 04/10/17 11:59 Albuterol/ Ipratropium (Albuterol/ Ipratropium) 3 ml Q4H PRN HHN Shortness of Breath 03/11/17 12:00 03/16/17 11:59 Atorvastatin Calcium (Lipitor) 10 mg BEDTIME ORAL 03/11/17 21:00 04/10/17 20:59 03/13/17 22:11 Cefdinir (Cefdinir) 300 mg Q12HR ORAL 03/13/17 13:00 03/20/17 12:59 03/14/17 09:13 Dextrose (Dextrose 50%) STAT PRN IV Hypoglycemia 03/11/17 12:00 04/10/17 11:59 Gabapentin (Neurontin) 100 mg Q8HR ORAL 03/11/17 14:00 04/10/17 13:59 03/14/17 05:41 Hydralazine HCl (Apresoline) 25 mg EVERY 6 HOURS ORAL 03/11/17 12:00 04/10/17 11:59 03/14/17 05:41 Insulin Aspart (NovoLOG) BEFORE MEALS AND HS SUBQ 03/11/17 16:30 04/10/17 16:29 03/13/17 22:14 Nitroglycerin (Ntg) 0.4 mg Q5M PRN SL Prn Chest Pain 03/11/17 12:00 04/10/17 11:59 Ondansetron HCl (Zofran) 4 mg Q6H PRN IVP Nausea & Vomiting 03/11/17 12:00 04/10/17 11:59 Polyethylene Glycol (Miralax) 17 gm DAILYPRN PRN ORAL Constipation 03/11/17 12:00 04/10/17 11:59 Rivaroxaban (Xarelto) 20 mg DAILY ORAL 03/12/17 09:00 04/11/17 08:59 03/14/17 09:14 Temazepam (Restoril) 15 mg HSPRN PRN ORAL Insomnia 03/11/17 21:00 03/18/17 20:59 Vitamin A/Vitamin D (A & D Oint) 1 applic EVERY 12 HOURS TOPIC 03/12/17 14:00 04/11/17 13:59 03/14/17 09:14 FAHAD SMITH M.D. Mar 14, 2017 10:05
[2017-03-14 12:00] VITALS: BP 128/73
[2017-03-14] MEDS ORDERED: CEFDINIR300 MG ORAL (12:37)
--- NOTE | 2017-03-14 12:43 | Internal Med Progress Note ---
Subjective Date of Service: Mar 14, 2017 Physician Name Chema Vázquez Attending Physician Zion Echevarria MD Current Medications Medications (Trade) Dose Ordered Sig/Joann Route PRN Reason Start Time Stop Time Status Last Admin Dose Admin Acetaminophen (Tylenol) 650 mg Q4H PRN ORAL T>100.5 F 03/11/17 12:00 04/10/17 11:59 Acetaminophen/ Hydrocodone Bitart ([place] 5/325) 1 tab Q6H PRN ORAL Severe Pain (Pain Scale 7-10) 03/12/17 13:15 03/19/17 13:14 03/13/17 22:24 Al Hydroxide/Mg Hydroxide (Mylanta II) 30 ml Q6H PRN ORAL dyspepsia 03/11/17 12:00 04/10/17 11:59 Albuterol/ Ipratropium (Albuterol/ Ipratropium) 3 ml Q4H PRN HHN Shortness of Breath 03/11/17 12:00 03/16/17 11:59 Atorvastatin Calcium (Lipitor) 10 mg BEDTIME ORAL 03/11/17 21:00 04/10/17 20:59 03/13/17 22:11 Cefdinir (Cefdinir) 300 mg Q12HR ORAL 03/13/17 13:00 03/20/17 12:59 03/14/17 09:13 Dextrose (Dextrose 50%) STAT PRN IV Hypoglycemia 03/11/17 12:00 04/10/17 11:59 Gabapentin (Neurontin) 100 mg Q8HR ORAL 03/11/17 14:00 04/10/17 13:59 03/14/17 05:41 Hydralazine HCl (Apresoline) 25 mg EVERY 6 HOURS ORAL 03/11/17 12:00 04/10/17 11:59 03/14/17 05:41 Insulin Aspart (NovoLOG) BEFORE MEALS AND HS SUBQ 03/11/17 16:30 04/10/17 16:29 03/13/17 22:14 Nitroglycerin (Ntg) 0.4 mg Q5M PRN SL Prn Chest Pain 03/11/17 12:00 04/10/17 11:59 Ondansetron HCl (Zofran) 4 mg Q6H PRN IVP Nausea & Vomiting 03/11/17 12:00 04/10/17 11:59 Polyethylene Glycol (Miralax) 17 gm DAILYPRN PRN ORAL Constipation 03/11/17 12:00 04/10/17 11:59 Rivaroxaban (Xarelto) 20 mg DAILY ORAL 03/12/17 09:00 04/11/17 08:59 03/14/17 09:14 Temazepam (Restoril) 15 mg HSPRN PRN ORAL Insomnia 03/11/17 21:00 03/18/17 20:59 Vitamin A/Vitamin D (A & D Oint) 1 applic EVERY 12 HOURS TOPIC 03/12/17 14:00 04/11/17 13:59 03/14/17 09:14 Allergies: Coded Allergies: ERYTHROMYCIN BASE (Verified Allergy, Intermediate, 08/28/16) CODEINE (Verified Allergy, Unknown, 03/12/17) 03/12: PER PT, TOLERATED NORCO IN THE PAST MEPERIDINE (Verified Allergy, Unknown, 08/28/16) PENICILLINS (Verified Allergy, Unknown, 03/12/17) Tolerated Cefepime, Ceftriaxone, Keflex -02/2017 ROS Limited/Unobtainable: No Constitutional: Reports: no symptoms HEENT: Reports: no symptoms Cardiovascular: Reports: no symptoms Respiratory: Reports: cough, shortness of breath Gastrointestinal/Abdominal: Reports: no symptoms Genitourinary: Reports: no symptoms Neurologic/Psychiatric: Reports: no symptoms Subjective 76 YO F admitted with cough. Now purulent bronchitis. Cover for Internal Med- Dr Echevarria. Objective Last Vital Signs Date Time Temp Pulse Resp B/P (MAP) Pulse Ox O2 Delivery O2 Flow Rate FiO2 03/14/17 08:00 96.3 87 19 110/77 100 Nasal Cannula 2.0 03/14/17 07:31 28 Laboratory Tests Test 03/14/17 05:40 White Blood Count 6.6 K/UL (4.8-10.8) Red Blood Count 4.08 M/UL (4.20-5.40) L Hemoglobin 11.1 G/DL (12.0-16.0) L Hematocrit 34.2 % (37.0-47.0) L Mean Corpuscular Volume 84 FL (80-99) Mean Corpuscular Hemoglobin 27.1 PG (27.0-31.0) Mean Corpuscular Hemoglobin Concent 32.4 G/DL (32.0-36.0) Red Cell Distribution Width 13.8 % (11.6-14.8) Platelet Count 178 K/UL (150-450) Mean Platelet Volume 9.4 FL (6.5-10.1) Neutrophils (%) (Auto) 53.3 % (45.0-75.0) Lymphocytes (%) (Auto) 31.2 % (20.0-45.0) Monocytes (%) (Auto) 9.3 % (1.0-10.0) Eosinophils (%) (Auto) 4.4 % (0.0-3.0) H Basophils (%) (Auto) 1.7 % (0.0-2.0) Sodium Level 139 MMOL/L (136-145) Potassium Level 3.9 MMOL/L (3.5-5.1) Chloride Level 106 MMOL/L (98-107) Carbon Dioxide Level 28 MMOL/L (21-32) Anion Gap 5 mmol/L (5-15) Blood Urea Nitrogen 13 mg/dL (7-18) Creatinine 0.6 MG/DL (0.55-1.30) Estimat Glomerular Filtration Rate mL/min (>60) Glucose Level 104 MG/DL (74-106) Calcium Level 8.9 MG/DL (8.5-10.1) Microbiology Date/Time Source Procedure Growth Status 03/12/17 16:00 Nasal Nares Influenza Types A,B Antigen (NELLY) - Final Complete Objective General Appearance: WD/WN, no apparent distress, alert EENT: PERRL/EOMI, normal ENT inspection Neck: non-tender, normal alignment, supple, normal inspection Cardiovascular: normal peripheral pulses, normal rate, regular rhythm, no gallop/murmur, no JVD Respiratory/Chest: chest wall non-tender, lungs clear, normal breath sounds, no respiratory distress, no accessory muscle use Abdomen: normal bowel sounds, non tender, soft, no organomegaly, no mass Extremities: normal range of motion Neurologic: storage engineer II-XII grossly normal, no motor/sensory deficits Skin: normal pigmentation, warm/dry Assessment/Plan Problem List: (1) URI (upper respiratory infection) Assessment & Plan: Influenza A & B neg (2) Purulent bronchitis Assessment & Plan: Continue oral cefdinir per ID (3) Sick sinus syndrome (4) HTN (hypertension) Assessment & Plan: Continue hydralazine. (5) Hypercholesterolemia Assessment & Plan: Continue lipitor (6) COPD (chronic obstructive pulmonary disease) (7) Diabetes mellitus, type II Assessment & Plan: Continue novolog sliding scale. (8) Pacemaker Status: stable Assessment/Plan Discharge home today. F/U Dr Echevarria 1 week CHEMA VÁZQUEZ Mar 14, 2017 12:43
[2017-03-14] MEDS: Norco 5mg/325mg tab ORAL PRN (12:47)
--- NOTE | 2017-03-14 14:10 | Pulmonology Progress Note ---
Assessment/Plan Assessment/Plan ASSESSMENT Acute bronchitis possible PNA HTN PAF Pacemaker ( recent interrogation in January revealed normal functioning) DM COPD PLAN OF CARE MS floor abx influenza screen negative UA negative, get sputum cx if able a/tussive prn CXR 03/13 -Apparent increased right lung interstitial and hazy airspace opacity and improving left-sided opacities. O2 HHN prn initial CXR with mild interstitial congestion, elevated pro BNP ECHO done in January 2017 with rEF 40-45% and RVSP of 32 continue Xarelto rate control , appears in SR Low dose diuretic On MARY, no BB due to intermittent bradycardia, hx of SSS, continue Hydralazine swallow eval bowel regimen clinically improving dc plan as per PMD case discussed and evaluated by supervising physician Subjective Allergies: Coded Allergies: ERYTHROMYCIN BASE (Verified Allergy, Intermediate, 08/28/16) CODEINE (Verified Allergy, Unknown, 03/12/17) 03/12: PER PT, TOLERATED NORCO IN THE PAST MEPERIDINE (Verified Allergy, Unknown, 08/28/16) PENICILLINS (Verified Allergy, Unknown, 03/12/17) Tolerated Cefepime, Ceftriaxone, Keflex -02/2017 Subjective afebrile, no leukocytosis occasional SOB, +cough dry, no wheezing, no hemoptysis, no chest pain, no palpitations pulse ox stable on RA Objective Last 24 Hour Vital Signs Date Time Temp Pulse Resp B/P (MAP) Pulse Ox O2 Delivery O2 Flow Rate FiO2 03/14/17 12:45 154/81 03/14/17 12:00 96.8 91 19 128/73 100 Room Air 03/14/17 08:00 96.3 87 19 110/77 100 Nasal Cannula 2.0 03/14/17 07:31 98 Nasal Cannula 2.0 28 03/14/17 07:31 Nasal Cannula 2.0 28 03/14/17 05:41 145/76 03/14/17 04:56 Nasal Cannula 2.0 03/14/17 04:00 98.1 88 18 145/76 97 Room Air 03/14/17 00:42 133/86 03/14/17 00:38 Nasal Cannula 2.0 03/14/17 00:00 98.2 89 20 133/86 100 03/13/17 23:23 98.1 03/13/17 22:24 95 03/13/17 21:11 98 Nasal Cannula 2.0 28 03/13/17 21:11 Nasal Cannula 2.0 28 03/13/17 20:00 98.1 50 20 138/72 97 03/13/17 20:00 Nasal Cannula 2.0 03/13/17 17:13 136/73 03/13/17 16:00 98.2 92 18 100 92 Objective General Appearance: WD/WN, no acute distress HEENT: normocephalic, atraumatic, anicteric, PERRL Respiratory/Chest: lungs clear, normal breath sounds, no respiratory distress, no accessory muscle use Cardiovascular: normal peripheral pulses, normal rate, regular rhythm, no JVD Abdomen: normal bowel sounds - abdomen soft, + mild epigastric tenderness , no rebound, no guarding Extremities: no edema, pedal pulses normal Neurologic/Psychiatric: flow floor attendant II-XII grossly normal, no motor/sensory deficits, alert, oriented x 3, responsive Musculoskeletal: normal muscle bulk Microbiology Date/Time Source Procedure Growth Status 03/12/17 16:00 Nasal Nares Influenza Types A,B Antigen (NELLY) - Final Complete Laboratory Tests 03/14/17 05:40: White Blood Count 6.6, Red Blood Count 4.08L, Hemoglobin 11.1L, Hematocrit 34.2L , Mean Corpuscular Volume 84, Mean Corpuscular Hemoglobin 27.1, Mean Corpuscular Hemoglobin Concent 32.4, Red Cell Distribution Width 13.8, Platelet Count 178, Mean Platelet Volume 9.4, Neutrophils (%) (Auto) 53.3, Lymphocytes (% ) (Auto) 31.2, Monocytes (%) (Auto) 9.3, Eosinophils (%) (Auto) 4.4H, Basophils (%) (Auto) 1.7, Sodium Level 139, Potassium Level 3.9, Chloride Level 106, Carbon Dioxide Level 28, Anion Gap 5, Blood Urea Nitrogen 13, Creatinine 0.6, Estimat Glomerular Filtration Rate , Glucose Level 104, Calcium Level 8.9 Current Medications Medications (Trade) Dose Ordered Sig/Joann Route PRN Reason Start Time Stop Time Status Last Admin Dose Admin Acetaminophen (Tylenol) 650 mg Q4H PRN ORAL T>100.5 F 03/11/17 12:00 04/10/17 11:59 Acetaminophen/ Hydrocodone Bitart ([place] 5/325) 1 tab Q6H PRN ORAL Severe Pain (Pain Scale 7-10) 03/12/17 13:15 03/19/17 13:14 03/14/17 12:47 Al Hydroxide/Mg Hydroxide (Mylanta II) 30 ml Q6H PRN ORAL dyspepsia 03/11/17 12:00 04/10/17 11:59 Albuterol/ Ipratropium (Albuterol/ Ipratropium) 3 ml Q4H PRN HHN Shortness of Breath 03/11/17 12:00 03/16/17 11:59 Atorvastatin Calcium (Lipitor) 10 mg BEDTIME ORAL 03/11/17 21:00 04/10/17 20:59 03/13/17 22:11 Cefdinir (Cefdinir) 300 mg Q12HR ORAL 03/13/17 13:00 03/20/17 12:59 03/14/17 09:13 Dextrose (Dextrose 50%) STAT PRN IV Hypoglycemia 03/11/17 12:00 04/10/17 11:59 Gabapentin (Neurontin) 100 mg Q8HR ORAL 03/11/17 14:00 04/10/17 13:59 03/14/17 05:41 Hydralazine HCl (Apresoline) 25 mg EVERY 6 HOURS ORAL 03/11/17 12:00 04/10/17 11:59 03/14/17 12:45 Insulin Aspart (NovoLOG) BEFORE MEALS AND HS SUBQ 03/11/17 16:30 04/10/17 16:29 03/14/17 12:36 Nitroglycerin (Ntg) 0.4 mg Q5M PRN SL Prn Chest Pain 03/11/17 12:00 04/10/17 11:59 Ondansetron HCl (Zofran) 4 mg Q6H PRN IVP Nausea & Vomiting 03/11/17 12:00 04/10/17 11:59 Polyethylene Glycol (Miralax) 17 gm DAILYPRN PRN ORAL Constipation 03/11/17 12:00 04/10/17 11:59 Rivaroxaban (Xarelto) 20 mg DAILY ORAL 03/12/17 09:00 04/11/17 08:59 03/14/17 09:14 Temazepam (Restoril) 15 mg HSPRN PRN ORAL Insomnia 03/11/17 21:00 03/18/17 20:59 Vitamin A/Vitamin D (A & D Oint) 1 applic EVERY 12 HOURS TOPIC 03/12/17 14:00 04/11/17 13:59 03/14/17 09:14 Satya ([facility])Margo NP Mar 14, 2017 14:10
[2017-03-14] MEDS ORDERED: Albuterol/Ipratropium 3ml neb HHN PRN (14:30)
[2017-03-14 16:19] VITALS: BP 143/77
--- NOTE | 2017-03-14 16:26 | Cardiology Report ---
APPROVED REPORT EKG Measurement Heart [id number] [place] 172P0 [id number] Sinus with demand ventricular pacing RBBB Occasional fusion beats Abnormal ECG
--- NOTE | 2017-03-14 18:30 | Cardiology Report ---
APPROVED REPORT EKG Measurement Heart [id number] Sinuis rhythm Possible Bi-V-paced rhythm Abnormal ECG
--- NOTE | 2017-03-17 11:11 | Discharge Summary ---
Discharge Summary Hospital Course Date of Admission Mar 11, 2017 at 10:45 Date of Discharge Mar 14, 2017 at 16:54 Admitting Diagnosis WEAKNESS, FLU HPI Amol Serrano is a 76 year old female who was admitted on Mar 11, 2017 at 10: 45 for Weakness, Flu Hospital Course dc summary #[id number] Discharge Medications New Medications: Cefdinir (Cefdinir) 300 Mg Capsule 300 MG ORAL Q12HR for 7 Days, CAP Continued Medications: Acetaminophen* (Acetaminophen 325MG Tablet*) 325 Mg Tablet 650 MG ORAL Q4H PRN for Mild Pain / TEMP>101 for 30 Days, TAB Atorvastatin Calcium* (Lipitor*) 10 Mg Tablet 10 MG ORAL BEDTIME, TAB Docusate Sodium* (Colace*) 100 Mg Capsule 100 MG ORAL EVERY 12 HOURS for 30 Days, CAP Furosemide* (Lasix*) 40 Mg Tablet 40 MG ORAL DAILY, #30 TAB Gabapentin* (Gabapentin*) 300 Mg Capsule 300 MG ORAL BID, CAP Hydralazine HCl (Hydralazine HCl) 10 Mg Tab 25 MG ORAL EVERY 6 HOURS for For High Blood Pressure, TAB Ibuprofen* (Motrin*) 600 Mg Tablet 200 MG ORAL Q4HR PRN for For Pain, #30 TAB Insulin Aspart (Novolog Flexpen) 100 Units/Ml Pen 0 UNITS SUBQ BEFORE MEALS AND HS for 30 Days, EA Memantine Hcl* (Namenda*) 5 Mg Tablet 5 MG ORAL BID, TAB Metformin Hcl* (Metformin Hcl*) 500 Mg Tablet 500 MG ORAL TWICE A DAY, TAB Montelukast Sodium* (Montelukast Sodium*) 10 Mg Tablet 10 MG ORAL DAILY, TAB Pantoprazole* (Protonix*) 40 Mg Tablet.dr 40 MG ORAL DAILY for 30 Days, TAB Potassium Chloride (Potassium Chloride) 20 Meq/15 Ml Liqd 10 MEQ ORAL DAILY, #30 ML Rivaroxaban (Xarelto*) 10 Mg Tablet 20 MG ORAL DAILY for 30 Days, TAB Spironolactone (Aldactone) 25 Mg Tablet 25 MG ORAL DAILY, #30 TAB Verapamil Hcl* (Calan Sr*) 240 Mg Tablet.er 250 MG ORAL DAILY, #30 CAP 0 Refills Discontinued Medications: Gabapentin* (Gabapentin*) 100 Mg Capsule 100 MG ORAL TID for 30 Days, CAP Unable to Obtain Medications (Unable To Obtain Meds) 1 Ea Ea Discharge Condition Upon Discharge: stable Discharge Disposition Patient was discharged to Home () Discharge Diagnoses: Satya (Mariselvicky),Margo MELENDEZ Mar 17, 2017 11:11
--- NOTE | 2017-03-18 01:30 | Discharge Summary 2 SIG ---
DATE OF ADMISSION: 03/11/2017 DATE OF DISCHARGE: 03/14/2017 REASON FOR ADMISSION: 76-year-old female with history of diabetes, hypertension, asthma, COPD, pacemaker, presented to emergency department for evaluation. She reported productive cough and feeling weak. No fevers. No chills. No chest pain. No shortness of breath. The patient was recently treated for urinary tract infection and was discharged home with IV antibiotics. Workup in the emergency room revealed stable vital signs. No leukocytosis. Electrolytes were stable. Lactic acid was within normal limits. Pro BNP elevated -3027. Urinalysis with pyuria and few bacteria, negative for nitrite. EKG revealed atrial pacing with some PVC. Chest x-ray revealed pacemaker, cardiomegaly, and possible right lower lobe infiltrate. The patient was admitted with diagnosis of possible pneumonia. HOSPITAL COURSE: The patient was admitted. Pulmonology and Infectious Diseases consuls were requested. Influenza screen test was negative. Urinalysis was negative. Unable to obtain sputum culture. Antitussive were provided as needed. Supplemental oxygen provided as needed to keep saturation above 92%. Pulmonary toilet was provided in form of hand held nebulizing treatment with bronchodilators along with chest physical therapy. Followup x-ray revealed increased right lung interstitial failure, airspace opacity and improved left-sided opacity. Echocardiogram was done on previous admission in January and revealed reduced ejection fraction of 40 to 45%. Right ventricular systolic pressure of 32. Xarelto was continued. Rate was controlled. The patient appeared to be in sinus rhythm. The patient was on low-dose diuretics, MARY inhibitor, but no beta-cinda due to the intermittent bradycardia and history of sick sinus syndrome. Hydralazine was continued. Blood pressure was stable with current medication regimen. The patient passed swallow evaluation, however, remained at risk for silent aspiration. Speech therapist recommended strict aspiration precaution and video swallow evaluation, which can be done as outpatient. Blood sugar was managed with sliding scale of insulin and was stable. Bowel regimen was instituted. The patient clinically improved. Pro BNP trending down from 3027 to 2164. Prior to discharge, pulse oximetry was stable on room air. Vital signs stable. The patient was stable for discharge home. FINAL DIAGNOSES: 1. Acute bronchitis, 2. Possible pneumonia. 3. Hypertension. 4. Paroxysmal atrial fibrillation. 5. Pacemaker (recent interrogation in January revealed normal functioning). 6. Diabetes. 7. Chronic obstructive pulmonary disease. DISCHARGE MEDICATIONS: See medication reconciliation list. The patient will be continued on seven additional days of cefdinir as recommended by Infectious Diseases. DISCHARGE INSTRUCTIONS: The patient was discharged home. Follow up with primary medical doctor next week. Zion Echevarria M.D. Margo RizzoJewish Memorial HospitalMartir Torres DR: Ermias JOB#: [id number] CC: [id number]
== END 2017-03-14 16:54 | disposition home or self-care (01) | DRG 202 ==
LOC: EDBD 10:11 → EMR 10:40 → 4E 10:45 → EDBEDREQ 11:10 → 4E 13:04
DX: J20.9 Acute bronchitis, unspecified (principal); L89.153 Pressure ulcer of sacral region, stage 3; J18.9 Pneumonia, unspecified organism; I48.0 Paroxysmal atrial fibrillation; J44.9 Chronic obstructive pulmonary disease, unspecified; E11.9 Type 2 diabetes mellitus without complications; I10 Essential (primary) hypertension; E78.00 Pure hypercholesterolemia, unspecified; Z95.0 Presence of cardiac pacemaker; Z79.4 Long term (current) use of insulin; Z79.01 Long term (current) use of anticoagulants; Z79.84 Long term (current) use of oral hypoglycemic drugs; Z88.6 Allergy status to analgesic agent; Z88.1 Allergy status to other antibiotic agents; Z88.0 Allergy status to penicillin; Z86.14 Personal history of Methicillin resistant Staphylococcus aureus infection; B19.20 Unspecified viral hepatitis C without hepatic coma; M10.9 Gout, unspecified
CPT/HCPCS: 36415; 71010; 80048; 80053; 80069; 81003; 82164; 82248; 82550; 82553; 82962; 83605; 83880; 84484; 85025; 86710; 87040; 87081; 87086; 87181; 92610; 93005; 94760; 99285; J1815

== ENCOUNTER 2017-03-20 19:13 | Inpatient (IN) | payer MEDICARE, MEDICAID ==
[~2017-03-20] VITALS: Ht 162.6 cm; Wt 94.8 kg
[2017-03-20] MEDS: NovoLOG Insulin Flexpen SUBQ SCH (02:43)
[~2017-03-20 19:13] MED LIST changes: +CEFDINIR300 MG ORAL
[2017-03-20 19:30] VITALS: BP 140/56
[2017-03-20 19:59] LABS: BASOPHILS % (AUTO) 1.2 % (0.0-2.0); EOSINOPHILS % (AUTO) 2.2 % (0.0-3.0); LYMPHOCYTES % (AUTO) 29.2 % (20.0-45.0); MEAN CORPUSCULAR HEMOGLOBIN 26.5 PG (27.0-31.0); MEAN CORPUSCULAR HGB CONC 31.9 G/DL (32.0-36.0); MEAN CORPUSCULAR VOLUME 83 FL (80-99); MEAN PLATELET VOLUME 8.3 FL (6.5-10.1); MONOCYTES % (AUTO) 7.7 % (1.0-10.0); NEUTROPHILS % (AUTO) 59.8 % (45.0-75.0); PLATELET COUNT 212 K/UL (150-450); RED BLOOD COUNT 4.61 M/UL (4.20-5.40); RED CELL DISTRIBUTION WIDTH 13.9 % (11.6-14.8); WHITE BLOOD COUNT 6.5 K/UL (4.8-10.8)
[2017-03-20 20:11] LABS: ANION GAP 11 mmol/L (5-15); CALCIUM 9.5 MG/DL (8.5-10.1); CARBON DIOXIDE 26 MMOL/L (21-32); CHLORIDE 107 MMOL/L (98-107); CREATININE 0.9 MG/DL (0.55-1.30); POTASSIUM 3.3 MMOL/L (3.5-5.1); SODIUM 144 MMOL/L (136-145)
[2017-03-20] MEDS ORDERED: Miralax 17gm pkt ORAL PRN (20:15)
[2017-03-20] MEDS ORDERED: Albuterol/Ipratropium 3ml neb HHN PRN (20:15)
[2017-03-20 20:25] LABS: ALANINE AMINOTRANSFERASE 19 U/L (12-78); ALBUMIN/GLOBULIN RATIO 0.8 (1.0-2.7); ASPARTATE AMINO TRANSFERASE 21 U/L (15-37); CKMB 1.3 NG/ML (0.0-3.6); TOTAL PROTEIN 8.1 G/DL (6.4-8.2)
[2017-03-20 20:27] LABS: BILIRUBIN,DIRECT 0.4 MG/DL (0.0-0.3)
--- NOTE | 2017-03-20 21:45 | Emergency Room Report ---
History of Present Illness General Chief Complaint: General Complaint Source: Patient, EMS Present Illness HPI Patient is a 76-year-old female who presented after increased difficulty with breathing. Patient prior history of pacemaker placement and congestive heart failure. She had recently been hospitalized for a urinary tract infection. Patient had receiving home health. The patient had this during the daytime apparently she had been the unable to care for herself during hours were she was not seen by home health. Per EMS patient was found lying in her urine. She had not been vomiting. The patient had recently been off was by . Allergies: Coded Allergies: ERYTHROMYCIN BASE (Verified Allergy, Intermediate, 08/28/16) CODEINE (Verified Allergy, Unknown, 03/12/17) 03/12: PER PT, TOLERATED NORCO IN THE PAST MEPERIDINE (Verified Allergy, Unknown, 08/28/16) PENICILLINS (Verified Allergy, Unknown, 03/12/17) Tolerated Cefepime, Ceftriaxone, Keflex -02/2017 Patient History Past Medical History: see triage record Reviewed Nursing Documentation: PMH: Agreed, PSxH: Agreed Nursing Documentation-PMH Past Medical History: No History, Except For Hx Cardiac Problems: No - HTN,DM,PACER Hx Hypertension: Yes Hx Pacemaker: Yes - left chest Hx Asthma: Yes Hx COPD: Yes Hx Diabetes: Yes Hx Cancer: No Hx Gastrointestinal Problems: Yes Hx Neurological Problems: Yes Hx Dementia: Yes Hx Weakness: Yes Review of Systems All Other Systems: negative except mentioned in HPI Physical Exam Vital Signs Date Time Temp Pulse Resp B/P (MAP) Pulse Ox O2 Delivery O2 Flow Rate FiO2 03/20/17 19:04 98.1 96 20 185/111 95 Room Air Sp02 EP Interpretation: reviewed, normal General Appearance: normal inspection, well appearing, no apparent distress, alert, non-toxic, Chronically Ill Head: atraumatic ENT: normal ENT inspection, hearing grossly normal, normal voice Neck: normal inspection, full range of motion, supple, no bony tend Respiratory: normal inspection, lungs clear, normal breath sounds, no respiratory distress, no retraction, no wheezing Cardiovascular #1: regular rate, rhythm, no edema Gastrointestinal: normal inspection, normal bowel sounds, non tender, soft, no guarding, no hernia Genitourinary: no CVA tenderness Musculoskeletal: normal inspection, back normal, normal range of motion Neurologic: normal inspection, alert, oriented x3, responsive, web services architect III-XII nml as tested, speech normal Psychiatric: normal inspection, judgement/insight normal, mood/affect normal Skin: normal inspection, normal color, no rash Medical Decision Making Diagnostic Impression: Primary Impression: CHF (congestive heart failure) Additional Impressions: Generalized weakness Encephalopathy acute Hypokalemia ER Course Patient presented for generalized weakness. Differential diagnosis included was not limited to anemia, urinary tract infection, electrolyte abnormality, hypothyroidism, myocardial infarction, myasthenia gravis, dehydration, among others. Because of complexity of patient's case laboratory testing and imaging studies were ordered. The EKG interpreted me showed paced rhythm with a rate of 104. Dr. Zion Echevarria was contacted for inpatient management Labs Test 03/20/17 19:30 White Blood Count 6.5 K/UL (4.8-10.8) Red Blood Count 4.61 M/UL (4.20-5.40) Hemoglobin 12.2 G/DL (12.0-16.0) Hematocrit 38.3 % (37.0-47.0) Mean Corpuscular Volume 83 FL (80-99) Mean Corpuscular Hemoglobin 26.5 PG (27.0-31.0) Mean Corpuscular Hemoglobin Concent 31.9 G/DL (32.0-36.0) Red Cell Distribution Width 13.9 % (11.6-14.8) Platelet Count 212 K/UL (150-450) Mean Platelet Volume 8.3 FL (6.5-10.1) Neutrophils (%) (Auto) 59.8 % (45.0-75.0) Lymphocytes (%) (Auto) 29.2 % (20.0-45.0) Monocytes (%) (Auto) 7.7 % (1.0-10.0) Eosinophils (%) (Auto) 2.2 % (0.0-3.0) Basophils (%) (Auto) 1.2 % (0.0-2.0) Sodium Level 144 MMOL/L (136-145) Potassium Level 3.3 MMOL/L (3.5-5.1) Chloride Level 107 MMOL/L (98-107) Carbon Dioxide Level 26 MMOL/L (21-32) Anion Gap 11 mmol/L (5-15) Blood Urea Nitrogen 14 mg/dL (7-18) Creatinine 0.9 MG/DL (0.55-1.30) Estimat Glomerular Filtration Rate mL/min (>60) Glucose Level 164 MG/DL (74-106) Lactic Acid Level 1.70 mmol/L (0.66-2.22) Calcium Level 9.5 MG/DL (8.5-10.1) Total Bilirubin 1.2 MG/DL (0.2-1.0) Direct Bilirubin 0.4 MG/DL (0.0-0.3) Aspartate Amino Transf (AST/SGOT) 21 U/L (15-37) Alanine Aminotransferase (ALT/SGPT) 19 U/L (12-78) Alkaline Phosphatase 99 U/L (46-116) Total Creatine Kinase 27 U/L (26-308) Creatine Kinase MB 1.3 NG/ML (0.0-3.6) Creatine Kinase MB Relative Index 4.8 Troponin I 0.006 ng/mL (0.000-0.056) Total Protein 8.1 G/DL (6.4-8.2) Albumin 3.5 G/DL (3.4-5.0) Globulin 4.6 g/dL Albumin/Globulin Ratio 0.8 (1.0-2.7) EKG Diagnostic Results Rate: tachycardiac Rhythm: other - paced rhythm ST Segments: no acute changes Rhythm Strip Diag. Results EP Interpretation: yes Rhythm: other - paced 81 Last Vital Signs Date Time Temp Pulse Resp B/P (MAP) Pulse Ox O2 Delivery O2 Flow Rate FiO2 03/20/17 19:04 98.1 96 20 185/111 95 Room Air Status: unchanged Disposition: ADMITTED INPATIENT Condition: Serious Referrals: Zion Echevarria MD (PCP) Aubrey Mccracken Mar 20, 2017 21:45
[2017-03-20 23:54] VITALS: BP 142/57
[2017-03-21] MEDS ORDERED: HydrALAZINE 10mg Tab ORAL SCH
[2017-03-21 00:30] VITALS: BP 138/59
[2017-03-21] MEDS: HydrALAZINE 25mg tab ORAL SCH ×3 (06:00→18:06)
[2017-03-21] MEDS: NovoLOG Insulin Flexpen SUBQ SCH ×4 (06:30→21:23)
[2017-03-21 07:55] LABS: ANION GAP 9 mmol/L (5-15); CALCIUM 9.2 MG/DL (8.5-10.1); CARBON DIOXIDE 29 MMOL/L (21-32); CHLORIDE 108 MMOL/L (98-107); CREATININE 0.7 MG/DL (0.55-1.30); POTASSIUM 3.3 MMOL/L (3.5-5.1); SODIUM 146 MMOL/L (136-145)
[2017-03-21 08:00] VITALS: BP 110/52
[2017-03-21] MEDS: Verapamil SR 240mg tab ORAL SCH ×2 (09:00→09:30)
[2017-03-21] MEDS: Spironolactone 25mg tab ORAL SCH ×2 (09:00→09:30)
[2017-03-21] MEDS: Montelukast 10mg tablet ORAL SCH ×2 (09:00→09:30)
[2017-03-21] MEDS: Memantine 5 MG TAB ORAL SCH ×3 (09:00→18:06)
--- NOTE | 2017-03-21 09:54 | Diagnostic Imaging Report ---
Indication: Shortness of breath Technique: XRAY CHEST 1 V Comparison: 03/13/17 Findings: Left chest pacemaker is present. Cardiac silhouette is prominent. There is atelectasis of the left midlung. Interstitial edema/infiltrates are noted. Small bilateral pleural effusions are not excluded. Osseous structures are stable. Impression: Left midlung atelectasis. Pulmonary edema versus infiltrates. Small bilateral pleural effusions not excluded.
[2017-03-21 12:00] VITALS: BP 97/71
--- NOTE | 2017-03-21 15:02 | Consultation ---
History of Present Illness General Date patient seen: Mar 21, 2017 Chief Complaint: General Complaint Present Illness HPI 76-year-old female with hx of DM, COPD, CHF who presented after increased difficulty with breathing. She had recently been hospitalized for a urinary tract infection. Per EMS patient was found lying in her urine. She had not been vomiting. She is admitted to telemetry for increasing sob and inability to take care of herself. Her SBP was 185 in ER and she received IV hydratlazine and responded fairly well. Allergies: Coded Allergies: ERYTHROMYCIN BASE (Verified Allergy, Intermediate, 08/28/16) CODEINE (Verified Allergy, Unknown, 03/12/17) 03/12: PER PT, TOLERATED NORCO IN THE PAST MEPERIDINE (Verified Allergy, Unknown, 08/28/16) PENICILLINS (Verified Allergy, Unknown, 03/12/17) Tolerated Cefepime, Ceftriaxone, Keflex -02/2017 Medication History Scheduled Atorvastatin Calcium* (Lipitor*), 10 MG ORAL BEDTIME, (Reported) Cefdinir (Cefdinir), 300 MG ORAL Q12HR Docusate Sodium* (Colace*), 100 MG ORAL EVERY 12 HOURS Furosemide* (Lasix*), 40 MG ORAL DAILY Gabapentin* (Gabapentin*), 300 MG ORAL BID, (Reported) Hydralazine HCl (Hydralazine HCl), 25 MG ORAL EVERY 6 HOURS, (Reported) Insulin Aspart (Novolog Flexpen), 0 UNITS SUBQ BEFORE MEALS AND HS Memantine Hcl* (Namenda*), 5 MG ORAL BID, (Reported) Metformin Hcl* (Metformin Hcl*), 500 MG ORAL TWICE A DAY, (Reported) Montelukast Sodium* (Montelukast Sodium*), 10 MG ORAL DAILY, (Reported) Pantoprazole* (Protonix*), 40 MG ORAL DAILY Potassium Chloride (Potassium Chloride), 10 MEQ ORAL DAILY Rivaroxaban (Xarelto*), 20 MG ORAL DAILY Spironolactone (Aldactone), 25 MG ORAL DAILY Verapamil Hcl* (Calan Sr*), 250 MG ORAL DAILY, (Reported) Scheduled PRN Acetaminophen* (Acetaminophen 325MG Tablet*), 650 MG ORAL Q4H PRN for Mild Pain / TEMP>101 Ibuprofen* (Motrin*), 200 MG ORAL Q4HR PRN for For Pain, (Reported) Discontinued Medications Gabapentin* (Gabapentin*), 100 MG ORAL TID Discontinued Reason: Medication dose changed Unable to Obtain Medications (Unable To Obtain Meds), (Reported) Discontinued Reason: MD discontinued med Patient History Healthcare decision maker Resuscitation status Full Code Advanced Directive on File Past Medical/Surgical History Past Medical/Surgical History: (1) Pacemaker (2) CHF (congestive heart failure) (3) Hepatitis C (4) Gout (5) HTN (hypertension) (6) COPD (chronic obstructive pulmonary disease) Review of Systems All Other Systems: negative except mentioned in HPI Physical Exam General Appearance: WD/WN, no apparent distress Lines, tubes and drains: peripheral HEENT: normocephalic, atraumatic Neck: non-tender, normal alignment Respiratory/Chest: chest wall non-tender, lungs clear Breasts: no masses Cardiovascular/Chest: normal peripheral pulses, normal rate Abdomen: normal bowel sounds, non tender, no organomegaly Genitourinary/Rectal: normal genital exam Extremities: normal range of motion, non-tender Skin Exam: normal pigmentation Neurologic: information technology associate II-XII grossly normal Lymphatic: anterior cervical Last 24 Hour Vital Signs Date Time Temp Pulse Resp B/P (MAP) Pulse Ox O2 Delivery O2 Flow Rate FiO2 03/21/17 12:00 87 03/21/17 12:00 97.7 87 18 97/71 97 03/21/17 12:00 97/71 03/21/17 08:00 74 03/21/17 08:00 98.1 79 17 110/52 100 03/21/17 07:58 78 18 Nasal Cannula 2.0 28 03/21/17 06:00 138/59 03/21/17 04:00 94 03/21/17 01:03 89 03/21/17 00:30 98.4 92 21 138/59 98 03/21/17 00:15 74 17 142/57 100 Nasal Cannula 2.0 03/20/17 23:54 98.1 74 17 142/57 100 Nasal Cannula 2.0 03/20/17 19:30 98.1 86 22 140/56 98 Room Air 03/20/17 19:04 98.1 96 20 185/111 95 Room Air Intake and Output 03/21/17 03/22/17 19:00 07:00 Intake Total 75 ml Balance 75 ml Intake Oral 75 ml # Voids 1 Laboratory Tests Test 03/20/17 19:30 03/21/17 06:10 White Blood Count 6.5 K/UL (4.8-10.8) Red Blood Count 4.61 M/UL (4.20-5.40) Hemoglobin 12.2 G/DL (12.0-16.0) Hematocrit 38.3 % (37.0-47.0) Mean Corpuscular Volume 83 FL (80-99) Mean Corpuscular Hemoglobin 26.5 PG (27.0-31.0) L Mean Corpuscular Hemoglobin Concent 31.9 G/DL (32.0-36.0) L Red Cell Distribution Width 13.9 % (11.6-14.8) Platelet Count 212 K/UL (150-450) Mean Platelet Volume 8.3 FL (6.5-10.1) Neutrophils (%) (Auto) 59.8 % (45.0-75.0) Lymphocytes (%) (Auto) 29.2 % (20.0-45.0) Monocytes (%) (Auto) 7.7 % (1.0-10.0) Eosinophils (%) (Auto) 2.2 % (0.0-3.0) Basophils (%) (Auto) 1.2 % (0.0-2.0) Sodium Level 144 MMOL/L (136-145) 146 MMOL/L (136-145) H Potassium Level 3.3 MMOL/L (3.5-5.1) L 3.3 MMOL/L (3.5-5.1) L Chloride Level 107 MMOL/L (98-107) 108 MMOL/L (98-107) H Carbon Dioxide Level 26 MMOL/L (21-32) 29 MMOL/L (21-32) Anion Gap 11 mmol/L (5-15) 9 mmol/L (5-15) Blood Urea Nitrogen 14 mg/dL (7-18) 13 mg/dL (7-18) Creatinine 0.9 MG/DL (0.55-1.30) 0.7 MG/DL (0.55-1.30) Estimat Glomerular Filtration Rate mL/min (>60) mL/min (>60) Glucose Level 164 MG/DL (74-106) H 108 MG/DL (74-106) H Lactic Acid Level 1.70 mmol/L (0.66-2.22) Calcium Level 9.5 MG/DL (8.5-10.1) 9.2 MG/DL (8.5-10.1) Total Bilirubin 1.2 MG/DL (0.2-1.0) H Direct Bilirubin 0.4 MG/DL (0.0-0.3) H Aspartate Amino Transf (AST/SGOT) 21 U/L (15-37) Alanine Aminotransferase (ALT/SGPT) 19 U/L (12-78) Alkaline Phosphatase 99 U/L (46-116) Total Creatine Kinase 27 U/L (26-308) Creatine Kinase MB 1.3 NG/ML (0.0-3.6) Creatine Kinase MB Relative Index 4.8 Troponin I 0.006 ng/mL (0.000-0.056) Total Protein 8.1 G/DL (6.4-8.2) Albumin 3.5 G/DL (3.4-5.0) Globulin 4.6 g/dL Albumin/Globulin Ratio 0.8 (1.0-2.7) L Height (Feet): 5 Height (Inches): 4.00 Weight (Pounds): 194 Medications Current Medications Medications (Trade) Dose Ordered Sig/Joann Route PRN Reason Start Time Stop Time Status Last Admin Dose Admin Acetaminophen (Tylenol) 650 mg Q4H PRN ORAL Fever 03/20/17 20:15 04/19/17 20:14 Albuterol/ Ipratropium (Albuterol/ Ipratropium) 3 ml EVERY 4 HOURS PRN HHN Shortness of Breath 03/20/17 20:15 03/25/17 20:14 Atorvastatin Calcium (Lipitor) 10 mg BEDTIME ORAL 03/20/17 21:00 04/19/17 20:59 Dextrose (Dextrose 50%) STAT PRN IV Hypoglycemia 03/20/17 20:15 04/19/17 20:14 Furosemide (Lasix) 40 mg EVERY 8 HOURS IV 03/20/17 22:00 04/19/17 21:59 03/21/17 07:45 Gabapentin (Neurontin) 300 mg BID ORAL 03/21/17 09:00 04/20/17 08:59 Hydralazine HCl (Apresoline) 25 mg EVERY 6 HOURS ORAL 03/21/17 06:00 04/20/17 05:59 03/21/17 06:00 Insulin Aspart (NovoLOG) BEFORE MEALS AND HS SUBQ 03/20/17 21:00 04/19/17 20:59 03/21/17 12:34 Memantine (Namenda) 5 mg BID ORAL 03/21/17 09:00 04/20/17 08:59 Montelukast Sodium (Singulair) 10 mg DAILY ORAL 03/21/17 09:00 04/20/17 08:59 Ondansetron HCl (Zofran) 4 mg Q6H PRN IVP Nausea & Vomiting 03/20/17 20:15 04/19/17 20:14 Pantoprazole (Protonix) 40 mg DAILY ORAL 03/21/17 09:00 04/20/17 08:59 Polyethylene Glycol (Miralax) 17 gm DAILYPRN PRN ORAL Constipation 03/20/17 20:15 04/19/17 20:14 Rivaroxaban (Xarelto) 20 mg QPM ORAL 03/21/17 16:30 04/20/17 16:29 Spironolactone (Aldactone) 25 mg DAILY ORAL 03/21/17 09:00 04/20/17 08:59 Temazepam (Restoril) 15 mg HSPRN PRN ORAL Insomnia 03/20/17 20:15 03/27/17 20:14 Verapamil HCl (Calan SR) 240 mg DAILY ORAL 03/21/17 09:00 04/20/17 08:59 Assessment/Plan Problem List: (1) CHF (congestive heart failure) ICD Codes: I50.9 - Heart failure, unspecified SNOMED: 85427062 (2) COPD (chronic obstructive pulmonary disease) ICD Codes: J44.9 - Chronic obstructive pulmonary disease, unspecified SNOMED: 15549365 (3) Diabetes mellitus, type II ICD Codes: E11.9 - Type 2 diabetes mellitus without complications SNOMED: 68028324 (4) Generalized weakness ICD Codes: R53.1 - Weakness SNOMED: 33058746 (5) Pacemaker ICD Codes: Z95.0 - Presence of cardiac pacemaker SNOMED: 365770973 (6) Hepatitis C ICD Codes: B19.20 - Unspecified viral hepatitis C without hepatic coma SNOMED: 02940684 (7) HTN (hypertension) ICD Codes: I10 - Essential (primary) hypertension SNOMED: 78114404 Assessment/Plan respiratory treatment diuretics check electrolytes cardio evaluation f/u labs f/u bnp watch bun/creatine JONH RODRIGUEZ Mar 21, 2017 15:02
--- NOTE | 2017-03-21 15:20 | Consultation ---
Consult Note Consult Note Card for Dr. Fitzpatrick Full note dictated YADIRA HSIEH Mar 21, 2017 15:20
--- NOTE | 2017-03-21 15:56 | Cardiac Electrophysiology PN ---
Subjective Subjective EP consult dictated. Well known to me from multiple prior visits including last month. PAF BS PAcer CHF HTN Dictated [id number] Objective Last 24 Hour Vital Signs Date Time Temp Pulse Resp B/P (MAP) Pulse Ox O2 Delivery O2 Flow Rate FiO2 03/21/17 12:00 87 03/21/17 12:00 97.7 87 18 97/71 97 03/21/17 12:00 97/71 03/21/17 08:00 74 03/21/17 08:00 98.1 79 17 110/52 100 03/21/17 07:58 78 18 Nasal Cannula 2.0 28 03/21/17 06:00 138/59 03/21/17 04:00 94 03/21/17 01:03 89 03/21/17 00:30 98.4 92 21 138/59 98 03/21/17 00:15 74 17 142/57 100 Nasal Cannula 2.0 03/20/17 23:54 98.1 74 17 142/57 100 Nasal Cannula 2.0 03/20/17 19:30 98.1 86 22 140/56 98 Room Air 03/20/17 19:04 98.1 96 20 185/111 95 Room Air Intake and Output 03/21/17 03/22/17 19:00 07:00 Intake Total 75 ml Balance 75 ml Intake Oral 75 ml # Voids 1 Laboratory Tests Test 03/20/17 19:30 03/21/17 06:10 White Blood Count 6.5 K/UL (4.8-10.8) Red Blood Count 4.61 M/UL (4.20-5.40) Hemoglobin 12.2 G/DL (12.0-16.0) Hematocrit 38.3 % (37.0-47.0) Mean Corpuscular Volume 83 FL (80-99) Mean Corpuscular Hemoglobin 26.5 PG (27.0-31.0) L Mean Corpuscular Hemoglobin Concent 31.9 G/DL (32.0-36.0) L Red Cell Distribution Width 13.9 % (11.6-14.8) Platelet Count 212 K/UL (150-450) Mean Platelet Volume 8.3 FL (6.5-10.1) Neutrophils (%) (Auto) 59.8 % (45.0-75.0) Lymphocytes (%) (Auto) 29.2 % (20.0-45.0) Monocytes (%) (Auto) 7.7 % (1.0-10.0) Eosinophils (%) (Auto) 2.2 % (0.0-3.0) Basophils (%) (Auto) 1.2 % (0.0-2.0) Sodium Level 144 MMOL/L (136-145) 146 MMOL/L (136-145) H Potassium Level 3.3 MMOL/L (3.5-5.1) L 3.3 MMOL/L (3.5-5.1) L Chloride Level 107 MMOL/L (98-107) 108 MMOL/L (98-107) H Carbon Dioxide Level 26 MMOL/L (21-32) 29 MMOL/L (21-32) Anion Gap 11 mmol/L (5-15) 9 mmol/L (5-15) Blood Urea Nitrogen 14 mg/dL (7-18) 13 mg/dL (7-18) Creatinine 0.9 MG/DL (0.55-1.30) 0.7 MG/DL (0.55-1.30) Estimat Glomerular Filtration Rate mL/min (>60) mL/min (>60) Glucose Level 164 MG/DL (74-106) H 108 MG/DL (74-106) H Lactic Acid Level 1.70 mmol/L (0.66-2.22) Calcium Level 9.5 MG/DL (8.5-10.1) 9.2 MG/DL (8.5-10.1) Total Bilirubin 1.2 MG/DL (0.2-1.0) H Direct Bilirubin 0.4 MG/DL (0.0-0.3) H Aspartate Amino Transf (AST/SGOT) 21 U/L (15-37) Alanine Aminotransferase (ALT/SGPT) 19 U/L (12-78) Alkaline Phosphatase 99 U/L (46-116) Total Creatine Kinase 27 U/L (26-308) Creatine Kinase MB 1.3 NG/ML (0.0-3.6) Creatine Kinase MB Relative Index 4.8 Troponin I 0.006 ng/mL (0.000-0.056) Total Protein 8.1 G/DL (6.4-8.2) Albumin 3.5 G/DL (3.4-5.0) Globulin 4.6 g/dL Albumin/Globulin Ratio 0.8 (1.0-2.7) JAMAAL GUSMAN Mar 21, 2017 15:56
[2017-03-21 16:00] VITALS: BP 114/72
[2017-03-21] MEDS ORDERED: Xarelto 10mg tab ORAL SCH (16:30)
--- NOTE | 2017-03-21 19:35 | History & Physical ---
History and Physical History & Physicial Labs Test 03/20/17 19:30 03/21/17 06:10 White Blood Count 6.5 K/UL (4.8-10.8) Red Blood Count 4.61 M/UL (4.20-5.40) Hemoglobin 12.2 G/DL (12.0-16.0) Hematocrit 38.3 % (37.0-47.0) Mean Corpuscular Volume 83 FL (80-99) Mean Corpuscular Hemoglobin 26.5 PG (27.0-31.0) Mean Corpuscular Hemoglobin Concent 31.9 G/DL (32.0-36.0) Red Cell Distribution Width 13.9 % (11.6-14.8) Platelet Count 212 K/UL (150-450) Mean Platelet Volume 8.3 FL (6.5-10.1) Neutrophils (%) (Auto) 59.8 % (45.0-75.0) Lymphocytes (%) (Auto) 29.2 % (20.0-45.0) Monocytes (%) (Auto) 7.7 % (1.0-10.0) Eosinophils (%) (Auto) 2.2 % (0.0-3.0) Basophils (%) (Auto) 1.2 % (0.0-2.0) Sodium Level 144 MMOL/L (136-145) 146 MMOL/L (136-145) Potassium Level 3.3 MMOL/L (3.5-5.1) 3.3 MMOL/L (3.5-5.1) Chloride Level 107 MMOL/L (98-107) 108 MMOL/L (98-107) Carbon Dioxide Level 26 MMOL/L (21-32) 29 MMOL/L (21-32) Anion Gap 11 mmol/L (5-15) 9 mmol/L (5-15) Blood Urea Nitrogen 14 mg/dL (7-18) 13 mg/dL (7-18) Creatinine 0.9 MG/DL (0.55-1.30) 0.7 MG/DL (0.55-1.30) Estimat Glomerular Filtration Rate mL/min (>60) mL/min (>60) Glucose Level 164 MG/DL (74-106) 108 MG/DL (74-106) Lactic Acid Level 1.70 mmol/L (0.66-2.22) Calcium Level 9.5 MG/DL (8.5-10.1) 9.2 MG/DL (8.5-10.1) Total Bilirubin 1.2 MG/DL (0.2-1.0) Direct Bilirubin 0.4 MG/DL (0.0-0.3) Aspartate Amino Transf (AST/SGOT) 21 U/L (15-37) Alanine Aminotransferase (ALT/SGPT) 19 U/L (12-78) Alkaline Phosphatase 99 U/L (46-116) Total Creatine Kinase 27 U/L (26-308) Creatine Kinase MB 1.3 NG/ML (0.0-3.6) Creatine Kinase MB Relative Index 4.8 Troponin I 0.006 ng/mL (0.000-0.056) Total Protein 8.1 G/DL (6.4-8.2) Albumin 3.5 G/DL (3.4-5.0) Globulin 4.6 g/dL Albumin/Globulin Ratio 0.8 (1.0-2.7) Last 24 Hour Vital Signs Date Time Temp Pulse Resp B/P (MAP) Pulse Ox O2 Delivery O2 Flow Rate FiO2 03/21/17 18:06 114/72 03/21/17 16:00 87 03/21/17 16:00 98.8 84 18 114/72 99 03/21/17 12:00 87 03/21/17 12:00 97.7 87 18 97/71 97 03/21/17 12:00 97/71 03/21/17 08:00 74 03/21/17 08:00 98.1 79 17 110/52 100 03/21/17 07:58 78 18 Nasal Cannula 2.0 28 03/21/17 06:00 138/59 03/21/17 04:00 94 03/21/17 01:03 89 03/21/17 00:30 98.4 92 21 138/59 98 03/21/17 00:15 74 17 142/57 100 Nasal Cannula 2.0 03/20/17 23:54 98.1 74 17 142/57 100 Nasal Cannula 2.0 The patient was seen and examined at bedside and all new and available data was reviewed in the patients chart. I F/U Labs -PT mobility F/U with Dr. Telles Recommendation (Patient was seen earlier today. Signature timestamp does not reflect patient encounter time) Zion Almeida MD, MD Mar 21, 2017 19:35
[2017-03-21 20:00] VITALS: BP 114/75
[2017-03-21 21:14] LABS: APPEARANCE,URINE CLEAR; KETONES,URINE NEGATIVE (NEGATIVE); LEUKOCYTE ESTERASE ,URINE 2+ (NEGATIVE); NITRITE,URINE NEGATIVE (NEGATIVE); PH,URINE 5 (4.5-8.0); PROTEIN,URINE NEGATIVE (NEGATIVE); UROBILINOGEN,URINE 4 MG/DL (0.0-1.0)
--- NOTE | 2017-03-21 21:15 | Consultation ---
DATE OF CONSULTATION: 03/21/2017 CARDIOLOGY CONSULTATION This is a Cardiology consult, coverage for Dr. Fitzpatrick. REASON FOR CONSULTATION: Shortness of breath. HISTORY OF PRESENT ILLNESS: The patient is a 76-year-old woman with history of hypertension, type 2 diabetes, cardiomyopathy, and COPD, who was admitted with dyspnea. She had been discharged earlier this month after hospitalization with acute bronchitis and possible pneumonia. She is a fair historian. She presents with complaints of shortness of breath over the past one to two weeks. Symptoms occur intermittently with mild activity or even speaking. She has no chest pain, nausea, vomiting, abdominal pain, fever, chills, or sweats. Per the emergency room notes, she was found per EMS lying in her urine. She was brought to the emergency room where she was noted to be hypertensive with blood pressure 185/111, pulse 96, sinus rhythm. She was admitted for further treatment. PAST CARDIAC HISTORY: Significant for echocardiogram during her last admission with EF in the 40s, history of permanent dual-chamber pacemaker placement about seven years ago in [place]. PAST MEDICAL HISTORY: As noted above. The patient also reports history of DVT several years ago. She does not recall treatment she received. MEDICATIONS: Xarelto 20 mg daily, gabapentin 300 mg b.i.d., Namenda 5 mg b.i.d., Singulair 10 mg daily, Protonix 40 mg daily, Aldactone 25 mg daily, verapamil 240 mg daily, hydralazine 25 mg q.6 h., Lasix 40 mg IV every eight hours, atorvastatin 10 mg nightly, insulin sliding scale, Restoril 15 mg nightly p.r.n., Zofran p.r.n., and DuoNeb q.4 h. p.r.n. ALLERGIES: Penicillin caused swelling. Codeine and Demerol caused a rash. SOCIAL HISTORY: The patient is a nonsmoker. Does not drink alcohol and has no history of drug use. PHYSICAL EXAMINATION: VITAL SIGNS: Blood pressure is 110/52, pulse 74 and regular, respirations 20, afebrile, pulse oximeter 100% on 2 liters nasal cannula. GENERAL: Alert, obese, woman, in no acute distress. HEENT: Normocephalic and atraumatic. Pupils are equal, round, and reactive to light. Sclerae anicteric. Oral mucosa moist. NECK: Supple. No jugular venous distention. No adenopathy. No thyromegaly. Carotid pulses 2+ bilaterally without bruits. LUNGS: Clear to auscultation bilaterally (fair cooperation with deep inspiratory effort). HEART: Regular S1 and S2. No murmurs, rubs, S3, or S4. ABDOMEN: Obese, soft, and nontender. No palpable masses. Healed midline surgical scar (status post hysterectomy). EXTREMITIES: No cyanosis, clubbing, or edema. 2+ dorsalis pedis pulses bilaterally. NEUROLOGIC: Alert and oriented. No focal motor deficits. LABORATORY AND DIAGNOSTIC DATA: Hemoglobin 12.2, hematocrit 38, white blood count 6500, and platelets 212,000. Sodium 146, potassium 3.3, chloride 108, bicarbonate 13, and BUN 0.7. EKG shows sinus rhythm with atrial synchronous ventricular pacing. Chest x-ray shows cardiomegaly with interstitial edema/infiltrates and dual-chamber pacemaker with leads entering from the left subclavian to the right atrium and right ventricle. ASSESSMENT AND RECOMMENDATIONS: The patient is a 76-year-old woman with multiple chronic medical problems as outlined above, who was admitted with increasing dyspnea, likely multifactorial due to combination of chronic obstructive pulmonary disease/bronchitis as well as congestive heart failure. She is receiving diuretics. I would agree with continued intravenous Lasix, afterload reduction with MARY inhibitors or angiotensin receptor blockers, and start Coreg once pulmonary congestion has resolved. Her pacemaker has been recently interrogated per the previous notes and was found to be functioning normally. Further recommendations will be made based on her clinical course. Felicity Montalvo M.D. DR: Octavia JOB#: [id number] CC:
[2017-03-21 21:19] LABS: BACTERIA,URINE FEW /HPF; SQUAMOUS EPITHELIAL CELL,UR OCCASIONAL /LPF (NONE/OCC)
[2017-03-22] VITALS: BP 106/62
--- NOTE | 2017-03-22 00:30 | History and Physical Report ---
DATE OF ADMISSION: 03/20/2017 CHIEF COMPLAINT: Shortness of breath. HISTORY OF PRESENT ILLNESS: This 76-year-old female with past medical history significant for diabetes type 2, COPD, congestive heart failure, history of sick sinus syndrome, status post pacemaker, who presented to the hospital complaining about shortness of breath progressive worsening over the past 24 hours. She was recently hospitalized and treated at the [facility] due to urinary tract infection. The patient called EMS, complained about shortness of breath. She was noted to be lay down in bed in her urine and she had no emesis. Shortly after initial evaluation in the emergency, the patient was admitted to the hospital with shortness of breath, possible CHF, with inability to take care of herself and failure to thrive. She was noted to have an elevated systolic blood pressure of 185 in the emergency room. Subsequently, the patient was admitted to the hospital with accelerated hypertension. IV hydralazine was given. PAST MEDICAL HISTORY/PAST SURGICAL HISTORY: As above, history of diabetes type 2; sick sinus syndrome, status post pacemaker, hepatitis C, gout, hypertension, COPD, and CHF MEDICATIONS: Medications at home significant for atorvastatin, docusate, furosemide, gabapentin, hydralazine, insulin aspart, Namenda, metformin, Singulair, Protonix, potassium chloride, rivaroxaban, spironolactone, and verapamil. ALLERGIES: To codeine, erythromycin, meperidine, and penicillin, however, the patient tolerated cephalosporin including Keflex, ceftriaxone, and cefepime in the past. SOCIAL HISTORY: The patient denies any smoking, alcohol or drugs. FAMILY HISTORY: Noncontributory. REVIEW OF SYSTEMS: Mostly as above. Denies any dysuria, frequency, or hematuria. Denies any hemoptysis or hematochezia. Denies any suicidal or homicidal ideation. Denies any loss of consciousness. PHYSICAL EXAMINATION: VITAL SIGNS: On admission, temperature 98.1, pulse of 96, respiration rate 20, and blood pressure 185/111. GENERAL: The patient is awake, responsive, in no acute distress, however, sleepy and somnolent. HEAD AND NECK: Pupils are equal, round, and reactive to light. Extraocular movements are intact. Neck was supple. No JVD. LUNGS: Bilateral air entry. Poor inspiratory effort. No wheezing or rales. HEART: S1 and S2. Distant heart sounds. Normal gallop. Pacemaker on the left-sided chest wall was noted. ABDOMEN: Soft, nontender, and nondistended. Morbidly obese. EXTREMITIES: No cyanosis, clubbing, or edema. NEUROLOGIC: Cranial nerves II through XII are grossly normal. Moves all four extremities. Gait was not assessed due to the patient's status. LABORATORY AND DIAGNOSTIC DATA: The patient's echocardiogram from 03/21/2017 noted that ejection fraction of 40 to 45% with no evidence of left ventricular hypertrophy, no evidence of pericardial or pleural effusion. The patient has moderate mitral regurgitation, mitral diastolic function not obtainable due to the arrhythmia, and moderate tricuspid regurgitation. EKG is ventricular pacing with occasional PVCs. Heart rate of 104. ASSESSMENT: 1. Acute congestive heart failure on chronic. 2. Diastolic dysfunction. 3. Failure to thrive. 4. Morbid obesity. 5. Diabetes type 2. 6. Hypertension. 7. Dyslipidemia. PLAN: Admit the patient to telemetry. We will follow up laboratory. Lasix IV. We will consider to get a PT evaluation. Accu-Chek with sliding scale discussed with Dr. Telles from Pulmonary and Critical Care and Dr. Mayes from Cardiology and Electrophysiology. We will monitor laboratory closely. Code status is Full Code. DVT prophylaxis, she is on Xarelto. Zion Echevarria M.D. DR: Attila JOB#: [id number] CC:
--- NOTE | 2017-03-22 02:15 | Consultation ---
DATE OF CONSULTATION: 03/21/2017 CARDIAC ELECTROPHYSIOLOGY CONSULTATION CONSULTING PHYSICIAN: Juve Mayes M.D. REFERRING PHYSICIAN: Zion Echevarria M.D. REASON FOR CONSULTATION: Management of atrial fibrillation as well as evaluation of the patient's pacemaker. HISTORY OF PRESENT ILLNESS: The patient is a very pleasant, 76-year-old lady under my cardiology care for many years with history of hypertension, congestive heart failure, paroxysmal atrial fibrillation as well as history of [employer] pacemaker implantation. The patient also has diabetes and COPD. The patient presented to the emergency room for increasing shortness of breath. The patient was and was admitted to telemetry. Her blood pressure in the emergency room was , received IV hydralazine. At the time of my evaluation, the patient denies any chest pain. Shortness of breath has improved. PAST MEDICAL HISTORY: 1. Hypertension. 2. Parooxysmal atrial fibrillation. 3. Status post [employer] pacemaker implantation. 4. Combined systolic and diastolic congestive heart failure. 5. COPD. 6. Diabetes. MEDICATIONS AT HOME: Lasix, Lipitor, hydralazine, metformin, Xarelto, Aldactone, and verapamil. ALLERGIES: She is allergic to erythromycin, codeine, meperidine, and penicillin. SOCIAL HISTORY: She lives at home. Does not smoke or drink alcohol. FAMILY HISTORY: Noncontributory. REVIEW OF SYSTEMS: Performed and was negative other than what was mentioned in the history of present illness. PHYSICAL EXAMINATION: VITAL SIGNS: Blood pressure 97/71, pulse 87, respirations 18, and temperature 97.7. HEAD AND NECK: Showed no JVD. LUNGS: Decreased breath sounds. CARDIOVASCULAR: S1 and S2 with no gallop or murmur. ABDOMEN: Soft and nontender. EXTREMITIES: She has 2+ pitting edema. SKIN: The pacemaker is left subclavian. LABORATORY AND DIAGNOSTIC DATA: Her labs show white count 6.5, hemoglobin 12.2, hematocrit of 38, and platelet count 212,000. Sodium 143, potassium 3.3, BUN of 13, creatinine 0.7, and glucose of 108. INR is 1.1. ASSESSMENT AND PLAN: 1. Paroxysmal atrial fibrillation. Her electrocardiogram showed baseline atrial fibrillation with ventricular paced rhythm at rate of 104. Continue verapamil for rate control 240 mg daily as well as Xarelto 20 mg daily. 2. Status post [employer] pacemaker implantation. Pacemaker will be interrogated for further evaluation. 3. Combined systolic and diastolic congestive heart failure. Ejection fraction is 40% to 45%. Continue Aldactone 25 mg daily and Lasix 40 mg IV every eight hours. 4. Chronic obstructive pulmonary disease. 5. Hepatitis C. 6. Hypertension, on verapamil, Aldactone, Lasix, and hydralazine. 7. Bilateral lower extremity edema. The patient is on Lasix. Refused lower extremity Doppler. Thank you very much, Dr. Echevarria, for allowing me to participate in the care of this patient. Please do not hesitate to contact me if you have any questions regarding my evaluation. Juve Mayes M.D. DR: Demarcus JOB#: [id number] CC:
[2017-03-22 04:00] VITALS: BP 108/69
[2017-03-22] MEDS: HydrALAZINE 25mg tab ORAL SCH ×4 (06:00→18:00)
[2017-03-22] MEDS: NovoLOG Insulin Flexpen SUBQ SCH ×4 (06:30→21:53)
[2017-03-22 07:55] LABS: ALANINE AMINOTRANSFERASE 16 U/L (12-78); ALBUMIN/GLOBULIN RATIO 0.8 (1.0-2.7); ANION GAP 9 mmol/L (5-15); ASPARTATE AMINO TRANSFERASE 24 U/L (15-37); CARBON DIOXIDE 29 MMOL/L (21-32); CHLORIDE 103 MMOL/L (98-107); CREATININE 0.7 MG/DL (0.55-1.30); MAGNESIUM 1.4 MG/DL (1.8-2.4); PHOSPHORUS 4.1 MG/DL (2.5-4.9); SODIUM 141 MMOL/L (136-145)
[2017-03-22 08:00] VITALS: BP 112/69
[2017-03-22] MEDS: Spironolactone 25mg tab ORAL SCH (08:29)
[2017-03-22] MEDS: Verapamil SR 240mg tab ORAL SCH ×2 (08:30→09:00)
[2017-03-22] MEDS: Montelukast 10mg tablet ORAL SCH (08:30)
[2017-03-22] MEDS: Memantine 5 MG TAB ORAL SCH ×3 (08:30→18:00)
[2017-03-22] MEDS ORDERED: Norco 5mg/325mg tab ORAL PRN (11:30)
--- NOTE | 2017-03-22 11:33 | Pulmonology Progress Note ---
Assessment/Plan Problems: (1) CHF (congestive heart failure) (2) COPD (chronic obstructive pulmonary disease) (3) Diabetes mellitus, type II (4) Generalized weakness (5) Pacemaker (6) Hepatitis C (7) HTN (hypertension) Assessment/Plan increase analgesics respiratory treatment check electrolytes titrate fi2 to sat of 92% PT dc planning Subjective ROS Limited/Unobtainable: No Interval Events: c/o left leg pain Allergies: Coded Allergies: ERYTHROMYCIN BASE (Verified Allergy, Intermediate, 08/28/16) MEPERIDINE (Verified Allergy, Unknown, 08/28/16) PENICILLINS (Verified Allergy, Unknown, 03/12/17) Tolerated Cefepime, Ceftriaxone, Keflex Objective Last 24 Hour Vital Signs Date Time Temp Pulse Resp B/P (MAP) Pulse Ox O2 Delivery O2 Flow Rate FiO2 03/22/17 08:00 97.5 78 18 112/69 98 03/22/17 06:00 108/69 03/22/17 04:00 98.2 71 20 108/69 100 Nasal Cannula 03/22/17 04:00 76 03/22/17 00:00 76 03/22/17 00:00 98.0 70 19 106/62 98 Nasal Cannula 03/22/17 00:00 107/75 03/21/17 21:44 73 18 Nasal Cannula 2.0 28 03/21/17 20:00 76 03/21/17 20:00 98.7 81 21 114/75 98 Nasal Cannula 03/21/17 18:06 114/72 03/21/17 16:00 87 03/21/17 16:00 98.8 84 18 114/72 99 03/21/17 12:00 87 03/21/17 12:00 97.7 87 18 97/71 97 03/21/17 12:00 97/71 General Appearance: WD/WN HEENT: normocephalic, atraumatic Respiratory/Chest: chest wall non-tender, lungs clear Breasts: no masses Cardiovascular: normal peripheral pulses Abdomen: normal bowel sounds, soft, non tender Genitourinary: normal external genitalia Extremities: no clubbing Neurologic/Psychiatric: information operator II-XII grossly normal Microbiology Date/Time Source Procedure Growth Status 03/20/17 19:45 Blood Blood Culture - Preliminary NO GROWTH AFTER 24 HOURS Resulted 03/20/17 19:30 Blood Blood Culture - Preliminary NO GROWTH AFTER 24 HOURS Resulted Laboratory Tests 03/21/17 18:00: Urine Color Yellow, Urine Appearance Clear, Urine pH 5, Urine Specific [place] 1.015, Urine Protein Negative, Urine Glucose (UA) Negative, Urine Ketones Negative, Urine Occult Blood 4+H, Urine Nitrite Negative, Urine Bilirubin Negative, Urine Urobilinogen 4H, Urine Leukocyte Esterase 2+H, Urine RBC 10-15H , Urine WBC 2-4, Urine Squamous Epithelial Cells Occasional, Urine Bacteria Few 03/21/17 20:20: Troponin I 0.003 03/22/17 06:13: Troponin I 0.000, Sodium Level 141, Potassium Level 4.0, Chloride Level 103, Carbon Dioxide Level 29, Anion Gap 9, Blood Urea Nitrogen 15, Creatinine 0.7, Estimat Glomerular Filtration Rate , Glucose Level 83, Calcium Level 9.0, Phosphorus Level 4.1, Magnesium Level 1.4L, Total Bilirubin 0.8, Aspartate Amino Transf (AST/SGOT) 24, Alanine Aminotransferase (ALT/SGPT) 16, Alkaline Phosphatase 93, Total Protein 8.0, Albumin 3.5, Globulin 4.5, Albumin/Globulin Ratio 0.8L Current Medications Medications (Trade) Dose Ordered Sig/Joann Route PRN Reason Start Time Stop Time Status Last Admin Dose Admin Acetaminophen (Tylenol) 650 mg Q4H PRN ORAL Fever 03/20/17 20:15 04/19/17 20:14 Acetaminophen/ Hydrocodone Bitart ([place] 5/325) 1 tab Q6H PRN ORAL For Pain 03/22/17 11:30 03/29/17 11:29 03/22/17 11:26 Albuterol/ Ipratropium (Albuterol/ Ipratropium) 3 ml EVERY 4 HOURS PRN HHN Shortness of Breath 03/20/17 20:15 03/25/17 20:14 Atorvastatin Calcium (Lipitor) 10 mg BEDTIME ORAL 03/20/17 21:00 04/19/17 20:59 03/21/17 21:21 Dextrose (Dextrose 50%) STAT PRN IV Hypoglycemia 03/20/17 20:15 04/19/17 20:14 Furosemide (Lasix) 40 mg EVERY 8 HOURS IV 03/20/17 22:00 04/19/17 21:59 03/22/17 06:30 Gabapentin (Neurontin) 300 mg BID ORAL 03/21/17 09:00 04/20/17 08:59 03/22/17 08:37 Hydralazine HCl (Apresoline) 25 mg EVERY 6 HOURS ORAL 03/21/17 06:00 04/20/17 05:59 03/21/17 18:06 Insulin Aspart (NovoLOG) BEFORE MEALS AND HS SUBQ 03/20/17 21:00 04/19/17 20:59 03/21/17 21:23 Memantine (Namenda) 5 mg BID ORAL 03/21/17 09:00 04/20/17 08:59 03/21/17 18:06 Montelukast Sodium (Singulair) 10 mg DAILY ORAL 03/21/17 09:00 04/20/17 08:59 03/22/17 08:30 Ondansetron HCl (Zofran) 4 mg Q6H PRN IVP Nausea & Vomiting 03/20/17 20:15 04/19/17 20:14 Pantoprazole (Protonix) 40 mg ACBREAKFAST ORAL 03/23/17 06:30 04/20/17 08:59 Polyethylene Glycol (Miralax) 17 gm DAILYPRN PRN ORAL Constipation 03/20/17 20:15 04/19/17 20:14 Rivaroxaban (Xarelto) 20 mg QPM ORAL 03/21/17 16:30 04/20/17 16:29 03/21/17 16:30 Spironolactone (Aldactone) 25 mg DAILY ORAL 03/21/17 09:00 04/20/17 08:59 03/22/17 08:29 Temazepam (Restoril) 15 mg HSPRN PRN ORAL Insomnia 03/20/17 20:15 03/27/17 20:14 Verapamil HCl (Calan SR) 240 mg DAILY ORAL 03/21/17 09:00 04/20/17 08:59 JONH RODRIGUEZ Mar 22, 2017 11:33
[2017-03-22 12:00] VITALS: BP 130/55
[2017-03-22 15:26] VITALS: BP 115/71
[2017-03-22] MEDS: Xarelto 10mg tab ORAL SCH (16:39)
[2017-03-22] MEDS ORDERED: Albuterol/Ipratropium 3ml neb HHN PRN (17:00)
--- NOTE | 2017-03-22 18:24 | Internal Med Progress Note ---
Subjective Physician Name Zion Echevarria Attending Physician Zion Echevarria MD Current Medications Medications (Trade) Dose Ordered Sig/Joann Route PRN Reason Start Time Stop Time Status Last Admin Dose Admin Acetaminophen (Tylenol) 650 mg Q4H PRN ORAL Fever 03/22/17 16:15 04/19/17 20:14 Acetaminophen/ Hydrocodone Bitart ([place] 5/325) 1 tab Q6H PRN ORAL For Pain 03/22/17 17:30 03/29/17 11:29 Albuterol/ Ipratropium (Albuterol/ Ipratropium) 3 ml Q4H PRN HHN Shortness of Breath 03/22/17 17:00 03/27/17 16:59 Atorvastatin Calcium (Lipitor) 10 mg BEDTIME ORAL 03/22/17 21:00 04/19/17 20:59 Dextrose (Dextrose 50%) STAT PRN IV Hypoglycemia 03/22/17 20:15 04/19/17 20:14 Furosemide (Lasix) 40 mg EVERY 8 HOURS IV 03/22/17 22:00 04/19/17 21:59 Gabapentin (Neurontin) 300 mg BID ORAL 03/22/17 18:00 04/20/17 08:59 Hydralazine HCl (Apresoline) 25 mg EVERY 6 HOURS ORAL 03/22/17 18:00 04/20/17 05:59 Insulin Aspart (NovoLOG) BEFORE MEALS AND HS SUBQ 03/22/17 16:30 04/19/17 20:59 Memantine (Namenda) 5 mg BID ORAL 03/22/17 18:00 04/20/17 08:59 Montelukast Sodium (Singulair) 10 mg DAILY ORAL 03/23/17 09:00 04/20/17 08:59 Ondansetron HCl (Zofran) 4 mg Q6H PRN IVP Nausea & Vomiting 03/22/17 20:15 04/19/17 20:14 Pantoprazole (Protonix) 40 mg ACBREAKFAST ORAL 03/23/17 06:30 04/20/17 08:59 Polyethylene Glycol (Miralax) 17 gm DAILYPRN PRN ORAL Constipation 03/22/17 20:15 04/19/17 20:14 Rivaroxaban (Xarelto) 20 mg QPM ORAL 03/22/17 16:30 04/20/17 16:29 03/22/17 16:39 Spironolactone (Aldactone) 25 mg DAILY ORAL 03/23/17 09:00 04/20/17 08:59 Temazepam (Restoril) 15 mg HSPRN PRN ORAL Insomnia 03/22/17 20:15 03/27/17 20:14 Verapamil HCl (Calan SR) 240 mg DAILY ORAL 03/23/17 09:00 04/20/17 08:59 Allergies: Coded Allergies: ERYTHROMYCIN BASE (Verified Allergy, Intermediate, 08/28/16) MEPERIDINE (Verified Allergy, Unknown, 08/28/16) PENICILLINS (Verified Allergy, Unknown, 03/12/17) Tolerated Cefepime, Ceftriaxone, Keflex Subjective awake, alert, more responsive, No CP, less SOB Objective Last Vital Signs Date Time Temp Pulse Resp B/P (MAP) Pulse Ox O2 Delivery O2 Flow Rate FiO2 03/22/17 17:17 77 18 Nasal Cannula 2.0 28 03/22/17 15:26 97.7 115/71 99 Laboratory Tests Test 03/21/17 20:20 03/22/17 06:13 Troponin I 0.003 ng/mL (0.000-0.056) 0.000 ng/mL (0.000-0.056) Sodium Level 141 MMOL/L (136-145) Potassium Level 4.0 MMOL/L (3.5-5.1) Chloride Level 103 MMOL/L (98-107) Carbon Dioxide Level 29 MMOL/L (21-32) Anion Gap 9 mmol/L (5-15) Blood Urea Nitrogen 15 mg/dL (7-18) Creatinine 0.7 MG/DL (0.55-1.30) Estimat Glomerular Filtration Rate mL/min (>60) Glucose Level 83 MG/DL (74-106) Calcium Level 9.0 MG/DL (8.5-10.1) Phosphorus Level 4.1 MG/DL (2.5-4.9) Magnesium Level 1.4 MG/DL (1.8-2.4) L Total Bilirubin 0.8 MG/DL (0.2-1.0) Aspartate Amino Transf (AST/SGOT) 24 U/L (15-37) Alanine Aminotransferase (ALT/SGPT) 16 U/L (12-78) Alkaline Phosphatase 93 U/L (46-116) Total Protein 8.0 G/DL (6.4-8.2) Albumin 3.5 G/DL (3.4-5.0) Globulin 4.5 g/dL Albumin/Globulin Ratio 0.8 (1.0-2.7) L Microbiology Date/Time Source Procedure Growth Status 03/20/17 19:45 Blood Blood Culture - Preliminary NO GROWTH AFTER 24 HOURS Resulted 03/20/17 19:30 Blood Blood Culture - Preliminary NO GROWTH AFTER 24 HOURS Resulted Intake and Output 03/22/17 03/23/17 19:00 07:00 Intake Total 360 ml Balance 360 ml Intake Oral 360 ml # Voids 4 Objective General: No acute distress, awake and alert HEENT: NCAT, sclera anicteric, PERRL, EOMI. Neck: Supple, no significant jugular venous distention, Lungs: fair inspiratory effort, clear to auscultation bilaterally, decrease air at bases, no Wheeze or Rales. Heart: Irregular rate and rhythm, normal S1/S2, no murmurs, Pacemaker @ [facility]. Abdomen: soft, nontender, nondistended. Normoactive bowel sounds. / Rectal: Refused and deferred. Extremities: No Cyanosis , clubbing or edema. Neuro: A&O x 3, Able to move all extremities slowly. Skin: warm, no rashes Psych: Normal mood and affect Assessment/Plan Assessment/Plan 1. Paroxysmal atrial fibrillation. 2. Status post [employer] pacemaker implantation. 3. Acute on chronic Combined systolic and diastolic congestive heart failure. Ejection fraction is 40% to 45%. 4. Chronic obstructive pulmonary disease. 5. Hepatitis C. 6. Hypertension, 7. Bilateral lower extremity edema. 8. Morbid obesity 9. Failure to thrive. 10. Diabetes type 2. 11. Dyslipidemia. PLAN: discuss with patient regarding plan of care and discharge planning to SNF, Eliceo ISLAS Monitor Labs Xarelto PO PT mobility DC Telemetry DC planning for AM Zion Echevarria MD Mar 22, 2017 18:24
[2017-03-22 20:00] VITALS: BP 110/58
[2017-03-22] MEDS ORDERED: Miralax 17gm pkt ORAL PRN (20:15)
[2017-03-23] VITALS: BP 115/62
[2017-03-23 04:00] VITALS: BP 118/66
[2017-03-23] MEDS: HydrALAZINE 25mg tab ORAL SCH ×4 (06:03→17:15)
[2017-03-23] MEDS: NovoLOG Insulin Flexpen SUBQ SCH ×4 (06:13→21:24)
[2017-03-23 06:44] LABS: BASOPHILS % (AUTO) 0.9 % (0.0-2.0); EOSINOPHILS % (AUTO) 5.4 % (0.0-3.0); LYMPHOCYTES % (AUTO) 38.3 % (20.0-45.0); MEAN CORPUSCULAR HEMOGLOBIN 27.9 PG (27.0-31.0); MEAN CORPUSCULAR HGB CONC 33.3 G/DL (32.0-36.0); MEAN CORPUSCULAR VOLUME 84 FL (80-99); MEAN PLATELET VOLUME 8.6 FL (6.5-10.1); MONOCYTES % (AUTO) 8.8 % (1.0-10.0); NEUTROPHILS % (AUTO) 46.5 % (45.0-75.0); PLATELET COUNT 216 K/UL (150-450); RED BLOOD COUNT 4.56 M/UL (4.20-5.40); WHITE BLOOD COUNT 6.2 K/UL (4.8-10.8)
[2017-03-23 06:59] LABS: ALANINE AMINOTRANSFERASE 19 U/L (12-78); ALBUMIN/GLOBULIN RATIO 0.8 (1.0-2.7); ANION GAP 5 mmol/L (5-15); ASPARTATE AMINO TRANSFERASE 18 U/L (15-37); CALCIUM 9.3 MG/DL (8.5-10.1); CARBON DIOXIDE 37 MMOL/L (21-32); CHLORIDE 100 MMOL/L (98-107); CREATININE 0.8 MG/DL (0.55-1.30); MAGNESIUM 1.6 MG/DL (1.8-2.4); POTASSIUM 3.3 MMOL/L (3.5-5.1); SODIUM 141 MMOL/L (136-145); TOTAL PROTEIN 7.7 G/DL (6.4-8.2)
[2017-03-23 08:15] VITALS: BP 121/77
[2017-03-23] MEDS: Montelukast 10mg tablet ORAL SCH (08:29)
[2017-03-23] MEDS: Spironolactone 25mg tab ORAL SCH (08:29)
[2017-03-23] MEDS: Memantine 5 MG TAB ORAL SCH ×2 (08:29→16:53)
[2017-03-23] MEDS ORDERED: Verapamil SR 240mg tab ORAL SCH ×2 (09:00→21:00)
--- NOTE | 2017-03-23 10:08 | Cardiology Report ---
APPROVED REPORT EXAM: Two-dimensional and M-mode echocardiogram with Doppler and color Doppler. INDICATION Left ventricular function M-Mode DIMENSIONS IVSd1.9 (0.7-1.1cm)Left Atrium (MM)4.6 (1.6-4.0cm) LVDd5.7 (3.5-5.6cm)Aortic Root2.9 (2.0-3.7cm) PWd1.1 (0.7-1.1cm)Aortic Cusp Exc.1.8 (1.5-2.0cm) LVDs4.5 (2.5-4.0cm) PWs1.1 cm Technically difficult study due to poor acoustical windows. Mild left ventricular enlargement. Mild global left ventricular hypokinesis. Left ventricular ejection fraction estimated to be 50-55%. No evidence of left ventricular hypertrophy. No evidence of pericardial or pleural effusion. Moderate bi-atrial enlargement by 2D. Focal aortic valve sclerosis with adequate cusp excursion. Thickened mitral valve leaflets with normal excursion. Mild mitral annulus and aortic root calcification. Pulmonic valve not well visualized. Normal tricuspid valve structure. IVC dilated at 2.2 cm minimal collapse with respiration. Probable pacemaker wire present in the right side chambers. A color flow and spectral Doppler study was performed and revealed: Trace aortic regurgitation. Moderate mitral regurgitation. Mitral diastolic function not obtainable due to arrhythmia. Moderate tricuspid regurgitation. Tricuspid systolic velocities suggests peak right ventricular systolic pressure of 37 mmHg Consistent with mild pulmonary hypertension.
[2017-03-23] MEDS ORDERED: Tubing IV Secondary IV ONE (11:23)
[2017-03-23] MEDS ORDERED: NS 500ML ONE (11:23)
--- NOTE | 2017-03-23 11:42 | Internal Med Progress Note ---
Subjective Date of Service: Mar 23, 2017 Physician Name Chema Colin Attending Physician Zion Echevarria MD Current Medications Medications (Trade) Dose Ordered Sig/Joann Route PRN Reason Start Time Stop Time Status Last Admin Dose Admin Acetaminophen (Tylenol) 650 mg Q4H PRN ORAL Fever 03/22/17 16:15 04/19/17 20:14 Acetaminophen/ Hydrocodone Bitart ([place] 5/325) 1 tab Q6H PRN ORAL For Pain 03/22/17 17:30 03/29/17 11:29 Albuterol/ Ipratropium (Albuterol/ Ipratropium) 3 ml Q4H PRN HHN Shortness of Breath 03/22/17 17:00 03/27/17 16:59 Atorvastatin Calcium (Lipitor) 10 mg BEDTIME ORAL 03/22/17 21:00 04/19/17 20:59 03/22/17 21:52 Cefdinir (Cefdinir) 300 mg Q12HR ORAL 03/23/17 11:00 03/30/17 10:59 Dextrose (Dextrose 50%) STAT PRN IV Hypoglycemia 03/22/17 20:15 04/19/17 20:14 Furosemide (Lasix) 40 mg EVERY 8 HOURS IV 03/22/17 22:00 04/19/17 21:59 Gabapentin (Neurontin) 300 mg BID ORAL 03/22/17 18:00 04/20/17 08:59 03/23/17 08:29 Hydralazine HCl (Apresoline) 25 mg EVERY 6 HOURS ORAL 03/22/17 18:00 04/20/17 05:59 03/23/17 06:03 Insulin Aspart (NovoLOG) BEFORE MEALS AND HS SUBQ 03/22/17 16:30 04/19/17 20:59 03/23/17 11:30 Memantine (Namenda) 5 mg BID ORAL 03/22/17 18:00 04/20/17 08:59 Montelukast Sodium (Singulair) 10 mg DAILY ORAL 03/23/17 09:00 04/20/17 08:59 03/23/17 08:29 Ondansetron HCl (Zofran) 4 mg Q6H PRN IVP Nausea & Vomiting 03/22/17 20:15 04/19/17 20:14 Pantoprazole (Protonix) 40 mg ACBREAKFAST ORAL 03/23/17 06:30 04/20/17 08:59 03/23/17 06:03 Polyethylene Glycol (Miralax) 17 gm DAILYPRN PRN ORAL Constipation 03/22/17 20:15 04/19/17 20:14 Rivaroxaban (Xarelto) 20 mg QPM ORAL 03/22/17 16:30 04/20/17 16:29 03/22/17 16:39 Spironolactone (Aldactone) 25 mg DAILY ORAL 03/23/17 09:00 04/20/17 08:59 03/23/17 08:29 Temazepam (Restoril) 15 mg HSPRN PRN ORAL Insomnia 03/22/17 20:15 03/27/17 20:14 Verapamil HCl (Calan SR) 240 mg QHS ORAL 03/23/17 21:00 04/20/17 08:59 Allergies: Coded Allergies: ERYTHROMYCIN BASE (Verified Allergy, Intermediate, 08/28/16) MEPERIDINE (Verified Allergy, Unknown, 08/28/16) PENICILLINS (Verified Allergy, Unknown, 03/12/17) Tolerated Cefepime, Ceftriaxone, Keflex ROS Limited/Unobtainable: No Constitutional: Reports: no symptoms HEENT: Reports: no symptoms Cardiovascular: Reports: no symptoms Respiratory: Reports: shortness of breath Gastrointestinal/Abdominal: Reports: no symptoms Genitourinary: Reports: no symptoms Neurologic/Psychiatric: Reports: no symptoms Subjective 76 YO F admitted with shortness of breath and kane heart failure. Cover for Int Ryan-Dr Echevarria Objective Last Vital Signs Date Time Temp Pulse Resp B/P (MAP) Pulse Ox O2 Delivery O2 Flow Rate FiO2 03/23/17 09:00 80 122/67 03/23/17 08:15 98.3 21 98 Nasal Cannula 2.0 03/22/17 19:42 28 Laboratory Tests Test 03/23/17 05:25 White Blood Count 6.2 K/UL (4.8-10.8) Red Blood Count 4.56 M/UL (4.20-5.40) Hemoglobin 12.7 G/DL (12.0-16.0) Hematocrit 38.2 % (37.0-47.0) Mean Corpuscular Volume 84 FL (80-99) Mean Corpuscular Hemoglobin 27.9 PG (27.0-31.0) Mean Corpuscular Hemoglobin Concent 33.3 G/DL (32.0-36.0) Red Cell Distribution Width 14.0 % (11.6-14.8) Platelet Count 216 K/UL (150-450) Mean Platelet Volume 8.6 FL (6.5-10.1) Neutrophils (%) (Auto) 46.5 % (45.0-75.0) Lymphocytes (%) (Auto) 38.3 % (20.0-45.0) Monocytes (%) (Auto) 8.8 % (1.0-10.0) Eosinophils (%) (Auto) 5.4 % (0.0-3.0) H Basophils (%) (Auto) 0.9 % (0.0-2.0) Sodium Level 141 MMOL/L (136-145) Potassium Level 3.3 MMOL/L (3.5-5.1) L Chloride Level 100 MMOL/L (98-107) Carbon Dioxide Level 37 MMOL/L (21-32) H Anion Gap 5 mmol/L (5-15) Blood Urea Nitrogen 19 mg/dL (7-18) H Creatinine 0.8 MG/DL (0.55-1.30) Estimat Glomerular Filtration Rate mL/min (>60) Glucose Level 89 MG/DL (74-106) Calcium Level 9.3 MG/DL (8.5-10.1) Phosphorus Level 4.0 MG/DL (2.5-4.9) Magnesium Level 1.6 MG/DL (1.8-2.4) L Total Bilirubin 0.6 MG/DL (0.2-1.0) Aspartate Amino Transf (AST/SGOT) 18 U/L (15-37) Alanine Aminotransferase (ALT/SGPT) 19 U/L (12-78) Alkaline Phosphatase 90 U/L (46-116) Total Protein 7.7 G/DL (6.4-8.2) Albumin 3.3 G/DL (3.4-5.0) L Globulin 4.4 g/dL Albumin/Globulin Ratio 0.8 (1.0-2.7) L Microbiology Date/Time Source Procedure Growth Status 03/20/17 19:45 Blood Blood Culture - Preliminary NO GROWTH AFTER 48 HOURS Resulted 03/20/17 19:30 Blood Blood Culture - Preliminary NO GROWTH AFTER 48 HOURS Resulted 03/20/17 21:55 Nasal Nares MRSA Culture - Final NO METHICILLIN RESISTANT STAPH AUREUS... Complete 03/20/17 21:55 Rectum VRE Culture - Final Enterococcus Faecalis - Vre Complete Intake and Output 03/23/17 03/24/17 19:00 07:00 Intake Total 240 ml Balance 240 ml Intake Oral 240 ml # Voids 1 Objective Objective General: No acute distress, awake and alert HEENT: NCAT, sclera anicteric, PERRL, EOMI. Neck: Supple, no significant jugular venous distention, Lungs: fair inspiratory effort, clear to auscultation bilaterally, decrease air at bases, no Wheeze or Rales. Heart: Irregular rate and rhythm, normal S1/S2, no murmurs, Pacemaker @ [employer]. Abdomen: soft, nontender, nondistended. Normoactive bowel sounds. / Rectal: Refused and deferred. Extremities: No Cyanosis , clubbing or edema. Neuro: A&O x 3, Able to move all extremities slowly. Skin: warm, no rashes Psych: Normal mood and affect Assessment/Plan Assessment/Plan Assessment/Plan 1. Paroxysmal atrial fibrillation. 2. Status post [employer] pacemaker implantation. 3. Acute on chronic Combined systolic and diastolic congestive heart failure. Ejection fraction is 40% to 45%. 4. Chronic obstructive pulmonary disease. 5. Hepatitis C. 6. Hypertension, 7. Bilateral lower extremity edema. 8. Morbid obesity 9. Failure to thrive. 10. Diabetes type 2. 11. Dyslipidemia. PLAN: discuss with patient regarding plan of care and discharge planning to SNF, Eliceo ISLAS Monitor Labs Xarelto PO PT mobility DC Telemetry DC planning for CHEMA SHELLEY Mar 23, 2017 11:42
--- NOTE | 2017-03-23 12:07 | Cardiac Electrophysiology PN ---
Assessment/Plan Assessment/Plan 1. Paroxysmal atrial fibrillation. Continue verapamil 240 mg Qhs and Xarelto 20 mg daily. 2. Status post [employer] pacemaker implantation. Pacemaker interrogation in office Nl Fx 3. Combined systolic and diastolic congestive heart failure. Ejection fraction is 40% to 45%. Continue Aldactone 25 mg daily and decrease Lasix to 40 mg IV daily. Likely need to change her Verapamil to Lopressor in view of CMP. Will DW patient again. 4. Chronic obstructive pulmonary disease. 5. Hepatitis C. 6. Hypertension, on verapamil, Aldactone, Lasix, and hydralazine. 7. Bilateral lower extremity edema. The patient is on Lasix. Refused lower extremity Doppler. DW RN Subjective Subjective Feeling better. No chest pain or SOB. Objective Last 24 Hour Vital Signs Date Time Temp Pulse Resp B/P (MAP) Pulse Ox O2 Delivery O2 Flow Rate FiO2 03/23/17 09:00 80 122/67 03/23/17 08:15 98.3 74 21 121/77 98 Nasal Cannula 2.0 03/23/17 06:03 122/67 03/23/17 04:00 97.5 80 20 118/66 99 03/23/17 04:00 Nasal Cannula 2.0 03/23/17 00:00 115/62 03/23/17 00:00 Nasal Cannula 2.0 03/23/17 00:00 97.3 79 21 115/62 98 03/22/17 20:00 Nasal Cannula 2.0 03/22/17 20:00 97.0 81 21 110/58 98 03/22/17 19:42 Nasal Cannula 2.0 28 03/22/17 19:42 98 Nasal Cannula 2.0 28 03/22/17 18:00 115/71 03/22/17 17:17 77 18 Nasal Cannula 2.0 28 03/22/17 15:26 97.7 74 18 115/71 99 Nasal Cannula 2.0 03/22/17 13:37 97.7 03/22/17 12:12 132/88 Intake and Output 03/23/17 03/24/17 19:00 07:00 Intake Total 240 ml Balance 240 ml Intake Oral 240 ml # Voids 1 Laboratory Tests Test 03/23/17 05:25 White Blood Count 6.2 K/UL (4.8-10.8) Red Blood Count 4.56 M/UL (4.20-5.40) Hemoglobin 12.7 G/DL (12.0-16.0) Hematocrit 38.2 % (37.0-47.0) Mean Corpuscular Volume 84 FL (80-99) Mean Corpuscular Hemoglobin 27.9 PG (27.0-31.0) Mean Corpuscular Hemoglobin Concent 33.3 G/DL (32.0-36.0) Red Cell Distribution Width 14.0 % (11.6-14.8) Platelet Count 216 K/UL (150-450) Mean Platelet Volume 8.6 FL (6.5-10.1) Neutrophils (%) (Auto) 46.5 % (45.0-75.0) Lymphocytes (%) (Auto) 38.3 % (20.0-45.0) Monocytes (%) (Auto) 8.8 % (1.0-10.0) Eosinophils (%) (Auto) 5.4 % (0.0-3.0) H Basophils (%) (Auto) 0.9 % (0.0-2.0) Sodium Level 141 MMOL/L (136-145) Potassium Level 3.3 MMOL/L (3.5-5.1) L Chloride Level 100 MMOL/L (98-107) Carbon Dioxide Level 37 MMOL/L (21-32) H Anion Gap 5 mmol/L (5-15) Blood Urea Nitrogen 19 mg/dL (7-18) H Creatinine 0.8 MG/DL (0.55-1.30) Estimat Glomerular Filtration Rate mL/min (>60) Glucose Level 89 MG/DL (74-106) Calcium Level 9.3 MG/DL (8.5-10.1) Phosphorus Level 4.0 MG/DL (2.5-4.9) Magnesium Level 1.6 MG/DL (1.8-2.4) L Total Bilirubin 0.6 MG/DL (0.2-1.0) Aspartate Amino Transf (AST/SGOT) 18 U/L (15-37) Alanine Aminotransferase (ALT/SGPT) 19 U/L (12-78) Alkaline Phosphatase 90 U/L (46-116) Total Protein 7.7 G/DL (6.4-8.2) Albumin 3.3 G/DL (3.4-5.0) L Globulin 4.4 g/dL Albumin/Globulin Ratio 0.8 (1.0-2.7) L Microbiology Date/Time Source Procedure Growth Status 03/20/17 19:45 Blood Blood Culture - Preliminary NO GROWTH AFTER 48 HOURS Resulted 03/20/17 19:30 Blood Blood Culture - Preliminary NO GROWTH AFTER 48 HOURS Resulted 03/20/17 21:55 Nasal Nares MRSA Culture - Final NO METHICILLIN RESISTANT STAPH AUREUS... Complete 03/20/17 21:55 Rectum VRE Culture - Final Enterococcus Faecalis - Vre Complete Objective HEAD AND NECK: Showed no JVD. LUNGS: Decreased breath sounds. CARDIOVASCULAR: Regular S1 and S2 with no gallop or murmur. ABDOMEN: Soft and nontender. EXTREMITIES: She has 2+ pitting edema. SKIN: The pacemaker is left subclavian. JAMAAL LAWS Mar 23, 2017 12:07
[2017-03-23 12:15] VITALS: BP 107/66
[2017-03-23] MEDS: Cefdinir 300mg cap ORAL SCH ×2 (13:23→21:08)
--- NOTE | 2017-03-23 15:04 | Wound Care Consultation ---
Wound Assessment Wound Assessment : Wound Number: 1 Wound Present on Admission: Yes New Wound: No Status Change of Wound: No Wound Location Body Site: other - sacrococcygeal Wound Type: pressure ulcer Dyan Test: Does not Dyan Pressure Ulcer Stage: III - noted surrounding tissue with full thickness scar tissue noted mid sacrococcygeal area appearing stage 3 pressure ulcer at this time. Wound Thickness: Full Thickness Wound Length: 1.0 Wound Width: 2.0 Wound Depth: 0.3 Percent of Wound [place]/Red: 100 Wound Drainage Description: Serosanguineous Wound Drainage Amount: Scant Wound Drainage Odor: None/Absent Tissue Surrounding Wound: Macerated Wound General Appearance: Reddened, Draining Wound Comment #1 Sacrococcygeal stage 3 pressure ulcer with large scattered full thickness scar tissue to surrounding area and left and right buttocks. #2 Left and right lateral malleolus scar tissue. Recommendation. -Local wound care as ordered. -Apply Low air loss SPR mattress. -Turn and reposition. -Keep clean and dry. -Optimize nutrition. -Avoid shear and friction. -Offload affected sacral site, heels and feet -Assess scar tissues for any change of condition to skin. -Assess and notify MD for any further change of condition to skin noted. MICHAEL TAMAYO Mar 23, 2017 15:04
[2017-03-23] MEDS: Xarelto 10mg tab ORAL SCH (16:16)
[2017-03-23 16:17] VITALS: BP 111/68
--- NOTE | 2017-03-23 16:44 | Pulmonology Progress Note ---
Assessment/Plan Problems: (1) CHF (congestive heart failure) (2) COPD (chronic obstructive pulmonary disease) (3) Diabetes mellitus, type II (4) Generalized weakness (5) Pacemaker (6) Hepatitis C (7) HTN (hypertension) Assessment/Plan wound care on lasix f/u cardio recommendations increase analgesics respiratory treatment check electrolytes titrate fi2 to sat of 92% PT Subjective ROS Limited/Unobtainable: No Constitutional: Reports: no symptoms HEENT: Repors: no symptoms Respiratory: Reports: no symptoms Allergies: Coded Allergies: ERYTHROMYCIN BASE (Verified Allergy, Intermediate, 08/28/16) MEPERIDINE (Verified Allergy, Unknown, 08/28/16) PENICILLINS (Verified Allergy, Unknown, 03/12/17) Tolerated Cefepime, Ceftriaxone, Keflex Objective Last 24 Hour Vital Signs Date Time Temp Pulse Resp B/P (MAP) Pulse Ox O2 Delivery O2 Flow Rate FiO2 03/23/17 16:17 97.7 74 21 111/68 99 Nasal Cannula 2.0 03/23/17 13:40 78 18 Nasal Cannula 2.0 28 03/23/17 13:40 98 Nasal Cannula 2.0 28 03/23/17 13:40 Nasal Cannula 2.0 28 03/23/17 13:23 107/66 03/23/17 12:15 97.3 75 18 107/66 99 Room Air 03/23/17 09:00 80 122/67 03/23/17 08:15 98.3 74 21 121/77 98 Nasal Cannula 2.0 03/23/17 06:03 122/67 03/23/17 04:00 97.5 80 20 118/66 99 03/23/17 04:00 Nasal Cannula 2.0 03/23/17 00:00 115/62 03/23/17 00:00 Nasal Cannula 2.0 03/23/17 00:00 97.3 79 21 115/62 98 03/22/17 20:00 Nasal Cannula 2.0 03/22/17 20:00 97.0 81 21 110/58 98 03/22/17 19:42 Nasal Cannula 2.0 28 03/22/17 19:42 98 Nasal Cannula 2.0 28 03/22/17 18:00 115/71 03/22/17 17:17 77 18 Nasal Cannula 2.0 28 Intake and Output 03/23/17 03/24/17 19:00 07:00 Intake Total 480 ml Balance 480 ml Intake Oral 480 ml # Voids 1 General Appearance: WD/WN HEENT: normocephalic Respiratory/Chest: chest wall non-tender, lungs clear Breasts: no masses Cardiovascular: normal peripheral pulses, normal rate Abdomen: normal bowel sounds, soft, non tender Genitourinary: normal external genitalia Extremities: no clubbing 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 Complete 03/20/17 21:55 Rectum VRE Culture - Final Enterococcus Faecalis - Vre Complete Laboratory Tests 03/23/17 05:25: White Blood Count 6.2, Red Blood Count 4.56, Hemoglobin 12.7, Hematocrit 38.2, Mean Corpuscular Volume 84, Mean Corpuscular Hemoglobin 27.9, Mean Corpuscular Hemoglobin Concent 33.3, Red Cell Distribution Width 14.0, Platelet Count 216, Mean Platelet Volume 8.6, Neutrophils (%) (Auto) 46.5, Lymphocytes (%) (Auto) 38.3, Monocytes (%) (Auto) 8.8, Eosinophils (%) (Auto) 5.4H, Basophils (%) (Auto ) 0.9, Sodium Level 141, Potassium Level 3.3L, Chloride Level 100, Carbon Dioxide Level 37H, Anion Gap 5, Blood Urea Nitrogen 19H, Creatinine 0.8, Estimat Glomerular Filtration Rate , Glucose Level 89, Calcium Level 9.3, Phosphorus Level 4.0, Magnesium Level 1.6L, Total Bilirubin 0.6, Aspartate Amino Transf (AST/SGOT) 18, Alanine Aminotransferase (ALT/SGPT) 19, Alkaline Phosphatase 90, Total Protein 7.7, Albumin 3.3L, Globulin 4.4, Albumin/Globulin Ratio 0.8L Current Medications Medications (Trade) Dose Ordered Sig/Joann Route PRN Reason Start Time Stop Time Status Last Admin Dose Admin Acetaminophen (Tylenol) 650 mg Q4H PRN ORAL Fever 03/22/17 16:15 04/19/17 20:14 Acetaminophen/ Hydrocodone Bitart ([place] 5/325) 1 tab Q6H PRN ORAL For Pain 03/22/17 17:30 03/29/17 11:29 Albuterol/ Ipratropium (Albuterol/ Ipratropium) 3 ml Q4H PRN HHN Shortness of Breath 03/22/17 17:00 03/27/17 16:59 Atorvastatin Calcium (Lipitor) 10 mg BEDTIME ORAL 03/22/17 21:00 04/19/17 20:59 03/22/17 21:52 Cefdinir (Cefdinir) 300 mg Q12HR ORAL 03/23/17 11:00 03/30/17 10:59 03/23/17 13:23 Dextrose (Dextrose 50%) STAT PRN IV Hypoglycemia 03/22/17 20:15 04/19/17 20:14 Furosemide (Lasix) 40 mg DAILY IV 03/24/17 09:00 04/19/17 21:59 Gabapentin (Neurontin) 300 mg BID ORAL 03/22/17 18:00 04/20/17 08:59 03/23/17 08:29 Hydralazine HCl (Apresoline) 25 mg EVERY 6 HOURS ORAL 03/22/17 18:00 04/20/17 05:59 03/23/17 06:03 Insulin Aspart (NovoLOG) BEFORE MEALS AND HS SUBQ 03/22/17 16:30 04/19/17 20:59 03/23/17 16:20 Memantine (Namenda) 5 mg BID ORAL 03/22/17 18:00 04/20/17 08:59 Metoprolol Tartrate (Lopressor) 25 mg Q12HR ORAL 03/23/17 21:00 04/22/17 20:59 Montelukast Sodium (Singulair) 10 mg DAILY ORAL 03/23/17 09:00 04/20/17 08:59 03/23/17 08:29 Ondansetron HCl (Zofran) 4 mg Q6H PRN IVP Nausea & Vomiting 03/22/17 20:15 04/19/17 20:14 Pantoprazole (Protonix) 40 mg ACBREAKFAST ORAL 03/23/17 06:30 04/20/17 08:59 03/23/17 06:03 Polyethylene Glycol (Miralax) 17 gm DAILYPRN PRN ORAL Constipation 03/22/17 20:15 04/19/17 20:14 Rivaroxaban (Xarelto) 20 mg QPM ORAL 03/22/17 16:30 04/20/17 16:29 03/23/17 16:16 Spironolactone (Aldactone) 25 mg DAILY ORAL 03/23/17 09:00 04/20/17 08:59 03/23/17 08:29 Temazepam (Restoril) 15 mg HSPRN PRN ORAL Insomnia 03/22/17 20:15 03/27/17 20:14 JONH RODRIGUEZ Mar 23, 2017 16:44
[2017-03-23 20:00] VITALS: BP 112/73
[2017-03-23] MEDS: Metoprolol 25mg tab ORAL SCH (21:00)
[2017-03-23] MEDS: Magnesium Oxide 400mg tab ORAL SCH (21:09)
[2017-03-24] VITALS: BP 126/77
[2017-03-24 04:00] VITALS: BP 118/60
[2017-03-24] MEDS: HydrALAZINE 25mg tab ORAL SCH ×4 (06:00→17:22)
[2017-03-24] MEDS: NovoLOG Insulin Flexpen SUBQ SCH ×4 (06:17→20:49)
[2017-03-24 06:42] LABS: BASOPHILS % (AUTO) 1.6 % (0.0-2.0); EOSINOPHILS % (AUTO) 4.4 % (0.0-3.0); LYMPHOCYTES % (AUTO) 32.8 % (20.0-45.0); MEAN CORPUSCULAR HEMOGLOBIN 28.2 PG (27.0-31.0); MEAN CORPUSCULAR HGB CONC 33.6 G/DL (32.0-36.0); MEAN CORPUSCULAR VOLUME 84 FL (80-99); MEAN PLATELET VOLUME 8.2 FL (6.5-10.1); MONOCYTES % (AUTO) 8.5 % (1.0-10.0); NEUTROPHILS % (AUTO) 52.8 % (45.0-75.0); PLATELET COUNT 210 K/UL (150-450); RED BLOOD COUNT 4.63 M/UL (4.20-5.40); WHITE BLOOD COUNT 6.6 K/UL (4.8-10.8)
[2017-03-24 07:34] LABS: ANION GAP 7 mmol/L (5-15); CARBON DIOXIDE 33 MMOL/L (21-32); CHLORIDE 102 MMOL/L (98-107); CREATININE 0.7 MG/DL (0.55-1.30); POTASSIUM 3.9 MMOL/L (3.5-5.1); SODIUM 142 MMOL/L (136-145)
[2017-03-24 08:18] LABS: CALCIUM 9.5 MG/DL (8.5-10.1)
[2017-03-24 08:21] VITALS: BP 108/66
[2017-03-24] MEDS: Memantine 5 MG TAB ORAL SCH ×2 (08:24→17:22)
[2017-03-24] MEDS: Cefdinir 300mg cap ORAL SCH ×2 (08:24→20:46)
[2017-03-24] MEDS: Magnesium Oxide 400mg tab ORAL SCH ×2 (08:25→17:22)
[2017-03-24] MEDS: Montelukast 10mg tablet ORAL SCH (08:25)
[2017-03-24] MEDS: Spironolactone 25mg tab ORAL SCH (08:25)
[2017-03-24] MEDS: Metoprolol 25mg tab ORAL SCH ×2 (08:25→20:46)
[2017-03-24 11:37] VITALS: BP 114/75
--- NOTE | 2017-03-24 15:39 | Physician Query ---
PLEASE COMPLETE DOCUMENT BEFORE SIGNING Dear Dr. Zion Echevarria Date: Well Driller/CDS Name: Deep VargasCK Well Driller/CDS Phone No.: [phone] Exercise your independent professional judgment when responding to the query. Questions asked do not imply a particular answer is desired or expected. We greatly appreciate your clarification on this issue. CLINICAL DOCUMENTATION STATES: "Sacrococcygeal stage 3 pressure ulcer with large scattered full thickness scar tissue to surrounding area and left and right buttocks" documented in the wound care nurse notes. CLINICAL FINDINGS SHOW: Wound Assessment : Wound Number: 1 Wound Present on Admission: Yes New Wound: No Status Change of Wound: No Wound Location Body Site: other - sacrococcygeal Wound Type: pressure ulcer Dyan Test: Does not Dyan Pressure Ulcer Stage: III - noted surrounding tissue with full thickness scar tissue noted mid sacrococcygeal area appearing stage 3 pressure ulcer at this time. Wound Thickness: Full Thickness Wound Length: 1.0 Wound Width: 2.0 Wound Depth: 0.3 Percent of Wound [place]/Red: 100 Wound Drainage Description: Serosanguineous Wound Drainage Amount: Scant Wound Drainage Odor: None/Absent Tissue Surrounding Wound: Macerated Wound General Appearance: Reddened, Draining Wound Comment #1 Sacrococcygeal stage 3 pressure ulcer with large scattered full thickness scar tissue to surrounding area and left and right buttocks. #2 Left and right lateral malleolus scar tissue. Do you agree with the finding of Sacrococcygeal Ulcer? PHYSICIAN RESPONSE: Condition Present on Admission: [] Yes [] No []Clinically Undeterminable Please also document in your Progress Notes and/or Discharge Summary and indicate if the condition was present on admission. Zion Echevarria MD Date/Time [facility]
[2017-03-24 15:51] VITALS: BP 103/71
[2017-03-24] MEDS: Xarelto 10mg tab ORAL SCH (16:30)
--- NOTE | 2017-03-24 16:46 | Cardiac Electrophysiology PN ---
Assessment/Plan Status Narrative Technically difficult study due to poor acoustical windows. Mild left ventricular enlargement. Mild global left ventricular hypokinesis. Left ventricular ejection fraction estimated to be 50-55%. No evidence of left ventricular hypertrophy. No evidence of pericardial or pleural effusion. Moderate bi-atrial enlargement by 2D. Focal aortic valve sclerosis with adequate cusp excursion. Thickened mitral valve leaflets with normal excursion. Mild mitral annulus and aortic root calcification. Pulmonic valve not well visualized. Normal tricuspid valve structure. IVC dilated at 2.2 cm minimal collapse with respiration. Probable pacemaker wire present in the right side chambers. Assessment/Plan 1. Paroxysmal atrial fibrillation. Continue Metoprolol 25 bid and Xarelto 20 mg daily. 2. Status post [employer] pacemaker implantation. Pacemaker interrogation in office Nl Fx 3. Diastolic congestive heart failure. Ejection fraction is 55%. Continue Lasix to 40 mg IV daily, Metoprolol 4. Chronic obstructive pulmonary disease. 5. Hepatitis C. 6. Hypertension, on Lopressor 25 bid, Lasix, and hydralazine. 7. Bilateral lower extremity edema. Onn Lasix. Refused lower extremity Doppler. ABIODUN RN Subjective Subjective Feeling better. No chest pain or SOB.Off tele. Objective Last 24 Hour Vital Signs Date Time Temp Pulse Resp B/P (MAP) Pulse Ox O2 Delivery O2 Flow Rate FiO2 03/24/17 15:51 97.8 76 20 103/71 99 Nasal Cannula 2.0 03/24/17 12:00 114/75 03/24/17 11:37 97.5 71 21 114/75 98 Nasal Cannula 2.0 03/24/17 10:00 70 18 Nasal Cannula 2.0 28 03/24/17 10:00 Nasal Cannula 2.0 28 03/24/17 10:00 97 Nasal Cannula 2.0 28 03/24/17 08:25 16 108/66 03/24/17 08:21 97.0 76 21 108/66 100 Room Air 03/24/17 06:00 118/60 03/24/17 04:00 97.5 85 21 118/60 100 03/24/17 04:00 100 Nasal Cannula 2.0 03/24/17 00:00 97.3 74 21 126/77 100 03/24/17 00:00 100 Nasal Cannula 2.0 03/24/17 00:00 112/73 03/23/17 21:00 75 112/73 03/23/17 20:00 97.5 75 21 112/73 100 03/23/17 20:00 100 Nasal Cannula 2.0 03/23/17 19:00 Nasal Cannula 2.0 28 03/23/17 19:00 97 Nasal Cannula 2.0 28 03/23/17 19:00 72 18 Nasal Cannula 2.0 28 03/23/17 17:15 111/68 Laboratory Tests Test 03/24/17 05:20 White Blood Count 6.6 K/UL (4.8-10.8) Red Blood Count 4.63 M/UL (4.20-5.40) Hemoglobin 13.1 G/DL (12.0-16.0) Hematocrit 38.9 % (37.0-47.0) Mean Corpuscular Volume 84 FL (80-99) Mean Corpuscular Hemoglobin 28.2 PG (27.0-31.0) Mean Corpuscular Hemoglobin Concent 33.6 G/DL (32.0-36.0) Red Cell Distribution Width 14.0 % (11.6-14.8) Platelet Count 210 K/UL (150-450) Mean Platelet Volume 8.2 FL (6.5-10.1) Neutrophils (%) (Auto) 52.8 % (45.0-75.0) Lymphocytes (%) (Auto) 32.8 % (20.0-45.0) Monocytes (%) (Auto) 8.5 % (1.0-10.0) Eosinophils (%) (Auto) 4.4 % (0.0-3.0) H Basophils (%) (Auto) 1.6 % (0.0-2.0) Sodium Level 142 MMOL/L (136-145) Potassium Level 3.9 MMOL/L (3.5-5.1) Chloride Level 102 MMOL/L (98-107) Carbon Dioxide Level 33 MMOL/L (21-32) H Anion Gap 7 mmol/L (5-15) Blood Urea Nitrogen 20 mg/dL (7-18) H Creatinine 0.7 MG/DL (0.55-1.30) Estimat Glomerular Filtration Rate mL/min (>60) Glucose Level 111 MG/DL (74-106) H Calcium Level 9.5 MG/DL (8.5-10.1) Objective HEAD AND NECK: Showed no JVD. LUNGS: Decreased breath sounds. CARDIOVASCULAR: Regular S1 and S2 with no gallop or murmur. ABDOMEN: Soft and nontender. EXTREMITIES: She has 2+ pitting edema. SKIN: The pacemaker is left subclavian. JAMAAL LAWS Mar 24, 2017 16:46
--- NOTE | 2017-03-24 16:56 | Pulmonology Progress Note ---
Assessment/Plan Problems: (1) CHF (congestive heart failure) (2) COPD (chronic obstructive pulmonary disease) (3) Diabetes mellitus, type II (4) Generalized weakness (5) Pacemaker (6) Hepatitis C (7) HTN (hypertension) Assessment/Plan repeat cxr and bnp in am on lasix f/u cardio recommendations increase analgesics respiratory treatment check electrolytes titrate fi2 to sat of 92% PT Subjective ROS Limited/Unobtainable: No Constitutional: Reports: no symptoms HEENT: Repors: no symptoms Allergies: Coded Allergies: ERYTHROMYCIN BASE (Verified Allergy, Intermediate, 08/28/16) MEPERIDINE (Verified Allergy, Unknown, 08/28/16) PENICILLINS (Verified Allergy, Unknown, 03/12/17) Tolerated Cefepime, Ceftriaxone, Keflex Objective Last 24 Hour Vital Signs Date Time Temp Pulse Resp B/P (MAP) Pulse Ox O2 Delivery O2 Flow Rate FiO2 03/24/17 15:51 97.8 76 20 103/71 99 Nasal Cannula 2.0 03/24/17 12:00 114/75 03/24/17 11:37 97.5 71 21 114/75 98 Nasal Cannula 2.0 03/24/17 10:00 70 18 Nasal Cannula 2.0 28 03/24/17 10:00 Nasal Cannula 2.0 28 03/24/17 10:00 97 Nasal Cannula 2.0 28 03/24/17 08:25 16 108/66 03/24/17 08:21 97.0 76 21 108/66 100 Room Air 03/24/17 06:00 118/60 03/24/17 04:00 97.5 85 21 118/60 100 03/24/17 04:00 100 Nasal Cannula 2.0 03/24/17 00:00 97.3 74 21 126/77 100 03/24/17 00:00 100 Nasal Cannula 2.0 03/24/17 00:00 112/73 03/23/17 21:00 75 112/73 03/23/17 20:00 97.5 75 21 112/73 100 03/23/17 20:00 100 Nasal Cannula 2.0 03/23/17 19:00 Nasal Cannula 2.0 28 03/23/17 19:00 97 Nasal Cannula 2.0 28 03/23/17 19:00 72 18 Nasal Cannula 2.0 28 03/23/17 17:15 111/68 Objective General Appearance: WD/WN HEENT: normocephalic, atraumatic Respiratory/Chest: chest wall non-tender, lungs clear Breasts: no masses Cardiovascular: normal peripheral pulses Abdomen: normal bowel sounds, soft, non tender Genitourinary: normal external genitalia Skin: no rash Laboratory Tests 03/24/17 05:20: White Blood Count 6.6, Red Blood Count 4.63, Hemoglobin 13.1, Hematocrit 38.9, Mean Corpuscular Volume 84, Mean Corpuscular Hemoglobin 28.2, Mean Corpuscular Hemoglobin Concent 33.6, Red Cell Distribution Width 14.0, Platelet Count 210, Mean Platelet Volume 8.2, Neutrophils (%) (Auto) 52.8, Lymphocytes (%) (Auto) 32.8, Monocytes (%) (Auto) 8.5, Eosinophils (%) (Auto) 4.4H, Basophils (%) (Auto ) 1.6, Sodium Level 142, Potassium Level 3.9, Chloride Level 102, Carbon Dioxide Level 33H, Anion Gap 7, Blood Urea Nitrogen 20H, Creatinine 0.7, Estimat Glomerular Filtration Rate , Glucose Level 111H, Calcium Level 9.5 Current Medications Medications (Trade) Dose Ordered Sig/Joann Route PRN Reason Start Time Stop Time Status Last Admin Dose Admin Acetaminophen (Tylenol) 650 mg Q4H PRN ORAL Fever 03/22/17 16:15 04/19/17 20:14 Acetaminophen/ Hydrocodone Bitart ([place] 5/325) 1 tab Q6H PRN ORAL For Pain 03/22/17 17:30 03/29/17 11:29 Albuterol/ Ipratropium (Albuterol/ Ipratropium) 3 ml Q4H PRN HHN Shortness of Breath 03/22/17 17:00 03/27/17 16:59 Atorvastatin Calcium (Lipitor) 10 mg BEDTIME ORAL 03/22/17 21:00 04/19/17 20:59 03/23/17 21:08 Cefdinir (Cefdinir) 300 mg Q12HR ORAL 03/23/17 11:00 03/30/17 10:59 03/24/17 08:24 Dextrose (Dextrose 50%) STAT PRN IV Hypoglycemia 03/22/17 20:15 04/19/17 20:14 Furosemide (Lasix) 40 mg DAILY IV 03/24/17 09:00 04/19/17 21:59 03/24/17 08:24 Gabapentin (Neurontin) 300 mg BID ORAL 03/22/17 18:00 04/20/17 08:59 03/24/17 08:24 Hydralazine HCl (Apresoline) 25 mg EVERY 6 HOURS ORAL 03/22/17 18:00 04/20/17 05:59 03/23/17 17:15 Insulin Aspart (NovoLOG) BEFORE MEALS AND HS SUBQ 03/22/17 16:30 04/19/17 20:59 03/24/17 16:34 Magnesium Oxide (Mag-Ox 400mg) 400 mg BID ORAL 03/23/17 21:00 04/22/17 20:59 03/24/17 08:25 Memantine (Namenda) 5 mg BID ORAL 03/22/17 18:00 04/20/17 08:59 03/24/17 08:24 Metoprolol Tartrate (Lopressor) 25 mg Q12HR ORAL 03/23/17 21:00 04/22/17 20:59 Montelukast Sodium (Singulair) 10 mg DAILY ORAL 03/23/17 09:00 04/20/17 08:59 03/24/17 08:25 Ondansetron HCl (Zofran) 4 mg Q6H PRN IVP Nausea & Vomiting 03/22/17 20:15 04/19/17 20:14 Pantoprazole (Protonix) 40 mg ACBREAKFAST ORAL 03/23/17 06:30 04/20/17 08:59 03/24/17 06:14 Polyethylene Glycol (Miralax) 17 gm DAILYPRN PRN ORAL Constipation 03/22/17 20:15 04/19/17 20:14 Rivaroxaban (Xarelto) 20 mg QPM ORAL 03/22/17 16:30 04/20/17 16:29 03/24/17 16:30 Spironolactone (Aldactone) 25 mg DAILY ORAL 03/23/17 09:00 04/20/17 08:59 03/24/17 08:25 Temazepam (Restoril) 15 mg HSPRN PRN ORAL Insomnia 03/22/17 20:15 03/27/17 20:14 ZARRABI,MIRALI Mar 24, 2017 16:56
[2017-03-24] MEDS: Norco 5mg/325mg tab ORAL PRN (18:44)
--- NOTE | 2017-03-24 18:57 | Internal Med Progress Note ---
Subjective Date of Service: Mar 24, 2017 Physician Name VázquezChema Attending Physician Zion Echevarria MD Current Medications Medications (Trade) Dose Ordered Sig/Joann Route PRN Reason Start Time Stop Time Status Last Admin Dose Admin Acetaminophen (Tylenol) 650 mg Q4H PRN ORAL Fever 03/22/17 16:15 04/19/17 20:14 Acetaminophen/ Hydrocodone Bitart ([place] 5/325) 1 tab Q6H PRN ORAL For Pain 03/22/17 17:30 03/29/17 11:29 03/24/17 18:44 Albuterol/ Ipratropium (Albuterol/ Ipratropium) 3 ml Q4H PRN HHN Shortness of Breath 03/22/17 17:00 03/27/17 16:59 Atorvastatin Calcium (Lipitor) 10 mg BEDTIME ORAL 03/22/17 21:00 04/19/17 20:59 03/23/17 21:08 Cefdinir (Cefdinir) 300 mg Q12HR ORAL 03/23/17 11:00 03/30/17 10:59 03/24/17 08:24 Dextrose (Dextrose 50%) STAT PRN IV Hypoglycemia 03/22/17 20:15 04/19/17 20:14 Furosemide (Lasix) 40 mg DAILY IV 03/24/17 09:00 04/19/17 21:59 03/24/17 08:24 Gabapentin (Neurontin) 300 mg BID ORAL 03/22/17 18:00 04/20/17 08:59 03/24/17 17:22 Hydralazine HCl (Apresoline) 25 mg EVERY 6 HOURS ORAL 03/22/17 18:00 04/20/17 05:59 03/23/17 17:15 Insulin Aspart (NovoLOG) BEFORE MEALS AND HS SUBQ 03/22/17 16:30 04/19/17 20:59 03/24/17 16:34 Magnesium Oxide (Mag-Ox 400mg) 400 mg BID ORAL 03/23/17 21:00 04/22/17 20:59 03/24/17 17:22 Memantine (Namenda) 5 mg BID ORAL 03/22/17 18:00 04/20/17 08:59 03/24/17 17:22 Metoprolol Tartrate (Lopressor) 25 mg Q12HR ORAL 03/23/17 21:00 04/22/17 20:59 Montelukast Sodium (Singulair) 10 mg DAILY ORAL 03/23/17 09:00 04/20/17 08:59 03/24/17 08:25 Ondansetron HCl (Zofran) 4 mg Q6H PRN IVP Nausea & Vomiting 03/22/17 20:15 04/19/17 20:14 Pantoprazole (Protonix) 40 mg ACBREAKFAST ORAL 03/23/17 06:30 04/20/17 08:59 03/24/17 06:14 Polyethylene Glycol (Miralax) 17 gm DAILYPRN PRN ORAL Constipation 03/22/17 20:15 04/19/17 20:14 Rivaroxaban (Xarelto) 20 mg QPM ORAL 03/22/17 16:30 04/20/17 16:29 03/24/17 16:30 Spironolactone (Aldactone) 25 mg DAILY ORAL 03/23/17 09:00 04/20/17 08:59 03/24/17 08:25 Temazepam (Restoril) 15 mg HSPRN PRN ORAL Insomnia 03/22/17 20:15 03/27/17 20:14 Allergies: Coded Allergies: ERYTHROMYCIN BASE (Verified Allergy, Intermediate, 08/28/16) MEPERIDINE (Verified Allergy, Unknown, 08/28/16) PENICILLINS (Verified Allergy, Unknown, 03/12/17) Tolerated Cefepime, Ceftriaxone, Keflex ROS Limited/Unobtainable: No Constitutional: Reports: no symptoms HEENT: Reports: no symptoms Cardiovascular: Reports: no symptoms Respiratory: Reports: shortness of breath Gastrointestinal/Abdominal: Reports: no symptoms Genitourinary: Reports: no symptoms Neurologic/Psychiatric: Reports: no symptoms Subjective 76 YO F admitted with shortness of breath and kane heart failure. Cover for Int Med-Dr Echevarria. Patient appealing discharge to Medicare-see disease case manager note.. Objective Last Vital Signs Date Time Temp Pulse Resp B/P (MAP) Pulse Ox O2 Delivery O2 Flow Rate FiO2 03/24/17 17:22 103/71 03/24/17 15:51 97.8 76 20 99 Nasal Cannula 2.0 03/24/17 10:00 28 Laboratory Tests Test 03/24/17 05:20 White Blood Count 6.6 K/UL (4.8-10.8) Red Blood Count 4.63 M/UL (4.20-5.40) Hemoglobin 13.1 G/DL (12.0-16.0) Hematocrit 38.9 % (37.0-47.0) Mean Corpuscular Volume 84 FL (80-99) Mean Corpuscular Hemoglobin 28.2 PG (27.0-31.0) Mean Corpuscular Hemoglobin Concent 33.6 G/DL (32.0-36.0) Red Cell Distribution Width 14.0 % (11.6-14.8) Platelet Count 210 K/UL (150-450) Mean Platelet Volume 8.2 FL (6.5-10.1) Neutrophils (%) (Auto) 52.8 % (45.0-75.0) Lymphocytes (%) (Auto) 32.8 % (20.0-45.0) Monocytes (%) (Auto) 8.5 % (1.0-10.0) Eosinophils (%) (Auto) 4.4 % (0.0-3.0) H Basophils (%) (Auto) 1.6 % (0.0-2.0) Sodium Level 142 MMOL/L (136-145) Potassium Level 3.9 MMOL/L (3.5-5.1) Chloride Level 102 MMOL/L (98-107) Carbon Dioxide Level 33 MMOL/L (21-32) H Anion Gap 7 mmol/L (5-15) Blood Urea Nitrogen 20 mg/dL (7-18) H Creatinine 0.7 MG/DL (0.55-1.30) Estimat Glomerular Filtration Rate mL/min (>60) Glucose Level 111 MG/DL (74-106) H Calcium Level 9.5 MG/DL (8.5-10.1) Intake and Output 03/24/17 03/25/17 19:00 07:00 Intake Total 520 ml Balance 520 ml Intake Oral 520 ml # Voids 3 Objective Objective General: No acute distress, awake and alert HEENT: NCAT, sclera anicteric, PERRL, EOMI. Neck: Supple, no significant jugular venous distention, Lungs: fair inspiratory effort, clear to auscultation bilaterally, decrease air at bases, no Wheeze or Rales. Heart: Irregular rate and rhythm, normal S1/S2, no murmurs, Pacemaker @ [facility]. Abdomen: soft, nontender, nondistended. Normoactive bowel sounds. / Rectal: Refused and deferred. Extremities: No Cyanosis , clubbing or edema. Neuro: A&O x 3, Able to move all extremities slowly. Skin: warm, no rashes Psych: Normal mood and affect Assessment/Plan Assessment/Plan Assessment/Plan 1. Paroxysmal atrial fibrillation. 2. Status post [employer] pacemaker implantation. 3. Acute on chronic Combined systolic and diastolic congestive heart failure. Ejection fraction is 40% to 45%. 4. Chronic obstructive pulmonary disease. 5. Hepatitis C. 6. Hypertension, 7. Bilateral lower extremity edema. 8. Morbid obesity 9. Failure to thrive. 10. Diabetes type 2. 11. Dyslipidemia. PLAN: discuss with patient regarding plan of care and discharge planning to SNF, [facility] Monitor Labs Xarelto PO PT mobility DC Telemetry DC planning-patient appealing discharge to Medicare. CHEMA VÁZQUEZ Mar 24, 2017 18:57
[2017-03-24 20:00] VITALS: BP 126/75
[2017-03-25] VITALS: BP 106/64
[2017-03-25] MEDS: HydrALAZINE 25mg tab ORAL SCH ×4 (00:13→18:00)
[2017-03-25] MEDS: Norco 5mg/325mg tab ORAL PRN (03:07)
[2017-03-25 04:00] VITALS: BP 110/72
[2017-03-25] MEDS: NovoLOG Insulin Flexpen SUBQ SCH ×4 (06:11→22:20)
[2017-03-25 07:08] LABS: BASOPHILS % (AUTO) 1.1 % (0.0-2.0); EOSINOPHILS % (AUTO) 4.7 % (0.0-3.0); LYMPHOCYTES % (AUTO) 42.3 % (20.0-45.0); MEAN CORPUSCULAR HEMOGLOBIN 25.4 PG (27.0-31.0); MEAN CORPUSCULAR HGB CONC 30.3 G/DL (32.0-36.0); MEAN CORPUSCULAR VOLUME 84 FL (80-99); MONOCYTES % (AUTO) 10.2 % (1.0-10.0); NEUTROPHILS % (AUTO) 41.8 % (45.0-75.0); PLATELET COUNT 208 K/UL (150-450); RED BLOOD COUNT 4.18 M/UL (4.20-5.40); RED CELL DISTRIBUTION WIDTH 13.6 % (11.6-14.8); WHITE BLOOD COUNT 5.8 K/UL (4.8-10.8)
[2017-03-25 07:30] LABS: ALANINE AMINOTRANSFERASE 13 U/L (12-78); ALBUMIN/GLOBULIN RATIO 0.7 (1.0-2.7); ANION GAP 4 mmol/L (5-15); ASPARTATE AMINO TRANSFERASE 14 U/L (15-37); CALCIUM 8.9 MG/DL (8.5-10.1); CARBON DIOXIDE 34 MMOL/L (21-32); CHLORIDE 105 MMOL/L (98-107); CREATININE 0.8 MG/DL (0.55-1.30); MAGNESIUM 1.8 MG/DL (1.8-2.4); PHOSPHORUS 3.6 MG/DL (2.5-4.9); POTASSIUM 4.1 MMOL/L (3.5-5.1); SODIUM 142 MMOL/L (136-145); TOTAL PROTEIN 7.3 G/DL (6.4-8.2)
[2017-03-25 08:00] VITALS: BP 102/62
[2017-03-25] MEDS: Metoprolol 25mg tab ORAL SCH ×2 (09:00→22:18)
[2017-03-25] MEDS: Spironolactone 25mg tab ORAL SCH (09:10)
[2017-03-25] MEDS: Montelukast 10mg tablet ORAL SCH (09:10)
[2017-03-25] MEDS: Magnesium Oxide 400mg tab ORAL SCH ×2 (09:10→17:14)
[2017-03-25] MEDS: Cefdinir 300mg cap ORAL SCH ×2 (09:10→22:18)
[2017-03-25] MEDS: Memantine 5 MG TAB ORAL SCH ×2 (09:10→17:14)
--- NOTE | 2017-03-25 11:32 | Diagnostic Imaging Report ---
Indication: Dyspnea Technique: One view of the chest Comparison: 03/20/2017 Findings: Interim near complete resolution of previously demonstrated right mid and lower lung infiltrate, with only some residual patchy disease at the right lung base. Is also improving parenchymal disease of the left lung base. Band of atelectasis or scarring is again demonstrated in the left midlung. Left chest pacemaker remains. Heart is borderline enlarged Impression: Nearly resolved right middle lower lung infiltrate, minimal residual. Improved left basilar parenchymal disease, as well
[2017-03-25 12:00] VITALS: BP 112/67
--- NOTE | 2017-03-25 12:15 | Cardiac Electrophysiology PN ---
Assessment/Plan Status Narrative Technically difficult study due to poor acoustical windows. Mild left ventricular enlargement. Mild global left ventricular hypokinesis. Left ventricular ejection fraction estimated to be 50-55%. No evidence of left ventricular hypertrophy. No evidence of pericardial or pleural effusion. Moderate bi-atrial enlargement by 2D. Focal aortic valve sclerosis with adequate cusp excursion. Thickened mitral valve leaflets with normal excursion. Mild mitral annulus and aortic root calcification. Pulmonic valve not well visualized. Normal tricuspid valve structure. IVC dilated at 2.2 cm minimal collapse with respiration. Probable pacemaker wire present in the right side chambers. Assessment/Plan 1. Paroxysmal atrial fibrillation. Continue Metoprolol 25 bid and Xarelto 20 mg daily. 2. Status post [employer] pacemaker implantation. Pacemaker interrogation in office Nl Fx 3. Diastolic congestive heart failure. Ejection fraction is 55%. Continue Lasix to 40 mg IV daily, Metoprolol 4. Chronic obstructive pulmonary disease. 5. Hepatitis C. 6. Hypertension, on Lopressor 25 bid, Lasix, and hydralazine 25 q 6hr. 7. Bilateral lower extremity edema. Onn Lasix. Refused lower extremity Doppler. ABIODUN RN Going to [facility] today Subjective Subjective Feeling better. No chest pain or SOB. No events Objective Last 24 Hour Vital Signs Date Time Temp Pulse Resp B/P (MAP) Pulse Ox O2 Delivery O2 Flow Rate FiO2 03/25/17 08:05 Nasal Cannula 2.0 03/25/17 08:05 100 Nasal Cannula 2.0 03/25/17 08:05 72 18 Nasal Cannula 2.0 03/25/17 08:00 96.4 70 18 102/62 99 03/25/17 06:10 103/03/25/17 04:00 96.4 67 18 110/72 99 03/25/17 04:00 Nasal Cannula 2.0 03/25/17 00:13 103/71 03/25/17 00:00 97.9 69 18 106/64 99 03/25/17 00:00 Nasal Cannula 2.0 03/24/17 20:46 76 103/71 03/24/17 20:00 Nasal Cannula 2.0 03/24/17 20:00 97.9 74 19 126/75 94 03/24/17 19:15 98 Nasal Cannula 2.0 03/24/17 19:15 Nasal Cannula 2.0 28 03/24/17 19:11 75 18 Nasal Cannula 2.0 28 03/24/17 17:22 103/71 03/24/17 15:51 97.8 76 20 103/71 99 Nasal Cannula 2.0 Laboratory Tests Test 03/25/17 05:40 White Blood Count 5.8 K/UL (4.8-10.8) Red Blood Count 4.18 M/UL (4.20-5.40) L Hemoglobin 10.6 G/DL (12.0-16.0) L Hematocrit 35.0 % (37.0-47.0) L Mean Corpuscular Volume 84 FL (80-99) Mean Corpuscular Hemoglobin 25.4 PG (27.0-31.0) L Mean Corpuscular Hemoglobin Concent 30.3 G/DL (32.0-36.0) L Red Cell Distribution Width 13.6 % (11.6-14.8) Platelet Count 208 K/UL (150-450) Mean Platelet Volume 7.0 FL (6.5-10.1) Neutrophils (%) (Auto) 41.8 % (45.0-75.0) L Lymphocytes (%) (Auto) 42.3 % (20.0-45.0) Monocytes (%) (Auto) 10.2 % (1.0-10.0) H Eosinophils (%) (Auto) 4.7 % (0.0-3.0) H Basophils (%) (Auto) 1.1 % (0.0-2.0) Sodium Level 142 MMOL/L (136-145) Potassium Level 4.1 MMOL/L (3.5-5.1) Chloride Level 105 MMOL/L (98-107) Carbon Dioxide Level 34 MMOL/L (21-32) H Anion Gap 4 mmol/L (5-15) L Blood Urea Nitrogen 22 mg/dL (7-18) H Creatinine 0.8 MG/DL (0.55-1.30) Estimat Glomerular Filtration Rate mL/min (>60) Glucose Level 127 MG/DL (74-106) H Calcium Level 8.9 MG/DL (8.5-10.1) Phosphorus Level 3.6 MG/DL (2.5-4.9) Magnesium Level 1.8 MG/DL (1.8-2.4) Total Bilirubin 0.3 MG/DL (0.2-1.0) Aspartate Amino Transf (AST/SGOT) 14 U/L (15-37) L Alanine Aminotransferase (ALT/SGPT) 13 U/L (12-78) Alkaline Phosphatase 77 U/L (46-116) Pro-B-Type Natriuretic Peptide 1070 pg/mL (0-125) H Total Protein 7.3 G/DL (6.4-8.2) Albumin 3.1 G/DL (3.4-5.0) L Globulin 4.2 g/dL Albumin/Globulin Ratio 0.7 (1.0-2.7) L Objective HEAD AND NECK: Showed no JVD. LUNGS: Decreased breath sounds. CARDIOVASCULAR: Regular S1 and S2 with no gallop or murmur. The pacemaker is left subclavian. ABDOMEN: Soft and nontender. EXTREMITIES: She has 2+ pitting edema. JAMAAL LAWS Mar 25, 2017 12:15
--- NOTE | 2017-03-25 13:18 | Internal Med Progress Note ---
Subjective Date of Service: Mar 25, 2017 Physician Name Vázquez,Chema Attending Physician Zion Echevarria MD Current Medications Medications (Trade) Dose Ordered Sig/Joann Route PRN Reason Start Time Stop Time Status Last Admin Dose Admin Acetaminophen (Tylenol) 650 mg Q4H PRN ORAL Fever 03/22/17 16:15 04/19/17 20:14 Acetaminophen/ Hydrocodone Bitart ([place] 5/325) 1 tab Q6H PRN ORAL For Pain 03/22/17 17:30 03/29/17 11:29 03/25/17 03:07 Albuterol/ Ipratropium (Albuterol/ Ipratropium) 3 ml Q4H PRN HHN Shortness of Breath 03/22/17 17:00 03/27/17 16:59 Atorvastatin Calcium (Lipitor) 10 mg BEDTIME ORAL 03/22/17 21:00 04/19/17 20:59 03/24/17 20:46 Cefdinir (Cefdinir) 300 mg Q12HR ORAL 03/23/17 11:00 03/30/17 10:59 03/25/17 09:10 Dextrose (Dextrose 50%) STAT PRN IV Hypoglycemia 03/22/17 20:15 04/19/17 20:14 Furosemide (Lasix) 40 mg DAILY IV 03/24/17 09:00 04/19/17 21:59 03/24/17 08:24 Gabapentin (Neurontin) 300 mg BID ORAL 03/22/17 18:00 04/20/17 08:59 03/25/17 09:10 Hydralazine HCl (Apresoline) 25 mg EVERY 6 HOURS ORAL 03/22/17 18:00 04/20/17 05:59 03/25/17 06:10 Insulin Aspart (NovoLOG) BEFORE MEALS AND HS SUBQ 03/22/17 16:30 04/19/17 20:59 03/25/17 12:18 Magnesium Oxide (Mag-Ox 400mg) 400 mg BID ORAL 03/23/17 21:00 04/22/17 20:59 03/25/17 09:10 Memantine (Namenda) 5 mg BID ORAL 03/22/17 18:00 04/20/17 08:59 03/25/17 09:10 Metoprolol Tartrate (Lopressor) 25 mg Q12HR ORAL 03/23/17 21:00 04/22/17 20:59 03/24/17 20:46 Montelukast Sodium (Singulair) 10 mg DAILY ORAL 03/23/17 09:00 04/20/17 08:59 03/25/17 09:10 Ondansetron HCl (Zofran) 4 mg Q6H PRN IVP Nausea & Vomiting 03/22/17 20:15 04/19/17 20:14 Pantoprazole (Protonix) 40 mg ACBREAKFAST ORAL 03/23/17 06:30 04/20/17 08:59 03/25/17 06:10 Polyethylene Glycol (Miralax) 17 gm DAILYPRN PRN ORAL Constipation 03/22/17 20:15 04/19/17 20:14 Rivaroxaban (Xarelto) 20 mg QPM ORAL 03/22/17 16:30 04/20/17 16:29 03/24/17 16:30 Spironolactone (Aldactone) 25 mg DAILY ORAL 03/23/17 09:00 04/20/17 08:59 03/25/17 09:10 Temazepam (Restoril) 15 mg HSPRN PRN ORAL Insomnia 03/22/17 20:15 03/27/17 20:14 Allergies: Coded Allergies: ERYTHROMYCIN BASE (Verified Allergy, Intermediate, 08/28/16) MEPERIDINE (Verified Allergy, Unknown, 08/28/16) PENICILLINS (Verified Allergy, Unknown, 03/12/17) Tolerated Cefepime, Ceftriaxone, Keflex ROS Limited/Unobtainable: No Constitutional: Reports: no symptoms HEENT: Reports: no symptoms Cardiovascular: Reports: no symptoms Respiratory: Reports: shortness of breath Gastrointestinal/Abdominal: Reports: no symptoms Genitourinary: Reports: no symptoms Neurologic/Psychiatric: Reports: no symptoms Subjective 76 YO F admitted with shortness of breath and kane heart failure. Cover for Int Med-Dr Echevarria. Patient appealing discharge to Medicare-see correctional case manager note.. Objective Last Vital Signs Date Time Temp Pulse Resp B/P (MAP) Pulse Ox O2 Delivery O2 Flow Rate FiO2 03/25/17 12:00 97.0 64 18 112/67 03/25/17 08:05 Nasal Cannula 2.0 28 03/25/17 08:05 100 Laboratory Tests Test 03/25/17 05:40 White Blood Count 5.8 K/UL (4.8-10.8) Red Blood Count 4.18 M/UL (4.20-5.40) L Hemoglobin 10.6 G/DL (12.0-16.0) L Hematocrit 35.0 % (37.0-47.0) L Mean Corpuscular Volume 84 FL (80-99) Mean Corpuscular Hemoglobin 25.4 PG (27.0-31.0) L Mean Corpuscular Hemoglobin Concent 30.3 G/DL (32.0-36.0) L Red Cell Distribution Width 13.6 % (11.6-14.8) Platelet Count 208 K/UL (150-450) Mean Platelet Volume 7.0 FL (6.5-10.1) Neutrophils (%) (Auto) 41.8 % (45.0-75.0) L Lymphocytes (%) (Auto) 42.3 % (20.0-45.0) Monocytes (%) (Auto) 10.2 % (1.0-10.0) H Eosinophils (%) (Auto) 4.7 % (0.0-3.0) H Basophils (%) (Auto) 1.1 % (0.0-2.0) Sodium Level 142 MMOL/L (136-145) Potassium Level 4.1 MMOL/L (3.5-5.1) Chloride Level 105 MMOL/L (98-107) Carbon Dioxide Level 34 MMOL/L (21-32) H Anion Gap 4 mmol/L (5-15) L Blood Urea Nitrogen 22 mg/dL (7-18) H Creatinine 0.8 MG/DL (0.55-1.30) Estimat Glomerular Filtration Rate mL/min (>60) Glucose Level 127 MG/DL (74-106) H Calcium Level 8.9 MG/DL (8.5-10.1) Phosphorus Level 3.6 MG/DL (2.5-4.9) Magnesium Level 1.8 MG/DL (1.8-2.4) Total Bilirubin 0.3 MG/DL (0.2-1.0) Aspartate Amino Transf (AST/SGOT) 14 U/L (15-37) L Alanine Aminotransferase (ALT/SGPT) 13 U/L (12-78) Alkaline Phosphatase 77 U/L (46-116) Pro-B-Type Natriuretic Peptide 1070 pg/mL (0-125) H Total Protein 7.3 G/DL (6.4-8.2) Albumin 3.1 G/DL (3.4-5.0) L Globulin 4.2 g/dL Albumin/Globulin Ratio 0.7 (1.0-2.7) L Objective Objective General: No acute distress, awake and alert HEENT: NCAT, sclera anicteric, PERRL, EOMI. Neck: Supple, no significant jugular venous distention, Lungs: fair inspiratory effort, clear to auscultation bilaterally, decrease air at bases, no Wheeze or Rales. Heart: Irregular rate and rhythm, normal S1/S2, no murmurs, Pacemaker @ [employer]. Abdomen: soft, nontender, nondistended. Normoactive bowel sounds. / Rectal: Refused and deferred. Extremities: No Cyanosis , clubbing or edema. Neuro: A&O x 3, Able to move all extremities slowly. Skin: warm, no rashes Psych: Normal mood and affect Assessment/Plan Assessment/Plan Assessment/Plan 1. Paroxysmal atrial fibrillation. 2. Status post [employer] pacemaker implantation. 3. Acute on chronic Combined systolic and diastolic congestive heart failure. Ejection fraction is 40% to 45%. 4. Chronic obstructive pulmonary disease. 5. Hepatitis C. 6. Hypertension, 7. Bilateral lower extremity edema. 8. Morbid obesity 9. Failure to thrive. 10. Diabetes type 2. 11. Dyslipidemia. PLAN: discuss with patient regarding plan of care and discharge planning to SNF, [facility] Monitor Labs Xarelto PO PT mobility DC Telemetry DC planning-patient appealing discharge to Medicare. CHEMA VÁZQUEZ Mar 25, 2017 13:18
--- NOTE | 2017-03-25 14:58 | Physician Query ---
PLEASE COMPLETE DOCUMENT BEFORE SIGNING Dear Dr Echevarria, Please Answer The Query Before Signing. Dear Dr. Zion Echevarria Date: Wine Steward/Stewardess/CDS Name: Deep VargasCK Wine Steward/Stewardess/CDS Phone No.: [phone] Exercise your independent professional judgment when responding to the query. Questions asked do not imply a particular answer is desired or expected. We greatly appreciate your clarification on this issue. CLINICAL DOCUMENTATION STATES: "Sacrococcygeal stage 3 pressure ulcer with large scattered full thickness scar tissue to surrounding area and left and right buttocks" documented in the wound care nurse notes. CLINICAL FINDINGS SHOW: Wound Assessment : Wound Number: 1 Wound Present on Admission: Yes New Wound: No Status Change of Wound: No Wound Location Body Site: other - sacrococcygeal Wound Type: pressure ulcer Dyan Test: Does not Dyan Pressure Ulcer Stage: III - noted surrounding tissue with full thickness scar tissue noted mid sacrococcygeal area appearing stage 3 pressure ulcer at this time. Wound Thickness: Full Thickness Wound Length: 1.0 Wound Width: 2.0 Wound Depth: 0.3 Percent of Wound [place]/Red: 100 Wound Drainage Description: Serosanguineous Wound Drainage Amount: Scant Wound Drainage Odor: None/Absent Tissue Surrounding Wound: Macerated Wound General Appearance: Reddened, Draining Wound Comment #1 Sacrococcygeal stage 3 pressure ulcer with large scattered full thickness scar tissue to surrounding area and left and right buttocks. #2 Left and right lateral malleolus scar tissue. Do you agree with the finding of Sacrococcygeal Ulcer? PHYSICIAN RESPONSE: Condition Present on Admission: [] Yes [] No []Clinically Undeterminable Please also document in your Progress Notes and/or Discharge Summary and indicate if the condition was present on admission. Zion E[facility]varria MD Date/Time [facility]
[2017-03-25 16:00] VITALS: BP 112/67
[2017-03-25] MEDS: Xarelto 10mg tab ORAL SCH (17:14)
--- NOTE | 2017-03-25 18:11 | Pulmonology Progress Note ---
Assessment/Plan Problems: (1) CHF (congestive heart failure) (2) COPD (chronic obstructive pulmonary disease) (3) Diabetes mellitus, type II (4) Generalized weakness (5) Pacemaker (6) Hepatitis C (7) HTN (hypertension) Assessment/Plan diuresing well on 2 linters Nasal cannula on lasix f/u cardio recommendations increase analgesics respiratory treatment check electrolytes titrate fi2 to sat of 92% PT Subjective ROS Limited/Unobtainable: No Constitutional: Reports: no symptoms HEENT: Repors: no symptoms Respiratory: Reports: no symptoms Allergies: Coded Allergies: ERYTHROMYCIN BASE (Verified Allergy, Intermediate, 08/28/16) MEPERIDINE (Verified Allergy, Unknown, 08/28/16) PENICILLINS (Verified Allergy, Unknown, 03/12/17) Tolerated Cefepime, Ceftriaxone, Keflex Objective Last 24 Hour Vital Signs Date Time Temp Pulse Resp B/P (MAP) Pulse Ox O2 Delivery O2 Flow Rate FiO2 03/25/17 16:00 97.7 66 18 112/67 03/25/17 12:00 97.0 64 18 112/67 03/25/17 12:00 96/60 03/25/17 08:05 Nasal Cannula 2.0 03/25/17 08:05 100 Nasal Cannula 2.0 03/25/17 08:05 72 18 Nasal Cannula 2.0 28 03/25/17 08:00 96.4 70 18 102/62 99 03/25/17 06:10 103/71 03/25/17 04:00 96.4 67 18 110/72 99 03/25/17 04:00 Nasal Cannula 2.0 03/25/17 00:13 103/71 03/25/17 00:00 97.9 69 18 106/64 99 03/25/17 00:00 Nasal Cannula 2.0 03/24/17 20:46 76 103/71 03/24/17 20:00 Nasal Cannula 2.0 03/24/17 20:00 97.9 74 19 126/75 94 03/24/17 19:15 98 Nasal Cannula 2.0 28 03/24/17 19:15 Nasal Cannula 2.0 28 03/24/17 19:11 75 18 Nasal Cannula 2.0 28 Objective General Appearance: WD/WN HEENT: normocephalic, atraumatic Respiratory/Chest: chest wall non-tender, lungs clear Breasts: no masses Cardiovascular: normal peripheral pulses Abdomen: normal bowel sounds, soft, non tender Genitourinary: normal external genitalia Skin: no rash Laboratory Tests 03/25/17 05:40: White Blood Count 5.8, Red Blood Count 4.18L, Hemoglobin 10.6L, Hematocrit 35.0L , Mean Corpuscular Volume 84, Mean Corpuscular Hemoglobin 25.4L, Mean Corpuscular Hemoglobin Concent 30.3L, Red Cell Distribution Width 13.6, Platelet Count 208, Mean Platelet Volume 7.0, Neutrophils (%) (Auto) 41.8L, Lymphocytes (%) (Auto) 42.3, Monocytes (%) (Auto) 10.2H, Eosinophils (%) (Auto) 4.7H, Basophils (%) (Auto) 1.1, Sodium Level 142, Potassium Level 4.1, Chloride Level 105, Carbon Dioxide Level 34H, Anion Gap 4L, Blood Urea Nitrogen 22H, Creatinine 0.8, Estimat Glomerular Filtration Rate , Glucose Level 127H, Calcium Level 8.9, Phosphorus Level 3.6, Magnesium Level 1.8, Total Bilirubin 0.3, Aspartate Amino Transf (AST/SGOT) 14L, Alanine Aminotransferase (ALT/SGPT) 13, Alkaline Phosphatase 77, Pro-B-Type Natriuretic Peptide 1070H, Total Protein 7.3, Albumin 3.1L, Globulin 4.2, Albumin/Globulin Ratio 0.7L Current Medications Medications (Trade) Dose Ordered Sig/Joann Route PRN Reason Start Time Stop Time Status Last Admin Dose Admin Acetaminophen (Tylenol) 650 mg Q4H PRN ORAL Fever 03/22/17 16:15 04/19/17 20:14 Acetaminophen/ Hydrocodone Bitart ([place] 5/325) 1 tab Q6H PRN ORAL For Pain 03/22/17 17:30 03/29/17 11:29 03/25/17 03:07 Albuterol/ Ipratropium (Albuterol/ Ipratropium) 3 ml Q4H PRN HHN Shortness of Breath 03/22/17 17:00 03/27/17 16:59 Atorvastatin Calcium (Lipitor) 10 mg BEDTIME ORAL 03/22/17 21:00 04/19/17 20:59 03/24/17 20:46 Cefdinir (Cefdinir) 300 mg Q12HR ORAL 03/23/17 11:00 03/30/17 10:59 03/25/17 09:10 Dextrose (Dextrose 50%) STAT PRN IV Hypoglycemia 03/22/17 20:15 04/19/17 20:14 Furosemide (Lasix) 40 mg DAILY IV 03/24/17 09:00 04/19/17 21:59 03/24/17 08:24 Gabapentin (Neurontin) 300 mg BID ORAL 03/22/17 18:00 04/20/17 08:59 03/25/17 17:14 Hydralazine HCl (Apresoline) 25 mg EVERY 6 HOURS ORAL 03/22/17 18:00 04/20/17 05:59 03/25/17 06:10 Insulin Aspart (NovoLOG) BEFORE MEALS AND HS SUBQ 03/22/17 16:30 04/19/17 20:59 03/25/17 17:16 Magnesium Oxide (Mag-Ox 400mg) 400 mg BID ORAL 03/23/17 21:00 04/22/17 20:59 03/25/17 17:14 Memantine (Namenda) 5 mg BID ORAL 03/22/17 18:00 04/20/17 08:59 03/25/17 17:14 Metoprolol Tartrate (Lopressor) 25 mg Q12HR ORAL 03/23/17 21:00 04/22/17 20:59 03/24/17 20:46 Montelukast Sodium (Singulair) 10 mg DAILY ORAL 03/23/17 09:00 04/20/17 08:59 03/25/17 09:10 Ondansetron HCl (Zofran) 4 mg Q6H PRN IVP Nausea & Vomiting 03/22/17 20:15 04/19/17 20:14 Pantoprazole (Protonix) 40 mg ACBREAKFAST ORAL 03/23/17 06:30 04/20/17 08:59 03/25/17 06:10 Polyethylene Glycol (Miralax) 17 gm DAILYPRN PRN ORAL Constipation 03/22/17 20:15 04/19/17 20:14 Rivaroxaban (Xarelto) 20 mg QPM ORAL 03/22/17 16:30 04/20/17 16:29 03/25/17 17:14 Spironolactone (Aldactone) 25 mg DAILY ORAL 03/23/17 09:00 04/20/17 08:59 03/25/17 09:10 Temazepam (Restoril) 15 mg HSPRN PRN ORAL Insomnia 03/22/17 20:15 03/27/17 20:14 JONH RODRIGUEZ Mar 25, 2017 18:11
[2017-03-25 20:00] VITALS: BP 105/69
[2017-03-26] VITALS: BP 104/68
[2017-03-26] MEDS: HydrALAZINE 25mg tab ORAL SCH ×3 (00:28→12:52)
[2017-03-26 03:53] VITALS: BP 117/75
[2017-03-26] MEDS: NovoLOG Insulin Flexpen SUBQ SCH ×2 (06:15→11:30)
[2017-03-26 07:25] LABS: BASOPHILS % (AUTO) 1.2 % (0.0-2.0); EOSINOPHILS % (AUTO) 5.3 % (0.0-3.0); LYMPHOCYTES % (AUTO) 36.6 % (20.0-45.0); MEAN CORPUSCULAR HEMOGLOBIN 27.6 PG (27.0-31.0); MEAN CORPUSCULAR HGB CONC 32.6 G/DL (32.0-36.0); MEAN CORPUSCULAR VOLUME 85 FL (80-99); MEAN PLATELET VOLUME 8.4 FL (6.5-10.1); MONOCYTES % (AUTO) 9.4 % (1.0-10.0); NEUTROPHILS % (AUTO) 47.5 % (45.0-75.0); PLATELET COUNT 201 K/UL (150-450); RED CELL DISTRIBUTION WIDTH 14.2 % (11.6-14.8); WHITE BLOOD COUNT 5.4 K/UL (4.8-10.8)
[2017-03-26 07:55] LABS: ANION GAP 3 mmol/L (5-15); CALCIUM 9.4 MG/DL (8.5-10.1); CARBON DIOXIDE 33 MMOL/L (21-32); CHLORIDE 106 MMOL/L (98-107); CREATININE 0.8 MG/DL (0.55-1.30); POTASSIUM 4.3 MMOL/L (3.5-5.1); SODIUM 142 MMOL/L (136-145)
[2017-03-26 08:00] VITALS: BP 110/53
[2017-03-26] MEDS: Spironolactone 25mg tab ORAL SCH (08:51)
[2017-03-26] MEDS: Cefdinir 300mg cap ORAL SCH (08:51)
[2017-03-26] MEDS: Montelukast 10mg tablet ORAL SCH (08:51)
[2017-03-26] MEDS: Magnesium Oxide 400mg tab ORAL SCH (08:51)
[2017-03-26] MEDS: Metoprolol 25mg tab ORAL SCH (08:52)
[2017-03-26] MEDS: Memantine 5 MG TAB ORAL SCH (09:00)
--- NOTE | 2017-03-26 11:02 | Diagnostic Imaging Report ---
APPROVED REPORT CPT Code: 66967 Present Symptoms Lower Extremity Pain: Comments: Technically difficult, limited study due to bilateral contracture. Past History DVT :BilateralDate : 08/28/2015 Technically difficult, limited study due to bilateral contracture. RIGHT LEG: Venous imaging reveals a patent deep venous system. There is no evidence of thrombus within the femoral, popliteal or tibial segments. The greater saphenous vein is also within normal limits. Doppler indicates normal spontaneous flow within these segments. The mid to distal superficial femoral vein was not well visualized. LEFT LEG: Venous imaging reveals a patent deep venous system. There is no evidence of thrombus within the femoral, popliteal or tibial segments. The greater saphenous vein is also within normal limits. Doppler indicates normal spontaneous flow within these segments.
--- NOTE | 2017-03-26 11:04 | Cardiac Electrophysiology PN ---
Assessment/Plan Status Narrative Technically difficult study due to poor acoustical windows. Mild left ventricular enlargement. Mild global left ventricular hypokinesis. Left ventricular ejection fraction estimated to be 50-55%. No evidence of left ventricular hypertrophy. No evidence of pericardial or pleural effusion. Moderate bi-atrial enlargement by 2D. Focal aortic valve sclerosis with adequate cusp excursion. Thickened mitral valve leaflets with normal excursion. Mild mitral annulus and aortic root calcification. Pulmonic valve not well visualized. Normal tricuspid valve structure. IVC dilated at 2.2 cm minimal collapse with respiration. Probable pacemaker wire present in the right side chambers. Assessment/Plan 1. Paroxysmal atrial fibrillation. Continue Metoprolol 25 bid and Xarelto 20 mg daily. 2. Status post [employer] pacemaker implantation. Pacemaker interrogation in office Nl Fx 3. Diastolic congestive heart failure. Ejection fraction is 55%. Change Lasix to 40 mg po daily, Metoprolol 4. Chronic obstructive pulmonary disease. 5. Hepatitis C. 6. Hypertension, on Lopressor 25 bid, Lasix, and hydralazine 25 q 6hr. 7. Bilateral lower extremity edema. Onn Lasix. Refused lower extremity Doppler. 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 Going to [facility] today. Objective Last 24 Hour Vital Signs Date Time Temp Pulse Resp B/P (MAP) Pulse Ox O2 Delivery O2 Flow Rate FiO2 03/26/17 08:52 77 110/53 03/26/17 08:50 77 18 Nasal Cannula 2.0 28 03/26/17 08:50 Nasal Cannula 2.0 28 03/26/17 08:50 99 Nasal Cannula 2.0 28 03/26/17 08:00 97.0 70 18 110/53 100 03/26/17 06:14 117/75 03/26/17 03:53 96.6 77 18 117/75 98 03/26/17 00:28 105/69 03/26/17 00:00 97.7 68 18 104/68 100 03/25/17 22:18 66 105/69 03/25/17 20:00 96.4 66 18 105/69 100 03/25/17 20:00 Nasal Cannula 2.0 03/25/17 19:59 74 18 Nasal Cannula 2.0 03/25/17 19:59 Nasal Cannula 2.0 28 03/25/17 19:59 98 Nasal Cannula 2.0 28 03/25/17 18:00 03/25/17 16:00 97.7 66 18 03/25/17 12:00 97.0 64 18 03/25/17 12:00 96/60 Laboratory Tests Test 03/26/17 05:05 White Blood Count 5.4 K/UL (4.8-10.8) Red Blood Count 4.00 M/UL (4.20-5.40) L Hemoglobin 11.1 G/DL (12.0-16.0) L Hematocrit 34.0 % (37.0-47.0) L Mean Corpuscular Volume 85 FL (80-99) Mean Corpuscular Hemoglobin 27.6 PG (27.0-31.0) Mean Corpuscular Hemoglobin Concent 32.6 G/DL (32.0-36.0) Red Cell Distribution Width 14.2 % (11.6-14.8) Platelet Count 201 K/UL (150-450) Mean Platelet Volume 8.4 FL (6.5-10.1) Neutrophils (%) (Auto) 47.5 % (45.0-75.0) Lymphocytes (%) (Auto) 36.6 % (20.0-45.0) Monocytes (%) (Auto) 9.4 % (1.0-10.0) Eosinophils (%) (Auto) 5.3 % (0.0-3.0) H Basophils (%) (Auto) 1.2 % (0.0-2.0) Sodium Level 142 MMOL/L (136-145) Potassium Level 4.3 MMOL/L (3.5-5.1) Chloride Level 106 MMOL/L (98-107) Carbon Dioxide Level 33 MMOL/L (21-32) H Anion Gap 3 mmol/L (5-15) L Blood Urea Nitrogen 20 mg/dL (7-18) H Creatinine 0.8 MG/DL (0.55-1.30) Estimat Glomerular Filtration Rate mL/min (>60) Glucose Level 136 MG/DL (74-106) H Calcium Level 9.4 MG/DL (8.5-10.1) Pro-B-Type Natriuretic Peptide 1273 pg/mL (0-125) H Objective HEAD AND NECK: Showed no JVD. LUNGS: Decreased breath sounds. CARDIOVASCULAR: Regular S1 and S2 with no gallop or murmur. The pacemaker is left subclavian. ABDOMEN: Soft and nontender. EXTREMITIES: She has 2+ pitting edema. JAMAAL LAWS Mar 26, 2017 11:04
[2017-03-26 12:00] VITALS: BP 115/67
[2017-03-26 12:52] VITALS: BP 115/67
--- NOTE | 2017-03-26 18:34 | Pulmonology Progress Note ---
Assessment/Plan Problems: (1) CHF (congestive heart failure) (2) COPD (chronic obstructive pulmonary disease) (3) Diabetes mellitus, type II (4) Generalized weakness (5) Pacemaker (6) Hepatitis C (7) HTN (hypertension) Assessment/Plan diuresing well on 2 linters Nasal cannula on lasix f/u cardio recommendations increase analgesics respiratory treatment check electrolytes titrate fi2 to sat of 92% dc planning to snif in process pt was seen earlier today Subjective ROS Limited/Unobtainable: No Constitutional: Reports: no symptoms HEENT: Repors: no symptoms Respiratory: Reports: no symptoms Allergies: Coded Allergies: ERYTHROMYCIN BASE (Verified Allergy, Intermediate, 08/28/16) MEPERIDINE (Verified Allergy, Unknown, 08/28/16) PENICILLINS (Verified Allergy, Unknown, 03/12/17) Tolerated Cefepime, Ceftriaxone, Keflex Objective Last 24 Hour Vital Signs Date Time Temp Pulse Resp B/P (MAP) Pulse Ox O2 Delivery O2 Flow Rate FiO2 03/26/17 12:52 115/67 03/26/17 12:00 97.0 76 18 115/67 100 03/26/17 08:52 77 110/53 03/26/17 08:50 77 18 Nasal Cannula 2.0 28 03/26/17 08:50 Nasal Cannula 2.0 28 03/26/17 08:50 99 Nasal Cannula 2.0 28 03/26/17 08:00 97.0 70 18 110/53 100 03/26/17 06:14 117/75 03/26/17 03:53 96.6 77 18 117/75 98 03/26/17 00:28 105/69 03/26/17 00:00 97.7 68 18 104/68 100 03/25/17 22:18 66 105/69 03/25/17 20:00 96.4 66 18 105/69 100 03/25/17 20:00 Nasal Cannula 2.0 03/25/17 19:59 74 18 Nasal Cannula 2.0 28 03/25/17 19:59 Nasal Cannula 2.0 28 03/25/17 19:59 98 Nasal Cannula 2.0 28 Intake and Output 03/26/17 03/27/17 19:00 07:00 Intake Total 1220 ml Balance 1220 ml Intake Oral 1220 ml # Voids 2 # Bowel Movements 1 Objective General Appearance: WD/WN HEENT: normocephalic, atraumatic Respiratory/Chest: chest wall non-tender, lungs clear Breasts: no masses Cardiovascular: normal peripheral pulses Abdomen: normal bowel sounds, soft, non tender Genitourinary: normal external genitalia Skin: no rash Laboratory Tests 03/26/17 05:05: White Blood Count 5.4, Red Blood Count 4.00L, Hemoglobin 11.1L, Hematocrit 34.0L , Mean Corpuscular Volume 85, Mean Corpuscular Hemoglobin 27.6, Mean Corpuscular Hemoglobin Concent 32.6, Red Cell Distribution Width 14.2, Platelet Count 201, Mean Platelet Volume 8.4, Neutrophils (%) (Auto) 47.5, Lymphocytes (% ) (Auto) 36.6, Monocytes (%) (Auto) 9.4, Eosinophils (%) (Auto) 5.3H, Basophils (%) (Auto) 1.2, Sodium Level 142, Potassium Level 4.3, Chloride Level 106, Carbon Dioxide Level 33H, Anion Gap 3L, Blood Urea Nitrogen 20H, Creatinine 0.8 , Estimat Glomerular Filtration Rate , Glucose Level 136H, Calcium Level 9.4, Pro-B-Type Natriuretic Peptide 1273H JONH RODRIGUEZ Mar 26, 2017 18:34
--- NOTE | 2017-03-27 13:57 | Discharge Summary ---
Discharge Summary Hospital Course Date of Admission Mar 20, 2017 at 22:01 Date of Discharge Mar 26, 2017 at 16:58 Admitting Diagnosis congestive heart failure HPI Amol Serrano is a 76 year old female who was admitted on Mar 20, 2017 at 22: 01 for Congestive Heart Failure Hospital Course [id number] Discharge Discharge Disposition Patient was discharged to SNF/Subacute Facility(03) Discharge Diagnoses: Delmi Graham NP Mar 27, 2017 13:57
--- NOTE | 2017-03-27 20:45 | Discharge Summary 2 SIG ---
DATE OF ADMISSION: 03/20/2017 DATE OF DISCHARGE: 03/26/2017 CONSULTANTS: 1. Chelsea Telles M.D. 2. Juve Jernigan M.D. BRIEF HOSPITAL COURSE: The patient is a 76-year-old female with medical history significant for diabetes mellitus, type 2, COPD, congestive heart failure, and history of sick sinus syndrome status post pacemaker presented to the hospital for shortness of breath that has been progressively worsening over the past 24 hours. She was recently hospitalized and treated at [facility] due to urinary tract infection. The patient called the EMS and was taken to [facility]. On evaluation at ED, she was noted to have elevated systolic blood pressure 185. She was given IV hydralazine. EKG showed a paced rhythm. BNP was elevated to greater than 1000. She was admitted to telemetry for acute congestive heart failure and accelerated hypertension. She had an echocardiogram done that showed ejection fraction of 50% to 55% with global left ventricular hypokinesis and left ventricular enlargement. There was trace aortic regurgitation, moderate mitral regurgitation, moderate tricuspid regurgitation, and RVSP 37 consistent with mild pulmonary hypertension. She was given Aldactone 25 mg and Lasix 40 mg IV every eight hours. She has paroxysmal atrial fibrillation and had a [employer] pacemaker implantation. Pacemaker interrogation done, showed normal function. She was continued on Xarelto 20 mg daily. She had lower extremity edema. Venous duplex showed negative DVT. She came in with a sacrococcygeal stage III pressure ulcer. Wound care was rendered. The patient has combined systolic and diastolic congestive heart failure. Lasix was eventually changed to 40 mg IV daily. Verapamil was changed to Lopressor in view of cardiomyopathy. Blood cultures did not isolate any growth. She had been diuresing well. She was eventually discharged to SNF. The patient was cleared for discharge on 03/24/2017, however, the patient appealed discharge. Finally, the patient was transferred to half-way facility on 03/26/2017. FINAL DIAGNOSES: 1. Acute on chronic combined systolic and diastolic congestive heart failure. 2. Paroxysmal atrial fibrillation status post [employer] pacemaker implantation. 3. Hypertension. 4. Morbid obesity. 5. Dyslipidemia. 6. Diabetes type 2. 7. Hypertensive urgency. 8. Chronic obstructive pulmonary disease. 9. She has a sacral coccygeal pressure ulcer stage III, present on admission. DISPOSITION: The patient was discharged to [facility]. DISCHARGE MEDICATIONS: Refer to medication list.. Wilder Colin M.D. I have been assigned to dictate discharge summary on this account and I was not involved in the patient's management. Delmi Graham N.P. DR: HARSHA JOB#: [id number] CC: BLANCA
== END 2017-03-26 16:58 | DRG 291 ==
LOC: EDBD 19:13 → EMR 19:45 → 2E 22:01 → EDBEDREQ 23:13 → 4E 03-22 14:38
DX: I11.0 Hypertensive heart disease with heart failure (principal); L89.153 Pressure ulcer of sacral region, stage 3; J44.9 Chronic obstructive pulmonary disease, unspecified; I48.0 Paroxysmal atrial fibrillation; E66.01 Morbid (severe) obesity due to excess calories; I36.1 Nonrheumatic tricuspid (valve) insufficiency; I50.43 Acute on chronic combined systolic (congestive) and diastolic (congestive) heart failure; E11.9 Type 2 diabetes mellitus without complications; Z95.0 Presence of cardiac pacemaker; B19.20 Unspecified viral hepatitis C without hepatic coma; Z68.35 Body mass index [BMI] 35.0-35.9, adult; Z79.4 Long term (current) use of insulin; Z88.6 Allergy status to analgesic agent; Z88.0 Allergy status to penicillin; Z88.8 Allergy status to other drugs, medicaments and biological substances; E78.5 Hyperlipidemia, unspecified; I34.0 Nonrheumatic mitral (valve) insufficiency; I16.0 Hypertensive urgency; Z79.01 Long term (current) use of anticoagulants
CPT/HCPCS: 36415; 71010; 80048; 80053; 81003; 82248; 82550; 82553; 82962; 83605; 83735; 83880; 84100; 84484; 85025; 87040; 87081; 93005; 93306; 93970; 93971; 94664; 94760; 99285; J1815; J8499